=== PATIENT | male | born 1935 | race Caucasian/White ===

== ENCOUNTER → 2016-12-24 | Outpatient (REF) | payer MEDICARE, OTHER | LOC: M SMT 16:54 | PROVIDERS: ATTEND Urology | DX: R31.29 Other microscopic hematuria (principal) | CPT/HCPCS: 87086; G0463 ==

== ENCOUNTER 2018-03-08 13:34 | Emergency (ER) | payer MEDICARE, OTHER ==
[~2018-03-08] VITALS: Ht 177.8 cm; Wt 90.9 kg
[2018-03-08 14:11] LABS: BASO % 0.4 % (0.0-1.0); EOS # 0.5 10^3/uL (0.0-0.50); EOS % 7.1 % (0.0-3.0); HEMATOCRIT 36.7 % (42.0-52.0); HEMOGLOBIN 12.2 g/dl (13.5-17.5); LYMPH # 1.1 10^3/uL (1.5-4.5); LYMPH % 15.6 % (24.0-44.0); MEAN CORPUSCULAR HEMOGLOBIN 33.2 pg (27.0-33.0); MEAN CORPUSCULAR HGB CONC 33.2 g/dl (32.0-36.5); MEAN CORPUSCULAR VOLUME 99.7 fl (80.0-96.0); MONO # 0.6 10^3/uL (0.0-0.8); MONO % 8.2 % (0.0-5.0); NEUTROPHILS # 4.8 10^3/uL (1.8-7.7); NEUTROPHILS % 68.4 % (36.0-66.0); PLATELET COUNT, AUTOMATED 166 10^3/uL (150-450); RED BLOOD COUNT 3.68 10^6/uL (4.30-6.10); WHITE BLOOD COUNT 6.9 10^3/uL (4.0-10.0)
[2018-03-08] MEDS ORDERED: LISI10TA4 PO (14:13)
[2018-03-08] MEDS ORDERED: ELIQ2.5T PO (14:13)
[2018-03-08] MEDS ORDERED: ALLO10TA PO (14:13)
[2018-03-08] MEDS ORDERED: ACET500T15 PO (14:13)
[2018-03-08] MEDS ORDERED: GABA-1171 PO (14:13)
[2018-03-08] MEDS ORDERED: SITA50TAB PO (14:13)
[2018-03-08] MEDS ORDERED: CARV6.25 PO (14:13)
[2018-03-08] MEDS ORDERED: ATOR1TAB21 PO (14:13)
[2018-03-08 14:18] LABS: VENOUS BASE EXCESS -2.9 (-2.0-2.0); VENOUS HCO3 24.1 MEQ/L (23.0-27.0); VENOUS O2 SATURATION 83.9 % (60.0-80.0); VENOUS PARTIAL PRESSURE CO2 50.6 mmHg (38.0-50.0); VENOUS PH 7.295 UNITS (7.330-7.430); VENOUS STANDARD HCO3 21.8 MEQ/L; VENOUS TOTAL CO2 25.6 MEQ/L (24.0-28.0)
[2018-03-08 14:27] LABS: INR 1.13; PROTHROMBIN TIME 14.7 SECONDS (12.1-14.4)
--- NOTE | 2018-03-08 14:27 | REP ---
Chest one-view HISTORY: Cough Comparison: 07/19/2012 An increase in interstitial markings is present in the lungs consistent with chronic interstitial fibrosis. The heart is normal in size. The pulmonary vasculature is normal in appearance. Impression: Chronic interstitial fibrosis. Electronically Signed by Karlo Rawls MD 03/08/2018 02:18 P
[2018-03-08 14:51] LABS: INFLUENZA A AMPLIFICATION NEGATIVE (NEGATIVE); INFLUENZA B AMPLIFICATION NEGATIVE (NEGATIVE)
[2018-03-08 15:01] LABS: ALBUMIN 2.5 GM/DL (3.2-5.2); ALT/SGPT 24 U/L (12-78); BILIRUBIN,DIRECT < 0.1 MG/DL (0.0-0.2); BILIRUBIN,TOTAL 0.3 MG/DL (0.2-1.0); BLOOD UREA NITROGEN 34 MG/DL (7-18); CALCIUM LEVEL 8.3 MG/DL (8.8-10.2); CARBON DIOXIDE LEVEL 21 MEQ/L (21-32); CHLORIDE LEVEL 108 MEQ/L (98-107); CPK CREATINE PHOSPHOKINASE 86 U/L (39-308); CREATININE FOR GFR 1.75 MG/DL (0.70-1.30); GLOMERULAR FILTRATION RATE 39.9 (>35); GLUCOSE, FASTING 109 MG/DL (70-100); MB/CK RELATIVE INDEX 3.72 (< OR =4); NT-PRO BNP 8929 PG/ML (<450); POTASSIUM SERUM 4.2 MEQ/L (3.5-5.1); SODIUM LEVEL 140 MEQ/L (136-145); TOTAL PROTEIN 5.8 GM/DL (6.4-8.2); TROPONIN I 0.02 NG/ML (< 0.10)
--- NOTE | 2018-03-08 15:42 | REP ---
BILATERAL LOWER EXTREMITY DUPLEX VEINS: HISTORY: Swelling. RIGHT LOWER EXTREMITY: There are no filling defects in the deep venous system. The deep venous system is patent. IMPRESSION: There is no deep venous thrombosis. LEFT LOWER EXTREMITY: There are no filling defects in the deep venous system. The deep venous system is patent. IMPRESSION: There is no deep venous thrombosis. Electronically Signed by Karlo Rawls MD 03/08/2018 03:54 P
[2018-03-08] MEDS ORDERED: FUROSEMIDE 40 MG/4 ML VIAL (J1940) IV ONE (16:15)
[2018-03-08] MEDS ORDERED: DEMA20TA6 PO (16:18)
[2018-03-08 17:24] VITALS: BP 182/93
--- NOTE | 2018-03-08 20:23 | ECGEPIP ---
Stationary ECG Study [facility] - ED Test Date: 2018-03-08 Pat Name: ARRON MACIAS Department: Room: - Gender: M Admitting Manager: TC : 1935 Requested By: Gisella Mcneal Order Number: [id number] Reading MD: Gisella Mcneal Measurements Intervals [place] Rate: 81 P: [place]: 0 QRS: -45 QRSD: 117 T: -1 QT: 375 QTc: 437 Interpretive Statements ATRIAL FIBRILLATION WITH ABERRANT CONDUCTION OR VENTRICULAR PREMATURE COMPLEXES MARKED LEFT AXIS DEVIATION ANTEROSEPTAL MYOCARDIAL INFARCTION, OF INDETERMINATE AGE NO PRIOR FOR COMPARISON Electronically Signed On 03-08-2018 20:23:51 EST by Gisella Mcneal
== END 2018-03-08 17:25 | disposition home or self-care (01) ==
LOC: M ED 13:34
DX: I50.30 Unspecified diastolic (congestive) heart failure (principal); I11.0 Hypertensive heart disease with heart failure; I48.91 Unspecified atrial fibrillation; E78.5 Hyperlipidemia, unspecified; I27.20 Pulmonary hypertension, unspecified; Z88.0 Allergy status to penicillin; Z88.8 Allergy status to other drugs, medicaments and biological substances; Z79.899 Other long term (current) drug therapy; Z79.01 Long term (current) use of anticoagulants; Z79.84 Long term (current) use of oral hypoglycemic drugs
CPT/HCPCS: 36415; 71045; 80048; 80076; 82550; 82553; 82803; 83605; 83880; 84443; 84484; 85025; 85610; 87040; 87486; 87502; 87581; 87633; 87798; 93005; 93041; 93970; 96374; 99285; J1940

== ENCOUNTER → 2018-03-13 | Outpatient (CLI) | payer MEDICARE, OTHER ==
[~2018-03-13] MED LIST: ACET500T15 PO; ALLO10TA PO; ATOR1TAB21 PO; CARV6.25 PO; DEMA20TA6 PO; ELIQ2.5T PO; GABA-1171 PO; LISI10TA4 PO; SITA50TAB PO
[2018-03-13 13:44] LABS: ALBUMIN 2.5 GM/DL (3.2-5.2); CALCIUM LEVEL 8.2 MG/DL (8.8-10.2); CREATININE FOR GFR 1.77 MG/DL (0.70-1.30); GLOMERULAR FILTRATION RATE 39.4 (>35); PHOSPHORUS LEVEL 3.8 MG/DL (2.5-4.9); POTASSIUM SERUM 3.8 MEQ/L (3.5-5.1)
== END ==
LOC: M LAB 12:21
PROVIDERS: ATTEND Internal Medicine Cardiovascular Disease
DX: I50.31 Acute diastolic (congestive) heart failure (principal)

== ENCOUNTER 2018-05-11 12:54 | Emergency (ER) | payer MEDICARE, OTHER ==
[~2018-05-11] VITALS: Ht 177.8 cm; Wt 40.9 kg
--- NOTE | 2018-05-11 14:07 | REP ---
CHEST, PORTABLE: Two AP portable views of the chest are performed and compared to a prior study of 03/08/2018. There appears to be infiltrate/atelectasis in each lung base. I suspect small effusions. There is mild cardiomegaly. There is calcification and tortuosity of the thoracic aorta. The mediastinal silhouette is unchanged. IMPRESSION: Patchy bibasilar atelectasis/infiltrate with probable small effusions. Electronically Signed by Mauricio Moyer MD 05/11/2018 05:12 P
[2018-05-11 14:40] LABS: BASO % 0.5 % (0.0-1.0); EOS # 0.5 10^3/uL (0.0-0.50); EOS % 5.7 % (0.0-3.0); HEMATOCRIT 33.6 % (42.0-52.0); HEMOGLOBIN 10.8 g/dl (13.5-17.5); LYMPH % 12.5 % (24.0-44.0); MEAN CORPUSCULAR HEMOGLOBIN 32.1 pg (27.0-33.0); MEAN CORPUSCULAR HGB CONC 32.1 g/dl (32.0-36.5); MONO # 0.6 10^3/uL (0.0-0.8); MONO % 7.6 % (0.0-5.0); NEUTROPHILS # 5.9 10^3/uL (1.8-7.7); NEUTROPHILS % 73.3 % (36.0-66.0); PLATELET COUNT, AUTOMATED 212 10^3/uL (150-450); RED BLOOD COUNT 3.36 10^6/uL (4.30-6.10); WHITE BLOOD COUNT 8.1 10^3/uL (4.0-10.0)
[2018-05-11 14:48] LABS: VENOUS BASE EXCESS 0.7 (-2.0-2.0); VENOUS HCO3 26.6 MEQ/L (23.0-27.0); VENOUS O2 SATURATION 69.5 % (60.0-80.0); VENOUS PARTIAL PRESSURE CO2 47.8 mmHg (38.0-50.0); VENOUS PARTIAL PRESSURE O2 40.8 mmHg (30.0-50.0); VENOUS PH 7.363 UNITS (7.330-7.430); VENOUS STANDARD HCO3 24.5 MEQ/L
[2018-05-11 14:51] LABS: INR 1.27
[2018-05-11 15:10] LABS: BILIRUBIN,DIRECT 0.1 MG/DL (0.0-0.2); BILIRUBIN,TOTAL 0.3 MG/DL (0.2-1.0); CALCIUM LEVEL 8.1 MG/DL (8.8-10.2); CREATININE FOR GFR 1.65 MG/DL (0.70-1.30); GLOMERULAR FILTRATION RATE 42.7 (>35); MB/CK RELATIVE INDEX 5.24 (< OR =4); POTASSIUM SERUM 3.6 MEQ/L (3.5-5.1); THYROID STIMULATING HORMONE 3.14 uIU/ML (0.358-3.740); TOTAL PROTEIN 5.2 GM/DL (6.4-8.2); TROPONIN I 0.03 NG/ML (< 0.10)
[2018-05-11 15:11] LABS: INFLUENZA A AMPLIFICATION NEGATIVE (NEGATIVE); INFLUENZA B AMPLIFICATION NEGATIVE (NEGATIVE)
[2018-05-11] MEDS ORDERED: FUROSEMIDE 40 MG/4 ML VIAL (J1940) IV ONE (16:00)
[2018-05-11] MEDS ORDERED: NITROGLYCERIN 2% OINT 1 GM *U/D* PKT TOP ONE ×2 (18:30→21:15)
[2018-05-11] MEDS ORDERED: CARVedilol 6.25 MG TAB PO ONE ×2 (20:00→21:30)
[2018-05-11 21:33] VITALS: BP 198/99
[2018-05-11 21:34] VITALS: BP 180/90
--- NOTE | 2018-05-12 06:59 | ECGEPIP ---
Stationary ECG Study [facility] - ED Test Date: 2018-05-11 Pat Name: ARRON MACIAS Department: Room: - Gender: M Lead Sustainability Specialist: TC : 1935 Requested By: Gisella Mcneal Order Number: [id number] Reading MD: Jasvir Iqbal Measurements Intervals [place] Rate: 80 P: MD: 0 QRS: -31 QRSD: 125 T: -12 QT: 398 QTc: 460 Interpretive Statements ATRIAL FIBRILLATION WITH ABERRANT CONDUCTION OR VENTRICULAR PREMATURE COMPLEXES LEFT AXIS DEVIATION ANTEROSEPTAL MYOCARDIAL INFARCTION, OF INDETERMINATE AGE SIMILAR TO 03/08/18 Electronically Signed On 05-12-2018 6:59:15 EST by Jasvir Iqbal
== END 2018-05-11 21:38 | disposition short-term general hospital (02) ==
LOC: M ED 12:54
DX: I50.9 Heart failure, unspecified (principal); I35.0 Nonrheumatic aortic (valve) stenosis; I48.91 Unspecified atrial fibrillation; R91.8 Other nonspecific abnormal finding of lung field; E11.9 Type 2 diabetes mellitus without complications; I11.0 Hypertensive heart disease with heart failure; E78.5 Hyperlipidemia, unspecified; I27.20 Pulmonary hypertension, unspecified; Z87.891 Personal history of nicotine dependence; Z88.0 Allergy status to penicillin; Z88.8 Allergy status to other drugs, medicaments and biological substances; Z79.899 Other long term (current) drug therapy; Z79.01 Long term (current) use of anticoagulants
CPT/HCPCS: 71045; 80048; 80076; 82550; 82553; 82803; 83605; 83880; 84443; 84484; 85025; 85610; 87040; 87502; 93005; 93041; 96374; 99285; J1940

== ENCOUNTER 2018-05-27 13:49 | Inpatient (IN) | payer MEDICARE, OTHER ==
[~2018-05-27] VITALS: Ht 177.8 cm; Wt 90.9 kg
[2018-05-27] MEDS ORDERED: PEPC1TAB5 PO (14:11)
[2018-05-27] MEDS ORDERED: ASPI-161 PO (14:11)
[2018-05-27] MEDS ORDERED: SENN8.6T28 PO (14:11)
[2018-05-27] MEDS ORDERED: SYNT25TA PO (14:11)
[2018-05-27] MEDS ORDERED: FUROSEMIDE 40 MG/4 ML VIAL (J1940) IV ONE (14:30)
[2018-05-27] MEDS ORDERED: NITROGLYCERIN 2% OINT 1 GM *U/D* PKT TOP ONE (14:30)
[2018-05-27 14:50] LABS: BASO % 0.3 % (0.0-1.0); EOS # 0.2 10^3/uL (0.0-0.50); EOS % 2.1 % (0.0-3.0); HEMATOCRIT 29.1 % (42.0-52.0); HEMOGLOBIN 9.4 g/dl (13.5-17.5); LYMPH # 0.8 10^3/uL (1.5-4.5); LYMPH % 8.5 % (24.0-44.0); MEAN CORPUSCULAR HEMOGLOBIN 32.2 pg (27.0-33.0); MEAN CORPUSCULAR HGB CONC 32.3 g/dl (32.0-36.5); MEAN CORPUSCULAR VOLUME 99.7 fl (80.0-96.0); MONO # 0.8 10^3/uL (0.0-0.8); MONO % 7.6 % (0.0-5.0); NEUTROPHILS % 80.9 % (36.0-66.0); PLATELET COUNT, AUTOMATED 265 10^3/uL (150-450); RED BLOOD COUNT 2.92 10^6/uL (4.30-6.10); WHITE BLOOD COUNT 9.9 10^3/uL (4.0-10.0)
[2018-05-27 15:05] LABS: INR 1.58; PROTHROMBIN TIME 19.1 SECONDS (12.1-14.4)
[2018-05-27 15:09] LABS: INFLUENZA A AMPLIFICATION NEGATIVE (NEGATIVE); INFLUENZA B AMPLIFICATION NEGATIVE (NEGATIVE)
[2018-05-27 15:14] LABS: ALBUMIN 2.2 GM/DL (3.2-5.2); BILIRUBIN,DIRECT 0.1 MG/DL (0.0-0.2); BILIRUBIN,TOTAL 0.4 MG/DL (0.2-1.0); CALCIUM LEVEL 8.4 MG/DL (8.8-10.2); CREATININE FOR GFR 2.09 MG/DL (0.70-1.30); GLOMERULAR FILTRATION RATE 32.5 (>35); MB/CK RELATIVE INDEX 7.08 (< OR =4); THYROID STIMULATING HORMONE 3.71 uIU/ML (0.358-3.740); THYROXINE (T4) 8.6 UG/DL (4.5-12.0); TOTAL PROTEIN 5.7 GM/DL (6.4-8.2); TROPONIN I 0.06 NG/ML (< 0.10)
[2018-05-27 15:45] LABS: MAGNESIUM LEVEL 1.8 MG/DL (1.8-2.4)
[2018-05-27] MEDS ORDERED: SITA50TAB PO (17:53)
[2018-05-27] MEDS ORDERED: OCEA0.654 (17:53)
[2018-05-27] MEDS ORDERED: ZYLO300T6 PO (17:53)
[2018-05-27] MEDS ORDERED: TORS20TA2 PO (17:53)
[2018-05-27] MEDS ORDERED: ASPI81TA24 PO (17:53)
[2018-05-27] MEDS ORDERED: ATOR40TA75 PO (17:53)
[2018-05-27] MEDS ORDERED: CARV12.5 PO (17:53)
[2018-05-27] MEDS ORDERED: ACET1TAB55 PO (17:55)
[2018-05-27] MEDS ORDERED: LISI10TA4 PO (17:56)
[2018-05-27] MEDS ORDERED: CLEO300C2 PO (17:59)
[2018-05-27] MEDS ORDERED: SODIUM CHLORIDE NASAL 0.65% SPRAY BTL (OCEAN) PRN (18:30)
--- NOTE | 2018-05-27 19:21 | ECGEPIP ---
Stationary ECG Study [facility] - ED Test Date: 2018-05-27 Pat Name: ARRON MACIAS Department: Room: - Gender: M Assembly Machine Offbearer: DEMARCO : 1935 Requested By: ANDRESSA Torres Order Number: [id number] Reading MD: Jasvir Iqbal Measurements Intervals [place] Rate: 84 P: [place]: 0 QRS: -22 QRSD: 173 T: 103 QT: 416 QTc: 493 Interpretive Statements ATRIAL FIBRILLATION WITH ABERRANT CONDUCTION OR VENTRICULAR PREMATURE COMPLEXES LEFT BUNDLE BRANCH BLOCK BASELINE ARTIFACT AFFECTS INTERPRETATION Electronically Signed On 05-27-2018 19:21:31 EDT by Jasvir Iqbal
[2018-05-27] MEDS ORDERED: hydrALAZINE INJ 20 MG/ML VIAL IV STA (19:46)
[2018-05-27] MEDS ORDERED: hydrALAZINE INJ 20 MG/ML VIAL IV SCH (20:00)
[2018-05-27] MEDS ORDERED: hydrALAZINE INJ 20 MG/ML VIAL IV PRN (20:08)
--- NOTE | 2018-05-27 20:14 | HPEPDOC ---
[facility] Medical History & Physical Date of Admission May 27, 2018 Attending Physician: JABIER ZARATE MD History and Physical CHIEF COMPLAINT: Shortness of breath HISTORY OF PRESENT ILLNESS:. Patient is an 82-year-old male with a past medical history significant for severe aortic stenosis with recent transcatheter aortic heart valve replacement (TAVR), recent diagnosis of congestive heart failure with diastolic dysfunction, atrial fibrillation on chronic anticoagulation, hypothyroidism and diabetes who presented to [facility] emergency department with complaint of shortness of breath. Patient is accompanied by his family who gave the majority of the history as the patient has a baseline confusion secondary to a recent stroke. Family states that the patient was recently diagnosed with diastolic congestive heart failure in March. He also had a diagnosis of aortic stenosis for which 2 weeks ago he had a TAVR completed at [facility] in [place]. The family states that during his hos pital stay at [facility], he suffered a stroke, since that time the patient has difficulty with comprehension. With exception to his stroke, his TAVR procedure went well. In the days following he did well. During his stay at [facility], his Torosemide dose was increased to 40 mg BID. The patient had returned home on Tuesday05/22/2018. Since that time, he has been complaining of progressive shortn ess of breath. He also has developed difficulty laying flat and on his side. He states that he feels like he can't breath. He denies any chest pain. The patients family also mentioned that they noticed that his legs were quite swollen since returning home from the hospital. The patient has been compliant with his medication and denies any excessive salt or fluid intake. The family became concerned as he continued to complain of shortness of breath and appeared to be getting worse. The family decided to bring him to the ER. At the ER the patient received a CT which demonstrated a large right sided pleural effusion as well as a left pleural effusion. His laboratory studies suggested volume overload as well as an CARLOS. He received 40mg IV lasix injection. Given his recent TAVR procedure, the patient received an Echocardiogram which was read by the middle school special education teacher manager marketing. The patients echo dem onstrated no abnormality with the aortic valve. The manager marketing middle school special education teacher suggested further diaeresis. Hospitalist service was then consulted and the patient was admitted for further evaluation and management. PAST MEDICAL HISTORY: 1. Aortic stenosis and with recent transcatheter aortic heart valve replacement. 2. Diastolic congestive heart failure. 3. Atrial fibrillation on chronic anticoagulation. 4. Hypothyroidism 5. History of cerebral vascular accident. 6. Diabetes mellitus type 2 PAST SURGICAL HISTORY: 1. TAVR SOCIAL HISTORY: Patient lives at home with . He is a former smoker who quit 50 years ago. He is an occasional drinker. He denies illicit drug use FAMILY HISTORY: Noncontributory ALLERGIES: Please see below. REVIEW OF SYSTEMS: CONSTITUTIONAL: Denies fevers, chills, night sweats, fatigue, or unintentional weight loss. HEENT:. Denies dysphagia. Denies cough. CARDIOVASCULAR:. Denies chest pain, denies palpitations or feelings of heart racing. RESPIRATORY: Complains of shortness of breath. Denies wheezing GASTROINTESTINAL:. Denies abdominal pain. Denies diarrhea or constipation. GENITOURINARY:. Denies dysuria, or increased frequency. SKIN: Denies rash or lesions. NEUROLOGICAL: Admits to memory and cognition issues secondary to his recent stroke. PSYCHIATRIC:. Denies depression or anxiety. ENDOCRINE: Denies heat intolerance or cold intolerance HEMATOLOGIC/LYMPHATIC: Denies easy bruising or bleeding HOME MEDICATIONS: Please see below. PHYSICAL EXAMINATION: VITAL SIGNS: Temperature 97.9, pulse 102, respiratory rate 20, blood pressure 192\97, pulse oximetry 94% on room air. GENERAL APPEARANCE: Awake and alert. Appears to have baseline confusion although oriented to person and place. Appears in no acute distress. HEENT: Atraumatic, normocephalic. Trachea is midline. Eyes are non-icteric CARDIOVASCULAR: Distant heart sounds. Irregularly irregular rhythm. Slightly tachycardic rate. No clicks, rubs, or murmurs LUNGS: Diminished breath sounds bilaterally greater on the right compared to left. Slight crackles bilaterally. No wheezes. Diaphragmatic breathing ABDOMEN: Soft, nondistended, nontender to palpation in all four quadrants. Positive bowel sounds. Diaphragmatic breathing EXTREMITIES: 2-3mm pitting edema in bilateral lower extremities NEUROLOGICAL: CN II-XII grossly intact. Baseline cognitive dysfunction PSYCHIATRIC: Mood and affect appear appropriate LABORATORY DATA: See below. IMAGING: CT imaging demonstrating bilateral pleural effusion. Right greater than left. MICROBIOLOGY: Please see below. ASSESSMENT: Patient is an 82 year old male with recent TAVR procedure for aortic stenosis, history of diastolic CHF, atrial fibrillation, hypothyroidism, and diabetes mellitus type II who presented to the [facility] ER with complaint of shortness of breath which has progressed since his discharge from [facility] on Tuesday05/22/2018. Patient had received an echocardiogram in the ED which was read by the middle school special education teacher manager marketing and demonstrated no abnormalities with the aortic valve. . PLAN: 1. Type 1 Acute Cardiorenal Syndrome -Patient has a history of diastolic heart failure. His diuretics were recently increased however, he continued to develop shortness of breath over the past week. -Patient received 40 IV lasix in ED. He will receive 60mg IV lasix BID. -Monitor BMP with ongoing dieresis -Strict I's&O's with 1500cc fluid restriction -Echocardiogram performed in ED. Dr. Prasad reviewed. Aortic valve is within normal limits. Suggests diaeresis -Patient had an elevated creatinine likely secondary to his volume overload will continue to monitor Cr for resolution with ongoing dieresis -Consider Cardiology consult if patient does not improve with dieresis 2. CARLOS likely seocndary to Acute diastolic CHF excaerbation -As stated in above. Patient likely has cardiorenal syndrome secondary to volume overload. -Will trend Cr for resolution -Consider Nephro consult if patient remains volume overloaded 3. Bilateral Pleural Effusion -Patient has a large right sided pleural effusion on the right as well as an effusion on the left likely secondary to his CHF -Will continue to monitor for improvement with lasix treatment 4. Atrial fibrillation -Patient is anticoagulated on Eliquis. Will continue -Will increase dose of metoprolol as patient was slightly tachycardiac 5. Hypertension -Patient was fairly hypertensive at admission. Have given hydralizine 10mg IV. -IV hydralazine q4hprn for systolic greater than 180 - His hypertension will likely resolve with ongoing diaeresis 6. Diabetes mellitus type 2 -Sliding scale coverage 7. DVT prophylaxis -Patient is chronically anticoagulated on eliquis Vital Signs Vital Signs Date Time Temp Pulse Resp B/P (MAP) Pulse Ox O2 Delivery O2 Flow Rate FiO2 05/27/18 19:05 97.9 102 20 192/97 (128) 94 Room Air Laboratory Data Labs 24H Laboratory Tests 2 05/27/18 14:22: Immature Granulocyte % (Auto) 0.6, White Blood Count 9.9, Red Blood Count 2.92L, Hemoglobin 9.4L, Hematocrit 29.1L, Mean Corpuscular Volume 99.7H, Mean Corpuscular Hemoglobin 32.2, Mean Corpuscular Hemoglobin Concent 32.3, Red Cell Distribution Width 15.1H, Platelet Count 265, Neutrophils (%) (Auto) 80.9H, Lymphocytes (%) (Auto) 8.5L, Monocytes (%) (Auto) 7.6H, Eosinophils (%) (Auto) 2.1, Basophils (%) (Auto) 0.3, Neutrophils # (Auto) 8.0H, Lymphocytes # (Auto) 0.8L, Monocytes # (Auto) 0.8, Eosinophils # (Auto) 0.2, Basophils # (Auto) 0.0, Nucleated Red Blood Cells % (auto) 0.0, Prothrombin Time 19.1H, Prothromb Time International Ratio 1.58, Anion Gap 9, Glomerular Filtration Rate 32.5L, Calcium Level 8.4L, Magnesium Level 1.8, Aspartate Amino Transf (AST/SGOT) 17, Alanine Aminotransferase (ALT/SGPT) 15, Alkaline Phosphatase 210H, Total Bilirubin 0.4, Direct Bilirubin 0.1, Total Creatine Kinase 48, Creatine Kinase MB 3.0, Creatine Kinase MB Relative Index 7.08H, Troponin I 0.06, WK-Gtx-F-Type Natriuretic Pe ptide [id number], Total Protein 5.7L, Albumin 2.2L, Albumin/Globulin Ratio 0.63L, Thyroid Stimulating Hormone (TSH) 3.710, Thyroxine (T4) 8.6 05/27/18 14:23: Urine Color YELLOW, Urine Appearance HAZY, Urine pH 5.0, Urine Specific [place] 1.014, Urine Protein 3+H, Urine Glucose (UA) 2+H, Urine Ketones NEGATIVE, Urine Blood 1+H, Urine Nitrite NEGATIVE, Urine Bilirubin NEGATIVE, Urine Urobilinogen 0.2, Urine Leukocyte Esterase NEGATIVE, Urine WBC (Auto) 18H, Urine RBC (Auto) 9H, Urine Hyaline Casts (Auto) 27, Urine Bacteria (Auto) 1+H, Urine Squamous Epithelial Cells 1, Urine Mucus (Auto) SMALL, Urine Sperm (Auto) , Lactic Acid Level 1.0, Influenza Type A (RT-PCR) NEGATIVE, Influenza Type B (RT-PCR) NEGATIVE CBC/BMP Laboratory Tests 05/27/18 14:22 Red Blood Count 2.92 L, Mean Corpuscular Volume 99.7 H, Mean Corpuscular Hemoglobin 32.2, Mean Corpuscular Hemoglobin Concent 32.3, Red Cell Distribution Width 15.1 H, Neutrophils (%) (Auto) 80.9 H, Lymphocytes (%) (Auto) 8.5 L, Monocytes (%) (Auto) 7.6 H, Eosinophils (%) (Auto) 2.1, Basophils (%) (Auto) 0.3, Neutrophils # (Auto) 8.0 H, Lymphocytes # (Auto) 0.8 L, Monocytes # (Auto) 0.8, Eosinophils # (Auto) 0.2, Basophils # (Auto) 0.0 Microbiology Microbiology 05/27/18 Blood Culture, Received Pending 05/27/18 Blood Culture, Received Pending 05/27/18 Urine Culture, Received Pending Home Medications Scheduled Allopurinol (Zyloprim) 300 Mg Tab, 300 MG PO QPM Apixaban Base (Eliquis) 2.5 Mg Tab, 2.5 MG PO BID Aspirin (Aspirin EC) 81 Mg Tab, 81 MG PO DAILY Atorvastatin Calcium (Atorvastatin Calcium) 40 Mg Tab, 40 MG PO DAILY Carvedilol (Carvedilol) 12.5 Mg Tab, 12.5 MG PO BID Clindamycin Hcl (Cleocin) 300 Mg Cap, 600 MG PO ASDIRECTED TAKE 1 HOUR PRIOR TO ANY DENTAL PROCEDURES OR CLEANINGS Famotidine (Pepcid) 20 Mg Tab, 20 MG PO QHS Levothyroxine Sodium (Synthroid) 25 Mcg Tab, 25 MCG PO DAILY Lisinopril (Lisinopril) 10 Mg Tab, 10 MG PO DAILY Senna (Senna-Tabs) 8.6 Mg Tab, 8.6 MG PO DAILY Sitagliptin (Januvia) 50 Mg Tab, 50 MG PO QPM Torsemide (Torsemide) 20 Mg Tab, 40 MG PO BID Scheduled PRN Acetaminophen (Acetaminophen) 325 Mg Tab, 650 MG PO Q4H PRN for PAIN / FEVER Sodium Chloride (Pope Nasal Vici) 0.65 % Spr, 2 SPRAY NA QHS PRN for NASAL CONGESTION EACH NOSTRIL Allergies Coded Allergies: NSAIDs (Verified Allergy, Unknown, 03/08/18) Penicillins (Verified Allergy, Unknown, 03/08/18) Attending Note I have both independently examined this patient as well as reviewed the H&P. I have discussed in detail with the resident the findings and plan of treatment as documented in the resident's note GME ATTESTATION GME ATTESTATION My faculty preceptor for this patient encounter was physically present during the encounter and was fully available. All aspects of the patient interview, examination, medical decision making process, and medical care plan development were reviewed and approved by the faculty preceptor. The faculty preceptor is aware and concurs with the plan as stated in the body of this note and will attest to such by his/her cosignature. MACI GÓMEZ DO May 27, 2018 20:14 JUSTIN PERLA MD May 29, 2018 16:51
[2018-05-27] MEDS ORDERED: GLUCAGON FOR INJ 1 MG VIAL (J1610) SC PRN (20:15)
[2018-05-27] MEDS ORDERED: GLUCOSE 4 GM CHEW TABLET PO PRN (20:15)
[2018-05-27] MEDS ORDERED: DEXTROSE 50% 50 ML SYRINGE IV PRN (20:15)
[2018-05-27 20:28] LABS: CREATININE FOR GFR 2.1 MG/DL (0.70-1.30); GLOMERULAR FILTRATION RATE 32.3 (>35); POTASSIUM SERUM 4.5 MEQ/L (3.5-5.1)
[2018-05-27] MEDS: HumaLOG INSULIN (NovoLOG) PER UNIT SC SCH (21:00)
[2018-05-27 21:10] VITALS: BP 159/95
[2018-05-27] MEDS: FUROSEMIDE 100 MG/10 ML VIAL (J1940) IV SCH (22:12)
[2018-05-27] MEDS: ALLOPURINOL 300 MG TAB PO SCH (22:14)
[2018-05-27] MEDS: CARVedilol 12.5 MG TAB PO SCH (22:14)
[2018-05-27] MEDS: APIXABAN 2.5 MG TAB (ELIQUIS) PO SCH (22:14)
[2018-05-27] MEDS: FAMOTIDINE 20 MG TAB PO SCH (22:14)
[2018-05-28] VITALS (7 sets, daily range): BP systolic 124–150; BP diastolic 68–92
[2018-05-28 05:51] LABS: HEMATOCRIT 28.5 % (42.0-52.0); HEMOGLOBIN 9.3 g/dl (13.5-17.5); MEAN CORPUSCULAR HEMOGLOBIN 31.7 pg (27.0-33.0); MEAN CORPUSCULAR HGB CONC 32.6 g/dl (32.0-36.5); MEAN CORPUSCULAR VOLUME 97.3 fl (80.0-96.0); PLATELET COUNT, AUTOMATED 256 10^3/uL (150-450); RED BLOOD COUNT 2.93 10^6/uL (4.30-6.10); WHITE BLOOD COUNT 9.3 10^3/uL (4.0-10.0)
[2018-05-28] MEDS: LEVOTHYROXINE 25MCG TABLET (0.025MG) PO SCH (06:00)
--- NOTE | 2018-05-28 06:58 | REP ---
PORTABLE CHEST: AP portable view of the chest is performed and compared to a prior study of 05/11/2018. There is increased infiltrate and small right effusion in the right base. Left retrocardiac infiltrate is essentially unchanged. Cardiac silhouette is prominent and unchanged. There is calcification of the thoracic aorta. IMPRESSION: Increased right basilar infiltrate and increase in small right pleural effusion. Left retrocardiac infiltrate essentially stable. Electronically Signed by Mauricio Moyer MD 05/28/2018 10:20 A
[2018-05-28 07:06] LABS: CALCIUM LEVEL 8.6 MG/DL (8.8-10.2); CREATININE FOR GFR 2.05 MG/DL (0.70-1.30); GLOMERULAR FILTRATION RATE 33.3 (>35); POTASSIUM SERUM 3.9 MEQ/L (3.5-5.1); TROPONIN I 0.08 NG/ML (< 0.10)
[2018-05-28] MEDS: HumaLOG INSULIN (NovoLOG) PER UNIT SC SCH ×4 (07:30→21:00)
--- NOTE | 2018-05-28 08:09 | REP ---
CT CHEST WITHOUT IV CONTRAST: CT chest is performed without IV contrast. Sagittal and coronal reconstruction images are performed. There is a large right pleural effusion. There is patchy atelectasis/infiltrate in the right lower lobe and middle lobe. Moderate left pleural effusion is present. There is mild patchy atelectasis/infiltrate in the lingula and left lower lobe. Heart is upper limits of normal in size. Scattered subcentimeter mediastinal lymph nodes are present. Atherosclerotic calcification is seen of the thoracic aorta. There is a prosthetic aortic valve. I do not see significant pericardial fluid. There are degenerative changes of the spine. IMPRESSION: Large right pleural effusion with adjacent right base atelectasis/infiltrate. Moderate left pleural effusion with a lesser degree of left base atelectasis/infiltrate. Electronically Signed by Mauricio Moyer MD 05/28/2018 10:25 A
--- NOTE | 2018-05-28 08:11 | ECHO ---
DATE OF STUDY: 05/27/2018 REFERRING PHYSICIAN: Rafi Garza MD INDICATION: Heart failure, unspecified. HEIGHT: 177 cm. WEIGHT: 91 kg. 2D MEASUREMENTS: Left atrium: 4.0 cm Ventricular septum: 1.22 cm Posterior wall: 1.23 cm Left ventricle diastole: 5.3 cm Aortic anulus: 2.1 cm Inferior vena cava: 2.6 cm with approximately 50% respiratory variation DOPPLER MEASUREMENTS: Aortic valve velocity: 171 cm/s LVOT velocity: 52.5 cm/s No aortic stenosis. No aortic regurgitation. Mild mitral regurgitation. No mitral stenosis. Mitral E velocity: 141 cm/s Mitral A velocity: 55.1 cm/s Mild desaturation time: 183 ms Moderate tricuspid regurgitation. Estimated right ventricle systolic pressure: 50 mmHg assuming a right pressure of 10 mmHg. MITRAL ANNULAR TISSUE DOPPLER: E prime septal: 6.42 cm/s E prime lateral: 6.53 cm/s DESCRIPTION: Rhythm was sinus with appearance of left bundle branch block pattern. This was a moderately technically difficult echocardiogram. This was a 2D, M-mode, color flow Doppler and pulse wave Doppler examination and included mitral annular tissue Doppler. CONCLUSIONS: 1. Very mild concentric left ventricle hypertrophy. Paradoxical septal motion with resultant mild reduction of overall left ventricle (LV) systolic function. Left ventricular ejection fraction (LVEF) 45% - 50% by visual assessment. Grade 2 LV diastolic dysfunction (pseudonormal LV filling pattern). 2. Well seated and normally functioning transaortic valve replacement (TAVR). No aortic stenosis or regurgitation. 3. Suggestive of moderate elevation of estimated right ventricle systolic pressure. Moderate tricuspid regurgitation. Normal right ventricle size and systolic function. Dilated inferior vena cava. 4. Bilateral pleural effusions. 5. Tiny pericardial effusion. 6. Mild mitral annular calcification. Mild mitral regurgitation. No mitral stenosis.
--- NOTE | 2018-05-28 08:14 | REP ---
CT ABDOMEN AND PELVIS WITHOUT CONTRAST: CT abdomen and pelvis performed without oral or IV contrast. Sagittal and coronal reconstruction images are performed. Comparison made with prior CT abdomen and pelvis 01/03/2017. The liver and gallbladder are grossly unremarkable. Spleen, adrenals and pancreas are grossly unremarkable. There are multiple bilateral renal cysts as seen on prior study. There is no evidence of renal or ureteral calculus and no hydroureteronephrosis. Simon catheter is seen in a collapsed urinary bladder. There is atherosclerotic calcification of the abdominal aorta with mild ectasia, but no aneurysm. Maximum AP diameter is 3 cm. I see no adenopathy. I see no free air. There is mild free fluid in the pelvis. I see no bowel wall thickening. There is sigmoid and left colonic diverticulosis without acute diverticulitis. There is no evidence of appendicitis. No pelvic mass is seen. There is a small left inguinal hernia containing fat. IMPRESSION: Multiple bilateral renal cysts. No renal or ureteral calculus and no hydroureteronephrosis. No evidence of appendicitis. No free air. Sigmoid and left colonic diverticula without evidence of acute diverticulitis. Mild free fluid in the pelvis. Simon catheter in a collapsed urinary bladder. Small left inguinal hernia contains fat. Electronically Signed by Mauricio Moyer MD 05/28/2018 10:25 A
[2018-05-28] MEDS: SENNA 8.6 MG TAB (SENOKOT) PO SCH (09:23)
[2018-05-28] MEDS: CARVedilol 12.5 MG TAB PO SCH ×2 (09:23→22:01)
[2018-05-28] MEDS: FUROSEMIDE 100 MG/10 ML VIAL (J1940) IV SCH ×2 (09:23→18:32)
[2018-05-28] MEDS: ATORVASTATIN 20 MG TAB PO SCH (09:24)
[2018-05-28] MEDS: APIXABAN 2.5 MG TAB (ELIQUIS) PO SCH ×2 (09:24→22:01)
[2018-05-28] MEDS: ASPIRIN 81 MG ENTERIC TAB PO SCH (09:24)
[2018-05-28 13:29] LABS: ABG BASE EXCESS 0.9 (-2.0-2.0); ABG O2 SATURATION 97.4 % (95.0-99.0); ABG PARTIAL PRESSURE CO2 37.9 mmHg (35.0-45.0); ABG PARTIAL PRESSURE O2 98.8 mmHg (75.0-100.0); ABG STANDARD HCO3 25.2 MEQ/L (22.0-26.0); ABG TOTAL CO2 26.2 MEQ/L (23.0-31.0); ABG pH (ARTERIAL) 7.437 UNITS (7.350-7.450)
[2018-05-28 19:27] LABS: CALCIUM LEVEL 8.8 MG/DL (8.8-10.2); GLOMERULAR FILTRATION RATE 34.2 (>35); POTASSIUM SERUM 3.5 MEQ/L (3.5-5.1)
--- NOTE | 2018-05-28 20:44 | IPN ---
DATE: 05/28/2018 SUBJECTIVE: Today, the patient tells me that he is feeling better. He denies any specific complaints. He tells me his shortness of breath improved, but he is certainly not back to his normal. The patient is accompanied by his son, who also helps with much of the history. OBJECTIVE: VITAL SIGNS: Temperature 98.3, pulse 81, respiratory rate 20, blood pressure (BP) 147/75, oxygen saturation 93% on 2 liters nasal canula. He has no oxygen requirement at this baseline. GENERAL: He is a very pleasant, elderly man sitting up in a chair. He does not appear to be in acute distress. HEENT: He has some elevation of his central venous pressure (CVP). Moist mucous membranes. CARDIOVASCULAR: Normal S1, S2. RESPIRATORY EXAM: He has some rales of the lower 1/3 of his lung clark bilaterally. ABDOMINAL EXAM: Bowel sounds present, abdomen soft. EXTREMITIES: There is 2+ edema bilaterally. LABORATORY STUDIES: White blood count (WBC) 9.3, hemoglobin 9.3, platelet count 256. Chemistry panel: Sodium 150, potassium 3.9, chloride 114, bicarbonate 27, BUN 59, creatinine 2.0. Two sets of cardiac enzymes were negative. INR was 1.58. The blood culture and urine culture are currently pending. IMAGING: The patient had a CT scan of his chest, which revealed large right pleural effusion and an adjacent right basilar atelectasis/infiltrate, moderate left-sided pleural effusion with a lesser degree of left basilar atelectasis/infiltrate. He also had an CT scan of the abdomen and pelvis, which revealed multiple bilateral renal cysts. Mild free air in the pelvis. Simon catheter in place. He did have an echocardiogram, which was read by Dr. Prasad, which reveals marked concentric left ventricular hypertrophy (LVH) with an ejection fraction of 45% to 50%, grade 2 diastolic dysfunction. Well seated normally functioning transaortic valve replacement. Trace pericardial effusion. 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 PROBLEMS: 1. Decompensated combined diastolic systolic congestive heart failure. History remains concerning given his recent type of procedure. He appears his valve was working quite well; however, he has progressed with heart failure fairly quickly since his last discharge. Will continue with aggressive diuresis. Will continue Lasix, but increasing it to IV 60 mg IV every 8 hours. He has a Simon catheter in place with a goal negative 2 liters per day. I suspect he has several liters and pounds of fluid remaining based on his impressive physical exam. Will also continue carvedilol and monitor his blood pressure closely. For the time being, his home lisinopril is on hold. 2. Acute kidney injury, possibly related to decompensated heart failure. Will continue to monitor renal function closely. We likely undergo aggressive diuresis. 3. Atrial fibrillation. He is anticoagulated with Eliquis. His rate controlled with Carvedilol. 4. Hypertension as outlined above. Will continue with his Coreg and aggressively diuresing him. Will monitor his pressures while we do this. No need for IV hydralazine or increasing his Coreg at this time. 5. Type 2 diabetes. Sliding scale insulin coverage. 6. Gout. Continue with allopurinol. 7. Dyslipidemia. Continue atorvastatin. 8. Hypothyroidism. Continue with levothyroxine. DISPOSITION: Pending his clinical improvement. He will be a consistent carbohydrate 2 gram diet with 1800 mL fluid restriction. His prognosis is guarded.
[2018-05-28] MEDS: ALLOPURINOL 300 MG TAB PO SCH (22:01)
[2018-05-28] MEDS: FAMOTIDINE 20 MG TAB PO SCH (22:02)
[2018-05-29] VITALS (7 sets, daily range): BP systolic 120–160; BP diastolic 60–90
[2018-05-29] MEDS: FUROSEMIDE 100 MG/10 ML VIAL (J1940) IV SCH ×3 (01:10→16:49)
[2018-05-29] MEDS: LEVOTHYROXINE 25MCG TABLET (0.025MG) PO SCH (05:10)
[2018-05-29 06:10] LABS: CALCIUM LEVEL 8.7 MG/DL (8.8-10.2); CREATININE FOR GFR 1.98 MG/DL (0.70-1.30); GLOMERULAR FILTRATION RATE 34.6 (>35); POTASSIUM SERUM 3.5 MEQ/L (3.5-5.1)
[2018-05-29] MEDS: HumaLOG INSULIN (NovoLOG) PER UNIT SC SCH ×4 (07:15→21:09)
[2018-05-29] MEDS: ATORVASTATIN 20 MG TAB PO SCH (09:21)
[2018-05-29] MEDS: ASPIRIN 81 MG ENTERIC TAB PO SCH (09:22)
[2018-05-29] MEDS: APIXABAN 2.5 MG TAB (ELIQUIS) PO SCH ×2 (09:22→21:09)
[2018-05-29] MEDS: SENNA 8.6 MG TAB (SENOKOT) PO SCH (09:22)
[2018-05-29] MEDS: CARVedilol 12.5 MG TAB PO SCH ×2 (09:23→21:09)
--- NOTE | 2018-05-29 09:41 | IPNPDOC ---
Date Seen The patient was seen on 05/29/18. Progress Note SUBJECTIVE: Patient was seen and examined this morning. He does have a degree of cognitive impairment which may be secondary to his recent stroke. He does state that he continues to be short of breath. He denies chest pain. He denies abdominal pain, nausea, vomiting, or diarrhea. He has a sitter in the room because he had previously attempted to remove his urinary catheter. OBJECTIVE PHYSICAL EXAMINATION: VITAL SIGNS: Please see below. GENERAL: Awake, alert, and oriented to person and place. He has a baseline cognitive impair. He appears in no acute distress and is lying in bed. HEENT: Atraumatic, normocephalic. Eyes are non-icteric. Trachea is midline. Mucous membranes are pink and moist. Dentition is poor CARDIOVASCULAR: Normal S1, S2. Distant heart sounds. Regular rate. Irregularly irregular rhythm. No clicks, rubs, or murmurs RESPIRATORY: Slightly diminished bilaterally. Clear to auscultation. No wheezes, rhonci, or rales ABDOMINAL: Soft, nondistended. Nontender to palpation throughout out. Positive bowel sounds EXTREMITIES: 2mm pitting edema in bilateral lower extremities. Full and equal pulses in bilateral upper and lower extremities NEUROLOGICAL: No focal neurological deficits. Baseline cognitive impairment PSYCHOLOGICAL: Mood and affect appear appropriate LABORATORY DATA, IMAGING STUDIES, MICROBIOLOGY: Please see below. Echocardiogram: DATE OF STUDY: 05/27/2018 REFERRING PHYSICIAN: Rafi Garza MD INDICATION: Heart failure, unspecified. HEIGHT: 177 cm. WEIGHT: 91 kg. 2D MEASUREMENTS: Left atrium: 4.0 cm Ventricular septum: 1.22 cm Posterior wall: 1.23 cm Left ventricle diastole: 5.3 cm Aortic anulus: 2.1 cm Inferior vena cava: 2.6 cm with approximately 50% respiratory variation DOPPLER MEASUREMENTS: Aortic valve velocity: 171 cm/s LVOT velocity: 52.5 cm/s No aortic stenosis. No aortic regurgitation. Mild mitral regurgitation. No mitral stenosis. Mitral E velocity: 141 cm/s Mitral A velocity: 55.1 cm/s Mild desaturation time: 183 ms Moderate tricuspid regurgitation. Estimated right ventricle systolic pressure: 50 mmHg assuming a right pressure of 10 mmHg. MITRAL ANNULAR TISSUE DOPPLER: E prime septal: 6.42 cm/s E prime lateral: 6.53 cm/s DESCRIPTION: Rhythm was sinus with appearance of left bundle branch block pattern. This was a moderately technically difficult echocardiogram. This was a 2D, M-mode, color flow Doppler and pulse wave Doppler examination and included mitral annular tissue Doppler. CONCLUSIONS: 1. Very mild concentric left ventricle hypertrophy. Paradoxical septal motion with resultant mild reduction of overall left ventricle (LV) systolic function. Left ventricular ejection fraction (LVEF) 45% - 50% by visual assessment. Grade 2 LV diastolic dysfunction (pseudonormal LV filling pattern). 2. Well seated and normally functioning transaortic valve replacement (TAVR). No aortic stenosis or regurgitation. 3. Suggestive of moderate elevation of estimated right ventricle systolic pressure. Moderate tricuspid regurgitation. Normal right ventricle size and systolic function. Dilated inferior vena cava. 4. Bilateral pleural effusions. 5. Tiny pericardial effusion. 6. Mild mitral annular calcification. Mild mitral regurgitation. No mitral stenosis. DD: Rafi Prasad MD [facility] 05/27/18 1721 DT: AML 05/28/18 0800 DS: ANTDA 05/28/18 1343 <Electronically signed by Rafi Prasad MD> 05/28/18 1343 DVT prophylaxis ordered?: YES ASSESSMENT AND PLAN: Patient is an 82 year old male with recent TAVR procedure for aortic stenosis, history of diastolic CHF, atrial fibrillation, hypothyroidism, and diabetes mellitus type II who presented to the [facility] ER with complaint of shortness of breath which has progressed since his discharge from [facility] on Tuesday05/22/2018. Patient had received an echocardiogram in the ED which was read by the cone examiner product assurance engineer and demonstrated no abnormalities with the aortic valve. PROBLEMS: 1. Diastolic Congestive Heart Failure Decompensated -Patient has a history of diastolic heart failure. His diuretics were recently increased however, he continued to develop shortness of breath over the past week. -Patient currently receiving IV lasix 60mg Q8H -Monitor BMP with ongoing dieresis -Strict I's&O's with 1800cc fluid restriction -Echocardiogram performed in ED. Dr. Prasad reviewed. Aortic valve is within normal limits. Suggests diaeresis. Report above. -Patient had an elevated creatinine likely secondary to his volume overload will continue to monitor Cr for resolution with ongoing dieresis. His creatinine appears to be coming down -Consider Cardiology consult if patient does not improve with dieresis 2. CKD stage III with Elevated Cr likely secondary to Acute diastolic CHF exacerbation -As stated in above. Patient likely has cardiorenal syndrome secondary to volume overload. -Will trend Cr for resolution -Consider Nephro consult if patient remains volume overloaded 3. Bilateral Pleural Effusion -Patient has a large right sided pleural effusion on the right as well as an effusion on the left likely secondary to his CHF -Will continue to monitor for improvement with lasix treatment 4. Atrial fibrillation -Patient is anticoagulated on Eliquis. Will continue -Currently rate controlled -He refuses to wear front desk monitor 5. Hypertension -Patient was hypertensive at admission. Likely 2/2 volume overload. He was gi najma PRN IV hydralazine. -Currently his HTN is undercontrol. Continue Metoprolol 12.5 BID 6. Diabetes mellitus type 2 -Sliding scale coverage 7. Gout -Continue allopurinol 8. DVT prophylaxis -Patient is chronically anticoagulated on eliquis VS, I&O, 24H, Fishbone Vital Signs/I&O Vital Signs Date Time Temp Pulse Resp B/P (MAP) Pulse Ox O2 Delivery O2 Flow Rate FiO2 05/29/18 04:00 2.0 05/29/18 04:00 98.6 84 18 157/90 (112) 97 05/28/18 08:16 95 05/27/18 20:45 Room Air I&O- Last 24 Hours up to 6 AM 05/29/18 06:00 Intake Total 580 ml Output Total 2200 ml Balance -1620 ml Laboratory Data 24H LABS Laboratory Tests 2 05/28/18 12:25: Bedside Glucose (Misc Panel) 81L 05/28/18 13:19: Blood Gas Bicarbonate Standard 25.2, Arterial Blood pH 7.437, Arterial Blood Partial Pressure CO2 37.9, Arterial Blood Partial Pressure O2 98.8, Arterial Blood Total CO2 26.2, Arterial Blood HCO3 25.0, Arterial Blood Base Excess 0.9, Arterial Blood Oxygen Saturation 97.4 05/28/18 18:31: Bedside Glucose (Misc Panel) 95 05/28/18 19:04: Anion Gap 9, Glomerular Filtration Rate 34.2L, Blood Urea Nitrogen 57H, Creatinine 2.00H, Sodium Level 149H, Potassium Level 3.5, Chloride Level 113H, Carbon Dioxide Level 27, Calcium Level 8.8 05/28/18 22:03: Bedside Glucose (Misc Panel) 95 05/29/18 05:17: Anion Gap 7L, Glomerular Filtration Rate 34.6L, Blood Urea Nitrogen 55H, Creatinine 1.98H, Sodium Level 149H, Potassium Level 3.5, Chloride Level 113H, Carbon Dioxide Level 29, Calcium Level 8.7L CBC/BMP Laboratory Tests 05/28/18 19:04 Calcium Level 8.8 05/29/18 05:17 Calcium Level 8.7 L Microbiology Microbiology 05/27/18 Blood Culture - Preliminary, Resulted No growth after 24 hours . All specim... 05/27/18 Blood Culture - Preliminary, Resulted No growth after 24 hours . All specim... 05/27/18 Urine Culture - Final, Complete Klebsiella Oxytoca GME ATTESTATION GME ATTESTATION My faculty preceptor for this patient encounter was physically present during the encounter and was fully available. All aspects of the patient interview, examination, medical decision making process, and medical care plan development were reviewed and approved by the faculty preceptor. The faculty preceptor is aware and concurs with the plan as stated in the body of this note and will att est to such by his/her cosignature. MACI GÓMEZ DO May 29, 2018 09:41
[2018-05-29] MEDS: ACETAMINOPHEN TAB 650MG DOSE (2X325MG) PO PRN (12:51)
[2018-05-29 19:31] LABS: CREATININE FOR GFR 2.2 MG/DL (0.70-1.30); GLOMERULAR FILTRATION RATE 30.7 (>35); POTASSIUM SERUM 3.8 MEQ/L (3.5-5.1)
[2018-05-29] MEDS: ALLOPURINOL 300 MG TAB PO SCH (21:09)
[2018-05-29] MEDS: FAMOTIDINE 20 MG TAB PO SCH (21:09)
[2018-05-30] MEDS: FUROSEMIDE 100 MG/10 ML VIAL (J1940) IV SCH ×3 (01:29→17:18)
[2018-05-30 03:37] VITALS: BP 146/68
[2018-05-30] MEDS: LEVOTHYROXINE 25MCG TABLET (0.025MG) PO SCH (05:08)
[2018-05-30 05:14] LABS: HEMOGLOBIN 9.2 g/dl (13.5-17.5); MEAN CORPUSCULAR HEMOGLOBIN 32.2 pg (27.0-33.0); MEAN CORPUSCULAR HGB CONC 32.9 g/dl (32.0-36.5); MEAN CORPUSCULAR VOLUME 97.9 fl (80.0-96.0); PLATELET COUNT, AUTOMATED 208 10^3/uL (150-450); RED BLOOD COUNT 2.86 10^6/uL (4.30-6.10)
[2018-05-30 05:40] LABS: CALCIUM LEVEL 8.6 MG/DL (8.8-10.2); CREATININE FOR GFR 1.95 MG/DL (0.70-1.30); GLOMERULAR FILTRATION RATE 35.2 (>35); POTASSIUM SERUM 3.4 MEQ/L (3.5-5.1)
[2018-05-30] MEDS: HumaLOG INSULIN (NovoLOG) PER UNIT SC SCH ×4 (07:30→20:32)
[2018-05-30 08:00] VITALS: BP 161/79
[2018-05-30] MEDS: CARVedilol 12.5 MG TAB PO SCH ×2 (08:54→20:29)
[2018-05-30] MEDS: ASPIRIN 81 MG ENTERIC TAB PO SCH (08:54)
[2018-05-30] MEDS: ATORVASTATIN 20 MG TAB PO SCH (08:54)
[2018-05-30] MEDS: SENNA 8.6 MG TAB (SENOKOT) PO SCH (08:54)
[2018-05-30] MEDS: APIXABAN 2.5 MG TAB (ELIQUIS) PO SCH ×2 (08:55→20:29)
[2018-05-30] MEDS ORDERED: LevoFLOXacin 750 MG TABLET PO SCH (09:00)
[2018-05-30 12:00] VITALS: BP 163/90
--- NOTE | 2018-05-30 12:59 | IPNPDOC ---
Date Seen The patient was seen on 05/30/18. Progress Note SUBJECTIVE: Patient was seen and examined this morning. He does have a degree of cognitive decline secondary to his recent stroke. He currently notes improvement in his breathing. He denies chest pain. He denies fever or chills. He denies abdominal pain, nausea, vomiting, or diarrhea. OBJECTIVE PHYSICAL EXAMINATION: VITAL SIGNS: Please see below. GENERAL: Awake, alert, and oriented to person and place. He has a baseline cognitive impair. He appears in no acute distress and is lying in bed. HEENT: Atraumatic, normocephalic. Eyes are non-icteric. Trachea is midline. Mucous membranes are pink and moist. Dentition is poor CARDIOVASCULAR: Normal S1, S2. Distant heart sounds. Regular rate. Irregularly irregular rhythm. No clicks, rubs, or murmurs RESPIRATORY: Slightly diminished bilaterally more so on the right lower compared to the left. Clear to auscultation. No wheezes, rhonci, or rales ABDOMINAL: Soft, nondistended. Nontender to palpation throughout out. Positive bowel sounds EXTREMITIES: Continues to have 2mm pitting edema in bilateral lower extremities. Full and equal pulses in bilateral upper and lower extremities NEUROLOGICAL: No focal neurological deficits. Baseline cognitive impairment PSYCHOLOGICAL: Mood and affect appear appropriate LABORATORY DATA, IMAGING STUDIES, MICROBIOLOGY: Please see below. Echocardiogram: DATE OF STUDY: 05/27/2018 REFERRING PHYSICIAN: Rafi Garza MD INDICATION: Heart failure, unspecified. HEIGHT: 177 cm. WEIGHT: 91 kg. 2D MEASUREMENTS: Left atrium: 4.0 cm Ventricular septum: 1.22 cm Posterior wall: 1.23 cm Left ventricle diastole: 5.3 cm Aortic anulus: 2.1 cm Inferior vena cava: 2.6 cm with approximately 50% respiratory variation DOPPLER MEASUREMENTS: Aortic valve velocity: 171 cm/s LVOT velocity: 52.5 cm/s No aortic stenosis. No aortic regurgitation. Mild mitral regurgitation. No mitral stenosis. Mitral E velocity: 141 cm/s Mitral A velocity: 55.1 cm/s Mild desaturation time: 183 ms Moderate tricuspid regurgitation. Estimated right ventricle systolic pressure: 50 mmHg assuming a right pressure of 10 mmHg. MITRAL ANNULAR TISSUE DOPPLER: E prime septal: 6.42 cm/s E prime lateral: 6.53 cm/s DESCRIPTION: Rhythm was sinus with appearance of left bundle branch block pattern. This was a moderately technically difficult echocardiogram. This was a 2D, M-mode, color flow Doppler and pulse wave Doppler examination and included mitral annular tissue Doppler. CONCLUSIONS: 1. Very mild concentric left ventricle hypertrophy. Paradoxical septal motion with resultant mild reduction of overall left ventricle (LV) systolic function. Left ventricular ejection fraction (LVEF) 45% - 50% by visual assessment. Grade 2 LV diastolic dysfunction (pseudonormal LV filling pattern). 2. Well seated and normally functioning transaortic valve replacement (TAVR). No aortic stenosis or regurgitation. 3. Suggestive of moderate elevation of estimated right ventricle systolic pressure. Moderate tricuspid regurgitation. Normal right ventricle size and systolic function. Dilated inferior vena cava. 4. Bilateral pleural effusions. 5. Tiny pericardial effusion. 6. Mild mitral annular calcification. Mild mitral regurgitation. No mitral stenosis. DD: Rafi Prasad MD [facility] 05/27/18 1721 DT: AML 05/28/18 0800 DS: JACKSON 05/28/18 1343 <Electronically signed by Rafi Prasad MD> 05/28/18 1343 DVT prophylaxis ordered?: YES ASSESSMENT AND PLAN: Patient is an 82 year old male with recent TAVR procedure for aortic stenosis, history of diastolic CHF, atrial fibrillation, hypothyroidism, and diabetes mellitus type II who presented to the [facility] ER with complaint of shortness of breath which has progressed since his discharge [facility] on Tuesday05/22/2018. Patient had received an echocardiogram in the ED which was read by the extermination inspector fire patrol and demonstrated no abnormalities with the aortic valve. PROBLEMS: 1. Diastolic Congestive Heart Failure Decompensated -Patient has a history of diastolic heart failure. His diuretics were recently increased however, he continued to develop shortness of breath over the past week. -Will continue IV lasix 60 mg q8h as patient continues to dieresis -Monitor BMP with ongoing dieresis -Strict I's&O's with 1800cc fluid restriction -Echocardiogram performed in ED. Dr. Prasad reviewed. Aortic valve is within normal limits. Suggests diaeresis. Report above. -Patient had an elevated creatinine likely secondary to his volume overload will continue to monitor Cr for resolution with ongoing dieresis. His creatinine appears to be coming down 2. CKD stage III with Elevated Cr likely secondary to Acute diastolic CHF exacerbation Elevated Cr likely secondary to Acute diastolic CHF exacerbation -As stated in above. Patient likely has cardiorenal syndrome secondary to volume overload. -Will trend Cr for resolution -CARLOS appears to be resolving with dieresis 3. Bilateral Pleural Effusion -Patient has a large right sided pleural effusion on the right as well as an effusion on the left likely secondary to his CHF -Will continue to monitor for improvement with lasix treatment 4. Atrial fibrillation -Patient is anticoagulated on Eliquis. Will continue -Currently rate controlled -He refuses to wear surveillance monitor 5. Hypertension -Patient was hypertensive at admission. Likely 2/2 volume overload. He was given PRN IV hydralazine. -Currently his HTN is under control. Continue Metoprolol 12.5 BID 6. Diabetes mellitus type 2 -Sliding scale coverage 7. Gout -Continue allopurinol 8. DVT prophylaxis -Patient is chronically anticoagulated on eliquis VS, I&O, 24H, Fishbone Vital Signs/I&O Vital Signs Date Time Temp Pulse Resp B/P (MAP) Pulse Ox O2 Delivery O2 Flow Rate FiO2 05/30/18 12:00 98.0 79 20 163/90 (114) 96 2.0 05/28/18 08:16 95 05/27/18 20:45 Room Air I&O- Last 24 Hours up to 6 AM 05/30/18 06:00 Intake Total 1560 ml Output Total 1275 ml Balance 285 ml Laboratory Data 24H LABS Laboratory Tests 2 05/29/18 16:32: Bedside Glucose (Misc Panel) 131H 05/29/18 19:05: Anion Gap 8, Glomerular Filtration Rate 30.7L, Blood Urea Nitrogen 57H, Creatinine 2.20H, Sodium Level 150H, Potassium Level 3.8, Chloride Level 112H, Carbon Dioxide Level 30, Calcium Level 9.0 05/29/18 21:05: Bedside Glucose (Misc Panel) 124H 05/30/18 04:53: Anion Gap 8, Glomerular Filtration Rate 35.2, Blood Urea Nitrogen 59H, Creatinine 1.95H, Sodium Level 150H, Potassium Level 3.4L, Chloride Level 113H, Carbon Dioxide Level 29, Calcium Level 8.6L, Nucleated Red Blood Cells % (auto) 0.0 05/30/18 12:16: Bedside Glucose (Misc Panel) 164H CBC/BMP Laboratory Tests 05/29/18 19:05 Calcium Level 9.0 05/30/18 04:53 Calcium Level 8.6 L, Red Blood Count 2.86 L, Mean Corpuscular Volume 97.9 H, Mean Corpuscular Hemoglobin 32.2, Mean Corpuscular Hemoglobin Concent 32.9, Red Cell Distribution Width 15.1 H Microbiology Microbiology 05/27/18 Blood Culture - Preliminary, Resulted No Growth after 48 hours. All Specime... 05/27/18 Blood Culture - Preliminary, Resulted No Growth after 48 hours. All Specime... 05/27/18 Urine Culture - Final, Complete Klebsiella Oxytoca GME ATTESTATION GME ATTESTATION My faculty preceptor for this patient encounter was physically present during the encounter and was fully available. All aspects of the patient interview, examination, medical decision making process, and medical care plan development were reviewed and approved by the faculty preceptor. The faculty preceptor is aware and concurs with the plan as stated in the body of this note and will attest to such by his/her cosignature. ATTENDING NOTE I, Luis Doty, have both independently examined this patient as well as revie wed the documentation. I have discussed in detail with the resident the findings and plan of treatment as documented in the residents documentation. I will continue to follow the patient and offer further guidance to the patients care as necessary during this hospital stay. MACI GÓMEZ DO May 30, 2018 12:59 LUIS DOTY MD May 30, 2018 20:43
[2018-05-30 16:00] VITALS: BP 135/94
[2018-05-30 19:40] LABS: CALCIUM LEVEL 8.8 MG/DL (8.8-10.2); CREATININE FOR GFR 2.05 MG/DL (0.70-1.30); GLOMERULAR FILTRATION RATE 33.3 (>35); POTASSIUM SERUM 3.5 MEQ/L (3.5-5.1)
[2018-05-30 20:00] VITALS: BP 148/98
[2018-05-30] MEDS: ALLOPURINOL 300 MG TAB PO SCH (20:29)
[2018-05-30] MEDS: FAMOTIDINE 20 MG TAB PO SCH (20:29)
[2018-05-30 23:59] VITALS: BP 160/98
[2018-05-31] MEDS: FUROSEMIDE 100 MG/10 ML VIAL (J1940) IV SCH ×3 (01:25→17:17)
[2018-05-31 04:00] VITALS: BP 152/78
[2018-05-31] MEDS: LEVOTHYROXINE 25MCG TABLET (0.025MG) PO SCH (05:44)
[2018-05-31] MEDS ORDERED: LevoFLOXacin 500 MG TABLET PO SCH (06:00)
[2018-05-31 06:49] LABS: HEMATOCRIT 28.3 % (42.0-52.0); HEMOGLOBIN 9.2 g/dl (13.5-17.5); MEAN CORPUSCULAR HEMOGLOBIN 32.1 pg (27.0-33.0); MEAN CORPUSCULAR HGB CONC 32.5 g/dl (32.0-36.5); MEAN CORPUSCULAR VOLUME 98.6 fl (80.0-96.0); PLATELET COUNT, AUTOMATED 185 10^3/uL (150-450); RED BLOOD COUNT 2.87 10^6/uL (4.30-6.10); WHITE BLOOD COUNT 9.3 10^3/uL (4.0-10.0)
[2018-05-31 07:07] LABS: CALCIUM LEVEL 8.4 MG/DL (8.8-10.2); CREATININE FOR GFR 1.98 MG/DL (0.70-1.30); GLOMERULAR FILTRATION RATE 34.6 (>35); POTASSIUM SERUM 3.2 MEQ/L (3.5-5.1)
[2018-05-31] MEDS: HumaLOG INSULIN (NovoLOG) PER UNIT SC SCH ×4 (07:30→20:55)
[2018-05-31 08:00] VITALS: BP 184/86
[2018-05-31] MEDS ORDERED: POTASSIUM CHLORIDE 10 MEQ SR TABLET PO ONE (08:00)
[2018-05-31] MEDS: CARVedilol 12.5 MG TAB PO SCH ×2 (08:13→20:56)
[2018-05-31] MEDS: ASPIRIN 81 MG ENTERIC TAB PO SCH (08:14)
[2018-05-31] MEDS: ATORVASTATIN 20 MG TAB PO SCH (08:15)
[2018-05-31] MEDS: APIXABAN 2.5 MG TAB (ELIQUIS) PO SCH ×2 (08:15→20:55)
[2018-05-31] MEDS: SENNA 8.6 MG TAB (SENOKOT) PO SCH (08:15)
--- NOTE | 2018-05-31 09:57 | IPNPDOC ---
Date Seen The patient was seen on 05/31/18. Progress Note SUBJECTIVE: Patient was seen and examined this morning. He currently states that he is feeling better. He has improvement in his breathing. He appears less confused which was reported by nursing and his family as well. Previously the family had stated that his cognition was at his baseline. The patient did receive antibiotics for a UTI yesterday. They were discontinued as it was believed that this was his baseline. The patient currently has no new complaints. OBJECTIVE PHYSICAL EXAMINATION: VITAL SIGNS: Please see below. GENERAL: Awake, alert, and oriented to person and place. He has a baseline cognitive impair although he appears less confused and more conversive this morning. He appears in no acute distress and is sitting comfortably on edge of bed. HEENT: Atraumatic, normocephalic. Eyes are non-icteric. Trachea is midline. Mucous membranes are pink and moist. Dentition is poor CARDIOVASCULAR: Normal S1, S2. Distant heart sounds. Regular rate. Irregularly irregular rhythm. No clicks, rubs, or murmurs RESPIRATORY: Slightly diminished bilaterally more so on the right lower compared to the left. Clear to auscultation. No wheezes, rhonci, or rales. Slight crackles auscultated bilaterally ABDOMINAL: Soft, nondistended. Nontender to palpation throughout out. Positive bowel sounds EXTREMITIES: Continues to have 1-2mm pitting edema in bilateral lower extremities with significant improvement from admission. Full and equal pulses in bilateral upper and lower extremities NEUROLOGICAL: No focal neurological deficits. Baseline cognitive impairment PSYCHOLOGICAL: Mood and affect appear appropriate LABORATORY DATA, IMAGING STUDIES, MICROBIOLOGY: Please see below. Echocardiogram: DATE OF STUDY: 05/27/2018 REFERRING PHYSICIAN: Rafi Garza MD INDICATION: Heart failure, unspecified. HEIGHT: 177 cm. WEIGHT: 91 kg. 2D MEASUREMENTS: Left atrium: 4.0 cm Ventricular septum: 1.22 cm Posterior wall: 1.23 cm Left ventricle diastole: 5.3 cm Aortic anulus: 2.1 cm Inferior vena cava: 2.6 cm with approximately 50% respiratory variation DOPPLER MEASUREMENTS: Aortic valve velocity: 171 cm/s LVOT velocity: 52.5 cm/s No aortic stenosis. No aortic regurgitation. Mild mitral regurgitation. No mitral stenosis. Mitral E velocity: 141 cm/s Mitral A velocity: 55.1 cm/s Mild desaturation time: 183 ms Moderate tricuspid regurgitation. Estimated right ventricle systolic pressure: 50 mmHg assuming a right pressure of 10 mmHg. MITRAL ANNULAR TISSUE DOPPLER: E prime septal: 6.42 cm/s E prime lateral: 6.53 cm/s DESCRIPTION: Rhythm was sinus with appearance of left bundle branch block pattern. This was a moderately technically difficult echocardiogram. This was a 2D, M-mode, color flow Doppler and pulse wave Doppler examination and included mitral annular tissue Doppler. CONCLUSIONS: 1. Very mild concentric left ventricle hypertrophy. Paradoxical septal motion with resultant mild reduction of overall left ventricle (LV) systolic function. Left ventricular ejection fraction (LVEF) 45% - 50% by visual assessment. Grade 2 LV diastolic dysfunction (pseudonormal LV filling pattern). 2. Well seated and normally functioning transaortic valve replacement (TAVR). No aortic stenosis or regurgitation. 3. Suggestive of moderate elevation of estimated right ventricle systolic pressure. Moderate tricuspid regurgitation. Normal right ventricle size and systolic function. Dilated inferior vena cava. 4. Bilateral pleural effusions. 5. Tiny pericardial effusion. 6. Mild mitral annular calcification. Mild mitral regurgitation. No mitral stenosis. DD: Rafi Prasad MD [facility] 05/27/18 1721 DT: AML 05/28/18 0800 DS: JACKSON 05/28/18 1343 <Electronically signed by Rafi Prasad MD> 05/28/18 1343 DVT prophylaxis ordered?: YES ASSESSMENT AND PLAN: Patient is an 82 year old male with recent TAVR procedure for aortic stenosis, history of diastolic CHF, atrial fibrillation, hypothyroidism, and diabetes mellitus type II who presented to the [facility] ER with complaint of shortness of breath which has progressed since his discharge from [facility] on Tuesday05/22/2018. Patient had received an echocardiogram in the ED which was read by the numerical control machine tool operator fishing hand and demonstrated no abnormalities with the aortic valve. PROBLEMS: 1. Diastolic Congestive Heart Failure Decompensated -Patient has a history of diastolic heart failure. His diuretics were recently increased however, he continued to develop shortness of breath over the past week. -Will continue IV lasix 60 mg q8h as patient continues to dieresis -Monitor BMP with ongoing dieresis -Strict I's&O's with 1800cc fluid restriction -Echocardiogram performed in ED. Dr. Prasad reviewed. Aortic valve is within normal limits. Suggests diaeresis. Report above. -Patient had an elevated creatinine likely secondary to his volume overload will continue to monitor Cr for resolution with ongoing dieresis. His creatinine is continuing to come down to his baseline 2. Urinary Tract Infection -The patients urinalysis and culture at admission came back positive for UTI. This was originally felt to be asymptomatic bacteruria as he had no urinary complaints and the CFU/ml was only 40,000. The patient did receive a dose of Levofloxacin. Today his cognition appears improved. Unclear whether this is due from treating the UTI or improvement in the patients health status as a whole. -Given patients improvement in clinical status after treatment will give him his second dose of Levaquin tomorrow completing treatment 3. CKD stage III with Elevated Cr likely secondary to Acute diastolic CHF exacerbation -As stated in above. Patient likely has cardiorenal syndrome secondary to volume overload. -Will trend Cr for resolution -Cr appears to be coming down to his baseline. Will continue to monitor. 4. Bilateral Pleural Effusion -Patient has a large right sided pleural effusion on the right as well as an effusion on the left likely secondary to his CHF -Will continue to monitor for improvement with lasix treatment 5. Atrial fibrillation -Patient is anticoagulated on Eliquis. Will continue -Currently rate controlled -He refuses to wear surgical asst 6. Hypertension -Patient was hypertensive at admission. Likely 2/2 volume overload. He was given PRN IV hydralazine. -Currently his HTN is under control. Continue Metoprolol 12.5 BID 6. Diabetes mellitus type 2 -Sliding scale coverage 7. Gout -Continue allopurinol 8. DVT prophylaxis -Patient is chronically anticoagulated on eliquis VS, I&O, 24H, Fishbone Vital Signs/I&O Vital Signs Date Time Temp Pulse Resp B/P (MAP) Pulse Ox O2 Delivery O2 Flow Rate FiO2 05/31/18 08:13 80 184/86 05/31/18 08:00 2.0 05/31/18 08:00 97.9 22 100 05/28/18 08:16 95 05/27/18 20:45 Room Air I&O- Last 24 Hours up to 6 AM 05/31/18 05:59 Intake Total 1200 ml Output Total 2400 ml Balance -1200 ml Laboratory Data 24H LABS Laboratory Tests 2 05/30/18 12:16: Bedside Glucose (Misc Panel) 164H 05/30/18 17:09: Bedside Glucose (Misc Panel) 127H 05/30/18 18:56: Anion Gap 6L, Glomerular Filtration Rate 33.3L, Blood Urea Nitrogen 57H, Creatinine 2.05H, Sodium Level 148H, Potassium Level 3.5, Chloride Level 111H, Carbon Dioxide Level 31, Calcium Level 8.8 05/30/18 20:31: Bedside Glucose (Misc Panel) 97 05/31/18 06:25: Nucleated Red Blood Cells % (auto) 0.0, Anion Gap 6L, Glomerular Filtration Rate 34.6L, Blood Urea Nitrogen 53H, Creatinine 1.98H, Sodium Level 148H, Potassium Level 3.2L, Chloride Level 111H, Carbon Dioxide Level 31, Calcium Level 8.4L CBC/BMP Laboratory Tests 05/30/18 18:56 Calcium Level 8.8 05/31/18 06:25 Calcium Level 8.4 L, Red Blood Count 2.87 L, Mean Corpuscular Volume 98.6 H, Mean Corpuscular Hemoglobin 32.1, Mean Corpuscular Hemoglobin Concent 32.5, Red Cell Distribution Width 14.9 H Microbiology Microbiology 05/27/18 Blood Culture - Preliminary, Resulted No Growth after 72 hours. All specime... 05/27/18 Blood Culture - Preliminary, Resulted No Growth after 72 hours. All specime... 05/27/18 Urine Culture - Final, Complete Klebsiella Oxytoca GME ATTESTATION GME ATTESTATION My faculty preceptor for this patient encounter was physically present during the encounter and was fully available. All aspects of the patient interview, examination, medical decision making process, and medical care plan development were reviewed and approved by the faculty preceptor. The faculty preceptor is aware and concurs with the plan as stated in the body of this note and will attest to such by his/her cosignature. ATTENDING NOTE I, Luis Doty, have both independently examined this patient as well as reviewed the documentation. I have discussed in detail with the resident the findings and plan of treatment as documented in the residents documentation. I will continue to follow the patient and offer further guidance to the patients care as necessary during this hospital stay. MACI GÓMEZ DO May 31, 2018 09:57 LUIS DOTY MD May 31, 2018 18:51
[2018-05-31 12:00] VITALS: BP 150/68
[2018-05-31] MEDS ORDERED: SLF 3 ML SYR IV PRN (13:00)
[2018-05-31] MEDS: SLF 3 ML SYR IV SCH ×2 (15:22→20:56)
[2018-05-31 16:00] VITALS: BP 158/70
[2018-05-31 19:32] LABS: CALCIUM LEVEL 8.4 MG/DL (8.8-10.2); CREATININE FOR GFR 2.15 MG/DL (0.70-1.30); GLOMERULAR FILTRATION RATE 31.5 (>35); POTASSIUM SERUM 3.8 MEQ/L (3.5-5.1)
[2018-05-31 20:00] VITALS: BP 163/86
[2018-05-31] MEDS: ALLOPURINOL 300 MG TAB PO SCH (20:55)
[2018-05-31] MEDS: FAMOTIDINE 20 MG TAB PO SCH (20:55)
[2018-06-01] VITALS: BP 162/91
[2018-06-01] MEDS: FUROSEMIDE 100 MG/10 ML VIAL (J1940) IV SCH ×3 (01:21→17:39)
[2018-06-01 04:00] VITALS: BP 153/79
[2018-06-01 05:26] LABS: HEMATOCRIT 29.1 % (42.0-52.0); HEMOGLOBIN 9.4 g/dl (13.5-17.5); MEAN CORPUSCULAR HEMOGLOBIN 31.5 pg (27.0-33.0); MEAN CORPUSCULAR HGB CONC 32.3 g/dl (32.0-36.5); MEAN CORPUSCULAR VOLUME 97.7 fl (80.0-96.0); PLATELET COUNT, AUTOMATED 184 10^3/uL (150-450); RED BLOOD COUNT 2.98 10^6/uL (4.30-6.10); WHITE BLOOD COUNT 9.4 10^3/uL (4.0-10.0)
[2018-06-01 05:46] LABS: CALCIUM LEVEL 8.2 MG/DL (8.8-10.2); CREATININE FOR GFR 2.02 MG/DL (0.70-1.30); GLOMERULAR FILTRATION RATE 33.8 (>35); POTASSIUM SERUM 3.3 MEQ/L (3.5-5.1)
[2018-06-01] MEDS: LEVOTHYROXINE 25MCG TABLET (0.025MG) PO SCH (06:13)
[2018-06-01] MEDS: SLF 3 ML SYR IV SCH ×3 (06:13→20:14)
[2018-06-01] MEDS ORDERED: POTASSIUM CHLORIDE 10 MEQ SR TABLET PO ONE (07:00)
[2018-06-01] MEDS: HumaLOG INSULIN (NovoLOG) PER UNIT SC SCH ×4 (07:30→20:09)
[2018-06-01 08:00] VITALS: BP 161/95
[2018-06-01] MEDS: ASPIRIN 81 MG ENTERIC TAB PO SCH (09:25)
[2018-06-01] MEDS: CARVedilol 12.5 MG TAB PO SCH ×3 (09:25→20:14)
[2018-06-01] MEDS: APIXABAN 2.5 MG TAB (ELIQUIS) PO SCH ×2 (09:25→20:14)
[2018-06-01] MEDS: ATORVASTATIN 20 MG TAB PO SCH (09:26)
[2018-06-01] MEDS: LevoFLOXacin 750 MG TABLET PO SCH (09:26)
[2018-06-01] MEDS: SENNA 8.6 MG TAB (SENOKOT) PO SCH (09:26)
--- NOTE | 2018-06-01 09:56 | IPNPDOC ---
Date Seen The patient was seen on 06/01/18. Progress Note SUBJECTIVE: Patient was seen and examined this morning. He currently states that his breathing has significantly improved. He has had his estrada catheter discontinued. He denies any chest pain. He denies nausea, vomiting, or diarrhea. There have been no adverse events reported overnight. OBJECTIVE PHYSICAL EXAMINATION: VITAL SIGNS: Please see below. GENERAL: Awake, alert, and oriented. He appears in no acute distress. He is conversive. He does not appear confused this morning. He answers questions appropriately. HEENT: Atraumatic, normocephalic. Eyes are non-icteric. Trachea is midline. M ucous membranes are pink and moist. Dentition is poor CARDIOVASCULAR: Normal S1, S2. Distant heart sounds. Regular rate. Irregularly irregular rhythm. No clicks, rubs, or murmurs RESPIRATORY: Slightly diminished bilaterally more so on the right lower compared to the left. Clear to auscultation. No wheezes, rhonci, or rales. Slight crackles auscultated bilaterally with improvement from previous examination ABDOMINAL: Soft, nondistended. Nontender to palpation throughout out. Positive bowel sounds EXTREMITIES: Continues to have 1-2mm pitting edema in bilateral lower extremities with significant improvement from admission. Full and equal pulses in bilateral upper and lower extremities NEUROLOGICAL: No focal neurological deficits. Baseline cognitive impairment PSYCHOLOGICAL: Mood and affect appear appropriate LABORATORY DATA, IMAGING STUDIES, MICROBIOLOGY: Please see below. Echocardiogram: DATE OF STUDY: 05/27/2018 REFERRING PHYSICIAN: Rafi Garza MD INDICATION: Heart failure, unspecified. HEIGHT: 177 cm. WEIGHT: 91 kg. 2D MEASUREMENTS: Left atrium: 4.0 cm Ventricular septum: 1.22 cm Posterior wall: 1.23 cm Left ventricle diastole: 5.3 cm Aortic anulus: 2.1 cm Inferior vena cava: 2.6 cm with approximately 50% respiratory variation DOPPLER MEASUREMENTS: Aortic valve velocity: 171 cm/s LVOT velocity: 52.5 cm/s No aortic stenosis. No aortic regurgitation. Mild mitral regurgitation. No mitral stenosis. Mitral E velocity: 141 cm/s Mitral A velocity: 55.1 cm/s Mild desaturation time: 183 ms Moderate tricuspid regurgitation. Estimated right ventricle systolic pressure: 50 mmHg assuming a right pressure of 10 mmHg. MITRAL ANNULAR TISSUE DOPPLER: E prime septal: 6.42 cm/s E prime lateral: 6.53 cm/s DESCRIPTION: Rhythm was sinus with appearance of left bundle branch block pattern. This was a moderately technically difficult echocardiogram. This was a 2D, M-mode, color flow Doppler and pulse wave Doppler examination and included mitral annular tissue Doppler. CONCLUSIONS: 1. Very mild concentric left ventricle hypertrophy. Paradoxical septal motion with resultant mild reduction of overall left ventricle (LV) systolic function. Left ventricular ejection fraction (LVEF) 45% - 50% by visual assessment. Grade 2 LV diastolic dysfunction (pseudonormal LV filling pattern). 2. Well seated and normally functioning transaortic valve replacement (TAVR). No aortic stenosis or regurgitation. 3. Suggestive of moderate elevation of estimated right ventricle systolic pressure. Moderate tricuspid regurgitation. Normal right ventricle size and systolic function. Dilated inferior vena cava. 4. Bilateral pleural effusions. 5. Tiny pericardial effusion. 6. Mild mitral annular calcification. Mild mitral regurgitation. No mitral stenosis. DD: Rafi Prasad MD [facility] 05/27/18 1721 DT: AML 05/28/18 0800 DS: ANTDA 05/28/18 1343 <Electronically signed by Rafi Prasad MD> 05/28/18 1343 DVT prophylaxis ordered?: YES ASSESSMENT AND PLAN: Patient is an 82 year old male with recent TAVR procedure for aortic stenosis, history of diastolic CHF, atrial fibrillation, hypothyroidism, and diabetes mellitus type II who presented to the [facility] ER with complaint of shortness of breath which has progressed since his discharge from [facility] on Tuesday05/22/2018. Patient had received an echocardiogram in the ED which was read by the air conditioning mechanic chemical operations and training and demonstrated no abnormalities with the aortic valve. PROBLEMS: 1. Diastolic Congestive Heart Failure Decompensated -Patient has a history of diastolic heart failure. His diuretics were recently increased however, he continued to develop shortness of breath over the past week. -Will continue IV lasix 60 mg q8h as patient continues to dieresis. Will likely change to oral Torsemide tomorrow. -Monitor BMP with ongoing dieresis -Strict I's&O's with 1800cc fluid restriction -Echocardiogram performed in ED. Dr. Prasad reviewed. Aortic valve is within normal limits. Suggests diaeresis. Report above. -Patient had an elevated creatinine likely secondary to his volume overload will continue to monitor Cr for resolution with ongoing dieresis. His creatinine is continuing to come down to his baseline 2. Urinary Tract Infection -The patients urinalysis and culture at admission came back positive for UTI. This was originally felt to be asymptomatic bacteruria as he had no urinary complaints and the CFU/ml was only 40,000. The patient did receive a dose of Levofloxacin. Today his cognition appears improved. Unclear whether this is due from treating the UTI or improvement in the patients health status as a whole. -Patient was given 750 mg PO levaquin for treatment of his UTI as his cognition seems to have improved with his previous dose. This dose should cover him for 48hours. 3. CKD stage III with Elevated Cr likely secondary to Acute diastolic CHF exacerbation -As stated in above. Patient likely has cardiorenal syndrome secondary to volume overload. -Will trend Cr for resolution -Cr stable. Will continue to monitor. 4. Bilateral Pleural Effusion -Patient has a large right sided pleural effusion on the right as well as an effusion on the left likely secondary to his CHF -Will continue to monitor for improvement with lasix treatment 5. Atrial fibrillation -Patient is anticoagulated on Eliquis. Will continue -Currently rate controlled -He refuses to wear monitoring engineer 6. Hypertension -Patient was hypertensive at admission. Likely 2/2 volume overload. He was given PRN IV hydralazine. -Currently his HTN is under control. Continue Metoprolol 12.5 BID 6. Diabetes mellitus type 2 -Sliding scale coverage 7. Gout -Continue allopurinol 8. DVT prophylaxis -Patient is chronically anticoagulated on eliquis VS, I&O, 24H, Fishbone Vital Signs/I&O Vital Signs Date Time Temp Pulse Resp B/P (MAP) Pulse Ox O2 Delivery O2 Flow Rate FiO2 06/01/18 09:25 86 161/95 06/01/18 08:00 97.9 20 94 06/01/18 04:00 1.0 05/28/18 08:16 95 05/27/18 20:45 Room Air I&O- Last 24 Hours up to 6 AM 06/01/18 06:00 Intake Total 1920 ml Output Total 1200 ml Balance 720 ml Laboratory Data 24H LABS Laboratory Tests 2 05/31/18 11:45: Bedside Glucose (Misc Panel) 169H 05/31/18 16:41: Bedside Glucose (Misc Panel) 67L 05/31/18 18:55: Anion Gap 6L, Glomerular Filtration Rate 31.5L, Blood Urea Nitrogen 56H, Creatinine 2.15H, Sodium Level 147H, Potassium Level 3.8, Chloride Level 110H, Carbon Dioxide Level 31, Calcium Level 8.4L 05/31/18 20:51: Bedside Glucose (Misc Panel) 138H 06/01/18 04:54: Nucleated Red Blood Cells % (auto) 0.0, Anion Gap 8, Glomerular Filtration Rate 33.8L, Blood Urea Nitrogen 54H, Creatinine 2.02H, Sodium Level 149H, Potassium Level 3.3L, Chloride Level 111H, Carbon Dioxide Level 30, Calcium Level 8.2L CBC/BMP Laboratory Tests 05/31/18 18:55 Calcium Level 8.4 L 06/01/18 04:54 Calcium Level 8.2 L, Red Blood Count 2.98 L, Mean Corpuscular Volume 97.7 H, Mean Corpuscular Hemoglobin 31.5, Mean Corpuscular Hemoglobin Concent 32.3, Red Cell Distribution Width 15.2 H Microbiology Microbiology 05/27/18 Blood Culture - Preliminary, Resulted No Growth after 72 hours. All specime... 05/27/18 Blood Culture - Preliminary, Resulted No Growth after 72 hours. All specime... 05/27/18 Urine Culture - Final, Complete Klebsiella Oxytoca GME ATTESTATION GME ATTESTATION My faculty preceptor for this patient encounter was physically present during the encounter and was fully available. All aspects of the patient interview, exa mination, medical decision making process, and medical care plan development were reviewed and approved by the faculty preceptor. The faculty preceptor is aware and concurs with the plan as stated in the body of this note and will attest to such by his/her cosignature. ATTENDING NOTE I, Luis Doty, have both independently examined this patient as well as reviewed the documentation. I have discussed in detail with the resident the findings and plan of treatment as documented in the residents documentation. I will continue to follow the patient and offer further guidance to the patients care as necessary during this hospital stay. MACI GÓMEZ DO Jun 01, 2018 09:56 LUIS DOTY MD Jun 01, 2018 18:56
[2018-06-01 12:00] VITALS: BP 125/81
[2018-06-01 16:00] VITALS: BP 158/86
[2018-06-01 20:00] VITALS: BP 139/78
[2018-06-01] MEDS: FAMOTIDINE 20 MG TAB PO SCH (20:14)
[2018-06-01] MEDS: ALLOPURINOL 300 MG TAB PO SCH (20:14)
[2018-06-02] VITALS: BP 160/80
[2018-06-02] MEDS ORDERED: SODIUM CHLORIDE NASAL 0.65% SPRAY BTL (OCEAN) PRN (01:00)
[2018-06-02] MEDS: FUROSEMIDE 100 MG/10 ML VIAL (J1940) IV SCH (01:49)
[2018-06-02 04:00] VITALS: BP 166/89
[2018-06-02 05:02] LABS: HEMATOCRIT 30.6 % (42.0-52.0); HEMOGLOBIN 9.9 g/dl (13.5-17.5); MEAN CORPUSCULAR HGB CONC 32.4 g/dl (32.0-36.5); PLATELET COUNT, AUTOMATED 180 10^3/uL (150-450); RED BLOOD COUNT 3.09 10^6/uL (4.30-6.10); WHITE BLOOD COUNT 10.6 10^3/uL (4.0-10.0)
[2018-06-02] MEDS: LEVOTHYROXINE 25MCG TABLET (0.025MG) PO SCH (06:42)
[2018-06-02] MEDS: SLF 3 ML SYR IV SCH ×3 (06:43→21:28)
[2018-06-02] MEDS: HumaLOG INSULIN (NovoLOG) PER UNIT SC SCH ×4 (07:30→21:25)
[2018-06-02 07:52] LABS: BASO # 0.1 10^3/uL (0.0-0.2); BASO % 0.5 % (0.0-1.0); EOS # 0.7 10^3/uL (0.0-0.50); EOS % 6.4 % (0.0-3.0); LYMPH # 1.3 10^3/uL (1.5-4.5); LYMPH % 12.2 % (24.0-44.0); MONO # 0.8 10^3/uL (0.0-0.8); MONO % 7.2 % (0.0-5.0); NEUTROPHILS # 7.7 10^3/uL (1.8-7.7); NEUTROPHILS % 73.3 % (36.0-66.0)
[2018-06-02 08:00] VITALS: BP 170/82
[2018-06-02] MEDS ORDERED: POTASSIUM CHLORIDE 10 MEQ SR TABLET PO ONE (08:00)
[2018-06-02 08:32] LABS: CALCIUM LEVEL 7.7 MG/DL (8.8-10.2); CREATININE FOR GFR 2.12 MG/DL (0.70-1.30); MAGNESIUM LEVEL 1.6 MG/DL (1.8-2.4)
[2018-06-02] MEDS: SENNA 8.6 MG TAB (SENOKOT) PO SCH (09:23)
[2018-06-02] MEDS: ATORVASTATIN 20 MG TAB PO SCH (09:23)
[2018-06-02] MEDS: APIXABAN 2.5 MG TAB (ELIQUIS) PO SCH ×2 (09:23→21:27)
[2018-06-02] MEDS: ASPIRIN 81 MG ENTERIC TAB PO SCH (09:23)
[2018-06-02] MEDS: CARVedilol 12.5 MG TAB PO SCH ×2 (09:23→21:26)
[2018-06-02] MEDS: TORSEMIDE 20 MG TAB PO SCH ×2 (09:54→17:32)
[2018-06-02] MEDS ORDERED: MAG SULF 1GM/100ML (MAG RUN) 1 GM in APPROPRIATE DILUENT 1 EA IV ONE (10:00)
[2018-06-02 12:00] VITALS: BP 150/90
--- NOTE | 2018-06-02 13:13 | IPNPDOC ---
Date Seen The patient was seen on 06/02/18. Progress Note SUBJECTIVE: Patient was seen and examined this morning. He appears to be confused this morning. His sitter was discontinued yesterday however, the patient had what is believed to be sundowning and the sitter was added again. He does not complain of shortness of breath and states his breathing is ok. He denies any other complaints. He does have a baseline cognitive impairment and dementia. His son had stated that this is not uncommon for him to become confused at night and into the morning. OBJECTIVE PHYSICAL EXAMINATION: VITAL SIGNS: Please see below. GENERAL: Awake and alert. Oriented to person. He appears in no acute distress. He is sitting on the edge of the bed asking for his son. He appears confused at times. HEENT: Atraumatic normocephalic. Eyes are non-icteric. Trachea is midline. Mucous membranes are pink and moist. CARDIOVASCULAR: Irregularly irregular rhythm. Regular rate. No clicks, rubs, or murmurs RESPIRATORY: Slightly diminished breath sounds bilaterally. Good respiratory effort. No wheezes, rhonci, or rales. No crackles ABDOMINAL: Soft, nondistended. Nontender to palpation throughout. No rebound tenderness or guarding. Positive bowel sounds EXTREMITIES: 2mm pitting edema in bilateral lower extremities. Pulses are full and equal in bilateral upper and lower extremities NEUROLOGICAL: No focal neurological deficits. Baseline cognitive impairment. Patient appears somewhat confused consistent with owning PSYCHOLOGICAL: Mood and affect appears appropriate LABORATORY DATA, IMAGING STUDIES, MICROBIOLOGY: Please see below. Echocardiogram: DATE OF STUDY: 05/27/2018 REFERRING PHYSICIAN: Rafi Garza MD INDICATION: Heart failure, unspecified. HEIGHT: 177 cm. WEIGHT: 91 kg. 2D MEASUREMENTS: Left atrium: 4.0 cm Ventricular septum: 1.22 cm Posterior wall: 1.23 cm Left ventricle diastole: 5.3 cm Aortic anulus: 2.1 cm Inferior vena cava: 2.6 cm with approximately 50% respiratory variation DOPPLER MEASUREMENTS: Aortic valve velocity: 171 cm/s LVOT velocity: 52.5 cm/s No aortic stenosis. No aortic regurgitation. Mild mitral regurgitation. No mitral stenosis. Mitral E velocity: 141 cm/s Mitral A velocity: 55.1 cm/s Mild desaturation time: 183 ms Moderate tricuspid regurgitation. Estimated right ventricle systolic pressure: 50 mmHg assuming a right pressure of 10 mmHg. MITRAL ANNULAR TISSUE DOPPLER: E prime septal: 6.42 cm/s E prime lateral: 6.53 cm/s DESCRIPTION: Rhythm was sinus with appearance of left bundle branch block pattern. This was a moderately technically difficult echocardiogram. This was a 2D, M-mode, color flow Doppler and pulse wave Doppler examination and included mitral annular tissue Doppler. CONCLUSIONS: 1. Very mild concentric left ventricle hypertrophy. Paradoxical septal motion with resultant mild reduction of overall left ventricle (LV) systolic function. Left ventricular ejection fraction (LVEF) 45% - 50% by visual assessment. Grade 2 LV diastolic dysfunction (pseudonormal LV filling pattern). 2. Well seated and normally functioning transaortic valve replacement (TAVR). No aortic stenosis or regurgitation. 3. Suggestive of moderate elevation of estimated right ventricle systolic pressure. Moderate tricuspid regurgitation. Normal right ventricle size and systolic function. Dilated inferior vena cava. 4. Bilateral pleural effusions. 5. Tiny pericardial effusion. 6. Mild mitral annular calcification. Mild mitral regurgitation. No mitral stenosis. DD: Rafi Prasad MD FAC 05/27/18 1721 DT: AML 05/28/18 0800 DS: ANTDA 05/28/18 1343 <Electronically signed by Rafi Prasad MD> 05/28/18 1343 DVT prophylaxis ordered?: YES ASSESSMENT AND PLAN: This is a -year-old [RACE] [GENDER] with . PROBLEMS: 1. Diastolic Congestive Heart Failure Decompensated -Patient has a history of diastolic heart failure. His diuretics were recently increased however, he continued to develop shortness of breath over the past week. -Patients volume status is improving. Will pack changer to PO Torosemide 40mg BID. -Monitor BMP with ongoing dieresis. Patient will receive MagRun today. -Strict I's&O's with 1500cc fluid restriction -Echocardiogram performed in ED. Dr. Prasad reviewed. Aortic valve is within normal limits. Suggests diaeresis. Report above. -Patient had an elevated creatinine likely secondary to his volume overload will continue to monitor Cr for resolution with ongoing dieresis. His creatinine is continuing to come down to his baseline 2. Urinary Tract Infection -The patients urinalysis and culture at admission came back positive for UTI. This was originally felt to be asymptomatic bacteruria as he had no urinary complaints and the CFU/ml was only 40,000. The patient did receive a dose of Levofloxacin. Today his cognition appears improved. Unclear whether this is due from treating the UTI or improvement in the patients health status as a whole. -Patient was given 750 mg PO levaquin for treatment of his UTI as his cognition seems to have improved with his previous dose. This dose should cover him for 48hours. 3. CKD stage III with Elevated Cr likely secondary to Acute diastolic CHF exacerbation -As stated in above. Patient likely has cardiorenal syndrome secondary to volume overload. -Will trend Cr for resolution -Cr stable. Will continue to monitor. 4. Bilateral Pleural Effusion -Patient has a large right sided pleural effusion on the right as well as an effusion on the left likely secondary to his CHF -Remains stable. He is being transitioned to PO Torosemide today. 5. Atrial fibrillation -Patient is anticoagulated on Eliquis. Will continue -Currently rate controlled -He refuses to wear athletic monitor 6. Hypertension -Patient was hypertensive at admission. Likely 2/2 volume overload. He was given PRN IV hydralazine. -Currently his HTN is under control. Continue Metoprolol 12.5 BID 6. Diabetes mellitus type 2 -Sliding scale coverage 7. Gout -Continue allopurinol 8. DVT prophylaxis -Patient is chronically anticoagulated on eliquis VS, I&O, 24H, Fishbone Vital Signs/I&O Vital Signs Date Time Temp Pulse Resp B/P (MAP) Pulse Ox O2 Delivery O2 Flow Rate FiO2 06/02/18 09:23 86 170/82 06/02/18 08:00 98.0 20 96 06/02/18 04:00 2.0 05/28/18 08:16 95 05/27/18 20:45 Room Air I&O- Last 24 Hours up to 6 AM 06/02/18 06:00 Intake Total 960 ml Output Total 1875 ml Balance -915 ml Laboratory Data 24H LABS Laboratory Tests 2 06/01/18 11:45: Bedside Glucose (Misc Panel) 127H 06/01/18 16:58: Bedside Glucose (Misc Panel) 79L 06/01/18 20:08: Bedside Glucose (Misc Panel) 140H 06/02/18 04:47: Immature Granulocyte % (Auto) 0.4, Neutrophils (%) (Auto) 73.3H, Lymphocytes (%) (Auto) 12.2L, Monocytes (%) (Auto) 7.2H, Eosinophils (%) (Auto) 6.4H, Basophils (%) (Auto) 0.5, Immature Granulocyte # (Auto) 0.0, Neutrophils # (Auto) 7.7, Lymphocytes # (Auto) 1.3L, Monocytes # (Auto) 0.8, Eosinophils # (Auto) 0.7H, Basophils # (Auto) 0.1, Nucleated Red Blood Cells % (auto) 0.0, Platelet Estimate , Anion Gap 8, Glomerular Filtration Rate 32.0L, Blood Urea Nitrogen 53H, Creatinine 2.12H, Sodium Level 147H, Potassium Level 4.0#, Chloride Level 109H, Carbon Dioxide Level 30, Calcium Level 7.7L, Magnesium Level 1.6L CBC/BMP Laboratory Tests 06/02/18 04:47 Red Blood Count 3.09 L, Mean Corpuscular Volume 99.0 H, Mean Corpuscular Hemoglobin 32.0, Mean Corpuscular Hemoglobin Concent 32.4, Red Cell Distribution Width 15.3 H, Calcium Level 7.7 L Microbiology Microbiology 05/27/18 Blood Culture - Final, Complete NO GROWTH AFTER 5 DAYS 05/27/18 Blood Culture - Final, Complete NO GROWTH AFTER 5 DAYS 05/27/18 Urine Culture - Final, Complete Klebsiella Oxytoca GME ATTESTATION GME ATTESTATION My faculty preceptor for this patient encounter was physically present during the encounter and was fully available. All aspects of the patient interview, examination, medical decision making process, and medical care plan development were reviewed and approved by the faculty preceptor. The faculty preceptor is aware and concurs with the plan as stated in the body of this note and will attest to such by his/her cosignature. ATTENDING NOTE I, Luis Doty, have both independently examined this patient as well as reviewed the documentation. I have discussed in detail with the resident the findings and plan of treatment as documented in the residents documentation. I will continue to follow the patient and offer further guidance to the patients care as necessary during this hospital stay. MACI GÓMEZ DO Jun 02, 2018 10:07 LUIS DOTY MD Jun 03, 2018 17:19
[2018-06-02 16:00] VITALS: BP 158/80
[2018-06-02 20:00] VITALS: BP 162/92
[2018-06-02] MEDS ORDERED: QUEtiapine FUMARATE 12.5 MG HALF-TAB PO SCH (21:00)
[2018-06-02] MEDS: FAMOTIDINE 20 MG TAB PO SCH (21:26)
[2018-06-02] MEDS: ALLOPURINOL 300 MG TAB PO SCH (21:27)
[2018-06-03] VITALS: BP 142/78
[2018-06-03 04:00] VITALS: BP 148/72
[2018-06-03 05:36] LABS: BASO % 0.4 % (0.0-1.0); EOS # 0.5 10^3/uL (0.0-0.50); EOS % 5.5 % (0.0-3.0); HEMATOCRIT 28.8 % (42.0-52.0); HEMOGLOBIN 9.3 g/dl (13.5-17.5); LYMPH # 1.3 10^3/uL (1.5-4.5); LYMPH % 13.7 % (24.0-44.0); MEAN CORPUSCULAR HGB CONC 32.3 g/dl (32.0-36.5); MONO # 0.7 10^3/uL (0.0-0.8); MONO % 7.1 % (0.0-5.0); NEUTROPHILS % 72.9 % (36.0-66.0); PLATELET COUNT, AUTOMATED 157 10^3/uL (150-450); RED BLOOD COUNT 2.91 10^6/uL (4.30-6.10); WHITE BLOOD COUNT 9.7 10^3/uL (4.0-10.0)
[2018-06-03 05:47] LABS: CALCIUM LEVEL 8.3 MG/DL (8.8-10.2); CREATININE FOR GFR 2.16 MG/DL (0.70-1.30); GLOMERULAR FILTRATION RATE 31.3 (>35); MAGNESIUM LEVEL 1.7 MG/DL (1.8-2.4); POTASSIUM SERUM 3.5 MEQ/L (3.5-5.1)
[2018-06-03] MEDS: LEVOTHYROXINE 25MCG TABLET (0.025MG) PO SCH (06:04)
[2018-06-03] MEDS: LevoFLOXacin 750 MG TABLET PO SCH (06:05)
[2018-06-03] MEDS: SLF 3 ML SYR IV SCH ×3 (06:05→21:02)
[2018-06-03] MEDS: HumaLOG INSULIN (NovoLOG) PER UNIT SC SCH ×4 (07:27→20:12)
[2018-06-03 07:51] VITALS: BP 155/105
[2018-06-03] MEDS: ATORVASTATIN 20 MG TAB PO SCH (08:54)
[2018-06-03] MEDS: TORSEMIDE 20 MG TAB PO SCH ×2 (08:54→16:06)
[2018-06-03] MEDS: SENNA 8.6 MG TAB (SENOKOT) PO SCH (08:55)
[2018-06-03] MEDS: APIXABAN 2.5 MG TAB (ELIQUIS) PO SCH ×2 (08:55→20:11)
[2018-06-03] MEDS: ASPIRIN 81 MG ENTERIC TAB PO SCH (08:55)
[2018-06-03] MEDS: CARVedilol 12.5 MG TAB PO SCH ×2 (08:55→20:11)
[2018-06-03] MEDS ORDERED: MAG SULF 1GM/100ML (MAG RUN) 1 GM in APPROPRIATE DILUENT 1 EA IV ONE (09:00)
[2018-06-03] MEDS ORDERED: TORSEMIDE 20 MG TAB PO ONE (09:30)
--- NOTE | 2018-06-03 10:09 | IPNPDOC ---
Date Seen The patient was seen on 06/03/18. Progress Note SUBJECTIVE: Patient was seen and examined this morning. He does have a baseline cognitive impairment secondary to his dementia and recent stroke. He does admit to confusion at times but currently states that he is feeling well. He denies any shortness of breath and states that his breathing has improved. He denies any problems with urination. OBJECTIVE PHYSICAL EXAMINATION: VITAL SIGNS: Please see below. GENERAL: Awake and alert. Oriented to person. He appears in no acute distress. He appears less confused today. He is pleasant and conversive HEENT: Atraumatic normocephalic. Eyes are non-icteric. Trachea is midline. Mucous membranes are pink and moist. CARDIOVASCULAR: Irregularly irregular rhythm. Regular rate. No clicks, rubs, or murmurs RESPIRATORY: Slightly diminished breath sounds bilaterally. Good respiratory effort. No wheezes, rhonci, or rales. No crackles ABDOMINAL: Soft, nondistended. Nontender to palpation throughout. No rebound tenderness or guarding. Positive bowel sounds EXTREMITIES: 2mm pitting edema in bilateral lower extremities. Pulses are full and equal in bilateral upper and lower extremities NEUROLOGICAL: No focal neurological deficits. Baseline cognitive impairment. Patient appears somewhat confused consistent with sundowning PSYCHOLOGICAL: Mood and affect appears appropriate LABORATORY DATA, IMAGING STUDIES, MICROBIOLOGY: Please see below. Echocardiogram: DATE OF STUDY: 05/27/2018 REFERRING PHYSICIAN: Rafi Garza MD INDICATION: Heart failure, unspecified. HEIGHT: 177 cm. WEIGHT: 91 kg. 2D MEASUREMENTS: Left atrium: 4.0 cm Ventricular septum: 1.22 cm Posterior wall: 1.23 cm Left ventricle diastole: 5.3 cm Aortic anulus: 2.1 cm Inferior vena cava: 2.6 cm with approximately 50% respiratory variation DOPPLER MEASUREMENTS: Aortic valve velocity: 171 cm/s LVOT velocity: 52.5 cm/s No aortic stenosis. No aortic regurgitation. Mild mitral regurgitation. No mitral stenosis. Mitral E velocity: 141 cm/s Mitral A velocity: 55.1 cm/s Mild desaturation time: 183 ms Moderate tricuspid regurgitation. Estimated right ventricle systolic pressure: 50 mmHg assuming a right pressure of 10 mmHg. MITRAL ANNULAR TISSUE DOPPLER: E prime septal: 6.42 cm/s E prime lateral: 6.53 cm/s DESCRIPTION: Rhythm was sinus with appearance of left bundle branch block pattern. This was a moderately technically difficult echocardiogram. This was a 2D, M-mode, color flow Doppler and pulse wave Doppler examination and included mitral annular tissue Doppler. CONCLUSIONS: 1. Very mild concentric left ventricle hypertrophy. Paradoxical septal motion with resultant mild reduction of overall left ventricle (LV) systolic function. Left ventricular ejection fraction (LVEF) 45% - 50% by visual assessment. Grade 2 LV diastolic dysfunction (pseudonormal LV filling pattern). 2. Well seated and normally functioning transaortic valve replacement (TAVR). No aortic stenosis or regurgitation. 3. Suggestive of moderate elevation of estimated right ventricle systolic pressure. Moderate tricuspid regurgitation. Normal right ventricle size and systolic function. Dilated inferior vena cava. 4. Bilateral pleural effusions. 5. Tiny pericardial effusion. 6. Mild mitral annular calcification. Mild mitral regurgitation. No mitral stenosis. DD: Rafi Prasad MD [facility] 05/27/18 1721 DT: AML 05/28/18 0800 DS: [place] 05/28/18 1343 <Electronically signed by Rafi Prasad MD> 05/28/18 1343 DVT prophylaxis ordered?: YES ASSESSMENT AND PLAN: Patient is an 82 year old male with recent TAVR procedure for aortic stenosis, history of diastolic CHF, atrial fibrillation, hypothyroidism, and diabetes mellitus type II who presented to the [facility] ER with complaint of shortness of breath which has progressed since his discharge from [facility] on Tuesday05/22/2018. Patient had received an echocardiogram in the ED which was read by the client application support specialist impregnator and demonstrated no abnormalities with the aortic valve. PROBLEMS: 1. Diastolic Congestive Heart Failure Decompensated -Patient has a history of diastolic heart failure. His diuretics were recently increased however, he continued to develop shortness of breath over the past week. -Patients volume status is improving. Have changed to 60 mg Torsemide PO -Monitor BMP with ongoing dieresis. Replete Mg and K as needed -Strict I's&O's with 1500cc fluid restriction -Echocardiogram performed in ED. Dr. Prasad reviewed. Aortic valve is within normal limits. Suggests diaeresis. Report above. -Patient had an elevated creatinine likely secondary to his volume overload will continue to monitor Cr for resolution with ongoing dieresis. His creatinine appears to remain stable 2. Urinary Tract Infection -The patients urinalysis and culture at admission came back positive for UTI. This was originally felt to be asymptomatic bacteruria as he had no urinary complaints and the CFU/ml was only 40,000. The patient did receive a dose of Levofloxacin. Today his cognition appears improved. Unclear whether this is due from treating the UTI or improvement in the patients health status as a whole. -Patient was given 750 mg PO levaquin for treatment of his UTI as his cognition seems to have improved with his previous dose. This dose should cover him for 48hours. -Will receive last dose and then will discontinue 3. CKD stage III with Elevated Cr likely secondary to Acute diastolic CHF exacerbation / Cardiorenal syndrome -As stated in above. Patient likely has cardiorenal syndrome secondary to volume overload. -Will trend Cr for resolution -Cr stable. Will continue to monitor. 4. Bilateral Pleural Effusion -Patient has a large right sided pleural effusion on the right as well as an effusion on the left likely secondary to his CHF -Remains stable. He was transitioned to PO torosemide yesterday. His dose was increased to 60 BID today. 5. Atrial fibrillation -Patient is anticoagulated on Eliquis. Will continue -Currently rate controlled -He refuses to wear school lunch monitor 6. Hypertension -Patient was hypertensive at admission. Likely 2/2 volume overload. He was g iven PRN IV hydralazine. -Currently his HTN is under control. Continue Metoprolol 12.5 BID 7. Agitation 2/2 dementia -Patient is on Seroquel. Dose was increased today due to . 8. Diabetes mellitus type 2 -Sliding scale coverage 9. Gout -Continue allopurinol 10. DVT prophylaxis -Patient is chronically anticoagulated on eliquis VS, I&O, 24H, Fishbone Vital Signs/I&O Vital Signs Date Time Temp Pulse Resp B/P (MAP) Pulse Ox O2 Delivery O2 Flow Rate FiO2 06/03/18 07:51 97.8 84 18 155/105 (122) 95 2.0 05/28/18 08:16 95 I&O- Last 24 Hours up to 6 AM 06/03/18 06:00 Intake Total 740 ml Output Total 1900 ml Balance -1160 ml Laboratory Data 24H LABS Laboratory Tests 2 06/02/18 11:58: Bedside Glucose (Misc Panel) 98 06/02/18 17:00: Bedside Glucose (Misc Panel) 136H 06/02/18 21:18: Bedside Glucose (Misc Panel) 137H 06/03/18 04:56: Immature Granulocyte % (Auto) 0.4, White Blood Count 9.7, Red Blood Count 2.91L, Hemoglobin 9.3L, Hematocrit 28.8L, Mean Corpuscular Volume 99.0H, Mean Corpuscular Hemoglobin 32.0, Mean Corpuscular Hemoglobin Concent 32.3, Red Cell Distribution Width 15.1H, Platelet Count 157, Neutrophils (%) (Auto) 72.9H, Lymphocytes (%) (Auto) 13.7L, Monocytes (%) (Auto) 7.1H, Eosinophils (%) (Auto) 5.5H, Basophils (%) (Auto) 0.4, Neutrophils # (Auto) 7.0, Lymphocytes # (Auto) 1.3L, Monocytes # (Auto) 0.7, Eosinophils # (Auto) 0.5, Basophils # (Auto) 0.0, Nucleated Red Blood Cells % (auto) 0.0, Anion Gap 6L, Glomerular Filtration Rate 31.3L, Blood Urea Nitrogen 52H, Creatinine 2.16H, Sodium Level 146H, Potassium Level 3.5, Chloride Level 109H, Carbon Dioxide Level 31, Calcium Level 8.3L, Magnesium Level 1.7L CBC/BMP Laboratory Tests 06/03/18 04:56 Red Blood Count 2.91 L, Mean Corpuscular Volume 99.0 H, Mean Corpuscular Hemoglobin 32.0, Mean Corpuscular Hemoglobin Concent 32.3, Red Cell Distribution Width 15.1 H, Neutrophils (%) (Auto) 72.9 H, Lymphocytes (%) (Auto) 13.7 L, Monocytes (%) (Auto) 7.1 H, Eosinophils (%) (Auto) 5.5 H, Basophils (%) (Auto) 0.4, Neutrophils # (Auto) 7.0, Lymphocytes # (Auto) 1.3 L, Monocytes # (Auto) 0.7, Eosinophils # (Auto) 0.5, Basophils # (Auto) 0.0, Calcium Level 8.3 L Microbiology Microbiology 05/27/18 Blood Culture - Final, Complete NO GROWTH AFTER 5 DAYS 05/27/18 Blood Culture - Final, Complete NO GROWTH AFTER 5 DAYS 05/27/18 Urine Culture - Final, Complete Klebsiella Oxytoca GME ATTESTATION GME ATTESTATION My faculty preceptor for this patient encounter was physically present during the encounter and was fully available. All aspects of the patient interview, examination, medical decision making process, and medical care plan development were reviewed and approved by the faculty preceptor. The faculty preceptor is aware and concurs with the plan as stated in the body of this note and will attest to such by his/her cosignature. ATTENDING NOTE I, Luis Doty, have both independently examined this patient as well as reviewed the documentation. I have discussed in detail with the resident the findings and plan of treatment as documented in the residents documentation. I will continue to follow the patient and offer further guidance to the patients care as necessary during this hospital stay. MACI GÓMEZ DO Jun 03, 2018 10:08 LUIS DOTY MD Jun 03, 2018 17:20
[2018-06-03 11:29] VITALS: BP 135/76
[2018-06-03 16:00] VITALS: BP 126/68
[2018-06-03 20:00] VITALS: BP 150/75
[2018-06-03] MEDS: ALLOPURINOL 300 MG TAB PO SCH (20:11)
[2018-06-03] MEDS: FAMOTIDINE 20 MG TAB PO SCH (20:11)
[2018-06-03] MEDS ORDERED: QUEtiapine FUMARATE 25 MG TAB PO SCH (21:00)
[2018-06-04] VITALS: BP 158/93
[2018-06-04 04:00] VITALS: BP 149/68
[2018-06-04 05:35] LABS: BASO % 0.3 % (0.0-1.0); EOS # 0.5 10^3/uL (0.0-0.50); EOS % 5.1 % (0.0-3.0); HEMATOCRIT 28.7 % (42.0-52.0); HEMOGLOBIN 9.2 g/dl (13.5-17.5); LYMPH # 1.1 10^3/uL (1.5-4.5); LYMPH % 11.5 % (24.0-44.0); MEAN CORPUSCULAR HEMOGLOBIN 31.3 pg (27.0-33.0); MEAN CORPUSCULAR HGB CONC 32.1 g/dl (32.0-36.5); MEAN CORPUSCULAR VOLUME 97.6 fl (80.0-96.0); MONO # 0.7 10^3/uL (0.0-0.8); MONO % 7.3 % (0.0-5.0); NEUTROPHILS # 7.1 10^3/uL (1.8-7.7); NEUTROPHILS % 75.4 % (36.0-66.0); PLATELET COUNT, AUTOMATED 159 10^3/uL (150-450); RED BLOOD COUNT 2.94 10^6/uL (4.30-6.10); WHITE BLOOD COUNT 9.4 10^3/uL (4.0-10.0)
[2018-06-04 05:56] LABS: CALCIUM LEVEL 8.1 MG/DL (8.8-10.2); CREATININE FOR GFR 2.26 MG/DL (0.70-1.30); GLOMERULAR FILTRATION RATE 29.7 (>35); MAGNESIUM LEVEL 1.8 MG/DL (1.8-2.4); POTASSIUM SERUM 3.2 MEQ/L (3.5-5.1)
[2018-06-04] MEDS: SLF 3 ML SYR IV SCH ×3 (06:00→21:06)
[2018-06-04] MEDS: LEVOTHYROXINE 25MCG TABLET (0.025MG) PO SCH (06:21)
[2018-06-04 07:42] VITALS: BP 169/83
[2018-06-04] MEDS: HumaLOG INSULIN (NovoLOG) PER UNIT SC SCH ×4 (08:56→21:00)
[2018-06-04] MEDS: ATORVASTATIN 20 MG TAB PO SCH (08:57)
[2018-06-04] MEDS: ASPIRIN 81 MG ENTERIC TAB PO SCH (08:57)
[2018-06-04] MEDS: SENNA 8.6 MG TAB (SENOKOT) PO SCH (08:57)
[2018-06-04] MEDS: APIXABAN 2.5 MG TAB (ELIQUIS) PO SCH ×2 (08:57→20:13)
[2018-06-04] MEDS: TORSEMIDE 20 MG TAB PO SCH ×2 (08:58→17:02)
[2018-06-04] MEDS: CARVedilol 12.5 MG TAB PO SCH ×2 (08:58→20:14)
[2018-06-04] MEDS ORDERED: POTASSIUM CHLORIDE 10 MEQ SR TABLET PO ONE (09:00)
[2018-06-04 11:23] VITALS: BP 130/78
[2018-06-04] MEDS ORDERED: QUEtiapine FUMARATE 25 MG TAB PO ONE (14:00)
[2018-06-04 16:19] VITALS: BP 145/79
--- NOTE | 2018-06-04 16:34 | IPNPDOC ---
Text Note Date of Service The patient was seen on 06/04/18. NOTE Subjective: Patient was seen and examined at the bedside. This morning patient did not complain of any chest pain, shortness of breath or palpitations. He did report that he was confused. Patient denied nausea, vomiting, abdominal pain, constipation, diarrhea. Later this afternoon, I was called and advise that patient was confused and wanted to leave. Patient's son, Merlin was in the room. Both reiterated to the patient the importance of staying in the hospital for continued medical treatment. Patient had expressed to us his suicidal intent. Discussed with son separately, is likely that the patient is agitated. He is not a threat to himself generally. Objective: Vitals (See below) General: Lying in bed, no acute distress, comfortable, Awake / Alert, Oriented to person HEENT: NC, AT CVS: RRR, +S1S2 Lungs: Diminished air entry b/l b/l, no evidence of wheezing, rales or rhonchi Abdomen: Soft, nondistended, without tenderness Extremities: 1+ pitting edema bilaterally, - Calf tenderness Assessment and plan: Shortness of breath - likely 2/2 Decompensated diastolic CHF and Pleural effusion - Resistant the ER with shortness of breath, significant fluid overload - Currently patient notes that his breathing is doing much better - Physical has revealed significant improvement in his signs of fluid overload, although there still remains 1+ pitting edema - BNP significantly elevated on admission - Chest CT 05/27: Large right pleural effusion with adjacent right base atelectasis/infiltrate. Moderate left pleural effusion with a lesser degree of left base atelectasis/infiltrate. - Continue with strict ins and outs, daily weights and fluid restrictions - Will get chest x-ray to evaluate effusions - Patient has received net negative diuretics; has been transitioned to oral torsemide - dose increased UTI - Patient has had a Simon catheter placed on admission; has subsequently been discontinued - Will DC Levofloxacin Elevated Cr on CKD3 - likely 2/2 cardiorenal syndrome - Cr has remained stable A. fib - c/w rate control with Carvedilol - c/w full anticoagulation with Eliquis HTN - BP appears moderately controlled - c/w Carvedilol and Torsemide Agitation / Confusion - likely 2/2 Delirium on dementia - Patient has worsening dementia after his recent cardiac procedure - Patient has experienced episodes of sundowning - Today, patient was confused in the afternoon; he had indicated suicidal ideation - Psychiatry was called on consultation; have recommended Haldol when necessary and Benadryl when necessary for extrapyramidal side effects - Will DC Seroquel and start Haldol after evaluating QTc by EKG DM2 - c/w ISS Gout - c/w Allopurinol DVT prophylaxis - c/w full anticoagulation with Eliquis Disposition: - Awaiting for clinical improvement VS,Doris, I+O VSDoris I+O Laboratory Tests 06/04/18 05:02 Red Blood Count 2.94 L, Mean Corpuscular Volume 97.6 H, Mean Corpuscular Hemoglobin 31.3, Mean Corpuscular Hemoglobin Concent 32.1, Red Cell Distribution Width 15.0 H, Neutrophils (%) (Auto) 75.4 H, Lymphocytes (%) (Auto) 11.5 L, Monocytes (%) (Auto) 7.3 H, Eosinophils (%) (Auto) 5.1 H, Basophils (%) (Auto) 0.3, Neutrophils # (Auto) 7.1, Lymphocytes # (Auto) 1.1 L, Monocytes # (Auto) 0.7, Eosinophils # (Auto) 0.5, Basophils # (Auto) 0.0, Calcium Level 8.1 L Vital Signs Date Time Temp Pulse Resp B/P (MAP) Pulse Ox O2 Delivery O2 Flow Rate FiO2 06/04/18 11:23 97.4 61 18 130/78 (95) 96 06/03/18 11:29 2.0 I&O- Last 24 Hours up to 6 AM 06/04/18 06:00 Intake Total 1010 ml Output Total 1575 ml Balance -565 ml ANGELA ROSAS MD Jun 04, 2018 16:34
--- NOTE | 2018-06-04 16:55 | MHIPNPDOC ---
[facility] Progress Note Progress Note DATE OF SERVICE: 06/04/18 HISTORY: Patient is an 82-year-old male with a past medical history significant for severe aortic stenosis with recent transcatheter aortic heart valve replacement (TAVR), recent diagnosis of congestive heart failure with diastolic dysfunction, atrial fibrillation on chronic anticoagulation, hypothyroidism and diabetes who presented to [facility] emergency department with complaint of shortness of breath. Patient is accompanied by his family who gave the majority of the history as the patient has a baseline confusion secondary to a recent stroke. Family states that the patient was recently diagnosed with diastolic congestive heart failure in March. He also had a diagnosis of aortic stenosis for which 2 weeks ago he had a TAVR completed at [facility] in [place]. The family states that during his hospital stay at [facility], he suffered a stroke, since that time the patient has difficulty with comprehension. With exception to his stroke, his TAVR procedure went well. In the days following he did well. During his stay at [facility], his Torosemide dose was increased to 40 mg BID. The patient had returned home on Tuesday05/22/2018. Since that time, he has been complaining of progressive shortness of breath. He also has developed difficulty laying flat and on his side. He states that he feels like he can't breath. He denies any chest pain. The patients family also mentioned that they noticed that his legs were quite swollen since returning home from the hospital. The patient has been compliant with his medication and denies any excessive salt or fluid intake. The family became concerned as he continued to complain of shortness of breath and appeared to be getting worse. The family decided to bring him to the ER. At the ER the patient received a CT which demonstrated a large right sided pleural effusion as well as a left pleural effusion. His laboratory studies suggested volume overload as well as an CARLOS. He received 40mg IV lasix injection . Given his recent TAVR procedure, the patient received an Echocardiogram which was read by the ammunition officer ux ui designer. The patients echo demonstrated no abnormality with the aortic valve. The ux ui designer ammunition officer suggested further diaeresis. Hospitalist service was then consulted and the patient was admitted for further evaluation and management. . VITAL SIGNS: See below. NEW TEST RESULTS: Se below CURRENT MEDICATIONS: See below. According to Attending,Dr. Doty, the patient shows signs of delirium and initially he was responding to Seroquel but he is not responding at this time. he is becoming agitated during the morning hours and he has a QTC of 490. MANAGEMENT PLAN: This procedure writer recommended 2 mgs of Haldol every 8 hours PRN for anxiety or agitation. I explained that Ativan is not recommended in patient's that are his age as it may present a risk for falls and confusion, plus in c ases like this it makes them uninhibited, worsening the delirium. To prevent extrapyramidal side effects he could receive Benadryl 25 mgs. every 12 hours PRN. He should have an ECG twice/day as he is receiving these medications. TIME SPENT: 5 minutes. Vital Signs Vital Signs Date Time Temp Pulse Resp B/P (MAP) Pulse Ox O2 Delivery O2 Flow Rate FiO2 06/04/18 16:19 97.5 85 18 145/79 (101) 96 06/03/18 11:29 2.0 Laboratory Data 24H Labs Laboratory Tests 2 06/03/18 16:54: Bedside Glucose (Misc Panel) 114H 06/03/18 20:09: Bedside Glucose (Misc Panel) 96 06/04/18 05:02: Immature Granulocyte % (Auto) 0.4, White Blood Count 9.4, Red Blood Count 2.94L, Hemoglobin 9.2L, Hematocrit 28.7L, Mean Corpuscular Volume 97.6H, Mean Corpuscular Hemoglobin 31.3, Mean Corpuscular Hemoglobin Concent 32.1, Red Cell Distribution Width 15.0H, Platelet Count 159, Neutrophils (%) (Auto) 75.4H, Lymphocytes (%) (Auto) 11.5L, Monocytes (%) (Auto) 7.3H, Eosinophils (%) (Auto) 5.1H, Basophils (%) (Auto) 0.3, Neutrophils # (Auto) 7.1, Lymphocytes # (Auto) 1.1L, Monocytes # (Auto) 0.7, Eosinophils # (Auto) 0.5, Basophils # (Auto) 0.0, Nucleated Red Blood Cells % (auto) 0.0, Anion Gap 8, Glomerular Filtration Rate 29.7L, Blood Urea Nitrogen 49H, Creatinine 2.26H, Sodium Level 147H, Potassium Level 3.2L, Chloride Level 109H, Carbon Dioxide Level 30, Calcium Level 8.1L, Magnesium Level 1.8 06/04/18 11:42: Bedside Glucose (Misc Panel) 142H CBC/BMP Laboratory Tests 06/04/18 05:02 Red Blood Count 2.94 L, Mean Corpuscular Volume 97.6 H, Mean Corpuscular Hemoglobin 31.3, Mean Corpuscular Hemoglobin Concent 32.1, Red Cell Distribution Width 15.0 H, Neutrophils (%) (Auto) 75.4 H, Lymphocytes (%) (Auto) 11.5 L, Monocytes (%) (Auto) 7.3 H, Eosinophils (%) (Auto) 5.1 H, Basophils (%) (Auto) 0.3, Neutrophils # (Auto) 7.1, Lymphocytes # (Auto) 1.1 L, Monocytes # (Auto) 0.7, Eosinophils # (Auto) 0.5, Basophils # (Auto) 0.0, Calcium Level 8.1 L Current Medications Current Medications Acetaminophen (Tylenol Tab) 650 mg Q4H PRN PO PAIN / FEVER Last administered on 05/29/18 12:51; Start 05/27/18 at 18:30 Allopurinol (Zyloprim) 300 mg QPM PO Last administered on 06/03/18 20:11; Start 05/27/18 at 21:00 Apixaban (Eliquis) 2.5 mg BID PO Last administered on 06/04/18 08:57; Start 05/27/18 at 21:00 Aspirin (Ecotrin) 81 mg DAILY PO Last administered on 06/04/18 08:57; Start 05/28/18 at 09:00 Atorvastatin Calcium (Lipitor) 40 mg DAILY PO Last administered on 06/04/18 08:57; Start 05/28/18 at 09:00 Carvedilol (COReg) 12.5 mg BID PO Last administered on 06/04/18 08:58; Start 05/28/18 at 21:00 Carvedilol (COReg) 25 mg BID PO Last administered on 05/28/18 09:23; Start 05/27/18 at 21:00; Stop 05/28/18 at 10:02; Status DC Dextrose (Dextrose 50%) 25 ml ASDIRECTED PRN IV SEE LABEL COMMENTS; Start 05/27/18 at 20:15 Famotidine (Pepcid) 20 mg QHS PO Last administered on 06/03/18at 20:11; Start 05/27/18 at 21:00 Furosemide (LASIX injection) 60 mg BID IV Last administered on 05/28/18at 09:23; Start 05/27/18 at 21:00; Stop 05/28/18 at 10:18; Status DC Furosemide (LASIX injection) 60 mg Q8H IV Last administered on 06/02/18at 01:49; Start 05/28/18 at 17:00; Stop 06/02/18 at 09:38; Status DC Glucagon (Glucagon) 1 mg ASDIRECTED PRN SC SEE LABEL COMMENTS; Start 05/27/18 at 20:15 Glucose (Glucose) 16 GM ASDIRECTED PRN PO SEE LABEL COMMENTS; Start 05/27/18 at 20:15 Home Med (Med Rec Complete!) ASDIRECTED XX ; Start 05/27/18 at 18:00; Stop 05/27/18 at 18:06; Status DC Hydralazine HCl (Apresoline) 10 mg Q4HP IV ; Start 05/27/18 at 20:00; Stop 05/27/18 at 20:08; Status DC Hydralazine HCl (Apresoline) 10 mg Q4HP PRN IV for Systolic > 180; Start 05/27/18 at 20:08 Hydralazine HCl (Apresoline) 10 mg STAT STAT IV ; Start 05/27/18 at 19:46; Stop 05/27/18 at 19:47; Status Cancel Insulin Human Lispro (HumaLOG INSULIN) SEE PROTOCOL TABLE AC SC Last admin istered on 06/04/18at 12:14; Start 05/28/18 at 07:30 Insulin Human Lispro (HumaLOG INSULIN) SEE PROTOCOL TABLE QHS SC ; Start 05/27/18 at 21:00 Levofloxacin (Levaquin) 500 mg DAILY@06 PO ; Start 05/31/18 at 06:00; Stop 05/31/18 at 06:00; Status DC Levofloxacin (Levaquin) 750 mg Q48H PO Last administered on 05/30/18at 08:54; Start 05/30/18 at 09:00; Stop 05/30/18 at 12:28; Status DC Levofloxacin (Levaquin) 750 mg Q48H PO Last administered on 06/03/18 06:05; Start 06/01/18 at 06:00 Levothyroxine Sodium (Synthroid) 25 mcg DAILY@0600 PO Last administered on 06/04/18 06:21; Start 05/28/18 at 06:00 Quetiapine Fumarate (SEROquel) 12.5 mg QHS PO Last administered on 06/02/18 21:26; Start 06/02/18 at 21:00; Stop 06/03/18 at 09:30; Status DC Quetiapine Fumarate (SEROquel) 25 mg QHS PO Last administered on 06/03/18 20:11; Start 06/03/18 at 21:00 Senna (Senokot) 1 tab DAILY PO Last administered on 06/04/18 08:57; Start 05/28/18 at 09:00 Sodium Chloride ([place] Nasal Coyle) 2 SPRAYS TO EACH NOSTRIL QHS PRN NA NASAL CONGESTION; Start 05/27/18 at 18:30 Sodium Chloride ([place] Nasal [place]) 2 spray Q2HP PRN NA NASAL DRYNESS; Start 06/02/18 at 01:00 Sodium Chloride (Saline Lock Flush) 2 ml ASDIRECTED PRN IV SEE LABEL COMMENTS; Start 05/31/18 at 13:00 Sodium Chloride (Saline Lock Flush) 2 ml SLF IV Last administered on 06/04/18 12:14; Start 05/31/18 at 14:00 Torsemide (Demadex) 40 mg BID@,17 PO Last administered on 06/03/18 08:54; Start 06/02/18 at 09:00; Stop 06/03/18 at 09:20; Status DC Torsemide (Demadex) 60 mg BID@,17 PO Last administered on 06/04/18 08:58; Start 06/03/18 at 17:00 Allergies Coded Allergies: NSAIDS (Non-Steroidal Anti-Inflamma (Verified Allergy, Unknown, 05/31/18) Penicillins (Verified Allergy, Unknown, 05/31/18) RAMAN DE MD Jun 04, 2018 16:55
--- NOTE | 2018-06-04 16:57 | REP ---
Clinical: Evaluate effusion. Technique: Portable upright AP view. Comparison: 05/27/2018. Findings: Bibasilar opacities are essentially unchanged (right greater than left) and consistent with elements of pleural effusion and atelectasis/infiltrate. No pneumothorax. Skeletal structures stable. Impression: Stable bibasilar opacities suggesting effusions and atelectasis/infiltrate. Electronically Signed by Jez Carcamo MD 06/04/2018 04:48 P
[2018-06-04] MEDS ORDERED: HALOPERIDOL 0.5 MG TAB PO PRN (18:45)
[2018-06-04 20:00] VITALS: BP 150/84
[2018-06-04] MEDS: FAMOTIDINE 20 MG TAB PO SCH (20:13)
[2018-06-04] MEDS: ALLOPURINOL 300 MG TAB PO SCH (20:13)
--- NOTE | 2018-06-04 23:19 | ECGEPIP ---
Stationary ECG Study [facility] Test Date: 2018-06-04 Pat Name: ARRON MACIAS Department: Room: [place] [address] Gender: M Hard Hat Diver: RAMBO : 1935 Requested By: ANGELA ROSAS Order Number: [id number] Reading MD: Fernando Mejia Measurements Intervals [place] Rate: 88 P: [place]: 0 QRS: 0 QRSD: 181 T: 73 QT: 427 QTc: 519 Interpretive Statements ATRIAL FIBRILLATION LEFT BUNDLE BRANCH BLOCK COMPARED TO THE MOST RECENT TRACING ON 05/27/2018 AT 14:42:06, NO SIGNIFICANT CHANGES Electronically Signed On 06-04-2018 23:19:30 EDT by Fernando Mejia
[2018-06-05] VITALS: BP 148/86
[2018-06-05 04:00] VITALS: BP 154/86
[2018-06-05] MEDS: SLF 3 ML SYR IV SCH ×3 (06:00→20:30)
[2018-06-05] MEDS: LEVOTHYROXINE 25MCG TABLET (0.025MG) PO SCH (06:00)
[2018-06-05] MEDS: HumaLOG INSULIN (NovoLOG) PER UNIT SC SCH ×4 (07:30→20:30)
[2018-06-05 08:00] VITALS: BP 139/81
[2018-06-05 08:36] LABS: BASO # 0.1 10^3/uL (0.0-0.2); BASO % 0.4 % (0.0-1.0); EOS # 0.5 10^3/uL (0.0-0.50); EOS % 4.2 % (0.0-3.0); HEMATOCRIT 30.3 % (42.0-52.0); HEMOGLOBIN 9.9 g/dl (13.5-17.5); LYMPH # 1.3 10^3/uL (1.5-4.5); LYMPH % 11.1 % (24.0-44.0); MEAN CORPUSCULAR HEMOGLOBIN 31.5 pg (27.0-33.0); MEAN CORPUSCULAR HGB CONC 32.7 g/dl (32.0-36.5); MEAN CORPUSCULAR VOLUME 96.5 fl (80.0-96.0); MONO # 0.9 10^3/uL (0.0-0.8); MONO % 7.9 % (0.0-5.0); NEUTROPHILS # 8.8 10^3/uL (1.8-7.7); NEUTROPHILS % 76.1 % (36.0-66.0); PLATELET COUNT, AUTOMATED 155 10^3/uL (150-450); RED BLOOD COUNT 3.14 10^6/uL (4.30-6.10); WHITE BLOOD COUNT 11.5 10^3/uL (4.0-10.0)
[2018-06-05] MEDS: TORSEMIDE 20 MG TAB PO SCH (08:42)
[2018-06-05] MEDS: APIXABAN 2.5 MG TAB (ELIQUIS) PO SCH ×2 (08:43→20:31)
[2018-06-05] MEDS: ASPIRIN 81 MG ENTERIC TAB PO SCH (08:43)
[2018-06-05] MEDS: SENNA 8.6 MG TAB (SENOKOT) PO SCH (08:43)
[2018-06-05] MEDS: ATORVASTATIN 20 MG TAB PO SCH (08:43)
[2018-06-05] MEDS: CARVedilol 12.5 MG TAB PO SCH ×2 (08:44→20:31)
--- NOTE | 2018-06-05 08:48 | ECGEPIP ---
Stationary ECG Study [facility] Test Date: 2018-06-05 Pat Name: ARRON MACIAS Department: Room: [place] [address] Gender: M Toll Repairer Central Office: LEONIDAS : 1935 Requested By: ANGELA ROSAS Order Number: [id number] Reading MD: Selma Rose Measurements Intervals [place] Rate: 91 P: [place]: 0 QRS: 12 QRSD: 174 T: 81 QT: 423 QTc: 521 Interpretive Statements ATRIAL FIBRILLATION LEFT BUNDLE BRANCH BLOCK SIMILAR TO 06/04/18 Electronically Signed On 06-05-2018 8:48:01 EDT by Selma Rose
[2018-06-05] MEDS ORDERED: POTASSIUM CHLORIDE 10 MEQ SR TABLET PO SCH (09:00)
[2018-06-05 11:27] LABS: CREATININE FOR GFR 2.55 MG/DL (0.70-1.30); GLOMERULAR FILTRATION RATE 25.9 (>35); MAGNESIUM LEVEL 1.7 MG/DL (1.8-2.4); POTASSIUM SERUM 3.9 MEQ/L (3.5-5.1)
--- NOTE | 2018-06-05 12:42 | IPNPDOC ---
Text Note Date of Service The patient was seen on 06/05/18. NOTE Subjective: Patient was seen and examined at the bedside. . Currently, patient was seen sitting up on the side of his bed. . He denies any significant shortness of breath. Denies chest pain, palpitations or cough. She has been ambulating experiences some shortness of breath with exertion, however, nothing significant. Patient denies any nausea, vomiting, abdominal pain, constipation or diarrhea. He notes his lower extremities have been improving, however lower extremity edema still persists Objective: Vitals (See below) General: Lying in bed, no acute distress, comfortable, Awake / Alert, Oriented to person HEENT: NC, AT CVS: RRR, +S1S2 Lungs: Right side with diminished breath sounds; no evidence of wheezing or rhonchi, crackles can be appreciated very minimally at the right side Abdomen: Soft, nondistended, without tenderness Extremities: 1-2+ pitting edema bilaterally, - Calf tenderness Assessment and plan: Shortness of breath - likely 2/2 Decompensated diastolic CHF and Pleural effusion - Resistant the ER with shortness of breath, significant fluid overload - Currently patient notes that his breathing is doing much better - Physical has revealed significant improvement in his signs of fluid overload, although there still remains 1+ pitting edema - BNP significantly elevated on admission - Chest CT 05/27: Large right pleural effusion with adjacent right base atelectasis/infiltrate. Moderate left pleural effusion with a lesser degree of left base atelectasis/infiltrate. - CXR 06/04: Stable bibasilar opacities suggesting effusions and atelectasis/infiltrate. - Continue with strict ins and outs, daily weights and fluid restrictions; will increase fluid restrictions; limited to 1500 mL daily - Will hiold diuresis today (re: elevation of Cr) s/p UTI - Urine culture 05/27: Klebsiella oxytoca - Patient has had a Simon catheter placed on admission; has subsequently been discontinued - s/p Levofloxacin Elevated Cr on CKD3 - likely 2/2 cardiorenal syndrome; possibly 2/2 pre-renal e tiology - Cr has remained stable - Will reduce diuretics therapy A. fib - c/w rate control with Carvedilol - c/w full anticoagulation with Eliquis HTN - BP appears moderately controlled - c/w Carvedilol and Torsemide s/p Agitation / Confusion - likely 2/2 Delirium on dementia - Patient has worsening dementia after his recent cardiac procedure - Patient has experienced episodes of sundowning - Today patient was confused in the afternoon; he had indicated suicidal ideation - Psychiatry was called on consultation; have recommended Haldol when necessary and Benadryl when necessary for extrapyramidal side effects - Will DC Haldol - re: elevation of QTc; s/p Seroquel; QTc by EKG daily DM2 - c/w ISS Gout - c/w Allopurinol DVT prophylaxis - c/w full anticoagulation with Eliquis Disposition: - Awaiting for clinical improvement VS,Fishbone, I+O VS, Fishbone, I+O Laboratory Tests 06/05/18 08:16 Red Blood Count 3.14 L, Mean Corpuscular Volume 96.5 H, Mean Corpuscular Hemoglobin 31.5, Mean Corpuscular Hemoglobin Concent 32.7, Red Cell Distribution Width 15.4 H, Neutrophils (%) (Auto) 76.1 H, Lymphocytes (%) (Auto) 11.1 L, Monocytes (%) (Auto) 7.9 H, Eosinophils (%) (Auto) 4.2 H, Basophils (%) (Auto) 0.4, Neutrophils # (Auto) 8.8 H, Lymphocytes # (Auto) 1.3 L, Monocytes # (Auto) 0.9 H, Eosinophils # (Auto) 0.5, Basophils # (Auto) 0.1, Calcium Level 8.0 L Vital Signs Date Time Temp Pulse Resp B/P (MAP) Pulse Ox O2 Delivery O2 Flow Rate FiO2 06/05/18 08:44 78 139/81 06/05/18 08:00 98.8 18 93 06/03/18 11:29 2.0 I&O- Last 24 Hours up to 6 AM 06/05/18 06:00 Intake Total 1200 ml Output Total 900 ml Balance 300 ml ANGELA ROSAS MD Jun 05, 2018 12:42
[2018-06-05 16:00] VITALS: BP 138/88
[2018-06-05] MEDS ORDERED: TORSEMIDE 20 MG TAB PO SCH (17:00)
[2018-06-05 20:00] VITALS: BP 143/81
[2018-06-05] MEDS: FAMOTIDINE 20 MG TAB PO SCH (20:31)
[2018-06-05] MEDS: ALLOPURINOL 300 MG TAB PO SCH (20:31)
[2018-06-06 04:00] VITALS: BP 162/98
[2018-06-06] MEDS: LEVOTHYROXINE 25MCG TABLET (0.025MG) PO SCH (05:00)
[2018-06-06] MEDS: SLF 3 ML SYR IV SCH ×3 (05:00→19:59)
[2018-06-06 05:05] VITALS: BP 148/74
[2018-06-06 05:54] LABS: BASO % 0.2 % (0.0-1.0); EOS # 0.5 10^3/uL (0.0-0.50); EOS % 4.7 % (0.0-3.0); HEMATOCRIT 26.7 % (42.0-52.0); HEMOGLOBIN 8.6 g/dl (13.5-17.5); LYMPH # 1.1 10^3/uL (1.5-4.5); LYMPH % 11.3 % (24.0-44.0); MEAN CORPUSCULAR HEMOGLOBIN 31.5 pg (27.0-33.0); MEAN CORPUSCULAR HGB CONC 32.2 g/dl (32.0-36.5); MEAN CORPUSCULAR VOLUME 97.8 fl (80.0-96.0); MONO # 0.8 10^3/uL (0.0-0.8); MONO % 7.8 % (0.0-5.0); NEUTROPHILS # 7.5 10^3/uL (1.8-7.7); NEUTROPHILS % 75.6 % (36.0-66.0); PLATELET COUNT, AUTOMATED 144 10^3/uL (150-450); RED BLOOD COUNT 2.73 10^6/uL (4.30-6.10); WHITE BLOOD COUNT 9.9 10^3/uL (4.0-10.0)
[2018-06-06 06:16] LABS: CREATININE FOR GFR 2.46 MG/DL (0.70-1.30); MAGNESIUM LEVEL 1.8 MG/DL (1.8-2.4); POTASSIUM SERUM 3.9 MEQ/L (3.5-5.1)
[2018-06-06] MEDS: HumaLOG INSULIN (NovoLOG) PER UNIT SC SCH ×4 (07:30→19:59)
[2018-06-06] MEDS: ATORVASTATIN 20 MG TAB PO SCH (08:28)
[2018-06-06] MEDS: ASPIRIN 81 MG ENTERIC TAB PO SCH (08:29)
[2018-06-06] MEDS: APIXABAN 2.5 MG TAB (ELIQUIS) PO SCH ×2 (08:29→20:03)
[2018-06-06] MEDS: CARVedilol 12.5 MG TAB PO SCH ×2 (08:29→20:04)
[2018-06-06] MEDS: SENNA 8.6 MG TAB (SENOKOT) PO SCH (08:29)
[2018-06-06 08:40] VITALS: BP 138/72
--- NOTE | 2018-06-06 09:24 | ECGEPIP ---
Stationary ECG Study [facility] Test Date: 2018-06-06 Pat Name: ARRON MACIAS Department: Room: [place] [address] Gender: M County Adviser: JOSE : 1935 Requested By: ANGELA ROSAS Order Number: [id number] Reading MD: Selma Rose Measurements Intervals [place] Rate: 76 P: [place]: 0 QRS: -60 QRSD: 137 T: 94 QT: 381 QTc: 430 Interpretive Statements ATRIAL FIBRILLATION WITH VENTRICULAR PREMATURE COMPLEXES LEFT AXIS DEVIATION INTRAVENTRICULAR CONDUCTION DELAY Left bundle branch block ECTOPY NEW C/W 06/05/18 Electronically Signed On 06-06-2018 9:24:20 EDT by Selma Rose
[2018-06-06] MEDS: ALPRAZolam 0.5 MG TAB PO ONE ×2 (14:00→14:06)
[2018-06-06] MEDS: ACETAMINOPHEN TAB 650MG DOSE (2X325MG) PO PRN (14:06)
--- NOTE | 2018-06-06 15:33 | IPNPDOC ---
Subjective Date Seen The patient was seen on 06/06/18. Subjective Chief Complaint/HPI Patient seen and examined at the bedside. He was noted to be more calm and cooperative at the bedside this morning. He remains pleasantly confused, but denies any acute complaints at this time. Objective Physical Examination General Exam: Positive: Alert, Cooperative, No Acute Distress ENT Exam: Positive: Atraumatic, Mucous membr. moist/pink Chest Exam: Positive: Diminished Heart Exam: Positive: Rate Normal, Normal S1, Normal S2 Abdomen Exam: Positive: Soft; Negative: Tenderness Extremity Exam: Negative: Tenderness Assessment /Plan Plan/VTE VTE Prophylaxis Ordered?: Yes Plan Shortness of breath 2/2 Decompensated diastolic CHF Chest CT 05/27: Large right pleural effusion with adjacent right base atelectasis/infiltrate. Moderate left pleural effusion with a lesser degree of left base atelectasis/infiltrate. Volume status and respiratory status has improved following diuresis Patient off of supplemental oxygen We will cont to monitor s/p UTI Urine culture 05/27: Klebsiella oxytoca s/p Levofloxacin Elevated Cr on CKD3 - likely 2/2 cardiorenal syndrome Serum Cr 2.4 (baseline 1.8-2.2) We will cont to monitor off diuretics at this time A. fib Cont Carvedilol, Eliquis HTN Cont Meds as ordered s/p Agitation / Confusion - likely 2/2 Delirium on dementia Patient was previously on Seroquel, Haldol---this has been discontinued due to prolonged QTC QTC has improved following discontinuation of meds Psych input appreciated We will cont to provide supportive care at this time DM2 Cont ISS Gout Cont Allopurinol Hypothyroidism Cont Levothyroxine Dyslipidemia Cont Statin GERD Cont Pepcid DVT prophylaxis On Eliquis Disposition Pending clinical improvement. VS, I&O, 24H, Fishbone Vital Signs/I&O Vital Signs Date Time Temp Pulse Resp B/P (MAP) Pulse Ox O2 Delivery O2 Flow Rate FiO2 06/06/18 08:40 97.1 71 19 138/72 (94) 97 06/03/18 11:29 2.0 I&O- Last 24 Hours up to 6 AM 06/06/18 06:00 Intake Total 960 ml Output Total 1550 ml Balance -590 ml Laboratory Data 24H LABS Laboratory Tests 2 06/05/18 16:36: Bedside Glucose (Misc Panel) 127H 06/05/18 19:33: Bedside Glucose (Misc Panel) 89 06/06/18 05:23: Immature Granulocyte % (Auto) 0.4, White Blood Count 9.9, Red Blood Count 2.73L, Hemoglobin 8.6L, Hematocrit 26.7L, Mean Corpuscular Volume 97.8H, Mean Corpuscular Hemoglobin 31.5, Mean Corpuscular Hemoglobin Concent 32.2, Red Cell Distribution Width 15.1H, Platelet Count 144L, Neutrophils (%) (Auto) 75.6H, Lymphocytes (%) (Auto) 11.3L, Monocytes (%) (Auto) 7.8H, Eosinophils (%) (Auto) 4.7H, Basophils (%) (Auto) 0.2, Neutrophils # (Auto) 7.5, Lymphocytes # (Auto) 1.1L, Monocytes # (Auto) 0.8, Eosinophils # (Auto) 0.5, Basophils # (Auto) 0.0, Nucleated Red Blood Cells % (auto) 0.0, Anion Gap 4L, Glomerular Filtration Rate 27.0L, Blood Urea Nitrogen 50H, Creatinine 2.46H, Sodium Level 147H, Potassium Level 3.9, Chloride Level 111H, Carbon Dioxide Level 32, Calcium Level 8.0L, Ma gnesium Level 1.8 06/06/18 11:28: Bedside Glucose (Misc Panel) 152H CBC/BMP Laboratory Tests 06/06/18 05:23 Red Blood Count 2.73 L, Mean Corpuscular Volume 97.8 H, Mean Corpuscular Hemoglobin 31.5, Mean Corpuscular Hemoglobin Concent 32.2, Red Cell Distribution Width 15.1 H, Neutrophils (%) (Auto) 75.6 H, Lymphocytes (%) (Auto) 11.3 L, Monocytes (%) (Auto) 7.8 H, Eosinophils (%) (Auto) 4.7 H, Basophils (%) (Auto) 0.2, Neutrophils # (Auto) 7.5, Lymphocytes # (Auto) 1.1 L, Monocytes # (Auto) 0.8, Eosinophils # (Auto) 0.5, Basophils # (Auto) 0.0, Calcium Level 8.0 L Microbiology Microbiology 05/27/18 Blood Culture - Final, Complete NO GROWTH AFTER 5 DAYS 05/27/18 Blood Culture - Final, Complete NO GROWTH AFTER 5 DAYS 05/27/18 Urine Culture - Final, Complete Klebsiella Oxytoca SARAH BETTENCOURT MD Jun 06, 2018 15:33
[2018-06-06 19:58] VITALS: BP 126/82
[2018-06-06] MEDS: ALLOPURINOL 300 MG TAB PO SCH (20:03)
[2018-06-06] MEDS: FAMOTIDINE 20 MG TAB PO SCH (20:03)
[2018-06-07] MEDS: LEVOTHYROXINE 25MCG TABLET (0.025MG) PO SCH (05:06)
[2018-06-07] MEDS: SLF 3 ML SYR IV SCH ×3 (05:06→20:55)
[2018-06-07 06:00] VITALS: BP 136/76
[2018-06-07 06:39] LABS: BASO % 0.3 % (0.0-1.0); EOS # 0.5 10^3/uL (0.0-0.50); HEMATOCRIT 27.5 % (42.0-52.0); HEMOGLOBIN 8.8 g/dl (13.5-17.5); LYMPH # 1.2 10^3/uL (1.5-4.5); LYMPH % 11.7 % (24.0-44.0); MEAN CORPUSCULAR HEMOGLOBIN 31.1 pg (27.0-33.0); MEAN CORPUSCULAR VOLUME 97.2 fl (80.0-96.0); MONO # 0.8 10^3/uL (0.0-0.8); MONO % 8.2 % (0.0-5.0); NEUTROPHILS # 7.3 10^3/uL (1.8-7.7); NEUTROPHILS % 74.5 % (36.0-66.0); PLATELET COUNT, AUTOMATED 143 10^3/uL (150-450); RED BLOOD COUNT 2.83 10^6/uL (4.30-6.10); WHITE BLOOD COUNT 9.8 10^3/uL (4.0-10.0)
[2018-06-07 07:08] LABS: CALCIUM LEVEL 7.9 MG/DL (8.8-10.2); CREATININE FOR GFR 2.28 MG/DL (0.70-1.30); GLOMERULAR FILTRATION RATE 29.4 (>35); MAGNESIUM LEVEL 1.8 MG/DL (1.8-2.4); POTASSIUM SERUM 3.9 MEQ/L (3.5-5.1)
--- NOTE | 2018-06-07 07:24 | ECGEPIP ---
Stationary ECG Study [facility] Test Date: 2018-06-07 Pat Name: ARRON MACIAS Department: Room: [place] [address] Gender: M Packer: LEONIDAS : 1935 Requested By: ANGELA ROSAS Order Number: [id number] Reading MD: Selma Rose Measurements Intervals [place] Rate: 80 P: [place]: 0 QRS: -45 QRSD: 143 T: 91 QT: 395 QTc: 456 Interpretive Statements ATRIAL FIBRILLATION WITH ABERRANT CONDUCTION OR VENTRICULAR PREMATURE COMPLEXESS LEFT AXIS DEVIATION LEFT BUNDLE BRANCH BLOCK SIMILAR TO 06/06/18 PRIOR WITH Incomplete left bundle branch block VS COMPLETE LBBB Electronically Signed On 06-07-2018 7:24:26 EDT by Selma Rose
[2018-06-07] MEDS: HumaLOG INSULIN (NovoLOG) PER UNIT SC SCH ×4 (07:30→20:55)
[2018-06-07] MEDS: APIXABAN 2.5 MG TAB (ELIQUIS) PO SCH ×2 (09:26→20:34)
[2018-06-07] MEDS: ASPIRIN 81 MG ENTERIC TAB PO SCH (09:26)
[2018-06-07] MEDS: SENNA 8.6 MG TAB (SENOKOT) PO SCH (09:26)
[2018-06-07] MEDS: ATORVASTATIN 20 MG TAB PO SCH (09:26)
[2018-06-07] MEDS: CARVedilol 12.5 MG TAB PO SCH ×2 (09:28→20:35)
[2018-06-07 14:00] VITALS: BP 140/80
--- NOTE | 2018-06-07 17:30 | IPNPDOC ---
Subjective Date Seen The patient was seen on 06/07/18. Subjective Chief Complaint/HPI Patient seen and examined at the bedside. He remains calm this afternoon and has not been combative at all as per bedside staff. He denies any acute complaints at this time. Objective Physical Examination General Exam: Positive: Alert, Cooperative, No Acute Distress ENT Exam: Positive: Atraumatic, Mucous membr. moist/pink Chest Exam: Positive: Diminished Heart Exam: Positive: Rate Normal, Normal S1, Normal S2 Abdomen Exam: Positive: Soft; Negative: Tenderness Extremity Exam: Positive: Swelling (2+ pitting edema in the LE B/L); Negative: Tenderness Assessment /Plan Plan/VTE VTE Prophylaxis Ordered?: Yes Plan Shortness of breath 2/2 Decompensated diastolic CHF Chest CT 05/27: Large right pleural effusion with adjacent right base atelectasis/infiltrate. Moderate left pleural effusion with a lesser degree of left base atelectasis/infiltrate. Volume status and respiratory status has improved following diuresis Patient off of supplemental oxygen We will cont to monitor s/p UTI Urine culture 05/27: Klebsiella oxytoca s/p Levofloxacin Elevated Cr on CKD3 - likely 2/2 cardiorenal syndrome Serum Cr 2.28 (baseline 1.8-2.2) We will cont to monitor off diuretics at this time A. fib Cont Carvedilol, Eliquis HTN Cont Meds as ordered s/p Agitation / Confusion - likely 2/2 Delirium on dementia Patient was previously on Seroquel, Haldol---this has been discontinued due to prolonged QTC QTC has improved following discontinuation of meds Psych input appreciated We will cont to provide supportive care at this time, sitter has been discontinued DM2 Cont ISS Gout Cont Allopurinol Hypothyroidism Cont Levothyroxine Dyslipidemia Cont Statin GERD Cont Pepcid DVT prophylaxis On Eliquis Disposition PFS on board for placement. Tentatively scheduled for D/C in the AM. VS, I&O, 24H, Josephbone Vital Signs/I&O Vital Signs Date Time Temp Pulse Resp B/P (MAP) Pulse Ox O2 Delivery O2 Flow Rate FiO2 06/07/18 14:00 97.1 79 16 140/80 (100) 97 06/03/18 11:29 2.0 I&O- Last 24 Hours up to 6 AM 06/07/18 06:00 Intake Total 540 ml Output Total 750 ml Balance -210 ml Laboratory Data 24H LABS Laboratory Tests 2 06/06/18 17:36: Bedside Glucose (Misc Panel) 67L 06/06/18 17:56: Bedside Glucose (Misc Panel) 80L 06/06/18 19:48: Bedside Glucose (Misc Panel) 131H 06/07/18 06:07: Immature Granulocyte % (Auto) 0.3, White Blood Count 9.8, Red Blood Count 2.83L, Hemoglobin 8.8L, Hematocrit 27.5L, Mean Corpuscular Volume 97.2H, Mean Corpuscular Hemoglobin 31.1, Mean Corpuscular Hemoglobin Concent 32.0, Red Cell Distribution Width 15.0H, Platelet Count 143L, Neutrophils (%) (Auto) 74.5H, Lymphocytes (%) (Auto) 11.7L, Monocytes (%) (Auto) 8.2H, Eosinophils (%) (Auto) 5.0H, Basophils (%) (Auto) 0.3, Neutrophils # (Auto) 7.3, Lymphocytes # (Auto) 1.2L, Monocytes # (Auto) 0.8, Eosinophils # (Auto) 0.5, Basophils # (Auto) 0.0, Nucleated Red Blood Cells % (auto) 0.0, Anion Gap 6L, Glomerular Filtration Rate 29.4L, Blood Urea Nitrogen 49H, Creatinine 2.28H, Sodium Level 146H, Potassium Level 3.9, Chloride Level 111H, Carbon Dioxide Level 29, Calcium Level 7.9L, Magnesium Level 1.8 06/07/18 12:14: Bedside Glucose (Misc Panel) 258H 06/07/18 16:19: Bedside Glucose (Misc Panel) 50L 06/07/18 16:50: Bedside Glucose (Misc Panel) 65L CBC/BMP Laboratory Tests 06/07/18 06:07 Red Blood Count 2.83 L, Mean Corpuscular Volume 97.2 H, Mean Corpuscular Hemoglobin 31.1, Mean Corpuscular Hemoglobin Concent 32.0, Red Cell Distribution Width 15.0 H, Neutrophils (%) (Auto) 74.5 H, Lymphocytes (%) (Auto) 11.7 L, Monocytes (%) (Auto) 8.2 H, Eosinophils (%) (Auto) 5.0 H, Basophils (%) (Auto) 0.3, Neutrophils # (Auto) 7.3, Lymphocytes # (Auto) 1.2 L, Monocytes # (Auto) 0.8, Eosinophils # (Auto) 0.5, Basophils # (Auto) 0.0, Calcium Level 7.9 L SARAH BETTENCOURT MD Jun 07, 2018 17:30
[2018-06-07 20:00] VITALS: BP 156/78
[2018-06-07] MEDS: FAMOTIDINE 20 MG TAB PO SCH (20:34)
[2018-06-07] MEDS: ALLOPURINOL 300 MG TAB PO SCH (20:34)
[2018-06-08 06:00] VITALS: BP 140/78
[2018-06-08] MEDS: SLF 3 ML SYR IV SCH (06:00)
[2018-06-08] MEDS: LEVOTHYROXINE 25MCG TABLET (0.025MG) PO SCH (06:06)
[2018-06-08] MEDS: ACETAMINOPHEN TAB 650MG DOSE (2X325MG) PO PRN (06:10)
[2018-06-08 07:09] LABS: BASO % 0.4 % (0.0-1.0); EOS # 0.5 10^3/uL (0.0-0.50); HEMATOCRIT 25.8 % (42.0-52.0); HEMOGLOBIN 8.3 g/dl (13.5-17.5); LYMPH # 1.3 10^3/uL (1.5-4.5); LYMPH % 16.1 % (24.0-44.0); MEAN CORPUSCULAR HEMOGLOBIN 31.6 pg (27.0-33.0); MEAN CORPUSCULAR HGB CONC 32.2 g/dl (32.0-36.5); MEAN CORPUSCULAR VOLUME 98.1 fl (80.0-96.0); MONO # 0.7 10^3/uL (0.0-0.8); MONO % 8.4 % (0.0-5.0); NEUTROPHILS # 5.7 10^3/uL (1.8-7.7); NEUTROPHILS % 68.7 % (36.0-66.0); PLATELET COUNT, AUTOMATED 132 10^3/uL (150-450); RED BLOOD COUNT 2.63 10^6/uL (4.30-6.10); WHITE BLOOD COUNT 8.3 10^3/uL (4.0-10.0)
[2018-06-08 07:26] LABS: CALCIUM LEVEL 7.4 MG/DL (8.8-10.2); CREATININE FOR GFR 2.13 MG/DL (0.70-1.30); GLOMERULAR FILTRATION RATE 31.8 (>35); MAGNESIUM LEVEL 1.7 MG/DL (1.8-2.4)
[2018-06-08] MEDS: HumaLOG INSULIN (NovoLOG) PER UNIT SC SCH (07:30)
--- NOTE | 2018-06-08 07:53 | ECGEPIP ---
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
[2018-06-08] MEDS: ASPIRIN 81 MG ENTERIC TAB PO SCH (09:27)
[2018-06-08] MEDS: APIXABAN 2.5 MG TAB (ELIQUIS) PO SCH (09:27)
[2018-06-08] MEDS: ATORVASTATIN 20 MG TAB PO SCH (09:27)
[2018-06-08] MEDS: SENNA 8.6 MG TAB (SENOKOT) PO SCH (09:27)
[2018-06-08 09:28] VITALS: BP 130/75
[2018-06-08] MEDS: CARVedilol 12.5 MG TAB PO SCH (09:28)
--- NOTE | 2018-06-08 17:05 | DS.PDOC ---
Discharge Summary General Date of Admission May 27, 2018 at 21:10 Date of Discharge 06/08/18 Discharge Summary PROCEDURES PERFORMED DURING STAY: None. ADMITTING/DISCHARGE DIAGNOSES: Shortness of breath 2/2 Decompensated diastolic CHF Urinary tract infection Elevated Cr on CKD3 - likely 2/2 cardiorenal syndrome Qtc Prolongation 2/2 Psych Meds History of atrial fibrillation Hypertension Episodes of delirium History of dementia Diabetes mellitus Hypothyroidism COMPLICATIONS/CHIEF COMPLAINT: Chf (Congestive Heart Failure). HISTORY OF PRESENT ILLNESS: . 82-year-old male with a past medical history significant for severe aortic stenosis with recent transcatheter aortic heart valve replacement (TAVR), recent diagnosis of congestive heart failure with diastolic dysfunction, atrial fibrillation on chronic anticoagulation, hypothyroidism and diabetes who presented to [facility] emergency department with the complaint of shortness of breath. The patient stated that he felt that his legs were becoming increasingly swollen since his recent transcatheter aortic heart valve replacement 2 weeks prior. The patient denied any complaints of chest pain, palpitations, abdominal pain, or any nausea/vomiting/diarrhea. In the ER, a CT scan of the chest revealed bilateral pleural effusions. He was also noted to have an acute kidney injury. The patient was started on IV diuretic therapy and he was admitted under the hospitalist service for further evaluation and management. During hospitalization, the patient's volume status significantly improved with diuretic therapy. At this time, he is breathing comfortably on room air. The patient's renal function also returned back to his baseline. The patient was also diagnosed with a urinary tract infection and was treated with antibiotic t herapy. Of note, the patient did have periods of delirium superimposed on his underlying dementia, and did require a psychiatric consultation with adjustment of his medications. However, at this time the patient remains calm and cooperative with the staff. The patient was seen by physical therapy, who has recommended subacute rehab. The patient will be transferred to the rehab facility at this time. I have advised patient to follow-up with his primary care physician within 7 days. He is to return to the ER for any acute emergency. DISCHARGE MEDICATIONS: Please see below. ALLERGIES: Please see below. PHYSICAL EXAMINATION ON DISCHARGE: VITAL SIGNS: Please see below. General Exam: Positive: Alert, Cooperative, No Acute Distress ENT Exam: Positive: Atraumatic, Mucous membr. moist/pink Chest Exam: Positive: Diminished Heart Exam: Positive: Rate Normal, Normal S1, Normal S2 Abdomen Exam: Positive: Soft; Negative: Tenderness Extremity Exam: Positive: Swelling (2+ pitting edema in the LE B/L); Negative: Tenderness LABORATORY DATA: Please see below. IMAGING: DATE OF STUDY: 05/27/2018 REFERRING PHYSICIAN: Rafi Garza MD INDICATION: Heart failure, unspecified. HEIGHT: 177 cm. WEIGHT: 91 kg. 2D MEASUREMENTS: Left atrium: 4.0 cm Ventricular septum: 1.22 cm Posterior wall: 1.23 cm Left ventricle diastole: 5.3 cm Aortic anulus: 2.1 cm Inferior vena cava: 2.6 cm with approximately 50% respiratory variation DOPPLER MEASUREMENTS: Aortic valve velocity: 171 cm/s LVOT velocity: 52.5 cm/s No aortic stenosis. No aortic regurgitation. Mild mitral regurgitation. No mitral stenosis. Mitral E velocity: 141 cm/s Mitral A velocity: 55.1 cm/s Mild desaturation time: 183 ms Moderate tricuspid regurgitation. Estimated right ventricle systolic pressure: 50 mmHg assuming a right pressure of 10 mmHg. MITRAL ANNULAR TISSUE DOPPLER: E prime septal: 6.42 cm/s E prime lateral: 6.53 cm/s DESCRIPTION: Rhythm was sinus with appearance of left bundle branch block pattern. This was a moderately technically difficult echocardiogram. This was a 2D, M-mode, color flow Doppler and pulse wave Doppler examination and included mitral annular tissue Doppler. CONCLUSIONS: 1. Very mild concentric left ventricle hypertrophy. Paradoxical septal motion with resultant mild reduction of overall left ventricle (LV) systolic function. Left ventricular ejection fraction (LVEF) 45% - 50% by visual assessment. Grade 2 LV diastolic dysfunction (pseudonormal LV filling pattern). 2. Well seated and normally functioning transaortic valve replacement (TAVR). No aortic stenosis or regurgitation. 3. Suggestive of moderate elevation of estimated right ventricle systolic pressure. Moderate tricuspid regurgitation. Normal right ventricle size and systolic function. Dilated inferior vena cava. 4. Bilateral pleural effusions. 5. Tiny pericardial effusion. 6. Mild mitral annular calcification. Mild mitral regurgitation. No mitral stenosis. CT ABDOMEN AND PELVIS WITHOUT CONTRAST: CT abdomen and pelvis performed without oral or IV contrast. Sagittal and coronal reconstruction images are performed. Comparison made with prior CT abdomen and pelvis 01/03/2017. The liver and gallbladder are grossly unremarkable. Spleen, adrenals and pancreas are grossly unremarkable. There are multiple bilateral renal cysts as seen on prior study. There is no evidence of renal or ureteral calculus and no hydroureteronephrosis. Simon catheter is seen in a collapsed urinary bladder. There is atherosclerotic calcification of the abdominal aorta with mild ectasia, but no aneurysm. Maximum AP diameter is 3 cm. I see no adenopathy. I see no free air. There is mild free fluid in the pelvis. I see no bowel wall thickening. There is sigmoid and left colonic diverticulosis without acute diverticulitis. There is no evidence of appendicitis. No pelvic mass is seen. There is a small left inguinal hernia containing fat. IMPRESSION: Multiple bilateral renal cysts. No renal or ureteral calculus and no hydroureteronephrosis. No evidence of appendicitis. No free air. Sigmoid and left colonic diverticula without evidence of acute diverticulitis. Mild free fluid in the pelvis. Simon catheter in a collapsed urinary bladder. Small left inguinal hernia contains fat. CT CHEST WITHOUT IV CONTRAST: CT chest is performed without IV contrast. Sagittal and coronal reconstruction images are performed. There is a large right pleural effusion. There is patchy atelectasis/infiltrate in the right lower lobe and middle lobe. Moderate left pleural effusion is present. There is mild patchy atelectasis/infiltrate in the lingula and left lower lobe. Heart is upper limits of normal in size. Scattered subcentimeter mediastinal lymph nodes are present. Atherosclerotic calcification is seen of the thoracic aorta. There is a prosthetic aortic valve. I do not see significant pericardial fluid. There are degenerative changes of the spine. IMPRESSION: Large right pleural effusion with adjacent right base atelectasis/infiltrate. Moderate left pleural effusion with a lesser degree of left base atelectasis/infiltrate. Clinical: Evaluate effusion. Technique: Portable upright AP view. Comparison: 05/27/2018. Findings: Bibasilar opacities are essentially unchanged (right greater than left) and consistent with elements of pleural effusion and atelectasis/infiltrate. No pneumothorax. Skeletal structures stable. Impression: Stable bibasilar opacities suggesting effusions and atelectasis/infiltrate. PROGNOSIS: Poor long-term prognosis ACTIVITY: As tolerated. DIET: 2 g low sodium, 1500 mL fluid or should diet DISCHARGE PLAN: DISPOSITION: [facility]. DISCHARGE INSTRUCTIONS: I have advised patient to follow-up with his primary care physician within 7 days. He is to return to the ER for any acute emergency. DISCHARGE CONDITION: Stable. TIME SPENT ON DISCHARGE: Greater than 30 minutes. Vital Signs/I&Os Vital Signs Date Time Temp Pulse Resp B/P (MAP) Pulse Ox O2 Delivery O2 Flow Rate FiO2 06/08/18 09:28 85 130/75 06/08/18 06:00 98.3 16 97 06/03/18 11:29 2.0 I&O- Last 24 Hours up to 6 AM 06/08/18 05:59 Intake Total 600 ml Output Total 970 ml Balance -370 ml Laboratory Data Labs 24H Laboratory Tests 2 06/07/18 17:45: Bedside Glucose (Misc Panel) 94 06/07/18 20:33: Bedside Glucose (Misc Panel) 195H 06/08/18 06:55: Immature Granulocyte % (Auto) 0.4, White Blood Count 8.3, Red Blood Count 2.63L, Hemoglobin 8.3L, Hematocrit 25.8L, Mean Corpuscular Volume 98.1H, Mean Corpuscul ar Hemoglobin 31.6, Mean Corpuscular Hemoglobin Concent 32.2, Red Cell Distribution Width 15.2H, Platelet Count 132L, Neutrophils (%) (Auto) 68.7H, Lymphocytes (%) (Auto) 16.1L, Monocytes (%) (Auto) 8.4H, Eosinophils (%) (Auto) 6.0H, Basophils (%) (Auto) 0.4, Neutrophils # (Auto) 5.7, Lymphocytes # (Auto) 1.3L, Monocytes # (Auto) 0.7, Eosinophils # (Auto) 0.5, Basophils # (Auto) 0.0, Nucleated Red Blood Cells % (auto) 0.0, Anion Gap 4L, Glomerular Filtration Rate 31.8L, Blood Urea Nitrogen 49H, Creatinine 2.13H, Sodium Level 143, Potassium Level 4.0, Chloride Level 110H, Carbon Dioxide Level 29, Calcium Level 7.4L, Magnesium Level 1.7L CBC/BMP Laboratory Tests 06/08/18 06:55 Red Blood Count 2.63 L, Mean Corpuscular Volume 98.1 H, Mean Corpuscular Hemoglobin 31.6, Mean Corpuscular Hemoglobin Concent 32.2, Red Cell Distribution Width 15.2 H, Neutrophils (%) (Auto) 68.7 H, Lymphocytes (%) (Auto) 16.1 L, Monocytes (%) (Auto) 8.4 H, Eosinophils (%) (Auto) 6.0 H, Basophils (%) (Auto) 0.4, Neutrophils # (Auto) 5.7, Lymphocytes # (Auto) 1.3 L, Monocytes # (Auto) 0.7, Eosinophils # (Auto) 0.5, Basophils # (Auto) 0.0, Calcium Level 7.4 L FSBS Laboratory Tests Test 06/07/18 17:45 06/07/18 20:33 Range/Units Bedside Glucose (Misc Panel) 94 195 83-110 MG/DL Discharge Medications Scheduled Allopurinol (Zyloprim) 300 Mg Tab, 300 MG PO QPM, (Reported) Apixaban Base (Eliquis) 2.5 Mg Tab, 2.5 MG PO BID, (Reported) Aspirin (Aspirin EC) 81 Mg Tab, 81 MG PO DAILY, (Reported) Atorvastatin Calcium (Atorvastatin Calcium) 40 Mg Tab, 40 MG PO DAILY, (Reported) Carvedilol (Carvedilol) 12.5 Mg Tab, 12.5 MG PO BID, (Reported) Famotidine (Pepcid) 20 Mg Tab, 20 MG PO QHS, (Reported) Levothyroxine Sodium (Synthroid) 25 Mcg Tab, 25 MCG PO DAILY, (Reported) Senna (Senna-Tabs) 8.6 Mg Tab, 8.6 MG PO DAILY, (Reported) Sitagliptin (Januvia) 50 Mg Tab, 50 MG PO QPM, (Reported) Torsemide (Torsemide) 20 Mg Tab, 40 MG PO BID, (Reported) Scheduled PRN Acetaminophen (Acetaminophen) 325 Mg Tab, 650 MG PO Q4H PRN for PAIN / FEVER, (Reported) Sodium Chloride ([place] Nasal [place]) 0.65 % Spr, 2 SPRAY NA QHS PRN for NASAL CONGESTION, (Reported) EACH NOSTRIL Allergies Coded Allergies: NSAIDS (Non-Steroidal Anti-Inflamma (Verified Allergy, Unknown, 05/31/18) Penicillins (Verified Allergy, Unknown, 05/31/18) SARAH BETTENCOURT MD Jun 08, 2018 17:05
== END 2018-06-08 11:38 | DRG 291 ==
LOC: M ED 13:49 → UNDOADMIN 18:49 → M ED INP 18:49 → M PCU 19:50 → M MS4PR 06-06 08:35
PROVIDERS: ADMIT Internal Medicine; ATTEND Internal Medicine
DX: I13.0 Hypertensive heart and chronic kidney disease with heart failure and stage 1 through stage 4 chronic kidney disease, or unspecified chronic kidney disease (principal); I50.33 Acute on chronic diastolic (congestive) heart failure; N17.9 Acute kidney failure, unspecified; N39.0 Urinary tract infection, site not specified; F03.91 Unspecified dementia, unspecified severity, with behavioral disturbance; N18.3 Chronic kidney disease, stage 3 (moderate); E11.22 Type 2 diabetes mellitus with diabetic chronic kidney disease; I48.91 Unspecified atrial fibrillation; E03.9 Hypothyroidism, unspecified; M10.9 Gout, unspecified; B96.1 Klebsiella pneumoniae [K. pneumoniae] as the cause of diseases classified elsewhere; I69.318 Other symptoms and signs involving cognitive functions following cerebral infarction; Z95.2 Presence of prosthetic heart valve; Z87.891 Personal history of nicotine dependence; Z79.01 Long term (current) use of anticoagulants; Z79.82 Long term (current) use of aspirin; Z79.899 Other long term (current) drug therapy; Z88.0 Allergy status to penicillin; Z88.6 Allergy status to analgesic agent

== ENCOUNTER → 2018-06-21 | Outpatient (REF) | payer MEDICARE, OTHER ==
[~2018-06-21] MED LIST changes: +ACET1TAB55 PO; +ASPI-161 PO; +ASPI81TA24 PO; +ATOR40TA75 PO; +CARV12.5 PO; +CLEO300C2 PO; +OCEA0.654; +PEPC1TAB5 PO; +SENN8.6T28 PO; +SYNT25TA PO; +TORS20TA2 PO; +ZYLO300T6 PO
[2018-06-21 16:13] LABS: HEMATOCRIT 27.3 % (42.0-52.0); HEMOGLOBIN 8.8 g/dl (13.5-17.5); MEAN CORPUSCULAR HEMOGLOBIN 31.3 pg (27.0-33.0); MEAN CORPUSCULAR HGB CONC 32.2 g/dl (32.0-36.5); MEAN CORPUSCULAR VOLUME 97.2 fl (80.0-96.0); PLATELET COUNT, AUTOMATED 173 10^3/uL (150-450); RED BLOOD COUNT 2.81 10^6/uL (4.30-6.10)
[2018-06-21 16:25] LABS: CALCIUM LEVEL 7.8 MG/DL (8.8-10.2); CREATININE FOR GFR 2.35 MG/DL (0.70-1.30); GLOMERULAR FILTRATION RATE 28.4 (>35); POTASSIUM SERUM 4.8 MEQ/L (3.5-5.1)
== END ==
LOC: SKLAB6 15:10
PROVIDERS: ATTEND Internal Medicine
DX: I50.9 Heart failure, unspecified (principal); I48.91 Unspecified atrial fibrillation; Z79.01 Long term (current) use of anticoagulants; I11.0 Hypertensive heart disease with heart failure; N18.3 Chronic kidney disease, stage 3 (moderate)

== ENCOUNTER → 2018-06-26 | Outpatient (REF) | payer MEDICARE, OTHER ==
[2018-06-26 08:59] LABS: CREATININE FOR GFR 2.09 MG/DL (0.70-1.30); GLOMERULAR FILTRATION RATE 32.5 (>35)
== END ==
LOC: SKLAB6 06-23 14:00
PROVIDERS: ATTEND Internal Medicine
DX: I50.9 Heart failure, unspecified (principal); I48.91 Unspecified atrial fibrillation; E03.9 Hypothyroidism, unspecified; Z79.01 Long term (current) use of anticoagulants

== ENCOUNTER 2018-08-08 16:07 | Inpatient (IN) | payer MEDICARE, OTHER ==
[~2018-08-08] VITALS: Ht 177.8 cm; Wt 92.0 kg
[2018-08-08] MEDS ORDERED: LISI10TA4 PO (16:21)
[2018-08-08] MEDS ORDERED: SPIR-10 PO (16:21)
--- NOTE | 2018-08-08 17:18 | REP ---
PORTABLE CHEST: AP portable view of the chest was performed and compared to the prior study of 06/04/2018. There is cardiomegaly again noted. Bibasilar infiltrates and effusions have improved since the prior exam with mild residual bilaterally. There is calcification of the thoracic aorta. The mediastinal silhouette is unchanged. Electronically Signed by Mauricio Moyer MD 08/10/2018 08:42 A
[2018-08-08] MEDS ORDERED: CARV6.25 PO (17:33)
[2018-08-08] MEDS ORDERED: NON-325T5 PO (17:36)
[2018-08-08 17:42] LABS: BASO % 0.4 % (0.0-1.0); EOS # 0.5 10^3/uL (0.0-0.50); EOS % 6.9 % (0.0-3.0); HEMATOCRIT 30.5 % (42.0-52.0); HEMOGLOBIN 9.7 g/dl (13.5-17.5); LYMPH # 1.1 10^3/uL (1.5-4.5); LYMPH % 14.1 % (24.0-44.0); MEAN CORPUSCULAR HEMOGLOBIN 32.2 pg (27.0-33.0); MEAN CORPUSCULAR HGB CONC 31.8 g/dl (32.0-36.5); MEAN CORPUSCULAR VOLUME 101.3 fl (80.0-96.0); MONO # 0.6 10^3/uL (0.0-0.8); MONO % 8.2 % (0.0-5.0); NEUTROPHILS # 5.4 10^3/uL (1.8-7.7); NEUTROPHILS % 70.3 % (36.0-66.0); PLATELET COUNT, AUTOMATED 201 10^3/uL (150-450); RED BLOOD COUNT 3.01 10^6/uL (4.30-6.10); WHITE BLOOD COUNT 7.7 10^3/uL (4.0-10.0)
[2018-08-08 17:52] LABS: ALBUMIN 2.2 GM/DL (3.2-5.2); BILIRUBIN,DIRECT 0.1 MG/DL (0.0-0.2); BILIRUBIN,TOTAL 0.2 MG/DL (0.2-1.0); C REACTIVE PROTEIN QUANTITATIV 1.27 MG/DL (0.00-0.30); CALCIUM LEVEL 8.4 MG/DL (8.8-10.2); CREATININE FOR GFR 2.44 MG/DL (0.70-1.30); FREE T4 1.08 NG/DL (0.76-1.46); GLOMERULAR FILTRATION RATE 27.2 (>35); MB/CK RELATIVE INDEX 7.02 (< OR =4); POTASSIUM SERUM 4.7 MEQ/L (3.5-5.1); THYROID STIMULATING HORMONE 4.16 uIU/ML (0.358-3.740); TOTAL PROTEIN 6.5 GM/DL (6.4-8.2); TROPONIN I 0.03 NG/ML (< 0.10)
[2018-08-08 18:14] LABS: INR 1.3; PROTHROMBIN TIME 16.4 SECONDS (12.1-14.4)
[2018-08-08 18:15] LABS: PARTIAL THROMBOPLASTIN TIME 34.6 SECONDS (25.4-37.6)
--- NOTE | 2018-08-08 19:03 | REPVR ---
EXAM: CT Chest Without Contrast EXAM DATE/TIME: 08/08/2018 6:43 PM CLINICAL HISTORY: 82 years old, male; Chest pain; Additional info: Shortness of breath/worsing renal function TECHNIQUE: Imaging protocol: Axial computed tomography images of the chest without intravenous contrast. Coronal and sagittal reformatted images were created and reviewed. Radiation optimization: All CT scans at this facility use at least one of these dose optimization techniques: automated exposure control; mA and/or kV adjustment per patient size (includes targeted exams where dose is matched to clinical indication); or iterative reconstruction. COMPARISON: CT Chest without contrast 05/27/2018 3:36 PM FINDINGS: Limitations: Lack of intravenous contrast material limits evaluation of the vascular and visceral structures. Lungs: Stable 4 mm groundglass nodule in the right upper lobe. Noncalcified 3 mm nodule in the right middle lobe (series 201 image 59). This was not definitively identified on the prior CT. 4 mm groundglass nodule in the left upper lobe, not definitively identified on the prior exam (series 201 image 53). Stable noncalcified groundglass 3 mm nodule in the left upper lobe (series 201 image 59). Calcified right middle lobe granuloma. Linear scarring in the right middle lobe. Consolidation in the dependent right lower lobe. Minimal interstitial pulmonary edema. Mild scarring in the lingula. Mild dependent left lower lobe atelectasis. Pleural space: Moderate right and small left pleural effusions. Heart: Prosthetic cardiac valve. Moderate coronary artery calcifications. Mitral annulus calcification. Mild cardiomegaly. Aorta: Moderate atherosclerotic calcification of the thoracic aorta. Lymph nodes: Unremarkable. No enlarged lymph nodes. Bones/joints: Bilateral glenohumeral joint DJD. Bilateral sternoclavicular joint DJD. Degenerative change of the spine. Soft tissues: Unremarkable. Upper abdomen: Abdominal findings are dictated separately. IMPRESSION: 1. Moderate right and small left pleural effusions, both decreased since the prior exam. 2. Consolidation in the dependent right lower lobe, which may represent atelectasis. Correlate clinically to exclude superimposed pneumonia. 3. Minimal interstitial pulmonary edema. 4. Noncalcified 3 mm and 4 mm pulmonary nodules, not definitively identified on the prior CT. Recommend followup according to Fleischner criteria. 5. Additional nonacute findings, as above. Fleischner society recommendations for followup and management of pulmonary nodules in adults detected incidentally on screening CT (2017): Less than or equal to 6 mm (solitary or multiple): Low risk patients- no followup needed. High risk patients- optional CT in 12 months. 6-8 mm nodule (solitary): Low-risk patients- CT at 6-[address] at 18-24 months. High risk patients- CT at 6-12 months, then CT at 18-24 months. 6-8 mm nodule (multiple): Low-risk patients- CT at 3-[address] at 18-24 months. High risk patients- CT at 3-6 months, then CT at 18-24 months. >8 mm (solitary): Low-risk patients- consider CT, PET/CT, or tissue sampling at 3 months. High-risk patients- same as for low-risk patients. >8mm (multiple): Low-risk patients - CT at 3-6 months, then at 18-24 months. High-risk patients - same as for low risk patients. Electronically signed by: Sue Cee On 08/08/2018 19:03:15 PM
--- NOTE | 2018-08-08 19:30 | REPVR ---
EXAM: CT Abdomen and Pelvis Without Contrast EXAM DATE/TIME: 08/08/2018 6:43 PM CLINICAL HISTORY: 82 years old, male; Abdominal pain; Additional info: Shortness of breath/worsing renal function TECHNIQUE: Imaging protocol: Axial computed tomography images of the abdomen and pelvis without contrast. Coronal and sagittal reformatted images were created and reviewed. Radiation optimization: All CT scans at this facility use at least one of these dose optimization techniques: automated exposure control; mA and/or kV adjustment per patient size (includes targeted exams where dose is matched to clinical indication); or iterative reconstruction. COMPARISON: CT ABD PELVIS W/O CONTRAST 05/27/2018 3:36 PM FINDINGS: Lungs: Discoid atelectasis or scar noted in the right middle lobe and right lower lobe. Subsegmental atelectasis in the lingula. Compression atelectasis in the dependent portion of the right lung base. Pleural space: There are moderate-sized bilateral pleural effusions, right greater the left. Heart: Mitral annular calcification. There is mild cardiomegaly. ABDOMEN: Liver: There is enlargement of the left lobe of the liver with subtle nodularity of the liver contour. Gallbladder and bile ducts: Hyperdensity noted within the neck of the gallbladder suggests hyperdense bile or gallstones. No ductal dilation. Pancreas: Normal. No ductal dilation. Spleen: 1.4 cm accessory spleen anterior and inferior to the spleen. Adrenals: Normal. No mass. Kidneys and ureters: There are numerous low density lesions is seen within both kidneys unchanged in size and number compared to the previous examination . Parapelvic cyst versus focally dilated calyx in the lower pole left kidney without change. No hydronephrosis. Stomach and bowel:Diffuse colonic diverticulosis most severe in the sigmoid colon . Appendix: No evidence of appendicitis. PELVIS: Bladder: Unremarkable as visualized. Reproductive: Prostate measures 4.4 x 5.3 x 4.4 cm.. Prostatic calcifications are present. Large right-sided hydrocele. Small to moderate left-sided hydrocele. ABDOMEN and PELVIS: Intraperitoneal space: Normal. No free air. No significant fluid collection. Bones/joints: Grade 1 spondylolisthesis at L5-S1 with 3 mm retrolisthesis of L5 with respect S1. Straightening of normal lumbar lordosis. Degenerative changes noted of the dorsal spine. . advanced degenerative changes of both hip joints. Hemisacralization of the L5 vertebral body on the left. Levoscoliosis of the thoracolumbar spine. Soft tissues: Bilateral inguinal hernias containing fat, left greater than right. Mild anasarca which is improved compared to previous. Vasculature: Aortic valvular prosthesis noted. Fusiform infrarenal abdominal aortic aneurysm with maximum diameter 3.2 cm. Lymph nodes: Normal. No enlarged lymph nodes. IMPRESSION: 1. Moderate size bilateral pleural effusions, right greater than left with compression atelectasis particularly at the right lung base. 2. Cardiomegaly. 3. Bilateral too numerous to count low-density lesions within the kidneys unchanged from previous. No hydronephrosis in either kidney. 4. Colonic diverticulosis. 5. Fusiform infrarenal abdominal aortic aneurysm with maximum diameter 3.2 cm. No change. 6. Large right-sided hydrocele. Small to moderate left hydrocele. 7. Subtle nodularity of liver contour with enlargement of the left lobe suggest the possibility of cirrhosis 8. Hyperdensity noted within the neck of the gallbladder suggests hyperdense bile or gallstones COMMENT: Consistent with the [employer]'s Incidental Findings Committee Report (J [employer]iol 2010): Unless the patient's specific circumstances suggest otherwise, any liver lesion 0.5 cm or less, any cystic kidney lesion less than 1.0 cm, and/or any adrenal lesion 1.0 cm or less not otherwise characterized in this report as possessing suspicious or indeterminate imaging features is/are highly likely to be benign and do not require follow-up imaging or biopsy. Electronically signed by: Yvette Juárez On 08/08/2018 19:29:42 PM
[2018-08-08] MEDS ORDERED: FUROSEMIDE 100 MG/10 ML VIAL (J1940) IV ONE (20:00)
[2018-08-08] MEDS: HumaLOG INSULIN (NovoLOG) PER UNIT SC SCH (21:00)
[2018-08-08] MEDS ORDERED: ACETAMINOPHEN TAB 650MG DOSE (2X325MG) PO PRN (23:30)
[2018-08-08] MEDS ORDERED: GLUCAGON FOR INJ 1 MG VIAL (J1610) SC PRN (23:45)
[2018-08-08] MEDS ORDERED: GLUCOSE 4 GM CHEW TABLET PO PRN (23:45)
[2018-08-08] MEDS ORDERED: DEXTROSE 50% 50 ML SYRINGE IV PRN (23:45)
--- NOTE | 2018-08-08 23:46 | HPEPDOC ---
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 He has had recent admission for similar complaints requiring IV diuresis for a period of time and subsequently went to Rehab. He presented this time also with LE swelling, CH, and also CARLOS on CKD, similar to previous. He is currently comfortable and denies any complaints including SOB or chest pain. Most discomfort is with activity. BNP this time noted to be at 16,000 compare to 8,000 in recent admission. Cr 2.44 from around 2.09 prior. PAST MEDICAL HISTORY: Refer to [facility] PAST SURGICAL HISTORY: TAVR hernia repair SOCIAL HISTORY: Previous smoker. Social alcohol, no drugs. FAMILY HISTORY: Dad with DM ALLERGIES: Please see below. REVIEW OF SYSTEMS: 10 point review of system negative except as stated in HPI HOME MEDICATIONS: Please see below. PHYSICAL EXAMINATION: General: No acute distress, Alert Eyes: Normal sclera, EOMI, GRADY HENT: Atraumatic, neck supple, moist mucous membranes Cardiovascular: Normal rate, irregular irregular rhythm. 2+ pitting edema b/l. Pulmonary: Clear to auscultation b/l, no wheezing GI: Soft, nontender, nondistended Skin: Warm and dry Neuro: CN grossly intact. No focal deficits. Strengths equal b/l. Psych: oriented x 3 LABORATORY DATA: See below. IMAGING: CXR- AP portable view of the chest was performed and compared to the prior study of 06/04/2018. There is cardiomegaly again noted. Bibasilar infiltrates and effusions have improved since the prior exam with mild residual bilaterally. There is calcification of the thoracic aorta. The mediastinal silhouette is unchanged. Chest CT- IMPRESSION: 1. Moderate right and small left pleural effusions, both decreased since the prior exam. 2. Consolidation in the dependent right lower lobe, which may represent atelectasis. Correlate clinically to exclude superimposed pneumonia. 3. Minimal interstitial pulmonary edema. 4. Noncalcified 3 mm and 4 mm pulmonary nodules, not definitively identified on the prior CT. Recommend followup according to Fleischner criteria. 5. Additional nonacute findings, as above. MICROBIOLOGY: Please see below. ASSESSMENT AND PLAN: 1. Acute on chronic combine HF exacerbation - LE swelling with b/l pleural effusion on CT/CXR but improved from prior. - Initiated IV diuresis. - Monitor daily weights, I/O. - fluid restriction. 2. CARLOS on CKD - Appear to occur when patient is fluid overloaded, likely 2/2 cardiorenal syndrome. - Will diuresis, monitor daily BMP. 3. Afib - resume home meds. - Eliquis for AC. 4. Hypothyroidism - resume home medication. 5. HTN - Resume home meds. - Monitor BP. DVT ppx: Eliquis Code status: DNR w/ no "extreme measures" Vital Signs Vital Signs Date Time Temp Pulse Resp B/P (MAP) Pulse Ox O2 Delivery O2 Flow Rate FiO2 08/08/18 22:00 96 20 150/96 (114) 94 Room Air 08/08/18 16:08 97.1 Laboratory Data Labs 24H Laboratory Tests 2 08/08/18 17:10: Immature Granulocyte % (Auto) 0.1, White Blood Count 7.7, Red Blood Count 3.01L, Hemoglobin 9.7L, Hematocrit 30.5L, Mean Corpuscular Volume 101.3H, Mean Corpuscular Hemoglobin 32.2, Mean Corpuscular Hemoglobin Concent 31.8L, Red Cell Distribution Width 18.0H, Platelet Count 201, Neutrophils (%) (Auto) 70.3H, Lymphocytes (%) (Auto) 14.1L, Monocytes (%) (Auto) 8.2H, Eosinophils (%) (Auto) 6.9H, Basophils (%) (Auto) 0.4, Neutrophils # (Auto) 5.4, Lymphocytes # (Auto) 1.1L, Monocytes # (Auto) 0.6, Eosinophils # (Auto) 0.5, Basophils # (Auto) 0.0, Nucleated Red Blood Cells % (auto) 0.0, Prothrombin Time 16.4H, Prothromb Time International Ratio 1.30, Activated Partial Thromboplast Time 34.6, Anion Gap 8, Glomerular Filtration Rate 27.2L, Calcium Level 8.4L, Aspartate Amino Transf (AST/SGOT) 17, Alanine Aminotransferase (ALT/SGPT) 17, Alkaline Phosphatase 194H, Total Bilirubin 0.2, Direct Bilirubin 0.1, Total Creatine Kinase 47, Creatine Kinase MB 3.0, Creatine Kinase MB Relative Index 7.02H, Troponin I 0.03, C-Reactive Protein, Quantitative 1.27H, SZ-Gde-Z-Type Natriuretic Peptide 99107S, Total Protein 6.5, Albumin 2.2L, Albumin/Globulin Ratio 0.51L, Lipase 154, Thyroid Stimulating Hormone (TSH) 4.160H, Free Thyroxine 1.08 CBC/BMP Laboratory Tests 08/08/18 17:10 Red Blood Count 3.01 L, Mean Corpuscular Volume 101.3 H, Mean Corpuscular Hemoglobin 32.2, Mean Corpuscular Hemoglobin Concent 31.8 L, Red Cell Distribution Width 18.0 H, Neutrophils (%) (Auto) 70.3 H, Lymphocytes (%) (Auto) 14.1 L, Monocytes (%) (Auto) 8.2 H, Eosinophils (%) (Auto) 6.9 H, Basophils (%) (Auto) 0.4, Neutrophils # (Auto) 5.4, Lymphocytes # (Auto) 1.1 L, Monocytes # (Auto) 0.6, Eosinophils # (Auto) 0.5, Basophils # (Auto) 0.0 Home Medications Scheduled Allopurinol (Zyloprim) 300 Mg Tab, 300 MG PO QPM Apixaban (Eliquis) 2.5 Mg Tab, 2.5 MG PO BID Aspirin (Aspirin EC) 81 Mg Tab, 81 MG PO DAILY Atorvastatin Calcium (Atorvastatin Calcium) 40 Mg Tab, 40 MG PO DAILY Carvedilol (Carvedilol) 6.25 Mg Tablet, 6.25 MG PO BID Levothyroxine Sodium (Synthroid) 25 Mcg Tab, 25 MCG PO DAILY Lisinopril (Lisinopril) 10 Mg Tablet, 10 MG PO QHS Sitagliptin (Januvia) 50 Mg Tab, 50 MG PO QPM Spironolactone (Spironolactone) 25 Mg Tablet, 12.5 MG PO DAILY Torsemide (Torsemide) 20 Mg Tab, 30 MG PO DAILY Scheduled PRN Acetaminophen (Acetaminophen) 325 Mg Tablet, 650 MG PO Q4H PRN for PAIN Allergies Coded Allergies: NSAIDS (Non-Steroidal Anti-Inflamma (Verified Allergy, Unknown, 05/31/18) Penicillins (Verified Allergy, Unknown, 05/31/18) A-FIB/CHADSVASC A-FIB History Current/History of A-Fib/PAF?: Yes Current PO Anticoag Therapy: Yes DELMA JEFF MD Aug 08, 2018 23:46
[2018-08-09] VITALS (9 sets, daily range): BP systolic 143–182; BP diastolic 66–102
[2018-08-09] MEDS: LISINOPRIL 10 MG TAB PO SCH ×2 (00:16→20:54)
[2018-08-09] MEDS: APIXABAN 2.5 MG TAB (ELIQUIS) PO SCH ×3 (00:16→20:54)
[2018-08-09] MEDS: ALLOPURINOL 300 MG TAB PO SCH ×2 (00:16→20:53)
[2018-08-09] MEDS ORDERED: METOPROLOL 5 MG/5 ML VIAL IV STA (01:35)
[2018-08-09 07:00] LABS: HEMATOCRIT 29.3 % (42.0-52.0); HEMOGLOBIN 9.3 g/dl (13.5-17.5); MEAN CORPUSCULAR HEMOGLOBIN 32.5 pg (27.0-33.0); MEAN CORPUSCULAR HGB CONC 31.7 g/dl (32.0-36.5); MEAN CORPUSCULAR VOLUME 102.4 fl (80.0-96.0); PLATELET COUNT, AUTOMATED 166 10^3/uL (150-450); RED BLOOD COUNT 2.86 10^6/uL (4.30-6.10); WHITE BLOOD COUNT 7.5 10^3/uL (4.0-10.0)
[2018-08-09] MEDS: LEVOTHYROXINE 25MCG TABLET (0.025MG) PO SCH (07:10)
[2018-08-09] MEDS: FUROSEMIDE 100 MG/10 ML VIAL (J1940) IV SCH ×3 (07:15→20:55)
[2018-08-09 07:21] LABS: CALCIUM LEVEL 8.8 MG/DL (8.8-10.2); CREATININE FOR GFR 2.35 MG/DL (0.70-1.30); GLOMERULAR FILTRATION RATE 28.4 (>35); POTASSIUM SERUM 4.3 MEQ/L (3.5-5.1)
[2018-08-09] MEDS: HumaLOG INSULIN (NovoLOG) PER UNIT SC SCH ×4 (07:23→21:00)
--- NOTE | 2018-08-09 07:51 | ECGEPIP ---
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
[2018-08-09] MEDS: ATORVASTATIN 20 MG TAB PO SCH (08:21)
[2018-08-09] MEDS: ASPIRIN 81 MG ENTERIC TAB PO SCH (08:21)
[2018-08-09] MEDS: CARVedilol 6.25 MG TAB PO SCH ×2 (08:56→20:54)
--- NOTE | 2018-08-09 18:30 | IPNPDOC ---
Subjective Date Seen The patient was seen on 08/09/18. Subjective Chief Complaint/HPI Pateint says he feels much better today. His breathing has improved. he is able to lie down flat which he was unable to do at home. his leg swelling is also better. No fever or chills, no chest pain or cough. Objective Physical Examination General Exam: Positive: Alert, Cooperative, No Acute Distress Eye Exam: Positive: PERRLA, Conjunctiva & lids normal, EOMI; Negative: Sclera icteric ENT Exam: Positive: Atraumatic, Mucous membr. moist/pink, Pharynx Normal Neck Exam: Positive: Supple Chest Exam: Positive: Clear to auscultation, Diminished (at the bases) Heart Exam: Positive: Tachycardic, Irregular Rhythm, Normal S1, Normal S2; Negative: Regular Rhythm, Gallops, Murmurs, Rubs Telemetry: Positive: Atrial fibrillation Abdomen Exam: Positive: Normal bowel sounds, Soft; Negative: Tenderness, Hepatospenomegaly Extremity Exam: Positive: Edema Skin Exam: Positive: Nl turgor and temperature; Negative: Rash, Breakdown Neuro Exam: Positive: Normal Speech, Strength at 5/5 X4 ext, Normal Tone Assessment /Plan Assessment Patient is an 82-year-old male with past medical history of 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 He has had recent admission for similar complaints requiring IV diuresis for a period of time and subsequently went to Rehab. He presented this time also with LE swelling, CH, and also CARLOS on CKD, similar to previous. He is currently comfortable and denies any complaints including SOB or chest pain. Most discomfort is with activity. BNP this time noted to be at 16,000 compare to 8,000 in recent admission. Cr 2.44 from around 2.09 prior. Acute on chronic combine Systolic and Diastolic Heart failure exacerbation Continue IV Lasix Monitor daily weights, I/O. fluid restriction. CARLOS on CKD Baseline creatinine aroun 1.8 to 2.0 due to cardiorenal syndrome. Will diuresis, monitor daily BMP. Afib with rvr will increase dose of coreg as rate not well controlled. Eliquis for AC. Hypothyroidism resume home medication. HTN coreg and lasix and lisinopril monitor potassium History of dementia and delirium with sickness. now at baseline, calm and cooperative, alert and oriented x 3 Diabetes mellitus sugars well controlled on sliding scale lispro Will restart januvia but at lower dose than at home as GFR < 30 H/o gout on allopurinol. Plan/VTE VTE Prophylaxis Ordered?: Yes VS, I&O, 24H, Fishbone Vital Signs/I&O Vital Signs Date Time Temp Pulse Resp B/P (MAP) Pulse Ox O2 Delivery O2 Flow Rate FiO2 08/09/18 14:00 160/88 (112) 08/09/18 13:45 96.3 86 20 97 08/09/18 02:55 Room Air I&O- Last 24 Hours up to 6 AM 08/09/18 06:00 Intake Total 60 ml Output Total 1450 ml Balance -1390 ml Laboratory Data 24H LABS Laboratory Tests 2 08/09/18 00:19: Bedside Glucose (Misc Panel) 151H 08/09/18 06:41: Nucleated Red Blood Cells % (auto) 0.0, Anion Gap 6L, Glomerular Filtration Rate 28.4L, Blood Urea Nitrogen 42H, Creatinine 2.35H, Sodium Level 145, Potassium Level 4.3, Chloride Level 114H, Carbon Dioxide Level 25, Calcium Level 8.8 08/09/18 11:34: Bedside Glucose (Misc Panel) 159H 08/09/18 17:01: Bedside Glucose (Misc Panel) 88 CBC/BMP Laboratory Tests 08/09/18 06:41 Red Blood Count 2.86 L, Mean Corpuscular Volume 102.4 H, Mean Corpuscular Hemoglobin 32.5, Mean Corpuscular Hemoglobin Concent 31.7 L, Red Cell Distribution Width 17.7 H, Calcium Level 8.8 CHRISTIAN BARKER MD Aug 09, 2018 18:29
[2018-08-09] MEDS ORDERED: PILL CUTTER 1 EACH XX PRN (18:45)
[2018-08-09] MEDS: SITagliptin 50 MG TAB (JANUVIA) PO SCH (20:54)
[2018-08-10 05:50] LABS: BASO % 0.4 % (0.0-1.0); EOS # 0.5 10^3/uL (0.0-0.50); EOS % 5.7 % (0.0-3.0); HEMOGLOBIN 8.9 g/dl (13.5-17.5); LYMPH # 1.4 10^3/uL (1.5-4.5); LYMPH % 17.6 % (24.0-44.0); MEAN CORPUSCULAR HEMOGLOBIN 33.5 pg (27.0-33.0); MEAN CORPUSCULAR VOLUME 101.5 fl (80.0-96.0); MONO # 0.8 10^3/uL (0.0-0.8); MONO % 9.8 % (0.0-5.0); NEUTROPHILS # 5.2 10^3/uL (1.8-7.7); NEUTROPHILS % 66.2 % (36.0-66.0); PLATELET COUNT, AUTOMATED 166 10^3/uL (150-450); RED BLOOD COUNT 2.66 10^6/uL (4.30-6.10); WHITE BLOOD COUNT 7.8 10^3/uL (4.0-10.0)
[2018-08-10 06:00] VITALS: BP 138/88
[2018-08-10] MEDS: LEVOTHYROXINE 25MCG TABLET (0.025MG) PO SCH (06:15)
[2018-08-10] MEDS: FUROSEMIDE 100 MG/10 ML VIAL (J1940) IV SCH ×2 (06:16→17:28)
[2018-08-10 06:25] LABS: CALCIUM LEVEL 8.5 MG/DL (8.8-10.2); CREATININE FOR GFR 2.33 MG/DL (0.70-1.30); GLOMERULAR FILTRATION RATE 28.7 (>35); MAGNESIUM LEVEL 1.4 MG/DL (1.8-2.4)
[2018-08-10] MEDS ORDERED: MAG SULF 1GM/100ML (MAG RUN) 1 GM in APPROPRIATE DILUENT 1 EA IV ONE (07:00)
[2018-08-10] MEDS: HumaLOG INSULIN (NovoLOG) PER UNIT SC SCH ×4 (07:30→21:00)
[2018-08-10] MEDS: CARVedilol 6.25 MG TAB PO SCH ×2 (09:48→21:20)
[2018-08-10] MEDS: ASPIRIN 81 MG ENTERIC TAB PO SCH (09:49)
[2018-08-10] MEDS: APIXABAN 2.5 MG TAB (ELIQUIS) PO SCH ×2 (09:49→21:19)
[2018-08-10] MEDS: ATORVASTATIN 20 MG TAB PO SCH (09:49)
--- NOTE | 2018-08-10 12:44 | IPNPDOC ---
Subjective Date Seen The patient was seen on 08/10/18. Subjective Chief Complaint/HPI Sob is improving , no cough , leg swelling also improving, there is no post void residual in bladder scanning though patient continues to go to the bathroom every 2 hours. Says he does that at home also and also at night so does not get much sleep. No cough or phlegm , no fever or chills Objective Physical Examination General Exam: Positive: Alert, Cooperative, No Acute Distress Eye Exam: Positive: PERRLA, Conjunctiva & lids normal, EOMI; Negative: Sclera icteric ENT Exam: Positive: Atraumatic, Mucous membr. moist/pink, Pharynx Normal Neck Exam: Positive: Supple Chest Exam: Positive: Clear to auscultation, Diminished (at the bases) Heart Exam: Positive: Tachycardic, Irregular Rhythm, Normal S1, Normal S2; Negative: Regular Rhythm, Gallops, Murmurs, Rubs Telemetry: Positive: Atrial fibrillation Abdomen Exam: Positive: Normal bowel sounds, Soft; Negative: Tenderness, Hepatospenomegaly Extremity Exam: Positive: Edema Skin Exam: Positive: Nl turgor and temperature; Negative: Rash, Breakdown Neuro Exam: Positive: Normal Speech, Strength at 5/5 X4 ext, Normal Tone Assessment /Plan Assessment Patient is an 82-year-old male with past medical history of 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 He has had recent admission for similar complaints requiring IV diuresis for a period of time and subsequently went to Rehab. He presented this time also with LE swelling, CH, and also CARLOS on CKD, similar to previous. He is currently comfortable and denies any complaints including SOB or chest pain. Most discomfort is with activity. BNP this time noted to be at 16,000 compare to 8,000 in recent admission. Cr 2.44 from around 2.09 prior. Acute on chronic combine Systolic and Diastolic Heart failure exacerbation Continue IV Lasix Monitor daily weights, I/O. fluid restriction. CARLOS on CKD Baseline creatinine around 1.8 to 2.0 due to cardiorenal syndrome. continue diuresis, monitor daily BMP. Afib with rvr will increase dose of coreg as rate not well controlled. Eliquis for AC. Hypothyroidism resume home medication. HTN coreg and lasix and lisinopril monitor potassium History of dementia and delirium with sickness. now at baseline, calm and cooperative, alert and oriented x 3 Diabetes mellitus sugars well controlled on sliding scale lispro Will restart januvia but at lower dose than at home as GFR < 30 H/o gout on allopurinol. Plan/VTE VTE Prophylaxis Ordered?: Yes VS, I&O, 24H, Fishbone Vital Signs/I&O Vital Signs Date Time Temp Pulse Resp B/P (MAP) Pulse Ox O2 Delivery O2 Flow Rate FiO2 08/10/18 09:48 106 138/88 08/10/18 06:00 98.5 18 94 08/09/18 02:55 Room Air I&O- Last 24 Hours up to 6 AM 08/10/18 05:59 Intake Total 1200 ml Output Total 2900 ml Balance -1700 ml Laboratory Data 24H LABS Laboratory Tests 2 08/09/18 17:01: Bedside Glucose (Misc Panel) 88 08/09/18 20:44: Bedside Glucose (Misc Panel) 170H 08/10/18 05:28: Immature Granulocyte % (Auto) 0.3, White Blood Count 7.8, Red Blood Count 2.66L, Hemoglobin 8.9L, Hematocrit 27.0L, Mean Corpuscular Volume 101.5H, Mean Corpuscular Hemoglobin 33.5H, Mean Corpuscular Hemoglobin Concent 33.0, Red Cell Distribution Width 17.7H, Platelet Count 166, Neutrophils (%) (Auto) 66.2H, Lymphocytes (%) (Auto) 17.6L, Monocytes (%) (Auto) 9.8H, Eosinophils (%) (Auto) 5.7H, Basophils (%) (Auto) 0.4, Neutrophils # (Auto) 5.2, Lymphocytes # (Auto) 1.4L, Monocytes # (Auto) 0.8, Eosinophils # (Auto) 0.5, Basophils # (Auto) 0.0, Nucleated Red Blood Cells % (auto) 0.0, Anion Gap 7L, Glomerular Filtration Rate 28.7L, Blood Urea Nitrogen 48H, Creatinine 2.33H, Sodium Level 145, Potassium Level 4.0, Chloride Level 113H, Carbon Dioxide Level 25, Calcium Level 8.5L, Magnesium Level 1.4L, NT-Oby-C-Type Natriuretic Peptide 13615D 08/10/18 11:25: Bedside Glucose (Misc Panel) 182H CBC/BMP Laboratory Tests 08/10/18 05:28 Red Blood Count 2.66 L, Mean Corpuscular Volume 101.5 H, Mean Corpuscular Hemoglobin 33.5 H, Mean Corpuscular Hemoglobin Concent 33.0, Red Cell Di stribution Width 17.7 H, Neutrophils (%) (Auto) 66.2 H, Lymphocytes (%) (Auto) 17.6 L, Monocytes (%) (Auto) 9.8 H, Eosinophils (%) (Auto) 5.7 H, Basophils (%) (Auto) 0.4, Neutrophils # (Auto) 5.2, Lymphocytes # (Auto) 1.4 L, Monocytes # (Auto) 0.8, Eosinophils # (Auto) 0.5, Basophils # (Auto) 0.0, Calcium Level 8.5 L CHRISTIAN BARKER MD Aug 10, 2018 12:44
[2018-08-10 14:00] VITALS: BP 135/85
[2018-08-10 18:00] VITALS: BP 131/78
[2018-08-10] MEDS: ALLOPURINOL 300 MG TAB PO SCH (21:19)
[2018-08-10] MEDS: LISINOPRIL 10 MG TAB PO SCH (21:19)
[2018-08-10] MEDS: SITagliptin 50 MG TAB (JANUVIA) PO SCH (21:20)
[2018-08-10 22:00] VITALS: BP 170/82
[2018-08-11 02:00] VITALS: BP 154/87
[2018-08-11] MEDS: LEVOTHYROXINE 25MCG TABLET (0.025MG) PO SCH (05:54)
[2018-08-11 06:00] VITALS: BP 159/83
[2018-08-11 06:21] LABS: BASO % 0.3 % (0.0-1.0); EOS # 0.5 10^3/uL (0.0-0.50); EOS % 6.5 % (0.0-3.0); HEMATOCRIT 25.8 % (42.0-52.0); HEMOGLOBIN 8.5 g/dl (13.5-17.5); LYMPH # 1.4 10^3/uL (1.5-4.5); LYMPH % 20.9 % (24.0-44.0); MEAN CORPUSCULAR HEMOGLOBIN 33.3 pg (27.0-33.0); MEAN CORPUSCULAR HGB CONC 32.9 g/dl (32.0-36.5); MEAN CORPUSCULAR VOLUME 101.2 fl (80.0-96.0); MONO # 0.7 10^3/uL (0.0-0.8); MONO % 9.4 % (0.0-5.0); NEUTROPHILS # 4.3 10^3/uL (1.8-7.7); NEUTROPHILS % 62.6 % (36.0-66.0); PLATELET COUNT, AUTOMATED 152 10^3/uL (150-450); RED BLOOD COUNT 2.55 10^6/uL (4.30-6.10); WHITE BLOOD COUNT 6.9 10^3/uL (4.0-10.0)
[2018-08-11 06:55] LABS: CALCIUM LEVEL 7.9 MG/DL (8.8-10.2); CREATININE FOR GFR 2.28 MG/DL (0.70-1.30); GLOMERULAR FILTRATION RATE 29.4 (>35); POTASSIUM SERUM 4.1 MEQ/L (3.5-5.1)
[2018-08-11] MEDS: HumaLOG INSULIN (NovoLOG) PER UNIT SC SCH ×2 (07:30→12:00)
[2018-08-11] MEDS ORDERED: TORS20TA2 PO ×2 (08:15)
[2018-08-11] MEDS ORDERED: CARV6.25 PO (08:15)
[2018-08-11] MEDS ORDERED: SITA50TAB PO (08:15)
[2018-08-11 08:41] VITALS: BP 159/83
[2018-08-11] MEDS: ATORVASTATIN 20 MG TAB PO SCH (08:41)
[2018-08-11] MEDS: ASPIRIN 81 MG ENTERIC TAB PO SCH (08:41)
[2018-08-11] MEDS: APIXABAN 2.5 MG TAB (ELIQUIS) PO SCH (08:41)
[2018-08-11] MEDS: FUROSEMIDE 100 MG/10 ML VIAL (J1940) IV SCH (08:41)
[2018-08-11] MEDS: CARVedilol 6.25 MG TAB PO SCH (08:41)
--- NOTE | 2018-08-11 17:21 | DS.PDOC ---
Discharge Summary General Date of Admission Aug 08, 2018 at 23:30 Date of Discharge 08/11/18 Discharge Summary PROCEDURES PERFORMED DURING STAY: [None]. DISCHARGE DIAGNOSES: Acute on chronic Systolic and diastolic CHF exacerbation CARLOS on CKD stage 4 Afib with RVR Hypothyroid Diabetes Gout Dementia COMPLICATIONS/CHIEF COMPLAINT: Aortic Stenosis; Chf. 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 He has had recent admission for similar complaints requiring IV diuresis for a period of time and subsequently went to Rehab. He presented this time also with LE swelling, CH, and also CARLOS on CKD, similar to previous. BNP this time noted to be at 16,000 compare to 8,000 in recent admission. Cr 2.44 from around 2.09 prior. Admitted for CHF exacerbation and CARLOS on CKD. Acute on chronic combine Systolic and Diastolic Heart failure exacerbation torsemide, dose increased 40 in am and 20 in pm if needed. fluid restriction 1300 cc CARLOS on CKD Baseline creatinine around 1.8 to 2.0 due to cardiorenal syndrome. continue diuresis Afib with rvr will increase dose of coreg as rate not well controlled. Eliquis for AC. Hypothyroidism resume home medication. HTN coreg and torsemide and lisinopril monitor potassium History of dementia and delirium with sickness. now at baseline, calm and cooperative, alert and oriented x 3 Diabetes mellitus sugars well controlled on sliding scale lispro Will restart Januvia but at lower dose than at home as GFR < 30 H/o gout on allopurinol. DISCHARGE MEDICATIONS: Please see below. ALLERGIES: Please see below. PHYSICAL EXAMINATION ON DISCHARGE: VITAL SIGNS: Please see below. General Exam: Positive: Alert, Cooperative, No Acute Distress Eye Exam: Positive: PERRLA, Conjunctiva & lids normal, EOMI; Negative: Sclera icteric ENT Exam: Positive: Atraumatic, Mucous membr. moist/pink, Pharynx Normal Neck Exam: Positive: Supple Chest Exam: Positive: Clear to auscultation, Diminished (at the bases) Heart Exam: Positive: Tachycardic, Irregular Rhythm, Normal S1, Normal S2; Negative: Regular Rhythm, Gallops, Murmurs, Rubs Telemetry: Positive: Atrial fibrillation Abdomen Exam: Positive: Normal bowel sounds, Soft; Negative: Tenderness, Hepatospenomegaly Extremity Exam: Positive: Edema Skin Exam: Positive: Nl turgor and temperature; Negative: Rash, Breakdown Neuro Exam: Positive: Normal Speech, Strength at 5/5 X4 ext, Normal Tone LABORATORY DATA: Please see below. ACTIVITY: [As tolerated]. DIET: 2 gm sodium, fluid restriction 1300cc DISPOSITION: Home, Self-Care. DISCHARGE INSTRUCTIONS: PMD in 1 week DISCHARGE CONDITION: [Stable]. TIME SPENT ON DISCHARGE: 40 minutes. Vital Signs/I&Os Vital Signs Date Time Temp Pulse Resp B/P (MAP) Pulse Ox O2 Delivery O2 Flow Rate FiO2 08/11/18 08:41 87 159/83 08/11/18 06:00 97.6 20 96 08/09/18 02:55 Room Air I&O- Last 24 Hours up to 6 AM 08/11/18 06:00 Intake Total 1170 ml Output Total 200 ml Balance 970 ml Laboratory Data Labs 24H Laboratory Tests 2 08/10/18 20:48: Bedside Glucose (Misc Panel) 109 08/11/18 05:38: Immature Granulocyte % (Auto) 0.3, White Blood Count 6.9, Red Blood Count 2.55L, Hemoglobin 8.5L, Hematocrit 25.8L, Mean Corpuscular Volume 101.2H, Mean Rafael uscular Hemoglobin 33.3H, Mean Corpuscular Hemoglobin Concent 32.9, Red Cell Distribution Width 17.5H, Platelet Count 152, Neutrophils (%) (Auto) 62.6, Lymphocytes (%) (Auto) 20.9L, Monocytes (%) (Auto) 9.4H, Eosinophils (%) (Auto) 6.5H, Basophils (%) (Auto) 0.3, Neutrophils # (Auto) 4.3, Lymphocytes # (Auto) 1.4L, Monocytes # (Auto) 0.7, Eosinophils # (Auto) 0.5, Basophils # (Auto) 0.0, Nucleated Red Blood Cells % (auto) 0.0, Anion Gap 7L, Glomerular Filtration Rate 29.4L, Blood Urea Nitrogen 49H, Creatinine 2.28H, Sodium Level 146H, Potassium Level 4.1, Chloride Level 113H, Carbon Dioxide Level 26, Calcium Level 7.9L, OB-Xdw-S-Type Natriuretic Peptide 13782X 08/11/18 11:27: Bedside Glucose (Misc Panel) 129H CBC/BMP Laboratory Tests 08/11/18 05:38 Red Blood Count 2.55 L, Mean Corpuscular Volume 101.2 H, Mean Corpuscular Hemoglobin 33.3 H, Mean Corpuscular Hemoglobin Concent 32.9, Red Cell Distribution Width 17.5 H, Neutrophils (%) (Auto) 62.6, Lymphocytes (%) (Auto) 20.9 L, Monocytes (%) (Auto) 9.4 H, Eosinophils (%) (Auto) 6.5 H, Basophils (%) (Auto) 0.3, Neutrophils # (Auto) 4.3, Lymphocytes # (Auto) 1.4 L, Monocytes # (Auto) 0.7, Eosinophils # (Auto) 0.5, Basophils # (Auto) 0.0, Calcium Level 7.9 L FSBS Laboratory Tests Test 08/10/18 20:48 08/11/18 11:27 Range/Units Bedside Glucose (Misc Panel) 109 129 83-110 MG/DL Discharge Medications Scheduled Allopurinol (Zyloprim) 300 Mg Tab, 300 MG PO QPM, (Reported) Apixaban (Eliquis) 2.5 Mg Tab, 2.5 MG PO BID, (Reported) Aspirin (Aspirin EC) 81 Mg Tab, 81 MG PO DAILY, (Reported) Atorvastatin Calcium (Atorvastatin Calcium) 40 Mg Tab, 40 MG PO DAILY, (Reported) Carvedilol (Carvedilol) 6.25 Mg Tablet, 12.5 MG PO BID Levothyroxine Sodium (Synthroid) 25 Mcg Tab, 25 MCG PO DAILY, (Reported) Lisinopril (Lisinopril) 10 Mg Tablet, 10 MG PO QHS, (Reported) Sitagliptin (Januvia) 50 Mg Tablet, 25 MG PO QPM Spironolactone (Spironolactone) 25 Mg Tablet, 12.5 MG PO DAILY, (Reported) Torsemide (Torsemide) 20 Mg Tab, 30 MG PO DAILY, (Reported) Torsemide (Torsemide) 20 Mg Tablet, 40 MG PO DAILY Torsemide (Torsemide) 20 Mg Tablet, 20 MG PO QPM Take prn at 4 pm if leg swelling increases Scheduled PRN Acetaminophen (Acetaminophen) 325 Mg Tablet, 650 MG PO Q4H PRN for PAIN, (Reported) Allergies Coded Allergies: NSAIDS (Non-Steroidal Anti-Inflamma (Verified Allergy, Unknown, 08/09/18) Penicillins (Verified Allergy, Unknown, 08/09/18) CHRISTIAN BARKER MD Aug 11, 2018 17:21
== END 2018-08-11 13:20 | disposition home health service (06) | DRG 291 ==
LOC: M ED 16:07 → M ED INP 23:30 → M MSPAV 08-09 13:49
PROVIDERS: ADMIT Student in an Organized Health Care Education/Training Program; ATTEND Internal Medicine Nephrology
DX: I13.0 Hypertensive heart and chronic kidney disease with heart failure and stage 1 through stage 4 chronic kidney disease, or unspecified chronic kidney disease (principal); I50.43 Acute on chronic combined systolic (congestive) and diastolic (congestive) heart failure; N17.9 Acute kidney failure, unspecified; N18.4 Chronic kidney disease, stage 4 (severe); I48.91 Unspecified atrial fibrillation; E03.9 Hypothyroidism, unspecified; E11.22 Type 2 diabetes mellitus with diabetic chronic kidney disease; M10.9 Gout, unspecified; Z66 Do not resuscitate; F03.90 Unspecified dementia, unspecified severity, without behavioral disturbance, psychotic disturbance, mood disturbance, and anxiety; Z95.2 Presence of prosthetic heart valve; Z79.01 Long term (current) use of anticoagulants; Z87.891 Personal history of nicotine dependence; Z79.899 Other long term (current) drug therapy; Z79.82 Long term (current) use of aspirin; Z88.0 Allergy status to penicillin; Z88.6 Allergy status to analgesic agent; Z79.84 Long term (current) use of oral hypoglycemic drugs

== ENCOUNTER → 2019-01-09 | Outpatient (REF) | payer MEDICARE, OTHER ==
[~2019-01-09] MED LIST changes: +NON-325T5 PO; +SPIR-10 PO
[2019-01-09 18:29] LABS: FERRITIN 143 NG/ML (26-388); IRON (FE) 48 UG/DL (65-175); PERCENT SATURATION 21.6 % (19.7-50.0); TOTAL IRON BINDING CAPACITY 222 UG/DL (250-450)
[2019-01-09 18:34] LABS: FOLATE > 24.0 NG/ML; VITAMIN B12 LEVEL 386 PG/ML
[2019-01-10 14:22] LABS: COMPLEMENT C3 116 MG/DL (90-180); COMPLEMENT C4 29 MG/DL (10-40); TOTAL PROTEIN 5.9 GM/DL (6.4-8.2)
[2019-01-11 09:39] LABS: ALBUMIN 2.93 GM/DL (3.29-5.55); ALBUMIN % 49.7 % (55.8-66.1); ALPHA-1-GLOBULIN % 7.3 % (2.9-4.9); ALPHA-1-GLOBULINS 0.43 GM/DL (0.17-0.41); ALPHA-2-GLOBULINS 0.86 GM/DL (0.42-0.99); ALPHA-2-GLOBULINS % 14.5 % (7.1-11.8); BETA-1-GLOBULINS 0.37 GM/DL (0.28-0.60); BETA-1-GLOBULINS % 6.2 % (4.7-7.2); BETA-2-GLOBULINS 0.47 GM/DL (0.19-0.55); BETA-2-GLOBULINS % 7.9 % (3.2-6.5); GAMMA GLOBULIN % 14.4 % (11.1-18.8); GAMMA GLOBULINS 0.85 GM/DL (0.65-1.58)
[2019-01-11 11:14] LABS: UPEP INTERPRETATION NO M-SPIKE NOTED; URINE VOLUME RANDOM ML
== END ==
LOC: M LAB REF 16:48
PROVIDERS: ATTEND Internal Medicine Nephrology
DX: D64.9 Anemia, unspecified (principal)

== ENCOUNTER → 2019-01-10 | Outpatient (REF) | payer MEDICARE, OTHER | LOC: M LAB REF 13:13 | PROVIDERS: ATTEND Internal Medicine Nephrology | DX: R80.9 Proteinuria, unspecified (principal) ==

== ENCOUNTER 2019-11-30 14:47 | Inpatient (IN) | payer MEDICARE, OTHER ==
[~2019-11-30] VITALS: Ht 177.8 cm; Wt 81.5 kg
[2019-11-30] MEDS ORDERED: NS 1,000 ML IV SCH (14:52)
[2019-11-30] MEDS ORDERED: IPRATROPIUM 0.5MG/ALBUTEROL 2.5MG INH SOL UD 3ML (DUONEB) NEB ONE (15:00)
[2019-11-30 15:10] LABS: BASO % 0.3 % (0.0-1.0); EOS # 0.5 10^3/uL (0.0-0.5); EOS % 5.2 % (0.0-3.0); HEMATOCRIT 38.3 % (42.0-52.0); HEMOGLOBIN 12.3 g/dl (13.5-17.5); LYMPH # 1.3 10^3/uL (1.5-5.0); LYMPH % 12.6 % (24.0-44.0); MEAN CORPUSCULAR HEMOGLOBIN 33.3 pg (27.0-33.0); MEAN CORPUSCULAR HGB CONC 32.1 g/dl (32.0-36.5); MEAN CORPUSCULAR VOLUME 103.8 fl (80.0-96.0); MONO # 0.5 10^3/uL (0.0-0.8); MONO % 5.1 % (0.0-5.0); NEUTROPHILS % 76.5 % (36.0-66.0); PLATELET COUNT, AUTOMATED 144 10^3/uL (150-450); RED BLOOD COUNT 3.69 10^6/uL (4.30-6.10); WHITE BLOOD COUNT 10.5 10^3/uL (4.0-10.0)
[2019-11-30 15:21] LABS: INR 1.11; PROTHROMBIN TIME 14.6 SECONDS (12.5-14.3)
--- NOTE | 2019-11-30 15:21 | REPVR ---
PROCEDURE INFORMATION: Exam: CT Head Without Contrast Exam date and time: 11/30/2019 3:11 PM Age: 84 years old Clinical indication: Injury or trauma; Fall; Initial encounter; Blunt trauma (contusions or hematomas) TECHNIQUE: Imaging protocol: Computed tomography of the head without contrast. Radiation optimization: All CT scans at this facility use at least one of these dose optimization techniques: automated exposure control; mA and/or kV adjustment per patient size (includes targeted exams where dose is matched to clinical indication); or iterative reconstruction. COMPARISON: No relevant prior studies available. FINDINGS: Brain: There is no acute cortical infarction, intracranial hemorrhage or mass. Prior small right occipital infarction. Mild prominence of the extra-axial spaces overlying both cerebral hemispheres. Cerebral ventricles: The ventricles appear mildly enlarged, but not out of proportion to the degree of parenchymal volume loss. Bones/joints: Unremarkable. No acute fracture. Paranasal sinuses: There is no significant mucoperiosteal thickening or air-fluid levels in the paranasal sinuses. Mastoid air cells: The middle ear cavities and mastoid air cells are clear. Vasculature: Atherosclerosis. Soft tissues: Unremarkable. IMPRESSION: No acute intracranial findings. Electronically signed by: Fabiola Harris On 11/30/2019 15:21:41 PM
--- NOTE | 2019-11-30 15:23 | REPVR ---
PROCEDURE INFORMATION: Exam: XR Chest, 1 View Exam date and time: 11/30/2019 2:52 PM Age: 84 years old Clinical indication: Chest pain TECHNIQUE: Imaging protocol: XR of the chest Views: 1 view. COMPARISON: CT Chest without contrast 08/08/2018 6:28 PM FINDINGS: Lungs: Hyperinflation without consolidation. Pleural space: Unremarkable. No pleural effusion. No pneumothorax. Heart/Mediastinum: Unremarkable. No cardiomegaly. Bones/joints: Skeletal degeneration. IMPRESSION: No acute findings. Electronically signed by: Fabiola Harris On 11/30/2019 15:22:37 PM
[2019-11-30 15:26] LABS: ABG BASE EXCESS -6.6 (-2.0-2.0); ABG HCO3 17.2 MEQ/L (22.0-26.0); ABG O2 SATURATION 99.2 % (95.0-99.0); ABG PARTIAL PRESSURE CO2 29.6 mmHg (35.0-45.0); ABG STANDARD HCO3 19.1 MEQ/L (22.0-26.0); ABG TOTAL CO2 18.1 MEQ/L (23.0-31.0); ABG pH (ARTERIAL) 7.383 UNITS (7.350-7.450)
[2019-11-30 15:38] LABS: ALBUMIN 3.3 GM/DL (3.2-5.2); ALT/SGPT 28 U/L (12-78); BILIRUBIN,DIRECT 0.1 MG/DL (0.0-0.2); BILIRUBIN,TOTAL 0.5 MG/DL (0.2-1.0); BLOOD UREA NITROGEN 88 MG/DL (7-18); CALCIUM LEVEL 9.1 MG/DL (8.8-10.2); CARBON DIOXIDE LEVEL 24 MEQ/L (21-32); CHLORIDE LEVEL 108 MEQ/L (98-107); CK-MB VALUE MASS 1.9 NG/ML (<3.6); CPK CREATINE PHOSPHOKINASE 36 U/L (39-308); CREATININE FOR GFR 3.23 MG/DL (0.70-1.30); GLOMERULAR FILTRATION RATE 19.6 (>35); GLUCOSE, FASTING 123 MG/DL (70-100); LIPASE 390 U/L (73-393); MB/CK RELATIVE INDEX 5.28 (< OR =4); NT-PRO BNP 5057 PG/ML (<450); POTASSIUM SERUM 5.3 MEQ/L (3.5-5.1); SODIUM LEVEL 142 MEQ/L (136-145); TOTAL PROTEIN 6.7 GM/DL (6.4-8.2); TROPONIN I < 0.02 NG/ML (< 0.10)
[2019-11-30] MEDS ORDERED: CIPR500T3 PO (16:08)
--- NOTE | 2019-11-30 16:11 | HPEPDOC ---
[facility] Medical History & Physical Date of Admission Nov 30, 2019 Date of Service: Nov 30, 2019 Attending Physician: Ange Calloway MD History and Physical CHIEF COMPLAINT: weakness HISTORY OF PRESENT ILLNESS: The patient is an 84-year-old male with past medical history of aortic stenosis status post transcatheter aortic valve replacement, diastolic congestive heart failure, atrial fibrillation on anticoagulation, hypothyroidism, history of CVA, diabetes mellitus type 2, hypertension, CKD stage III presented to [facility] emergency room after being sent from his primary care provider's office for concerns of increased weakness and recent fall. The patient states that 2 weeks ago he had a fall at home where he hit his head on the way down. He had an unknown amount of time of loss of consciousness. He states he didn't take his medications that day and he's had loss of consciousness in the past when he hasn't taken his home meds. Patient's episode was not witness but he states when he woke up, he did not have loss of bowel or bladder, denies tongue biting, post-ictal phase. He admits to some dizziness before. He did not report the incident then but today mentioned it to his primary care provider who was concerned and sent him to the emergency room for further evaluation. The patient admits to increased weakness, lethargy, decreased appetite, lightheadedness, dizziness occasionally, unsteadiness on his feet. He denies chest pain, diarrhea, abdominal pain, change in his home meds recently, fevers, chills, recent travel, recent illness or hospitalization. In the emergency room, vital signs were stable. ECG appeared abnormal in atrial fibrillation with apparent conduction, similar to last ECG on file. CBC was unremarkable outside of some thrombocytopenia with platelets of 144. Potassium high at 5.3, creatinine was markedly elevated from baseline at 3.23 (baseline creatinine 2.12.4). Troponin was negative, BNP 5057 (last BNP on file was >16K in 2019). Chest x-ray was unremarkable. The patient was admitted as acute inpatient for acute renal failure on chronic kidney disease stage III, weakness. REVIEW OF SYSTEMS: CONSTITUTIONAL: Denies unexplained weight gain or weight loss, fever, night sweats EYES: Denies eye drainage, eye pain, visual changes, dry/irritated eye EARS, NOSE, MOUTH, THROAT: Denies ringing in ears, mouth sores, loose teeth, sore throat, facial numbness or pain NECK: Denies swollen glands CARDIOVASCULAR: Denies racing heart, swelling of feet or legs, pain in legs with walking RESPIRATORY: Denies night sweats, wheezing, sputum production, oxygen at home, coughing up blood, cough lasting > 1 month GASTROINTESTINAL: Denies abdominal pain, constipation, bloody stool, diarrhea, heartburn, nausea, vomiting GENITOURINARY: Denies painful urination, bloody urine, frequent urination, urgency, leaking urine, impotence MUSCULOSKELETAL: Denies joint pain, muscle pain, leg swelling INTEGUMENTARY: Denies rash, itching, new skin lesion, change in existing skin lesion, hair loss or increase, breast changes. NEUROLOGICAL: Denies headaches,numbness or tingling PSYCHIATRIC: Denies depression, anxiety, recurrent bad thoughts, mood swings, hallucinations PAST MEDICAL HISTORY: 1. Aortic stenosis and with recent transcatheter aortic heart valve replacement. 2. Diastolic congestive heart failure. 3. Atrial fibrillation on chronic anticoagulation. 4. Hypothyroidism 5. History of cerebral vascular accident. 6. Diabetes mellitus type 2 7. HTN 8. CKD Stage III 9. Severe pulmonary HTN 10. GEETA noncompliant 11. Polycystic kidney disease 12. Iron deficiency anemia PAST SURGICAL HISTORY: 1. TAVR 05/2018 2. hernia repari 3. neck cyst removal SOCIAL HISTORY: Former smoker for 20 years, 1- 03/08 PPD. Quit 60 years ago. Denies alcohol use, illicit drug use. Cardiology- Dr. Ward, [employer]- Dr. Dow. Uses walker at baseline, lives with FAMILY HISTORY: Mother: CAD. in 70's Father: CAD. in 70's ALLERGIES: Please see below. HOME MEDICATIONS: Please see below. PHYSICAL EXAMINATION: CONSTITUTIONAL: No acute distress, resting comfortably, AAO x 3 EYES: PERRLA, EOM intact HENT, MOUTH: Normocephalic, atraumatic, moist mucous membranes NECK: SUPPLE, no JVD, no lymphadenopathy, no carotid bruit CV: Regular rate and rhythm, S1S2 normal, no murmurs/rubs/gallops RESPIRATORY: Clear to auscultation bilaterally, no rales/rhonchi/wheezes GI: BS positive in 4 quadrants, soft, nontender, nondistended, no rebound or guarding, no organomegaly : Deferred MUSCULOSKELETAL: Normal ROM. No cyanosis, clubbing, swelling, joint deformity, extremity edema INTEGUMENTARY: Intact, no rashes, no lesions, no erythema NEUROLOGIC: Cranial Nerves II-XII are intact, no focal deficits PSYCHIATRIC: Mood and affect are normal LABORATORY DATA: Please see below IMAGING: CXR: No acute findings CT head: No acute findings ASSESSMENT: 84-year-old male with past medical history of aortic stenosis status post transcatheter aortic valve replacement, diastolic congestive heart failure, atrial fibrillation on anticoagulation, hypothyroidism, history of CVA, diabetes mellitus type 2, hypertension, CKD stage III admitted for admitted for acute renal failure on chronic kidney disease stage III, weakness. PLAN: 1. Acute kidney injury on chronic kidney disease Stage III likely 2/2 to medication (torsemide), dehydration -Hx of polycystic kidney disease also -Cr 3.23, baseline in system 2.1-2.4 -Nephrology consulted and discussed case with Dr. Dow over the phone. Holding diuretics until nephrology assess in the AM. -At this time, we are not starting IVFs. 2. Syncope (cardiac vs. neurological?) -Episode happened several weeks ago so it is hard to say cause. With poor PO intake, cannot r/o orthostatic hypotension, vasovagal episode. -CT head above, no deficits -Patient has known atrial fib with PVCs; however, it is rate controlled currently -Discussed case with Dr. Ward, cardiology. Echo from 2019 showed preserved EF, severe pulmn HTN, which he believes is likely cause. -Per cardiology, no need for repeat Echo, monitor on tele. 3. Weakness, lethargy possibly 2/2 to CARLOS on CKD -F/u with treatment plan under problem #1 -PT/OT, nutrition evaluation 4. Severe pulmonary HTN, diastolic CHF (EF 45-50%)- end stage cor pulmonale likely 2/2 to uncontrolled GEETA, valvular disorder -BNP 5K, chronically elevated at this level, no signs of fluid overload. -Trop neg -Echo 2019: Severe pulmonary HTN, right heart failure -Discussed with cardiology, no new echo and no new cardiology workup needed -Will restart diuretics when ok by nephrology. C/w BB 5. Aortic stenosis s/p TAVR -Holding diuretics -C/w other cardiac meds 6. Hyperkalemia, acute likely 2/2 to CARLOS on CKD -No ECG changes -F/u AM labs 7. Atrial fibrillation on AC -Rate controlled, many PVCs -C/w BB, Eliquis 8. GEETA -Noncompliant with home CPAP 9. Hypothyroidism -TSH from 2019 minimally elevated -F/u new TSH 10. DM type II -Not on home medications. -Consistent carb diet -F/u HbA1c, lipid panel -Holding off on ISS, FS 11. HTN -Stable. -C/w BB, holding diuretics 12. BPH -C/w home med 13. DVT px. -Eliquis DISPOSITION: Admitted as acute inpatient. Discussed case in detail with Dr. Ward (cardiology) and Nephrology (Dr. Dow) consulted. Plan is discharge home when medically improved. Vital Signs Vital Signs Date Time Temp Pulse Resp B/P (MAP) Pulse Ox O2 Delivery O2 Flow Rate FiO2 11/30/19 15:15 119/66 (83) 11/30/19 15:11 96.2 90 19 98 Room Air Laboratory Data Labs 24H Laboratory Tests 2 11/30/19 14:56: POC Troponin I (Misc) 0.02 11/30/19 14:59: Immature Granulocyte % (Auto) 0.3, Neutrophils (%) (Auto) 76.5H, Lymphocytes (%) (Auto) 12.6L, Monocytes (%) (Auto) 5.1H, Eosinophils (%) (Auto) 5.2H, Basophils (%) (Auto) 0.3, Neutrophils # (Auto) 8.0, Lymphocytes # (Auto) 1.3L, Monocytes # (Auto) 0.5, Eosinophils # (Auto) 0.5, Basophils # (Auto) 0.0, Nucleated Red Blood Cells % (auto) 0.0, Prothrombin Time 14.6H, Prothromb Time International Ratio 1.11, Anion Gap 10, Glomerular Filtration Rate 19.6L, Calcium Level 9.1, Total Bilirubin 0.5, Direct Bilirubin 0.1, Aspartate Amino Transf (AST/SGOT) 16, Alanine Aminotransferase (ALT/SGPT) 28, Alkaline Phosphatase 132H, Total Creatine Kinase 36L, Creatine Kinase MB 1.9, Creatine Kinase MB Relative Index 5.28H, Troponin I < 0.02, HU-Fux-A-Type Natriuretic Peptide 5057H, Total Protein 6.7, Albumin 3.3, Albumin/Globulin Ratio 1.0, Lipase 390 11/30/19 15:13: Blood Gas Bicarbonate Standard 19.1L, Arterial Blood pH 7.383, Arterial Blood Partial Pressure CO2 29.6L, Arterial Blood Partial Pressure O2 157.0H, Arterial Blood Total CO2 18.1L, Arterial Blood HCO3 17.2L, Arterial Blood Base Excess - 6.6L, Arterial Blood Oxygen Saturation 99.2H CBC/BMP Laboratory Tests 11/30/19 14:59 Home Medications Scheduled Allopurinol (Zyloprim) 300 Mg Tab, 300 MG PO QPM Apixaban (Eliquis) 2.5 Mg Tab, 2.5 MG PO BID Aspirin (Aspirin EC) 81 Mg Tab, 81 MG PO DAILY Atorvastatin Calcium (Atorvastatin Calcium) 40 Mg Tab, 40 MG PO DAILY Carvedilol (Carvedilol) 6.25 Mg Tablet, 12.5 MG PO BID Levothyroxine Sodium (Synthroid) 25 Mcg Tab, 25 MCG PO DAILY Lisinopril (Lisinopril) 10 Mg Tablet, 10 MG PO QHS Sitagliptin (Januvia) 50 Mg Tablet, 25 MG PO QPM Spironolactone (Spironolactone) 25 Mg Tablet, 12.5 MG PO DAILY Torsemide (Torsemide) 20 Mg Tab, 30 MG PO DAILY Torsemide (Torsemide) 20 Mg Tablet, 40 MG PO DAILY Torsemide (Torsemide) 20 Mg Tablet, 20 MG PO QPM Take prn at 4 pm if leg swelling increases Scheduled PRN Acetaminophen (Acetaminophen) 325 Mg Tablet, 650 MG PO Q4H PRN for PAIN Allergies Coded Allergies: NSAIDS (Non-Steroidal Anti-Inflamma (Verified Allergy, Unknown, 08/09/18) Penicillins (Verified Allergy, Unknown, 08/09/18) A-FIB/CHADSVASC A-FIB History Current/History of A-Fib/PAF?: Yes Current PO Anticoag Therapy: Yes Age/Risk Factor Scoring CHADSVASC: CHADSVASC Response (Comments) Value Age Risk Factor Age >/= 75 years old 2 Gender Risk Factor Male 0 Hx of CHF Yes 1 Hx of HTN Yes 1 Hx of Stroke/TIA/or VTE No 0 Hx of Diabetes Yes 1 Hx of Vascular Disease No 0 Total 5 Treatment Treatment ordered: Ange Edmond MD Nov 30, 2019 16:11
[2019-11-30] MEDS ORDERED: TORS20TA2 PO (16:50)
[2019-11-30] MEDS ORDERED: CARV12.5 PO (16:50)
[2019-11-30] MEDS ORDERED: FLOM0.4C39 PO (16:50)
[2019-11-30 17:29] VITALS: BP 134/78
[2019-11-30] MEDS ORDERED: ACETAMINOPHEN 325 MG TAB PO PRN (17:30)
[2019-11-30 21:00] VITALS: BP_SYST 110; BP_SYST 130; BP_SYST 132; BP_DIAS 60; BP_DIAS 81
[2019-11-30] MEDS: CARVedilol 12.5 MG TAB PO SCH ×2 (21:00→21:24)
[2019-11-30] MEDS: TAMSULOSIN 0.4 MG CAP PO SCH (21:04)
[2019-11-30] MEDS: APIXABAN 2.5 MG TAB (ELIQUIS) PO SCH (21:04)
[2019-11-30 22:00] VITALS: BP 132/74
[2019-12-01] MEDS: LEVOTHYROXINE 25MCG TABLET (0.025MG) PO SCH (05:57)
[2019-12-01 06:00] VITALS: BP 142/75
[2019-12-01 06:33] LABS: HEMATOCRIT 34.8 % (42.0-52.0); HEMOGLOBIN 11.5 g/dl (13.5-17.5); MEAN CORPUSCULAR HEMOGLOBIN 33.9 pg (27.0-33.0); MEAN CORPUSCULAR VOLUME 102.7 fl (80.0-96.0); PLATELET COUNT, AUTOMATED 143 10^3/uL (150-450); RED BLOOD COUNT 3.39 10^6/uL (4.30-6.10); WHITE BLOOD COUNT 7.6 10^3/uL (4.0-10.0)
[2019-12-01 06:53] LABS: HEMOGLOBIN A1c 6.1 %
[2019-12-01 07:04] LABS: ALBUMIN 2.8 GM/DL (3.2-5.2); BILIRUBIN,TOTAL 0.4 MG/DL (0.2-1.0); CALCIUM LEVEL 8.6 MG/DL (8.8-10.2); CHOLESTEROL RISK RATIO 3.766 (<5); CREATININE FOR GFR 2.87 MG/DL (0.70-1.30); GLOMERULAR FILTRATION RATE 22.4 (>35); POTASSIUM SERUM 5.1 MEQ/L (3.5-5.1); THYROID STIMULATING HORMONE 1.43 uIU/ML (0.358-3.740); TOTAL PROTEIN 5.8 GM/DL (6.4-8.2)
[2019-12-01 07:26] LABS: MAGNESIUM LEVEL 2.1 MG/DL (1.8-2.4); PHOSPHORUS LEVEL 4.5 MG/DL (2.5-4.9)
[2019-12-01] MEDS: APIXABAN 2.5 MG TAB (ELIQUIS) PO SCH ×2 (08:46→20:45)
[2019-12-01] MEDS: ASPIRIN 81 MG ENTERIC TAB PO SCH (08:46)
[2019-12-01] MEDS: ATORVASTATIN 20 MG TAB PO SCH (08:46)
[2019-12-01] MEDS: CARVedilol 12.5 MG TAB PO SCH ×2 (08:53→20:46)
[2019-12-01] MEDS: predniSONE 20 MG TAB PO SCH (13:19)
[2019-12-01 14:00] VITALS: BP 101/63
[2019-12-01] MEDS: IPRATROPIUM 0.5MG/ALBUTEROL 2.5MG INH SOL UD 3ML (DUONEB) NEB SCH ×2 (14:01→19:10)
[2019-12-01 14:35] VITALS: BP_SYST 106; BP_SYST 107; BP_SYST 110; BP_DIAS 62; BP_DIAS 64
--- NOTE | 2019-12-01 16:17 | IPNPDOC ---
Date Seen The patient was seen on 12/01/19. Progress Note SUBJECTIVE: Evaluated by nephrology who is avoiding fluid also, continuing to hold diuretics for another 24-48 hours. Cr slightly improved to 2.87 from 3.23. U/O good. One positive orthostatic test, one neg. Will encourage PT/OT to evaluate. Denies chest pain, n/v/d, fevers, lightheadedness, dizziness. OBJECTIVE PHYSICAL EXAMINATION: CONSTITUTIONAL: No acute distress, resting comfortably, AAO x 3 EYES: PERRLA, EOM intact HENT, MOUTH: Normocephalic, atraumatic, moist mucous membranes NECK: SUPPLE, no JVD, no lymphadenopathy, no carotid bruit CV: Regular rate and rhythm, S1S2 normal, no murmurs/rubs/gallops RESPIRATORY: Clear to auscultation bilaterally, no rales/rhonchi/wheezes GI: BS positive in 4 quadrants, soft, nontender, nondistended, no rebound or guarding, no organomegaly : Deferred MUSCULOSKELETAL: Normal ROM. No cyanosis, clubbing, swelling, joint deformity, extremity edema INTEGUMENTARY: Intact, no rashes, no lesions, no erythema NEUROLOGIC: Cranial Nerves II-XII are intact, no focal deficits PSYCHIATRIC: Mood and affect are normal LABORATORY DATA: Please see below IMAGING: CXR: No acute findings CT head: No acute findings ASSESSMENT: 84-year-old male with past medical history of aortic stenosis status post transcatheter aortic valve replacement, diastolic congestive heart failure, atrial fibrillation on anticoagulation, hypothyroidism, history of CVA, diabetes mellitus type 2, hypertension, CKD stage III admitted for admitted for acute renal failure on chronic kidney disease stage III, weakness. PLAN: 1. Acute kidney injury on chronic kidney disease Stage III likely 2/2 to medication (torsemide), dehydration -Hx of polycystic kidney disease also -Cr improved slightly to 2.8 from 3.23 (baseline in system 2.1-2.4). Received IVFs in ER prior to admission. -Nephrology (Dr. Dow) consulted and will follow. Continue to hold diuretics for another 24-48 hrs per their recommendation, holding off on additional fluid administration due to severe pulm HTN and CHF. 2. Syncope likely 2/2 to severe pulmonary HTN, orthostatic hypotension -No cardiac events on tele overnight. Atrial fib rate controlled with PVCs -CT head above, no deficits -Discussed case with Dr. Ward, cardiology. Echo from 2019 showed preserved EF, severe pulmn HTN, which he believes is likely cause. -Per cardiology, no need for repeat Echo, monitor on tele. 3. Weakness, lethargy possibly 2/2 to CARLOS on CKD -F/u with treatment plan under problem #1 -PT/OT: cleared for home, nutrition evaluation 4. Severe pulmonary HTN, diastolic CHF (EF 45-50%)- end stage cor pulmonale likely 2/2 to uncontrolled GEETA, valvular disorder -BNP 5K, chronically elevated at this level, no signs of fluid overload. -Trop neg -Echo 2019: Severe pulmonary HTN, right heart failure -Discussed with cardiology, no new echo and no new cardiology workup needed -Will restart diuretics when ok by nephrology. C/w BB 5. Aortic stenosis s/p TAVR -Holding diuretics -C/w other cardiac meds 6. Hyperkalemia, acute likely 2/2 to CARLOS on CKD -No ECG changes -F/u AM labs 7. Atrial fibrillation on AC -Rate controlled, many PVCs -C/w BB, Eliquis 8. GEETA -Noncompliant with home CPAP 9. Hypothyroidism -TSH from 2019 minimally elevated -F/u new TSH 10. DM type II -Not on home medications. -Consistent carb diet -F/u HbA1c, lipid panel -Holding off on ISS, FS 11. HTN -Stable. -C/w BB, holding diuretics 12. BPH -C/w home med 13. DVT px. -Eliquis DISPOSITION: Admitted as acute inpatient. Discussed case in detail with Dr. Ward (cardiology) and Nephrology (Dr. Dow) consulted. Plan is discharge home when medically improved. VS, I&O, 24H, Fishbone Vital Signs/I&O Vital Signs Date Time Temp Pulse Resp B/P (MAP) Pulse Ox O2 Delivery O2 Flow Rate FiO2 12/01/19 14:35 70 106/64 (78) 74 107/62 (77) 69 110/62 (78) 12/01/19 14:00 97.8 18 98 Room Air I&O- Last 24 Hours up to 6 AM 12/01/19 06:00 Intake Total 930 ml Output Total 350 ml Balance 580 ml Laboratory Data 24H LABS Laboratory Tests 2 12/01/19 01:25: Urine Color YELLOW, Urine Appearance HAZY, Urine pH 5.0, Urine Specific [place] 1.012, Urine Protein 2+H, Urine Glucose (UA) 2+H, Urine Ketones NEGATIVE, Urine Blood NEGATIVE, Urine Nitrite NEGATIVE, Urine Bilirubin NEGATIVE, Urine Urobilinogen 0.2, Urine Leukocyte Esterase NEGATIVE, Urine WBC (Auto) 2, Urine RBC (Auto) 1, Urine Hyaline Casts (Auto) 9, Urine Bacteria (Auto) NEGATIVE, Urine Squamous Epithelial Cells 0, Urine Mucus (Auto) SMALL, Urine Sperm (Auto) 12/01/19 06:02: Nucleated Red Blood Cells % (auto) 0.0, Anion Gap 9, Glomerular Filtration Rate 22.4L, Estimated Mean Plasma Glucose 128H, Hemoglobin A1c 6.1, Calcium Level 8 .6L, Phosphorus Level 4.5, Magnesium Level 2.1, Total Bilirubin 0.4, Aspartate Amino Transf (AST/SGOT) 11, Alanine Aminotransferase (ALT/SGPT) 24, Alkaline Phosphatase 120H, Total Protein 5.8L, Albumin 2.8L, Albumin/Globulin Ratio 0.9, Triglycerides Level 120, Total Cholesterol 113, LDL Cholesterol 59, Non-HDL Cholesterol (LDL + VLDL) 83, Total HDL Cholesterol 30L, Cholesterol/HDL Ratio 3.766, Thyroid Stimulating Hormone (TSH) 1.430 CBC/BMP Laboratory Tests 12/01/19 06:02 Current Medications Current Medications Medications (Trade) Dose Ordered Sig/Adelfo Route PRN Reason Start Time Stop Time Status Last Admin Dose Admin Acetaminophen (Tylenol Tab) 650 mg Q4H PRN PO PAIN 11/30/19 17:30 Albuterol/ Ipratropium (Duoneb (Ipr 0.5mg/Alb 2.5mg)) 3 ml RQ6H NEB 12/01/19 14:00 12/03/19 13:59 12/01/19 14:01 Apixaban (Eliquis) 2.5 mg BID PO 11/30/19 21:00 12/01/19 08:46 Aspirin (Ecotrin) 81 mg DAILY PO 12/01/19 09:00 12/01/19 08:46 Atorvastatin Calcium (Lipitor) 40 mg DAILY PO 12/01/19 09:00 12/01/19 08:46 Carvedilol (COReg) 12.5 mg BID PO 11/30/19 21:00 11/30/19 21:24 Home Med (Med Rec Complete!) ASDIRECTED XX 11/30/19 17:00 11/30/19 16:51 DC Levothyroxine Sodium (Synthroid) 25 mcg DAILY@0600 PO 12/01/19 06:00 12/01/19 05:57 Prednisone (Deltasone) 40 mg DAILY PO 12/01/19 13:00 12/06/19 12:59 12/01/19 13:19 Sodium Chloride 1,000 ml @ 100 mls/hr Q10H IV 11/30/19 14:52 11/30/19 17:30 DC 11/30/19 15:17 Tamsulosin HCl (Flomax) 0.4 mg QHS PO 11/30/19 21:00 11/30/19 21:04 Allergies Coded Allergies: NSAIDS (Non-Steroidal Anti-Inflamma (Unverified Allergy, Unknown, 11/30/19) TAKE ASPIRIN AT HOME: NOT A CLASS ALLERGY Penicillins (Verified Allergy, Unknown, 08/09/18) Ange Calloway MD Dec 01, 2019 16:17
[2019-12-01] MEDS: TAMSULOSIN 0.4 MG CAP PO SCH (20:46)
[2019-12-01 22:00] VITALS: BP 134/72
[2019-12-02] MEDS: IPRATROPIUM 0.5MG/ALBUTEROL 2.5MG INH SOL UD 3ML (DUONEB) NEB SCH ×3 (03:43→15:32)
[2019-12-02] MEDS: LEVOTHYROXINE 25MCG TABLET (0.025MG) PO SCH (05:48)
[2019-12-02 06:00] VITALS: BP 143/87
[2019-12-02 06:18] LABS: HEMATOCRIT 35.9 % (42.0-52.0); HEMOGLOBIN 12.1 g/dl (13.5-17.5); MEAN CORPUSCULAR HEMOGLOBIN 34.5 pg (27.0-33.0); MEAN CORPUSCULAR HGB CONC 33.7 g/dl (32.0-36.5); MEAN CORPUSCULAR VOLUME 102.3 fl (80.0-96.0); PLATELET COUNT, AUTOMATED 150 10^3/uL (150-450); RED BLOOD COUNT 3.51 10^6/uL (4.30-6.10); WHITE BLOOD COUNT 7.6 10^3/uL (4.0-10.0)
[2019-12-02 06:40] LABS: ALBUMIN 2.9 GM/DL (3.2-5.2); BILIRUBIN,TOTAL 0.3 MG/DL (0.2-1.0); CALCIUM LEVEL 8.7 MG/DL (8.8-10.2); CREATININE FOR GFR 2.92 MG/DL (0.70-1.30); POTASSIUM SERUM 5.2 MEQ/L (3.5-5.1); TOTAL PROTEIN 6.3 GM/DL (6.4-8.2)
[2019-12-02] MEDS: ASPIRIN 81 MG ENTERIC TAB PO SCH (08:05)
[2019-12-02] MEDS: APIXABAN 2.5 MG TAB (ELIQUIS) PO SCH (08:05)
[2019-12-02] MEDS: ATORVASTATIN 20 MG TAB PO SCH (08:05)
[2019-12-02] MEDS: predniSONE 20 MG TAB PO SCH (08:05)
[2019-12-02 08:06] VITALS: BP 135/70
[2019-12-02] MEDS: CARVedilol 12.5 MG TAB PO SCH (08:06)
[2019-12-02] MEDS ORDERED: TORSEMIDE 10 MG TABLET PO SCH (12:45)
[2019-12-02 14:00] VITALS: BP 131/76
--- NOTE | 2019-12-02 15:16 | ECGEPIP ---
[facility] - ED Test Date: 2019-11-30 Pat Name: ARRON MACIAS Department: Room: [place] [address] Gender: Male Endodontics Dentist: jina : 1935 Requested By: JOYA SELLERS Order Number: [id number] Reading MD: Gisella Mcneal Measurements Intervals [place] Rate: 83 P: [place]: 0 QRS: -54 QRSD: 132 T: 59 QT: 379 QTc: 447 Interpretive Statements ATRIAL FIBRILLATION WITH ABERRANT CONDUCTION OR VENTRICULAR PREMATURE COMPLEXES INTRAVENTRICULAR CONDUCTION DELAY ANTEROSEPTAL MYOCARDIAL INFARCTION, OF INDETERMINATE AGE SIMILAR 08/08/18 Electronically Signed on 12-02-2019 15:15:33 EDT by Gisella Mcneal
--- NOTE | 2019-12-02 15:54 | DS.PDOC ---
Discharge Summary General Date of Admission Nov 30, 2019 at 16:13 Date of Discharge 12/02/19 Attending Physician: Ange Calloway MD Discharge Summary HISTORY OF PRESENT ILLNESS: The patient is an 84-year-old male with past medical history of aortic stenosis status post transcatheter aortic valve replacement, diastolic congestive heart failure, atrial fibrillation on anticoagulation, hypothyroidism, history of CVA, diabetes mellitus type 2, hypertension, CKD stage III presented to [facility] emergency room after being sent from his primary care provider's office for concerns of increased weakness and recent fall. The patient states that 2 weeks ago he had a fall at home where he hit his head on the way down. He had an unknown amount of time of loss of consciousness. He states he didn't take his medications that day and he's had loss of consciousness in the past when he has n't taken his home meds. Patient's episode was not witness but he states when he woke up, he did not have loss of bowel or bladder, denies tongue biting, post- ictal phase. He admits to some dizziness before. He did not report the incident then but today mentioned it to his primary care provider who was concerned and sent him to the emergency room for further evaluation. The patient admits to increased weakness, lethargy, decreased appetite, lightheadedness, dizziness occasionally, unsteadiness on his feet. He denies chest pain, diarrhea, abdominal pain, change in his home meds recently, fevers, chills, recent travel, recent illness or hospitalization. In the emergency room, vital signs were stable. ECG appeared abnormal in atrial fibrillation with apparent conduction, similar to last ECG on file. CBC was unremarkable outside of some thrombocytopenia with platelets of 144. Potassium high at 5.3, creatinine was markedly elevated from baseline at 3.23 (baseline creatinine 2.12.4). Troponin was negative, BNP 5057 (last BNP on file was >16K in 2019). Chest x-ray was unremarkable. The patient was admitted as acute inpatient for acute renal failure on chronic kidney disease stage III, weakness. HOSPITAL COURSE: Patient's diuretics were held and orthostatics were done BID. Initially orthostatics were positive;however, his second day of hospitalization, they were negative. He was walked with PT who found him to be independent and ok to return home. He was shown how to slowly sit up, stand up and wait before ambulating, to help prevent episodes of hypotension or lightheadedness. Cardiology did not think he needed a repeat Echocardiogram but did say that they thought his LOC was related to either severe pulmonary hypertension or orthostatic hypotension. They did not feel there was much they could add to his regimen that he wasn't already on. Nephrology assessed patient and added back low dose torsemide 30 mg daily, d/kanika PM dose and ACEi. Cr was back to near normal for patient on 12/02/19 (Cr 2.7-2.9). Per nephrology he could follow up with them in 1 week in their clinic to further assess. Patient was discharged on 12/02/19 in improved condition. He is advised to make an appointment after the weekend with 1. PCP and 2. nephrology clinic. REVIEW OF SYSTEMS: CONSTITUTIONAL: Denies unexplained weight gain or weight loss, fever, night sweats EYES: Denies eye drainage, eye pain, visual changes, dry/irritated eye EARS, NOSE, MOUTH, THROAT: Denies ringing in ears, mouth sores, loose teeth, sore throat, facial numbness or pain NECK: Denies swollen glands CARDIOVASCULAR: Denies racing heart, swelling of feet or legs, pain in legs with walking RESPIRATORY: Denies night sweats, wheezing, sputum production, oxygen at home, coughing up blood, cough lasting > 1 month GASTROINTESTINAL: Denies abdominal pain, constipation, bloody stool, diarrhea, heartburn, nausea, vomiting GENITOURINARY: Denies painful urination, bloody urine, frequent urination, urgency, leaking urine, impotence MUSCULOSKELETAL: Denies joint pain, muscle pain, leg swelling INTEGUMENTARY: Denies rash, itching, new skin lesion, change in existing skin lesion, hair loss or increase, breast changes. NEUROLOGICAL: Denies headaches,numbness or tingling PSYCHIATRIC: Denies depression, anxiety, recurrent bad thoughts, mood swings, hallucinations PAST MEDICAL HISTORY: 1. Aortic stenosis and with recent transcatheter aortic heart valve replacement. 2. Diastolic congestive heart failure. 3. Atrial fibrillation on chronic anticoagulation. 4. Hypothyroidism 5. History of cerebral vascular accident. 6. Diabetes mellitus type 2 7. HTN 8. CKD Stage III 9. Severe pulmonary HTN 10. GEETA noncompliant 11. Polycystic kidney disease 12. Iron deficiency anemia PAST SURGICAL HISTORY: 1. TAVR 05/2018 2. hernia repari 3. neck cyst removal SOCIAL HISTORY: Former smoker for 20 years, 1- 03/08 PPD. Quit 60 years ago. Denies alcohol use, illicit drug use. Cardiology- Dr. 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 Uses walker at baseline, lives with FAMILY HISTORY: Mother: CAD. in 70's Father: CAD. in 70's ALLERGIES: Please see below. DISCHARGE MEDICATIONS: Please see below PHYSICAL EXAMINATION: VS: Please see below CONSTITUTIONAL: No acute distress, resting comfortably, AAO x 3 EYES: PERRLA, EOM intact HENT, MOUTH: Normocephalic, atraumatic, moist mucous membranes NECK: SUPPLE, no JVD, no lymphadenopathy, no carotid bruit CV: Regular rate and rhythm, S1S2 normal, no murmurs/rubs/gallops RESPIRATORY: Clear to auscultation bilaterally, no rales/rhonchi/wheezes GI: BS positive in 4 quadrants, soft, nontender, nondistended, no rebound or guarding, no organomegaly : Deferred MUSCULOSKELETAL: Normal ROM. No cyanosis, clubbing, swelling, joint deformity, extremity edema INTEGUMENTARY: Intact, no rashes, no lesions, no erythema NEUROLOGIC: Cranial Nerves II-XII are intact, no focal deficits PSYCHIATRIC: Mood and affect are normal LABORATORY DATA: Please see below IMAGING: CXR: No acute findings CT head: No acute findings ASSESSMENT: 84-year-old male with past medical history of aortic stenosis status post transcatheter aortic valve replacement, diastolic congestive heart failure, atrial fibrillation on anticoagulation, hypothyroidism, history of CVA, diabetes mellitus type 2, hypertension, CKD stage III admitted for admitted for acute renal failure on chronic kidney disease stage III, weakness. PLAN: 1. Acute kidney injury on chronic kidney disease Stage III likely 2/2 to medication (torsemide), dehydration- resolved -Hx of polycystic kidney disease also -Cr now near new baseline (2.7-2.8). -Stopped ACEi, QPM dose of torsemide -Nephrology (Dr. Dow) consulted and restarted low dose torsemide. To follow closely in clinic in 1 week after discharge. 2. Syncope likely 2/2 to severe pulmonary HTN, orthostatic hypotension -No cardiac events on tele overnight. Atrial fib rate controlled with PVCs -CT head above, no deficits -Discussed case with Dr. Ward, cardiology. Echo from 2019 showed preserved EF, severe pulmn HTN, which he believes is likely cause. -Per cardiology, no need for repeat Echo, monitor on tele. -Patient was educated on how to get up slowly from seated position. -Instructed to follow up with PCP closely after discharge. 3. Weakness, lethargy possibly 2/2 to CARLOS on CKD -F/u with treatment plan under problem #1 -PT/OT: cleared for home 4. Severe pulmonary HTN, diastolic CHF (EF 45-50%)- end stage cor pulmonale likely 2/2 to uncontrolled GEETA, valvular disorder -BNP 5K, chronically elevated at this level, no signs of fluid overload. -Trop neg -Echo 2019: Severe pulmonary HTN, right heart failure -Discussed with cardiology, no new echo and no new cardiology workup needed -C/w BB, low dose torsemide daily. Stopped ACEi 5. Aortic stenosis s/p TAVR -C/w cardiac meds above 6. Hyperkalemia, acute likely 2/2 to CARLOS on CKD -No ECG changes -F/u with nephrology, PCP 7. Atrial fibrillation on AC -Rate controlled, many PVCs -C/w BB, Eliquis 8. GEETA -Noncompliant with home CPAP 9. Hypothyroidism -TSH from 2019 minimally elevated -F/u new TSH 10. DM type II -Not on home medications. 11. HTN -Stable. -C/w BB, holding diuretics 12. BPH -C/w home med 13. DVT px. -Eliquis DISPOSITION: Discharged home with encouragement to f/u with both nephrology in 1 week after discharge, PCP in 1-2 weeks after discharge. TIME SPENT ON DISCHARGE: Greater than 30 minutes. Vital Signs/I&Os Vital Signs Date Time Temp Pulse Resp B/P (MAP) Pulse Ox O2 Delivery O2 Flow Rate FiO2 12/02/19 14:00 98.1 53 17 131/76 (94) 96 Room Air I&O- Last 24 Hours up to 6 AM 12/02/19 06:00 Intake Total 1750 ml Balance 1750 ml Laboratory Data Labs 24H Laboratory Tests 2 12/02/19 05:54: Nucleated Red Blood Cells % (auto) 0.0, Anion Gap 6L, Glomerular Filtration Rate 22.0L, Calcium Level 8.7L, Total Bilirubin 0.3, Aspartate Amino Transf (AST /SGOT) 13, Alanine Aminotransferase (ALT/SGPT) 24, Alkaline Phosphatase 124H, Total Protein 6.3L, Albumin 2.9L, Albumin/Globulin Ratio 0.9 CBC/BMP Laboratory Tests 12/02/19 05:54 Discharge Medications Scheduled Allopurinol (Zyloprim) 300 Mg Tab, 300 MG PO QHS, (Reported) Apixaban (Eliquis) 2.5 Mg Tab, 2.5 MG PO BID, (Reported) Aspirin (Aspirin EC) 81 Mg Tab, 81 MG PO DAILY, (Reported) Atorvastatin Calcium (Atorvastatin Calcium) 40 Mg Tab, 40 MG PO DAILY, (Reported) Carvedilol (Carvedilol) 12.5 Mg Tablet, 12.5 MG PO BID, (Reported) Levothyroxine Sodium (Synthroid) 25 Mcg Tab, 25 MCG PO DAILY, (Reported) Tamsulosin HCl (Flomax) 0.4 Mg Capsule, 0.4 MG PO QHS, (Reported) Torsemide (Torsemide) 20 Mg Tablet, 30 MG PO DAILY, (Reported) Scheduled PRN Acetaminophen (Acetaminophen) 325 Mg Tablet, 650 MG PO Q4H PRN for PAIN, (Reported) Allergies Coded Allergies: NSAIDS (Non-Steroidal Anti-Inflamma (Unverified Allergy, Unknown, 11/30/19) TAKE ASPIRIN AT HOME: NOT A CLASS ALLERGY Penicillins (Verified Allergy, Unknown, 08/09/18) Current Medications Current Medications Medications (Trade) Dose Ordered Sig/Adelfo Route PRN Reason Start Time Stop Time Status Last Admin Dose Admin Acetaminophen (Tylenol Tab) 650 mg Q4H PRN PO PAIN 11/30/19 17:30 Albuterol/ Ipratropium (Duoneb (Ipr 0.5mg/Alb 2.5mg)) 3 ml RQ6H NEB 12/01/19 14:00 12/03/19 13:59 12/02/19 07:29 Allopurinol (Zyloprim) 200 mg DAILY PO 12/03/19 09:00 Apixaban (Eliquis) 2.5 mg BID PO 11/30/19 21:00 12/02/19 08:05 Aspirin (Ecotrin) 81 mg DAILY PO 12/01/19 09:00 12/02/19 08:05 Atorvastatin Calcium (Lipitor) 40 mg DAILY PO 12/01/19 09:00 12/02/19 08:05 Carvedilol (COReg) 12.5 mg BID PO 11/30/19 21:00 12/02/19 08:06 Home Med (Med Rec Complete!) ASDIRECTED XX 11/30/19 17:00 11/30/19 16:51 DC Levothyroxine Sodium (Synthroid) 25 mcg DAILY@0600 PO 12/01/19 06:00 12/02/19 05:48 Prednisone (Deltasone) 40 mg DAILY PO 12/01/19 13:00 12/06/19 12:59 12/02/19 08:05 Sodium Chloride 1,000 ml @ 100 mls/hr Q10H IV 11/30/19 14:52 11/30/19 17:30 DC 11/30/19 15:17 Tamsulosin HCl (Flomax) 0.4 mg QHS PO 11/30/19 21:00 12/01/19 20:46 Torsemide (Demadex) 30 mg DAILY PO 12/02/19 12:45 12/02/19 13:15 Ange Callowya MD Dec 02, 2019 15:54
[2019-12-03] MEDS ORDERED: allopurinoL 100 MG TAB PO SCH (09:00)
--- NOTE | 2019-12-04 16:34 | CR ---
DATE OF CONSULTATION: REQUESTING PHYSICIAN: Dr. Ange Calloway CONSULTED PHYSICIAN: Dr. Dow REASON FOR CONSULTATION: Management of acute renal failure superimposed on chronic kidney disease and adjustment of diuretic for congestive heart failure (CHF). CHIEF COMPLAINT: Patient presented to the hospital yesterday with weakness and syncope. HISTORY OF PRESENT ILLNESS: Mr. Merlin Salguero is an 84-year-old male with past medical history of multiple cysts in both kidneys, at least more than three cysts in each kidney, baseline chronic kidney disease (CKD) IV with a creatinine of around 2.7 as per labs done in September 2019 in our office, history of combined systolic and diastolic congestive heart failure, hypertension, multiple other comorbidities as mentioned below. He was sent to the emergency room by primary care physician (PCP) because of progressive weakness and recurrent falls. In the emergency room, patient was found to have acute kidney injury superimposed on chronic kidney disease. His creatinine was 3.2. His BUN was 88. He was admitted under the hospitalist service. Hospitalist discussed the case with me. The decision was made to hold the diuretics of this patient, and probably patient was dehydrated. Nephrology service was called for further help in the management of this patient in the morning. I saw and evaluated the patient today morning at the bedside. He was actually sitting in the sofa. He reported mild shortness of breath and some wheezing and whistling in the upper airways. He does report history of chronic obstructive pulmonary disease (COPD), but he quit smoking many years ago. MEDICAL HISTORY: 1. Chronic kidney disease, stage IV, baseline creatinine of around 2.7 as of September. 2. History of combined systolic and diastolic congestive heart failure. Left ventricular (LV) ejection fraction of 45% as per previous echocardiogram with grade 2 diastolic dysfunction. 3. History of atrial fibrillation, on anticoagulation. 4. Hypothyroidism. 5. Cerebrovascular accident (CVA) in the past. 6. Diabetes mellitus, type 2. 7. Severe pulmonary hypertension. 8. Obstructive sleep apnea. 9. Cholecystic kidneys. 10. Iron deficiency anemia. 11. Chronic gout secondary to chronic kidney disease. SURGICAL HISTORY: 1. Status post transcatheter aortic valve replacement (TAVR) in May 2018. 2. History of hernia repair in the past. 3. History of neck cyst removal in the past. ALLERGIES: He is allergic to NONSTEROIDAL ANTI-INFLAMMATORY DRUGS (NSAIDS) and PENICILLINS. FAMILY HISTORY: No significant known family history of polycystic kidney disease. Both parents had coronary artery disease, and they in their 70s. SOCIAL HISTORY: Patient lives at home. He is an ex-smoker. He quit almost 60 years ago. He denies any illicit drug abuse or alcohol use. He uses walker at baseline for activities of daily life. REVIEW OF SYSTEMS: CONSTITUTIONAL: Patient reports feeling weak nowadays. EYES: He denies any blurry vision or double vision. ENT: He denies any dysphagia or odynophagia. CARDIOVASCULAR: He reports history of atrial fibrillation. He does report baseline mild shortness of breath. RESPIRATORY: He reports wheezing and whistling. He denies any cough or phlegm. GASTROINTESTINAL: He denies any nausea, vomiting. GENITOURINARY: He denies any dysuria or hematuria. MUSCULOSKELETAL: He denies any muscle aches and pain. SKIN: He denies any rashes or ulcers. PSYCHIATRIC: He denies any depression or anxiety. CENTRAL NERVOUS SYSTEM: He denies any recent strokes, seizures, or weakness. HEMATOLOGY/ONCOLOGY: He denies any easy bleeding or bruising. All other review of systems is negative. PHYSICAL EXAMINATION: GENERAL: Patient is awake, alert, oriented times three, sitting up in the bed. VITAL SIGNS: Temperature is 97.8 degrees Fahrenheit, blood pressure 101/63, pulse is 78, respiratory rate of 18, saturating 98% on room air. Intake and output: Urine output recorded is 150 mL overnight. Weight in the bed scale is not available. HEAD AND NECK: Extraocular muscles intact. Pupils equally round and reactive to light. Mucous membranes are moist. Neck is supple. There is mildly elevated jugular venous distention (JVD). CARDIOVASCULAR: S1, S2 with irregularly irregular heart rate. No edema of the bilateral lower extremities. RESPIRATORY: Patient has wheezing at baseline, but otherwise on auscultation I could not appreciate any rales or rhonchi. Bilateral equal air entry. ABDOMEN: Soft. Positive bowel sounds. Nontender. No organomegaly. GENITOURINARY: Bladder is not palpable. Bedside bladder scan shows no postvoid residue. MUSCULOSKELETAL: No clubbing or cyanosis. Pulses are 2+. CENTRAL NERVOUS SYSTEM: No focal deficit. Power is 5/5 in all extremities. LABORATORY REVIEW: WBC shows a WBC of 7.6, hemoglobin 11.5, platelets 143. Urinalysis showed 2+ protein, 2+ glucose. No nitrite. No leukocyte esterase. BMP showed sodium 142, potassium 5.3, chloride 108, bicarbonate 24, BUN 88, creatinine 3.2, calcium 9.1. His proBNP on arrival was 5057. A repeat BMP done today morning showed sodium 144, potassium 5.1, chloride 112, bicarbonate 23, BUN 85, creatinine 2.8. A1c 6.1. Calcium 8.6, phosphorus 4.5, magnesium 2.1. AST 11, ALT 24, alkaline phosphatase 120. IMAGING: A CT scan of the head was done yesterday, which showed no acute intracranial findings. Chest x-ray was done yesterday, which showed no acute findings. CURRENT INPATIENT MEDICATIONS: - Patient is getting Tylenol as needed. - He is on Eliquis 2.5 mg by mouth twice a day. - aspirin 81 mg by mouth daily - Lipitor 40 mg by mouth daily - Coreg 12.5 mg by mouth twice a day - levothyroxine 25 mcg by mouth daily - Flomax 0.4 mg by mouth every night HOME MEDICATIONS: - allopurinol 300 mg by mouth daily - Eliquis 2.5 mg by mouth twice a day - aspirin 81 mg by mouth daily - Lipitor 40 mg by mouth daily - Coreg 12.5 mg by mouth daily - levothyroxine 25 mcg by mouth daily - lisinopril 10 mg by mouth every night - Flomax 0.4 mg every night - torsemide 30 mg by mouth daily in the morning and 20 mg in the afternoon ASSESSMENT: An 84-year-old male with a past medical history of chronic kidney disease, stage IV, history of atrial fibrillation, chronic systolic and diastolic heart failure, hypothyroidism, BPH, admitted at this time with weakness and falls and acute kidney injury superimposed on chronic kidney disease, stage IV. PLAN: 1. Acute kidney injury superimposed on chronic kidney disease, stage IV. Most likely it might be secondary to dehydration, volume depletion. His diuretic are all already hold. I do not think the patient needs IV fluid hydration at this time. Continue to monitor for urinary recovery. Creatinine is also trending down as compared with yesterday. 2. Hyperkalemia. It was secondary to acute kidney injury on chronic kidney disease (CKD) IV and use of angiotensin-converting enzyme (NICOLE) inhibitor at home. NICOLE inhibitors were stopped. Potassium is already improving. 3. Chronic combined systolic and diastolic congestive heart failure. Patient has an left ventricular (LV) ejection fraction of around 45% with grade 2 diastolic dysfunction. He has pulmonary hypertension as well. Diuretics are on hold because of acute kidney injury. I would continue to monitor the patient for initiation of diuretic regimen. At this point, patient does not look volume overloaded. 4. Chronic gout secondary to chronic kidney disease. I am going to restart the patient on lower dose of allopurinol 100 mg by mouth daily. 5. Atrial fibrillation. Heart rate is controlled. Continue current dose of carvedilol. He is anticoagulated with Eliquis. 6. Hypertension with hypertensive heart disease. Continue current dose of carvedilol 12.5 mg by mouth twice a day. Lisinopril is being held because of acute renal failure. 7. Shortness of breath and wheezing. I do not believe the patient is overloaded at this time. I am going to give him a trial of nebulizations and prednisone 40 mg by mouth daily. Patient has history of chronic obstructive pulmonary disease (COPD) and obstructive sleep apnea (GEETA) as well. Thank you for involving me in the care of this patient. I shall be happy to follow the patient along with you tomorrow morning. [facility] [place]
--- NOTE | 2019-12-06 10:29 | IPN ---
DATE: 12/02/2019 SUBJECTIVE: Patient was seen and examined at the bedside today morning. He reports that his shortness of breath is better. He was given nebulizations and steroids yesterday. Diuretics are still on hold. Creatinine has been fluctuating at 2.8 to 2.9. He denies any other active complaints at this time. OBJECTIVE: VITAL SIGNS: Temperature 98.1 degrees Fahrenheit, blood pressure 131/76, pulse 53, respiratory rate 17, saturating 96% on room air. Intake and output: Urine output is not recorded well. He has had one void so far since overnight. Weight in the bed scale is not available. PHYSICAL EXAMINATION: GENERAL: Patient is awake, alert, and oriented x3, sitting up in the bed in no apparent distress. HEAD AND NECK: Extraocular muscles intact. Pupils equally round and reactive to light. Mucous membranes are moist. Neck is supple. Mildly elevated JVD. CARDIOVASCULAR: S1, S2, regular rate. No edema of the bilateral lower extremities. RESPIRATORY: Chest is clear to auscultation bilaterally. Bilateral equal air entry. No rales or rhonchi. ABDOMEN: Soft, positive bowel sounds, nontender. No organomegaly. MUSCULOSKELETAL: No clubbing or cyanosis. Pulses are 2+. HAT MARKER: No focal deficit. Power is 5/5 in all extremities. LABORATORY REVIEW: CBC showed WBC 7.6, hemoglobin 12.1, platelets 150,000. BNP showed sodium 139, potassium 5.2, chloride 111, bicarb 22, BUN 80, creatinine 2.9, calcium 8.7. Alkaline phosphatase 124, albumin 2.9. CURRENT INPATIENT MEDICATIONS: Patient's medications were all reviewed by myself. There is no significant change in the medications today as compared with yesterday. I have restarted the patient on Torsemide 30 mg p.o. daily. ASSESSMENT AND PLAN: 1. Acute kidney injury superimposed on chronic kidney disease stage 4: Patient's diuretics were held for two days. His creatinine has been fluctuating at around 2.8 to 2.9, which is close to his baseline. Because of history of congestive heart failure, I am restarting his diuretics now. 2. Hyperkalemia: Potassium level should get better after resumption of the loop diuretics. Avoid further use of NICOLE inhibitors in this patient. 3. Chronic combined systolic and diastolic congestive heart failure: Volume status is optimal. His home diuretic regimen is Torsemide 30 mg in the morning and 20 mg in the afternoon. I am restarting Torsemide 30 mg daily. Further adjustment of the dose will be done as an outpatient. 4. Aortic stenosis; status post TAVR and history of severe pulmonary hypertension: Patients volume status is optimal, restart a lower dose of home diuretics as mentioned above. DISPOSITION: Patient is okay to be discharged from a nephrology standpoint. He can follow-up with nephrology within one week after discharge from the hospital. MATEO
== END 2019-12-02 16:20 | disposition home or self-care (01) | DRG 683 ==
LOC: M ED 14:47 → M ED INP 16:13 → ENRESERV 16:27 → M MSPAV 17:04
PROVIDERS: ADMIT Internal Medicine; ATTEND Internal Medicine
DX: N17.9 Acute kidney failure, unspecified (principal); I50.32 Chronic diastolic (congestive) heart failure; I13.0 Hypertensive heart and chronic kidney disease with heart failure and stage 1 through stage 4 chronic kidney disease, or unspecified chronic kidney disease; Q61.3 Polycystic kidney, unspecified; R53.1 Weakness; I35.0 Nonrheumatic aortic (valve) stenosis; I48.91 Unspecified atrial fibrillation; E03.9 Hypothyroidism, unspecified; I95.1 Orthostatic hypotension; R53.83 Other fatigue; D50.9 Iron deficiency anemia, unspecified; N18.3 Chronic kidney disease, stage 3 (moderate); G47.33 Obstructive sleep apnea (adult) (pediatric); E87.5 Hyperkalemia; I27.20 Pulmonary hypertension, unspecified; E86.0 Dehydration; N40.0 Benign prostatic hyperplasia without lower urinary tract symptoms; E11.22 Type 2 diabetes mellitus with diabetic chronic kidney disease; I27.81 Cor pulmonale (chronic); T50.2X5A Adverse effect of carbonic-anhydrase inhibitors, benzothiadiazides and other diuretics, initial encounter; Z95.2 Presence of prosthetic heart valve; Z79.01 Long term (current) use of anticoagulants; Z87.891 Personal history of nicotine dependence; Z86.73 Personal history of transient ischemic attack (TIA), and cerebral infarction without residual deficits; Z91.19 Patient's noncompliance with other medical treatment and regimen; Z79.82 Long term (current) use of aspirin; Z79.899 Other long term (current) drug therapy; Z88.0 Allergy status to penicillin; Z88.6 Allergy status to analgesic agent

== ENCOUNTER 2020-01-13 04:23 | Inpatient (IN) | payer MEDICARE, OTHER ==
[~2020-01-13] VITALS: Ht 177.8 cm; Wt 85.4 kg
[~2020-01-13 04:23] MED LIST changes: +CIPR500T3 PO; +FLOM0.4C39 PO
[2020-01-13] MEDS ORDERED: methylPREDNISolone 125MG 2ML VIAL IV ONE (05:00)
[2020-01-13] MEDS ORDERED: IPRATROPIUM 0.02% SOLN 0.5MG 2.5ML NEB NEB ONE (05:00)
[2020-01-13] MEDS ORDERED: NITROGLYCERIN 2% OINT 1 GM *U/D* PKT TOP ONE (05:00)
[2020-01-13] MEDS ORDERED: ALBUTEROL SULFATE 2.5 MG/0.5 ML INH NEB SOLN NEB ONE ×2 (05:00→07:00)
[2020-01-13] MEDS ORDERED: FUROSEMIDE 40MG/4ML VIAL (J1940) IV ONE (05:00)
[2020-01-13 05:35] LABS: BASO # 0.1 10^3/uL (0.0-0.2); BASO % 0.5 % (0.0-1.0); EOS # 0.9 10^3/uL (0.0-0.5); EOS % 9.9 % (0.0-3.0); HEMATOCRIT 38.1 % (42.0-52.0); LYMPH # 1.2 10^3/uL (1.5-5.0); MEAN CORPUSCULAR HEMOGLOBIN 32.5 pg (27.0-33.0); MEAN CORPUSCULAR HGB CONC 31.5 g/dl (32.0-36.5); MEAN CORPUSCULAR VOLUME 103.3 fl (80.0-96.0); MONO # 0.5 10^3/uL (0.0-0.8); MONO % 5.7 % (0.0-5.0); NEUTROPHILS # 6.6 10^3/uL (1.5-8.5); NEUTROPHILS % 70.6 % (36.0-66.0); PLATELET COUNT, AUTOMATED 173 10^3/uL (150-450); RED BLOOD COUNT 3.69 10^6/uL (4.30-6.10); WHITE BLOOD COUNT 9.4 10^3/uL (4.0-10.0)
--- NOTE | 2020-01-13 05:54 | ECGEPIP ---
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
[2020-01-13 05:57] LABS: ALBUMIN 3.5 GM/DL (3.2-5.2); BILIRUBIN,DIRECT 0.1 MG/DL (0.0-0.2); BILIRUBIN,TOTAL 0.3 MG/DL (0.2-1.0); CALCIUM LEVEL 8.6 MG/DL (8.8-10.2); CREATININE FOR GFR 2.67 MG/DL (0.70-1.30); GLOMERULAR FILTRATION RATE 24.4 (>35); POTASSIUM SERUM 5.1 MEQ/L (3.5-5.1); TOTAL PROTEIN 6.8 GM/DL (6.4-8.2)
[2020-01-13] MEDS: LEVOTHYROXINE 25MCG TABLET (0.025MG) PO SCH (06:00)
--- NOTE | 2020-01-13 06:30 | REPVR ---
PROCEDURE INFORMATION: Exam: XR Chest, 1 View Exam date and time: 01/13/2020 5:38 AM Age: 84 years old Clinical indication: Other: Dyspnea/cough TECHNIQUE: Imaging protocol: XR of the chest Views: 1 view. COMPARISON: CR PORTABLE CHEST X-RAY 11/30/2019 2:58 PM FINDINGS: Lungs: Mild infiltrate in the right lower lobe. No left lung infiltrate. Pleural space: Unremarkable. No pleural effusion. No pneumothorax. Heart/Mediastinum: Mild cardiomegaly. Bulbous appearance to the right heart border, consistent with left atrial enlargement. Vasculature: Moderate atherosclerotic calcification of the aortic arch. Bones/joints: Unremarkable. IMPRESSION: Mild infiltrate in the right lower lobe. Consistent with pneumonia. Electronically signed by: Cheo Lima On 01/13/2020 06:29:41 AM
[2020-01-13] MEDS ORDERED: cefTRIAXone SOD 1 GM in D5W MINI-BAG PLUS 50 ML IV ONE (06:45)
[2020-01-13] MEDS ORDERED: AZITHROMYCIN INJ 500 MG, VIAL MATE ADAPTER 1 EACH in D5W 250 ML IV ONE (07:15)
[2020-01-13] MEDS ORDERED: FINA5TAB2 PO (07:19)
[2020-01-13] MEDS ORDERED: COMBIVENT RESPIMAT 100-20MCG INHALER 4GM INH ONE (07:45)
[2020-01-13] MEDS ORDERED: ALBUTEROL 90 MCG/ACT 8GM HFA INHALER INH ONE (08:00)
[2020-01-13] MEDS ORDERED: CENT1TAB2 PO (08:37)
[2020-01-13] MEDS ORDERED: MAGN64TASA PO (08:37)
[2020-01-13] MEDS ORDERED: PROAAER10 INH (08:37)
[2020-01-13] MEDS ORDERED: VITATAB73 PO (08:37)
[2020-01-13] MEDS ORDERED: FERR325T16 PO (08:37)
[2020-01-13] MEDS ORDERED: ACETAMINOPHEN TAB 650MG DOSE (2X325MG) PO PRN (09:45)
[2020-01-13] MEDS ORDERED: ALBUTEROL 90 MCG/ACT 8GM HFA INHALER INH PRN (09:45)
[2020-01-13] MEDS: FERROUS GLUCONATE 324 MG TAB PO SCH (11:32)
[2020-01-13] MEDS: MAGNESIUM CHLORIDE 64 MG TABCR (SLO MAG) PO SCH (11:33)
[2020-01-13] MEDS: ATORVASTATIN 20 MG TAB PO SCH (11:33)
[2020-01-13] MEDS: ASPIRIN 81 MG ENTERIC TAB PO SCH (11:33)
[2020-01-13] MEDS: TORSEMIDE 10 MG TABLET PO SCH (11:33)
[2020-01-13] MEDS: MULTIVITAMINS/MINERALS THERAP 1 TAB PO SCH (11:34)
[2020-01-13] MEDS: CARVedilol 12.5 MG TAB PO SCH ×2 (11:34→20:45)
[2020-01-13] MEDS: APIXABAN 2.5 MG TAB (ELIQUIS) PO SCH ×2 (11:34→20:42)
[2020-01-13 12:40] VITALS: BP 130/82
[2020-01-13] MEDS: methylPREDNISolone 40MG 1ML VIAL IV SCH (17:16)
--- NOTE | 2020-01-13 17:59 | HPEPDOC ---
General Date of Admission Jan 13, 2020 at 09:35 Date of Service: Jan 13, 2020 Chief Complaint The patient is a 84-year-old male admitted with a reason for visit of Pneumonia and COPD exacerbation. Source: Patient History of Present Illness Mr. Fairchild is an 84 year old male with diastolic CHF, aortic stenosis s/p TAVR, hypothyroidism, DM2, and COPD here with orthopnea and worsening dyspnea. For the past 3 months, he has been having progressive dyspnea. He was recently here for CHF exacerbation in 2019. He tells me that due to his diuretics, he is usually up to urinate 2 to 3 times a night. When we walks back to bed, he becomes dyspneic, but after lying still, it would resolve. This past evening, he was trying to lie still, but it did not improve his breathing. He reports wheezing with productive cough with yellow phlegm which has increased in the past few days. He tried 3 puff of his albuterol which did not help. so he came to the ED. Prior to this, he has not had travel or sick contact. He stay at home except to go to doctor visits. He lives with his son who works as a teacher/professor. His is in better health and goes out to shop for groceries. While in the ED, he was saturating around 94 at room air. He had tachypnea and tachycardia, but otherwise, no fever. CXR demonstrated infiltrate in the right lower lobe. He was given 40mg IV Lasix. He was also given 125mg IV solumedrol, azithromycin, ceftriaxone, and Duonebs. In the ED, I asked him about his code status. He wanted to defer until he spoke with his son (Merlin Fairchild, same name). He was okay being full code. In the afternoon, I spoke with Merlin Fairchild (son, ) and the patient. He was indecisive, but his main goal was to not by suffocating like what happened early this morning. If his heart or lungs were to stop, he would like to pass comfortably and be given medication to make him comfortable at that time. He asked if he could change his mind later, and I explained that he could. He decided to be DNR/DNI today with the son on the phone being a witness to the conversation. Son was agreeable to this. Home Medications Scheduled Allopurinol (Zyloprim) 300 Mg Tab, 300 MG PO QHS, (Reported) Apixaban (Eliquis) 2.5 Mg Tab, 2.5 MG PO BID, (Reported) Aspirin (Aspirin EC) 81 Mg Tab, 81 MG PO DAILY, (Reported) Atorvastatin Calcium (Atorvastatin Calcium) 40 Mg Tab, 40 MG PO DAILY, (Reported) Carvedilol (Carvedilol) 12.5 Mg Tablet, 12.5 MG PO BID, (Reported) Ferrous Gluconate (Ferrous Gluconate) 324 Mg Tablet, 324 MG PO DAILY, (Reported) Levothyroxine Sodium (Synthroid) 25 Mcg Tab, 25 MCG PO DAILY, (Reported) Magnesium Chloride (Mag64) 64 Mg Tablet.dr, 64 MG PO DAILY, (Reported) Multivit-Mins/Iron/Folic/Lycop (Centrum Men's Tablet) 1 Each Tablet, 1 TAB PO DAILY, (Reported) Tamsulosin HCl (Flomax) 0.4 Mg Capsule, 0.4 MG PO QHS, (Reported) Torsemide (Torsemide) 20 Mg Tablet, 30 MG PO DAILY, (Reported) Vitamin B Complex (Vitamin B Complex) 1 Each Tablet, 1 TAB PO DAILY, (Reported) Scheduled PRN Acetaminophen (Acetaminophen) 325 Mg Tablet, 650 MG PO Q4H PRN for PAIN, (Reported) Albuterol Sulfate (Proair Hfa) 8.5 Gm Hfa.aer.ad, 2 PUFF INH Q4H PRN for SOB/WHEEZING, (Reported) Allergies Coded Allergies: NSAIDS (Non-Steroidal Anti-Inflamma (Unverified Allergy, Unknown, 11/30/19) TAKE ASPIRIN AT HOME: NOT A CLASS ALLERGY Penicillins (Verified Allergy, Unknown, 08/09/18) Past Medical History Medical History 1. Aortic stenosis and with recent transcatheter aortic heart valve replacement. 2. Diastolic congestive heart failure. 3. Atrial fibrillation on chronic anticoagulation. 4. Hypothyroidism 5. History of cerebral vascular accident. 6. Diabetes mellitus type 2 7. HTN 8. CKD Stage III 9. Severe pulmonary HTN 10. GEETA noncompliant 11. Polycystic kidney disease 12. Iron deficiency anemia 13. COPD Surgical History 1. TAVR 05/2018 2. hernia repari 3. neck cyst removal Family History Mother: CAD. in 70's Father: CAD. in 70's Social History * Smoker: former Smoker (Smoked for 20 years, about 1-1/2 PPD. Quit 60 years ago) Alcohol: Denies Drugs: denies A-FIB/CHADSVASC A-FIB History Current/History of A-Fib/PAF?: Yes Current PO Anticoag Therapy: Yes Review of Systems Constitutional: Reports: Malaise; Denies: Chills ENT: Reports: Sore Throat; Denies: Head Aches Skin: Reports: Rash (Occipital scalp), Itching (Diffuse) Pulmonary: Reports: Dyspnea, Cough (Yellow sputum) Cardiovascular: Reports: Orthopnea, Lt Headedness; Denies: Chest Pain Gastrointestinal: Reports: Constipation (Difficult to produce BM); Denies: Nausea, Abdominal Pain Genitourinary: Denies: Dysuria Endocrine: Denies: Polydipsia, Polyphagia, Polyuria Musculoskeletal: Denies: Back Pain Neurological: Reports: Numbness (from knees down to feet) Physical Examination General Exam: Positive: Alert, Cooperative, Mild Distress (respiratory distress, difficulty completing a full sentence) Eye Exam: Positive: EOMI ENT Exam: Positive: Mucous membr. moist/pink, Tongue Midline Neck Exam: Positive: Supple Chest Exam: Positive: Diminished Heart Exam: Positive: Rate Normal, Regular Rhythm Abdomen Exam: Positive: Normal bowel sounds, Soft Extremity Exam: Negative: Edema Skin Exam: Positive: Nl turgor and temperature Neuro Exam: Positive: Cranial Nerves 3-12 NL Psych Exam: Positive: Mental status NL, Mood NL Vital Signs Vital Signs Date Time Temp Pulse Resp B/P (MAP) Pulse Ox O2 Delivery O2 Flow Rate FiO2 01/13/20 12:40 97.3 88 20 130/82 (98) 96 Room Air 01/13/20 04:45 97 Laboratory Data Labs 24H Laboratory Tests 2 01/13/20 05:03: Immature Granulocyte % (Auto) 0.3, Neutrophils (%) (Auto) 70.6H, Lymphocytes (%) (Auto) 13.0L, Monocytes (%) (Auto) 5.7H, Eosinophils (%) (Auto) 9.9H, Basophils (%) (Auto) 0.5, Neutrophils # (Auto) 6.6, Lymphocytes # (Auto) 1.2L, Monocytes # (Auto) 0.5, Eosinophils # (Auto) 0.9H, Basophils # (Auto) 0.1, Nucleated Red Blood Cells % (auto) 0.0, Anion Gap 6L, Glomerular Filtration Rate 24.4L, Lactic Acid Level 0.9, Calcium Level 8.6L, Total Bilirubin 0.3, Direct Bilirubin 0.1, Aspartate Amino Transf (AST/SGOT) 28, Alanine Aminotransferase (ALT/SGPT) 29, Alkaline Phosphatase 178H, ZL-Ere-E-Type Natriuretic Peptide 4334H, Total Protein 6.8, Albumin 3.5, Albumin/Globulin Ratio 1.1 01/13/20 05:20: POC Troponin I (Misc) 0.01 01/13/20 06:56: Coronavirus (COVID-19)(PCR) NEGATIVE CBC/BMP Laboratory Tests 01/13/20 05:03 Microbiology Microbiology 01/13/20 Blood Culture, Received Pending 01/13/20 Blood Culture, Received Pending Assessment/Plan Mr. Fairchild is an 84 year old male with diastolic CHF, aortic stenosis s/p TAVR, and COPD here with orthopnea and worsening dyspnea secondary to COPD exacerbation from right lower lobe pneumonia. Pneumonia will be worked up with blood cultures, sputum cultures, urinary legionella antigen, and urinary strep pneumo antigen. He will be treated for CAP with ceftriaxone and azithromycin. F or the COPD exacerbation he will be given IV solumedrol and duonebs. Looking through the medication list, he is not on COPD medication except albuterol as a rescue inhaler. He tells me he does have COPD and did follow pulmonary in the past. He confirms that the only puffer he has at home was albut carissa. I spoke with them that it would be important to follow up with pulmonary in the future for evaluation of COPD and COPD management. He does not appear fluid overloaded. No pitting edema and I did not appreciate JVD. He has had neck surgery in the past. Will obtain an echocardiogram due to his orthopnea and pulmonary hypertension. His dyspnea may be multifactorial. Plan / VTE VTE Prophylaxis Ordered?: Yes Plan Plan 1. COPD exacerbation 2/2 PNA -Wheezing with increase in dyspnea and sputum -IV antibiotics, IV steroids, and duonebs -He is only on albuterol at home. May benefit from LABA on discharge. He should follow up with pulmonary for evaluation/management of COPD 2. PNA -CXR demonstrates right lower lobe PNA -Produces yellow sputum -Work up with blood cultures, sputum culture, legionella antigen, strep pneumo antigen -Empirically on ceftriaxone and azithromycin. On probiotic 3. Diastolic CHF -Last echocardiogram was in 2019 -He reports orthopnea, but appears to be euvolemic -Will order echocardiogram -Continue diuretics 4. Pulmonary hypertension -May contribute to dyspnea -Will order echocardiogram -Continue diuretics 5. Aortic stenosis s/p TAVR -Will order echocardiogram 6. Atrial fibrillation -Rate controlled -Albuterol may increase HR -Continue Coreg and Apixaban -Apixaban appropriately dosed (Age >80 and Creatine >1.5 qualifies for half dose) 7. BPH -Continue Tamsulosin 8. Hypothyroidism -Continue levothyroxine 9. DVT ppx -Already on apixaban NICOLAS BECERRA DO Jan 13, 2020 17:58
[2020-01-13] MEDS ORDERED: MIRALAX *UNIT DOSE* 17GM PACKET PO PRN (18:15)
[2020-01-13] MEDS: DOCUSATE SODIUM 100 MG CAP PO SCH (20:42)
[2020-01-13] MEDS: TAMSULOSIN 0.4 MG CAP PO SCH (20:42)
[2020-01-13] MEDS: allopurinoL 300 MG TAB PO SCH (20:43)
[2020-01-13] MEDS: IPRATROPIUM 0.5MG/ALBUTEROL 2.5MG INH SOL UD 3ML (DUONEB) NEB PRN (21:46)
[2020-01-13 22:00] VITALS: BP 166/96
[2020-01-13] MEDS: CEPACOL LOZENGE PO PRN (22:04)
[2020-01-14] MEDS: CEPACOL LOZENGE PO PRN ×3 (02:12→20:55)
[2020-01-14] MEDS: methylPREDNISolone 40MG 1ML VIAL IV SCH ×2 (05:28→18:11)
[2020-01-14] MEDS: LEVOTHYROXINE 25MCG TABLET (0.025MG) PO SCH (05:28)
[2020-01-14 06:00] VITALS: BP 134/74
[2020-01-14 08:55] LABS: HEMATOCRIT 33.5 % (42.0-52.0); HEMOGLOBIN 10.9 g/dl (13.5-17.5); MEAN CORPUSCULAR HEMOGLOBIN 33.3 pg (27.0-33.0); MEAN CORPUSCULAR HGB CONC 32.5 g/dl (32.0-36.5); MEAN CORPUSCULAR VOLUME 102.4 fl (80.0-96.0); PLATELET COUNT, AUTOMATED 177 10^3/uL (150-450); RED BLOOD COUNT 3.27 10^6/uL (4.30-6.10); WHITE BLOOD COUNT 14.8 10^3/uL (4.0-10.0)
[2020-01-14] MEDS: cefTRIAXone SOD 1 GM in D5W MINI-BAG PLUS 50 ML IV SCH (09:21)
[2020-01-14] MEDS: FERROUS GLUCONATE 324 MG TAB PO SCH (09:21)
[2020-01-14] MEDS: ASPIRIN 81 MG ENTERIC TAB PO SCH (09:22)
[2020-01-14] MEDS: TORSEMIDE 10 MG TABLET PO SCH (09:22)
[2020-01-14] MEDS: ATORVASTATIN 20 MG TAB PO SCH (09:22)
[2020-01-14] MEDS: DOCUSATE SODIUM 100 MG CAP PO SCH ×2 (09:22→20:54)
[2020-01-14] MEDS: APIXABAN 2.5 MG TAB (ELIQUIS) PO SCH ×2 (09:22→20:54)
[2020-01-14] MEDS: LACTOBACILLUS ACIDOPHILUS CAP (BACID) PO SCH (09:22)
[2020-01-14] MEDS: MULTIVITAMINS/MINERALS THERAP 1 TAB PO SCH (09:22)
[2020-01-14] MEDS: CARVedilol 12.5 MG TAB PO SCH ×2 (09:22→20:55)
[2020-01-14] MEDS: MAGNESIUM CHLORIDE 64 MG TABCR (SLO MAG) PO SCH (09:23)
[2020-01-14 09:26] LABS: CALCIUM LEVEL 8.7 MG/DL (8.8-10.2); CREATININE FOR GFR 3.16 MG/DL (0.70-1.30); GLOMERULAR FILTRATION RATE 20.1 (>35)
[2020-01-14] MEDS: IPRATROPIUM 0.5MG/ALBUTEROL 2.5MG INH SOL UD 3ML (DUONEB) NEB PRN (09:38)
[2020-01-14] MEDS: AZITHROMYCIN INJ 500 MG, VIAL MATE ADAPTER 1 EACH in D5W 250 ML IV SCH (10:07)
[2020-01-14 14:00] VITALS: BP 143/86
[2020-01-14] MEDS: IPRATROPIUM 0.5MG/ALBUTEROL 2.5MG INH SOL UD 3ML (DUONEB) NEB SCH ×2 (19:23→23:05)
[2020-01-14 20:20] VITALS: BP 182/109
[2020-01-14] MEDS: TAMSULOSIN 0.4 MG CAP PO SCH (20:54)
[2020-01-14] MEDS: allopurinoL 300 MG TAB PO SCH (20:54)
[2020-01-14] MEDS ORDERED: GLUCAGON INJ 1MG VIAL SC PRN (21:30)
[2020-01-14] MEDS ORDERED: DEXTROSE 50% 50 ML SYRINGE IV PRN (21:30)
[2020-01-14] MEDS ORDERED: GLUCOSE 4GM CHEW TABLET PO PRN (21:30)
[2020-01-14] MEDS: HumaLOG INSULIN (NovoLOG) PER UNIT SC SCH (22:13)
--- NOTE | 2020-01-14 22:34 | IPNPDOC ---
Subjective Date Seen The patient was seen on 01/14/20. Subjective Chief Complaint/HPI Mr. Fairchild is an 84 year old male with diastolic CHF, aortic stenosis s/p TAVR, hypothyroidism, DM2, and COPD here with orthopnea and worsening dyspnea. Today, he was not feeling well. Still dyspneic. He was not receiving the duoneb treatment frequently. Otherwise denies fever/chills, abdominal pain, or dysuria. Objective Physical Examination General Exam: Positive: Alert, Cooperative, Mild Distress (respiratory distress, difficulty completing a full sentence) Eye Exam: Positive: EOMI ENT Exam: Positive: Mucous membr. moist/pink, Tongue Midline Neck Exam: Positive: Supple Chest Exam: Positive: Diminished Heart Exam: Positive: Rate Normal, Regular Rhythm Abdomen Exam: Positive: Normal bowel sounds, Soft Extremity Exam: Negative: Edema Skin Exam: Positive: Nl turgor and temperature Neuro Exam: Positive: Cranial Nerves 3-12 NL Psych Exam: Positive: Mental status NL, Mood NL Assessment /Plan Assessment Mr. Fairchild is an 84 year old male with diastolic CHF, aortic stenosis s/p TAVR, and COPD here with orthopnea and worsening dyspnea secondary to COPD exacerbation from right lower lobe pneumonia. Pneumonia will be worked up with blood cultures, sputum cultures, urinary legionella antigen, and urinary strep pneumo antigen. He will be treated for CAP with ceftriaxone and azithromycin. For the COPD exacerbation he will be given IV solumedrol and duonebs. Looking through the medication list, he is not on COPD medication except a lbuterol as a rescue inhaler. He tells me he does have COPD and did follow pulmonary in the past. He confirms that the only puffer he has at home was albuterol. I spoke with them that it would be important to follow up with pulmonary in the future for evaluation of COPD and COPD management. He does not appear fluid overloaded. No pitting edema and I did not appreciate JVD. He has had neck surgery in the past. Will obtain an echocardiogram due to his orthopnea and pulmonary hypertension. His dyspnea may be multifactorial. Plan/VTE VTE Prophylaxis Ordered?: Yes Plan 1. COPD exacerbation 2/2 PNA -Wheezing with increase in dyspnea and sputum -IV antibiotics, IV steroids, and duonebs -He is only on albuterol at home. May benefit from LABA on discharge. He should follow up with pulmonary for evaluation/management of COPD -Today increased duonebs to scheduled 2. PNA -CXR demonstrates right lower lobe PNA -Produces yellow sputum -Work up with blood cultures, sputum culture, legionella antigen, strep pneumo antigen -Empirically on ceftriaxone and azithromycin. On probiotic 3. Diastolic CHF -Last echocardiogram was in 2019 -He reports orthopnea, but appears to be euvolemic -Will order echocardiogram -Continue diuretics 4. Pulmonary hypertension -May contribute to dyspnea -Will order echocardiogram -Continue diuretics 5. Aortic stenosis s/p TAVR -Will order echocardiogram 6. Atrial fibrillation -Rate controlled -Albuterol may increase HR -Continue Coreg and Apixaban -Apixaban appropriately dosed (Age >80 and Creatine >1.5 qualifies for half dose) 7. BPH -Continue Tamsulosin 8. Hypothyroidism -Continue levothyroxine 9. DVT ppx -Already on apixaban VS, I&O, 24H, Fishbone Vital Signs/I&O Vital Signs Date Time Temp Pulse Resp B/P (MAP) Pulse Ox O2 Delivery O2 Flow Rate FiO2 01/14/20 20:55 182/109 01/14/20 14:00 98.1 111 20 95 Room Air 01/13/20 04:45 97 I&O- Last 24 Hours up to 6 AM 01/14/20 06:00 Intake Total 1505 ml Output Total 400 ml Balance 1105 ml Laboratory Data 24H LABS Laboratory Tests 2 01/14/20 08:21: Nucleated Red Blood Cells % (auto) 0.0, Anion Gap 11, Glomerular Filtration Rate 20.1L, Calcium Level 8.7L 01/14/20 20:45: Bedside Glucose (Misc Panel) 294H CBC/BMP Laboratory Tests 01/14/20 08:21 Microbiology Microbiology 01/13/20 Blood Culture - Preliminary, Resulted No growth after 24 hours . All specim... 01/13/20 Blood Culture - Preliminary, Resulted No growth after 24 hours . All specim... NICOLAS BECERRA DO Jan 14, 2020 22:34
[2020-01-15] MEDS: IPRATROPIUM 0.5MG/ALBUTEROL 2.5MG INH SOL UD 3ML (DUONEB) NEB SCH ×5 (02:52→19:47)
[2020-01-15] MEDS: methylPREDNISolone 40MG 1ML VIAL IV SCH ×2 (05:07→17:07)
[2020-01-15] MEDS: LEVOTHYROXINE 25MCG TABLET (0.025MG) PO SCH (05:07)
[2020-01-15 06:39] VITALS: BP 138/95
[2020-01-15 07:16] LABS: HEMATOCRIT 32.1 % (42.0-52.0); HEMOGLOBIN 10.8 g/dl (13.5-17.5); MEAN CORPUSCULAR HEMOGLOBIN 33.8 pg (27.0-33.0); MEAN CORPUSCULAR HGB CONC 33.6 g/dl (32.0-36.5); MEAN CORPUSCULAR VOLUME 100.3 fl (80.0-96.0); PLATELET COUNT, AUTOMATED 167 10^3/uL (150-450); WHITE BLOOD COUNT 11.9 10^3/uL (4.0-10.0)
[2020-01-15 07:41] LABS: CALCIUM LEVEL 8.5 MG/DL (8.8-10.2); CREATININE FOR GFR 2.79 MG/DL (0.70-1.30); GLOMERULAR FILTRATION RATE 23.2 (>35); POTASSIUM SERUM 4.9 MEQ/L (3.5-5.1)
[2020-01-15] MEDS: cefTRIAXone SOD 1 GM in D5W MINI-BAG PLUS 50 ML IV SCH (08:09)
[2020-01-15] MEDS: MAGNESIUM CHLORIDE 64 MG TABCR (SLO MAG) PO SCH (08:35)
[2020-01-15] MEDS: HumaLOG INSULIN (NovoLOG) PER UNIT SC SCH ×4 (08:35→21:48)
[2020-01-15] MEDS: TORSEMIDE 10 MG TABLET PO SCH (08:36)
[2020-01-15] MEDS: FERROUS GLUCONATE 324 MG TAB PO SCH (08:36)
[2020-01-15] MEDS: MULTIVITAMINS/MINERALS THERAP 1 TAB PO SCH (08:36)
[2020-01-15] MEDS: LACTOBACILLUS ACIDOPHILUS CAP (BACID) PO SCH (08:36)
[2020-01-15] MEDS: APIXABAN 2.5 MG TAB (ELIQUIS) PO SCH ×2 (08:36→21:40)
[2020-01-15] MEDS: ASPIRIN 81 MG ENTERIC TAB PO SCH (08:36)
[2020-01-15] MEDS: DOCUSATE SODIUM 100 MG CAP PO SCH ×2 (08:36→21:39)
[2020-01-15] MEDS: CEPACOL LOZENGE PO PRN (08:36)
[2020-01-15] MEDS: CARVedilol 12.5 MG TAB PO SCH ×2 (08:37→21:44)
[2020-01-15] MEDS: ATORVASTATIN 20 MG TAB PO SCH (08:37)
[2020-01-15] MEDS: AZITHROMYCIN INJ 500 MG, VIAL MATE ADAPTER 1 EACH in D5W 250 ML IV SCH (09:17)
[2020-01-15] MEDS ORDERED: FLEET ENEMA PR PRN (12:45)
[2020-01-15] MEDS ORDERED: MOM 30ML SUSPENSION UDC PO PRN (12:45)
--- NOTE | 2020-01-15 13:45 | ECHO ---
DATE OF PROCEDURE: 01/14/2020 Age: 84 Gender: Male Height: 178 cm Weight: 86 kg REFERRING PHYSICIAN: Saleem Zamorano DO INDICATION: Dyspnea, unspecified. MEASUREMENTS: 2D Measurements: Interventricular septum 1.17 cm Posterior wall 1.24 cm Left ventricle diastole 4.3 cm Aortic root 2.3 cm Left atrium 4.7 cm Inferior vena cava 2.3 cm (more than 50% respiratory variation) Doppler Measurements: No aortic stenosis No aortic regurgitation Aortic valve velocity 181 cm/s LVOT velocity 87.5 cm/s Very mild mitral regurgitation Mitral E velocity 149 cm/s Moderate tricuspid regurgitation Estimated right ventricle systolic pressure 48 mmHg Estimated right atrial pressure 10 mmHg No pulmonic regurgitation MITRAL ANNULAR TISSUE DOPPLER E prime septal 9.3 cm/s, E prime lateral 8.5 cm/s DESCRIPTION: Rhythm was atrial fibrillation with controlled ventricular response. This was a moderately technically difficult echocardiogram. This was a 2D, M-mode, color flow Doppler, and pulsed wave Doppler examination including mitral annular tissue Doppler. CONCLUSIONS: 1. Borderline concentric left ventricular hypertrophy. Normal regional left ventricular (LV) wall motion and wall thickening. Normal left ventricular (LV) systolic function. Left ventricular ejection fraction (LVEF) 50% by visual estimate. Left ventricular (LV) diastolic function may not be adequately determined due to presence of atrial fibrillation. 2. Suggestive of moderate elevation of estimated right ventricle systolic pressure (40 mmHg). Normal right ventricle size and systolic function. Moderate right atrial dilatation. Moderate tricuspid regurgitation. 3. Moderate left atrial dilatation. 4. Moderate aortic valve sclerosis of a 3-cuspid aortic valve. No aortic stenosis or regurgitation. 5. Moderate mitral annular calcification. Very mild mitral regurgitation. No mitral stenosis. 6. No pericardial effusion. 7. Right pleural effusion. MTDD
[2020-01-15] MEDS: SENNA 8.6 MG TAB (SENOKOT) PO SCH (13:56)
[2020-01-15 14:00] VITALS: BP 132/96
--- NOTE | 2020-01-15 15:33 | IPNPDOC ---
Subjective Date Seen The patient was seen on 01/15/20. Subjective Chief Complaint/HPI Mr. Fairchild is an 84 year old male with diastolic CHF, aortic stenosis s/p TAVR, hypothyroidism, DM2, and COPD here with orthopnea and worsening dyspnea. He feels better with the scheduled duonebs. He tells me he used to have a scheduled inhaler, but does not know which one. Otherwise denies fever, chest pain, abdominal pain, or dysuria. Objective Physical Examination General Exam: Positive: Alert, Cooperative, Mild Distress (respiratory distress, difficulty completing a full sentence) Eye Exam: Positive: EOMI ENT Exam: Positive: Mucous membr. moist/pink, Tongue Midline Neck Exam: Positive: Supple Chest Exam: Positive: Diminished Heart Exam: Positive: Rate Normal, Regular Rhythm Abdomen Exam: Positive: Normal bowel sounds, Soft Extremity Exam: Negative: Edema Skin Exam: Positive: Nl turgor and temperature Neuro Exam: Positive: Cranial Nerves 3-12 NL Psych Exam: Positive: Mental status NL, Mood NL Assessment /Plan Assessment Mr. Fairchild is an 84 year old male with diastolic CHF, aortic stenosis s/p TAVR, and COPD here with orthopnea and worsening dyspnea secondary to COPD exacerbation from right lower lobe pneumonia. Pneumonia will be worked up with blood cultures, sputum cultures, urinary legionella antigen, and urinary strep pneumo antigen. He will be treated for CAP with ceftriaxone and azithromycin. For the COPD exacerbation he will be given IV solumedrol and duonebs. Looking through the medication list, he is not on COPD medication except albuterol as a rescue inhaler. He tells me he does have COPD and did follow pulmonary in the past. He confirms that the only puffer he has at home was albuterol. I spoke with them that it would be important to follow up with pulmonary in the future for evaluation of COPD and COPD management. Plan/VTE VTE Prophylaxis Ordered?: Yes Plan 1. COPD exacerbation 2/2 PNA -Wheezing with increase in dyspnea and sputum -IV antibiotics, IV steroids, and duonebs -He is only on albuterol at home. May benefit from LAMA on discharge. He should follow up with pulmonary for evaluation/management of COPD -Better with scheduled duonebs 2. PNA -CXR demonstrates right lower lobe PNA -Produces yellow sputum -Work up with blood cultures, sputum culture, legionella antigen, strep pneumo antigen -Empirically on ceftriaxone and azithromycin. On probiotic 3. Diastolic CHF -Last echocardiogram was in 2019 -He reports orthopnea, but appears to be euvolemic -Echocardiogram demonstrated EF of 50%, unable to determine diastolic dysf unction -Continue diuretics 4. Pulmonary hypertension -May contribute to dyspnea -Right ventricle systolic pressure estimated to be 48mmHg -Continue diuretics 5. Aortic stenosis s/p TAVR -Continue Eliquis 6. Atrial fibrillation -Rate controlled -Albuterol may increase HR -Continue Coreg and Apixaban -Apixaban appropriately dosed (Age >80 and Creatine >1.5 qualifies for half dose) 7. BPH -Continue Tamsulosin 8. Hypothyroidism -Continue levothyroxine 9. DVT ppx -Already on apixaban Disposition: If continues to improve, possible discharge tomorrow VS, I&O, 24H, Doris Vital Signs/I&O Vital Signs Date Time Temp Pulse Resp B/P (MAP) Pulse Ox O2 Delivery O2 Flow Rate FiO2 01/15/20 14:00 97.8 113 20 132/96 (108) 95 Room Air 01/13/20 04:45 97 I&O- Last 24 Hours up to 6 AM 01/15/20 06:00 Intake Total 1415 ml Output Total 350 ml Balance 1065 ml Laboratory Data 24H LABS Laboratory Tests 2 01/14/20 20:45: Bedside Glucose (Misc Panel) 294H 01/15/20 06:55: Bedside Glucose (Misc Panel) 150H 01/15/20 07:04: Nucleated Red Blood Cells % (auto) 0.0, Anion Gap 9, Glomerular Filtration Rate 23.2L, Calcium Level 8.5L 01/15/20 11:35: Bedside Glucose (Misc Panel) 314H CBC/BMP Laboratory Tests 01/15/20 07:04 Microbiology Microbiology 01/13/20 Blood Culture - Preliminary, Resulted No Growth after 48 hours. All Specime... 01/13/20 Blood Culture - Preliminary, Resulted No Growth after 48 hours. All Specime... NICOLAS BECERRA DO Jan 15, 2020 15:33
[2020-01-15] MEDS ORDERED: SPIR12.9 INH (16:52)
[2020-01-15] MEDS: allopurinoL 300 MG TAB PO SCH (21:40)
[2020-01-15] MEDS: TAMSULOSIN 0.4 MG CAP PO SCH (21:40)
[2020-01-16] MEDS: IPRATROPIUM 0.5MG/ALBUTEROL 2.5MG INH SOL UD 3ML (DUONEB) NEB SCH ×3 (00:08→07:16)
[2020-01-16 00:51] VITALS: BP 131/75
[2020-01-16] MEDS: CEPACOL LOZENGE PO PRN (00:54)
[2020-01-16] MEDS: methylPREDNISolone 40MG 1ML VIAL IV SCH (05:51)
[2020-01-16] MEDS: LEVOTHYROXINE 25MCG TABLET (0.025MG) PO SCH (05:51)
[2020-01-16 05:56] VITALS: BP 131/74
[2020-01-16 07:04] LABS: HEMATOCRIT 34.6 % (42.0-52.0); HEMOGLOBIN 11.3 g/dl (13.5-17.5); MEAN CORPUSCULAR HEMOGLOBIN 32.9 pg (27.0-33.0); MEAN CORPUSCULAR HGB CONC 32.7 g/dl (32.0-36.5); MEAN CORPUSCULAR VOLUME 100.9 fl (80.0-96.0); PLATELET COUNT, AUTOMATED 189 10^3/uL (150-450); RED BLOOD COUNT 3.43 10^6/uL (4.30-6.10); WHITE BLOOD COUNT 10.6 10^3/uL (4.0-10.0)
[2020-01-16 07:20] LABS: CALCIUM LEVEL 8.5 MG/DL (8.8-10.2); CREATININE FOR GFR 2.71 MG/DL (0.70-1.30)
[2020-01-16] MEDS: HumaLOG INSULIN (NovoLOG) PER UNIT SC SCH ×2 (07:30→12:00)
[2020-01-16] MEDS: cefTRIAXone SOD 1 GM in D5W MINI-BAG PLUS 50 ML IV SCH (08:41)
[2020-01-16] MEDS: FERROUS GLUCONATE 324 MG TAB PO SCH (08:42)
[2020-01-16] MEDS: TORSEMIDE 10 MG TABLET PO SCH (08:42)
[2020-01-16] MEDS: LACTOBACILLUS ACIDOPHILUS CAP (BACID) PO SCH (08:42)
[2020-01-16 08:43] VITALS: BP 134/76
[2020-01-16] MEDS: ATORVASTATIN 20 MG TAB PO SCH (08:43)
[2020-01-16] MEDS: DOCUSATE SODIUM 100 MG CAP PO SCH (08:43)
[2020-01-16] MEDS: CARVedilol 12.5 MG TAB PO SCH (08:43)
[2020-01-16] MEDS: APIXABAN 2.5 MG TAB (ELIQUIS) PO SCH (08:43)
[2020-01-16] MEDS: ASPIRIN 81 MG ENTERIC TAB PO SCH (08:43)
[2020-01-16] MEDS: MULTIVITAMINS/MINERALS THERAP 1 TAB PO SCH (08:43)
[2020-01-16] MEDS: SENNA 8.6 MG TAB (SENOKOT) PO SCH (08:44)
[2020-01-16] MEDS: AZITHROMYCIN INJ 500 MG, VIAL MATE ADAPTER 1 EACH in D5W 250 ML IV SCH (08:44)
[2020-01-16] MEDS: MAGNESIUM CHLORIDE 64 MG TABCR (SLO MAG) PO SCH (08:47)
[2020-01-16] MEDS ORDERED: AZIT500T5 PO (09:49)
[2020-01-16] MEDS ORDERED: DOCU100C16 PO (09:49)
[2020-01-16] MEDS ORDERED: CEFD1CAP8 PO (09:49)
[2020-01-16] MEDS ORDERED: PRED10TA2 PO (09:49)
[2020-01-16] MEDS ORDERED: PROAAER10 INH (09:49)
--- NOTE | 2020-01-16 22:38 | DS.PDOC ---
Discharge Summary General Date of Admission Jan 13, 2020 at 09:35 Date of Discharge Jan 16, 2020 Attending Physician: NICOLAS BECERRA DO Discharge Summary PROCEDURES PERFORMED DURING STAY: None. ADMITTING DIAGNOSES: 1. COPD exacerbation 2/2 PNA 2. PNA 3. Diastolic CHF 4. Pulmonary hypertension 5. Aortic stenosis s/p TAVR 6. Atrial fibrillation 7. BPH 8. Hypothyroidism DISCHARGE DIAGNOSES: 1. COPD exacerbation 2/2 PNA 2. PNA 3. Diastolic CHF 4. Pulmonary hypertension 5. Aortic stenosis s/p TAVR 6. Atrial fibrillation 7. BPH 8. Hypothyroidism COMPLICATIONS/CHIEF COMPLAINT: Pneumonia. HISTORY OF PRESENT ILLNESS: Mr. Fairchild is an 84 year old male with diastolic CHF, aortic stenosis s/p TAVR, hypothyroidism, DM2, and COPD here with orthopnea and worsening dyspnea. For the past 3 months, he has been having progressive dyspnea. He was recently here for CHF exacerbation in 2019. He tells me that due to his diuretics, he is usually up to urinate 2 to 3 times a night. When we walks back to bed, he becomes dyspneic, but after lying still, it would resolve. This past evening, he was trying to lie still, but it did not improve his breathing. He reports wheezing with productive cough with yellow phlegm which has increased in the past few days. He tried 3 puff of his albuterol which did not help. so he came to the ED. Prior to this, he has not had travel or sick contact. He stay at home except to go to doctor visits. He lives with his son who works as a teacher/professor. His is in better health and goes out to shop for groceries. While in the ED, he was saturating around 94 at room air. He had tachypnea and tachycardia, but otherwise, no fever. CXR demonstrated infiltrate in the right lower lobe. He was given 40mg IV Lasix. He was also given 125mg IV solumedrol, azithromycin, ceftriaxone, and Duonebs. In the ED, I asked him about his code status. He wanted to defer until he spoke with his son (Merlin Fairchild, same name). He was okay being full code. In the afternoon, I spoke with Merlin Fairchild (son, ) and the patient. He was indecisive, but his main goal was to not by suffocating like what happened early this morning. If his heart or lungs were to stop, he would like to pass comfortably and be given medication to make him comfortable at that time. He asked if he could change his mind later, and I explained that he could. He dec ided to be DNR/DNI today with the son on the phone being a witness to the conversation. Son was agreeable to this. HOSPITAL COURSE: Day after his admission, he was still feeling dyspneic. His duonebs where changed from PRN to scheduled. He tells me that in the past, he used to follow with a mid level java developer and they had him on a scheduled and PRN inhaler, but he does not remember the names. The day after, he felt like he could breath better with the scheduled duonebs. Today, he felt ready for home. He denied any fever/chills, chest pain, dyspnea, abdominal pain, or dysuria. He was subsequently discharged home with a LAMA, a PRN KESHAV, a steroid taper, and antibiotics. DISCHARGE MEDICATIONS: Please see below. ALLERGIES: Please see below. PHYSICAL EXAMINATION ON DISCHARGE: VITAL SIGNS: Please see below. GENERAL: Comfortable, in no apparent distress HEENT: Head normocephalic, atraumatic, EOMI, Sclera clear NECK: Supple CARDIOVASCULAR EXAMINATION: Regular rate and rhythm RESPIRATORY EXAMINATION: Lungs clear to auscultation bilaterally ABDOMINAL EXAMINATION: Soft, nontender, normal bowel sounds EXTREMITIES: Mild pitting edema bilaterally NEUROLOGICAL EXAMINATION: CN 3-12 grossly intact PSYCHIATRIC EXAMINATION: Normal mood and affect LABORATORY DATA: Please see below. IMAGING: CXR Mild infiltrate in the right lower lobe. Consistent with pneumonia. PROGNOSIS: Good ACTIVITY: As tolerated. DIET: Carbohydrate consistent DISCHARGE PLAN: Home DISPOSITION: Home, Self-Care. DISCHARGE INSTRUCTIONS: 1. Follow up with your PCP within 5 days 2. Continue your steroid taper and antibiotic to completion 3. Consider following up with a mid level java developer for evaluation and management of COPD DISCHARGE CONDITION: Stable. Total time spent on discharge planning, discharge summary, and medication reconciliation: 40 minutes Vital Signs/I&Os Vital Signs Date Time Temp Pulse Resp B/P (MAP) Pulse Ox O2 Delivery O2 Flow Rate FiO2 01/16/20 08:43 96 134/76 01/16/20 05:56 97.6 18 96 Room Air 01/13/20 04:45 97 I&O- Last 24 Hours up to 6 AM 01/16/20 06:00 Intake Total 2095 ml Output Total 400 ml Balance 1695 ml Laboratory Data Labs 24H Laboratory Tests 2 01/16/20 06:39: Nucleated Red Blood Cells % (auto) 0.0, Anion Gap 7L, Glomerular Filtration Rate 24.0L, Calcium Level 8.5L 01/16/20 11:20: Bedside Glucose (Misc Panel) 270H CBC/BMP Laboratory Tests 01/16/20 06:39 FSBS Laboratory Tests Test 01/16/20 11:20 Range/Units Bedside Glucose (Misc Panel) 270 83-110 MG/DL Microbiology Microbiology 01/13/20 Blood Culture - Preliminary, Resulted No Growth after 72 hours. All specime... 01/13/20 Blood Culture - Preliminary, Resulted No Growth after 72 hours. All specime... Discharge Medications Scheduled Allopurinol (Zyloprim) 300 Mg Tab, 300 MG PO QHS, (Reported) Apixaban (Eliquis) 2.5 Mg Tab, 2.5 MG PO BID, (Reported) Aspirin (Aspirin EC) 81 Mg Tab, 81 MG PO DAILY, (Reported) Atorvastatin Calcium (Atorvastatin Calcium) 40 Mg Tab, 40 MG PO DAILY, (Reported) Azithromycin (Azithromycin) 500 Mg Tablet, 500 MG PO DAILY Carvedilol (Carvedilol) 12.5 Mg Tablet, 12.5 MG PO BID, (Reported) Cefdinir (Cefdinir) 300 Mg Capsule, 300 MG PO BID Docusate Sodium (Docusate Sodium) 100 Mg Capsule, 100 MG PO BID Ferrous Gluconate (Ferrous Gluconate) 324 Mg Tablet, 324 MG PO DAILY, (Reported) Levothyroxine Sodium (Synthroid) 25 Mcg Tab, 25 MCG PO DAILY, (Reported) Magnesium Chloride (Mag64) 64 Mg Tablet.dr, 64 MG PO DAILY, (Reported) Multivit-Mins/Iron/Folic/Lycop (Centrum Men's Tablet) 1 Each Tablet, 1 TAB PO DAILY, (Reported) Prednisone (Prednisone) 10 Mg Tablet, 10 MG PO TAPER Take 4 tabs daily x 3 days, then 3 tabs daily x 3 days, then 2 tabs daily x 3 days, then 1 tab daily x 3 days and stop Tamsulosin HCl (Flomax) 0.4 Mg Capsule, 0.4 MG PO QHS, (Reported) Tiotropium [place] (Spiriva Respimat) 4 Gm Mist.inhal, 2 INHALATION INH DAILY Torsemide (Torsemide) 20 Mg Tablet, 30 MG PO DAILY, (Reported) Vitamin B Complex (Vitamin B Complex) 1 Each Tablet, 1 TAB PO DAILY, (Reported) Scheduled PRN Acetaminophen (Acetaminophen) 325 Mg Tablet, 650 MG PO Q4H PRN for PAIN, (Reported) Albuterol Sulfate (Proair Hfa) 8.5 Gm Hfa.aer.ad, 2 PUFF INH Q4H PRN for SOB/WHEEZING Allergies Coded Allergies: NSAIDS (Non-Steroidal Anti-Inflamma (Unverified Allergy, Unknown, 11/30/19) TAKE ASPIRIN AT HOME: NOT A CLASS ALLERGY Penicillins (Verified Allergy, Unknown, 08/09/18) NICOLAS BECERRA DO Jan 16, 2020 22:38
== END 2020-01-16 13:05 | disposition home or self-care (01) | DRG 190 ==
LOC: M ED 04:23 → M ED INP 09:35 → ENRESERV 12:20 → M MS5PR 12:40
PROVIDERS: ADMIT Internal Medicine; ATTEND Internal Medicine
DX: J44.0 Chronic obstructive pulmonary disease with (acute) lower respiratory infection (principal); J18.9 Pneumonia, unspecified organism; I50.32 Chronic diastolic (congestive) heart failure; I13.0 Hypertensive heart and chronic kidney disease with heart failure and stage 1 through stage 4 chronic kidney disease, or unspecified chronic kidney disease; J44.1 Chronic obstructive pulmonary disease with (acute) exacerbation; I35.0 Nonrheumatic aortic (valve) stenosis; E03.9 Hypothyroidism, unspecified; E11.22 Type 2 diabetes mellitus with diabetic chronic kidney disease; Z95.2 Presence of prosthetic heart valve; Z66 Do not resuscitate; Z79.01 Long term (current) use of anticoagulants; Z79.82 Long term (current) use of aspirin; Z79.899 Other long term (current) drug therapy; Z88.0 Allergy status to penicillin; Z88.6 Allergy status to analgesic agent; I48.91 Unspecified atrial fibrillation; N18.30 Chronic kidney disease, stage 3 unspecified; I27.20 Pulmonary hypertension, unspecified; G47.33 Obstructive sleep apnea (adult) (pediatric); D50.9 Iron deficiency anemia, unspecified; Z87.891 Personal history of nicotine dependence; N40.0 Benign prostatic hyperplasia without lower urinary tract symptoms; Z20.828 Contact with and (suspected) exposure to other viral communicable diseases

== ENCOUNTER 2020-07-21 11:04 | Emergency (ER) | payer MEDICARE, OTHER ==
[~2020-07-21] VITALS: Ht 172.7 cm; Wt 88.6 kg
[~2020-07-21 11:04] MED LIST changes: +ACET32TAB PO; +AZIT500T5 PO; +CEFD1CAP8 PO; +CENT1TAB2 PO; +DOCU100C16 PO; +FERR324T21 PO; +FINA5TAB2 PO; +LISI10TA22 PO; -LISI10TA4 PO; +MAGN64TASA PO; -NON-325T5 PO; +PRED10TA2 PO; +PROAAER10 INH; +SPIR12.9 INH; +VITATAB73 PO
[2020-07-21 13:14] LABS: BASO % 0.5 % (0.0-1.0); EOS # 0.5 10^3/uL (0.0-0.5); EOS % 5.8 % (0.0-3.0); HEMATOCRIT 38.3 % (42.0-52.0); HEMOGLOBIN 12.4 g/dl (13.5-17.5); LYMPH # 1.3 10^3/uL (1.5-5.0); LYMPH % 15.7 % (24.0-44.0); MEAN CORPUSCULAR HEMOGLOBIN 33.1 pg (27.0-33.0); MEAN CORPUSCULAR HGB CONC 32.4 g/dl (32.0-36.5); MEAN CORPUSCULAR VOLUME 102.1 fl (80.0-96.0); MONO # 0.7 10^3/uL (0.0-0.8); MONO % 8.8 % (2.0-8.0); NEUTROPHILS # 5.6 10^3/uL (1.5-8.5); NEUTROPHILS % 68.8 % (36.0-66.0); PLATELET COUNT, AUTOMATED 153 10^3/uL (150-450); RED BLOOD COUNT 3.75 10^6/uL (4.30-6.10); WHITE BLOOD COUNT 8.1 10^3/uL (4.0-10.0)
[2020-07-21 13:36] LABS: C REACTIVE PROTEIN QUANTITATIV 3.67 MG/DL (0.00-0.30); CALCIUM LEVEL 9.2 MG/DL (8.8-10.2); CREATININE FOR GFR 2.44 MG/DL (0.70-1.30); GLOMERULAR FILTRATION RATE 27.1 (>35)
--- NOTE | 2020-07-21 13:40 | REP ---
INDICATION: severe redness swelling pain. COMPARISON: None TECHNIQUE: Ultrasonography of each testicle FINDINGS: The right testicle measures 5.5 x 2.6 x 3.5 cm and the left testicle measures 4.9 x 2.8 x 2.8 cm. Inferior to the right testicle within the right hemiscrotal sac there is a complex fluid collection which measures 9.1 x 8.5 x 5.6 cm. No solid masses are seen in either testicle. The right testicular RI is 0.66 and left is 0.54 Color Doppler shows vascular flow within each testicle IMPRESSION: Rather large complex appearing right-sided hydrocele. Consider urological consultation. <Electronically signed by Hardy Thakur > 07/21/20 [id number]
[2020-07-21 14:01] LABS: ERYTHROCYTE SEDIMENTATION RATE 56 mm/hr (0-20)
[2020-07-21 16:37] VITALS: BP 143/86
--- NOTE | 2020-07-21 19:46 | ED PDOC ---
Post-Departure Follow-Up scrotal us faxed to [facility] for fu Markos Partida MD July 21, 2020 19:46
== END 2020-07-21 16:38 | disposition home or self-care (01) ==
LOC: M ED 11:04 → EEVIPCON 11:04 → M ED 16:38
DX: N50.89 Other specified disorders of the male genital organs (principal); N43.3 Hydrocele, unspecified; E11.9 Type 2 diabetes mellitus without complications; I27.20 Pulmonary hypertension, unspecified; E03.9 Hypothyroidism, unspecified; J44.9 Chronic obstructive pulmonary disease, unspecified; G47.33 Obstructive sleep apnea (adult) (pediatric); Z86.73 Personal history of transient ischemic attack (TIA), and cerebral infarction without residual deficits; Z88.0 Allergy status to penicillin; Z88.6 Allergy status to analgesic agent; Z79.899 Other long term (current) drug therapy

== ENCOUNTER → 2020-12-01 | Outpatient (REF) | payer MEDICARE, OTHER | LOC: M LAB REF 17:46 | PROVIDERS: ATTEND Internal Medicine Nephrology | DX: N18.32 Chronic kidney disease, stage 3b (principal) ==

== ENCOUNTER 2021-01-24 16:33 | Inpatient (IN) | payer MEDICARE, OTHER ==
[~2021-01-24] VITALS: Ht 172.7 cm; Wt 82.0 kg
--- OUTSIDE RECORDS SUMMARY | 2021-01-24 16:42 | CCD | Continuity of Care Document ---
Author Author Merlin CIFUENTES D.O. Organization Unknown Address [address] [place] [id number] Phone [phone] Problems Active Problems Provider Date Hyperlipidemia Onset: 01/16/2001 Hyperplasia of prostate Gurjit Cifuentes D.O., FAAFP Onset: 01/16/2001 Chronic obstructive lung disease Gurjit Cifuentes D.O., FAAF P Onset: 01/30/2001 Note: RESTRICTIVE COMPONENT Gout Gurjit Cifuentes D.O., FAAFP Onset: 04/08 Diverticular disease of colon Gurjit Cifuentes D.O., FAAFP O nset: 06/23/2006 Degenerative joint disease involving multiple joints K concepción Cifuentes D.O., FAAFP Onset: 02/05/2008 Hypertensive heart disease without congestive heart fa ilure Gurjit Cifuentes D.O., FAAFP Onset: 07/25/2013 Atrial flutter Gurjit Cifuentes D.O., FAAFP Onset: 07/06 Sinus node dysfunction Gurjit Cifuentes D.O., FAAFP Onset: 0 07/25/2013 Spinal stenosis of lumbar region Gurjit Cifuentes D.O., FAAF P Onset: 07/25/2013 Sciatica Gurjit Cifuentes D.O., FAAFP Onset: 07/06 Microscopic hematuria Gurjit Cifuentes D.O., FAAFP Onset: Note: W/U NEG Raised prostate specific antigen Gurjit Cifuentes D.O., FAAF P Onset: 11/13/2014 Chronic kidney disease stage 3 Gurjit Cifuentes D.O., FAAFP Onset: 08/22/2017 Abnormal gait Gurjit Cifuentes D.O., FAAFP Onset: 08/06 Chronic kidney disease stage 4 Gurjit Cifuentes D.O., FAAFP Onset: 09/11/2019 Biventricular congestive heart failure Gurjit Cifuentes D.O. , FAAFP Onset: 12/21/2019 Social History Type Date Description Comments Sex Unknown Tobacco Use Start: Unknown End: Unknown Former Cigarette Smo ker 1 Pack Daily for 40 years ETOH Use current.liquor.daily.single drin ks.2 Tobacco Use Start: Unknown End: Unknown Patient is a former smoker Smoking Status Reviewed: 06/24/20 Patient is a former smoker Allergies and adverse reactions Active Allergies Criticality Reaction | Severity Comments Date Penicillin Unable to assess criticality 05/21/1999 NSAIDS Unable to assess criticality renal compro mise 08/22/2017 Medications Active Medications SIG Qnty Indications Ordering Provide r Date Nystatin 487052Adwb/GM Cream apply three times a day as needed rash to scrotum 30gm Marco Mendoza M.D. 07/17/2020 Docusate Sodium 100mg Tablets 1 by mouth twice a day as needed constipation Gurjit peñaloza D.O., FAAFP 01/25/2020 Spiriva Respimat 2.5mcg/Act Aeroso l 2 puffs by mouth once a day 12gm Gurjit Cifuentes D.O., FAAFP 01/24/2020 Proair HFA 108(90Base) mcg/Act Aer osol 2 puffs inhaled three times a day as needed 25.5gm Chloe Cifuentes D.O., FAAFP 05/07/2019 Atorvastatin Calcium 40mg Tablets 1 by mouth every day 90tabs Gurjit Cifuentes D.O., FAAFP Carvedilol 12.5mg Tablets take one tablet by mouth twice a day 180tabs Gurjit Cifuentes D.O., FAAF P 10/09/2018 Ferrous Gluconate 324(38Fe) mg Tab lets 1 by mouth once every day 60tabs Gurjit Cfiuentes D.O., F AAFP 09/04/2018 Levothyroxine Sodium 25mcg Tablets 1 by mouth every day 90tabs Gurjit Cifuentes D.O., [facility] 06/2018 Onetouch Ultra Blue Strips Use Twice A Day And as Needed (DX: E11.9) One Touch Ultra Test Strips 300units [facility]., [facility] 08/18/2015 Allopurinol 300mg Tablets take 1 tablet daily 90tabs [facility]uentes D.O., [facility] Tylenol Extra Strength 500mg Table ts take 1 by mouth twice a day as needed OTC Unknown Symbicort 160-4.5mcg/Act Aerosol 2 puffs bid. 30.6gm Gurjit Cifuentes D.O., [facility] Moderna Covid-19 Vaccine 100mcg/0.5ML Suspension pt recieved both Unknown Torsemide 10mg Tablets 3 by mouth every day (30 mg total) from hospital d/c 01/16/20 270tabs Gurjit Cifuentes D.O., [facility] Vitamin B12 500mcg Tablets 1 by mouth every day Unknown Mag64 64mg Tablets DR 1 by mouth every day Unknown Tamsulosin HCL 0.4mg Capsules 1 by mouth every day 90caps [facility]uentes D.O., [facility] Aspirin 81mg Tablets DR 1 by mouth every day Unknown Centrum Adults Tablets 1 po qd OTC Unknown Eliquis 2.5mg Tablets 1 by mouth twice a day 180tabs Gurjti [facility]ifuentes D.O., [facility] History Medications Nystatin Powder apply three times a day as needed rash to scrotum 3units Marco Mendoza M.D . 07/15/2020 - 07/17/2020 Medications Administered in Office Medication SIG Qnty Indications Ordering Provider Date Injection (SC)/(Im) Injection Gurjit Cifuentes D.O., [facility] 12/28/2012 Injection (SC)/(Im) Injection Gurjit Cifuentes D.O., [facility] 09/18/2012 Immunizations CPT Code Status Date Vaccine Lot # [id number] Given 01/01/2021 Influenza Virus Vaccine, Quadrivalent, Slit Virus, Im Use 3Y & Up [id number] 98775 Given 11/08/2019 Influenza Virus Vaccine, Quadrivalent, Slit Virus, Im Use 3Y & Up [id number] 06818 Given 11/27/2018 Influenza Virus Vaccine, Quadrivalent, Slit Virus, Im Use 3Y & Up [id number] 21974 Given 11/23/2017 Influenza Virus Vaccine, Quadrivalent, Slit Virus, Im Use 3Y & Up [id number] 42421 Given 11/17/2016 Influenza Virus Vaccine, Quadrivalent, Slit Virus, Im Use 3Y & Up [id number] 22801 Given 11/18/2015 Influenza Vaccin e (Fluzone) 3Yrs Of Age Or Older Medicare Plans [id number] 54226 Given 11/13/2014 Influenza Vaccin e (Fluzone) 3Yrs Of Age Or Older Medicare Plans [id number] 57247 Given 01/30/2014 Influenza Vaccin e (Fluzone) 3Yrs Of Age Or Older Medicare Plans [id number] 60019 Given 01/22/2013 Pneumococcal Immunization [id number] 26117 Given 12/28/2012 Influenza Vaccin e (Fluzone) 3Yrs Of Age Or Older Medicare Plans 99088 Given 12/28/2012 Influenza Virus Vac. Split Virus Individuals 3 Years And Above [id number] 29430 Given 01/05/2012 Influenza Vaccin e (Fluzone) 3Yrs Of Age Or Older Medicare Plans 09736 Given 01/05/2012 Influenza Virus Vac. Split Virus Individuals 3 Years And Above [id number] 37917 Given 11/23/2010 Influenza Vaccin e (Fluzone) 3Yrs Of Age Or Older Medicare Plans 19949 Given 11/23/2010 Influenza Virus Vac. Split Virus Individuals 3 Years And Above [id number] 69062 Given 01/23/2010 Influenza Virus Vac. Split Virus Individuals 3 Years And Above [id number] 25832 Given 12/03/2008 Influenza Virus Vac. Split Virus Individuals 3 Years And Above [id number] 23416 Given 02/05/2008 Influenza Virus Vac. Split Virus Individuals 3 Years And Above [id number] 51511 Given 01/25/2007 Influenza Virus Vac. Split Virus Individuals 3 Years And Above [id number] 32420 Given 01/29/2005 Influenza Virus Vac. Split Virus Individuals 3 Years And Above 77485 Given 01/17/2002 Pneumococcal Immunization 41326 Given 01/17/2002 Influenza Virus Vac. Split Virus Individuals 3 Years And Above Vital Signs Date Vital Result Comment 01/01/2021 1:19pm BP Systolic 122 mmHg BP Diastolic 60 mmHg Body Temperature 97.3 F Heart Rate 64 /min Respiratory Rate 18 /min Height 70 inches 5'10" Weight 183.00 lb [place] Body Weight 166 lb BMI (Body Mass Index) 26.3 kg/m2 O2 % BldC Oximetry 100 % 09/24/2020 9:55am BP Systolic 112 mmHg BP Diastolic 66 mmHg Body Temperature 97.5 F Heart Rate 90 /min Respiratory Rate 18 /min Height 70 inches 5'10" Weight 191.00 lb [place] Body Weight 166 lb BMI (Body Mass Index) 27.4 kg/m2 O2 % BldC Oximetry 99 % Results Test Acquired Date Facility Test Result H/L Range Note CBC 01/01/2021 [facility] WBC 5.9 10E3/uL 4.1 - 10.9 1 RBC 3.92 10E6/uL Low 4.20 - 6.30 HGB 13.3 g/dL 12.0 - 18.0 HCT 40.0 % 37.0 - 51.0 MCV 102.0 fL High 80.0 - 97.0 MCH 33.9 pg High 26.0 - 32.0 MCHC 33.3 g/dL 31.0 - 36.0 PLT 141 10E3/uL 140 - 440 RDW-CV 17.6 % High 11.5 - 14.5 Lym% 15.4 % 10.0 - 58.5 Neut% 67.0 % 37.0 - 92.0 MXD% 17.6 % 0.1 - 24.0 Lym# 0.9 10E3/uL 0.6 - 4.1 Neut# 4.0 % 2.0 - 7.8 MXD# 1.0 10E3/uL 0.0 - 1.8 MPV 10.0 fL 9.0 - 13.0 Laboratory test finding 01/01/2021 [facility] CK 36 U/L Low 39 - 308 CMP 01/01/2021 [facility] Glu 108 mg/dL 70 - 110 BUN 35 mg/dL High 8 - 23 Creat 2.4 mg/dL High 0.7 - 1.2 BUN/Creatinine Ratio 14.7 CALC Na 139 mmol/L 136 - 145 K 4.9 mmol/L 3.5 - 5.1 CL 100.9 mmol/L 98.0 - 107.0 Co2 27.2 mmol/L 22.0 - 29.0 CA 9.9 mg/dL 8.6 - 10.2 TP 6.1 g/dL Low 6.6 - 8.7 Alb 4.0 g/dL 3.5 - 5.2 A/G Ratio 1.9 CALC Globulin 2.1 CALC Alp 128.6 U/L 40 - 129 Alt (SGPT) 19 U/L 0 - 41 Ast (Sgot) 24 U/L 0 - 40 Tbili 0.42 mg/dL 0.0 - 1.2 Osmolality-Calculated 286.0 CALC Anion Gap 16 mmol/L eGFR 27 # Calc 2 eGFR Non-Afr. Croatian 24 # Calc 3 Lipid Panel 01/01/2021 [facility] Chol 122 mg/dL 0 - 200 Trig 113 mg/dL 35 - 200 HDL 36 mg/dL 35 - 55 LDL_C 63 Calc Low 75 - 129 Cho/HDL Ratio 3.4 CALC Laboratory test finding 01/01/2021 [facility] TSH <pending> U/A DIP [facility] 01/01/2021 [facility]ates Color Urine YELLOW Yellow Appearance CLEAR Clear Specific [place] 1.015 1.00-1.03 PH Urine 5.5 5.0-8.0 Glucose Urine NEG Negative Bilirubin Urine NEG Negative Ketones NEG Negative Blood Urine TRACE Negative Protein Urine 2+ High Negative Urobilinogen .2 EU/dl 0.2-1.0 Nitrite NEG Negative Leukocytes NEG Negative CMP 09/24/2020 [facility] Glu 113 mg/dL High 70 - 110 BUN 37 mg/dL High 8 - 23 Creat 2.9 mg/dL High 0.7 - 1.2 BUN/Creatinine Ratio 12.6 CALC Na 139 mmol/L 136 - 145 K 4.1 mmol/L 3.5 - 5.1 CL 102.8 mmol/L 98.0 - 107.0 Co2 23.0 mmol/L 22.0 - 29.0 CA 9.1 mg/dL 8.6 - 10.2 TP 6.1 g/dL Low 6.6 - 8.7 Alb 4.0 g/dL 3.5 - 5.2 A/G Ratio 1.9 CALC Globulin 2.1 CALC Alp 120.8 U/L 40 - 129 Alt (SGPT) 21 U/L 0 - 41 Ast (Sgot) 15 U/L 0 - 40 Tbili 0.49 mg/dL 0.0 - 1.2 Osmolality-Calculated 287.7 CALC Anion Gap 18 mmol/L eGFR 22 # Calc 4 eGFR Non-Afr. Croatian 19 # Calc 5 U/A DIP 09/24/2020 [facility] Color yellow QUAL Clarity clear QUAL Glucose-Ua Negative g/dL Negative Bilirubin,Urine Negative QUAL Negative Ketone Negative mg/dL Negative Blood - Ua Small QUAL Abnormal Negative pH 5.0 # 5.0 - 8.0 Protein 100 mg/dL Abnormal Negative Urobilinogen 0.2 NA 0.2 - 1.0 Nitrite Negative QUAL Negative Leukocyte Trace QUAL Abnormal Negative RBC-Ua 0-4/hpf # Abnormal 0 - 3 Epithelial Cells - Ua 0-3/LPF QUAL Bacteria - Ua rare QUAL Abnormal Negative WBC-Ua 3-5/HPF #/HPF Abnormal 0 - 5 Casts rare hyaline QUAL Laboratory test finding 09/24/2020 [facility] CK 50 U/L 39 - 308 Lipid Panel 09/24/2020 [facility] Chol 124 mg/dL 0 - 200 Trig 118 mg/dL 35 - 200 HDL 36 mg/dL 35 - 55 LDL_C 64 Calc Low 75 - 129 Cho/HDL Ratio 3.5 CALC CBC 09/24/2020 [facility] WBC 7.6 10E3/uL 4.1 - 10.9 RBC 3.85 10E6/uL Low 4.20 - 6.30 HGB 13.0 g/dL 12.0 - 18.0 HCT 38.7 % 37.0 - 51.0 MCV 100.5 fL High 80.0 - 97.0 MCH 33.8 pg High 26.0 - 32.0 MCHC 33.6 g/dL 31.0 - 36.0 PLT 163 10E3/uL 140 - 440 RDW-CV 17.5 % High 11.5 - 14.5 Lym% 17.2 % 10.0 - 58.5 Neut% 71.1 % 37.0 - 92.0 MXD% 11.7 % 0.1 - 24.0 Lym# 1.3 10E3/uL 0.6 - 4.1 Neut# 5.4 % 2.0 - 7.8 MXD# 0.9 10E3/uL 0.0 - 1.8 MPV 8.6 fL Low 9.0 - 13.0 Laboratory test finding 09/24/2020 [facility] T4, Free 1.66 ng/dL High 0.75 - 1.54 TSH 2.284 ulU/mL 0.60 - 4.8 Laboratory test finding 09/24/2020 [place] [address] [phone] Pro-BNP 4171 pg/mL High 0 - 450 Microalb/Creat Ratio 09/24/2020 [facility] Alb 150 mg/L Creatinine, Urine 50 mg/dL 10 - 300 A/C Ratio >300 mg/g High % Abnormal Culture Wound And Gram Stain 07/21/2020 [facility] ([facility]) [phone] Gram Stain (SEE NOTE) Normal 6 Wound Culture FULL REPORT IN L <SEE NOTE> Normal 7 Laboratory test finding 07/21/2020 [facility] ([facility]) [phone] Blood Culture No growth after <SEE NOTE> 8 Basic Metabolic Profile 07/21/2020 [facility] ([facility]) [phone] Glucose, Fasting 137 mg/dL High 70-100 Blood Urea Nitrogen 41 mg/dL High 7-18 Creatinine For GFR 2.44 mg/dL High 0.70-1.30 Glomerular Filtration Rate 27.1 Low >35 9 Sodium Level 142 mEq/L Normal 136-145 Potassium Serum 4.0 mEq/L Normal 3.5-5.1 Chloride Level 108 mEq/L High 98-107 Carbon Dioxide Level 29 mEq/L Normal 21-32 Anion Gap 5 mEq/L Low 8-16 Calcium Level 9.2 mg/dL Normal 8.8-10.2 Laboratory test finding 07/21/2020 [facility] ([facility]) [phone] C Reactive Protein Quantitativ 3.67 mg/dL High 0 .00-0.30 Lactic Acid Sepsis Protocol 1.4 mmol/L Normal 0.4-2.0 10 CBC With Differential 07/21/2020 [facility] (Interface) [phone] White Blood Count 8.1 10 Normal 4.0-10.0 Red Blood Count 3.75 10 Low 4.30-6.10 Hemoglobin 12.4 g/dL Low 13.5-17.5 Hematocrit 38.3 % Low 42.0-52.0 Mean Corpuscular Volume 102.1 fl High 80.0-96.0 Mean Corpuscular Hemoglobin 33.1 pg High 27.0-33.0 Mean Corpuscular HGB Conc 32.4 g/dL Normal 32.0-36.5 Red Cell Distribution Width 15.1 % High 11.5-14.5 Platelet Count, Automated 153 10 Normal 150-450 Neutrophils % 68.8 % High 36.0-66.0 Lymph % 15.7 % Low 24.0-44.0 [place] % 8.8 % High 2.0-8.0 Eos % 5.8 % High 0.0-3.0 Baso % 0.5 % Normal 0.0-1.0 Immature Granulocyte % 0.4 % Normal 0-3.0 Nucleated Red Blood Cell % 0.0 % Normal 0-0 Neutrophils # 5.6 10 Normal 1.5-8.5 Lymph # 1.3 10 Low 1.5-5.0 [place] # 0.7 10 Normal 0.0-0.8 Eos # 0.5 10 Normal 0.0-0.5 Baso # 0.0 10 Normal 0.0-0.2 Laboratory test finding 07/21/2020 [facility] (Interface) [phone] Erythrocyte Sedimentation Rate 56 mm/hr High 0 -20 1 NORMAL RANGES Age WBC RBC HGB HCT MCV PLT Adult M 4.1-10.9 4.20-6.30 12.0-18.0 37.0-51.0 80-97 140-440 Adult F 4.1-10.9 4.04-5.48 12.0-18.0 37.0-51.0 80-97 140-440 0 -1 Yr 5.0-20.0 3.9-5.9 15-18 MV: 44 MV: 91 MV: 277 2-9 Yr. 6.0-17.0 3.8-5.4 11-13 MV: 37 MV: 78 MV: 300 10 Yrs. 5.0-13.0 3.8-5.4 12-15 MV: 39 MV: 80 MV: 250 NOTE: * FOR ADULT BLACK MALES AND FEMALES, NORMAL WBC IS 2.9-7.7 K/ML * FOR ADULT BLACK MALES AND FEMALES, NORMAL RBC,HGB, AND HCT IS 5% LESS SOURCE FOR DATA: [employer] 1800 OPERATION MANUAL( AUTOMATED BLOOD COUNTS AND DIFF.) APPENDIX B-3 CHRONIC KIDNEY DISEASE STAGING PER NKF: MALE GFR INTERPRETATION: 20-49 YRS: >60 mL/min Normal 50-59 YRS: >56 mL/min Normal 60-69 YRS: >49 mL/min Normal 70-79 YRS: >42 mL/min Normal 80 and above >35 mL/min Normal FEMALE GRF INTERPRETATION: 20-39 YRS: >60 mL/min Normal 40-49 YRS: >58 mL/min Normal 50-59 YRS: >51 mL/min Normal 60-69 YRS: >45 mL/min Normal 70-79 YRS: >39 mL/min Normal 80 and above >32 mL/min NormalCLASSIFICATION CHOLESTEROL FOR ADULTS CHILDREN/ADOLESCENTS* DESIRABLE: <200 MG/DL <170 MG/DL BORDER-LINE HIGH RISK: 200-239 MG/DL 170-199 MG/DL HIGH RISK: >240 MG/DL >200 MG/DL CLASS. FOR PRIMARY LDL CHOL PREVENTION: LDL CHOL-CHILD/ADOLESCENTS* DESIRABLE: <130 MG/DL <110 MG/DL BORDERLINE-HIGH RISK: 130-159 MG/DL 110-129 MG/DL HIGH RISK: >160 MG/DL >130 MG/DL *CHILDREN AND ADOLESCENTS REPRESENTS INDIVIDUALA AGED 2-19 YEARS EXCLUSIVE. 2 CKD-EPI 3 CKD-EPI 4 CKD-EPI 5 CKD-EPI 6 MANY WBCS MODERATE GRAM POSITIVE COCCI IN PAIRS AND CLUSTERS 7 FULL REPORT IN LAB NOTES ([facility] and [place]). ORGANISM 1: KLEBSIELLA OXYTOCA ESBL QUANTITY OF GROWTH FEW ORGANISM 2: STAPHYLOCOCCUS AUREUS QUANTITY OF GROWTH MODERATE ORGANISM 3: CORYNEBACTERIUM SPECIES QUANTITY OF GROWTH MODERATE Many species of Coryneform bacteria are part of the normal omega of the skin and mucous membranes in humans. Repeated isolation or a coryneform bacterium growing in pure culture may require consultation with an infectious disease specialist. There are currently no susceptibility standards for these organisms. ORGANISM 1: KLEBSIELLA OXYTOCA ESBL ORGANISM 2: STAPHYLOCOCCUS AUREUS ORGANISM 3: CORYNEBACTERIUM SPECIES KLEBSIELLA OXYTOCA ESBL: REACTION TRIMETHOPRIM/SULFAMETHOXAZOLE IV 160mg TMP & 800mg SMXq6h <=20 S TRIMETHOPRIM/SULFAMETHOXAZOLE PO Bactrim DS Bid <=20 S AMPICILLIN IV 500mg q6h >=32 R AMPICILLIN PO 500mg q6h fasting >=32 R GENTAMICIN IV 80mg q8h <=1 S CEFAZOLIN IV 1gm q8h >=64 R LEVOFLOXACIN IV 500mg qd 0.5 S LEVOFLOXACIN PO 250mg qd 0.5 S LEVOFLOXACIN PO 500mg qd 0.5 S TOBRAMYCIN IV 80mg q8h <=1 S CEFTRIAXONE IV 1gm q24h <=1 R CEFTAZIDIME IV 1gm q8h <=1 R AMPICILLIN/SULBACTAM IV 1.5g q6h >=32 R PIPERACILLIN/TAZOBACTAM IV 2.25 gm q6h 8 S AZTREONAM IV 1gm q8h <=1 R ERTAPENEM IV 1gm qd <=0.5 S MEROPENEM IV 1 gm q8h <=0.25 S MEROPENEM IV 500 mg q8h <=0.25 S TIGECYCLINE IV 50mg q12h 4 I CEFEPIME IV 1 gm q12h <=1 R CEFEPIME IV 2 gm q12h <=1 R EXTD BRD SPCTRM BETA LACTAMASE IV NEGATIVE FOR ESBL STAPHYLOCOCCUS AUREUS: REACTION ICR (INDUCIBLE CC RESISTANCE) IV ICR TEST RESULT TETRACYCLINE PO 250 mg qid <=1 S PENICILLIN G IV 1 mu q6H 0.12 R PENICILLIN G IV 1 mu q6h 0.12 R PENICILLIN G PO 250mg q6h fasting 0.12 R TRIMETHOPRIM/SULFAMETHOXAZOLE IV 160mg TMP & 800mg SMXq6h <=10 S TRIMETHOPRIM/SULFAMETHOXAZOLE PO Bactrim DS Bid <=10 S ERYTHROMYCIN IV 500mg q6h <=0.25 S ERYTHROMYCIN PO 500mg q6h <=0.25 S GENTAMICIN IV 80mg q8h <=0.5 S CLINDAMYCIN IV 600mg q6h 0.25 S CLINDAMYCIN PO 150mg q6h 0.25 S NITROFURANTOIN PO 100mg BID <=16 S OXACILLIN IV 500mg q6h 0.5 S VANCOMYCIN IV 500mg q8h 1 S LINEZOLID (ZYVOX) IV 600MG Q12HR 2 S LINEZOLID (ZYVOX) PO 600MG Q12HR 2 S An isolate with a (+) POSITIVE ICR test is considered CLINDAMYCIN RESISTANT; however, clindamycin may still be effective in some patients. An isolate with a (-) NEGATIVE ICR test is considered CLIDAMYCIN SENSITIVE. Oxacillin result predicts susceptibility to all penicillinase-stable penicillins (Nafcillin, Dicloxacilin), Cephalosporins, Carbapenems, Amoxicillin/Clavulanate & Ampicillin/Sulbactam per C[facility] standards. 8 No growth after 72 hours . A ll specimens observed for 5 days. Results final at that time. No growth after 48 hours . All specimens observed for 5 days. Results final at that time. No growth after 24 hours . All specimens observed for 5 days. Results final at that time. NO GROWTH AFTER 5 DAYS 9 Units are mL/min/1.73 m2 Chronic Kidney Disease Staging per NKF: Stage I & II GFR >=60 Normal to Mildly Decreased Stage III GFR 30-59 Moderately Decreased Stage IV GFR 15-29 Severely Decreased Stage V GFR <15 Very Little GFR Left ESRD GFR <15 on [facility] 10 Y/N query for Sepsis Lactate Rule: Y Procedures Date Code Description Status 01/01/2021 90224 Office/Outpatient Established Mo d MDM 30-39 Min Completed 09/24/2020 22312 Office/Outpatient Established Mo d MDM 30-39 Min Completed 07/15/2020 86562 Office/Outpatient [facility] 20-29 Min Completed Medical Devices Description No Information Available Encounters Type Date Location Provider Dx Diagnosis Office Visit 01/01/2021 1:15p [place] [facility] Mario Gayle, FAAFP E78.5 Hyperlipidemia, unspecified J44.9 Chronic obstructive pulmonar y disease, unspecified N18.4 Chronic kidney disease, stag e 4 (severe) F41.1 Generalized anxiety disorder I48.0 Paroxysmal atrial fibrillati on I50.9 Heart failure, unspecified E03.9 Hypothyroidism, unspecified Z23 Encounter for immunization Office Visit 09/24/2020 9:40a [place] [facility] Marco Antonio Gayle, FAAFP E78.5 Hyperlipidemia, unspecified J44.9 Chronic obstructive pulmonar y disease, unspecified N18.4 Chronic kidney disease, stag e 4 (severe) I50.1 Left ventricular failure, un specified I48.0 Paroxysmal atrial fibrillati on F41.1 Generalized anxiety disorder Office Visit 07/15/2020 3:00p [place] [facility] Marco Mendoza M. D. B35.6 Tinea cruris Assessments Date Code Description Provider 01/01/2021 E78.5 Hyperlipidemia, unspecified Diallo Cifuentes D.O., FAAFP 01/01/2021 J44.9 Chronic obstructive pulmonary di sease, unspecified Gurjit Cifuentes D.O., FAAFP 01/01/2021 N18.4 Chronic kidney disease, stage 4 (severe) Gurjit Cifuentes D.O., FAAFP 01/01/2021 F41.1 Generalized anxiety disorder Joel Cifuentes D.O., FAAFP 01/01/2021 I48.0 Paroxysmal atrial fibrillation K concepción Cifuentes D.O., FAAFP 01/01/2021 I50.9 Heart failure, unspecified Bc Cifuentes D.O., FAAFP 01/01/2021 E03.9 Hypothyroidism, unspecified Diallo Cifuentes D.O., FAAFP 01/01/2021 Z23 Encounter for immunization Bc Cifuentes D.O., FAAFP 09/24/2020 E78.5 Hyperlipidemia, unspecified Diallo Cifuentes D.O., FAAFP 09/24/2020 J44.9 Chronic obstructive pulmonary di sease, unspecified Gurjit Cifuentes D.O., FAAFP 09/24/2020 N18.4 Chronic kidney disease, stage 4 (severe) Gurjit Cifuentes D.O., FAAFP 09/24/2020 I50.1 Left ventricular failure, unspec ified Gurjit Cifuentes D.O., FAAFP 09/24/2020 I48.0 Paroxysmal atrial fibrillation K concepción [facility]es [facility] 09/24/2020 F41.1 Generalized anxiety disorder Joel [facility] 07/15/2020 B35.6 Marco Matos M.D. Plan of Treatment Future Appointment(s):* 04/16/2021 8:30 am - Gurjit Cifuentes D.O., [facility] at [facility] Functional Status Description No Information Available Mental Status Description No Information Available Referrals Description No Information Available
--- OUTSIDE RECORDS SUMMARY | 2021-01-24 16:42 | CCD | Continuity of Care Document ---
Author Author Merlin CIFUENTES D.O. Organization Unknown Address [address] [place] [address] Phone [phone] Problems Active Problems Provider Date Hyperlipidemia Onset: [...] Qnty Indications Ordering Provide r Date Nystatin 422423Tgus/GM Cream apply three times a day as [...] by mouth once every day 60tabs Gurjit Cifuentes D.O., F AAFP 09/04/2018 Levothyroxine Sodium 25mcg Tablets 1 by mouth every day 90tabs Gurjit Cifuentes D.O., [facility] 06/2018 Onetouch Ultra Blue Strips Use Twice A Day And as Needed (DX: E11.9) One Touch Ultra Test Strips 300units Gurjit [facility]uentes D.O., [facility] 08/18/2015 Allopurinol 300mg Tablets take 1 tablet daily 90tabs Gurjit Cifuentes D.O., [facility] Tylenol Extra Strength 500mg Table ts take 1 by mouth twice a day as needed OTC Unknown Symbicort 160-4.5mcg/Act Aerosol 2 puffs bid. 30.6gm Gurjit Cifuentes D.O., [facility] Moderna Covid-19 Vaccine 100mcg/0.5ML Suspension pt recieved both Unknown Torsemide 10mg Tablets 3 by mouth every day (30 mg total) from hospital d/c 01/16/20 270tabs Gurjit Cifuentes D.O., [facility] Vitamin B12 500mcg Tablets 1 by mouth every day Unknown Mag64 64mg Tablets DR 1 by mouth every day Unknown Tamsulosin HCL 0.4mg Capsules 1 by mouth every day 90caps Gurjit Cifuentes D.O., [facility] Aspirin 81mg Tablets DR 1 by mouth every day Unknown Centrum Adults Tablets 1 po qd OTC Unknown Eliquis 2.5mg Tablets 1 by mouth twice a day 180tabs Gurjit Cifuentes D.O., [facility] History Medications Nystatin Powder apply three times a day as needed rash to scrotum 3units Marco Mendoza M.D . 07/15/2020 - 07/17/2020 Medications Administered in Office Medication SIG Qnty Indications Ordering Provider Date Injection (SC)/(Im) Injection Gurjit Cifuentes D.O., [facility] 12/28/2012 Injection (SC)/(Im) Injection Gurjit Cifuentes D.O., [facility] 09/18/2012 Immunizations CPT Code Status Date Vaccine Lot # [id number] Given 01/01/2021 Influenza Virus Vaccine, Quadrivalent, Slit Virus, Im Use 3Y & Up [id number] 21628 Given 11/08/2019 Influenza Virus Vaccine, Quadrivalent, Slit Virus, Im Use 3Y & Up [id number] 42146 Given 11/27/2018 Influenza Virus Vaccine, Quadrivalent, Slit Virus, Im Use 3Y & Up [id number] 66255 Given 11/23/2017 Influenza Virus Vaccine, Quadrivalent, Slit Virus, Im Use 3Y & Up [id number] 61090 Given 11/17/2016 Influenza Virus Vaccine, Quadrivalent, Slit Virus, Im Use 3Y & Up [id number] 82631 Given 11/18/2015 Influenza Vaccin e (Fluzone) 3Yrs Of Age Or Older Medicare Plans [id number] 50591 Given 11/13/2014 Influenza Vaccin e (Fluzone) 3Yrs Of Age Or Older Medicare Plans [id number] 11893 Given 01/30/2014 Influenza Vaccin e (Fluzone) 3Yrs Of Age Or Older Medicare Plans [id number] 75464 Given 01/22/2013 Pneumococcal Immunization [id number] 60012 Given 12/28/2012 Influenza Vaccin e (Fluzone) 3Yrs Of Age Or Older Medicare Plans 40762 Given 12/28/2012 Influenza Virus Vac. Split Virus Individuals 3 Years And Above [id number] 68721 Given 01/05/2012 Influenza Vaccin e (Fluzone) 3Yrs Of Age Or Older Medicare Plans 46916 Given 01/05/2012 Influenza Virus Vac. Split Virus Individuals 3 Years And Above [id number] 17079 Given 11/23/2010 Influenza Vaccin e (Fluzone) 3Yrs Of Age Or Older Medicare Plans 88634 Given 11/23/2010 Influenza Virus Vac. Split Virus Individuals 3 Years And Above [id number] 65919 Given 01/23/2010 Influenza Virus Vac. Split Virus Individuals 3 Years And Above [id number] 33430 Given 12/03/2008 Influenza Virus Vac. Split Virus Individuals 3 Years And Above [id number] 18400 Given 02/05/2008 Influenza Virus Vac. Split Virus Individuals 3 Years And Above [id number] 09192 Given 01/25/2007 Influenza Virus Vac. Split Virus Individuals 3 Years And Above [id number] 47192 Given 01/29/2005 Influenza Virus Vac. Split Virus Individuals 3 Years And Above 03415 Given 01/17/2002 Pneumococcal Immunization 85422 Given 01/17/2002 Influenza Virus Vac. Split Virus Individuals 3 Years And Above Vital Signs Date Vital Result Comment 01/01/2021 1:19pm BP Systolic 122 mmHg BP Diastolic 60 mmHg Body Temperature 97.3 F Heart Rate 64 /min Respiratory Rate 18 /min Height 70 inches 5'10" Weight 183.00 lb [place] Body Weight 166 lb BMI (Body Mass Index) 26.3 kg/m2 O2 % BldC Oximetry 100 % 09/24/2020 9:55am BP Systolic 112 mmHg BP Diastolic 66 mmHg Body Temperature 97.5 F Heart Rate 90 /min Respiratory Rate 18 /min Height 70 inches 5'10" Weight 191.00 lb [place] Body Weight 166 lb BMI (Body Mass [...] eGFR 27 # Calc 2 eGFR Non-Afr. Armenian 24 # Calc 3 Lipid Panel 01/01/2021 [facility] Chol 122 mg/dL 0 - 200 Trig 113 mg/dL 35 - 200 HDL 36 mg/dL 35 - 55 LDL_C 63 Calc Low 75 - 129 Cho/HDL Ratio 3.4 CALC Laboratory test finding 01/01/2021 [facility] TSH <pending> U/A DIP FPA 01/01/2021 [facility] Asso ciates Color Urine YELLOW Yellow Appearance CLEAR Clear Specific [place] 1.015 1.00-1.03 PH Urine 5.5 5.0-8.0 Glucose [...] eGFR 22 # Calc 4 eGFR Non-Afr. Armenian 19 # Calc 5 U/A DIP 09/24/2020 [...] 0.60 - 4.8 Laboratory test finding 09/24/2020 [place] [address] [phone] Pro-BNP 4171 pg/mL High 0 - 450 Microalb/Creat Ratio 09/24/2020 [facility] Alb 150 mg/L Creatinine, Urine 50 mg/dL 10 - 300 A/C Ratio >300 mg/g High % Abnormal Culture Wound And Gram Stain 07/21/2020 [facility] ([facility]) [phone] Gram Stain (SEE NOTE) Normal 6 Wound Culture FULL REPORT IN L <SEE NOTE> Normal 7 Laboratory test finding 07/21/2020 [facility] ([facility]) [phone] Blood Culture No growth after <SEE NOTE> 8 Basic Metabolic Profile 07/21/2020 [facility] ([facility]) [phone] Glucose, Fasting 137 mg/dL High 70-100 Blood [...] mg/dL Normal 8.8-10.2 Laboratory test finding 07/21/2020 [facility] ([facility]) [phone] C Reactive Protein Quantitativ 3.67 mg/dL High 0 .00-0.30 Lactic Acid Sepsis Protocol 1.4 mmol/L Normal 0.4-2.0 10 CBC With Differential 07/21/2020 [facility] (Interface) [phone] White Blood Count 8.1 10 Normal 4.0-10.0 [...] 36.0-66.0 Lymph % 15.7 % Low 24.0-44.0 [place] % 8.8 % High 2.0-8.0 Eos % 5.8 % High 0.0-3.0 Baso % 0.5 % Normal 0.0-1.0 Immature Granulocyte % 0.4 % Normal 0-3.0 Nucleated Red Blood Cell % 0.0 % Normal 0-0 Neutrophils # 5.6 10 Normal 1.5-8.5 Lymph # 1.3 10 Low 1.5-5.0 [place] # 0.7 10 Normal 0.0-0.8 Eos # 0.5 10 Normal 0.0-0.5 Baso # 0.0 10 Normal 0.0-0.2 Laboratory test finding 07/21/2020 [facility] (Interface) [phone] Erythrocyte Sedimentation Rate 56 mm/hr High 0 [...] HCT IS 5% LESS SOURCE FOR DATA: [employer] 1800 OPERATION MANUAL( AUTOMATED BLOOD COUNTS AND [...] Little GFR Left ESRD GFR <15 on RECYCLE DRIVER 10 Y/N query for Sepsis Lactate Rule: Y Procedures Date Code Description Status 01/01/2021 84042 Office/Outpatient Established Mo d MDM 30-39 Min Completed 09/24/2020 54107 Office/Outpatient Established Mo d MDM 30-39 Min Completed 07/15/2020 96438 Office/Outpatient Established w [facility] 20-29 Min Completed Medical Devices Description No Information Available Encounters Type Date Location Provider Dx Diagnosis Office Visit 01/01/2021 1:15p [place] [facility] Mario Gayle, FAAFP E78.5 Hyperlipidemia, unspecified J44.9 Chronic obstructive pulmonar y disease, unspecified N18.4 Chronic kidney disease, stag e 4 (severe) F41.1 Generalized anxiety disorder I48.0 Paroxysmal atrial fibrillati on I50.9 Heart failure, unspecified E03.9 Hypothyroidism, unspecified Office Visit 09/24/2020 9:40a [place] [facility] Marco Antonio Gayle, FAAFP E78.5 Hyperlipidemia, unspecified J44.9 Chronic obstructive pulmonar y disease, unspecified N18.4 Chronic kidney disease, stag e 4 (severe) I50.1 Left ventricular failure, un specified I48.0 Paroxysmal atrial fibrillati on F41.1 Generalized anxiety disorder Office Visit 07/15/2020 3:00p [place] [facility] Marco Mendoza M. D. B35.6 Tinea [...] E03.9 Hypothyroidism, unspecified Diallo Cifuentes D.O., FAAFP 09/24/2020 E78.5 Hyperlipidemia, unspecified Mario PazO., FAAFP 09/24/2020 J44.9 Chronic obstructive pulmonary di sease, unspecified Gurjit Cifuentes D.O., [facility] 09/24/2020 N18.4 Chronic kidney disease, stage 4 (severe) Gurjit Cifuentes D.O., FAAFP 09/24/2020 I50.1 Left ventricular failure, unspec ified Gurjit Cifuentes D.O., [facility] 09/24/2020 I48.0 Paroxysmal atrial fibrillation K concepción Cifuentes D.O., [facility] 09/24/2020 F41.1 Generalized anxiety disorder Joel Cifuentes D.O., [facility] 07/15/2020 B35.6 Marco Matos M.D. Plan of Treatment Future Appointment(s):* 04/16/2021 8:30 am - Gurjit Cifuentes D.O., [facility] at [facility] Functional Status Description No Information Available Mental Status Description No Information Available Referrals Description No Information Available
--- OUTSIDE RECORDS SUMMARY | 2021-01-24 16:43 | CCD | Continuity of Care Document ---
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 Smoking Status Reviewed: 10/28/20 Patient is a former smoker Hx : 1.5-2 ppd x 20 years. Allergies, Adverse Reactions, Alerts Active Allergies Criticality Reaction | Severity Comments Date Penicillin Unable to assess criticality Urticaria 08/09/2012 Medications Active Medications SIG Qnty Indications Ordering Provide r Date Symbicort 160-4.5mcg/Act Aerosol 2 puff twice a day 10.200gm Sergio Barrientos MD 03/18/2020 Torsemide 20mg Tablets 01/06 by mouth in the morning 60tabs Joanna Dow M.D. 09/2019 Vitamin B12 500mcg Tablets one tablet po daily. 90tabs Joanna Dow M.D. 01/[address] one tablet by mouth daily. 90tabs E83.42 Joanna Dow M.D. 07/2018 Tamsulosin HCL 0.4mg Capsules Take One Capsule By Mouth Daily AT Night Time 30caps N40.1 Kasia Dow M.D. 01/09/2019 Carvedilol 3.125mg Tablets 1 po twice a day Unknown Allopurinol 300mg Tablets 1 p o qd Unknown Lipitor 10mg Tablets 1 po qd Unknown Iron 325(65Fe) mg Tablets 1 by mouth once a day Unknown Aspirin [address] 1 by mouth every day Unknown Levothyroxine Sodium 25mcg Tablets 1 by mouth every day Unknown Eliquis 2.5mg Tablets one tablet by mouth twice a day. Unknown Proair HFA 108(90Base) mcg/Act Aer osol one puff every 6 hours as needed dyspnea Unknown Spiriva Respimat 2.5mcg/Act Aeroso l 2 puffs every day Unknown Medications Administered in Office Medication SIG Qnty Indications Ordering Provider Date Covid-19 vaccine, Unspecified Inj ection Unknown 04/21/2020 Covid-19 vaccine, Unspecified Inj ection Unknown 03/23/2020 Immunizations CPT Code Status Date Vaccine Lot # [id number] Given 01/16/2013 Influenza Vaccine 3 Years Of Age Or Older (Flulaval) [id number] Given 11/10/2011 Influenza Vaccine 3 Years Of Age Or Older (Flulaval) [id number] Given 08/09/2006 Pneumococcal PPSV23 Vital Signs Date Vital Result Comment 10/28/2020 10:53am BP Systolic 118 mmHg BP Diastolic 70 mmHg Heart Rate 74 /min O2 % BldC Oximetry 95 % Room Air Height 69 inches 5'9" [place] Body Weight 160 lb 04/29/2020 11:11am BP Systolic 126 mmHg BP Diastolic 76 mmHg Heart Rate 67 /min O2 % BldC Oximetry 98 % Room Air Body Temperature 97.3 F Height 69 inches 5'9" [place] Body Weight 160 lb Results Description No Information Available Procedures Date Code Description Status 05/27/2020 12314 Measure Blood Oxygen Level Eric nuous Overnight Monitor Completed Medical Devices Description No Information Available Encounters Description No Information Available Assessments Date Code Description Provider 10/28/2020 J44.9 Chronic obstructive pulmonary di sease, unspecified Sergio Barrientos MD 10/28/2020 Z87.891 Personal history of nicotine dep endence Sergio Barrietnos MD 10/28/2020 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 Functional Status Description No Information Available Mental Status Description No Information Available Referrals Description No Information Available
--- OUTSIDE RECORDS SUMMARY | 2021-01-24 16:43 | CCD | Continuity of Care Document ---
Author Author Merlin CIFUENTES D.O. Organization Unknown Address [address] [place] [address] Phone [phone] Problems Active Problems Provider Date Hyperlipidemia Onset: [...] Note: W/U NEG Raised prostate specific antigen uGrjit Cifuentes D.O., FAAF P Onset: 11/13/2014 Chronic [...] Qnty Indications Ordering Provide r Date Nystatin 944526Ydcy/GM Cream apply three times a day as [...] mouth every day 90tabs Gurjit Cifuentes D.O., [facility] 06/2018 Onetouch Ultra Blue Strips Use Twice [...] 2 puffs bid. 30.6gm Gurjit Cifuentes D.O., [facility] Moderna Covid-19 Vaccine 100mcg/0.5ML Suspension pt recieved both Unknown Torsemide 10mg Tablets 3 by mouth every day (30 mg total) from hospital d/c 01/16/20 270tabs Gurjit Cifuentes D.O., [facility] Vitamin B12 500mcg Tablets 1 by mouth [...] twice a day 180tabs [facility] D.O., [facility] History Medications Nystatin Powder apply three times a day as needed rash to scrotum 3units Marco Mendoza M.D . 07/15/2020 - 07/17/2020 Medications Administered in Office Medication SIG Qnty Indications Ordering Provider Date Injection (SC)/(Im) Injection Gurjit Cifuentes D.O., [facility] 12/28/2012 Injection (SC)/(Im) Injection Gurjit Cifuentes D.O., [facility] 09/18/2012 Immunizations CPT Code Status Date Vaccine Lot # [id number] Given 01/01/2021 Influenza Virus Vaccine, Quadrivalent, Slit Virus, Im Use 3Y & Up [id number] 39234 Given 11/08/2019 Influenza Virus Vaccine, Quadrivalent, Slit Virus, Im Use 3Y & Up [id number] 61282 Given 11/27/2018 Influenza Virus Vaccine, Quadrivalent, Slit Virus, Im Use 3Y & Up [id number] 79414 Given 11/23/2017 Influenza Virus Vaccine, Quadrivalent, Slit Virus, Im Use 3Y & Up [id number] 54660 Given 11/17/2016 Influenza Virus Vaccine, Quadrivalent, Slit Virus, Im Use 3Y & Up [id number] 33011 Given 11/18/2015 Influenza Vaccin e (Fluzone) 3Yrs Of Age Or Older Medicare Plans [id number] 38855 Given 11/13/2014 Influenza Vaccin e (Fluzone) 3Yrs Of Age Or Older Medicare Plans [id number] 77780 Given 01/30/2014 Influenza Vaccin e (Fluzone) 3Yrs Of Age Or Older Medicare Plans [id number] 30572 Given 01/22/2013 Pneumococcal Immunization [id number] 81490 Given 12/28/2012 Influenza Vaccin e (Fluzone) 3Yrs Of Age Or Older Medicare Plans 01953 Given 12/28/2012 Influenza Virus Vac. Split Virus Individuals 3 Years And Above [id number] 66207 Given 01/05/2012 Influenza Vaccin e (Fluzone) 3Yrs Of Age Or Older Medicare Plans 50168 Given 01/05/2012 Influenza Virus Vac. Split Virus Individuals 3 Years And Above [id number] 51024 Given 11/23/2010 Influenza Vaccin e (Fluzone) 3Yrs Of Age Or Older Medicare Plans 49887 Given 11/23/2010 Influenza Virus Vac. Split Virus Individuals 3 Years And Above [id number] 06782 Given 01/23/2010 Influenza Virus Vac. Split Virus Individuals 3 Years And Above [id number] 16938 Given 12/03/2008 Influenza Virus Vac. Split Virus Individuals 3 Years And Above [id number] 82165 Given 02/05/2008 Influenza Virus Vac. Split Virus Individuals 3 Years And Above [id number] 67555 Given 01/25/2007 Influenza Virus Vac. Split Virus Individuals 3 Years And Above [id number] 22281 Given 01/29/2005 Influenza Virus Vac. Split Virus Individuals 3 Years And Above 57672 Given 01/17/2002 Pneumococcal Immunization 05667 Given 01/17/2002 Influenza Virus Vac. Split Virus Individuals 3 Years And Above Vital Signs Date Vital Result Comment 01/01/2021 1:19pm BP Systolic 122 mmHg BP Diastolic 60 mmHg Body Temperature 97.3 F Heart Rate 64 /min Respiratory Rate 18 /min Height 70 inches 5'10" Weight 183.00 lb [place] Body Weight 166 lb BMI (Body Mass Index) 26.3 kg/m2 O2 % BldC Oximetry 100 % 09/24/2020 9:55am BP Systolic 112 mmHg BP Diastolic 66 mmHg Body Temperature 97.5 F Heart Rate 90 /min Respiratory Rate 18 /min Height 70 inches 5'10" Weight 191.00 lb [place] Body Weight 166 lb BMI (Body Mass Index) 27.4 kg/m2 O2 % BldC Oximetry 99 % Results Test Acquired Date Facility Test Result H/L Range Note Microalb/Creat Ratio 09/24/2020 [facility] Alb 150 mg/L Creatinine, Urine 50 mg/dL 10 - 300 A/C Ratio >300 mg/g High % Abnormal Laboratory test finding 09/24/2020 [place] [address] [phone] Pro-BNP 4171 pg/mL High 0 - 450 Laboratory test finding 09/24/2020 [facility] T4, Free 1.66 ng/dL High 0.75 - 1.54 TSH 2.284 ulU/mL 0.60 - 4.8 CBC 09/24/2020 [facility] WBC 7.6 10E3/uL 4.1 - 10.9 1 RBC 3.85 10E6/uL Low 4.20 - 6.30 [...] MPV 8.6 fL Low 9.0 - 13.0 CMP 09/24/2020 [facility] Glu 113 mg/dL High [...] Gap 18 mmol/L eGFR 22 # Calc 2 eGFR Non-Afr. Irish 19 # Calc 3 Lipid Panel 09/24/2020 [facility] Chol 124 mg/dL 0 - 200 Trig 118 mg/dL 35 - 200 HDL 36 mg/dL 35 - 55 LDL_C 64 Calc Low 75 - 129 Cho/HDL Ratio 3.5 CALC Laboratory test finding 09/24/2020 [facility] CK 50 U/L 39 - 308 U/A DIP 09/24/2020 [facility] Color yellow QUAL [...] 0 - 5 Casts rare hyaline QUAL Culture Wound And Gram Stain 07/21/2020 [facility]rit[facility]ores (Interface) [phone] Gram Stain (SEE NOTE) Normal 4 Wound Culture FULL REPORT IN L <SEE NOTE> Normal 5 Laboratory test finding 07/21/2020 [facility] (Interface) [phone] Blood Culture No growth after <SEE NOTE> 6 Basic Metabolic Profile 07/21/2020 [facility] (Interface) [phone] Glucose, Fasting 137 mg/dL High 70-100 Blood Urea Nitrogen 41 mg/dL High 7-18 Creatinine For GFR 2.44 mg/dL High 0.70-1.30 Glomerular Filtration Rate 27.1 Low >35 7 Sodium Level 142 mEq/L Normal 136-145 Potassium Serum 4.0 mEq/L Normal 3.5-5.1 Chloride Level 108 mEq/L High 98-107 Carbon Dioxide Level 29 mEq/L Normal 21-32 Anion Gap 5 mEq/L Low 8-16 Calcium Level 9.2 mg/dL Normal 8.8-10.2 Laboratory test finding 07/21/2020 [facility] (Interface) [phone] C Reactive Protein Quantitativ 3.67 mg/dL High 0 .00-0.30 Lactic Acid Sepsis Protocol 1.4 mmol/L Normal 0.4-2.0 8 CBC With Differential 07/21/2020 [facility] [phone] White Blood Count 8.1 10 Normal 4.0-10.0 [...] 36.0-66.0 Lymph % 15.7 % Low 24.0-44.0 [place] % 8.8 % High 2.0-8.0 Eos % 5.8 % High 0.0-3.0 Baso % 0.5 % Normal 0.0-1.0 Immature Granulocyte % 0.4 % Normal 0-3.0 Nucleated Red Blood Cell % 0.0 % Normal 0-0 Neutrophils # 5.6 10 Normal 1.5-8.5 Lymph # 1.3 10 Low 1.5-5.0 [place] # 0.7 10 Normal 0.0-0.8 Eos # 0.5 10 Normal 0.0-0.5 Baso # 0.0 10 Normal 0.0-0.2 Laboratory test finding 07/21/2020 [facility] ([facility]) [phone] Erythrocyte Sedimentation Rate 56 mm/hr High 0 [...] HCT IS 5% LESS SOURCE FOR DATA: [employer] DYN 1800 OPERATION MANUAL( AUTOMATED BLOOD COUNTS AND [...] YEARS EXCLUSIVE. 2 CKD-EPI 3 CKD-EPI 4 MANY WBCS MODERATE GRAM POSITIVE COCCI IN PAIRS AND CLUSTERS 5 FULL REPORT IN LAB NOTES (eC W and [facility]). ORGANISM 1: KLEBSIELLA OXYTOCA ESBL QUANTITY OF [...] Carbapenems, Amoxicillin/Clavulanate & Ampicillin/Sulbactam per C[facility]I standards. 6 No growth after 72 hours . A ll specimens observed for 5 days. Results final at that time. No growth after 48 hours . All specimens observed for 5 days. Results final at that time. No growth after 24 hours . All specimens observed for 5 days. Results final at that time. NO GROWTH AFTER 5 DAYS 7 Units are mL/min/1.73 m2 Chronic Kidney Disease Staging per NKF: Stage I & II GFR >=60 Normal to Mildly Decreased Stage III GFR 30-59 Moderately Decreased Stage IV GFR 15-29 Severely Decreased Stage V GFR <15 Very Little GFR Left ESRD GFR <15 on TRACK LAYING SUPERVISOR 8 Y/N query for Sepsis Lactate Rule: Y Procedures Date Code Description Status 01/01/2021 15643 Office/Outpatient Established Mo d MDM 30-39 Min Completed 09/24/2020 84106 Office/Outpatient Established Mo d MDM 30-39 Min Completed 07/15/2020 86284 Office/Outpatient Established Lo w MDM 20-29 Min Completed Medical Devices Description No Information Available Encounters Type Date Location Provider Dx Diagnosis Office Visit 01/01/2021 1:15p [place] [facility] Mario Gayle, FAAFP E78.5 Hyperlipidemia, unspecified J44.9 Chronic obstructive pulmonar y disease, unspecified N18.4 Chronic kidney disease, stag e 4 (severe) F41.1 Generalized anxiety disorder I48.0 Paroxysmal atrial fibrillati on I50.9 Heart failure, unspecified E03.9 Hypothyroidism, unspecified Office Visit 09/24/2020 9:40a [place] [facility] Marco Antonio Gayle, FAAFP E78.5 Hyperlipidemia, unspecified J44.9 Chronic obstructive pulmonar y disease, unspecified N18.4 Chronic kidney disease, stag e 4 (severe) I50.1 Left ventricular failure, un specified I48.0 Paroxysmal atrial fibrillati on F41.1 Generalized anxiety disorder Office Visit 07/15/2020 3:00p [place] [facility] Marco Mendoza M. D. B35.6 Mark ayala Assessments Date Code Description Provider 01/01/2021 E78.5 Hyperlipidemia, unspecified Leigh Paz.O., FAAFP 01/01/2021 J44.9 Chronic obstructive pulmonary di sease, unspecified Leigh Gayle.O., FAAFP 01/01/2021 N18.4 Chronic kidney disease, stage 4 (severe) Gurjit Cifuentes D.O., FAAFP 01/01/2021 F41.1 Generalized anxiety disorder Leigh Solano.O., FAAFP 01/01/2021 I48.0 Paroxysmal atrial fibrillation K concepción Cifuentes D.O., FAAFP 01/01/2021 I50.9 Heart failure, unspecified Bc Cifuentes D.O., FAAFP 01/01/2021 E03.9 Hypothyroidism, unspecified Diallo Cifuentes D.O., FAAFP 09/24/2020 E78.5 Hyperlipidemia, unspecified Diallo Cifuentes D.O., FAAFP 09/24/2020 J44.9 Chronic obstructive pulmonary di sease, unspecified Gurjit Cifuentes D.O., FAAFP 09/24/2020 N18.4 Chronic kidney disease, stage 4 (severe) Leigh Gayle.O., FAAFP 09/24/2020 I50.1 Left ventricular failure, unspec ified Leigh Gayle.O., FAAFP 09/24/2020 I48.0 Paroxysmal atrial fibrillation K Leigh Falk.O., FAAFP 09/24/2020 F41.1 Generalized anxiety disorder Mario SolanoOKedar, FAAFP 07/15/2020 B35.6 Marco Matos M.D. Plan of Treatment No Information Available Functional Status Description No Information Available Mental Status Description No Information Available Referrals Description No Information Available
--- OUTSIDE RECORDS SUMMARY | 2021-01-24 16:43 | CCD | Continuity of Care Document ---
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 Of Age Or Older (Flulaval) [address] Given 08/09/2006 Pneumococcal PPSV23 Vital Signs Date Vital Result Comment 10/28/2020 10:53am BP Systolic 118 mmHg BP Diastolic 70 mmHg Heart Rate 74 /min O2 % BldC Oximetry 95 % Room Air Height 69 inches 5'9" [place] Body Weight 160 lb 04/29/2020 11:11am BP Systolic 126 mmHg BP Diastolic 76 mmHg Heart Rate 67 /min O2 % BldC Oximetry 98 % Room Air Body Temperature 97.3 F Height 69 inches 5'9" Gates Body Weight 160 lb Results Description No Information Available Procedures Date Code Description Status 10/28/2020 28397 Office/Outpatient Established Mo d MDM 30-39 Min Completed 05/27/2020 08987 Measure Blood Oxygen Level Eric nuous Overnight Monitor Completed Medical Devices Description No Information Available Encounters Type Date Location Provider Dx Diagnosis Office Visit 10/28/2020 11:00a Scient[facility] Pulmonary/Thoracic Lawrenc maxi Barrientos MD J44.9 Chronic obstructive pulmonary disease, u nspecified Z87.891 Personal history of nicotine dependence 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 Assessments Date Code Description Provider 10/28/2020 J44.9 Chronic obstructive pulmonary di sease, unspecified Sergio Barrientos MD 10/28/2020 Z87.891 Personal history of nicotine dep endence Sergio Barrientos MD 10/28/2020 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 No changes were made. He was applauded for his compliance. He is up to date on his medications. I believe it is, certainly, acceptable for him to add an expectorant. I have asked him to be more liberal with his rescue inhaler, especially, before he even gets out of bed in the middle of the night.~ If he is doing well, I will see him in a minimum of 6 months with spirometry, oximetry and flow volume loop. Immunizations managed through primary. We await his return. * Follow up:* Follow up in six months with spirometry, oximetry and flow volume loop. Functional Status Description No Information Available Mental Status Description No Information Available Referrals Description No Information Available
--- OUTSIDE RECORDS SUMMARY | 2021-01-24 16:44 | CCD ---
Author Author [facility] Organization [facility] Address Unknown Phone Unavailable Care Team Providers Care Prepress Technician Name Role Phone Pritesh Acuna Sabrina PA Unavailable Unavailable BarracloughPritesh Sabrina PA Unavailable Unavailable BarracloughPritesh Sabrina PA Unavailable Unavailable BarracloughPritesh Sabrina PA Unavailable Unavailable Barraclough M Sabrina PA Unavailable Unavailable BarracloughPritesh Sabrina PA Unavailable Unavailable BarracloughPritesh Sabrina PA Unavailable Unavailable Fish, J Gurjit Unavailable Unavailable Fish, J Gurjit Unavailable Unavailable Fish, J Gurjit Unavailable Unavailable Fish, J Gurjit Unavailable Unavailable Fish, J Gurjit Unavailable Unavailable Fish, J Gurjit Unavailable Unavailable Fish, J Gurjit Unavailable Unavailable Fish, J Gurjit Unavailable Unavailable Fish, J Gurjit Unavailable Unavailable Fish, J Gurjit Unavailable Unavailable Fish, J Gurjit Unavailable Unavailable Fish, J Gurjit Unavailable Unavailable Fish, J Gurjit Unavailable Unavailable Fish, J Gurjit Unavailable Unavailable Fish, J Gurjit Unavailable Unavailable Fish, J Gurjit Unavailable Unavailable Fish, J Gurjit Unavailable Unavailable Fish, J Gurjit Unavailable Unavailable Fish, J Gurjit Unavailable Unavailable Fish, J Gurjit Unavailable Unavailable Fish, J Gurjit Unavailable Unavailable Fish, J Gurjit Unavailable Unavailable Fish, J Gurjit Unavailable Unavailable Fish, J Gurjit Unavailable Unavailable Fish, J Gurjit Unavailable Unavailable Fish, J Gurjit Unavailable Unavailable Fish, J Gurjit Unavailable Unavailable Fish, J Gurjit Unavailable Unavailable Fish, J Gurjit Unavailable Unavailable Fish, J Gurjit Unavailable Unavailable Fish, J Gurjit Unavailable Unavailable Fish, J Gurjit Unavailable Unavailable Fish, J Gurjit Unavailable Unavailable Fish, J Gurjit Unavailable Unavailable Fish, J Gurjit Unavailable Unavailable Fish, J Gurjit Unavailable Unavailable Fish, J Gurjit Unavailable Unavailable Fish, J Gurjit Unavailable Unavailable Fish, J Gurjit Unavailable Unavailable Fish, J Gurjit Unavailable Unavailable Fish, J Gurjit Unavailable Unavailable Fish, J Gurjit Unavailable Unavailable Fish, J Gurjit Unavailable Unavailable Fish, J Gurjit Unavailable Unavailable Fish, J Gurjit Unavailable Unavailable Fish, J Gurjit Unavailable Unavailable Fish, J Gurjit Unavailable Unavailable Fish, J Gurjit Unavailable Unavailable Fish, J Gurjit Unavailable Unavailable Fish, J Gurjit Unavailable Unavailable Fish, J Gurjit Unavailable Unavailable Fish, J Gurjit Unavailable Unavailable Fish, J Gurjit Unavailable Unavailable Fish, J Gurjit Unavailable Unavailable Fish, J Gurjit Unavailable Unavailable Fish, J Gurjit Unavailable Unavailable Fish, J Gurjit Unavailable Unavailable Fish, J Gurjit Unavailable Unavailable Fish, J Gurjit Unavailable Unavailable Fish, J Gurjit Unavailable Unavailable Fish, J Gurjit Unavailable Unavailable Fish, J Gurjit Unavailable Unavailable Fish, J Gurjit Unavailable Unavailable Fish, J Gurjit Unavailable Unavailable Fish, J Gurjit Unavailable Unavailable Fish, J Gurjit Unavailable Unavailable Fish, J Gurjit Unavailable Unavailable Fish, J Gurjit Unavailable Unavailable Fish, J Gurjit Unavailable Unavailable Fish, J Gurjit Unavailable Unavailable Fish, J Gurjit Unavailable Unavailable Fish, J Gurjit Unavailable Unavailable Fish, J Gurjit Unavailable Unavailable Fish, J Gurjit Unavailable Unavailable Fish, J Gurjit Unavailable Unavailable Fish, J Gurjit Unavailable Unavailable Fish, J Gurjit Unavailable Unavailable Fish, J Gurjit Unavailable Unavailable Fish, J Gurjit Unavailable Unavailable Fish, J Gurjit Unavailable Unavailable Fish, J Gurjit Unavailable Unavailable Fish, J Gurjit Unavailable Unavailable Fish, J Gurjit Unavailable Unavailable Fish, J Gurjit Unavailable Unavailable Fish, J Gurjit Unavailable Unavailable Ortega ALFARO MD Unavailable Unavailable Ortega ALFARO MD Unavailable Unavailable Ortega ALFARO MD Unavailable Unavailable Ortega ALFARO MD Unavailable Unavailable Ortega ALFARO MD Unavailable Unavailable Ortega ALFARO MD Unavailable Unavailable Ortega ALFARO MD Unavailable Unavailable Ortega ALFARO MD Unavailable Unavailable Ortega ALFARO MD Unavailable Unavailable Ortega ALFARO MD Unavailable Unavailable Ortega ALFARO MD Unavailable Unavailable Ortega ALFARO MD Unavailable Unavailable Ortega ALFARO MD Unavailable Unavailable Ortega ALFARO MD Unavailable Unavailable Ortega ALFARO MD Unavailable Unavailable Ortega ALFARO MD Unavailable Unavailable Ortega ALFARO MD Unavailable Unavailable Ortega ALFARO MD Unavailable Unavailable Ortega ALFARO MD Unavailable Unavailable Ortega ALFARO MD Unavailable Unavailable Ortega ALFARO MD Unavailable Unavailable Ortega ALFARO MD Unavailable Unavailable Ortega ALFARO MD Unavailable Unavailable Ortega ALFARO MD Unavailable Unavailable Ortega ALFARO MD Unavailable Unavailable Ortega ALFARO MD Unavailable Unavailable Ortega ALFARO MD Unavailable Unavailable Ortega ALFARO MD Unavailable Unavailable Ortega ALFARO MD Unavailable Unavailable Ortega ALFARO MD Unavailable Unavailable Ortega ALFARO MD Unavailable Unavailable Ortega ALFARO MD Unavailable Unavailable Ortega ALFARO MD Unavailable Unavailable Ortega ALFARO MD Unavailable Unavailable Ortega ALFARO MD Unavailable Unavailable Ortega ALFARO MD Unavailable Unavailable Ortega ALFARO MD Unavailable Unavailable Ortega ALFARO MD Unavailable Unavailable Ortega ALFARO MD Unavailable Unavailable Ortega ALFARO MD Unavailable Unavailable Ortega ALFARO MD Unavailable Unavailable Ortega ALFARO MD Unavailable Unavailable Ortega ALFARO MD Unavailable Unavailable Ortega ALFARO MD Unavailable Unavailable Ortega ALFARO MD Unavailable Unavailable Ortega ALFARO MD Unavailable Unavailable Ortega ALFARO MD Unavailable Unavailable Ortega ALFARO MD Unavailable Unavailable Ortega ALFARO MD Unavailable Unavailable Ortega ALFARO MD Unavailable Unavailable Ortega ALFARO MD Unavailable Unavailable Ortega ALFARO MD Unavailable Unavailable Ortega ALFARO MD Unavailable Unavailable Ortega ALFARO MD Unavailable Unavailable Ortega ALFARO MD Unavailable Unavailable Ortega ALFARO MD Unavailable Unavailable Ortega ALFARO MD Unavailable Unavailable Ortega ALFARO MD Unavailable Unavailable Ortega ALFARO MD Unavailable Unavailable Ortega ALFARO MD Unavailable Unavailable Ortega ALFARO MD Unavailable Unavailable Ortega ALFARO MD Unavailable Unavailable Ortega ALFARO MD Unavailable Unavailable Ortega ALFARO MD Unavailable Unavailable Ortega ALFARO MD Unavailable Unavailable Ortega ALFARO MD Unavailable Unavailable Ortega ALFARO MD Unavailable Unavailable Ortega ALFARO MD Unavailable Unavailable Ortega ALFARO MD Unavailable Unavailable ANGELINA, H PIYUSH SAUMEL Unavailable Unavailable ANGELINA, H PIYUSH SAMUEL Unavailable Unavailable ANGELINA, H PIYUSH SAMUEL Unavailable Unavailable ANGELINA, H PIYUSH SAMUEL Unavailable Unavailable ANGELINA, H PIYUSH SAMUEL Unavailable Unavailable ANGELINA, H PIYUSH SAMUEL Unavailable Unavailable ANGELINA, H PIYUSH SAMUEL Unavailable Unavailable ANGELINA, H PIYUSH MD Unavailable Unavailable ANGELINA, H PIYUSH MD Unavailable Unavailable Fish, J Gurjit Unavailable Unavailable Fish, J Gurjit Unavailable Unavailable Fish, J Gurjit Unavailable Unavailable Fish, J Gurjit Unavailable Unavailable Fish, J Gurjit Unavailable Unavailable Fish, J Gurjit Unavailable Unavailable Fish, J Gurjit Unavailable Unavailable Fish, J Gurjit Unavailable Unavailable Fish, J Gurjit Unavailable Unavailable Fish, J Gurjit Unavailable Unavailable Fish, J Gurjit Unavailable Unavailable Fish, J Gurjit Unavailable Unavailable Fish, J Gurjit Unavailable Unavailable Fish, J Gurjit Unavailable Unavailable Fish, J Gurjit Unavailable Unavailable Fish, J Gurjit Unavailable Unavailable Fish, J Gurjit Unavailable Unavailable Fish, J Gurjit Unavailable Unavailable Fish, J Gurjit Unavailable Unavailable Fish, J Gurjit Unavailable Unavailable Fish, J Gurjit Unavailable Unavailable Fish, J Gurjit Unavailable Unavailable Fish, J Gurjit Unavailable Unavailable Fish, J Gurjit Unavailable Unavailable Fish, J Gurjit Unavailable Unavailable Fish, J Gurjit Unavailable Unavailable Fish, J Gurjit Unavailable Unavailable Fish, J Gurjit Unavailable Unavailable Fish, J Gurjit Unavailable Unavailable Fish, J Gurjit Unavailable Unavailable Fish, J Gurjit Unavailable Unavailable Fish, J Gurjit Unavailable Unavailable Fish, J Gurjit Unavailable Unavailable Fish, J Gurjit Unavailable Unavailable Fish, J Gurjit Unavailable Unavailable Fish, J Gurjit Unavailable Unavailable Fish, J Gurjit Unavailable Unavailable Fish, J Gurjit Unavailable Unavailable Fish, J Gurjit Unavailable Unavailable Fish, J Gurjit Unavailable Unavailable Fish, J Gurjit Unavailable Unavailable Fish, J Gurjit Unavailable Unavailable Fish, J Gurjit Unavailable Unavailable Fish, J Gurjit Unavailable Unavailable Fish, J Gurjit Unavailable Unavailable Fish, J Gurjit Unavailable Unavailable Fish, J Gurjit Unavailable Unavailable Fish, J Gurjit Unavailable Unavailable Fish, J Gurjit Unavailable Unavailable Fish, J Gurjit Unavailable Unavailable Fish, J Gurjit Unavailable Unavailable Fish, J Gurjit Unavailable Unavailable Fish, J Gurjit Unavailable Unavailable Fish, J Gurjit Unavailable Unavailable Fish, J Gurjit Unavailable Unavailable Fish, J Gurjit Unavailable Unavailable Fish, J Gurjit Unavailable Unavailable Fish, J Gurjit Unavailable Unavailable Fish, J Gurjit Unavailable Unavailable Fish, J Gurjit Unavailable Unavailable Fish, J Gurjit Unavailable Unavailable Fish, J Gurjit Unavailable Unavailable Fish, J Gurjit Unavailable Unavailable Fish, J Gurjit Unavailable Unavailable Fish, J Gurjit Unavailable Unavailable Fish, J Gurjit Unavailable Unavailable Fish, J Gurjit Unavailable Unavailable Fish, J Gurjit Unavailable Unavailable Fish, J Gurjit Unavailable Unavailable Fish, J Gujrit Unavailable Unavailable Fish, J Gurjit Unavailable Unavailable Fish, J Gurjit Unavailable Unavailable Fish, J Gurjit Unavailable Unavailable Fish, J Gurjit Unavailable Unavailable Fish, J Gurjit Unavailable Unavailable Fish, J Gurjit Unavailable Unavailable Fish, J Gurjit Unavailable Unavailable Fish, J Gurjit Unavailable Unavailable Fish, J Gurjit Unavailable Unavailable Fish, J Gurjit Unavailable Unavailable Fish, J Gurjit Unavailable Unavailable Fish, J Gurjit Unavailable Unavailable Fish, J Gurjit Unavailable Unavailable Fish, J Gurjit Unavailable Unavailable Fish, J Gurjit Unavailable Unavailable Javier Barrientos MD Unavailable Unavailable Javier Barrientos MD Unavailable Unavailable Javier Barrientos MD Unavailable Unavailable Javier Barrientos MD Unavailable Unavailable Javier Barrientos MD Unavailable Unavailable Javier Barrientos MD Unavailable Unavailable Javier Barrientos MD Unavailable Unavailable Javier Barrientos MD Unavailable Unavailable Javier Barrientos MD Unavailable Unavailable Javier Barrientos MD Unavailable Unavailable Javier Barrientos MD Unavailable Unavailable Javier Barrientos MD Unavailable Unavailable Javier Barrientos MD Unavailable Unavailable Javier Barrientos MD Unavailable Unavailable Javier Barrientos MD Unavailable Unavailable Javier Barrientos MD Unavailable Unavailable Javier Barrientos MD Unavailable Unavailable Javier Barrientos MD Unavailable Unavailable Javier Barrientos MD Unavailable Unavailable Javier Barrientos MD Unavailable Unavailable Javier Barrientos MD Unavailable Unavailable Javier Barrientos MD Unavailable Unavailable Javier Barrientos MD Unavailable Unavailable Javier Barrientos MD Unavailable Unavailable Javier Barrientos MD Unavailable Unavailable Javier Barrientos MD Unavailable Unavailable Javier Barrientos MD Unavailable Unavailable Javier Barrientos MD Unavailable Unavailable Javier Barrientos MD Unavailable Unavailable Javier Barrientos MD Unavailable Unavailable Javier Barrientos MD Unavailable Unavailable Javier Barrientos MD Unavailable Unavailable Javier Barrientos MD Unavailable Unavailable Javier Barrientos MD Unavailable Unavailable Javier Barrientos MD Unavailable Unavailable Barrientos, Javier Sergio MD Unavailable Unavailable Barrientos, Javier Hill MD Unavailable Unavailable Barrientos, Javier Hill MD Unavailable Unavailable Barrientos, Javier Hill MD Unavailable Unavailable Barrientos, Javier Hill MD Unavailable Unavailable Barrientos, Javier Hill MD Unavailable Unavailable Barrientos, Javier Sergio MD Unavailable Unavailable Barrientos, Javier Sergio MD Unavailable Unavailable Barrientos, Javier Sergio MD Unavailable Unavailable Barrientos, Javier Sergio MD Unavailable Unavailable Barrientos, Javier Sergio MD Unavailable Unavailable Barrientos, Javier Sergio MD Unavailable Unavailable Barrientos, Javier Sergio MD Unavailable Unavailable Barrientos, Javier Sergio MD Unavailable Unavailable Barrientos, Javier Hill MD Unavailable Unavailable Barrientos, Javier Hill MD Unavailable Unavailable Barrientos, Javier Sergio MD Unavailable Unavailable Barrientos, Javier Hill MD Unavailable Unavailable Barrientos, Javier Hill MD Unavailable Unavailable Re-disclosure Warning The records that you are about to access may contain information from federally-assisted alcohol or drug abuse programs. If such information is present, then the following federally mandated warning applies: This information has been disclosed to you from records protected by federal confidentiality rules (42 CFR part 2). The federal rules prohibit you from making any further disclosure of this information unless further disclosure is expressly permitted by the written consent of the person to whom it pertains or as otherwise permitted by 42 CFR part 2. A general authorization for the release of medical or other information is NOT sufficient for this purpose. The Federal rules restrict any use of the information to criminally investigate or prosecute any alcohol or drug abuse patient.The records that you are about to access may contain highly sensitive health information, the redisclosure of which is protected by Article 27-F of the [facility] [facility] [place] Public Health law. If you continue you may have access to information: Regarding HIV / AIDS; Provided by facilities licensed or operated by the [facility] Office of Mental Health; or Provided by the [facility] Office for People With Developmental Disabilities. If such information is present, then the following [facility] mandated warning applies: This information has been disclosed to you from confidential records which are protected by state law. State law prohibits you from making any further disclosure of this information without the specific written consent of the person to whom it pertains, or as otherwise permitted by law. Any unauthorized further disclosure in violation of state law may result in a fine or usp sentence or both. A general authorization for the release of medical or other information is NOT sufficient authorization for further disc losure. Family History Family Member Name Family Member Gender Family Member Status Date o f Status Description Data Source(s) Unknown Unknown Problem [facility] ([facility]) Unknown Unknown Problem [facility] ([facility] brother, age 66 Unknown Male Problem [facility] ([facility]) Unknown Male Problem [facility] ([facility]) Encounters Encounter Providers Location Date Indications Data Source(s ) Outpatient Attender: Gurjit Fish [place] 01/01/2021 01:15:0 0 PM EDT [facility] ([facility] Outpatient Attender: Sergio Stringer/Coby/Herman/R eibruna 10/28/2020 11:00:00 AM EDT MED[facility] ([facility] Outpatient Attender: Gurjit FishReferrer: Gurjit FishConsultant: Gurjit Fish 09/24/2020 05:54:00 PM EDT - 09/24/2020 06:04:00 PM EDT [facility] Outpatient Attender: Gurjit Fish [place] [facility] 09/24/2020 09:40:0 0 AM EDT MED[facility] ([facility] (WND SOWMYA) Stretcher Required Patients [address] [place] [address] 07/31/2020 12:00:00 AM EDT eCW1 ([facility]) Outpatient [address] [facility] [id number] 07/24/2020 12:00:00 AM EDT eCW1 ([facility]) Outpatient Attender: PIYUSH ALFARO MD [place] [facility] 01/2021 03:00:00 PM EDT [facility] ([facility] Outpatient Attender: Gurjit Ruiz [place] 06/24/2020 11:00:0 0 AM EDT [facility] ([facility] Outpatient Attender: Sergio Stringer/Coby/Herman/R david 04/29/2020 10:00:00 AM EST MED[facility] ([facility]) Outpatient Attender: Sergio Stringer/Coby/Herman/R deanandben 03/18/2020 09:00:00 AM EST MED[facility] ([facility] Outpatient Attender: [facility] 03/13/2020 08:00:0 0 AM EST [facility] ([facility] 01:00:0 0 PM EST [facility] ([facility] Outpatient Attender: [facility] 12/20/2019 11:30:0 0 AM EDT MED[facility] ([facility] Outpatient Attender: Sabrina FARIAS [place] [facility] 2019 01:30:00 PM EDT [facility] ([facility] Immunizations Vaccine Date Status Description Data Source(s) COVID-19 VACCINE Moderna 01/04/2021 12:00:00 AM EDT completed [facility] Vaccine Series Complete: YESThis Data wa s Submitted to [facility] Via [employer]. New in 2012. IIV4 01/01/2021 01:18:00 PM EDT completed [facility] ([facility] COVID-19 VACCINE Moderna 04/21/2020 12:00:00 AM EST completed [facility] Vaccine Series Complete: YESThis Data wa s Submitted to [facility] Via [employer]. COVID-19 VACCINE, MRNA-1273, LNP-S (MODERNA)/PF 04/21/2020 1 2:00:00 AM EST completed [facility] COVID-19 VACCINE, MRNA-[id number], LNP-S (MODERNA)/PF 03/23/2020 1 2:00:00 AM EST completed [facility] COVID-19 VACCINE Moderna 03/23/2020 12:00:00 AM EST completed [facility] Vaccine Series Complete: NOThis Data was Submitted to [facility] Via [employer]. Medications Medication Brand Name Start Date Product Form Dose Route Admi nistrative Instructions Pharmacy Instructions Status Indications Reaction Description Data Source(s) Betamethasone 0.5 MG/ML / Clotrimazole 10 MG/ML Topica l Cream 1-0.05 % CLOTRIMAZOLE/BETAMETHASONE DIP 07/24/2020 12:00:00 AM EDT cream 45 APPLY 1 APPLICATION TO AFFECTED AREA(S) TWICE A DAY APPLY 1 APPLICATION TO AFFECTED AREA(S) TWICE A DAY SOLD: 08/01/2020 [facility] Betamethasone 0.5 MG/ML / Clotrimazole 10 MG/ML Topica l Cream 1-0.05 % CLOTRIMAZOLE/BETAMETHASONE DIP 07/24/2020 12:00:00 AM EDT cream 45 APPLY 1 APPLICATION TO AFFECTED AREA(S) TWICE A DAY APPLY 1 APPLICATION TO AFFECTED AREA(S) TWICE A DAY SOLD: 07/24/2020 [facility] Betamethasone 0.5 MG/ML / Clotrimazole 1 0 MG/ML Topical Cream Clotrimazole- Betamethasone 1-0.05 % Clotrimazole-Betamethasone 1-0.05 % 07/24/2020 12:00:0 0 AM EDT 1.0 {application} active Clotri mazole-Betamethasone 1-0.05 % eCW1 ([facility]) Betamethasone 0.5 MG/ML / Clotrimazole 10 MG/ML Topica l Cream 1-0.05 % CLOTRIMAZOLE/BETAMETHASONE DIP 07/24/2020 12:00:00 AM EDT cream 45 APPLY 1 APPLICATION TO AFFECTED AREA(S) TWICE A DAY APPLY 1 APPLICATION TO AFFECTED AREA(S) TWICE A DAY SOLD: 10/06/2020 [facility] Betamethasone 0.5 MG/ML / Clotrimazole 1 0 MG/ML Topical Cream Clotrimazole- Betamethasone 1-0.05 % Clotrimazole-Betamethasone 1-0.05 % 07/24/2020 12:00:0 0 AM EDT 1.0 {application} active Clotri mazole-Betamethasone 1-0.05 % eCW1 ([facility]) Nystatin 300175 UNT/ML Topical Cream 100,000 unit/gram NYSTA TIN 07/18/2020 12:00:00 AM EDT cream 30 APPLY TO RASH ON SCROTUM THREE TIMES A DAY NEEDED APPLY TO RASH ON SCROTUM THREE TIMES A DAY NEEDED SOLD: 07/18/2020 [facility] Nystatin 910078 UNT/ML Topical Cream Nystatin 07/17/2020 12:00:00 AM EDT active [facility] ([facility] Nystatin 07/15/2020 12:00:00 AM EDT completed [facility] ([facility] carvedilol 12.5 MG Oral Tablet CARVEDILOL 05/02/2020 12:00:00 AM EST tablet 180 TAKE ONE TABLET BY MOUTH TWICE A DAY TAKE ONE TABLET BY MOUT H TWICE A DAY SOLD: 05/12/2020 [facility] 25 mcg 05/02/2020 12:00:00 AM EST tablet 90 TAKE ONE TABLET BY MOUTH EVERY DAY TAKE ONE TABLET BY MOUTH EVERY DAY SOLD: 05/12/2020 [facility] Covid-19 vaccine, Unspecified 04/21/2020 12:00:00 AM EST completed [facility] ([facility], ) Medication administered onsite Covid-19 vaccine, Unspecified 03/23/2020 12:00:00 AM EST completed [facility] ([facility], ) Medication administered onsite 10 mg 03/18/2020 12:00:00 AM EST tablet 40 TAKE 4 TABLETS BY MOUTH EVERY DAY FOR 4 DAYS , THEN 3 EVERY DAY FOR 4 DAYS, THEN 2 EVERY DAY FOR 4 DAYS, THEN TAKE 1 EVERY DAY FOR 4 DAYS AND STOP TAKE 4 TABLETS BY MOUTH EVERY DAY FOR 4 DAYS , THEN 3 EVERY DAY FOR 4 DAYS, THEN 2 EVERY DAY FOR 4 DAYS, THEN TAKE 1 EVERY DAY FOR 4 DAYS AND STOP SOLD: 03/18/2020 [facility] 60 ACTUAT Budesonide 0.16 MG/ACTUAT / fo rmoterol fumarate 0.0045 MG/ACTUAT Metered Dose Inhaler [Symbicort] Symbicort 03/18/2020 12:00:00 AM EST RESPIRATORY active MED[facility] ( [facility], ) Prednisone 10 MG Oral Tablet Prednisone 03/18/2020 12:00:00 AM EST ORAL completed [facility] ([facility], ) 1-0.05 % 03/14/2020 12:00:00 AM EST cream 45 APPLY TO AREA OF RASH ON THE LEG TWO TIMES A DAY FOR 2 WEEKS APPLY TO AREA OF RASH ON THE LEG TWO ROBER ES A DAY FOR 2 WEEKS SOLD: 03/18/2020 [facility] 1-0.05 % 02/13/2020 12:00:00 AM EST cream 45 APPLY TO AREA OF RASH ON THE LEG TWO TIMES A DAY FOR 2 WEEKS APPLY TO AREA OF RASH ON THE LEG TWO ROBER ES A DAY FOR 2 WEEKS SOLD: 02/15/2020 [facility] 1-0.05 % 02/13/2020 12:00:00 AM EST cream 45 APPLY TO AREA OF RASH ON THE LEG TWO TIMES A DAY FOR 2 WEEKS APPLY TO AREA OF RASH ON THE LEG TWO ROBER ES A DAY FOR 2 WEEKS SOLD: 03/02/2020 [facility] Docusate Sodium 100 MG Oral Tablet Docusate Sodium 01/25/2020 12:00 :00 AM EST ORAL active [facility] Spiriva Respimat Spiriva Respimat 01/24/2020 12:00:00 AM EST ORAL active [facility] ([facility] 300 mg 01/16/2020 12:00:00 AM EST capsule 6 TAKE ONE CAPSULE BY MOUTH TWICE A DAY FOR 3 DAYS TAKE ONE CAPSULE BY MOUTH TWICE A DAY FOR 3 DAYS SOLD: 01/16/2020 [facility] 90 mcg/actuation 01/16/2020 12:00:00 AM EST HFA aerosol inha ler 8 INHALE TWO PUFFS BY MOUTH EVERY 4 HOURS NEEDED FOR SHORTNESS OF BREATH AND WHEEZING INHALE TWO PUFFS BY MOUTH EVERY 4 HOURS NEEDED FOR SHORTNESS OF BREATH AND WHEEZING SOLD: 01/16/2020 [facility] 10 mg 01/16/2020 12:00:00 AM EST tablet 30 TAKE 4 TABS.BY MOUTH ONCE DAILY FOR 3 DAYS;3/DAY X 3 DAYS;2/DAY X 3 DAYS;1/DAY X 3 DAYS THEN STOP TAKE 4 TABS.BY MOUTH ONCE DAILY FOR 3 DAYS;3/DAY X 3 DAYS;2/DAY X 3 DAYS;1/DAY X 3 DAYS THEN STOP SOLD: 01/16/2020 [facility] 500 mg 01/16/2020 12:00:00 AM EST tablet 3 TAKE ONE TABLET BY MOUTH EVERY DAY FOR 3 DAYS TAKE ONE TABLET BY MOUTH EVERY DAY FOR 3 DAYS SOLD: 01/16/2020 [facility] 2.5 mcg/actuation 01/16/2020 12:00:00 AM EST mist 4 INHALE TWO PUFFS BY MOUTH EVERY DAY INHALE TWO PUFFS BY MOUTH EVERY DAY SOLD: 01/16/2020 [facility] torsemide 20 MG Oral Tablet Torsemide 12/12/2019 12:00:00 AM EDT ORAL active [facility] 500 mg 2019 12:00:00 AM EDT tablet 19 TAKE ONE TABLET BY MOUTH TWICE A DAY TAKE ONE TABLET BY MOUTH TWICE A DAY SOLD: 12/03/2019 [facility] Prednisone 10 MG Oral Tablet Prednisone 11/08/2019 12:00:00 AM EDT ORAL completed [facility] ([facility] Spironolactone 25 MG Oral Tablet Spironolactone 07/20/2019 12:00:00 A M EDT ORAL completed [facility] ([facility] Insurance Providers Payer name Policy type / Coverage type Policy ID Covered constitution party ID Covered constitution party's relationship to cruz Policy Cruz Plan Information [facility] [id number] [facility] [id number] Medicare (Part B) Medicare Primary [id number] MRN.[id number] Self [id number] Medicare Medicare Primary [id number] Self Medicare Medicare Primary [id number] 2.16.840.1.481814.3.227.99.716 .3417.0 Self [id number] Medicare (Part B) Medicare Primary [id number] 2.16.840.1.256085.3.227.99.572.7837.0 Self [id number] Medicare (Part B) Medicare Primary [id number] MRN.[id number] Self [id number] Medicare (Part B) Medicare Primary [id number] 2.16.840.1.949573.3.227.99.572.7837.0 Self [id number] Medicare (Part B) Medicare Primary [id number] 2.16.840.1.302674.3.227.99.572.7837.0 Self 13 [id number] Medicare (Part B) Medicare Primary [id number] 2.16.840.1.871247.3.227.99.572.7837.0 Self [id number] Medicare (Part B) Medicare Primary [id number] MRN.[id number] Self [id number] Medicare (Part B) Medicare Primary [id number] 2.16.840.1.371472.3.227.99.572.7837.0 Self 13 [id number] Medicare (Part B) Medicare Primary [id number] 2.16.840.1.633433.3.227.99.572.7837.0 Self 13 [id number] Medicare Medicare Primary [id number] 2.16.840.1.570967.3.227.99.716 .3417.0 Self [id number] MEDICARE [id number] SP [id number] [place] Primary 2.16840.1.409919.3.227. 99.991.36259.0 Self Medicare (Part B) Medicare Primary [id number] Self Medicare (Part B) Medicare Primary [id number] 2.16.840.1.696925.3.227.99.572.7837.0 Self [id number] MEDICARE [id number] Blanca [id number] Medicare (Part B) Medicare Primary [id number] MRN.[id number] Self [id number] [place] (pr) Medigap Part B 2.16840.1.274555.3.227.99 .991.41242.0 Family Dependent DME Jurisdiction A NHIC C [id number] SELF [id number] [place] F [id number] SELF [id number] UMR [id number] Spo [id number] [place] / UMR F [id number] SELF [id number] Medicare C [id number] SELF [id number] A Umr Commercial [id number] 01 2.16.840.1.515162.3.227.99.7 16.3417.0 Family Dependent [id number] 01 Medicare Medicare Primary [id number] 2.16.840.1.801289.3.227 .99.716.3417.0 Self [id number] r Commercial [id number] 01 2.16.840.1.260017.3.227.99.7 16.3417.0 Family Dependent [id number] 01 Medicare Medicare Primary [id number] 2.16.840.1.676692.3.227 .99.716.3417.0 Self [id number] R [facility] [id number] [facility] [id number] R PI PI MEDICARE PI PI [facility] PHCS Ppo Medigap Part B [id number] 2.16.840.1.395934.3.227.99.572.7837.0 Family Dependent [id number] [place] Medigap Part B [id number] 2.16.840.1.757421.3.227.99 .572.7837.0 Family Dependent [id number] Ghi Medigap Part B [id number] 2.16.840.1.773623.3.227.99.572.7837 .0 Self [id number] Umr Medigap Part B [id number] 2.16.840.1.573466.3.227.99 .572.7837.0 Family Dependent [id number] [facility] PHCS Ppo Medigap Part B [id number] 7f0f 2.16.840.1.567334.3.227.99.572.7837.0 Family Dependent [id number] [place] Medigap Part B [id number] 2.16.840.1.781981.3.227.99 .572.7837.0 Family Dependent [id number] Ghi Medigap Part B [id number] 2.0.1.947415.3.227.99.572.7837 .0 Self [id number] Umr Medigap Part B [id number] 2.0.1.845358.3.227.99 .572.7837.0 Family Dependent [id number] [facility] PHCS Ppo Medigap Part B [id number] 5af8 2.0.1.110378.3.227.99.572.7837.0 Family Dependent [id number] [place] Medigap Part B [id number] 2..1.499502.3.227.99 .572.7837.0 Family Dependent [id number] Ghi Medigap Part B [id number] 2..1.782775.3.227.99.572.7837 .0 Self [id number] Umr Medigap Part B [id number] 2..1.839801.3.227.99 .572.7837.0 Family Dependent [id number] UMR -O/P [id number] 01 [id number] MEDICARE -O/P [id number] 18 [id number] MEDICARE [id number] SP [id number] A [place] [id number] WI2 [id number] Umr Commercial [id number] 01 2.0.1.611700.3.227.99.7 16.3417.0 Family Dependent [id number] 01 Medicare Medicare Primary [id number] 2.0.1.717212.3.227 .99.716.3417.0 Self [id number] UMR O [id number] S [id number] MEDICARE C [id number] S [id number] A [facility] PHCS Ppo Medigap Part B [id number] 488d 2.16.840.1.254020.3.227.99.572.7837.0 Family Dependent [id number]-[id number] [place] Medigap Part B [id number] 2.16840.1.107014.3.227.99 .572.7837.0 Family Dependent [id number] [facility] [id number] WI2 [id number] r Medigap Part B [id number] 2.16840.1.185320.3.227.99 .572.7837.0 Family Dependent [id number] [facility] PHCS Ppo Medigap Part B [id number] 45a8 2.16840.1.599319.3.227.99.572.7837.0 Family Dependent [id number]-[id number] [place] Medigap Part B [id number] 2.0.1.951721.3.227.99 .572.7837.0 Family Dependent 328503584 Ghi Medigap Part B [id number] 2.0.1.744524.3.227.99.572.7837 .0 Self 641588783 Umr Medigap Part B [id number] 2.0.1.624681.3.227.99 .572.7837.0 Family Dependent [id number] [employer] PPO O [id number] C [id number] [facility]-O/P [id number] 19 [id number] MEDICARE -O/P [id number] 18 [id number] Serg/Saw Lu.Al. [place] Medigap Part B [id number] 2.16840.1.946657.3.227.99.716.3417.0 Family Dependent 89 3469996 [facility] PHCS Ppo Medigap Part B [id number] 3647 2.16840.1.181795.3.227.99.572.7837.0 Family Dependent [id number]-[id number] [place] Medigap Part B [id number] 2.16.840.1.296005.3.227.99 .572.7837.0 Family Dependent 828712513 Ghi Medigap Part B [id number] 2.16.840.1.677489.3.227.99.572.7837 .0 Self 163422966 [employer] PHCS Ppo Medigap Part B [id number] 2b58 2.16.840.1.325329.3.227.99.572.7837.0 Family Dependent [id number]-[id number] [place] Medigap Part B [id number] 2.16840.1.637990.3.227.99 .572.7837.0 Family Dependent 477800728 Ghi Medigap Part B [id number] 2.16840.1.898327.3.227.99.572.7837 .0 Self 757266854 [place] Medigap Part B 44333 Family Dependent Ghi Medigap Part B 29183 Self [place] Medigap Part B 47435 Family Dependent [employer] PPO O [id number] P [id number] [facility]-O/P [id number] 19 [id number] Ghi Medigap Part B [id number] 2.16840.1.333886.3.227.99.572.7837 .0 Self [id number] MEDICARE [id number] SP [id number] UMR -O/P [id number] 01 [id number] MEDICARE PART A -O/P [id number] 18 [id number] [facility] [id number] WI2 [id number] UMR O [id number] S [id number] MEDICARE C [id number] S [id number] V13 [facility] PHCS Ppo Medigap Part B [id number] 6673 MRN.[id number] Family Dependent [id number] [place] Medigap Part B [id number] MRN.[id number] Family Dependent 993887166 Ghi Medigap Part B [id number] MRN.[id number] Self [id number] Umr Medigap Part B [id number] MRN.[id number] Family Dependent [id number] [facility] PHCS Ppo Medigap Part B [id number] 6543 MRN.[id number] Family Dependent [id number]-[id number] [place] Medigap Part B [id number] MRN.[id number] Family Dependent 716005341 Ghi Medigap Part B [id number] MRN.[id number]- [id number] Self 150422574 r Medigap Part B [id number] MRN.[id number] Family Dependent [id number] Umr Commercial [id number] 01 2.16.840.1.241916.3.227.99.7 16.3417.0 Family Dependent [id number] 01 Medicare Medicare Primary [id number] 2.16.840.1.945657.3.227 .99.716.3417.0 Self [id number] [employer] PHCS Ppo Medigap Part B [id number] 7d28 MRN.[id number] Family Dependent [id number]-[id number] [place] Medigap Part B [id number] MRN.[id number] Family Dependent 828435218 i Medigap Part B [id number] MRN.[id number]-[id number] [id number] Self [id number] [facility] Medigap Part B [id number] MRN.[id number] Family Dependent [id number] [facility] [id number] 414f MRN.[id number] Family Dependent [id number]-[id number] [facility] Medigap Part B [id number] MRN.[id number] Family Dependent 843690414 i Medigap Part B [id number] MRN.[id number]-[id number]- sd42ttv3w74l Self [id number] [facility] Medigap Part B [id number] MRN.[id number] Family Dependent [id number] Problems, Conditions, and Diagnoses Code Display Name Description Problem Type Effective Dates Data Source(s) I501 Left ventricular failure, unspecified Le ft ventricular failure, unspecified Diagnosis 09/24/2020 05:54:00 PM EDT [facility] J449 Chronic obstructive pulmonary disease, u nspecified Chronic obstructive pulmonary disease, unspecified Diagnosis 09/24/2020 05:54:00 PM EDT [facility] R0602 Shortness of breath Shortness of breath Diagnosis 0 09/24/2020 05:54:00 PM EDT [facility] [id number] Biventricular congestive heart failure B iventricular congestive heart failure Problem 12/21/2019 12:00:00 AM EDT [facility] ([facility] Surgeries/Procedures Procedure Description Date Indications Data Source(s) OFFICE OUTPATIENT VISIT 25 MINUTES 01/01/2021 12:00:00 AM EDT [facility] ([facility] OFFICE OUTPATIENT VISIT 25 MINUTES 10/28/2020 12:00:00 AM EDT [facility] ([facility], ) OFFICE OUTPATIENT VISIT 25 MINUTES 09/24/2020 12:00:00 AM EDT [facility] ([facility] OFFICE OUTPATIENT VISIT 15 MINUTES 07/15/2020 12:00:00 AM EDT [facility] ([facility] OFFICE OUTPATIENT VISIT 25 MINUTES 06/24/2020 12:00:00 AM EDT [facility] ([facility] Measure Blood Oxygen Level Continuous Overnight Monitor 05/27/2020 12:00:00 AM EDT [facility] ([facility], ) DEMO&/EVAL OF PT UTILIZ AERSL GEN/NEB/INHLR/IPPB 04/29 12:00:00 AM EST [facility] ([facility], ) Bronchospasm Evaluation 04/18/2020 12:00:00 AM EST [facility] ([facility], ) Plethysmography Determination Lung Volumes & Per Airway Resi st 04/18/2020 12:00:00 AM EST [facility] ([facility], ) DIFFUSING CAPACITY 04/18/2020 12:00:00 AM EST [facility] ([facility], ) Results ID Date Data Source [id number] 01/01/2021 02:31:00 PM EDT [facility] ([facility] Name Value Range Interpretation Code Description Data Julianna rce(s) Supporting Document(s) Color Urine Laboratory test result M MARCO ANTONIO ([facility] Appearance of Urine Laboratory test result [facility] ([facility] PH Urine 5.5 5.0-8.0 [facility] ([facility] Specific Tracy 1.015 1.00-1.03 [facility] ([facility] Glucose Urine Laboratory test result [facility] ([facility] Ketones Laboratory test result [facility] ([facility] Bilirubin.total [Presence] in Urine by Test strip Laboratory test res ult [facility] ([facility] Urobilinogen 0.2 EU/dl 0.2-1.0 [facility] ([facility] Blood Urine Laboratory test result M EDENT ([facility] Protein Urine Laboratory test result Above high normal [facility] ([facility] Nitrite Laboratory test result [facility] ([facility] Leukocytes Laboratory test result ME DENT ([facility] ID Date Data Source [id number] 01/01/2021 02:06:00 PM EDT [facility] ([facility] Name Value Range Interpretation Code Description Data Julianna rce(s) Supporting Document(s) Thyrotropin [Units/volume] in Serum or Plasma Laboratory test result [facility] ([facility] ID Date Data Source [id number] 01/01/2021 02:06:00 PM EDT [facility] ([facility] Name Value Range Interpretation Code Description Data Julianna rce(s) Supporting Document(s) Chol 122 mg/dL 0-200 [facility] ([facility] NORMAL RANGES Age WBC RBC HGB HCT [...] HCT IS 5% LESS SOURCE FOR DATA: Ecwid 1800 OPERATION MANUAL( AUTOMATED BLOOD COUNTS AND [...] DESIRABLE: <130 MG/DL <110 MG/DL BORDERLINE-HIGH RISK: 130- 159 MG/DL 110-129 MG/DL HIGH RISK: >160 MG/DL >130 MG/DL *CHILDREN AND ADOLESCENTS REPRESENTS INDIVIDUALA AGED 2-19 YEARS EXCLUSIVE. Trig 113 mg/dL 35-200 [facility] NORMAL RANGES Age WBC RBC HGB HCT [...] HCT IS 5% LESS SOURCE FOR DATA: Ecwid 1800 OPERATION MANUAL( AUTOMATED BLOOD COUNTS AND [...] DESIRABLE: <130 MG/DL <110 MG/DL BORDERLINE-HIGH RISK: 130- 159 MG/DL 110-129 MG/DL HIGH RISK: >160 MG/DL >130 MG/DL *CHILDREN AND ADOLESCENTS REPRESENTS INDIVIDUALA AGED 2-19 YEARS EXCLUSIVE. LDL_C 63 Calc 75-129 Below low normal [facility] ( [facility] NORMAL RANGES Age WBC RBC HGB HCT [...] HCT IS 5% LESS SOURCE FOR DATA: Ecwid 1800 OPERATION MANUAL( AUTOMATED BLOOD COUNTS AND [...] DESIRABLE: <130 MG/DL <110 MG/DL BORDERLINE-HIGH RISK: 130- 159 MG/DL 110-129 MG/DL HIGH RISK: >160 MG/DL >130 MG/DL *CHILDREN AND ADOLESCENTS REPRESENTS INDIVIDUALA AGED 2-19 YEARS EXCLUSIVE. Cholesterol in HDL [Mass/volume] in Serum or Plasma 36 mg/dL 35-55 [facility] ([facility] NORMAL RANGES Age WBC RBC HGB HCT [...] HCT IS 5% LESS SOURCE FOR DATA: Ecwid 1800 OPERATION MANUAL( AUTOMATED BLOOD COUNTS AND [...] DESIRABLE: <130 MG/DL <110 MG/DL BORDERLINE-HIGH RISK: 130- 159 MG/DL 110-129 MG/DL HIGH RISK: >160 MG/DL >130 MG/DL *CHILDREN AND ADOLESCENTS REPRESENTS INDIVIDUALA AGED 2-19 YEARS EXCLUSIVE. Cho/HDL Ratio 3.4 CALC [facility] ([facility] NORMAL RANGES Age WBC RBC HGB HCT [...] HCT IS 5% LESS SOURCE FOR DATA: Ecwid 1800 OPERATION MANUAL( AUTOMATED BLOOD COUNTS AND [...] DESIRABLE: <130 MG/DL <110 MG/DL BORDERLINE-HIGH RISK: 130- 159 MG/DL 110-129 MG/DL HIGH RISK: >160 MG/DL >130 MG/DL *CHILDREN AND ADOLESCENTS REPRESENTS INDIVIDUALA AGED 2-19 YEARS EXCLUSIVE. ID Date Data Source [id number] 01/01/2021 02:06:00 PM EDT [facility] ([facility] Name Value Range Interpretation Code Description Data Julianna rce(s) Supporting Document(s) Glu 108 mg/dL 70-110 [facility] ([facility] NORMAL RANGES Age WBC RBC HGB HCT [...] HCT IS 5% LESS SOURCE FOR DATA: Ecwid 1800 OPERATION MANUAL( AUTOMATED BLOOD COUNTS AND [...] DESIRABLE: <130 MG/DL <110 MG/DL BORDERLINE-HIGH RISK: 130- 159 MG/DL 110-129 MG/DL HIGH RISK: >160 MG/DL >130 MG/DL *CHILDREN AND ADOLESCENTS REPRESENTS INDIVIDUALA AGED 2-19 YEARS EXCLUSIVE. BUN 35 mg/dL 8-23 Above high normal [facility] ([facility] NORMAL RANGES Age WBC RBC HGB HCT [...] HCT IS 5% LESS SOURCE FOR DATA: Ecwid 1800 OPERATION MANUAL( AUTOMATED BLOOD COUNTS AND [...] DESIRABLE: <130 MG/DL <110 MG/DL BORDERLINE-HIGH RISK: 130- 159 MG/DL 110-129 MG/DL HIGH RISK: >160 MG/DL >130 MG/DL *CHILDREN AND ADOLESCENTS REPRESENTS INDIVIDUALA AGED 2-19 YEARS EXCLUSIVE. Creat 2.4 mg/dL 0.7-1.2 Above high normal [facility] ([facility] NORMAL RANGES Age WBC RBC HGB HCT [...] HCT IS 5% LESS SOURCE FOR DATA: Ecwid 1800 OPERATION MANUAL( AUTOMATED BLOOD COUNTS AND [...] DESIRABLE: <130 MG/DL <110 MG/DL BORDERLINE-HIGH RISK: 130- 159 MG/DL 110-129 MG/DL HIGH RISK: >160 MG/DL >130 MG/DL *CHILDREN AND ADOLESCENTS REPRESENTS INDIVIDUALA AGED 2-19 YEARS EXCLUSIVE. Na 139 mmol/L 136-145 [facility] NORMAL RANGES Age WBC RBC HGB HCT [...] HCT IS 5% LESS SOURCE FOR DATA: Ecwid 1800 OPERATION MANUAL( AUTOMATED BLOOD COUNTS AND [...] DESIRABLE: <130 MG/DL <110 MG/DL BORDERLINE-HIGH RISK: 130- 159 MG/DL 110-129 MG/DL HIGH RISK: >160 MG/DL >130 MG/DL *CHILDREN AND ADOLESCENTS REPRESENTS INDIVIDUALA AGED 2-19 YEARS EXCLUSIVE. BUN/Creatinine Ratio 14.7 CALC [facility] ([facility] NORMAL RANGES Age WBC RBC HGB HCT [...] HCT IS 5% LESS SOURCE FOR DATA: Ecwid 1800 OPERATION MANUAL( AUTOMATED BLOOD COUNTS AND [...] DESIRABLE: <130 MG/DL <110 MG/DL BORDERLINE-HIGH RISK: 130- 159 MG/DL 110-129 MG/DL HIGH RISK: >160 MG/DL >130 MG/DL *CHILDREN AND ADOLESCENTS REPRESENTS INDIVIDUALA AGED 2-19 YEARS EXCLUSIVE. K 4.9 mmol/L 3.5-5.1 [facility] NORMAL RANGES Age WBC RBC HGB HCT [...] HCT IS 5% LESS SOURCE FOR DATA: Ecwid 1800 OPERATION MANUAL( AUTOMATED BLOOD COUNTS AND [...] DESIRABLE: <130 MG/DL <110 MG/DL BORDERLINE-HIGH RISK: 130- 159 MG/DL 110-129 MG/DL HIGH RISK: >160 MG/DL >130 MG/DL *CHILDREN AND ADOLESCENTS REPRESENTS INDIVIDUALA AGED 2-19 YEARS EXCLUSIVE. CL 100.9 mmol/L 98.0-107.0 [facility] ([facility] NORMAL RANGES Age WBC RBC HGB HCT [...] HCT IS 5% LESS SOURCE FOR DATA: Ecwid 1800 OPERATION MANUAL( AUTOMATED BLOOD COUNTS AND [...] DESIRABLE: <130 MG/DL <110 MG/DL BORDERLINE-HIGH RISK: 130- 159 MG/DL 110-129 MG/DL HIGH RISK: >160 MG/DL >130 MG/DL *CHILDREN AND ADOLESCENTS REPRESENTS INDIVIDUALA AGED 2-19 YEARS EXCLUSIVE. Co2 27.2 mmol/L 22.0-29.0 [facility] ([facility] NORMAL RANGES Age WBC RBC HGB HCT [...] HCT IS 5% LESS SOURCE FOR DATA: Ecwid 1800 OPERATION MANUAL( AUTOMATED BLOOD COUNTS AND [...] DESIRABLE: <130 MG/DL <110 MG/DL BORDERLINE-HIGH RISK: 130- 159 MG/DL 110-129 MG/DL HIGH RISK: >160 MG/DL >130 MG/DL *CHILDREN AND ADOLESCENTS REPRESENTS INDIVIDUALA AGED 2-19 YEARS EXCLUSIVE. TP 6.1 g/dL 6.6-8.7 Below low normal [facility] ( [facility] NORMAL RANGES Age WBC RBC HGB HCT [...] HCT IS 5% LESS SOURCE FOR DATA: [employer] DYN 1800 OPERATION MANUAL( AUTOMATED BLOOD COUNTS [...] DESIRABLE: <130 MG/DL <110 MG/DL BORDERLINE-HIGH RISK: 130- 159 MG/DL 110-129 MG/DL HIGH RISK: >160 MG/DL >130 MG/DL *CHILDREN AND ADOLESCENTS REPRESENTS INDIVIDUALA AGED 2-19 YEARS EXCLUSIVE. CA 9.9 mg/dL 8.6-10.2 [facility] NORMAL RANGES Age WBC RBC HGB HCT [...] HCT IS 5% LESS SOURCE FOR DATA: Ecwid 1800 OPERATION MANUAL( AUTOMATED BLOOD COUNTS AND [...] DESIRABLE: <130 MG/DL <110 MG/DL BORDERLINE-HIGH RISK: 130- 159 MG/DL 110-129 MG/DL HIGH RISK: >160 MG/DL >130 MG/DL *CHILDREN AND ADOLESCENTS REPRESENTS INDIVIDUALA AGED 2-19 YEARS EXCLUSIVE. Alb 4.0 g/dL 3.5-5.2 RG ([facility] NORMAL RANGES Age WBC RBC HGB HCT [...] HCT IS 5% LESS SOURCE FOR DATA: Ecwid 1800 OPERATION MANUAL( AUTOMATED BLOOD COUNTS AND [...] DESIRABLE: <130 MG/DL <110 MG/DL BORDERLINE-HIGH RISK: 130- 159 MG/DL 110-129 MG/DL HIGH RISK: >160 MG/DL >130 MG/DL *CHILDREN AND ADOLESCENTS REPRESENTS INDIVIDUALA AGED 2-19 YEARS EXCLUSIVE. Globulin 2.1 CALC [facility] ([facility] NORMAL RANGES Age WBC RBC HGB HCT [...] HCT IS 5% LESS SOURCE FOR DATA: Ecwid 1800 OPERATION MANUAL( AUTOMATED BLOOD COUNTS AND [...] DESIRABLE: <130 MG/DL <110 MG/DL BORDERLINE-HIGH RISK: 130- 159 MG/DL 110-129 MG/DL HIGH RISK: >160 MG/DL >130 MG/DL *CHILDREN AND ADOLESCENTS REPRESENTS INDIVIDUALA AGED 2-19 YEARS EXCLUSIVE. A/G Ratio 1.9 CALC [facility] ([facility] NORMAL RANGES Age WBC RBC HGB HCT [...] HCT IS 5% LESS SOURCE FOR DATA: Ecwid 1800 OPERATION MANUAL( AUTOMATED BLOOD COUNTS AND [...] DESIRABLE: <130 MG/DL <110 MG/DL BORDERLINE-HIGH RISK: 130- 159 MG/DL 110-129 MG/DL HIGH RISK: >160 MG/DL >130 MG/DL *CHILDREN AND ADOLESCENTS REPRESENTS INDIVIDUALA AGED 2-19 YEARS EXCLUSIVE. Alp 128.6 U/L 40-129 [facility] NORMAL RANGES Age WBC RBC HGB HCT [...] HCT IS 5% LESS SOURCE FOR DATA: Ecwid 1800 OPERATION MANUAL( AUTOMATED BLOOD COUNTS AND [...] DESIRABLE: <130 MG/DL <110 MG/DL BORDERLINE-HIGH RISK: 130- 159 MG/DL 110-129 MG/DL HIGH RISK: >160 MG/DL >130 MG/DL *CHILDREN AND ADOLESCENTS REPRESENTS INDIVIDUALA AGED 2-19 YEARS EXCLUSIVE. Alt (SGPT) 19 U/L 0-41 [facility] NORMAL RANGES Age WBC RBC HGB HCT [...] HCT IS 5% LESS SOURCE FOR DATA: Ecwid 1800 OPERATION MANUAL( AUTOMATED BLOOD COUNTS AND [...] DESIRABLE: <130 MG/DL <110 MG/DL BORDERLINE-HIGH RISK: 130- 159 MG/DL 110-129 MG/DL HIGH RISK: >160 MG/DL >130 MG/DL *CHILDREN AND ADOLESCENTS REPRESENTS INDIVIDUALA AGED 2-19 YEARS EXCLUSIVE. Ast (Sgot) 24 U/L 0-40 [facility] ([facility] NORMAL RANGES Age WBC RBC HGB HCT [...] HCT IS 5% LESS SOURCE FOR DATA: Ecwid 1800 OPERATION MANUAL( AUTOMATED BLOOD COUNTS AND [...] DESIRABLE: <130 MG/DL <110 MG/DL BORDERLINE-HIGH RISK: 130- 159 MG/DL 110-129 MG/DL HIGH RISK: >160 MG/DL >130 MG/DL *CHILDREN AND ADOLESCENTS REPRESENTS INDIVIDUALA AGED 2-19 YEARS EXCLUSIVE. Osmolality-Calculated 286.0 [facility] ([facility] NORMAL RANGES Age WBC RBC HGB HCT [...] HCT IS 5% LESS SOURCE FOR DATA: IOANA Navut 1800 OPERATION MANUAL( AUTOMATED BLOOD COUNTS AND [...] DESIRABLE: <130 MG/DL <110 MG/DL BORDERLINE-HIGH RISK: 130- 159 MG/DL 110-129 MG/DL HIGH RISK: >160 MG/DL >130 MG/DL *CHILDREN AND ADOLESCENTS REPRESENTS INDIVIDUALA AGED 2-19 YEARS EXCLUSIVE. Tbili 0.42 mg/dL 0.0-1.2 [facility] NORMAL RANGES Age WBC RBC HGB HCT [...] HCT IS 5% LESS SOURCE FOR DATA: Ecwid 1800 OPERATION MANUAL( AUTOMATED BLOOD COUNTS AND [...] DESIRABLE: <130 MG/DL <110 MG/DL BORDERLINE-HIGH RISK: 130- 159 MG/DL 110-129 MG/DL HIGH RISK: >160 MG/DL >130 MG/DL *CHILDREN AND ADOLESCENTS REPRESENTS INDIVIDUALA AGED 2-19 YEARS EXCLUSIVE. eGFR 27 # [facility] ( [facility] NORMAL RANGES Age WBC RBC HGB HCT [...] HCT IS 5% LESS SOURCE FOR DATA: Ecwid 1800 OPERATION MANUAL( AUTOMATED BLOOD COUNTS AND [...] DESIRABLE: <130 MG/DL <110 MG/DL BORDERLINE-HIGH RISK: 130- 159 MG/DL 110-129 MG/DL HIGH RISK: >160 MG/DL >130 MG/DL *CHILDREN AND ADOLESCENTS REPRESENTS INDIVIDUALA AGED 2-19 YEARS EXCLUSIVE. eGFR Non-Afr. Fijian 24 # [facility] ([facility] NORMAL RANGES Age WBC RBC HGB HCT [...] HCT IS 5% LESS SOURCE FOR DATA: Ecwid 1800 OPERATION MANUAL( AUTOMATED BLOOD COUNTS AND [...] DESIRABLE: <130 MG/DL <110 MG/DL BORDERLINE-HIGH RISK: 130- 159 MG/DL 110-129 MG/DL HIGH RISK: >160 MG/DL >130 MG/DL *CHILDREN AND ADOLESCENTS REPRESENTS INDIVIDUALA AGED 2-19 YEARS EXCLUSIVE. Anion Gap 16 mmol/L [facility] ([facility] NORMAL RANGES Age WBC RBC HGB HCT [...] HCT IS 5% LESS SOURCE FOR DATA: Ecwid 1800 OPERATION MANUAL( AUTOMATED BLOOD COUNTS AND [...] DESIRABLE: <130 MG/DL <110 MG/DL BORDERLINE-HIGH RISK: 130- 159 MG/DL 110-129 MG/DL HIGH RISK: >160 MG/DL >130 MG/DL *CHILDREN AND ADOLESCENTS REPRESENTS INDIVIDUALA AGED 2-19 YEARS EXCLUSIVE. ID Date Data Source [id number] 01/01/2021 02:06:00 PM EDT [facility] ([facility] Name Value Range Interpretation Code Description Data Julianna rce(s) Supporting Document(s) Creatine kinase [Enzymatic activity/volume] in Serum or Plasma 3 6 U/L 39-308 Below low normal [facility] ([facility] ) NORMAL RANGES Age WBC RBC HGB HCT [...] HCT IS 5% LESS SOURCE FOR DATA: Ecwid 1800 OPERATION MANUAL( AUTOMATED BLOOD COUNTS AND [...] ADOLESCENTS REPRESENTS INDIVIDUALA AGED 2-19 YEARS EXCLUSIVE. ID Date Data Source [id number] 01/01/2021 02:06:00 PM EDT [facility] ([facility] Name Value Range Interpretation Code Description Data Julianna rce(s) Supporting Document(s) WBC 5.9 10E3/uL 4.1-10.9 [facility] ([facility] NORMAL RANGES Age WBC RBC HGB HCT [...] HCT IS 5% LESS SOURCE FOR DATA: Ecwid 1800 OPERATION MANUAL( AUTOMATED BLOOD COUNTS AND [...] ADOLESCENTS REPRESENTS INDIVIDUALA AGED 2-19 YEARS EXCLUSIVE. RBC 3.92 10E6/uL 4.20-6.30 Below low normal [facility] ([facility] NORMAL RANGES Age WBC RBC HGB HCT [...] HCT IS 5% LESS SOURCE FOR DATA: Ecwid 1800 OPERATION MANUAL( AUTOMATED BLOOD COUNTS AND [...] ADOLESCENTS REPRESENTS INDIVIDUALA AGED 2-19 YEARS EXCLUSIVE. HGB 13.3 g/dL 12.0-18.0 [facility] ([facility] NORMAL RANGES Age WBC RBC HGB HCT [...] HCT IS 5% LESS SOURCE FOR DATA: Ecwid 1800 OPERATION MANUAL( AUTOMATED BLOOD COUNTS AND [...] ADOLESCENTS REPRESENTS INDIVIDUALA AGED 2-19 YEARS EXCLUSIVE. HCT 40.0 % 37.0-51.0 [facility] NORMAL RANGES Age WBC RBC HGB HCT [...] HCT IS 5% LESS SOURCE FOR DATA: Ecwid 1800 OPERATION MANUAL( AUTOMATED BLOOD COUNTS AND [...] ADOLESCENTS REPRESENTS INDIVIDUALA AGED 2-19 YEARS EXCLUSIVE. MCV 102.0 fL 80.0-97.0 Above high normal [facility] ([facility] NORMAL RANGES Age WBC RBC HGB HCT [...] HCT IS 5% LESS SOURCE FOR DATA: Ecwid 1800 OPERATION MANUAL( AUTOMATED BLOOD COUNTS AND [...] ADOLESCENTS REPRESENTS INDIVIDUALA AGED 2-19 YEARS EXCLUSIVE. MCH 33.9 pg 26.0-32.0 Above high normal [facility] ([facility] NORMAL RANGES Age WBC RBC HGB HCT [...] HCT IS 5% LESS SOURCE FOR DATA: IOANA DYN 1800 OPERATION MANUAL( AUTOMATED BLOOD COUNTS [...] ADOLESCENTS REPRESENTS INDIVIDUALA AGED 2-19 YEARS EXCLUSIVE. MCHC 33.3 g/dL 31.0-36.0 [facility] ([facility] NORMAL RANGES Age WBC RBC HGB HCT [...] HCT IS 5% LESS SOURCE FOR DATA: Ecwid 1800 OPERATION MANUAL( AUTOMATED BLOOD COUNTS AND [...] ADOLESCENTS REPRESENTS INDIVIDUALA AGED 2-19 YEARS EXCLUSIVE. PLT 141 10E3/uL 140-440 [facility] ([facility] NORMAL RANGES Age WBC RBC HGB HCT [...] HCT IS 5% LESS SOURCE FOR DATA: Ecwid 1800 OPERATION MANUAL( AUTOMATED BLOOD COUNTS AND [...] ADOLESCENTS REPRESENTS INDIVIDUALA AGED 2-19 YEARS EXCLUSIVE. Neut% 67.0 % 37.0-92.0 [facility] ([facility] NORMAL RANGES Age WBC RBC HGB HCT [...] HCT IS 5% LESS SOURCE FOR DATA: Ecwid 1800 OPERATION MANUAL( AUTOMATED BLOOD COUNTS AND [...] ADOLESCENTS REPRESENTS INDIVIDUALA AGED 2-19 YEARS EXCLUSIVE. RDW-CV 17.6 % 11.5-14.5 Above high normal [facility] ([facility] NORMAL RANGES Age WBC RBC HGB HCT [...] HCT IS 5% LESS SOURCE FOR DATA: Ecwid 1800 OPERATION MANUAL( AUTOMATED BLOOD COUNTS AND [...] ADOLESCENTS REPRESENTS INDIVIDUALA AGED 2-19 YEARS EXCLUSIVE. Lym% 15.4 % 10.0-58.5 [facility] ([facility] NORMAL RANGES Age WBC RBC HGB HCT [...] HCT IS 5% LESS SOURCE FOR DATA: Ecwid 1800 OPERATION MANUAL( AUTOMATED BLOOD COUNTS AND [...] ADOLESCENTS REPRESENTS INDIVIDUALA AGED 2-19 YEARS EXCLUSIVE. Lym# 0.9 10E3/uL 0.6-4.1 [employer] ([facility] [email or web address] NORMAL RANGES Age WBC RBC HGB HCT [...] HCT IS 5% LESS SOURCE FOR DATA: [email or web address] DYN 1800 OPERATION MANUAL( AUTOMATED BLOOD COUNTS [...] ADOLESCENTS REPRESENTS INDIVIDUALA AGED 2-19 YEARS EXCLUSIVE. MXD% 17.6 % 0.1-24.0 [facility] ([facility] NORMAL RANGES Age WBC RBC HGB HCT [...] HCT IS 5% LESS SOURCE FOR DATA: Ecwid 1800 OPERATION MANUAL( AUTOMATED BLOOD COUNTS AND [...] ADOLESCENTS REPRESENTS INDIVIDUALA AGED 2-19 YEARS EXCLUSIVE. Neut# 4.0 % 2.0-7.8 RG ([facility] NORMAL RANGES Age WBC RBC HGB HCT [...] HCT IS 5% LESS SOURCE FOR DATA: Ecwid 1800 OPERATION MANUAL( AUTOMATED BLOOD COUNTS AND [...] ADOLESCENTS REPRESENTS INDIVIDUALA AGED 2-19 YEARS EXCLUSIVE. MXD# 1.0 10E3/uL 0.0-1.8 [facility] ([facility] NORMAL RANGES Age WBC RBC HGB HCT [...] HCT IS 5% LESS SOURCE FOR DATA: [email or web address] DYN 1800 OPERATION MANUAL( AUTOMATED BLOOD COUNTS [...] ADOLESCENTS REPRESENTS INDIVIDUALA AGED 2-19 YEARS EXCLUSIVE. MPV 10.0 fL 9.0-13.0 [facility] ([facility] NORMAL RANGES Age WBC RBC HGB HCT [...] HCT IS 5% LESS SOURCE FOR DATA: Ecwid 1800 OPERATION MANUAL( AUTOMATED BLOOD COUNTS AND [...] ADOLESCENTS REPRESENTS INDIVIDUALA AGED 2-19 YEARS EXCLUSIVE. ID Date Data Source [id number] 09/24/2020 10:23:00 AM EDT [facility] ([facility] Name Value Range Interpretation Code Description Data Julianna rce(s) Supporting Document(s) Alb 150 mg/L [facility] ([facility] Creatinine, Urine 50 mg/dL 10-300 [facility] A/C Ratio Laboratory test result Abnormal (applies to non -numeric results) [facility] ([facility] ID Date Data Source [id number] 09/24/2020 10:23:00 AM EDT [facility] ([facility] Name Value Range Interpretation Code Description Data Julianna rce(s) Supporting Document(s) Natriuretic peptide.B prohormone N-Terminal [Mass/volu me] in Serum or Plasma 4171 pg/mL 0-450 Above high normal [facility] ([facility] ID Date Data Source [id number] 09/24/2020 10:23:00 AM EDT [facility] ([facility]) Name Value Range Interpretation Code Description Data Julianna rce(s) Supporting Document(s) Natriuretic peptide.B prohormone N-Terminal [Mass/volu me] in Serum or Plasma 4171 [facility] ([employer] [facility]) ID Date Data Source [id number] 09/24/2020 10:23:00 AM EDT [facility] ([facility]) Name Value Range Interpretation Code Description Data Julianna rce(s) Supporting Document(s) Triglycerides 118 [facility] ([facility]) Cholesterol 124 [facility] ([facility]) Chol/HDL Ratio 3.5 [facility] ([facility]) HDL 36 [facility] ([facility]) Cholesterol in LDL [Mass/volume] in Serum or Plasma by calculation 64 [facility] ([facility]) ID Date Data Source [id number] 09/24/2020 10:23:00 AM EDT [facility] ([facility]) Name Value Range Interpretation Code Description Data Julianna rce(s) Supporting Document(s) Albumin [Mass/volume] in Serum or Plasma 4.0 [facility] ([facility]) Alanine aminotransferase [Enzymatic activity/volume] in Serum or Pl asma 21 [facility] ([facility]) Calcium [Mass/volume] in Serum or Plasma 9.1 [facility] ([facility]) Carbon dioxide, total [Moles/volume] in Serum or Plasma 23.0 [facility] ([facility]) Alkaline phosphatase [Enzymatic activity/volume] in Serum or Plasma 120.8 [facility] ([facility]) Chloride [Moles/volume] in Serum or Plasma 102.8 [facility] ([facility]) Potassium [Moles/volume] in Serum or Plasma 4.1 [facility] ([facility]) Sodium 139 [facility] ([facility]) Protein [Mass/volume] in Serum or Plasma 6.1 [facility] ([facility]) Aspartate aminotransferase [Enzymatic activity/volume] in Serum or Plasma 15 [facility] ([facility]) Urea nitrogen [Mass/volume] in Serum or Plasma 37 [facility] ([facility]) Glucose 113 83-110 [facility] ([facility]) Creatinine For GFR 2.9 [facility] (Car [facility]oly [facility]) ID Date Data Source [id number] 09/24/2020 10:23:00 AM EDT [facility] ([facility]) Name Value Range Interpretation Code Description Data Julianna rce(s) Supporting Document(s) White Blood Count 7.6 5.0-10.0 [facility] ([facility]) Platelets 163 172-450 [facility] ([facility]) Hemoglobin 13.0 [facility] ([facility]) Red Blood Count 3.85 4.00-5.40 [facility] ([facility]io [facility]y [facility]) Hematocrit 38.7 [facility] ([facility]) ID Date Data Source [id number] 09/24/2020 08:11:00 PM EDT [facility] Name Value Range Interpretation Code Description Data Julianna rce(s) Supporting Document(s) BNP 4171 PG/ML 0 - 450 [facility] ID Date Data Source [id number] 09/24/2020 10:22:00 AM EDT [facility] ([facility] Name Value Range Interpretation Code Description Data Julianna rce(s) Supporting Document(s) Thyroxine (T4) free [Mass/volume] in Serum or Plasma 1.66 ng/dL 0.75-1.54 Above high normal [facility] ([facility] ) Thyrotropin [Units/volume] in Serum or Plasma 2.284 ulU/mL 0.60-4.8 [facility] ([facility] ID Date Data Source [id number] 09/24/2020 10:21:00 AM EDT [facility] ([facility] Name Value Range Interpretation Code Description Data Julianna rce(s) Supporting Document(s) WBC 7.6 10E3/uL 4.1-10.9 [facility] ([facility] NORMAL RANGES Age WBC RBC HGB HCT [...] HCT IS 5% LESS SOURCE FOR DATA: Ecwid 1800 OPERATION MANUAL( AUTOMATED BLOOD COUNTS AND [...] DESIRABLE: <130 MG/DL <110 MG/DL BORDERLINE-HIGH RISK: 130- 159 MG/DL 110-129 MG/DL HIGH RISK: >160 MG/DL >130 MG/DL *CHILDREN AND ADOLESCENTS REPRESENTS INDIVIDUALA AGED 2-19 YEARS EXCLUSIVE. RBC 3.85 10E6/uL 4.20-6.30 Below low normal [facility] ([facility] NORMAL RANGES Age WBC RBC HGB HCT [...] HCT IS 5% LESS SOURCE FOR DATA: Ecwid 1800 OPERATION MANUAL( AUTOMATED BLOOD COUNTS AND [...] DESIRABLE: <130 MG/DL <110 MG/DL BORDERLINE-HIGH RISK: 130- 159 MG/DL 110-129 MG/DL HIGH RISK: >160 MG/DL >130 MG/DL *CHILDREN AND ADOLESCENTS REPRESENTS INDIVIDUALA AGED 2-19 YEARS EXCLUSIVE. HGB 13.0 g/dL 12.0-18.0 [facility] ([facility] NORMAL RANGES Age WBC RBC HGB HCT [...] HCT IS 5% LESS SOURCE FOR DATA: Ecwid 1800 OPERATION MANUAL( AUTOMATED BLOOD COUNTS AND [...] DESIRABLE: <130 MG/DL <110 MG/DL BORDERLINE-HIGH RISK: 130- 159 MG/DL 110-129 MG/DL HIGH RISK: >160 MG/DL >130 MG/DL *CHILDREN AND ADOLESCENTS REPRESENTS INDIVIDUALA AGED 2-19 YEARS EXCLUSIVE. MCV 100.5 fL 80.0-97.0 Above high normal [facility] ([facility] NORMAL RANGES Age WBC RBC HGB HCT [...] HCT IS 5% LESS SOURCE FOR DATA: Ecwid 1800 OPERATION MANUAL( AUTOMATED BLOOD COUNTS AND [...] DESIRABLE: <130 MG/DL <110 MG/DL BORDERLINE-HIGH RISK: 130- 159 MG/DL 110-129 MG/DL HIGH RISK: >160 MG/DL >130 MG/DL *CHILDREN AND ADOLESCENTS REPRESENTS INDIVIDUALA AGED 2-19 YEARS EXCLUSIVE. HCT 38.7 % 37.0-51.0 [facility] ([facility] NORMAL RANGES Age WBC RBC HGB HCT [...] HCT IS 5% LESS SOURCE FOR DATA: Ecwid 1800 OPERATION MANUAL( AUTOMATED BLOOD COUNTS AND [...] DESIRABLE: <130 MG/DL <110 MG/DL BORDERLINE-HIGH RISK: 130- 159 MG/DL 110-129 MG/DL HIGH RISK: >160 MG/DL >130 MG/DL *CHILDREN AND ADOLESCENTS REPRESENTS INDIVIDUALA AGED 2-19 YEARS EXCLUSIVE. MCH 33.8 pg 26.0-32.0 Above high normal [facility] ([facility] NORMAL RANGES Age WBC RBC HGB HCT [...] HCT IS 5% LESS SOURCE FOR DATA: [email or web address] DYN 1800 OPERATION MANUAL( AUTOMATED BLOOD COUNTS [...] DESIRABLE: <130 MG/DL <110 MG/DL BORDERLINE-HIGH RISK: 130- 159 MG/DL 110-129 MG/DL HIGH RISK: >160 MG/DL >130 MG/DL *CHILDREN AND ADOLESCENTS REPRESENTS INDIVIDUALA AGED 2-19 YEARS EXCLUSIVE. PLT 163 10E3/uL 140-440 [facility] NORMAL RANGES Age WBC RBC HGB HCT [...] HCT IS 5% LESS SOURCE FOR DATA: Ecwid 1800 OPERATION MANUAL( AUTOMATED BLOOD COUNTS AND [...] DESIRABLE: <130 MG/DL <110 MG/DL BORDERLINE-HIGH RISK: 130- 159 MG/DL 110-129 MG/DL HIGH RISK: >160 MG/DL >130 MG/DL *CHILDREN AND ADOLESCENTS REPRESENTS INDIVIDUALA AGED 2-19 YEARS EXCLUSIVE. MCHC 33.6 g/dL 31.0-36.0 [facility] ([facility] NORMAL RANGES Age WBC RBC HGB HCT [...] HCT IS 5% LESS SOURCE FOR DATA: Ecwid 1800 OPERATION MANUAL( AUTOMATED BLOOD COUNTS AND [...] DESIRABLE: <130 MG/DL <110 MG/DL BORDERLINE-HIGH RISK: 130- 159 MG/DL 110-129 MG/DL HIGH RISK: >160 MG/DL >130 MG/DL *CHILDREN AND ADOLESCENTS REPRESENTS INDIVIDUALA AGED 2-19 YEARS EXCLUSIVE. Lym% 17.2 % 10.0-58.5 [facility] ([facility] NORMAL RANGES Age WBC RBC HGB HCT [...] HCT IS 5% LESS SOURCE FOR DATA: Ecwid 1800 OPERATION MANUAL( AUTOMATED BLOOD COUNTS AND [...] DESIRABLE: <130 MG/DL <110 MG/DL BORDERLINE-HIGH RISK: 130- 159 MG/DL 110-129 MG/DL HIGH RISK: >160 MG/DL >130 MG/DL *CHILDREN AND ADOLESCENTS REPRESENTS INDIVIDUALA AGED 2-19 YEARS EXCLUSIVE. RDW-CV 17.5 % 11.5-14.5 Above high normal [facility] ([facility] NORMAL RANGES Age WBC RBC HGB HCT [...] HCT IS 5% LESS SOURCE FOR DATA: Ecwid 1800 OPERATION MANUAL( AUTOMATED BLOOD COUNTS AND [...] DESIRABLE: <130 MG/DL <110 MG/DL BORDERLINE-HIGH RISK: 130- 159 MG/DL 110-129 MG/DL HIGH RISK: >160 MG/DL >130 MG/DL *CHILDREN AND ADOLESCENTS REPRESENTS INDIVIDUALA AGED 2-19 YEARS EXCLUSIVE. Neut% 71.1 % 37.0-92.0 [facility] ([facility] NORMAL RANGES Age WBC RBC HGB HCT [...] HCT IS 5% LESS SOURCE FOR DATA: Ecwid 1800 OPERATION MANUAL( AUTOMATED BLOOD COUNTS AND [...] DESIRABLE: <130 MG/DL <110 MG/DL BORDERLINE-HIGH RISK: 130- 159 MG/DL 110-129 MG/DL HIGH RISK: >160 MG/DL >130 MG/DL *CHILDREN AND ADOLESCENTS REPRESENTS INDIVIDUALA AGED 2-19 YEARS EXCLUSIVE. Lym# 1.3 10E3/uL 0.6-4.1 [employer] ([facility] [email or web address] NORMAL RANGES Age WBC RBC HGB HCT [...] HCT IS 5% LESS SOURCE FOR DATA: [email or web address] DYN 1800 OPERATION MANUAL( AUTOMATED BLOOD COUNTS [...] DESIRABLE: <130 MG/DL <110 MG/DL BORDERLINE-HIGH RISK: 130- 159 MG/DL 110-129 MG/DL HIGH RISK: >160 MG/DL >130 MG/DL *CHILDREN AND ADOLESCENTS REPRESENTS INDIVIDUALA AGED 2-19 YEARS EXCLUSIVE. MXD% 11.7 % 0.1-24.0 [facility] NORMAL RANGES Age WBC RBC HGB HCT [...] HCT IS 5% LESS SOURCE FOR DATA: Ecwid 1800 OPERATION MANUAL( AUTOMATED BLOOD COUNTS AND [...] DESIRABLE: <130 MG/DL <110 MG/DL BORDERLINE-HIGH RISK: 130- 159 MG/DL 110-129 MG/DL HIGH RISK: >160 MG/DL >130 MG/DL *CHILDREN AND ADOLESCENTS REPRESENTS INDIVIDUALA AGED 2-19 YEARS EXCLUSIVE. Neut# 5.4 % 2.0-7.8 RG [facility] NORMAL RANGES Age WBC RBC HGB HCT [...] HCT IS 5% LESS SOURCE FOR DATA: Ecwid 1800 OPERATION MANUAL( AUTOMATED BLOOD COUNTS AND [...] DESIRABLE: <130 MG/DL <110 MG/DL BORDERLINE-HIGH RISK: 130- 159 MG/DL 110-129 MG/DL HIGH RISK: >160 MG/DL >130 MG/DL *CHILDREN AND ADOLESCENTS REPRESENTS INDIVIDUALA AGED 2-19 YEARS EXCLUSIVE. MXD# 0.9 10E3/uL 0.0-1.8 [facility] ([facility] NORMAL RANGES Age WBC RBC HGB HCT [...] HCT IS 5% LESS SOURCE FOR DATA: [email or web address] DYN 1800 OPERATION MANUAL( AUTOMATED BLOOD COUNTS [...] DESIRABLE: <130 MG/DL <110 MG/DL BORDERLINE-HIGH RISK: 130- 159 MG/DL 110-129 MG/DL HIGH RISK: >160 MG/DL >130 MG/DL *CHILDREN AND ADOLESCENTS REPRESENTS INDIVIDUALA AGED 2-19 YEARS EXCLUSIVE. MPV 8.6 fL 9.0-13.0 Below low normal [facility] ( [facility] NORMAL RANGES Age WBC RBC HGB HCT [...] HCT IS 5% LESS SOURCE FOR DATA: Ecwid 1800 OPERATION MANUAL( AUTOMATED BLOOD COUNTS AND [...] DESIRABLE: <130 MG/DL <110 MG/DL BORDERLINE-HIGH RISK: 130- 159 MG/DL 110-129 MG/DL HIGH RISK: >160 MG/DL >130 MG/DL *CHILDREN AND ADOLESCENTS REPRESENTS INDIVIDUALA AGED 2-19 YEARS EXCLUSIVE. ID Date Data Source [id number] 09/24/2020 10:21:00 AM EDT [facility] ([facility] Name Value Range Interpretation Code Description Data Julianna rce(s) Supporting Document(s) Chol 124 mg/dL 0-200 [facility] ([facility] NORMAL RANGES Age WBC RBC HGB HCT [...] HCT IS 5% LESS SOURCE FOR DATA: [email or web address] DYN 1800 OPERATION MANUAL( AUTOMATED BLOOD COUNTS [...] DESIRABLE: <130 MG/DL <110 MG/DL BORDERLINE-HIGH RISK: 130- 159 MG/DL 110-129 MG/DL HIGH RISK: >160 MG/DL >130 MG/DL *CHILDREN AND ADOLESCENTS REPRESENTS INDIVIDUALA AGED 2-19 YEARS EXCLUSIVE. Trig 118 mg/dL 35-200 [facility] ([facility] NORMAL RANGES Age WBC RBC HGB HCT [...] HCT IS 5% LESS SOURCE FOR DATA: Ecwid 1800 OPERATION MANUAL( AUTOMATED BLOOD COUNTS AND [...] DESIRABLE: <130 MG/DL <110 MG/DL BORDERLINE-HIGH RISK: 130- 159 MG/DL 110-129 MG/DL HIGH RISK: >160 MG/DL >130 MG/DL *CHILDREN AND ADOLESCENTS REPRESENTS INDIVIDUALA AGED 2-19 YEARS EXCLUSIVE. Cholesterol in HDL [Mass/volume] in Serum or Plasma 36 mg/dL 35-55 [facility] ([facility] NORMAL RANGES Age WBC RBC HGB HCT [...] HCT IS 5% LESS SOURCE FOR DATA: Ecwid 1800 OPERATION MANUAL( AUTOMATED BLOOD COUNTS AND [...] DESIRABLE: <130 MG/DL <110 MG/DL BORDERLINE-HIGH RISK: 130- 159 MG/DL 110-129 MG/DL HIGH RISK: >160 MG/DL >130 MG/DL *CHILDREN AND ADOLESCENTS REPRESENTS INDIVIDUALA AGED 2-19 YEARS EXCLUSIVE. Cho/HDL Ratio 3.5 [employer]C [employer] ([facility] [email or web address] NORMAL RANGES Age WBC RBC HGB HCT [...] HCT IS 5% LESS SOURCE FOR DATA: Ecwid 1800 OPERATION MANUAL( AUTOMATED BLOOD COUNTS AND [...] DESIRABLE: <130 MG/DL <110 MG/DL BORDERLINE-HIGH RISK: 130- 159 MG/DL 110-129 MG/DL HIGH RISK: >160 MG/DL >130 MG/DL *CHILDREN AND ADOLESCENTS REPRESENTS INDIVIDUALA AGED 2-19 YEARS EXCLUSIVE. LDL_C 64 Calc 75-129 Below low normal [facility] ( [facility] NORMAL RANGES Age WBC RBC HGB HCT [...] HCT IS 5% LESS SOURCE FOR DATA: Ecwid 1800 OPERATION MANUAL( AUTOMATED BLOOD COUNTS AND [...] DESIRABLE: <130 MG/DL <110 MG/DL BORDERLINE-HIGH RISK: 130- 159 MG/DL 110-129 MG/DL HIGH RISK: >160 MG/DL >130 MG/DL *CHILDREN AND ADOLESCENTS REPRESENTS INDIVIDUALA AGED 2-19 YEARS EXCLUSIVE. ID Date Data Source [id number] 09/24/2020 10:21:00 AM EDT [facility] ([facility] Name Value Range Interpretation Code Description Data Julianna rce(s) Supporting Document(s) Creatine kinase [Enzymatic activity/volume] in Serum or Plasma 50 U /L 39-308 [facility] ([facility] NORMAL RANGES Age WBC RBC HGB HCT [...] HCT IS 5% LESS SOURCE FOR DATA: Ecwid 1800 OPERATION MANUAL( AUTOMATED BLOOD COUNTS AND [...] ADOLESCENTS REPRESENTS INDIVIDUALA AGED 2-19 YEARS EXCLUSIVE. ID Date Data Source [id number] 09/24/2020 10:21:00 AM EDT [facility] ([facility] Name Value Range Interpretation Code Description Data Julianna rce(s) Supporting Document(s) Color Laboratory test result [facility] ([facility] NORMAL RANGES Age WBC RBC HGB HCT [...] HCT IS 5% LESS SOURCE FOR DATA: Ecwid 1800 OPERATION MANUAL( AUTOMATED BLOOD COUNTS AND [...] ADOLESCENTS REPRESENTS INDIVIDUALA AGED 2-19 YEARS EXCLUSIVE. Glucose-Ua Laboratory test result [facility] ([facility] NORMAL RANGES Age WBC RBC HGB HCT [...] HCT IS 5% LESS SOURCE FOR DATA: Ecwid 1800 OPERATION MANUAL( AUTOMATED BLOOD COUNTS AND [...] ADOLESCENTS REPRESENTS INDIVIDUALA AGED 2-19 YEARS EXCLUSIVE. Clarity Laboratory test result [facility] ([facility] NORMAL RANGES Age WBC RBC HGB HCT [...] HCT IS 5% LESS SOURCE FOR DATA: Ecwid 1800 OPERATION MANUAL( AUTOMATED BLOOD COUNTS AND [...] ADOLESCENTS REPRESENTS INDIVIDUALA AGED 2-19 YEARS EXCLUSIVE. Bilirubin,Urine Laboratory test result [facility] ([facility] NORMAL RANGES Age WBC RBC HGB HCT [...] HCT IS 5% LESS SOURCE FOR DATA: Ecwid 1800 OPERATION MANUAL( AUTOMATED BLOOD COUNTS AND [...] ADOLESCENTS REPRESENTS INDIVIDUALA AGED 2-19 YEARS EXCLUSIVE. Ketone Laboratory test result [facility] ([facility] NORMAL RANGES Age WBC RBC HGB HCT [...] HCT IS 5% LESS SOURCE FOR DATA: Ecwid 1800 OPERATION MANUAL( AUTOMATED BLOOD COUNTS AND [...] ADOLESCENTS REPRESENTS INDIVIDUALA AGED 2-19 YEARS EXCLUSIVE. pH 5.0 # 5.0-8.0 [facility] ([facility] NORMAL RANGES Age WBC RBC HGB HCT [...] HCT IS 5% LESS SOURCE FOR DATA: [employer] DYN 1800 OPERATION MANUAL( AUTOMATED BLOOD COUNTS [...] ADOLESCENTS REPRESENTS INDIVIDUALA AGED 2-19 YEARS EXCLUSIVE. Blood - Ua Laboratory test result Abnormal (applies to non -numeric results) [facility] ([facility] NORMAL RANGES Age WBC RBC HGB HCT [...] HCT IS 5% LESS SOURCE FOR DATA: Ecwid 1800 OPERATION MANUAL( AUTOMATED BLOOD COUNTS AND [...] ADOLESCENTS REPRESENTS INDIVIDUALA AGED 2-19 YEARS EXCLUSIVE. Protein 100 mg/dL Abnormal (applies to non-numeric res ults) [facility] ([facility] NORMAL RANGES Age WBC RBC HGB HCT [...] HCT IS 5% LESS SOURCE FOR DATA: Ecwid 1800 OPERATION MANUAL( AUTOMATED BLOOD COUNTS AND [...] ADOLESCENTS REPRESENTS INDIVIDUALA AGED 2-19 YEARS EXCLUSIVE. Urobilinogen 0.2 NA 0.2-1.0 [employer] [facility] NORMAL RANGES Age WBC RBC HGB HCT [...] HCT IS 5% LESS SOURCE FOR DATA: [email or web address] DYN 1800 OPERATION MANUAL( AUTOMATED BLOOD COUNTS [...] ADOLESCENTS REPRESENTS INDIVIDUALA AGED 2-19 YEARS EXCLUSIVE. Nitrite Laboratory test result RG ([facility] NORMAL RANGES Age WBC RBC HGB HCT [...] HCT IS 5% LESS SOURCE FOR DATA: Ecwid 1800 OPERATION MANUAL( AUTOMATED BLOOD COUNTS AND [...] ADOLESCENTS REPRESENTS INDIVIDUALA AGED 2-19 YEARS EXCLUSIVE. Leukocyte Laboratory test result Abnormal (applies to non -numeric results) [facility] ([facility] NORMAL RANGES Age WBC RBC HGB HCT [...] HCT IS 5% LESS SOURCE FOR DATA: Ecwid 1800 OPERATION MANUAL( AUTOMATED BLOOD COUNTS AND [...] ADOLESCENTS REPRESENTS INDIVIDUALA AGED 2-19 YEARS EXCLUSIVE. RBC-Ua Laboratory test result 0-3 Abnormal (applies to non -numeric results) [facility] ([facility] NORMAL RANGES Age WBC RBC HGB HCT [...] HCT IS 5% LESS SOURCE FOR DATA: [employer] DYN 1800 OPERATION MANUAL( AUTOMATED BLOOD COUNTS [...] ADOLESCENTS REPRESENTS INDIVIDUALA AGED 2-19 YEARS EXCLUSIVE. Epithelial Cells - Ua Laboratory [facility] NORMAL RANGES Age WBC RBC HGB HCT [...] HCT IS 5% LESS SOURCE FOR DATA: Ecwid 1800 OPERATION MANUAL( AUTOMATED BLOOD COUNTS AND [...] ADOLESCENTS REPRESENTS INDIVIDUALA AGED 2-19 YEARS EXCLUSIVE. Bacteria - Ua Laboratory test result Abnormal (applies to non-numeric results) RG ([facility] ) NORMAL RANGES Age WBC RBC HGB HCT [...] HCT IS 5% LESS SOURCE FOR DATA: Ecwid 1800 OPERATION MANUAL( AUTOMATED BLOOD COUNTS AND [...] ADOLESCENTS REPRESENTS INDIVIDUALA AGED 2-19 YEARS EXCLUSIVE. WBC-Ua Laboratory test result 0-5 Abnormal (applies to non -numeric results) [facility] ([facility] NORMAL RANGES Age WBC RBC HGB HCT [...] HCT IS 5% LESS SOURCE FOR DATA: [email or web address] DYN 1800 OPERATION MANUAL( AUTOMATED BLOOD COUNTS [...] ADOLESCENTS REPRESENTS INDIVIDUALA AGED 2-19 YEARS EXCLUSIVE. [facility] Laboratory test result [facility] ([facility] NORMAL RANGES Age WBC RBC HGB HCT [...] HCT IS 5% LESS SOURCE FOR DATA: Ecwid 1800 OPERATION MANUAL( AUTOMATED BLOOD COUNTS AND [...] ADOLESCENTS REPRESENTS INDIVIDUALA AGED 2-19 YEARS EXCLUSIVE. ID Date Data Source [id number] 09/24/2020 10:21:00 AM EDT [facility] ([facility] Name Value Range Interpretation Code Description Data Julianna rce(s) Supporting Document(s) Glu 113 mg/dL 70-110 Above high normal [facility] ([facility] NORMAL RANGES Age WBC RBC HGB HCT [...] HCT IS 5% LESS SOURCE FOR DATA: Ecwid 1800 OPERATION MANUAL( AUTOMATED BLOOD COUNTS AND [...] ADOLESCENTS REPRESENTS INDIVIDUALA AGED 2-19 YEARS EXCLUSIVE. BUN 37 mg/dL 8-23 Above high normal [facility] ([facility] NORMAL RANGES Age WBC RBC HGB HCT [...] HCT IS 5% LESS SOURCE FOR DATA: Ecwid 1800 OPERATION MANUAL( AUTOMATED BLOOD COUNTS AND [...] ADOLESCENTS REPRESENTS INDIVIDUALA AGED 2-19 YEARS EXCLUSIVE. Creat 2.9 mg/dL 0.7-1.2 Above high normal [facility] ([facility] NORMAL RANGES Age WBC RBC HGB HCT [...] HCT IS 5% LESS SOURCE FOR DATA: Ecwid 1800 OPERATION MANUAL( AUTOMATED BLOOD COUNTS AND [...] ADOLESCENTS REPRESENTS INDIVIDUALA AGED 2-19 YEARS EXCLUSIVE. BUN/Creatinine Ratio 12.6 CALC [facility] ([facility] NORMAL RANGES Age WBC RBC HGB HCT [...] HCT IS 5% LESS SOURCE FOR DATA: Ecwid 1800 OPERATION MANUAL( AUTOMATED BLOOD COUNTS AND [...] ADOLESCENTS REPRESENTS INDIVIDUALA AGED 2-19 YEARS EXCLUSIVE. Na 139 mmol/L 136-145 [facility] ([facility] NORMAL RANGES Age WBC RBC HGB HCT [...] HCT IS 5% LESS SOURCE FOR DATA: Ecwid 1800 OPERATION MANUAL( AUTOMATED BLOOD COUNTS AND [...] ADOLESCENTS REPRESENTS INDIVIDUALA AGED 2-19 YEARS EXCLUSIVE. K 4.1 mmol/L 3.5-5.1 [facility] ([facility] NORMAL RANGES Age WBC RBC HGB HCT [...] HCT IS 5% LESS SOURCE FOR DATA: Ecwid 1800 OPERATION MANUAL( AUTOMATED BLOOD COUNTS AND [...] ADOLESCENTS REPRESENTS INDIVIDUALA AGED 2-19 YEARS EXCLUSIVE. CL 102.8 mmol/L 98.0-107.0 [facility] ([facility] NORMAL RANGES Age WBC RBC HGB HCT [...] HCT IS 5% LESS SOURCE FOR DATA: [email or web address] DYN 1800 OPERATION MANUAL( AUTOMATED BLOOD COUNTS [...] ADOLESCENTS REPRESENTS INDIVIDUALA AGED 2-19 YEARS EXCLUSIVE. Co2 23.0 mmol/L 22.0-29.0 [employer] ([facility] NORMAL RANGES Age WBC RBC HGB HCT [...] HCT IS 5% LESS SOURCE FOR DATA: Ecwid 1800 OPERATION MANUAL( AUTOMATED BLOOD COUNTS AND [...] ADOLESCENTS REPRESENTS INDIVIDUALA AGED 2-19 YEARS EXCLUSIVE. TP 6.1 g/dL 6.6-8.7 Below low normal [facility] ( [facility] NORMAL RANGES Age WBC RBC HGB HCT [...] HCT IS 5% LESS SOURCE FOR DATA: Ecwid 1800 OPERATION MANUAL( AUTOMATED BLOOD COUNTS AND [...] ADOLESCENTS REPRESENTS INDIVIDUALA AGED 2-19 YEARS EXCLUSIVE. CA 9.1 mg/dL 8.6-10.2 [facility] ([facility] NORMAL RANGES Age WBC RBC HGB HCT [...] HCT IS 5% LESS SOURCE FOR DATA: Ecwid 1800 OPERATION MANUAL( AUTOMATED BLOOD COUNTS AND [...] ADOLESCENTS REPRESENTS INDIVIDUALA AGED 2-19 YEARS EXCLUSIVE. Alb 4.0 g/dL 3.5-5.2 [facility] ([facility] NORMAL RANGES Age WBC RBC HGB HCT [...] HCT IS 5% LESS SOURCE FOR DATA: Ecwid 1800 OPERATION MANUAL( AUTOMATED BLOOD COUNTS AND [...] ADOLESCENTS REPRESENTS INDIVIDUALA AGED 2-19 YEARS EXCLUSIVE. Globulin 2.1 CALC [facility] ([facility] NORMAL RANGES Age WBC RBC HGB HCT [...] HCT IS 5% LESS SOURCE FOR DATA: Ecwid 1800 OPERATION MANUAL( AUTOMATED BLOOD COUNTS AND [...] ADOLESCENTS REPRESENTS INDIVIDUALA AGED 2-19 YEARS EXCLUSIVE. A/G Ratio 1.9 CALC [employer] ([facility] NORMAL RANGES Age WBC RBC HGB HCT [...] HCT IS 5% LESS SOURCE FOR DATA: Ecwid 1800 OPERATION MANUAL( AUTOMATED BLOOD COUNTS AND [...] ADOLESCENTS REPRESENTS INDIVIDUALA AGED 2-19 YEARS EXCLUSIVE. Alt (SGPT) 21 U/L 0-41 [facility] ([facility] NORMAL RANGES Age WBC RBC HGB HCT [...] HCT IS 5% LESS SOURCE FOR DATA: Ecwid 1800 OPERATION MANUAL( AUTOMATED BLOOD COUNTS AND [...] ADOLESCENTS REPRESENTS INDIVIDUALA AGED 2-19 YEARS EXCLUSIVE. Alp 120.8 U/L 40-129 [facility] NORMAL RANGES Age WBC RBC HGB HCT [...] HCT IS 5% LESS SOURCE FOR DATA: Ecwid 1800 OPERATION MANUAL( AUTOMATED BLOOD COUNTS AND [...] ADOLESCENTS REPRESENTS INDIVIDUALA AGED 2-19 YEARS EXCLUSIVE. Ast (Sgot) 15 U/L 0-40 [facility] NORMAL RANGES Age WBC RBC HGB HCT [...] HCT IS 5% LESS SOURCE FOR DATA: Ecwid 1800 OPERATION MANUAL( AUTOMATED BLOOD COUNTS AND [...] ADOLESCENTS REPRESENTS INDIVIDUALA AGED 2-19 YEARS EXCLUSIVE. Osmolality-Calculated 287.7 CALC [facility] ([facility] NORMAL RANGES Age WBC RBC HGB HCT [...] HCT IS 5% LESS SOURCE FOR DATA: Ecwid 1800 OPERATION MANUAL( AUTOMATED BLOOD COUNTS AND [...] ADOLESCENTS REPRESENTS INDIVIDUALA AGED 2-19 YEARS EXCLUSIVE. Tbili 0.49 mg/dL 0.0-1.2 [facility] NORMAL RANGES Age WBC RBC HGB HCT [...] HCT IS 5% LESS SOURCE FOR DATA: Ecwid 1800 OPERATION MANUAL( AUTOMATED BLOOD COUNTS AND [...] ADOLESCENTS REPRESENTS INDIVIDUALA AGED 2-19 YEARS EXCLUSIVE. eGFR 22 # [facility] ( [facility] CKD-EPI Anion Gap 18 mmol/L [facility] ([facility] NORMAL RANGES Age WBC RBC HGB HCT [...] HCT IS 5% LESS SOURCE FOR DATA: Ecwid 1800 OPERATION MANUAL( AUTOMATED BLOOD COUNTS AND [...] ADOLESCENTS REPRESENTS INDIVIDUALA AGED 2-19 YEARS EXCLUSIVE. eGFR Non-Afr. Fijian 19 # RG ([facility] CKD-EPI ID Date Data Source [id number] 07/21/2020 12:45:00 PM EDT RG ([facility] Name Value Range Interpretation Code Description Data Julianna rce(s) Supporting Document(s) Bacteria identified in Blood by Culture Laboratory test result RG ([facility] No growth after 72 hours . All specimens observed for 5 days. Results final at that time. No growth after 48 hours . All specimens observed for 5 days. Results final at that time. No growth after 24 hours . All specimens observed for 5 days. Results final at that time. NO GROWTH AFTER 5 DAYS ID Date Data Source [id number] 07/21/2020 12:45:00 PM EDT [facility] ([facility] Name Value Range Interpretation Code Description Data Julianna rce(s) Supporting Document(s) Gram Stain Laboratory test result Normal (applies to non-n umeric results) [facility] ([facility] MANY WBCS MODERATE GRAM POSITIVE COCCI IN PAIRS AND CLUSTERS Wound Culture Laboratory test result Normal (applies t o non-numeric results) [facility] ([facility] <content>FULL REPORT IN LAB NOTES (eCW a nd [facility]).</content>
<content></content>
<content>ORGANISM 1: KLEBSIELLA OXYTOCA ESBL</content>
<content></content>
<content>QUANTITY OF GROWTH FEW</content>
<content></content>
<content>ORGANISM 2: STAPHYLOCOCCUS AUREUS</content>
<content></content>
<content>QUANTITY OF GROWTH MODERATE</content>
<content></content>
<content></content>
<content> ORGANISM 3: CORYNEBACTERIUM SPECIES</content>
<content></content>
<content>QUANTITY OF GROWTH MODERATE</content>
<content>Many species of Coryneform bacteria are part of the</content>
<content>normal omega of the skin and mucous membranes in</content>
<content>humans. Repeated isolation or a coryneform bacterium</content>
<content>growing in pure culture may require consultation with</content>
<content>an infectious disease specialist. There are currently</content>
<content>no susceptibility standards for these organisms.</content>
<content></content>
<content></content>
<conten t>ORGANISM 1: KLEBSIELLA OXYTOCA ESBL</content>
<content>ORGANISM 2: STAPHYLOCOCCUS AUREUS</content>
<content>ORGANISM 3: CORYNEBACTERIUM SPECIES</content>
<content></content>
<content>KLEBSIELLA OXYTOCA ESBL: REACTION</content>
<content>TRIMETHOPRIM/SULFAMETHOXAZOLE IV 160mg TMP & 800mg SMXq6h <=20 S</content>
<content>TRIMETHOPRIM/SULFAMETHOXAZOLE PO Bactrim DS Bid <=20 S</content>
<content>AMPICILLIN IV 500mg q6h >=32 R</content>
<content>AMPICILLIN PO 500mg q6h fasting >=32 R</content>
<content>GENTAMICIN IV 80mg q8h <=1 S</content>
<content>CEFAZOLIN IV 1gm q8h >=64 R</content>
<content>LEVOFLOXACIN IV 500mg qd 0.5 S</content>
<content>LEVOFLOXACIN PO 250mg qd 0.5 S</content>
<content>LEVOFLOXACIN PO 500mg qd 0.5 S</content>
<content>TOBRAMYCIN IV 80mg q8h <=1 S</content>
<content> CEFTRIAXONE IV 1gm q24h <=1 R</content>
<content>CEFTAZIDIME IV 1gm q8h <=1 R</content>
<content>AMPICILLIN/SULBACTAM IV 1.5g q6h >=32 R</content>
<content>PIPERACILLIN/TAZOBACTAM IV 2.25 gm q6h 8 S</content>
<content>AZTREONAM IV 1gm q8h <=1 R</content>
<content>ERTAPENEM IV 1gm qd <=0.5 S</content>
<content>MEROPENEM IV 1 gm q8h <=0.25 S</content>
<content>MEROPENEM IV 500 mg q8h <=0.25 S</content>
<content>TIGECYCLINE IV 50mg q12h 4 I</content>
<content>CEFEPIME IV 1 gm q12h <=1 R</content>
<content>CEFEPIME IV 2 gm q12h <=1 R</content>
<content>EXTD BRD SPCTRM BETA LACTAMASE IV NEGATIVE FOR ESBL</content>
<content></content>
<content>STAPHYLOCOCCUS AUREUS: REACTION</content>
<content>ICR (INDUCIBLE CC RESISTANCE) IV ICR TEST RESULT</content>
<content>TETRACYCLINE PO 250 mg qid <=1 S</content>
<content>PENICILLIN G IV 1 mu q6H 0.12 R</content>
<content>PENICILLIN G IV 1 mu q6h 0.12 R</content>
<content>PENICILLIN G PO 250mg q6h fasting 0.12 R</content>
<content> TRIMETHOPRIM/SULFAMETHOXAZOLE IV 160mg TMP & 800mg SMXq6h <=10 S</content>
<content>TRIMETHOPRIM/SULFAMETHOXAZOLE PO Bactrim DS Bid <=10 S</content>
<content>ERYTHROMYCIN IV 500mg q6h <=0.25 S</content>
<content>ERYTHROMYCIN PO 500mg q6h <=0.25 S</content>
<content>GENTAMICIN IV 80mg q8h <=0.5 S</content>
<content>CLINDAMYCIN IV 600mg q6h 0.25 S</content>
<content>CLINDAMYCIN PO 150mg q6h 0.25 S</content>
<content>NITROFURANTOIN PO 100mg BID <=16 S</content>
<content>OXACILLIN IV 500mg q6h 0.5 S</content>
<content>VANCOMYCIN IV 500mg q8h 1 S</content>
<content> LINEZOLID (ZYVOX) IV 600MG Q12HR 2 S</content>
<content>LINEZOLID (ZYVOX) PO 600MG Q12HR 2 S</content>
<content>An isolate with a (+) POSITIVE ICR test is considered</content>
<content>CLINDAMYCIN RESISTANT; however, clindamycin may still</content>
<content>be effective in some patients.</content>
< content>An isolate with a (-) NEGATIVE ICR test is considered</content>
<content>CLIDAMYCIN SENSITIVE.</content>
<content>Oxacillin result predicts susceptibility to all penicillinase-stable</content>
<content>penicillins (Nafcillin, Dicloxacilin), Cephalosporins, Carbapenems,</content>
<content>Amoxicillin/Clavulanate & Ampicillin/Sulbactam per CSLI standards.</content>
<content></content> ID Date Data Source [id number] 07/21/2020 12:37:00 PM EDT [facility] ([facility] Name Value Range Interpretation Code Description Data Julianna rce(s) Supporting Document(s) Erythrocyte sedimentation rate by Westergren method 56 mm/hr 0-20 Above high normal [facility] ([facility] ) ID Date Data Source [id number] 07/21/2020 12:37:00 PM EDT [facility] ([facility] Name Value Range Interpretation Code Description Data Julianna rce(s) Supporting Document(s) White Blood Count 8.1 10 4.0-10.0 Normal (applies to non-numeri c results) [facility] ([facility] Hematocrit 38.3 % 42.0-52.0 Below low normal [facility] ( [facility] Red Blood Count 3.75 10 4.30-6.10 Below low normal [facility] ([facility] Hemoglobin 12.4 g/dL 13.5-17.5 Below low normal [facility] ( [facility] Mean Corpuscular Hemoglobin 33.1 pg 27.0-33.0 Above high normal [facility] ([facility] Mean Corpuscular Volume 102.1 fl 80.0-96.0 Above high normal [facility] ([facility] Red Cell Distribution Width 15.1 % 11.5-14.5 Above high normal [facility] ([facility] Mean Corpuscular HGB Conc 32.4 g/dL 32.0-36.5 Normal (applies to non-numeric results) [facility] ([facility] ) Platelet Count, Automated 153 10 150-450 Normal (applies to non-numeric results) [facility] ([facility] ) Lymph % 15.7 % 24.0-44.0 Below low normal [facility] ( [facility] Neutrophils % 68.8 % 36.0-66.0 Above high normal MED[facility] ([facility] Eos % 5.8 % 0.0-3.0 Above high normal [facility] ([facility] Ashe % 8.8 % 2.0-8.0 Above high normal [facility] ([facility] Immature Granulocyte % 0.4 % 0-3.0 Normal (applies to non-n umeric results) [facility] ([facility] Baso % 0.5 % 0.0-1.0 Normal (applies to non-numeric resul ts) [facility] ([facility] Nucleated Red Blood Cell % 0.0 % 0-0 Normal (applies to n on-numeric results) [facility] ([facility] Neutrophils # 5.6 10 1.5-8.5 Normal (applies to non-numeric re sults) [facility] ([facility] Lymph # 1.3 10 1.5-5.0 Below low normal [facility] ( [facility] Ashe # 0.7 10 0.0-0.8 Normal (applies to non-numeric resul ts) [facility] ([facility] Eos # 0.5 10 0.0-0.5 Normal (applies to non-numeric resul ts) [facility] ([facility] Baso # 0.0 10 0.0-0.2 Normal (applies to non-numeric resul ts) [facility] ([facility] ID Date Data Source [id number] 07/21/2020 12:37:00 PM EDT [facility] ([facility] Name Value Range Interpretation Code Description Data Julianna rce(s) Supporting Document(s) Lactate [Mass/volume] in Serum or Plasma 1.4 mmol/L 0.4-2.0 Normal (applies to non-numeric results) [facility] ([facility]) Y/N query for Sepsis Lactate Rule: Y C reactive protein [Mass/volume] in Serum or Plasma by High sensitivity method 3.67 mg/dL 0.00-0.30 Above high normal [facility] ([facility] ID Date Data Source [id number] 07/21/2020 12:37:00 PM EDT [facility] ([facility] Name Value Range Interpretation Code Description Data Julianna rce(s) Supporting Document(s) Glucose, Fasting 137 mg/dL 70-100 Above high normal M [facility] ([facility] Blood Urea Nitrogen 41 mg/dL 7-18 Above high normal [facility] ([facility] Creatinine For GFR 2.44 mg/dL 0.70-1.30 Above high normal [facility] ([facility] Glomerular Filtration Rate 27.1 Below low normal [facility] ([facility] <content>Units are mL/min/1.73 m2</content>
<content></content>
<content>Chronic Kidney Disease Staging per NKF:</content>
<content></content>
<content>Stage I & II GFR >=60 Normal to Mildly Decreased</content>
<content>Stage III GFR 30- 59 Moderately Decreased</content>
<content>Stage IV GFR 15-29 Severely Decreased</content>
<content>Stage V GFR <15 Very Little GFR Left</content>
<content>ESRD GFR <15 on ENVIRONMENTAL QUALITY ANALYST</content>
<content></content> Sodium Level 142 meq/L 136-145 Normal (applies to non-numeric res ults) [facility] ([facility] Chloride Level 108 meq/L 98-107 Above high normal [facility] ([facility] Potassium Serum 4.0 meq/L 3.5-5.1 Normal (applies to non-numeric results) [facility] ([facility] Carbon Dioxide Level 29 meq/L 21-32 Normal (applies to non-num stephen results) [facility] ([facility] Anion Gap 5 meq/L 8-16 Below low normal [facility] ( [facility] Calcium Level 9.2 mg/dL 8.8-10.2 Normal (applies to non-numeric re sults) [facility] ([facility] ID Date Data Source [id number] 06/16/2020 08:59:00 AM EDT [facility] ([facility]) Name Value Range Interpretation Code Description Data Julianna rce(s) Supporting Document(s) Magnesium Level 2.02 [facility] ([facility]) ID Date Data Source [id number] 06/16/2020 08:59:00 AM EDT [facility] ([facility]) Name Value Range Interpretation Code Description Data Julianna rce(s) Supporting Document(s) White Blood Count 7.7 4.3-10.9 [facility] ([facility]) Red Blood Count 3.98 4.70-6.20 [facility] ([facility]) Platelets 203 130-400 [facility] Hematocrit 40.2 39.0-50.0 [facility] ([facility]) Hemoglobin 13.1 13.0-17.0 [facility] ([facility]) ID Date Data Source [id number] 06/16/2020 08:59:00 AM EDT [facility] ([facility]) Name Value Range Interpretation Code Description Data Julianna rce(s) Supporting Document(s) Glucose 179 70-100 [facility] ([facility]) Creatinine 2.2 0.6-1.5 [facility] ([facility]) Blood Urea Nitrogen 40.1 5-21 [facility] ([facility]) Sodium 135.7 136-146 [facility] ([facility]) Glomerular filtration rate/1.73 sq M.pre dicted [Volume Rate/Area] in Serum or Plasma by Creatinine-based formula (MDRD) 29 [facility] ([facility]) Potassium 4.71 3.5-5.3 [facility] ([facility]) Carbon Dioxide 26.3 20-32 [facility] ([facility]) Chloride 102.4 98-110 [facility] ([facility] Calcium 9.2 8.4-10.4 [facility] ([facility]) Phosphorus 3.2 [facility] ([facility]) Albumin 4.0 3.5-4.7 [facility] ([facility]) ID Date Data Source [id number] 03/13/2020 12:00:00 AM EST [facility] Gurjit Fish DO Patient Name: MARIA VICTORIA MACIAS [facility] Date of : [address] [address] Date of Exam: 03/13/2020#: Fax: [phone] EXAM: CHEST (2 VIEW) X-RAYCLINICAL INFORMATION: Chronic dyspnea.The latest prior for comparison is a portable examination of 01/13/2020.The lung clark are mildly hyperexpanded status quo. No acute patchyparenchymal opacities or pleural effusions have developed. There is anintracardiac device which is unchanged. The pleural angles are sharp. Theheart is not enlarged. The osseous structures are stable and intact.IMPRESSION:There is no acute cardiopulmonary disease. Allowing for the technicaldifferences between the examinations there is no significant change. Thelung clark are clear as they were on the 2019 examination. The areasuspected of increased parenchymal markings on the portable examination of01/13/2020 represent technical artifact.ARIS Martinez/Samina daniel for referring ARRON MACIAS to our office. Electronically Signed - MARIA ESTHER MAN DO 03/13/20 18:13 Name Value Range Interpretation Code Description Data Julianna rce(s) Supporting Document(s) ID Date Data Source [id number] 03/13/2020 09:36:00 AM EST [facility] ([facility] Name Value Range Interpretation Code Description Data Julianna rce(s) Supporting Document(s) Thyrotropin [Units/volume] in Serum or Plasma 1.814 ulU/mL 0.60-4.8 [facility] ([facility] ID Date Data Source [id number] 03/13/2020 09:36:00 AM EST [facility] ([facility] Name Value Range Interpretation Code Description Data Julianna rce(s) Supporting Document(s) Trig 117 mg/dL 35-200 [facility] NORMAL RANGES Age WBC RBC HGB HCT [...] HCT IS 5% LESS SOURCE FOR DATA: Ecwid 1800 OPERATION MANUAL( AUTOMATED BLOOD COUNTS AND [...] DESIRABLE: <130 MG/DL <110 MG/DL BORDERLINE-HIGH RISK: 130- 159 MG/DL 110-129 MG/DL HIGH RISK: >160 MG/DL >130 MG/DL *CHILDREN AND ADOLESCENTS REPRESENTS INDIVIDUALA AGED 2-19 YEARS EXCLUSIVE. Chol 122 mg/dL 0-200 [facility] NORMAL RANGES Age WBC RBC HGB HCT [...] HCT IS 5% LESS SOURCE FOR DATA: Ecwid 1800 OPERATION MANUAL( AUTOMATED BLOOD COUNTS AND [...] DESIRABLE: <130 MG/DL <110 MG/DL BORDERLINE-HIGH RISK: 130- 159 MG/DL 110-129 MG/DL HIGH RISK: >160 MG/DL >130 MG/DL *CHILDREN AND ADOLESCENTS REPRESENTS INDIVIDUALA AGED 2-19 YEARS EXCLUSIVE. Cholesterol in HDL [Mass/volume] in Serum or Plasma 31 mg/dL 35-55 Below low normal [facility] ([facility] NORMAL RANGES Age WBC RBC HGB HCT [...] HCT IS 5% LESS SOURCE FOR DATA: Ecwid 1800 OPERATION MANUAL( AUTOMATED BLOOD COUNTS AND [...] DESIRABLE: <130 MG/DL <110 MG/DL BORDERLINE-HIGH RISK: 130- 159 MG/DL 110-129 MG/DL HIGH RISK: >160 MG/DL >130 MG/DL *CHILDREN AND ADOLESCENTS REPRESENTS INDIVIDUALA AGED 2-19 YEARS EXCLUSIVE. LDL_C 67 Calc 75-129 Below low normal [facility] ( [facility] NORMAL RANGES Age WBC RBC HGB HCT [...] HCT IS 5% LESS SOURCE FOR DATA: Ecwid 1800 OPERATION MANUAL( AUTOMATED BLOOD COUNTS AND [...] DESIRABLE: <130 MG/DL <110 MG/DL BORDERLINE-HIGH RISK: 130- 159 MG/DL 110-129 MG/DL HIGH RISK: >160 MG/DL >130 MG/DL *CHILDREN AND ADOLESCENTS REPRESENTS INDIVIDUALA AGED 2-19 YEARS EXCLUSIVE. Cho/HDL Ratio 3.9 CALC [facility] ([facility] NORMAL RANGES Age WBC RBC HGB HCT [...] HCT IS 5% LESS SOURCE FOR DATA: Ecwid 1800 OPERATION MANUAL( AUTOMATED BLOOD COUNTS AND [...] DESIRABLE: <130 MG/DL <110 MG/DL BORDERLINE-HIGH RISK: 130- 159 MG/DL 110-129 MG/DL HIGH RISK: >160 MG/DL >130 MG/DL *CHILDREN AND ADOLESCENTS REPRESENTS INDIVIDUALA AGED 2-19 YEARS EXCLUSIVE. ID Date Data Source [id number] 03/13/2020 09:36:00 AM EST [facility] ([facility] Name Value Range Interpretation Code Description Data Julianna rce(s) Supporting Document(s) Creatine kinase [Enzymatic activity/volume] in Serum or Plasma 3 6 U/L 39-308 Below low normal [facility] ([facility] ) NORMAL RANGES Age WBC RBC HGB HCT [...] HCT IS 5% LESS SOURCE FOR DATA: Ecwid 1800 OPERATION MANUAL( AUTOMATED BLOOD COUNTS AND [...] ADOLESCENTS REPRESENTS INDIVIDUALA AGED 2-19 YEARS EXCLUSIVE. ID Date Data Source [id number] 03/13/2020 09:36:00 AM EST [facility] ([facility] [facility] Name Value Range Interpretation Code Description Data Julianna rce(s) Supporting Document(s) Glu 123 mg/dL 70-110 Above high normal [facility] ([facility] NORMAL RANGES Age WBC RBC HGB HCT [...] HCT IS 5% LESS SOURCE FOR DATA: Ecwid 1800 OPERATION MANUAL( AUTOMATED BLOOD COUNTS AND [...] ADOLESCENTS REPRESENTS INDIVIDUALA AGED 2-19 YEARS EXCLUSIVE. Creat 2.8 mg/dL 0.7-1.2 Above high normal [facility] ([facility] NORMAL RANGES Age WBC RBC HGB HCT [...] HCT IS 5% LESS SOURCE FOR DATA: Ecwid 1800 OPERATION MANUAL( AUTOMATED BLOOD COUNTS AND [...] ADOLESCENTS REPRESENTS INDIVIDUALA AGED 2-19 YEARS EXCLUSIVE. BUN 48 mg/dL 8-23 Above high normal [facility] ([facility] NORMAL RANGES Age WBC RBC HGB HCT [...] HCT IS 5% LESS SOURCE FOR DATA: Ecwid 1800 OPERATION MANUAL( AUTOMATED BLOOD COUNTS AND [...] ADOLESCENTS REPRESENTS INDIVIDUALA AGED 2-19 YEARS EXCLUSIVE. Na 140 mmol/L 136-145 [facility] ([facility] NORMAL RANGES Age WBC RBC HGB HCT [...] HCT IS 5% LESS SOURCE FOR DATA: Ecwid 1800 OPERATION MANUAL( AUTOMATED BLOOD COUNTS AND [...] ADOLESCENTS REPRESENTS INDIVIDUALA AGED 2-19 YEARS EXCLUSIVE. BUN/Creatinine Ratio 17.4 CALC [facility] ([facility] NORMAL RANGES Age WBC RBC HGB HCT [...] HCT IS 5% LESS SOURCE FOR DATA: Ecwid 1800 OPERATION MANUAL( AUTOMATED BLOOD COUNTS AND [...] ADOLESCENTS REPRESENTS INDIVIDUALA AGED 2-19 YEARS EXCLUSIVE. CL 103.2 mmol/L 98.0-107.0 RG ([facility] NORMAL RANGES Age WBC RBC HGB HCT [...] HCT IS 5% LESS SOURCE FOR DATA: Ecwid 1800 OPERATION MANUAL( AUTOMATED BLOOD COUNTS AND [...] ADOLESCENTS REPRESENTS INDIVIDUALA AGED 2-19 YEARS EXCLUSIVE. K 4.3 mmol/L 3.5-5.1 [facility] ([facility] NORMAL RANGES Age WBC RBC HGB HCT [...] HCT IS 5% LESS SOURCE FOR DATA: IOANA DYN 1800 OPERATION MANUAL( AUTOMATED BLOOD COUNTS [...] ADOLESCENTS REPRESENTS INDIVIDUALA AGED 2-19 YEARS EXCLUSIVE. Co2 24.6 mmol/L 22.0-29.0 [employer] ([facility] NORMAL RANGES Age WBC RBC HGB HCT [...] HCT IS 5% LESS SOURCE FOR DATA: Ecwid 1800 OPERATION MANUAL( AUTOMATED BLOOD COUNTS AND [...] ADOLESCENTS REPRESENTS INDIVIDUALA AGED 2-19 YEARS EXCLUSIVE. TP 6.4 g/dL 6.6-8.7 Below low normal [facility] ( [facility] NORMAL RANGES Age WBC RBC HGB HCT [...] HCT IS 5% LESS SOURCE FOR DATA: Ecwid 1800 OPERATION MANUAL( AUTOMATED BLOOD COUNTS AND [...] ADOLESCENTS REPRESENTS INDIVIDUALA AGED 2-19 YEARS EXCLUSIVE. CA 9.2 mg/dL 8.6-10.2 [facility] ([facility] NORMAL RANGES Age WBC RBC HGB HCT [...] HCT IS 5% LESS SOURCE FOR DATA: [email or web address] DYN 1800 OPERATION MANUAL( AUTOMATED BLOOD COUNTS [...] ADOLESCENTS REPRESENTS INDIVIDUALA AGED 2-19 YEARS EXCLUSIVE. Alb 4.1 g/dL 3.5-5.2 [facility] ([facility] NORMAL RANGES Age WBC RBC HGB HCT [...] HCT IS 5% LESS SOURCE FOR DATA: Ecwid 1800 OPERATION MANUAL( AUTOMATED BLOOD COUNTS AND [...] ADOLESCENTS REPRESENTS INDIVIDUALA AGED 2-19 YEARS EXCLUSIVE. A/G Ratio 1.8 CALC [facility] ([facility] NORMAL RANGES Age WBC RBC HGB HCT [...] HCT IS 5% LESS SOURCE FOR DATA: Ecwid 1800 OPERATION MANUAL( AUTOMATED BLOOD COUNTS AND [...] ADOLESCENTS REPRESENTS INDIVIDUALA AGED 2-19 YEARS EXCLUSIVE. Alp 165.6 U/L 40-129 Above high normal [facility] ([facility] NORMAL RANGES Age WBC RBC HGB HCT [...] HCT IS 5% LESS SOURCE FOR DATA: [email or web address] DYN 1800 OPERATION MANUAL( AUTOMATED BLOOD COUNTS [...] ADOLESCENTS REPRESENTS INDIVIDUALA AGED 2-19 YEARS EXCLUSIVE. Globulin 2.3 CALC [facility] ([facility] NORMAL RANGES Age WBC RBC HGB HCT [...] HCT IS 5% LESS SOURCE FOR DATA: Ecwid 1800 OPERATION MANUAL( AUTOMATED BLOOD COUNTS AND [...] ADOLESCENTS REPRESENTS INDIVIDUALA AGED 2-19 YEARS EXCLUSIVE. Alt (SGPT) 13 U/L 0-41 [facility] ([facility] NORMAL RANGES Age WBC RBC HGB HCT [...] HCT IS 5% LESS SOURCE FOR DATA: Ecwid 1800 OPERATION MANUAL( AUTOMATED BLOOD COUNTS AND [...] ADOLESCENTS REPRESENTS INDIVIDUALA AGED 2-19 YEARS EXCLUSIVE. Ast (Sgot) 15 U/L 0-40 [facility] NORMAL RANGES Age WBC RBC HGB HCT [...] HCT IS 5% LESS SOURCE FOR DATA: Ecwid 1800 OPERATION MANUAL( AUTOMATED BLOOD COUNTS AND [...] ADOLESCENTS REPRESENTS INDIVIDUALA AGED 2-19 YEARS EXCLUSIVE. Tbili 0.40 mg/dL 0.0-1.2 [facility] ([facility] NORMAL RANGES Age WBC RBC HGB HCT [...] HCT IS 5% LESS SOURCE FOR DATA: Ecwid 1800 OPERATION MANUAL( AUTOMATED BLOOD COUNTS AND [...] ADOLESCENTS REPRESENTS INDIVIDUALA AGED 2-19 YEARS EXCLUSIVE. Osmolality-Calculated 292.9 CALC [facility] ([facility] NORMAL RANGES Age WBC RBC HGB HCT [...] HCT IS 5% LESS SOURCE FOR DATA: Ecwid 1800 OPERATION MANUAL( AUTOMATED BLOOD COUNTS AND [...] ADOLESCENTS REPRESENTS INDIVIDUALA AGED 2-19 YEARS EXCLUSIVE. Anion Gap 16 mmol/L [facility] NORMAL RANGES Age WBC RBC HGB HCT [...] HCT IS 5% LESS SOURCE FOR DATA: Ecwid 1800 OPERATION MANUAL( AUTOMATED BLOOD COUNTS AND [...] ADOLESCENTS REPRESENTS INDIVIDUALA AGED 2-19 YEARS EXCLUSIVE. eGFR Non-Afr. Fijian 20 # [facility] ([facility] NORMAL RANGES Age WBC RBC HGB HCT [...] HCT IS 5% LESS SOURCE FOR DATA: Ecwid 1800 OPERATION MANUAL( AUTOMATED BLOOD COUNTS AND [...] ADOLESCENTS REPRESENTS INDIVIDUALA AGED 2-19 YEARS EXCLUSIVE. eGFR 23 # [facility] ( [facility] NORMAL RANGES Age WBC RBC HGB HCT [...] HCT IS 5% LESS SOURCE FOR DATA: Ecwid 1800 OPERATION MANUAL( AUTOMATED BLOOD COUNTS AND [...] ADOLESCENTS REPRESENTS INDIVIDUALA AGED 2-19 YEARS EXCLUSIVE. ID Date Data Source [id number] 03/13/2020 09:36:00 AM EST [facility] ([facility] Name Value Range Interpretation Code Description Data Julianna rce(s) Supporting Document(s) WBC 9.4 10E3/uL 4.1-10.9 [facility] ([facility] NORMAL RANGES Age WBC RBC HGB HCT [...] HCT IS 5% LESS SOURCE FOR DATA: Ecwid 1800 OPERATION MANUAL( AUTOMATED BLOOD COUNTS AND [...] ADOLESCENTS REPRESENTS INDIVIDUALA AGED 2-19 YEARS EXCLUSIVE. RBC 3.68 10E6/uL 4.20-6.30 Below low normal [facility] ([facility] NORMAL RANGES Age WBC RBC HGB HCT [...] HCT IS 5% LESS SOURCE FOR DATA: Ecwid 1800 OPERATION MANUAL( AUTOMATED BLOOD COUNTS AND [...] ADOLESCENTS REPRESENTS INDIVIDUALA AGED 2-19 YEARS EXCLUSIVE. HGB 12.4 g/dL 12.0-18.0 [facility] ([facility] NORMAL RANGES Age WBC RBC HGB HCT [...] HCT IS 5% LESS SOURCE FOR DATA: IOANA DYN 1800 OPERATION MANUAL( AUTOMATED BLOOD COUNTS [...] ADOLESCENTS REPRESENTS INDIVIDUALA AGED 2-19 YEARS EXCLUSIVE. MCV 101.1 fL 80.0-97.0 Above high normal [facility] ([facility] NORMAL RANGES Age WBC RBC HGB HCT [...] HCT IS 5% LESS SOURCE FOR DATA: Ecwid 1800 OPERATION MANUAL( AUTOMATED BLOOD COUNTS AND [...] ADOLESCENTS REPRESENTS INDIVIDUALA AGED 2-19 YEARS EXCLUSIVE. HCT 37.2 % 37.0-51.0 [facility] ([facility] NORMAL RANGES Age WBC RBC HGB HCT [...] HCT IS 5% LESS SOURCE FOR DATA: Ecwid 1800 OPERATION MANUAL( AUTOMATED BLOOD COUNTS AND [...] ADOLESCENTS REPRESENTS INDIVIDUALA AGED 2-19 YEARS EXCLUSIVE. MCHC 33.3 g/dL 31.0-36.0 [facility] NORMAL RANGES Age WBC RBC HGB HCT [...] HCT IS 5% LESS SOURCE FOR DATA: [email or web address] DYN 1800 OPERATION MANUAL( AUTOMATED BLOOD COUNTS [...] ADOLESCENTS REPRESENTS INDIVIDUALA AGED 2-19 YEARS EXCLUSIVE. MCH 33.7 pg 26.0-32.0 Above high normal [facility] ([facility] NORMAL RANGES Age WBC RBC HGB HCT [...] HCT IS 5% LESS SOURCE FOR DATA: Ecwid 1800 OPERATION MANUAL( AUTOMATED BLOOD COUNTS AND [...] ADOLESCENTS REPRESENTS INDIVIDUALA AGED 2-19 YEARS EXCLUSIVE. PLT 217 10E3/uL 140-440 [facility] ([facility] NORMAL RANGES Age WBC RBC HGB HCT [...] HCT IS 5% LESS SOURCE FOR DATA: Ecwid 1800 OPERATION MANUAL( AUTOMATED BLOOD COUNTS AND [...] ADOLESCENTS REPRESENTS INDIVIDUALA AGED 2-19 YEARS EXCLUSIVE. RDW-CV 15.7 % 11.5-14.5 Above high normal [facility] ([facility] NORMAL RANGES Age WBC RBC HGB HCT [...] HCT IS 5% LESS SOURCE FOR DATA: Ecwid 1800 OPERATION MANUAL( AUTOMATED BLOOD COUNTS AND [...] ADOLESCENTS REPRESENTS INDIVIDUALA AGED 2-19 YEARS EXCLUSIVE. Lym% 12.5 % 10.0-58.5 [facility] NORMAL RANGES Age WBC RBC HGB HCT [...] HCT IS 5% LESS SOURCE FOR DATA: Ecwid 1800 OPERATION MANUAL( AUTOMATED BLOOD COUNTS AND [...] ADOLESCENTS REPRESENTS INDIVIDUALA AGED 2-19 YEARS EXCLUSIVE. Neut% 74.6 % 37.0-92.0 [facility] ([facility] NORMAL RANGES Age WBC RBC HGB HCT [...] HCT IS 5% LESS SOURCE FOR DATA: Ecwid 1800 OPERATION MANUAL( AUTOMATED BLOOD COUNTS AND [...] ADOLESCENTS REPRESENTS INDIVIDUALA AGED 2-19 YEARS EXCLUSIVE. MXD% 12.9 % 0.1-24.0 [facility] NORMAL RANGES Age WBC RBC HGB HCT [...] HCT IS 5% LESS SOURCE FOR DATA: Ecwid 1800 OPERATION MANUAL( AUTOMATED BLOOD COUNTS AND [...] ADOLESCENTS REPRESENTS INDIVIDUALA AGED 2-19 YEARS EXCLUSIVE. Lym# 1.2 10E3/uL 0.6-4.1 [facility] ([facility] NORMAL RANGES Age WBC RBC HGB HCT [...] HCT IS 5% LESS SOURCE FOR DATA: Ecwid 1800 OPERATION MANUAL( AUTOMATED BLOOD COUNTS AND [...] ADOLESCENTS REPRESENTS INDIVIDUALA AGED 2-19 YEARS EXCLUSIVE. MXD# 1.2 10E3/uL 0.0-1.8 RG ([facility] NORMAL RANGES Age WBC RBC HGB HCT [...] HCT IS 5% LESS SOURCE FOR DATA: Ecwid 1800 OPERATION MANUAL( AUTOMATED BLOOD COUNTS AND [...] ADOLESCENTS REPRESENTS INDIVIDUALA AGED 2-19 YEARS EXCLUSIVE. Neut# 7.0 % 2.0-7.8 [facility] ([facility] NORMAL RANGES Age WBC RBC HGB HCT [...] HCT IS 5% LESS SOURCE FOR DATA: Ecwid 1800 OPERATION MANUAL( AUTOMATED BLOOD COUNTS AND [...] ADOLESCENTS REPRESENTS INDIVIDUALA AGED 2-19 YEARS EXCLUSIVE. MPV 9.5 fL 9.0-13.0 [facility] ([facility] NORMAL RANGES Age WBC RBC HGB HCT [...] HCT IS 5% LESS SOURCE FOR DATA: Ecwid 1800 OPERATION MANUAL( AUTOMATED BLOOD COUNTS AND [...] ADOLESCENTS REPRESENTS INDIVIDUALA AGED 2-19 YEARS EXCLUSIVE. ID Date Data Source [id number] 02/12/2020 03:47:00 PM EST [facility] Name Value Range Interpretation Code Description Data Julianna rce(s) Supporting Document(s) Magnesium Level 1.81 [facility] ([facility]) ID Date Data Source [id number] 02/12/2020 03:47:00 PM EST [facility] ([facility] Name Value Range Interpretation Code Description Data Julianna rce(s) Supporting Document(s) White Blood Count 5.1 4.3-10.9 [facility] ([facility]) Red Blood Count 3.38 4.70-6.20 [facility] ([facility]) Hematocrit 35.3 39.0-50.0 [facility] ([facility]) Hemoglobin 11.2 13.0-17.0 [facility] ([facility]) Platelets 197 130-400 [facility] ([facility]) ID Date Data Source [id number] 02/12/2020 03:47:00 PM EST [facility] ([facility] Name Value Range Interpretation Code Description Data Julianna rce(s) Supporting Document(s) Creatinine 2.0 0.6-1.5 [facility] ([facility]) Blood Urea Nitrogen 31.9 5-21 [facility] ([facility]) Glucose 72 70-100 [facility] ([facility]) Glomerular filtration rate/1.73 sq M.pre dicted [Volume Rate/Area] in Serum or Plasma by Creatinine-based formula (MDRD) 32 [facility] ([facility]) Potassium 3.98 3.5-5.3 [facility] ([facility]) Sodium 136.8 136-146 [facility] ([facility]) Chloride 99.8 98-110 [facility] [place] Calcium 9.0 8.4-10.4 [facility] [place] Carbon Dioxide 31.0 20-32 [facility] ([facility] Phosphorus 3.5 [facility] ([facility]) Albumin 3.5 3.5-4.7 [facility] ([facility] [place] ID Date Data Source [id number] 01/13/2020 06:56:00 AM EST [facility] ([facility] Name Value Range Interpretation Code Description Data Julianna rce(s) Supporting Document(s) Coronavirus 2019 Nasopharygeal Laboratory test result [facility] ([facility] Laboratory test finding (navigational concept) Laboratory test r esult Normal (applies to non-numeric results) [facility] ([facility] A false negative result may occur if a s pecimen is improperly collected, transported or handled. False negative results may also occur if inadequate numbers of organisms are present in the specimen. As with any molecular test, mutations within the target regions of Xpert Xpress SARS-CoV-2 could affect primer and/or probe binding resulting in failure to detect the presence of virus. This test cannot rule out diseases caused by other bacterial or viral pathogens. DISCLAIMER: Testing was performed using the [employer] SARS-CoV-2 test. This test was developed and its performance characteristics determined by [employer]. This test has not been FDA cleared or approved. This test has been authorized by FDA under an Emergency Use Authorization (EUA). This test is only authorized for the duration of time the declaration that circumstances exist justifying the authorization of the emergency use of in vitro diagnostic tests for detection of SARS-CoV-2 virus and/or diagnosis of COVID-19 infection under section 564(b)(1) of the Act, 21 U.S.C. 360bbb-3(b)(1), unless the authorization is terminated or revoked sooner. ID Date Data Source [id number] 01/13/2020 05:20:00 AM EST [facility] ([facility] Name Value Range Interpretation Code Description Data Julianna rce(s) Supporting Document(s) Laboratory test finding (navigational concept) 0.01 ng/mL 0 .00-0.08 Normal (applies to non-numeric results) [facility] ([facility] Troponin I.cardiac [Mass/volume] in Serum or Plasma Laboratory test result [facility] ([facility] ID Date Data Source [id number] 01/13/2020 05:03:00 AM EST [facility] ([facility] Name Value Range Interpretation Code Description Data Julianna rce(s) Supporting Document(s) Natriuretic peptide.B prohormone N-Terminal [Mass/volu me] in Serum or Plasma 4334 pg/mL Above high normal [facility] ([facility] Lactate [Mass/volume] in Serum or Plasma 0.9 mmol/L 0.4-2.0 Normal (applies to non-numeric results) [facility] ([facility]) Y/N query for Sepsis Lactate Rule: Y ID Date Data Source [id number] 01/13/2020 05:03:00 AM EST [facility] ([facility] Name Value Range Interpretation Code Description Data Julianna rce(s) Supporting Document(s) Glucose, Fasting 105 mg/dL 70-100 Above high normal [facility] ([facility] Blood Urea Nitrogen 53 mg/dL 7-18 Above high normal [facility] ([facility] Creatinine For GFR 2.67 mg/dL 0.70-1.30 Above high normal [facility] ([facility] Glomerular Filtration Rate 24.4 Below low normal [facility] ([facility] <content>Units are mL/min/1.73 m2</content>
<content></content>
<content>Chronic Kidney Disease Staging per NKF:</content>
<content></content>
<content>Stage I & II GFR >=60 Normal to Mildly Decreased</content>
<content>Stage III GFR 30- 59 Moderately Decreased</content>
<content>Stage IV GFR 15-29 Severely Decreased</content>
<content>Stage V GFR <15 Very Little GFR Left</content>
<content>ESRD GFR <15 on ENVIRONMENTAL QUALITY ANALYST</content>
<content></content> Potassium Serum 5.1 meq/L 3.5-5.1 Normal (applies to non-numeric results) [facility] ([facility] Sodium Level 143 meq/L 136-145 Normal (applies to non-numeric res ults) [facility] ([facility] Carbon Dioxide Level 24 meq/L 21-32 Normal (applies to non-num stephen results) [facility] ([facility] Chloride Level 113 meq/L 98-107 Above high normal [facility] ([facility] Anion Gap 6 meq/L 8-16 Below low normal [facility] ( [facility] Calcium Level 8.6 mg/dL 8.8-10.2 Below low normal [facility] ([facility] ID Date Data Source [id number] 01/13/2020 05:03:00 AM EST [facility] ([facility] Name Value Range Interpretation Code Description Data Julianna rce(s) Supporting Document(s) Ast/Sgot 28 U/L 7-37 Normal (applies to non-numeric resul ts) [facility] ([facility] Alt/SGPT 29 U/L 12-78 Normal (applies to non-numeric resul ts) [facility] ([facility] Alkaline Phosphatase 178 U/L 45-117 Above high normal [facility] ([facility] Bilirubin,Total 0.3 mg/dL 0.2-1.0 Normal (applies to non-numeric results) [facility] ([facility] Total Protein 6.8 GM/DL 6.4-8.2 Normal (applies to non-numeric re sults) [facility] ([facility] Bilirubin,Direct 0.1 mg/dL 0.0-0.2 Normal (applies to non-numeric results) [facility] ([facility] Albumin/Globulin Ratio 1.1 Normal (applies to non-n umeric results) [facility] ([facility] Albumin 3.5 GM/DL 3.2-5.2 Normal (applies to non-numeric resul ts) [facility] ([facility] ID Date Data Source [id number] 01/13/2020 05:03:00 AM EST [facility] ([facility] Name Value Range Interpretation Code Description Data Julianna rce(s) Supporting Document(s) White Blood Count 9.4 10 4.0-10.0 Normal (applies to non-numeri c results) [facility] ([facility] Red Blood Count 3.69 10 4.30-6.10 Below low normal [facility] ([facility] Hemoglobin 12.0 g/dL 13.5-17.5 Below low normal [facility] ( [facility] Hematocrit 38.1 % 42.0-52.0 Below low normal [facility] ( [facility] Mean Corpuscular Volume 103.3 fl 80.0-96.0 Above high normal [facility] ([facility] Mean Corpuscular Hemoglobin 32.5 pg 27.0-33.0 Norm al (applies to non-numeric results) [facility] ([facility] ) Mean Corpuscular HGB Conc 31.5 g/dL 32.0-36.5 Below low normal [facility] ([facility] Red Cell Distribution Width 15.1 % 11.5-14.5 Above high normal [facility] ([facility] Platelet Count, Automated 173 10 150-450 Normal (applies to non-numeric results) [facility] ([facility] ) Neutrophils % 70.6 % 36.0-66.0 Above high normal [facility] ([facility] Lymph % 13.0 % 24.0-44.0 Below low normal [facility] ( [facility] Ashe % 5.7 % 0.0-5.0 Above high normal [facility] ([facility] Eos % 9.9 % 0.0-3.0 Above high normal [facility] ([facility] Baso % 0.5 % 0.0-1.0 Normal (applies to non-numeric resul ts) [facility] ([facility] Immature Granulocyte % 0.3 % 0-3.0 Normal (applies to non-n umeric results) [facility] ([facility] Nucleated Red Blood Cell % 0.0 % 0-0 Normal (applies to n on-numeric results) [facility] ([facility] Neutrophils # 6.6 10 1.5-8.5 Normal (applies to non-numeric re sults) [facility] ([facility] Ashe # 0.5 10 0.0-0.8 Normal (applies to non-numeric resul ts) [facility] ([facility] Lymph # 1.2 10 1.5-5.0 Below low normal [facility] ( [facility] Baso # 0.1 10 0.0-0.2 Normal (applies to non-numeric resul ts) [facility] ([facility] Eos # 0.9 10 0.0-0.5 Above high normal [facility] ([facility] ID Date Data Source [id number] 12/12/2019 10:47:00 AM EDT [facility] ([facility]) Name Value Range Interpretation Code Description Data Julianna rce(s) Supporting Document(s) Magnesium Level 2.01 [facility] ([facility]) ID Date Data Source [id number] 12/12/2019 10:47:00 AM EDT [facility] ([facility] Name Value Range Interpretation Code Description Data Julianna rce(s) Supporting Document(s) White Blood Count 6.3 4.3-10.9 [facility] ([facility] Red Blood Count 3.41 4.70-6.20 [facility] ([facility] Platelets 195 130-400 [facility] ([facility] Hematocrit 35.7 39.0-50.0 [facility] ([facility]) Hemoglobin 11.9 13.0-17.0 [facility] ([facility]) ID Date Data Source [id number] 12/12/2019 10:47:00 AM EDT [facility] ([facility] Name Value Range Interpretation Code Description Data Julianna rce(s) Supporting Document(s) Blood Urea Nitrogen 50.5 5-21 [facility] Glucose 121 70-100 [facility] [place] Creatinine 2.2 0.6-1.5 [facility] ([facility]) Glomerular filtration rate/1.73 sq M.pre dicted [Volume Rate/Area] in Serum or Plasma by Creatinine-based formula (MDRD) 29 [facility] ([facility]) Sodium 140 136-146 [facility] [place] Chloride 105.7 98-110 [facility] [place] Potassium 5.33 3.5-5.3 [facility] [place] Phosphorus 3.3 [facility] ([facility] Calcium 8.9 8.4-10.4 [facility] [place] Carbon Dioxide 26.9 20-32 [facility] Albumin 3.6 3.5-4.7 [facility] [place] Procedure Social History Code Duration Value Status Description Data Source(s ) Smoking 10/28/2020 12:00:00 AM EDT Patient is a former smoker completed Patient is a former smoker [facility] ([facility], ) Smoking 07/31/2020 12:00:00 AM EDT Former Smoker completed Former Smoker [email or web address] ([facility]) Smoking 07/24/2020 12:00:00 AM EDT Former Smoker completed Former Smoker [email or web address] ([facility]) Smoking 06/24/2020 12:00:00 AM EDT Patient is a former smoker completed Patient is a former smoker [facility] ([facility] Vital Signs ID Date Data Source UNK Name Value Range Interpretation Code Description Data Source(s) [place] body weight 166 [lb_av] 166 [lb_av] MEDEN T ([facility] Systolic blood pressure 122 mm[Hg] 122 mm[Hg] M EDENT ([facility] Diastolic blood pressure 60 mm[Hg] 60 mm[Hg] MEDENT ([facility] Body temperature 97.3 [degF] 97.3 [degF] MEDENT ([facility] Heart rate 64 /min 64 /min MEDENT ([facility] Respiratory rate 18 /min 18 /min MEDENT ( [facility] Body height 70 [in_i] 70 [in_i] MEDENT ([facility] 5'10" Body weight 183.00 [lb_av] 183.00 [lb_av] MEDEN T ([facility] Body mass index (BMI) [Ratio] 26.3 kg/m2 26.3 k g/m2 MEDENT ([facility] Oxygen saturation in Arterial blood by Pulse oximetry 100 % 100 % MEDENT ([facility] Systolic blood pressure 118 mm[Hg] 118 mm[Hg] M EDENT ([facility], ) Diastolic blood pressure 70 mm[Hg] 70 mm[Hg] MEDENT ([facility], ) Heart rate 74 /min 74 /min MEDENT ([facility], ) Oxygen saturation in Arterial blood by Pulse oximetry 95 % 95 % [facility] ([facility]) Room Air Body height 69 [in_i] 69 [in_i] MEDENT ([facility], ) 5'9" [place] body weight 160 [lb_av] 160 [lb_av] MEDEN T ([facility], ) Body height 70 [in_i] 70 [in_i] MEDENT ([facility] 5'10" Body mass index (BMI) [Ratio] 27.4 kg/m2 27.4 k g/m2 MEDENT ([facility] Oxygen saturation in Arterial blood by Pulse oximetry 99 % 99 % MEDENT ([facility] Body temperature 97.5 [degF] 97.5 [degF] MEDENT ([facility] Heart rate 90 /min 90 /min MEDENT ([facility] Systolic blood pressure 112 mm[Hg] 112 mm[Hg] M EDENT ([facility] Diastolic blood pressure 66 mm[Hg] 66 mm[Hg] MEDENT ([facility] Respiratory rate 18 /min 18 /min MEDENT ( [facility] Body weight 191.00 [lb_av] 191.00 [lb_av] MEDEN T ([facility] [place] body weight 166 [lb_av] 166 [lb_av] MEDEN T ([facility] Body weight 185 [lb_av] 185 [lb_av] eCW1 ([facility]) Body weight kg eCW1 ([facility]) Body height [in_i] eCW1 ([facility]) Body mass index (BMI) [Ratio] 26.54 kg/m2 26.54 kg/m2 eCW1 ([facility]) Heart rate 47 /min 47 /min eCW1 ([facility]) Respiratory rate 18 /min 18 /min eCW1 ([facility]) Body temperature 97 [degF] 97 [degF] eCW1 ([facility]) Systolic blood pressure 136 mm[Hg] 136 mm[Hg] e CW1 ([facility]) Diastolic blood pressure 77 mm[Hg] 77 mm[Hg] eCW1 ([facility]) Body weight 185 [lb_av] 185 [lb_av] eCW1 ([facility]) Systolic blood pressure 176 mm[Hg] 176 mm[Hg] e CW1 ([facility]) Diastolic blood pressure 86 mm[Hg] 86 mm[Hg] eCW1 ([facility]) Body height [in_i] eCW1 ([facility]) Body mass index (BMI) [Ratio] 26.54 kg/m2 26.54 kg/m2 eCW1 ([facility]) Heart rate 79 /min 79 /min eCW1 ([facility]) Respiratory rate 18 /min 18 /min eCW1 ([facility]) Body temperature 98.3 [degF] 98.3 [degF] eCW1 ( [facility]) Systolic blood pressure 134 mm[Hg] 134 mm[Hg] M EDENT ([facility] Respiratory rate 18 /min 18 /min MEDENT ( [facility] Diastolic blood pressure 84 mm[Hg] 84 mm[Hg] MEDENT ([facility] Body mass index (BMI) [Ratio] 25.5 kg/m2 25.5 k g/m2 MEDENT ([facility] Heart rate 54 /min 54 /min MEDENT ([facility] [place] body weight 166 [lb_av] 166 [lb_av] MEDEN T ([facility] Oxygen saturation in Arterial blood by Pulse oximetry 94 % 94 % MEDENT ([facility] Body temperature 96.9 [degF] 96.9 [degF] MEDENT ([facility] Body height 70 [in_i] 70 [in_i] MEDENT ([facility] 5'10" Body weight 178.00 [lb_av] 178.00 [lb_av] MEDEN T ([facility] Body temperature 97.3 [degF] 97.3 [degF] MEDENT ([facility] Heart rate 48 /min 48 /min MEDENT ([facility] Body height 70 [in_i] 70 [in_i] MEDENT ([facility] 5'10" [place] body weight 166 [lb_av] 166 [lb_av] MEDEN T ([facility] Body weight 179.00 [lb_av] 179.00 [lb_av] MEDEN T ([facility] Respiratory rate 16 /min 16 /min MEDENT ( [facility] Body mass index (BMI) [Ratio] 25.7 kg/m2 25.7 k g/m2 MEDENT ([facility] Oxygen saturation in Arterial blood by Pulse oximetry 93 % 93 % MEDENT ([facility] Systolic blood pressure 138 mm[Hg] 138 mm[Hg] M EDENT ([facility] Diastolic blood pressure 82 mm[Hg] 82 mm[Hg] MEDENT ([facility] Oxygen saturation in Arterial blood by Pulse oximetry 98 % 98 % [facility] ([facility]) Room Air Body temperature 97.3 [degF] 97.3 [degF] [facility] ([facility]) Body height 69 [in_i] 69 [in_i] [facility] ([facility]) 5'9" [place] body weight 160 [lb_av] 160 [lb_av] MEDEN T ([facility]) Systolic blood pressure 126 mm[Hg] 126 mm[Hg] M EDENT ([facility]) Diastolic blood pressure 76 mm[Hg] 76 mm[Hg] [facility] Heart rate 67 /min 67 /min [facility] ([facility]) Oxygen saturation in Arterial blood by Pulse oximetry 98 % 98 % [facility] ([facility]) Room Air Body temperature 97.3 [degF] 97.3 [degF] [facility] ([facility]) Body height 69 [in_i] 69 [in_i] [facility] ([facility]) 5'9" [place] body weight 160 [lb_av] 160 [lb_av] MEDEN T ([facility]) Diastolic blood pressure 84 mm[Hg] 84 mm[Hg] MEDENT ([facility] Body temperature 98.4 [degF] 98.4 [degF] MEDENT ([facility] Heart rate 52 /min 52 /min MEDENT ([facility] Respiratory rate 16 /min 16 /min MEDENT ( [facility] [place] body weight 166 [lb_av] 166 [lb_av] MEDEN T ([facility] Oxygen saturation in Arterial blood by Pulse oximetry 97 % 97 % MEDENT ([facility] Systolic blood pressure 134 mm[Hg] 134 mm[Hg] M EDENT ([facility] Body height 70 [in_i] 70 [in_i] [facility] 5'10" Body weight 187.00 [lb_av] 187.00 [lb_av] MEDEN T ([facility] Body mass index (BMI) [Ratio] 26.8 kg/m2 26.8 k g/m2 MEDENT ([facility] Heart rate 52 /min 52 /min MEDENT ([facility] Systolic blood pressure 118 mm[Hg] 118 mm[Hg] M EDENT ([facility] Diastolic blood pressure 70 mm[Hg] 70 mm[Hg] MEDENT ([facility] Body temperature 98.1 [degF] 98.1 [degF] MEDENT ([facility] Respiratory rate 18 /min 18 /min MEDENT ( [facility] Body height 70 [in_i] 70 [in_i] MEDENT ([facility] 5'10" Body weight 192.00 [lb_av] 192.00 [lb_av] MEDEN T ([facility] [place] body weight 166 [lb_av] 166 [lb_av] MEDEN T ([facility] Body mass index (BMI) [Ratio] 27.5 kg/m2 27.5 k g/m2 MEDENT ([facility] Oxygen saturation in Arterial blood by Pulse oximetry 97 % 97 % MEDENT ([facility] Respiratory rate 20 /min 20 /min MEDENT ( [facility] Diastolic blood pressure 60 mm[Hg] 60 mm[Hg] MEDENT ([facility] Systolic blood pressure 112 mm[Hg] 112 mm[Hg] M EDENT ([facility] Body temperature 97.2 [degF] 97.2 [degF] MEDENT ([facility] Heart rate 52 /min 52 /min MEDENT ([facility] Body height 70 [in_i] 70 [in_i] MEDENT ([facility] 5'10" Body weight 185.00 [lb_av] 185.00 [lb_av] MEDEN T ([facility] [place] body weight 166 [lb_av] 166 [lb_av] MEDEN T ([facility] Body mass index (BMI) [Ratio] 26.5 kg/m2 26.5 k g/m2 MEDENT ([facility] Oxygen saturation in Arterial blood by Pulse oximetry 95 % 95 % MEDENT ([facility] Body temperature 97.1 [degF] 97.1 [degF] MEDENT ([facility] Heart rate 84 /min 84 /min MEDENT ([facility] Respiratory rate 18 /min 18 /min MEDENT ( [facility] Body height 70 [in_i] 70 [in_i] MEDENT ([facility] 5'10" Body weight 178.00 [lb_av] 178.00 [lb_av] MEDEN T ([facility] [place] body weight 166 [lb_av] 166 [lb_av] MEDEN T ([facility] Body mass index (BMI) [Ratio] 25.5 kg/m2 25.5 k g/m2 MEDENT ([facility] Oxygen saturation in Arterial blood by Pulse oximetry 98 % 98 % MEDENT ([facility] Diastolic blood pressure 52 mm[Hg] 52 mm[Hg] MEDENT ([facility] Systolic blood pressure 98 mm[Hg] 98 mm[Hg] M EDJAK ([facility] Patient Treatment Plan of Care Planned Activity Planned Date Details Description Data Source (s) Betamethasone 0.5 MG/ML / Clotrimazole 10 MG/ML Topica l Cream 07/24/2020 12:00:00 AM EDT eCW1 ([facility])
[2021-01-24] MEDS ORDERED: SYMB16INH INH (16:59)
--- OUTSIDE RECORDS SUMMARY | 2021-01-24 17:47 | CCD ---
Author Author [facility] Organization [facility] Address Unknown Phone Unavailable Care Team Providers Care Optometric Assistant Name Role Phone Pritesh Acuna Sabrina PA Unavailable Unavailable Barraclough M Sabrina PA Unavailable Unavailable BarracloughPritesh Sabrina PA Unavailable Unavailable BarracloughPritesh Sabrina PA Unavailable Unavailable Barraclough M Sabrina PA Unavailable Unavailable Barraclough, M Sabrina PA Unavailable Unavailable BarracloughPritesh Sabrina [...] Fish, J Gurjit Unavailable Unavailable Fish, J Gurjti Unavailable Unavailable Fish, J Gurjit Unavailable Unavailable [...] ALFARO MD Unavailable Unavailable ANGELINA, H PIYUSH SAMUEL Unavailable [...] Fish, J Gurjit Unavailable Unavailable Fish, J Grujit Unavailable Unavailable Fish, J Gurjit Unavailable Unavailable [...] is protected by Article 27-F of the [facility] Public Health law. If you continue you may have access to information: Regarding HIV / AIDS; Provided by facilities licensed or operated by the [facility] Office of Mental Health; or Provided by the [facility] Office for People With Developmental Disabilities. If such information is present, then the following [facility] mandated warning applies: This information has been [...] law may result in a fine or fci sentence or both. A general authorization for the release of medical or other information is NOT sufficient authorization for further disc losure. Family History Family Member Name Family Member Gender Family Member Status Date o f Status Description Data Source(s) Unknown Unknown Problem [facility] ([facility]) Unknown Unknown Problem [facility] ([facility] brother, age 66 Unknown Male Problem MED[facility] ([facility]) Unknown Male Problem [facility] ([facility]) Encounters Encounter Providers Location Date Indications Data Source(s ) Outpatient Attender: Gurjit Fish [place] [facility] 01/01/2021 01:15:0 0 PM EDT [facility] ([facility] Outpatient Attender: Sergio Stringer/Coby/Herman/R eindben 10/28/2020 11:00:00 AM EDT MED[facility] ([facility] Outpatient Attender: Gurjit FishReferrer: Gurjit FishConsultant: Gurjit Fish 09/24/2020 05:54:00 PM EDT - 09/24/2020 06:04:00 PM EDT [facility] Outpatient Attender: Gurjit Fish [place] [facility] 09/24/2020 09:40:0 0 AM EDT MED[facility] ([facility] (WND SOWMYA) Stretcher Required Patients [address] [place] [address] 07/31/2020 12:00:00 AM EDT [facility] Outpatient [address] [facility] [address] 07/24/2020 12:00:00 AM EDT eCW1 ([facility]) Outpatient Attender: PIYUSH ALFARO MD [place] [facility] 01/2021 03:00:00 PM EDT [facility] ([facility] Outpatient Attender: Gurjit Ruiz [place] [facility] 06/24/2020 11:00:0 0 AM EDT MED[facility] ([facility] Outpatient Attender: Sergio Stringer/Coby/Herman/R david 04/29/2020 10:00:00 AM EST MED[facility] ([facility] Outpatient Attender: Sergio Stringer/Coby/Herman/R david 03/18/2020 09:00:00 AM EST MEDENT ([facility] 08:00:0 0 AM EST [facility] ([facility] 01:00:0 0 PM EST MED[facility] ([facility] Outpatient Attender: [facility] 12/20/2019 11:30:0 0 AM EDT MED[facility] ([facility] Outpatient Attender: Sabrina FARIAS [place] [facility] ce 2019 01:30:00 PM EDT MEDENT ([facility] Immunizations Vaccine Date Status Description Data Source(s) COVID-19 VACCINE Moderna 01/04/2021 12:00:00 AM EDT completed [facility]SIIS Vaccine Series Complete: YESThis Data wa s Submitted to [facility] Via [employer]. New in 2012. IIV4 01/01/2021 01:18:00 PM EDT completed MEDENT ([facility] COVID-19 VACCINE Moderna 04/21/2020 12:00:00 AM EST completed [facility] Vaccine Series Complete: YESThis Data wa s Submitted to [facility] Via [employer]. COVID-19 VACCINE, MRNA-1273, LNP-S (MODERNA)/PF 04/21/2020 1 2:00:00 AM EST completed [facility] COVID-19 VACCINE, MRNA-1273, LNP-S (MODERNA)/PF 03/23/2020 1 2:00:00 AM EST completed [facility] COVID-19 VACCINE Moderna 03/23/2020 12:00:00 AM EST completed [facility] Vaccine Series Complete: NOThis Data was Submitted to [facility] Via [employer]. Medications Medication Brand Name Start Date Product [...] {application} active Clotri mazole-Betamethasone 1-0.05 % eCW1 ([facility]) Betamethasone 0.5 MG/ML / Clotrimazole 10 [...] {application} active Clotri mazole-Betamethasone 1-0.05 % eCW1 ([facility]) Nystatin 533716 UNT/ML Topical Cream 100,000 unit/gram NYSTA TIN 07/18/2020 12:00:00 AM EDT cream 30 APPLY TO RASH ON SCROTUM THREE TIMES A DAY NEEDED APPLY TO RASH ON SCROTUM THREE TIMES A DAY NEEDED SOLD: 07/18/2020 [facility] Nystatin 503473 UNT/ML Topical Cream Nystatin 07/17/2020 12:00:00 AM EDT active MED[facility] ([facility] Nystatin 07/15/2020 12:00:00 AM EDT completed [facility] ([facility] carvedilol 12.5 MG Oral [...] Unspecified 04/21/2020 12:00:00 AM EST completed MED[facility] ([facility], ) Medication administered onsite Covid-19 vaccine, Unspecified 03/23/2020 12:00:00 AM EST completed MED[facility] ([facility], ) Medication administered onsite 10 mg [...] 12:00:00 AM EST RESPIRATORY active MEDENT ( [facility], ) Prednisone 10 MG Oral Tablet Prednisone 03/18/2020 12:00:00 AM EST ORAL completed MEDENT ([facility], ) 1-0.05 % 03/14/2020 12:00:00 AM [...] AM EDT ORAL active MEDENT ([facility] MARIO) 500 mg 2019 12:00:00 AM EDT tablet 19 TAKE ONE TABLET BY MOUTH TWICE A DAY TAKE ONE TABLET BY MOUTH TWICE A DAY SOLD: 12/03/2019 [facility] Prednisone 10 MG Oral Tablet Prednisone 11/08/2019 12:00:00 AM EDT ORAL completed MED[facility] ([facility] Spironolactone 25 MG Oral Tablet Spironolactone 07/20/2019 12:00:00 A M EDT ORAL completed [facility] ([facility] Insurance Providers Payer name Policy type / Coverage type Policy ID Covered republican ID Covered republican's relationship to cruz Policy Cruz Plan Information [facility] [id number] [facility] [id number] Medicare (Part B) Medicare Primary [id number] Self [id number] Medicare Medicare Primary [id number] Self Medicare Medicare Primary [id number] [id number] .3417.0 Self [id number] Medicare (Part B) Medicare Primary [id number] 2.16840.1.907328.3.227.99.572.7837.0 Self [id number] Medicare (Part B) Medicare Primary [id number] Self [id number] Medicare (Part B) Medicare Primary [id number] 2.16.840.1.464415.3.227.99.572.7837.0 Self [id number] Medicare (Part B) Medicare Primary [id number] 2.16840.1.323312.3.227.99.572.7837.0 Self [id number] Medicare (Part B) Medicare Primary [id number] 2.16.840.1.410536.3.227.99.572.7837.0 Self [id number] Medicare (Part B) Medicare Primary [id number] [id number] Self [id number] Medicare (Part B) Medicare Primary [id number] 2.16.840.1.689284.3.227.99.572.7837.0 Self [id number] Medicare (Part B) Medicare Primary [id number] 2.16.840.1.465439.3.227.99.572.7837.0 Self 13 [id number] Medicare Medicare Primary [id number] 2.16.840.1.322536.3.227.99.716 .3417.0 Self [id number] MEDICARE [id number] SP [id number] [place] Primary 2.16840.1.167903.3.227. [id number] Self Medicare (Part B) Medicare Primary [id number] Self Medicare (Part B) Medicare Primary [id number] 2.16.840.1.162007.3.227.99.572.7837.0 Self [id number] MEDICARE [id number] Blanca [id number] Medicare (Part B) Medicare Primary [id number] Self [id number] [employer] (pr) Medigap Part B 2.16840.1.403867.3.227.99 .991.54312.0 Family Dependent DME Jurisdiction A NHIC C [id number] SELF [id number] [employer] F [id number] SELF [id number] UMR [id number] Spo [id number] [employer] / UMR F [id number] SELF [id number] Medicare C [id number] SELF [id number] A Umr Commercial [id number] 01 2.16840.1.049646.3.227.99.7 16.3417.0 Family Dependent [id number] 01 Medicare Medicare Primary [id number] 2.16.840.1.047072.3.227 .99.716.3417.0 Self [id number] r Commercial [id number] 01 2.16.840.1.351290.3.227.99.7 16.3417.0 Family Dependent [id number] 01 Medicare Medicare Primary [id number] 2.16.840.1.882906.3.227 .99.716.3417.0 Self [id number] [facility] [id number] [facility] [id number] R PI PI MEDICARE PI PI [employer] PHCS Ppo Medigap Part B [id number] 2.16.840.1.568963.3.227.99.572.7837.0 Family Dependent [id number] [employer] Medigap Part B [id number] 2.16.840.1.477666.3.227.99 .572.7837.0 Family Dependent [id number] Ghi Medigap Part B [id number] 2.16.840.1.544724.3.227.99.572.7837 .0 Self [id number] Umr Medigap Part B [id number] 2.16.840.1.145119.3.227.99 .572.7837.0 Family Dependent [id number] [employer] PHCS Ppo Medigap Part B [id number] 7f0f 2.16.840.1.399981.3.227.99.572.7837.0 Family Dependent [id number] [employer] Medigap Part B [id number] 2.16.840.1.293673.3.227.99 .572.7837.0 Family Dependent [id number] Ghi Medigap Part B [id number] 2.0.1.416119.3.227.99.572.7837 .0 Self [id number] Umr Medigap Part B [id number] 2.0.1.879442.3.227.99 .572.7837.0 Family Dependent [id number] [employer] PHCS Ppo Medigap Part B [id number] 5af8 2.0.1.063921.3.227.99.572.7837.0 Family Dependent [id number]-[id number] [employer] Medigap Part B [id number] 2..1.924557.3.227.99 .572.7837.0 Family Dependent [id number] Ghi Medigap Part B [id number] 2..1.408123.3.227.99.572.7837 .0 Self 637772089 Umr Medigap Part B [id number] 2.0.1.402531.3.227.99 .572.7837.0 Family Dependent [id number] UMR -O/P [id number] 01 [id number] MEDICARE -O/P [id number] 18 [id number] MEDICARE [id number] SP [id number] A [employer] [id number] WI2 [id number] Umr Commercial [id number] 01 2.0.1.607327.3.227.99.7 16.3417.0 Family Dependent [id number] 01 Medicare Medicare Primary [id number] 2.0.1.879710.3.227 .99.716.3417.0 Self [id number] UMR O [id number] S [id number] MEDICARE C [id number] S [id number] A [employer] PHCS Ppo Medigap Part B [id number] 488d 2.16.840.1.632251.3.227.99.572.7837.0 Family Dependent [id number] [employer] Medigap Part B [id number] 2.16840.1.082476.3.227.99 .572.7837.0 Family Dependent [id number] [facility] [id number] WI2 [id number] r Medigap Part B [id number] 2.16840.1.884557.3.227.99 .572.7837.0 Family Dependent [id number] [employer] PHCS Ppo Medigap Part B [id number] 45a8 2.16840.1.563984.3.227.99.572.7837.0 Family Dependent [id number]-[id number] [employer] Medigap Part B [id number] 2.0.1.819653.3.227.99 .572.7837.0 Family Dependent 050785369 Ghi Medigap Part B [id number] 2.0.1.013048.3.227.99.572.7837 .0 Self 909810519 Umr Medigap Part B [id number] 2.0.1.401639.3.227.99 .572.7837.0 Family Dependent [id number] [employer] PPO O [id number] C [id number] [employer]-O/P [id number] 19 [id number] MEDICARE -O/P [id number] 18 [id number] Serg/Saw Lu.Al. [employer] Medigap Part B [id number] 2.16840.1.361534.3.227.99.716.3417.0 Family Dependent 89 6800639 [employer] PHCS Ppo Medigap Part B [id number] 3647 2.16840.1.952226.3.227.99.572.7837.0 Family Dependent [id number]-[id number] [employer] Medigap Part B [id number] 2.16.840.1.044012.3.227.99 .572.7837.0 Family Dependent 898346864 Ghi Medigap Part B [id number] 2.16.840.1.034586.3.227.99.572.7837 .0 Self 274598860 [employer] PHCS Ppo Medigap Part B [id number] 2b58 2.16.840.1.013660.3.227.99.572.7837.0 Family Dependent [id number]-[id number] [employer] Medigap Part B [id number] 2.16840.1.532004.3.227.99 .572.7837.0 Family Dependent 820525088 Ghi Medigap Part B [id number] 2.16840.1.467360.3.227.99.572.7837 .0 Self 186271486 [employer] Medigap Part B 98444 Family Dependent Ghi Medigap Part B 37027 Self [employer] Medigap Part B 59943 Family Dependent [employer] PPO O [id number] P [id number] [employer]-O/P [id number] 19 000838367 Ghi Medigap Part B [id number] 2.16840.1.305288.3.227.99.572.7837 .0 Self [id number] MEDICARE [id number] SP [id number] UMR -O/P [id number] 01 [id number] MEDICARE PART A -O/P [id number] 18 [id number] [facility] [id number] WI2 [id number] UMR O [id number] S [id number] MEDICARE C [id number] S [id number] V13 [employer] PHCS Ppo Medigap Part B [id number] 6673 MRN.[id number] Family Dependent [id number]-[id number] [employer] Medigap Part B [id number] MRN.[id number] Family Dependent 967069169 Ghi Medigap Part B [id number] MRN.[id number] Self [id number] Umr Medigap Part B [id number] MRN.[id number] Family Dependent [id number] [employer] PHCS Ppo Medigap Part B [id number] 6543 MRN.[id number] Family Dependent [id number] [employer] Medigap Part B [id number] MRN.[id number] Family Dependent [id number] Ghi Medigap Part B [id number] MRN.[id number] Self 722475350 r Medigap Part B [id number] MRN.[id number] Family Dependent [id number] Umr Commercial [id number] 01 2.16.840.1.775462.3.227.99.7 16.3417.0 Family Dependent [id number] 01 Medicare Medicare Primary [id number] 2.16.840.1.180630.3.227 .99.716.3417.0 Self [id number] [employer] PHCS Ppo Medigap Part B [id number] 7d28 MRN.[id number] Family Dependent [id number]-[id number] [employer] Medigap Part B [id number] MRN.[id number] [id number] Family Dependent 868485413 i Medigap Part B [id number] MRN.[id number] [id number] Self 358744946 [facility] Medigap Part B [id number] MRN.[id number] Family Dependent [id number] SELF PAY [facility] o Medigap Part B [id number] 414f MRN.[id number] Family Dependent [id number] [employer] Medigap Part B [id number] MRN.[id number] Family Dependent 526027207 i Medigap Part B [id number] MRN.[id number] [id number] Self [id number] [facility] Medigap Part B [id number] MRN.[id number] Family Dependent [id number] Problems, Conditions, and Diagnoses Code Display Name Description Problem Type Effective Dates Data Source(s) I501 Left ventricular failure, unspecified Le ft ventricular failure, unspecified Diagnosis 09/24/2020 05:54:00 PM EDT [facility] J449 Chronic obstructive pulmonary disease, u nspecified Chronic obstructive pulmonary disease, unspecified Diagnosis 09/24/2020 05:54:[address] [facility] R0602 Shortness of breath Shortness of breath Diagnosis 0 09/24/2020 05:54:00 PM EDT [facility] [id number] Biventricular congestive heart failure B iventricular congestive heart failure Problem 12/21/2019 12:00:00 AM EDT MEDENT ([facility] Surgeries/Procedures Procedure Description Date Indications Data Source(s) OFFICE OUTPATIENT VISIT 25 MINUTES 01/01/2021 12:00:00 AM EDT MED[facility] ([facility] OFFICE OUTPATIENT VISIT 25 MINUTES 10/28/2020 12:00:00 AM EDT MEDENT ([facility], ) OFFICE OUTPATIENT VISIT 25 MINUTES 09/24/2020 12:00:00 AM EDT MED[facility] ([facility] OFFICE OUTPATIENT VISIT 15 MINUTES 07/15/2020 12:00:00 AM EDT MED[facility] ([facility] OFFICE OUTPATIENT VISIT 25 MINUTES 06/24/2020 12:00:00 AM EDT MED[facility] ([facility] Measure Blood Oxygen Level Continuous Overnight Monitor 05/27/2020 12:00:00 AM EDT MED[facility] ([facility] DEMO&/EVAL OF PT UTILIZ AERSL GEN/NEB/INHLR/IPPB 04/29 12:00:00 AM EST MEDENT ([facility], ) Bronchospasm Evaluation 04/18/2020 12:00:00 AM EST MEDENT ([facility], ) Plethysmography Determination Lung Volumes & Per Airway Resi st 04/18/2020 12:00:00 AM EST MEDENT ([facility], ) DIFFUSING CAPACITY 04/18/2020 12:00:00 AM EST MEDENT ([facility], ) Results ID Date Data Source [id number] 01/01/2021 02:31:00 PM EDT MED[facility] ([facility] Name Value Range Interpretation Code Description Data Julianna rce(s) Supporting Document(s) Color Urine Laboratory test result Pritesh BERNARD ([facility] Appearance of Urine Laboratory test result MED[facility] ([facility] PH Urine 5.5 5.0-8.0 [facility] ([facility] Specific [place] 1.015 1.00-1.03 MED[facility] ([facility] Glucose Urine Laboratory test result MED[facility] ([facility] Ketones Laboratory test result [facility] ([facility] Bilirubin.total [Presence] in Urine by Test strip Laboratory test res ult MEDENT ([facility] Urobilinogen 0.2 EU/dl 0.2-1.0 MED[facility] ([facility] Blood Urine Laboratory test result M EDENT ([facility] Protein Urine Laboratory test result Above high normal MED[facility] ([facility] Nitrite Laboratory test result [facility] ([facility] Leukocytes Laboratory test result ME DENT ([facility] ID Date Data Source [id number] 01/01/2021 02:06:00 PM EDT MED[facility] ([facility] Name Value Range Interpretation Code Description Data Julianna rce(s) Supporting Document(s) Thyrotropin [Units/volume] in Serum or Plasma Laboratory test result [facility] ([facility] ID Date Data Source [id number] 01/01/2021 02:06:00 PM EDT MED[facility] ([facility] Name Value Range Interpretation Code Description Data Julianna rce(s) Supporting Document(s) Chol 122 mg/dL 0-200 [facility] ([facility] NORMAL RANGES Age WBC RBC [...] HCT IS 5% LESS SOURCE FOR DATA: [employer] 1800 OPERATION MANUAL( AUTOMATED BLOOD COUNTS AND [...] 2-19 YEARS EXCLUSIVE. Trig 113 mg/dL 35-200 [facility] NORMAL RANGES Age [...] HCT IS 5% LESS SOURCE FOR DATA: [employer] 1800 OPERATION MANUAL( AUTOMATED BLOOD COUNTS AND [...] HCT IS 5% LESS SOURCE FOR DATA: [facility] DYN 1800 OPERATION MANUAL( AUTOMATED BLOOD COUNTS [...] HCT IS 5% LESS SOURCE FOR DATA: [employer] 1800 OPERATION MANUAL( AUTOMATED BLOOD COUNTS AND [...] 2-19 YEARS EXCLUSIVE. Cho/HDL Ratio 3.4 CALC [facility] ([facility] NORMAL RANGES Age WBC RBC HGB [...] HCT IS 5% LESS SOURCE FOR DATA: [employer] 1800 OPERATION MANUAL( AUTOMATED BLOOD COUNTS AND [...] 2-19 YEARS EXCLUSIVE. ID Date Data Source [id number] 01/01/2021 02:06:00 PM EDT MED[facility] ([facility] Name Value Range Interpretation Code Description Data Julianna rce(s) Supporting Document(s) Glu 108 mg/dL 70-110 [facility] ([facility] NORMAL RANGES [...] HCT IS 5% LESS SOURCE FOR DATA: [employer] 1800 OPERATION MANUAL( AUTOMATED BLOOD COUNTS AND [...] 35 mg/dL 8-23 Above high normal MED[facility] ([facility] NORMAL RANGES Age [...] HCT IS 5% LESS SOURCE FOR DATA: [employer] 1800 OPERATION MANUAL( AUTOMATED BLOOD COUNTS AND [...] HCT IS 5% LESS SOURCE FOR DATA: [facility] DYN 1800 OPERATION MANUAL( AUTOMATED BLOOD COUNTS [...] 2-19 YEARS EXCLUSIVE. Na 139 mmol/L 136-[address] [facility] NORMAL RANGES Age WBC RBC [...] HCT IS 5% LESS SOURCE FOR DATA: [employer] 1800 OPERATION MANUAL( AUTOMATED BLOOD COUNTS AND [...] EXCLUSIVE. BUN/Creatinine Ratio 14.7 CALC [facility] ([facility] NORMAL RANGES Age WBC [...] HCT IS 5% LESS SOURCE FOR DATA: [employer] 1800 OPERATION MANUAL( AUTOMATED BLOOD COUNTS AND [...] 2-19 YEARS EXCLUSIVE. K 4.9 mmol/L 3.5-5.1 [facility] NORMAL RANGES Age WBC RBC [...] HCT IS 5% LESS SOURCE FOR DATA: [employer] 1800 OPERATION MANUAL( AUTOMATED BLOOD COUNTS AND [...] 2-19 YEARS EXCLUSIVE. CL 100.9 mmol/L 98.0-107.0 [facility] ([facility] NORMAL RANGES Age WBC [...] HCT IS 5% LESS SOURCE FOR DATA: [employer] 1800 OPERATION MANUAL( AUTOMATED BLOOD COUNTS AND [...] 2-19 YEARS EXCLUSIVE. Co2 27.2 mmol/L 22.0-29.0 [facility] ([facility] NORMAL RANGES Age WBC [...] HCT IS 5% LESS SOURCE FOR DATA: [employer] 1800 OPERATION MANUAL( AUTOMATED BLOOD COUNTS AND [...] HCT IS 5% LESS SOURCE FOR DATA: [facility] DYN 1800 OPERATION MANUAL( AUTOMATED BLOOD COUNTS [...] HCT IS 5% LESS SOURCE FOR DATA: [employer] 1800 OPERATION MANUAL( AUTOMATED BLOOD COUNTS AND [...] YEARS EXCLUSIVE. Alb 4.0 g/dL 3.5-5.2 [facility] NORMAL RANGES Age WBC [...] HCT IS 5% LESS SOURCE FOR DATA: [employer] 1800 OPERATION MANUAL( AUTOMATED BLOOD COUNTS AND [...] HCT IS 5% LESS SOURCE FOR DATA: [employer] 1800 OPERATION MANUAL( AUTOMATED BLOOD COUNTS AND [...] HCT IS 5% LESS SOURCE FOR DATA: [employer] 1800 OPERATION MANUAL( AUTOMATED BLOOD COUNTS AND [...] 2-19 YEARS EXCLUSIVE. Alp 128.6 U/L 40-[address] [facility] NORMAL RANGES Age WBC [...] HCT IS 5% LESS SOURCE FOR DATA: [employer] 1800 OPERATION MANUAL( AUTOMATED BLOOD COUNTS AND [...] YEARS EXCLUSIVE. Alt (SGPT) 19 U/L 0-41 [facility] ([facility] NORMAL RANGES Age WBC RBC [...] HCT IS 5% LESS SOURCE FOR DATA: [employer] 1800 OPERATION MANUAL( AUTOMATED BLOOD COUNTS AND [...] HCT IS 5% LESS SOURCE FOR DATA: [employer] 1800 OPERATION MANUAL( AUTOMATED BLOOD COUNTS AND [...] HCT IS 5% LESS SOURCE FOR DATA: [employer] 1800 OPERATION MANUAL( AUTOMATED BLOOD COUNTS AND [...] 2-19 YEARS EXCLUSIVE. Tbili 0.42 mg/dL 0.0-1.[address] [facility] ([facility] NORMAL RANGES [...] HCT IS 5% LESS SOURCE FOR DATA: [employer] 1800 OPERATION MANUAL( AUTOMATED BLOOD COUNTS AND [...] HCT IS 5% LESS SOURCE FOR DATA: [employer] 1800 OPERATION MANUAL( AUTOMATED BLOOD COUNTS AND [...] INDIVIDUALA AGED 2-19 YEARS EXCLUSIVE. eGFR Non-Afr. [place] 24 # [facility] ([facility] [...] HCT IS 5% LESS SOURCE FOR DATA: [employer] 1800 OPERATION MANUAL( AUTOMATED BLOOD COUNTS AND [...] HCT IS 5% LESS SOURCE FOR DATA: [employer] 1800 OPERATION MANUAL( AUTOMATED BLOOD COUNTS AND [...] 2-19 YEARS EXCLUSIVE. ID Date Data Source [id number] 01/01/2021 02:06:00 PM EDT [facility] ([facility] Name Value Range Interpretation Code Description Data Julianna rce(s) Supporting Document(s) Creatine kinase [Enzymatic activity/volume] in Serum or Plasma 3 6 U/L 39-308 Below low normal [facility] ([facility] ) NORMAL RANGES Age [...] HCT IS 5% LESS SOURCE FOR DATA: [employer] 1800 OPERATION MANUAL( AUTOMATED BLOOD COUNTS AND [...] 2-19 YEARS EXCLUSIVE. ID Date Data Source [id number] 01/01/2021 02:06:00 PM EDT [facility] ([facility] Name Value Range Interpretation Code Description Data Julianna rce(s) Supporting Document(s) WBC 5.9 10E3/uL 4.1-10.9 [facility] ([facility] NORMAL RANGES Age WBC [...] HCT IS 5% LESS SOURCE FOR DATA: [employer] 1800 OPERATION MANUAL( AUTOMATED BLOOD COUNTS AND [...] HCT IS 5% LESS SOURCE FOR DATA: [employer] 1800 OPERATION MANUAL( AUTOMATED BLOOD COUNTS AND [...] 2-19 YEARS EXCLUSIVE. HGB 13.3 g/dL 12.0-18.0 [facility] ([facility] NORMAL RANGES Age WBC [...] HCT IS 5% LESS SOURCE FOR DATA: [employer] 1800 OPERATION MANUAL( AUTOMATED BLOOD COUNTS AND [...] 2-19 YEARS EXCLUSIVE. HCT 40.0 % 37.0-51.[address] [facility] ([facility] NORMAL [...] HCT IS 5% LESS SOURCE FOR DATA: [employer] 1800 OPERATION MANUAL( AUTOMATED BLOOD COUNTS AND [...] HCT IS 5% LESS SOURCE FOR DATA: [employer] 1800 OPERATION MANUAL( AUTOMATED BLOOD COUNTS AND [...] 2-19 YEARS EXCLUSIVE. MCHC 33.3 g/dL 31.0-36.[address] [facility] ([facility] NORMAL [...] HCT IS 5% LESS SOURCE FOR DATA: [employer] 1800 OPERATION MANUAL( AUTOMATED BLOOD COUNTS AND [...] 2-19 YEARS EXCLUSIVE. PLT 141 10E3/uL 140-[address] [facility] ([facility] NORMAL RANGES Age WBC [...] HCT IS 5% LESS SOURCE FOR DATA: [employer] 1800 OPERATION MANUAL( AUTOMATED BLOOD COUNTS AND [...] 2-19 YEARS EXCLUSIVE. Neut% 67.0 % 37.0-92.[address] [facility] ([facility] NORMAL [...] HCT IS 5% LESS SOURCE FOR DATA: [facility] DYN 1800 OPERATION MANUAL( AUTOMATED BLOOD COUNTS [...] RDW-CV 17.6 % 11.5-14.5 Above high normal [facility] (Family [...] HCT IS 5% LESS SOURCE FOR DATA: [employer] 1800 OPERATION MANUAL( AUTOMATED BLOOD COUNTS AND [...] 2-19 YEARS EXCLUSIVE. Lym% 15.4 % 10.0-58.5 [facility] NORMAL RANGES Age WBC [...] HCT IS 5% LESS SOURCE FOR DATA: [employer] 1800 OPERATION MANUAL( AUTOMATED BLOOD COUNTS AND [...] 2-19 YEARS EXCLUSIVE. Lym# 0.9 10E3/uL 0.6-4.1 [facility] ([facility] [employer] [facility] NORMAL RANGES Age WBC RBC HGB [...] HCT IS 5% LESS SOURCE FOR DATA: [employer] 1800 OPERATION MANUAL( AUTOMATED BLOOD COUNTS AND [...] 2-19 YEARS EXCLUSIVE. MXD% 17.6 % 0.1-24.0 [facility] ([facility] NORMAL RANGES [...] HCT IS 5% LESS SOURCE FOR DATA: [employer] 1800 OPERATION MANUAL( AUTOMATED BLOOD COUNTS AND [...] 2-19 YEARS EXCLUSIVE. Neut# 4.0 % 2.0-7.8 [facility] ([facility] NORMAL RANGES [...] HCT IS 5% LESS SOURCE FOR DATA: [employer] 1800 OPERATION MANUAL( AUTOMATED BLOOD COUNTS AND [...] 2-19 YEARS EXCLUSIVE. MXD# 1.0 10E3/uL 0.0-1.8 [facility] ([facility] NORMAL RANGES Age WBC [...] HCT IS 5% LESS SOURCE FOR DATA: [facility] DYN 1800 OPERATION MANUAL( AUTOMATED BLOOD COUNTS [...] HCT IS 5% LESS SOURCE FOR DATA: [employer] 1800 OPERATION MANUAL( AUTOMATED BLOOD COUNTS AND [...] 2-19 YEARS EXCLUSIVE. ID Date Data Source [id number] 09/24/2020 10:23:00 AM EDT [facility] ([facility] Name Value Range Interpretation Code Description Data Julianna rce(s) Supporting Document(s) Alb 150 mg/L [facility] ([facility] Creatinine, Urine 50 mg/dL 10-300 [facility] ([facility] A/C Ratio Laboratory test result Abnormal (applies to non -numeric results) [facility] ([facility] ID Date Data Source [id number] 09/24/2020 10:23:00 AM EDT [facility] ([facility] Name Value Range Interpretation Code Description Data Julianna rce(s) Supporting Document(s) Natriuretic peptide.B prohormone N-Terminal [Mass/volu me] in Serum or Plasma 4171 pg/mL 0-450 Above high normal [facility] ([facility] ID Date Data Source [id number] 09/24/2020 10:23:00 AM EDT [facility] ([facility]) Name Value Range Interpretation Code Description Data Julianna rce(s) Supporting Document(s) Natriuretic peptide.B prohormone N-Terminal [Mass/volu me] in Serum or Plasma 4171 [facility] ([employer] [facility]) ID Date Data Source [id number] 09/24/2020 10:23:00 AM EDT [facility] (Cardi [facility]y [facility]) Name Value Range Interpretation Code Description Data Julianna rce(s) Supporting Document(s) Triglycerides 118 [facility] ([facility]) Cholesterol 124 [facility] ([facility]) Chol/HDL Ratio 3.5 [facility] (Cardiol ogy Associates [facility]) HDL 36 [facility] (Cardiology A [facility]ociates [facility]) Cholesterol in LDL [Mass/volume] in Serum or Plasma by calculation 64 [facility] ([facility]) ID Date Data Source [id number] 09/24/2020 10:23:00 AM EDT [facility] ([facility]) Name Value Range Interpretation Code Description Data Julianna rce(s) Supporting Document(s) Albumin [Mass/volume] in Serum or Plasma 4.0 [facility] ([facility]) Alanine aminotransferase [Enzymatic activity/volume] in Serum or Pl asma 21 [facility] ([facility]) Calcium [Mass/volume] in Serum or Plasma 9.1 [facility] ([facility]) Carbon dioxide, total [Moles/volume] in Serum or Plasma 23.0 [facility] ([facility]) Alkaline phosphatase [Enzymatic activity/volume] in Serum or Plasma 120.8 [facility] ([facility]) Chloride [Moles/volume] in Serum or Plasma 102.8 [facility] ([facility]) Potassium [Moles/volume] in Serum or Plasma 4.1 [facility] ([facility]) Sodium 139 [facility] ([facility]) Protein [Mass/volume] in Serum or Plasma 6.1 [facility] ([facility]) Aspartate aminotransferase [Enzymatic activity/volume] in Serum or Plasma 15 [facility] ([facility]) Urea nitrogen [Mass/volume] in Serum or Plasma 37 [facility] ([facility]) Glucose 113 83-110 [facility] ([facility]) Creatinine For GFR 2.9 [facility] (Car [facility]ology [facility]) ID Date Data Source [id number] 09/24/2020 10:23:00 AM EDT [facility] ([facility]) Name Value Range Interpretation Code Description Data Julianna rce(s) Supporting Document(s) White Blood Count 7.6 5.0-10.0 [facility] (Card [facility]) Platelets 163 172-450 [facility] ([facility]) Hemoglobin 13.0 [facility] ([facility]) Red Blood Count 3.85 4.00-5.40 [facility] ([facility]io [facility]y [facility]) Hematocrit 38.7 [facility] ([facility]) ID Date Data Source [id number] 09/24/2020 08:11:00 PM EDT [facility] Name Value Range Interpretation Code Description Data Julianna rce(s) Supporting Document(s) BNP 4171 PG/ML 0 - 450 H [facility] ID Date Data Source [id number] 09/24/2020 10:22:00 AM EDT [facility] ([facility] [employer] [facility] Name Value Range Interpretation Code Description Data Julianna rce(s) Supporting Document(s) Thyroxine (T4) free [Mass/volume] in Serum or Plasma 1.66 ng/dL 0.75-1.54 Above high normal [facility] ([facility] ) Thyrotropin [Units/volume] in Serum or Plasma 2.284 ulU/mL 0.60-4.8 [facility] ([facility] ID Date Data Source [id number] 09/24/2020 10:21:00 AM EDT [facility] ([facility] Name Value Range Interpretation Code Description Data Julianna rce(s) Supporting Document(s) WBC 7.6 10E3/uL 4.1-10.9 [facility] ([facility] NORMAL RANGES Age WBC [...] HCT IS 5% LESS SOURCE FOR DATA: [employer] 1800 OPERATION MANUAL( AUTOMATED BLOOD COUNTS AND [...] HCT IS 5% LESS SOURCE FOR DATA: [employer] 1800 OPERATION MANUAL( AUTOMATED BLOOD COUNTS AND [...] 2-19 YEARS EXCLUSIVE. HGB 13.0 g/dL 12.0-18.0 [facility] ([facility] NORMAL RANGES Age WBC [...] HCT IS 5% LESS SOURCE FOR DATA: [employer] 1800 OPERATION MANUAL( AUTOMATED BLOOD COUNTS AND [...] MCV 100.5 fL 80.0-97.0 Above high normal [facility] (Family [...] HCT IS 5% LESS SOURCE FOR DATA: [employer] 1800 OPERATION MANUAL( AUTOMATED BLOOD COUNTS AND [...] HCT IS 5% LESS SOURCE FOR DATA: [employer] 1800 OPERATION MANUAL( AUTOMATED BLOOD COUNTS AND [...] MCH 33.8 pg 26.0-32.0 Above high normal [facility] (Family [...] 2-19 YEARS EXCLUSIVE. PLT 163 10E3/uL 140-[address] [facility] ([facility] NORMAL RANGES Age WBC [...] HCT IS 5% LESS SOURCE FOR DATA: [employer] 1800 OPERATION MANUAL( AUTOMATED BLOOD COUNTS AND [...] HCT IS 5% LESS SOURCE FOR DATA: [employer] 1800 OPERATION MANUAL( AUTOMATED BLOOD COUNTS AND [...] 2-19 YEARS EXCLUSIVE. Lym% 17.2 % 10.0-58.[address] [facility] ([facility] NORMAL [...] HCT IS 5% LESS SOURCE FOR DATA: [employer] 1800 OPERATION MANUAL( AUTOMATED BLOOD COUNTS AND [...] RDW-CV 17.5 % 11.5-14.5 Above high normal [facility] ([facility] NORMAL RANGES [...] HCT IS 5% LESS SOURCE FOR DATA: [employer] 1800 OPERATION MANUAL( AUTOMATED BLOOD COUNTS AND [...] 2-19 YEARS EXCLUSIVE. Neut% 71.1 % 37.0-92.[address] [facility] ([facility] NORMAL [...] HCT IS 5% LESS SOURCE FOR DATA: [employer] 1800 OPERATION MANUAL( AUTOMATED BLOOD COUNTS AND [...] 2-19 YEARS EXCLUSIVE. Lym# 1.3 10E3/uL 0.6-4.1 [facility] ([facility] [employer] NORMAL RANGES Age WBC RBC HGB [...] HCT IS 5% LESS SOURCE FOR DATA: [facility] DYN 1800 OPERATION MANUAL( AUTOMATED BLOOD COUNTS [...] 2-19 YEARS EXCLUSIVE. MXD% 11.7 % 0.1-24.0 [facility] ([facility] NORMAL RANGES [...] HCT IS 5% LESS SOURCE FOR DATA: [employer] 1800 OPERATION MANUAL( AUTOMATED BLOOD COUNTS AND [...] YEARS EXCLUSIVE. Neut# 5.4 % 2.0-7.8 [facility] ([facility] NORMAL RANGES [...] HCT IS 5% LESS SOURCE FOR DATA: [employer] 1800 OPERATION MANUAL( AUTOMATED BLOOD COUNTS AND [...] 2-19 YEARS EXCLUSIVE. MXD# 0.9 10E3/uL 0.0-1.8 [facility] ([facility] NORMAL RANGES Age WBC [...] HCT IS 5% LESS SOURCE FOR DATA: [facility] DYN 1800 OPERATION MANUAL( AUTOMATED BLOOD COUNTS [...] HCT IS 5% LESS SOURCE FOR DATA: [employer] 1800 OPERATION MANUAL( AUTOMATED BLOOD COUNTS AND [...] 2-19 YEARS EXCLUSIVE. ID Date Data Source [id number] 09/24/2020 10:21:00 AM EDT [facility] ([facility] Name Value Range Interpretation Code Description Data Julianna rce(s) Supporting Document(s) Chol 124 mg/dL 0-200 [facility] ([facility] NORMAL RANGES [...] HCT IS 5% LESS SOURCE FOR DATA: [facility] DYN 1800 OPERATION MANUAL( AUTOMATED BLOOD COUNTS [...] 2-19 YEARS EXCLUSIVE. Trig 118 mg/dL 35-[address] [facility] ([facility] NORMAL [...] HCT IS 5% LESS SOURCE FOR DATA: [employer] 1800 OPERATION MANUAL( AUTOMATED BLOOD COUNTS AND [...] HCT IS 5% LESS SOURCE FOR DATA: [employer] 1800 OPERATION MANUAL( AUTOMATED BLOOD COUNTS AND [...] 2-19 YEARS EXCLUSIVE. Cho/HDL Ratio 3.5 CALC [employer] ([facility] NORMAL RANGES Age WBC RBC HGB [...] HCT IS 5% LESS SOURCE FOR DATA: [facility] DYN 1800 OPERATION MANUAL( AUTOMATED BLOOD COUNTS [...] LDL_C 64 Calc 75-129 Below low normal [facility] ( [facility] NORMAL RANGES [...] HCT IS 5% LESS SOURCE FOR DATA: [employer] 1800 OPERATION MANUAL( AUTOMATED BLOOD COUNTS AND [...] 2-19 YEARS EXCLUSIVE. ID Date Data Source [id number] 09/24/2020 10:21:00 AM EDT [facility] ([facility] Name Value Range Interpretation Code Description Data Julianna rce(s) Supporting Document(s) Creatine kinase [Enzymatic activity/volume] in Serum or Plasma 50 U /L 39-[address] [facility] NORMAL RANGES Age WBC RBC HGB [...] HCT IS 5% LESS SOURCE FOR DATA: [employer] 1800 OPERATION MANUAL( AUTOMATED BLOOD COUNTS AND [...] 2-19 YEARS EXCLUSIVE. ID Date Data Source [id number] 09/24/2020 10:21:00 AM EDT [facility] ([facility] Name Value Range Interpretation Code Description Data Julianna rce(s) Supporting Document(s) Color Laboratory test result [facility] ([facility] NORMAL RANGES Age [...] HCT IS 5% LESS SOURCE FOR DATA: [employer] 1800 OPERATION MANUAL( AUTOMATED BLOOD COUNTS AND [...] HCT IS 5% LESS SOURCE FOR DATA: [employer] 1800 OPERATION MANUAL( AUTOMATED BLOOD COUNTS AND [...] 2-19 YEARS EXCLUSIVE. Clarity Laboratory test result [facility] ([facility] NORMAL RANGES Age [...] HCT IS 5% LESS SOURCE FOR DATA: [employer] 1800 OPERATION MANUAL( AUTOMATED BLOOD COUNTS AND [...] 2-19 YEARS EXCLUSIVE. Bilirubin,Urine Laboratory test result [facility] ([facility] [...] HCT IS 5% LESS SOURCE FOR DATA: [employer] 1800 OPERATION MANUAL( AUTOMATED BLOOD COUNTS AND [...] HCT IS 5% LESS SOURCE FOR DATA: [employer] 1800 OPERATION MANUAL( AUTOMATED BLOOD COUNTS AND [...] 2-19 YEARS EXCLUSIVE. pH 5.0 # 5.0-8.0 [facility] ([facility] NORMAL [...] HCT IS 5% LESS SOURCE FOR DATA: [employer] 1800 OPERATION MANUAL( AUTOMATED BLOOD COUNTS AND [...] HCT IS 5% LESS SOURCE FOR DATA: [employer] 1800 OPERATION MANUAL( AUTOMATED BLOOD COUNTS AND [...] HCT IS 5% LESS SOURCE FOR DATA: [employer] 1800 OPERATION MANUAL( AUTOMATED BLOOD COUNTS AND [...] 2-19 YEARS EXCLUSIVE. Urobilinogen 0.2 NA 0.2-1.0 [facility] NORMAL RANGES Age WBC RBC [...] HCT IS 5% LESS SOURCE FOR DATA: [facility] DYN 1800 OPERATION MANUAL( AUTOMATED BLOOD COUNTS [...] HCT IS 5% LESS SOURCE FOR DATA: [employer] 1800 OPERATION MANUAL( AUTOMATED BLOOD COUNTS AND [...] HCT IS 5% LESS SOURCE FOR DATA: [employer] 1800 OPERATION MANUAL( AUTOMATED BLOOD COUNTS AND [...] Epithelial Cells - Ua Laboratory test result [facility] ([facility] NORMAL RANGES [...] HCT IS 5% LESS SOURCE FOR DATA: [employer] 1800 OPERATION MANUAL( AUTOMATED BLOOD COUNTS AND [...] test result Abnormal (applies to non-numeric results) [facility] ([facility] ) NORMAL RANGES Age [...] HCT IS 5% LESS SOURCE FOR DATA: [employer] 1800 OPERATION MANUAL( AUTOMATED BLOOD COUNTS AND [...] HCT IS 5% LESS SOURCE FOR DATA: [facility] DYN 1800 OPERATION MANUAL( AUTOMATED BLOOD COUNTS [...] ADOLESCENTS REPRESENTS INDIVIDUALA AGED 2-19 YEARS EXCLUSIVE. [facility] Laboratory test result [facility] ([facility] NORMAL RANGES [...] HCT IS 5% LESS SOURCE FOR DATA: [employer] 1800 OPERATION MANUAL( AUTOMATED BLOOD COUNTS AND [...] 2-19 YEARS EXCLUSIVE. ID Date Data Source [id number] 09/24/2020 10:21:00 AM EDT [facility] ([facility] Name Value Range Interpretation Code Description Data Julianna rce(s) Supporting Document(s) Glu 113 mg/dL 70-110 Above high normal [facility] ([facility] NORMAL RANGES Age WBC [...] HCT IS 5% LESS SOURCE FOR DATA: [employer] 1800 OPERATION MANUAL( AUTOMATED BLOOD COUNTS AND [...] BUN 37 mg/dL 8-23 Above high normal [facility] ([facility] NORMAL RANGES Age [...] HCT IS 5% LESS SOURCE FOR DATA: [facility] DYN 1800 OPERATION MANUAL( AUTOMATED BLOOD COUNTS [...] HCT IS 5% LESS SOURCE FOR DATA: [employer] 1800 OPERATION MANUAL( AUTOMATED BLOOD COUNTS AND [...] 2-19 YEARS EXCLUSIVE. BUN/Creatinine Ratio 12.6 CALC [facility] ([facility] NORMAL RANGES Age WBC RBC [...] HCT IS 5% LESS SOURCE FOR DATA: [employer] 1800 OPERATION MANUAL( AUTOMATED BLOOD COUNTS AND [...] 2-19 YEARS EXCLUSIVE. Na 139 mmol/L 136-[address] [facility] ([facility] NORMAL RANGES [...] HCT IS 5% LESS SOURCE FOR DATA: [employer] 1800 OPERATION MANUAL( AUTOMATED BLOOD COUNTS AND [...] HCT IS 5% LESS SOURCE FOR DATA: [employer] 1800 OPERATION MANUAL( AUTOMATED BLOOD COUNTS AND [...] 2-19 YEARS EXCLUSIVE. CL 102.8 mmol/L 98.0-107.0 [facility] ([facility] NORMAL RANGES Age WBC RBC HGB [...] 2-19 YEARS EXCLUSIVE. Co2 23.0 mmol/L 22.0-29.[address] [facility] ([facility] NORMAL RANGES Age WBC [...] HCT IS 5% LESS SOURCE FOR DATA: [employer] 1800 OPERATION MANUAL( AUTOMATED BLOOD COUNTS AND [...] HCT IS 5% LESS SOURCE FOR DATA: [employer] 1800 OPERATION MANUAL( AUTOMATED BLOOD COUNTS AND [...] 2-19 YEARS EXCLUSIVE. CA 9.1 mg/dL 8.6-10.[address] [facility] ([facility] NORMAL [...] HCT IS 5% LESS SOURCE FOR DATA: [employer] 1800 OPERATION MANUAL( AUTOMATED BLOOD COUNTS AND [...] 2-19 YEARS EXCLUSIVE. Alb 4.0 g/dL 3.5-5.2 [facility] ([facility] NORMAL [...] HCT IS 5% LESS SOURCE FOR DATA: [employer] 1800 OPERATION MANUAL( AUTOMATED BLOOD COUNTS AND [...] EXCLUSIVE. Globulin 2.1 CALC [facility] ([facility] NORMAL RANGES Age WBC [...] HCT IS 5% LESS SOURCE FOR DATA: [facility] DYN 1800 OPERATION MANUAL( AUTOMATED BLOOD COUNTS [...] 2-19 YEARS EXCLUSIVE. A/G Ratio 1.[address] [facility] ([facility] NORMAL [...] HCT IS 5% LESS SOURCE FOR DATA: [employer] 1800 OPERATION MANUAL( AUTOMATED BLOOD COUNTS AND [...] YEARS EXCLUSIVE. Alt (SGPT) 21 U/L 0-[address] [facility] ([facility] NORMAL RANGES Age [...] HCT IS 5% LESS SOURCE FOR DATA: [employer] 1800 OPERATION MANUAL( AUTOMATED BLOOD COUNTS AND [...] 2-19 YEARS EXCLUSIVE. Alp 120.8 U/L 40-129 [facility] ([facility] NORMAL RANGES [...] HCT IS 5% LESS SOURCE FOR DATA: [employer] 1800 OPERATION MANUAL( AUTOMATED BLOOD COUNTS AND [...] YEARS EXCLUSIVE. Ast (Sgot) 15 U/L 0-[address] [facility] NORMAL RANGES Age WBC RBC [...] HCT IS 5% LESS SOURCE FOR DATA: [employer] 1800 OPERATION MANUAL( AUTOMATED BLOOD COUNTS AND [...] HCT IS 5% LESS SOURCE FOR DATA: [employer] 1800 OPERATION MANUAL( AUTOMATED BLOOD COUNTS AND [...] 2-19 YEARS EXCLUSIVE. Tbili 0.49 mg/dL 0.0-1.[address] [facility] ([facility] NORMAL RANGES Age WBC RBC HGB [...] HCT IS 5% LESS SOURCE FOR DATA: [employer] 1800 OPERATION MANUAL( AUTOMATED BLOOD COUNTS AND [...] HCT IS 5% LESS SOURCE FOR DATA: [facility] DYN 1800 OPERATION MANUAL( AUTOMATED BLOOD COUNTS [...] INDIVIDUALA AGED 2-19 YEARS EXCLUSIVE. eGFR Non-Afr. [place] 19 # [facility] ([facility] CKD-EPI ID Date Data Source [id number] 07/21/2020 12:45:00 PM EDT RG ([facility] Name Value Range Interpretation Code Description Data Julianna rce(s) Supporting Document(s) Bacteria identified in Blood by Culture Laboratory test result [facility] ([facility] No growth after 72 hours . All specimens observed for 5 days. Results final at that time. No growth after 48 hours . All specimens observed for 5 days. Results final at that time. No growth after 24 hours . All specimens observed for 5 days. Results final at that time. NO GROWTH AFTER 5 DAYS ID Date Data Source [id number] 07/21/2020 12:45:00 PM EDT [facility] ([facility] Name Value Range Interpretation Code Description Data Julianna rce(s) Supporting Document(s) Gram Stain Laboratory test result Normal (applies to non-n umeric results) [facility] ([facility] MANY WBCS MODERATE GRAM POSITIVE COCCI IN PAIRS AND CLUSTERS Wound Culture Laboratory test result Normal (applies t o non-numeric results) [facility] ([facility] <content>FULL REPORT IN LAB [...] CSLI standards.</content>
<content></content> ID Date Data Source [id number] 07/21/2020 12:37:00 PM EDT [facility] ([facility] Name Value Range Interpretation Code Description Data Julianna rce(s) Supporting Document(s) Erythrocyte sedimentation rate by Westergren method 56 mm/hr 0-20 Above high normal [facility] ([facility] ) ID Date Data Source [id number] 07/21/2020 12:37:00 PM EDT [facility] ([facility] Name Value Range Interpretation Code Description Data Julianna rce(s) Supporting Document(s) White Blood Count 8.1 10 4.0-10.0 Normal (applies to non-numeri c results) [facility] ([facility] Hematocrit 38.3 % 42.0-52.0 Below low normal [facility] ( [facility] Red Blood Count 3.75 10 4.30-6.10 Below low normal [facility] ([facility] Hemoglobin 12.4 g/dL 13.5-17.5 Below low normal [facility] ( [facility] Mean Corpuscular Hemoglobin 33.1 pg 27.0-33.0 Above high normal [facility] ([facility] Mean Corpuscular Volume 102.1 fl 80.0-96.0 Above high normal [facility] ([facility] Red Cell Distribution Width 15.1 % 11.5-14.5 Above high normal [facility] ([facility] Mean Corpuscular HGB Conc 32.4 g/dL 32.0-36.5 Normal (applies to non-numeric results) [facility] ([facility] ) Platelet Count, Automated 153 10 150-450 Normal (applies to non-numeric results) [facility] ([facility] [facility] ) Lymph % 15.7 % 24.0-44.0 Below low normal [facility] ( [facility] Neutrophils % 68.8 % 36.0-66.0 Above high normal MEDE NT ([facility] Eos % 5.8 % 0.0-3.0 Above high normal [facility] ([facility] [place] % 8.8 % 2.0-8.0 Above high normal [facility] ([facility] Immature Granulocyte % 0.4 % 0-3.0 Normal (applies to non-n umeric results) [facility] ([facility] Baso % 0.5 % 0.0-1.0 Normal (applies to non-numeric resul ts) [facility] ([facility] Nucleated Red Blood Cell % 0.0 % 0-0 Normal (applies to n on-numeric results) [facility] ([facility] Neutrophils # 5.6 10 1.5-8.5 Normal (applies to non-numeric re sults) [facility] ([facility] Lymph # 1.3 10 1.5-5.0 Below low normal [facility] ( [facility] [place] # 0.7 10 0.0-0.8 Normal (applies to non-numeric resul ts) [facility] ([facility] Eos # 0.5 10 0.0-0.5 Normal (applies to non-numeric resul ts) [facility] ([facility] Baso # 0.0 10 0.0-0.2 Normal (applies to non-numeric resul ts) [facility] ([facility] ID Date Data Source [id number] 07/21/2020 12:37:00 PM EDT [facility] Name Value Range Interpretation Code Description Data Julianna rce(s) Supporting Document(s) Lactate [Mass/volume] in Serum or Plasma 1.4 mmol/L 0.4-2.0 Normal (applies to non-numeric results) [facility] ([facility]) Y/N query for Sepsis Lactate Rule: Y C reactive protein [Mass/volume] in Serum or Plasma by High sensitivity method 3.67 mg/dL 0.00-0.30 Above high normal [facility] ([facility] ID Date Data Source [id number] 07/21/2020 12:37:00 PM EDT [facility] ([facility] Name Value Range Interpretation Code Description Data Julianna rce(s) Supporting Document(s) Glucose, Fasting 137 mg/dL 70-100 Above high normal M EDENT ([facility] Blood Urea Nitrogen 41 mg/dL 7-18 Above high normal [facility] ([facility] Creatinine For GFR 2.44 mg/dL 0.70-1.30 Above high normal [facility] ([facility] Glomerular Filtration Rate 27.1 Below low normal [facility] ([facility] <content>Units are mL/min/1.73 m2</content>
<content></content>
<content>Chronic Kidney Disease Staging per NKF:</content>
<content></content>
<content>Stage I & II GFR >=60 Normal to Mildly Decreased</content>
<content>Stage III GFR 30- 59 Moderately Decreased</content>
<content>Stage IV GFR 15-29 Severely Decreased</content>
<content>Stage V GFR <15 Very Little GFR Left</content>
<content>ESRD GFR <15 on ZIPPER JOINER</content>
<content></content> Sodium Level 142 meq/L 136-145 Normal (applies to non-numeric res ults) [facility] ([facility] Chloride Level 108 meq/L 98-107 Above high normal MED ENT ([facility] Potassium Serum 4.0 meq/L 3.5-5.1 Normal (applies to non-numeric results) [facility] Carbon Dioxide Level 29 meq/L 21-32 Normal (applies to non-num stephen results) [facility] ([facility] Anion Gap 5 meq/L 8-16 Below low normal [facility] ( [facility] Calcium Level 9.2 mg/dL 8.8-10.2 Normal (applies to non-numeric re sults) [facility] ([facility] ID Date Data Source [id number] 06/16/2020 08:59:00 AM EDT [facility] ([facility] Name Value Range Interpretation Code Description Data Julianna rce(s) Supporting Document(s) Magnesium Level 2.02 [facility] (Cardio logy [facility]) ID Date Data Source [id number] 06/16/2020 08:59:00 AM EDT [facility] (Cardi ogy [facility]) Name Value Range Interpretation Code Description Data Julianna rce(s) Supporting Document(s) White Blood Count 7.7 4.3-10.9 [facility] (Card iology [facility]) Red Blood Count 3.98 4.70-6.20 [facility] (Cardio logy Associates [facility]) Platelets 203 130-400 [facility] Hematocrit 40.2 39.0-50.0 [facility] ([facility]) Hemoglobin 13.1 13.0-17.0 [facility] ([facility]) ID Date Data Source [id number] 06/16/2020 08:59:00 AM EDT [facility] ([facility]) Name Value Range Interpretation Code Description Data Julianna rce(s) Supporting Document(s) Glucose 179 70-100 [facility] ([facility]) Creatinine 2.2 0.6-1.5 [facility] ([facility]) Blood Urea Nitrogen 40.1 5-21 [facility] ([facility]) Sodium 135.7 136-146 [facility] ([facility]) Glomerular filtration rate/1.73 sq M.pre dicted [Volume Rate/Area] in Serum or Plasma by Creatinine-based formula (MDRD) 29 [facility] ([facility]) Potassium 4.71 3.5-5.3 [facility] ([facility]) Carbon Dioxide 26.3 20-32 [facility] ([facility]) Chloride 102.4 98-110 [facility] ([facility]) Calcium 9.2 8.4-10.4 [facility] ([facility]) Phosphorus 3.2 [facility] ([facility]) Albumin 4.0 3.5-4.7 [facility] ([facility]) ID Date Data Source [id number] 03/13/2020 12:00:00 AM EST [facility] Gurjit Fish DO Patient Name: MARIA VICTORIA MACIAS [facility] Date of : [address] [address] Date of Exam: 03/13/2020#: Fax: [phone] EXAM: [...] rce(s) Supporting Document(s) ID Date Data Source [id number] 03/13/2020 09:36:00 AM EST [facility] ([facility] Name Value Range Interpretation Code Description Data Julianna rce(s) Supporting Document(s) Thyrotropin [Units/volume] in Serum or Plasma 1.814 ulU/mL 0.60-4.8 [facility] ([facility] ID Date Data Source [id number] 03/13/2020 09:36:00 AM EST [facility] ([facility] [...] HCT IS 5% LESS SOURCE FOR DATA: [employer] 1800 OPERATION MANUAL( AUTOMATED BLOOD COUNTS AND [...] 2-19 YEARS EXCLUSIVE. Chol 122 mg/dL 0-[address] [facility] NORMAL RANGES Age WBC [...] HCT IS 5% LESS SOURCE FOR DATA: [employer] 1800 OPERATION MANUAL( AUTOMATED BLOOD COUNTS AND [...] HCT IS 5% LESS SOURCE FOR DATA: [employer] 1800 OPERATION MANUAL( AUTOMATED BLOOD COUNTS AND [...] HCT IS 5% LESS SOURCE FOR DATA: [employer] 1800 OPERATION MANUAL( AUTOMATED BLOOD COUNTS AND [...] 2-19 YEARS EXCLUSIVE. Cho/HDL Ratio 3.9 CALC [facility] ([facility] NORMAL RANGES Age WBC RBC HGB [...] HCT IS 5% LESS SOURCE FOR DATA: [employer] 1800 OPERATION MANUAL( AUTOMATED BLOOD COUNTS AND [...] 2-19 YEARS EXCLUSIVE. ID Date Data Source [id number] 03/13/2020 09:36:00 AM EST [facility] ([facility] Name Value Range Interpretation Code Description Data Julianna rce(s) Supporting Document(s) Creatine kinase [Enzymatic activity/volume] in Serum or Plasma 3 6 U/L 39-308 Below low normal [facility] ([facility] ) NORMAL RANGES [...] HCT IS 5% LESS SOURCE FOR DATA: [employer] 1800 OPERATION MANUAL( AUTOMATED BLOOD COUNTS AND [...] 2-19 YEARS EXCLUSIVE. ID Date Data Source [id number] 03/13/2020 09:36:00 AM EST [facility] ([facility] Name Value Range Interpretation Code Description Data Julianna rce(s) Supporting Document(s) Glu 123 mg/dL 70-110 Above high normal MEDJAK ([facility] NORMAL RANGES Age WBC [...] HCT IS 5% LESS SOURCE FOR DATA: [employer] 1800 OPERATION MANUAL( AUTOMATED BLOOD COUNTS AND [...] Creat 2.8 mg/dL 0.7-1.2 Above high normal [facility] (Family [...] HCT IS 5% LESS SOURCE FOR DATA: [employer] 1800 OPERATION MANUAL( AUTOMATED BLOOD COUNTS AND [...] mg/dL 8-23 Above high normal [facility] ([facility] NORMAL RANGES Age WBC [...] HCT IS 5% LESS SOURCE FOR DATA: [employer] 1800 OPERATION MANUAL( AUTOMATED BLOOD COUNTS AND [...] 2-19 YEARS EXCLUSIVE. Na 140 mmol/L 136-[address] [facility] ([facility] NORMAL RANGES Age [...] HCT IS 5% LESS SOURCE FOR DATA: [employer] 1800 OPERATION MANUAL( AUTOMATED BLOOD COUNTS AND [...] 2-19 YEARS EXCLUSIVE. BUN/Creatinine Ratio 17.4 CALC [facility] ([facility] NORMAL RANGES Age WBC [...] HCT IS 5% LESS SOURCE FOR DATA: [employer] 1800 OPERATION MANUAL( AUTOMATED BLOOD COUNTS AND [...] 2-19 YEARS EXCLUSIVE. CL 103.2 mmol/L 98.0-107.[address] [facility] (Family [facility] NORMAL RANGES Age WBC [...] HCT IS 5% LESS SOURCE FOR DATA: [employer] 1800 OPERATION MANUAL( AUTOMATED BLOOD COUNTS AND [...] 2-19 YEARS EXCLUSIVE. K 4.3 mmol/L 3.5-5.1 [facility] ([facility] NORMAL RANGES Age [...] 2-19 YEARS EXCLUSIVE. Co2 24.6 mmol/L 22.0-29.0 [employer] ([facility] NORMAL RANGES Age WBC [...] HCT IS 5% LESS SOURCE FOR DATA: [employer] 1800 OPERATION MANUAL( AUTOMATED BLOOD COUNTS AND [...] HCT IS 5% LESS SOURCE FOR DATA: [employer] 1800 OPERATION MANUAL( AUTOMATED BLOOD COUNTS AND [...] 2-19 YEARS EXCLUSIVE. CA 9.2 mg/dL 8.6-10.[address] [facility] ([facility] NORMAL [...] HCT IS 5% LESS SOURCE FOR DATA: [employer] 1800 OPERATION MANUAL( AUTOMATED BLOOD COUNTS AND [...] 2-19 YEARS EXCLUSIVE. Alb 4.1 g/dL 3.5-5.[address] [facility] ([facility] NORMAL [...] HCT IS 5% LESS SOURCE FOR DATA: [employer] 1800 OPERATION MANUAL( AUTOMATED BLOOD COUNTS AND [...] HCT IS 5% LESS SOURCE FOR DATA: [employer] 1800 OPERATION MANUAL( AUTOMATED BLOOD COUNTS AND [...] HCT IS 5% LESS SOURCE FOR DATA: [facility] DYN 1800 OPERATION MANUAL( AUTOMATED BLOOD COUNTS [...] HCT IS 5% LESS SOURCE FOR DATA: [employer] 1800 OPERATION MANUAL( AUTOMATED BLOOD COUNTS AND [...] YEARS EXCLUSIVE. Alt (SGPT) 13 U/L 0-41 [facility] ([facility] NORMAL RANGES Age [...] HCT IS 5% LESS SOURCE FOR DATA: [employer] 1800 OPERATION MANUAL( AUTOMATED BLOOD COUNTS AND [...] YEARS EXCLUSIVE. Ast (Sgot) 15 U/L 0-[address] [facility] NORMAL RANGES Age WBC RBC [...] HCT IS 5% LESS SOURCE FOR DATA: [employer] 1800 OPERATION MANUAL( AUTOMATED BLOOD COUNTS AND [...] HCT IS 5% LESS SOURCE FOR DATA: [employer] 1800 OPERATION MANUAL( AUTOMATED BLOOD COUNTS AND [...] HCT IS 5% LESS SOURCE FOR DATA: [employer] 1800 OPERATION MANUAL( AUTOMATED BLOOD COUNTS AND [...] 2-19 YEARS EXCLUSIVE. Anion Gap 16 mmol/L [facility] ([facility] NORMAL [...] HCT IS 5% LESS SOURCE FOR DATA: [employer] 1800 OPERATION MANUAL( AUTOMATED BLOOD COUNTS AND [...] INDIVIDUALA AGED 2-19 YEARS EXCLUSIVE. eGFR Non-Afr. [place] 20 # [facility] ([facility] [...] HCT IS 5% LESS SOURCE FOR DATA: [employer] 1800 OPERATION MANUAL( AUTOMATED BLOOD COUNTS AND [...] AGED 2-19 YEARS EXCLUSIVE. eGFR 23 # MEDJAK ( [facility] NORMAL RANGES Age [...] HCT IS 5% LESS SOURCE FOR DATA: [employer] 1800 OPERATION MANUAL( AUTOMATED BLOOD COUNTS AND [...] 2-19 YEARS EXCLUSIVE. ID Date Data Source [id number] 03/13/2020 09:36:00 AM EST [facility] ([facility] Name Value Range Interpretation Code Description Data Julianna rce(s) Supporting Document(s) WBC 9.4 10E3/uL 4.1-10.9 [facility] ([facility] NORMAL RANGES Age WBC [...] HCT IS 5% LESS SOURCE FOR DATA: [employer] 1800 OPERATION MANUAL( AUTOMATED BLOOD COUNTS AND [...] HCT IS 5% LESS SOURCE FOR DATA: [employer] 1800 OPERATION MANUAL( AUTOMATED BLOOD COUNTS AND [...] 2-19 YEARS EXCLUSIVE. HGB 12.4 g/dL 12.0-18.0 [facility] ([facility] NORMAL [...] MCV 101.1 fL 80.0-97.0 Above high normal [facility] ([facility] NORMAL RANGES [...] HCT IS 5% LESS SOURCE FOR DATA: [employer] 1800 OPERATION MANUAL( AUTOMATED BLOOD COUNTS AND [...] HCT IS 5% LESS SOURCE FOR DATA: [employer] 1800 OPERATION MANUAL( AUTOMATED BLOOD COUNTS AND [...] 2-19 YEARS EXCLUSIVE. MCHC 33.3 g/dL 31.0-36.[address] [facility] ([facility] NORMAL [...] HCT IS 5% LESS SOURCE FOR DATA: [employer] [facility] DYN 1800 OPERATION MANUAL( AUTOMATED BLOOD COUNTS [...] MCH 33.7 pg 26.0-32.0 Above high normal [facility] ([facility] NORMAL RANGES [...] HCT IS 5% LESS SOURCE FOR DATA: [employer] 1800 OPERATION MANUAL( AUTOMATED BLOOD COUNTS AND [...] 2-19 YEARS EXCLUSIVE. PLT 217 10E3/uL 140-[address] [facility] ([facility] NORMAL RANGES Age WBC [...] HCT IS 5% LESS SOURCE FOR DATA: [employer] 1800 OPERATION MANUAL( AUTOMATED BLOOD COUNTS AND [...] RDW-CV 15.7 % 11.5-14.5 Above high normal [facility] ([facility] NORMAL RANGES [...] HCT IS 5% LESS SOURCE FOR DATA: [employer] 1800 OPERATION MANUAL( AUTOMATED BLOOD COUNTS AND [...] 2-19 YEARS EXCLUSIVE. Lym% 12.5 % 10.0-58.[address] [facility] ([facility] NORMAL [...] HCT IS 5% LESS SOURCE FOR DATA: [employer] 1800 OPERATION MANUAL( AUTOMATED BLOOD COUNTS AND [...] 2-19 YEARS EXCLUSIVE. Neut% 74.6 % 37.0-92.0 [facility] ([facility] NORMAL [...] HCT IS 5% LESS SOURCE FOR DATA: [employer] 1800 OPERATION MANUAL( AUTOMATED BLOOD COUNTS AND [...] 2-19 YEARS EXCLUSIVE. MXD% 12.9 % 0.1-24.[address] [facility] ([facility] NORMAL [...] HCT IS 5% LESS SOURCE FOR DATA: [employer] 1800 OPERATION MANUAL( AUTOMATED BLOOD COUNTS AND [...] EXCLUSIVE. Lym# 1.2 10E3/uL 0.6-4.1 [facility] ([facility] NORMAL RANGES Age WBC [...] HCT IS 5% LESS SOURCE FOR DATA: [employer] 1800 OPERATION MANUAL( AUTOMATED BLOOD COUNTS AND [...] YEARS EXCLUSIVE. MXD# 1.2 10E3/uL 0.0-1.8 RG ([facility] NORMAL RANGES Age WBC RBC HGB [...] HCT IS 5% LESS SOURCE FOR DATA: [employer] 1800 OPERATION MANUAL( AUTOMATED BLOOD COUNTS AND [...] 2-19 YEARS EXCLUSIVE. Neut# 7.0 % 2.0-7.8 [facility] ([facility] NORMAL [...] HCT IS 5% LESS SOURCE FOR DATA: [employer] 1800 OPERATION MANUAL( AUTOMATED BLOOD COUNTS AND [...] HCT IS 5% LESS SOURCE FOR DATA: [employer] 1800 OPERATION MANUAL( AUTOMATED BLOOD COUNTS AND [...] 2-19 YEARS EXCLUSIVE. ID Date Data Source [id number] 02/12/2020 03:47:00 PM EST [facility] ([facility]) Name Value Range Interpretation Code Description Data Julianna rce(s) Supporting Document(s) Magnesium Level 1.81 [facility] (Cardio logy [facility]) ID Date Data Source [id number] 02/12/2020 03:47:00 PM EST [facility] ([facility] Name Value Range Interpretation Code Description Data Julianna rce(s) Supporting Document(s) White Blood Count 5.1 4.3-10.9 [facility] (Card iology [facility]) Red Blood Count 3.38 4.70-6.20 [facility] (Cardio logy Associates [facility]) Hematocrit 35.3 39.0-50.0 [facility] (Cardiology [facility]) Hemoglobin 11.2 13.0-17.0 [facility] ([facility]) Platelets 197 130-400 [facility] (Cardiology [facility]) ID Date Data Source [id number] 02/12/2020 03:47:00 PM EST [facility] ([facility] Name Value Range Interpretation Code Description Data Julianna rce(s) Supporting Document(s) Creatinine 2.0 0.6-1.5 [facility] (Cardiology [facility]) Blood Urea Nitrogen 31.9 5-21 [facility] (Ca rdiology Associates [facility]) Glucose 72 70-100 [facility] (Cardiology A ssociates [facility]) Glomerular filtration rate/1.73 sq M.pre dicted [Volume Rate/Area] in Serum or Plasma by Creatinine-based formula (MDRD) 32 [facility] ([facility]) Potassium 3.98 3.5-5.3 [facility] (Cardiology A ssociates [facility]) Sodium 136.8 136-146 [facility] (Cardiology A ssociates [facility]) Chloride 99.8 98-110 [facility] ([facility] [place] Calcium 9.0 8.4-10.4 [facility] ([facility] [place] Carbon Dioxide 31.0 20-32 [facility] ([facility] [place] Phosphorus 3.5 [facility] ([facility] [place] Albumin 3.5 3.5-4.7 [facility] ([facility] [place] ID Date Data Source [id number] 01/13/2020 06:56:00 AM EST [facility] ([facility] Name Value Range Interpretation Code Description Data Julianna rce(s) Supporting Document(s) Coronavirus 2019 Nasopharygeal Laboratory test result [facility] ([facility] Laboratory test finding (navigational concept) Laboratory test r esult Normal (applies to non-numeric results) [facility] ([facility] A false negative result may [...] pathogens. DISCLAIMER: Testing was performed using the [employer] SARS-CoV-2 test. This test was developed and its performance characteristics determined by [employer]. This test has not been FDA cleared [...] or revoked sooner. ID Date Data Source [id number] 01/13/2020 05:20:00 AM EST [facility] ([facility] Name Value Range Interpretation Code Description Data Julianna rce(s) Supporting Document(s) Laboratory test finding (navigational concept) 0.01 ng/mL 0 .00-0.08 Normal (applies to non-numeric results) [facility] ([facility] Troponin I.cardiac [Mass/volume] in Serum or Plasma Laboratory test result [facility] ([facility] ID Date Data Source [id number] 01/13/2020 05:03:00 AM EST [facility] ([facility] Name Value Range Interpretation Code Description Data Julianna rce(s) Supporting Document(s) Natriuretic peptide.B prohormone N-Terminal [Mass/volu me] in Serum or Plasma 4334 pg/mL Above high normal [facility] ([facility] Lactate [Mass/volume] in Serum or Plasma 0.9 mmol/L 0.4-2.0 Normal (applies to non-numeric results) [facility] ([facility]) Y/N query for Sepsis Lactate Rule: Y ID Date Data Source [id number] 01/13/2020 05:03:00 AM EST [facility] ([facility] Name Value Range Interpretation Code Description Data Julianna rce(s) Supporting Document(s) Glucose, Fasting 105 mg/dL 70-100 Above high normal M EDENT ([facility] Blood Urea Nitrogen 53 mg/dL 7-18 Above high normal [facility] ([facility] Creatinine For GFR 2.67 mg/dL 0.70-1.30 Above high normal [facility] ([facility] Glomerular Filtration Rate 24.4 Below low normal [facility] ([facility] <content>Units are mL/min/1.73 m2</content>
<content></content>
<content>Chronic Kidney Disease Staging per NKF:</content>
<content></content>
<content>Stage I & II GFR >=60 Normal to Mildly Decreased</content>
<content>Stage III GFR 30- 59 Moderately Decreased</content>
<content>Stage IV GFR 15-29 Severely Decreased</content>
<content>Stage V GFR <15 Very Little GFR Left</content>
<content>ESRD GFR <15 on ZIPPER JOINER</content>
<content></content> Potassium Serum 5.1 meq/L 3.5-5.1 Normal (applies to non-numeric results) [facility] ([facility] Sodium Level 143 meq/L 136-145 Normal (applies to non-numeric res ults) [facility] ([facility] Carbon Dioxide Level 24 meq/L 21-32 Normal (applies to non-num stephen results) [facility] ([facility] Chloride Level 113 meq/L 98-107 Above high normal [facility] ([facility] Anion Gap 6 meq/L 8-16 Below low normal [facility] ( [facility] Calcium Level 8.6 mg/dL 8.8-10.2 Below low normal MEDEN T ([facility] ID Date Data Source [id number] 01/13/2020 05:03:00 AM EST [facility] ([facility] Name Value Range Interpretation Code Description Data Julianna rce(s) Supporting Document(s) Ast/Sgot 28 U/L 7-37 Normal (applies to non-numeric resul ts) [facility] ([facility] Alt/SGPT 29 U/L 12-78 Normal (applies to non-numeric resul ts) [facility] ([facility] Alkaline Phosphatase 178 U/L 45-117 Above high normal [facility] ([facility] Bilirubin,Total 0.3 mg/dL 0.2-1.0 Normal (applies to non-numeric results) [facility] ([facility] Total Protein 6.8 GM/DL 6.4-8.2 Normal (applies to non-numeric re sults) [facility] ([facility] Bilirubin,Direct 0.1 mg/dL 0.0-0.2 Normal (applies to non-numeric results) [facility] ([facility] Albumin/Globulin Ratio 1.1 Normal (applies to non-n umeric results) [facility] ([facility] Albumin 3.5 GM/DL 3.2-5.2 Normal (applies to non-numeric resul ts) [facility] ([facility] ID Date Data Source [id number] 01/13/2020 05:03:00 AM EST [facility] ([facility] Name Value Range Interpretation Code Description Data Julianna rce(s) Supporting Document(s) White Blood Count 9.4 10 4.0-10.0 Normal (applies to non-numeri c results) [facility] ([facility] Red Blood Count 3.69 10 4.30-6.10 Below low normal [facility] ([facility] Hemoglobin 12.0 g/dL 13.5-17.5 Below low normal [facility] ( [facility] Hematocrit 38.1 % 42.0-52.0 Below low normal [facility] ( [facility] Mean Corpuscular Volume 103.3 fl 80.0-96.0 Above high normal [facility] ([facility] Mean Corpuscular Hemoglobin 32.5 pg 27.0-33.0 Norm al (applies to non-numeric results) [facility] ([facility] ) Mean Corpuscular HGB Conc 31.5 g/dL 32.0-36.5 Below low normal [facility] ([facility] Red Cell Distribution Width 15.1 % 11.5-14.5 Above high normal MEDENT ([facility] Platelet Count, Automated 173 10 150-450 Normal (applies to non-numeric results) MED[facility] ([facility] ) Neutrophils % 70.6 % 36.0-66.0 Above high normal MEDE NT ([facility] Lymph % 13.0 % 24.0-44.0 Below low normal MEDENT ( [facility] [place] % 5.7 % 0.0-5.0 Above high normal MEDENT ([facility] Eos % 9.9 % 0.0-3.0 Above high normal MEDENT ([facility] Baso % 0.5 % 0.0-1.0 Normal (applies to non-numeric resul ts) [facility] ([facility] Immature Granulocyte % 0.3 % 0-3.0 Normal (applies to non-n umeric results) MED[facility] ([facility] Nucleated Red Blood Cell % 0.0 % 0-0 Normal (applies to n on-numeric results) MED[facility] ([facility] Neutrophils # 6.6 10 1.5-8.5 Normal (applies to non-numeric re sults) MED[facility] ([facility] [place] # 0.5 10 0.0-0.8 Normal (applies to non-numeric resul ts) MED[facility] ([facility] Lymph # 1.2 10 1.5-5.0 Below low normal MEDENT ( [facility] Baso # 0.1 10 0.0-0.2 Normal (applies to non-numeric resul ts) [facility] ([facility] Eos # 0.9 10 0.0-0.5 Above high normal MEDENT ([facility] ID Date Data Source [id number] 12/12/2019 10:47:00 AM EDT [facility] ([facility]) Name Value Range Interpretation Code Description Data Julianna rce(s) Supporting Document(s) Magnesium Level 2.01 [facility] ([facility]) ID Date Data Source [id number] 12/12/2019 10:47:00 AM EDT [facility] ([facility]) Name Value Range Interpretation Code Description Data Julianna rce(s) Supporting Document(s) White Blood Count 6.3 4.3-10.9 [facility] ([facility]) Red Blood Count 3.41 4.70-6.20 [facility] ([facility]) Platelets 195 130-400 MEDENT ([facility]) Hematocrit 35.7 39.0-50.0 [facility] ([facility]) Hemoglobin 11.9 13.0-17.0 [facility] ([facility]) ID Date Data Source [id number] 12/12/2019 10:47:00 AM EDT [facility] ([facility] Name Value Range Interpretation Code Description Data [...] 26.9 20-32 [facility] ([facility]) Albumin 3.6 3.5-4.7 [facility] ([facility] [place] Procedure Social History Code Duration Value Status Description Data Source(s ) Smoking 10/28/2020 12:00:00 AM EDT Patient is a former smoker completed Patient is a former smoker [facility] ([facility], ) Smoking 07/31/2020 12:00:00 AM EDT Former Smoker completed Former Smoker eCW1 ([facility]) Smoking 07/24/2020 12:00:00 AM EDT Former Smoker completed Former Smoker eCW1 ([facility]) Smoking 06/24/2020 12:00:00 AM EDT Patient is a former smoker completed Patient is a former smoker [facility] ([facility] ) Vital Signs ID Date Data Source [id number] Name Value Range Interpretation Code Description Data Source(s) [place] body weight 166 [lb_av] 166 [lb_av] MEDEN T ([facility] Systolic blood pressure 122 mm[Hg] 122 mm[Hg] M EDENT ([facility] Diastolic blood pressure 60 mm[Hg] 60 mm[Hg] [facility] ([facility] Body temperature 97.3 [degF] 97.3 [degF] [facility] ([facility] Heart rate 64 /min 64 /min [facility] ([facility] Respiratory rate 18 /min 18 /min MED[facility] ( [facility] Body height 70 [in_i] 70 [in_i] MEDENT ([facility] 5'10" Body weight 183.00 [lb_av] 183.00 [lb_av] MEDEN T ([facility] Body mass index (BMI) [Ratio] 26.3 kg/m2 26.3 k g/m2 MED[facility] ([facility] Oxygen saturation in Arterial blood by Pulse oximetry 100 % 100 % [facility] ([facility] Systolic blood pressure 118 mm[Hg] 118 mm[Hg] M EDENT ([facility], ) Diastolic blood pressure 70 mm[Hg] 70 mm[Hg] MEDENT ([facility], ) Heart rate 74 /min 74 /min [facility] ([facility], ) Oxygen saturation in Arterial blood by Pulse oximetry 95 % 95 % [facility] ([facility], ) Room Air Body height 69 [in_i] 69 [in_i] MEDENT ([facility], ) 5'9" [place] body weight 160 [lb_av] 160 [lb_av] MEDEN T ([facility], ) Body height 70 [in_i] 70 [in_i] MEDENT ([facility] 5'10" Body mass index (BMI) [Ratio] 27.4 kg/m2 27.4 k g/m2 MED[facility] ([facility] Oxygen saturation in Arterial blood by Pulse oximetry 99 % 99 % [facility] ([facility] Body temperature 97.5 [degF] 97.5 [degF] MEDENT ([facility] Heart rate 90 [...] [lb_av] MEDEN T ([facility] [place] body weight 166 [lb_av] 166 [lb_av] MEDEN T ([facility] Body weight 185 [lb_av] 185 [lb_av] eCW1 ([facility]) Body weight kg eCW1 ([facility]) Body height [in_i] eCW1 ([facility]) Body mass index (BMI) [Ratio] 26.54 kg/m2 26.54 kg/m2 eCW1 ([facility]) Heart rate 47 /min 47 /min eCW1 ([facility]) Respiratory rate 18 /min 18 /min eCW1 ([facility]) Body temperature 97 [degF] 97 [degF] eCW1 ([facility]) Systolic blood pressure 136 mm[Hg] 136 mm[Hg] e CW1 ([facility]) Diastolic blood pressure 77 mm[Hg] 77 mm[Hg] eCW1 ([facility]) Body weight 185 [lb_av] 185 [lb_av] eCW1 ([facility]) Systolic blood pressure 176 mm[Hg] 176 mm[Hg] e CW1 ([facility]) Diastolic blood pressure 86 mm[Hg] 86 mm[Hg] eCW1 ([facility]) Body height [in_i] eCW1 ([facility]) Body mass index (BMI) [Ratio] 26.54 kg/m2 26.54 kg/m2 eCW1 ([facility]) Heart rate 79 /min 79 /min eCW1 ([facility]) Respiratory rate 18 /min 18 /min eCW1 ([facility]) Body temperature 98.3 [degF] 98.3 [degF] eCW1 ( [facility]) Systolic blood pressure 134 mm[Hg] 134 [...] 54 /min [facility] ([facility] [place] body weight 166 [lb_av] 166 [lb_av] MEDEN T ([facility] Oxygen saturation in Arterial blood by Pulse oximetry 94 % 94 % [facility] ([facility] Body temperature 96.9 [degF] 96.9 [degF] MED[facility] ([facility] Body height 70 [in_i] 70 [in_i] MEDENT ([facility] 5'10" Body weight 178.00 [lb_av] 178.00 [lb_av] MEDEN T ([facility] Body temperature 97.3 [degF] 97.3 [degF] MEDENT ([facility] Heart rate 48 /min 48 /min MED[facility] ([facility] Body weight 179.00 [lb_av] 179.00 [lb_av] MEDEN T ([facility] Body height 70 [in_i] 70 [in_i] MEDENT ([facility] 5'10" [place] body weight 166 [lb_av] 166 [lb_av] MEDEN T ([facility] Body mass index (BMI) [Ratio] 25.7 kg/m2 25.7 k g/m2 MED[facility] ([facility] Oxygen saturation in Arterial blood by Pulse oximetry 93 % 93 % [facility] ([facility] Respiratory rate 16 /min 16 /min MED[facility] ( [facility] Systolic blood pressure 138 mm[Hg] 138 mm[Hg] M EDENT ([facility] Diastolic blood pressure 82 mm[Hg] 82 mm[Hg] MED[facility] ([facility] Oxygen saturation in Arterial blood by Pulse oximetry 98 % 98 % [facility], ) Room Air Body temperature 97.3 [degF] 97.3 [degF] MEDENT ([facility]) Body height 69 [in_i] 69 [in_i] MEDENT ([facility]) 5'9" [place] body weight 160 [lb_av] 160 [lb_av] MEDEN T ([facility]) Systolic blood pressure 126 mm[Hg] 126 mm[Hg] M EDENT ([facility]) Diastolic blood pressure 76 mm[Hg] 76 mm[Hg] MEDENT ([facility]) Heart rate 67 /min 67 /min MEDENT ([facility]) Oxygen saturation in Arterial blood by Pulse oximetry 98 % 98 % [facility] ([facility]) Room Air Body temperature 97.3 [degF] 97.3 [degF] [facility] ([facility]) Body height 69 [in_i] 69 [in_i] [facility] ([facility]) 5'9" [place] body weight 160 [lb_av] 160 [lb_av] MEDEN T ([facility]) Diastolic blood pressure 84 mm[Hg] 84 mm[Hg] MED[facility] ([facility] Body temperature 98.4 [degF] 98.4 [degF] [facility] ([facility] Heart rate 52 /min 52 /min MED[facility] ([facility] Respiratory rate 16 /min 16 /min MED[facility] ( [facility] [place] body weight 166 [lb_av] 166 [lb_av] MEDEN T ([facility] Oxygen saturation in Arterial blood by Pulse oximetry 97 % 97 % [facility] ([facility] Systolic blood pressure 134 mm[Hg] 134 mm[Hg] M EDENT ([facility] Body height 70 [in_i] 70 [in_i] [facility] ([facility] 5'10" Body weight 187.00 [lb_av] 187.00 [lb_av] MEDEN T ([facility] Body mass index (BMI) [Ratio] 26.8 kg/m2 26.8 k g/m2 [facility] ([facility] Systolic blood pressure 118 mm[Hg] 118 mm[Hg] M EDENT ([facility] Heart rate 52 /min 52 /min [facility] ([facility] Respiratory rate 18 /min 18 /min [facility] ( [facility] Body height 70 [in_i] 70 [in_i] MEDENT ([facility] 5'10" Body weight 192.00 [lb_av] 192.00 [lb_av] MEDEN T ([facility] [place] body weight 166 [lb_av] 166 [lb_av] MEDEN T ([facility] Body mass index (BMI) [Ratio] 27.5 kg/m2 27.5 k g/m2 [facility] ([facility] Oxygen saturation in Arterial blood by Pulse oximetry 97 % 97 % [facility] ([facility] Diastolic [...] [lb_av] MEDEN T ([facility] [place] body weight 166 [lb_av] 166 [lb_av] MEDEN T ([facility] Body mass index (BMI) [Ratio] 26.5 kg/m2 26.5 k g/m2 [facility] ([facility] Oxygen saturation in Arterial blood by Pulse oximetry 95 % 95 % [facility] ([facility] Diastolic blood pressure 52 mm[Hg] 52 mm[Hg] [facility] ([facility] Body temperature 97.1 [degF] 97.1 [degF] [facility] ([facility] Heart rate 84 /min 84 /min [facility] ([facility] Respiratory rate 18 /min 18 /min [facility] ( [facility] Body height 70 [in_i] 70 [in_i] [facility] ([facility] 5'10" Body weight 178.00 [lb_av] 178.00 [lb_av] MEDEN T ([facility] [place] body weight 166 [lb_av] 166 [lb_av] MEDEN T ([facility] Body mass index (BMI) [Ratio] 25.5 kg/m2 25.5 k g/m2 [facility] ([facility] Oxygen saturation in Arterial blood by Pulse oximetry 98 % 98 % [facility] ([facility] Systolic blood pressure 98 mm[Hg] 98 mm[Hg] M EDJAK ([facility] Patient Treatment Plan of Care Planned Activity Planned Date Details Description Data Source (s) Betamethasone 0.5 MG/ML / Clotrimazole 10 MG/ML Topica l Cream 07/24/2020 12:00:00 AM EDT eCW1 ([facility])
[2021-01-24 17:56] LABS: VENOUS BASE EXCESS 0.3 (-2.0-2.0); VENOUS HCO3 26.4 MEQ/L (23.0-27.0); VENOUS O2 SATURATION 56.9 % (60.0-80.0); VENOUS PARTIAL PRESSURE CO2 48.5 mmHg (38.0-50.0); VENOUS PARTIAL PRESSURE O2 30.3 mmHg (30.0-50.0); VENOUS PH 7.354 UNITS (7.330-7.430); VENOUS STANDARD HCO3 23.9 MEQ/L; VENOUS TOTAL CO2 27.9 MEQ/L (24.0-28.0)
[2021-01-24 18:06] LABS: BASO % 0.4 % (0.0-1.0); EOS # 0.4 10^3/uL (0.0-0.5); EOS % 4.7 % (0.0-3.0); HEMATOCRIT 36.8 % (42.0-52.0); HEMOGLOBIN 12.1 g/dl (13.5-17.5); LYMPH # 1.3 10^3/uL (1.5-5.0); MEAN CORPUSCULAR HEMOGLOBIN 33.5 pg (27.0-33.0); MEAN CORPUSCULAR HGB CONC 32.9 g/dl (32.0-36.5); MEAN CORPUSCULAR VOLUME 101.9 fl (80.0-96.0); MONO # 0.8 10^3/uL (0.0-0.8); MONO % 8.1 % (2.0-8.0); NEUTROPHILS # 6.7 10^3/uL (1.5-8.5); NEUTROPHILS % 72.5 % (36.0-66.0); PLATELET COUNT, AUTOMATED 164 10^3/uL (150-450); RED BLOOD COUNT 3.61 10^6/uL (4.30-6.10); WHITE BLOOD COUNT 9.3 10^3/uL (4.0-10.0)
[2021-01-24 18:28] LABS: CK-MB VALUE MASS 2.1 NG/ML (<3.6); CPK CREATINE PHOSPHOKINASE 53 U/L (39-308); MB/CK RELATIVE INDEX 3.96 (< OR =4); TROPONIN I < 0.02 NG/ML (< 0.10)
[2021-01-24 18:34] LABS: CREATININE FOR GFR 2.41 MG/DL (0.70-1.30); FREE T4 1.32 NG/DL (0.76-1.46); GLOMERULAR FILTRATION RATE 27.4 (>35); MAGNESIUM LEVEL 2.2 MG/DL (1.8-2.4); POTASSIUM SERUM 4.1 MEQ/L (3.5-5.1); THYROID STIMULATING HORMONE 1.63 uIU/ML (0.358-3.740)
[2021-01-24] MEDS ORDERED: IPRATROPIUM 0.5MG/ALBUTEROL 2.5MG INH SOL UD 3ML (DUONEB) NEB ONE (18:55)
[2021-01-24] MEDS: COMBIVENT RESPIMAT 100-20MCG INHALER 4GM INH SCH ×2 (19:25→19:34)
[2021-01-24] MEDS ORDERED: ALLO300T2 PO (19:42)
--- NOTE | 2021-01-24 19:42 | REP ---
INDICATION: Syncope/near-syncope COMPARISON: 01/13/2020 TECHNIQUE: Portable AP view of the chest FINDINGS: The mediastinum and cardiac silhouette are stable and within normal limits for portable technique. The lung clark are clear without acute consolidation, effusion, or pneumothorax. Skeletal structures are intact. IMPRESSION: Chronic stable changes. No acute cardiopulmonary process appreciated. <Electronically signed by Jez Carcamo > 01/24/21 193
[2021-01-24] MEDS ORDERED: PROAAER10 INH (19:49)
[2021-01-24] MEDS ORDERED: SPIR12.9 INH (19:51)
[2021-01-24] MEDS ORDERED: TAMS1CAP17 PO (19:51)
[2021-01-24] MEDS ORDERED: HOME MED LIST COMPLETE! XX SCH (19:55)
[2021-01-24 19:56] LABS: RSV AMPLIFICATION NEGATIVE (NEGATIVE)
--- NOTE | 2021-01-24 20:47 | ECGEPIP ---
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
--- NOTE | 2021-01-24 20:54 | REPVR ---
PROCEDURE INFORMATION: Exam: CT Chest Without Contrast; Diagnostic Exam date and time: 01/24/2021 6:52 PM Age: 85 years old Clinical indication: Other: Hypoxia TECHNIQUE: Imaging protocol: Diagnostic computed tomography of the chest without contrast. 3D rendering (Not supervised by radiologist): MIP and/or 3D reconstructed images were created by the technologist. Radiation optimization: All CT scans at this facility use at least one of these dose optimization techniques: automated exposure control; mA and/or kV adjustment per patient size (includes targeted exams where dose is matched to clinical indication); or iterative reconstruction. COMPARISON: CT Chest without contrast 08/08/2018 6:28 PM FINDINGS: Lungs: Scarring in bilateral lungs. 4 mm nodule in the right middle lobe. Pleural spaces: Unremarkable. No pneumothorax. No pleural effusion. Heart: Coronary vasculature calcifications. Aorta: stent in the ascending aorta Lymph nodes: Unremarkable. No enlarged lymph nodes. Diaphragm: Small hiatal hernia. Kidneys and ureters: 4.8 cm cyst at the upper pole of the left kidney. Bones/joints: Unremarkable. No acute fracture. Soft tissues: Unremarkable. IMPRESSION: 1. Nodule in the right middle lobe measuring 4 mm. For patients at low risk (minimal or absent history of smoking and of other known risk factors), no routine follow-up is indicated. For patients at high risk (history of smoking or of other known risk factors), consider optional CT Chest at 12 months. (Reference: Umm) References: Umm Curiel, et al. Guidelines for Management of Incidental Pulmonary Nodules Detected on CT Images: From the Fleischner Society 2017. Radiology. 2017;284(1):228-243. 2. Interval resolution of bilateral pleural effusions and atelectasis. 3. Scattered scarring in bilateral lungs. COMMENTS: Consistent with the [employer]'s Incidental Findings Committee white paper (J Am Chase Radiol 2018): Any incidental renal lesion less than 1 cm or classified as too small to characterize, or any incidental cystic renal lesion characterized as simple-appearing, is likely benign. No follow-up imaging is recommended for these lesions per consensus recommendations based on imaging criteria. Electronically signed by: Alexandre Sol On 01/24/2021 20:53:29 PM
[2021-01-24] MEDS ORDERED: APIXABAN 2.5 MG TAB (ELIQUIS) PO SCH (21:00)
--- NOTE | 2021-01-24 21:56 | REPVR ---
PROCEDURE INFORMATION: Exam: US Duplex Lower Extremity Veins, Bilateral Exam date and time: 01/24/2021 9:49 PM Age: 85 years old Clinical indication: Pain; Leg, lower; Right; Additional info: Rule out dvt, unable to obtain CT angio TECHNIQUE: Imaging protocol: Real-time duplex ultrasound of the extremities with 2-D robert scale, color Doppler flow and spectral waveform analysis with image documentation. Complete exam focused on the bilateral lower extremity veins. COMPARISON: US Duplex, Ext LOWER veins, bilat 03/08/2018 2:47 PM FINDINGS: Right deep veins: Unremarkable. The common femoral, femoral, proximal profunda femoral and popliteal veins are patent without thrombus. Normal Doppler waveforms. Normal compressibility and/or augmentation response. Right superficial veins: Saphenofemoral junction is patent without thrombus. Left deep veins: Unremarkable. The common femoral, femoral, proximal profunda femoral and popliteal veins are patent without thrombus. Normal Doppler waveforms. Normal compressibility and/or augmentation response. Left superficial veins: Saphenofemoral junction is patent without thrombus. Soft tissues: Unremarkable. IMPRESSION: No evidence of deep vein thrombosis. Electronically signed by: Alexandre Sol On 01/24/2021 21:56:03 PM
[2021-01-24] MEDS ORDERED: ALBUTEROL 90 MCG/ACT 8GM HFA INHALER INH PRN (22:20)
[2021-01-24] MEDS ORDERED: GLUCAGON INJ 1MG VIAL SC PRN (22:20)
[2021-01-24] MEDS ORDERED: GLUCOSE 4GM CHEW TABLET PO PRN (22:20)
[2021-01-24] MEDS ORDERED: DEXTROSE 50% 50 ML SYRINGE IV PRN (22:20)
--- NOTE | 2021-01-24 22:30 | HPEPDOC ---
General Date of Admission 01/24/21 Date of Service: Jan 24, 2021 Chief Complaint The patient is a 85-year-old male admitted with a reason for visit of Short Of Breath. 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 fib on Eliquis and diabetes who presents with complaints of lightheadedness and presyncope. Patient seen in ED bed in no acute distress. When asked regarding events prior to arrival he described the following: Patient got up from bed to walk to the bathroom and chcf walking from his bed to the bathroom with his walker he describes sensation of lightheadedness. Patient reports that is not uncommon for him to become lightheaded. He endorses feelings of lightheadedness with quick position changes for the past year. Patient describes to combat the lightheadedness he takes slow position changes and sits down if he starts feeling lightheaded. However, today it was unusual for him to be lightheaded after walking versus immediately upon standing. Patient reports he was able to make it to the bathroom and there he sat down and took time and slowly had his position changes after the bathroom and was able to make his way back to the bed, but again at the chcf point he began feeling lightheaded. Because this was the second time he felt lightheaded he was concerned that he may pass out which he has done in the past and thus he laid himself down on the ground and called for his [id number]. Reportedly, [id number] came down and saw patient on the floor and got him to a seated position and checked his oxygen and it was reported to be low. Pt denies peralta, sinus congestion, sore throat, productive cough, sob, palpitations, chest pain, n/v/d, edema or abdominal pain. Patient does report that he has had poor interest in eating and does not eat much. He endorses during exam it has almost been 24 hours since he last ate and his last meal was several cookies and coffee. Patient does report that he checks blood sugar twice a day and it has not been low or high. He also reports that he checks his temperature twice a day and he has not had a fever. He reports that at home because of his A. fib his blood pressure machine does not read correctly and thus he is unsure how his blood pressure has been. Patient does endorse right gluteal pain and reports it limiting his right lower extremity movement due to the moderate sore type pain. He attributes this to possibly "pulling something" when he was getting himself up from the floor. Patient endorses some deconditioning at baseline using a walker to get around at baseline and "terrible balance"; prone to falling. Patient reports his most recent fall was 2 weeks ago when he fell and hit the back of his head. The site of impact "hurt up until 2 days ago". Additionally mentioned, patient endorses a sensation of lightheadedness when he had his stroke and TIAs in the past. Patient came to the ED and at rest SPO2 greater than 92% but he was ambulated in the ED 81% oxygen at lowest with ambulation but he denied lightheadedness at bobby t time. Patient afebrile, not tachycardic and mildly hypertensive systolic blood pressure 140s to 160s. Patient underwent CT head which was nonacute. Additionally given the hypoxemia he underwent CT chest which was nonacute and showed interval resolution of his bilateral pleural effusions. Of note, there was a concern whether or not patient was with PE given elevated D-dimer but CT chest with contrast unable to be performed given creatinine level 2.41. Lateral lower extremity ultrasound completed negative DVT. Patient is on Eliquis given A. fib and he does report compliance with his medication. Patient will be admitted for further evaluation management presenting concerns. Home Medications Scheduled Apixaban (Eliquis) 2.5 Mg Tab, 2.5 MG PO BID, (Reported) Aspirin (Aspirin EC) 81 Mg Tab, 81 MG PO DAILY, (Reported) Atorvastatin Calcium (Atorvastatin Calcium) 40 Mg Tab, 40 MG PO DAILY, (Reported) Budesonide/Formoterol (Symbicort 160-4.5 Mcg Inhaler) 6 Gm Hfa.aer.ad, 2 PUFFS INH BID, (Reported) Carvedilol (Carvedilol) 12.5 Mg Tablet, 12.5 MG PO BID, (Reported) Ferrous Gluconate (Ferrous Gluconate) 324 Mg Tablet, 324 MG PO DAILY, (Reported) Levothyroxine Sodium (Synthroid) 25 Mcg Tab, 25 MCG PO DAILY, (Reported) Magnesium Chloride (Mag64) 64 Mg Tablet.dr, 64 MG PO DAILY, (Reported) Multivit-Mins/Iron/Folic/Lycop (Centrum Men's Tablet) 1 Each Tablet, 1 TAB PO DAILY, (Reported) Tamsulosin Hcl (Tamsulosin HCl) 0.4 Mg Capsule, 0.4 MG PO QHS, (Reported) Tiotropium [place] (Spiriva Respimat) 4 Gm Mist.inhal, 1 INHALATION INH DAILY, (Reported) Torsemide (Torsemide) 20 Mg Tablet, 30 MG PO DAILY, (Reported) Vitamin B Complex (Vitamin B Complex) 1 Each Tablet, 1 TAB PO QPM, (Reported) allopurinoL (allopurinoL) 300 Mg Tablet, 300 MG PO QHS, (Reported) Scheduled PRN Albuterol Sulfate (Proair Hfa) 8.5 Gm Hfa.aer.ad, 2 PUFF INH Q4H PRN for SHORTNESS OF BREATH, (Reported) Allergies Coded Allergies: NSAIDS (Non-Steroidal Anti-Inflamma (Verified Allergy, Mild, rash, 01/24/21) Penicillins (Verified Allergy, Mild, rash, 01/24/21) Past Medical History Medical History Cataracts, tinnitus, full dentures, CVA and mini strokes, CHF, HDL, A. fib, hypertension, COPD, sleep apnea not on CPAP, BPH, sciatica, diabetes, arthritis Surgical History Bilateral cataract extraction, inguinal hernia and umbilical hernia repair, cyst removal from front of neck and tailbone, aortic valve replacement Social History * Smoker: former Smoker (Quit 50 years ago) Alcohol: Denies Drugs: denies Recent Travel/Sick Contacts: Denies: Recent travel, Recent sick contacts Psychosocial History: No pertinent psych hx Patient reports he lives with his son and [id number] and a father in law suite. He is his less than a year ago A-FIB/CHADSVASC A-FIB History Current/History of A-Fib/PAF?: Yes Current PO Anticoag Therapy: Yes Review of Systems Constitutional: Denies: Chills, Fever, Night Sweats Eyes: Denies: Pain, Vision change ENT: Denies: Head Aches, Ear Pain, Dysphagia Skin: Denies: Rash, Lesions, Breakdown Pulmonary: Denies: Dyspnea, Cough Cardiovascular: Reports: Lt Headedness; Denies: Chest Pain, Palpitations, Orthopnea, Paroxysmal Noc. Dyspnea Gastrointestinal: Denies: Nausea, Vomiting, Abdominal Pain, Diarrhea Genitourinary: Denies: Dysuria, Frequency, Incontinence, Retention Hematologic: Denies: Bruising, Bleeding Excessively Musculoskeletal: Denies: Neck Pain, Back Pain, Joint Pain, Muscle Pain, Spasms Neurological: Denies: Weakness, Numbness, Change in speech, Confusion Psych: Reports: Mood Normal; Denies: Depression, Memory Issues Physical Examination General Exam: Positive: Alert, Cooperative, No Acute Distress Eye Exam: Positive: PERRLA, Conjunctiva & lids normal, EOMI; Negative: Sclera icteric ENT Exam: Positive: Atraumatic, Mucous membr. moist/pink, Pharynx Normal Neck Exam: Positive: Supple; Negative: JVD, thyromegaly Chest Exam: Positive: Clear to auscultation, Normal air movement Heart Exam: Positive: Rate Normal, Regular Rhythm, Normal S1, Normal S2; Negative: Murmurs, Rubs Telemetry: Positive: No significant arrhythmia Abdomen Exam: Positive: Normal bowel sounds, Soft; Negative: Tenderness, Hepatospenomegaly Extremity Exam: Positive: Normal pulses; Negative: Clubbing, Cyanosis, Edema Skin Exam: Positive: Nl turgor and temperature; Negative: Breakdown, Lesion Neuro Exam: Positive: Normal Speech, Cranial Nerves 3-12 NL, Reflexes 2+; Negative: Normal Gait, Strength at 5/5 X4 ext (ble WEAKNESS, rle 3/5, lle 4/5) Psych Exam: Positive: Mental status NL, Mood NL, Oriented x 3 Other physical findings Right gluteal tenderness Vital Signs Vital Signs Date Time Temp Pulse Resp B/P (MAP) Pulse Ox O2 Delivery O2 Flow Rate FiO2 01/24/21 21:15 76 18 147/95 (112) 98 Room Air 01/24/21 16:34 97.0 Laboratory Data Labs 24H Laboratory Tests 2 01/24/21 17:06: Immature Granulocyte % (Auto) 0.3, Neutrophils (%) (Auto) 72.5H, Lymphocytes (%) (Auto) 14.0L, Monocytes (%) (Auto) 8.1H, Eosinophils (%) (Auto) 4.7H, Basophils (%) (Auto) 0.4, Neutrophils # (Auto) 6.7, Lymphocytes # (Auto) 1.3L, Monocytes # (Auto) 0.8, Eosinophils # (Auto) 0.4, Basophils # (Auto) 0.0, Nucleated Red Blood Cells % (auto) 0.0, Anion Gap 7L, Glomerular Filtration Rate 27.4L, Calcium Level 9.0, Magnesium Level 2.2, Total Creatine Kinase 53, Creatine Kinase MB 2.1, Creatine Kinase MB Relative Index 3.96, Troponin I < 0.02, Thyroid Stimulating Hormone (TSH) 1.630, Free Thyroxine 1.32 01/24/21 17:45: Blood Gas Bicarbonate Standard 23.9, Venous Blood pH 7.354, Venous Blood Partial Pressure CO2 48.5, Venous Blood Partial Pressure O2 30.3, Venous Blood Total Carbon Dioxide 27.9, Venous Blood HCO3 26.4, Venous Blood Oxygen Saturation 56.9L, Venous Blood Base Excess 0.3 01/24/21 19:00: Coronavirus (COVID-19)(PCR) NEGATIVE, Influenza Type A (RT-PCR) NEGATIVE, Influenza Type B (RT-PCR) NEGATIVE, Respiratory Syncytial Virus (PCR) NEGATIVE CBC/BMP Laboratory Tests 01/24/21 17:06 RAD Interpretation STUDY: CT Chest Rad Actions: Report Reviewed RAD Interpretation: Other Result Comments: (CT chest nonacute; interval resolution bilateral pleural effusions and atelectasis, scattered scarring of bilateral lungs) STUDY: Ultrasound bilateral lowe Rad Actions: Report Reviewed Assessment/Plan 1. Lightheadedness and presyncope secondary to orthostasis: In setting of frail elder with deconditioning, ambulatory hypoxia and poor p.o. intake. CT had nonacute. Patient appears somewhat dry on exam; he endorses taking his torsemide as scheduled at home but "no interest in eating". He denied shortness of breath or increased from baseline dyspnea on exertion. During course of admission orthostatic vital signs positive -Plan for gentle fluid hydration with close monitoring for overload as patient at baseline has recurrent pleural effusions. -Consider initiating midodrine given patient limited on fluid hydration -A.m. labs -Consider differential as patient may be starting to have further deconditioning given his multiple comorbidities are also contributing to fatigue with activity; 2. CHF: Without acute exacerbation -Last echo on file Jan 2020, LVEF 50%, mod right ventricular systolic pressure 40 mmHg, normal right ventricle size/systolic function. Diastolic function limited d/t A. fib -Monitor fluid balance, I's and O's, urinary output -Plan for hydration as noted above and will schedule torsemide to be resumed in 24 hours -Monitoring creatinine closely; A.m. labs 3. COPD: Without acute exacerbation. Patient without wheeze tolerating room air at rest ABG shows compensation. Pt did drop with ambulation to 81% SPO2 reportedly however asymptomatic and SPO2 quickly recovered at rest. Monitor patient for signs symptoms of developing reactivity Telemetry and continuous pulse Scheduled and as needed breathing treatment Antitussives and mucolytic's as needed -A.m. lab -Consider repeat walk test for discharge for home as needed O2 -As mentioned regarding admission process patient underwent CT chest without contrast given elevated creatinine. D-dimer elevated bilateral lower extremity ultrasound negative DVT. Patient reports compliance with Eliquis. Lower suspicion for PE given his compliance but pending course consider VQ scan if suspicion intensifies. 4. A. fib: Rate controlled. Telemetry monitoring Continue home medication with parameters for blood pressure -Continue Eliquis 5. CKD: Creatinine at baseline range 2.4-2.7 -Monitor fluid balance, I's and O's, urinary output -Hydrate with consideration as mentioned above -Avoid nephrotoxins as able -A.m. labs 6. Right gluteal pain: In setting of hx of low back pain and per chart review sciatica. Likely aggravated given his strain up and down from floor today per patient's feedback. -Plan for monitoring and symptom management/supportive care. PT in a.m. 7. Poor p.o. intake: -Nutritional consult appreciated to assist with p.o. intake as this is likely contributing to patient's volume 8. Deconditioning and frail elder: -Fall precautions -PT evaluation and treatment appreciated for recommendations and therapeutic purposes 9. History of GEETA: Does not use CPAP at home. Patient is on continuous pulse ox given above. Consider as needed oxygen nocturnally. 10. Incidental CT finding: Right middle lobe nodule 4 mm. -Recommendations for CT chest at 12-month mare for monitoring. Remind patient for interval follow-up upon discharge DVT PX: Continue Eliquis CODE STATUS: Full code, next of kin son contact number on file Disposition planning: Home pending clinical improvement; anticipate less than 2 midnight stay Plan / VTE VTE Prophylaxis Ordered?: Yes MARGAUX CHAPMAN NP Jan 24, 2021 22:18
--- OUTSIDE RECORDS SUMMARY | 2021-01-24 22:37 | CCD ---
Author Author [facility] Organization [facility] Address Unknown Phone Unavailable Care Team Providers Care Exchange Floor Manager Name Role Phone Pritesh Acuna Sabrina PA [...] Unavailable Ortega ALFARO MD Unavailable Unavailable Ortega LAFARO MD Unavailable Unavailable Ortega ALFARO MD Unavailable [...] Fish, J Gurjit Unavailable Unavailable Fish, J Gurijt Unavailable Unavailable Fish, J Gurjit Unavailable Unavailable [...] is protected by Article 27-F of the [facility] Public Health law. If you continue you may have access to information: Regarding HIV / AIDS; Provided by facilities licensed or operated by the [facility] Office of Mental Health; or Provided by the [facility] Office for People With Developmental Disabilities. If such information is present, then the following [facility] mandated warning applies: This information has been [...] law may result in a fine or skilled nursing sentence or both. A general authorization for the release of medical or other information is NOT sufficient authorization for further disc losure. Family History Family Member Name Family Member Gender Family Member Status Date o f Status Description Data Source(s) Unknown Unknown Problem [facility] ([facility]) Unknown Unknown Problem [facility] ([facility] brother, age 66 Unknown Male Problem [facility] ([facility]) Unknown Male Problem [facility] ([facility]) Encounters Encounter Providers Location Date Indications Data Source(s ) Outpatient Attender: Gurjit Fish [place] [facility] 01/01/2021 01:15:0 0 PM EDT [facility] ([facility] Outpatient Attender: Sergio Stringer/Coby/Herman/R eindben 10/28/2020 11:00:00 AM EDT MED[facility] ([facility] Outpatient Attender: Gurjit FishReferrer: Gurjit FishConsultant: Gurjit Fish 09/24/2020 05:54:00 PM EDT - 09/24/2020 06:04:00 PM EDT [facility] Outpatient Attender: Gurjit Fish [place] [facility] 09/24/2020 09:40:0 0 AM EDT MED[facility] ([facility] (WND SOWMYA) Stretcher Required Patients [address] [place] [address] 07/31/2020 12:00:00 AM EDT eCW1 ([facility]) Outpatient [address] [facility] [address] 07/24/2020 12:00:00 AM EDT eCW1 ([facility]) Outpatient Attender: PIYUSH ALFARO MD [place] [facility] 01/2021 03:00:00 PM EDT [facility] ([facility] Outpatient Attender: Gurjit Ruiz [place] [facility] 06/24/2020 11:00:0 0 AM EDT MED[facility] ([facility] Outpatient Attender: Sergio Stringer/Coby/Herman/R david 04/29/2020 10:00:00 AM EST MED[facility] ([facility] Outpatient Attender: Sergio Stringer/Coby/Herman/R david 03/18/2020 09:00:00 AM EST MED[facility] ([facility] 08:00:0 0 AM EST [facility] ([facility] 01:00:0 0 PM EST [facility] ([facility] Outpatient Attender: [facility] 12/20/2019 11:30:0 0 AM EDT MED[facility] ([facility] Outpatient Attender: Sabrina FARIAS [place] [facility] 2019 01:30:00 PM EDT MED[facility] ([facility] Immunizations Vaccine Date Status Description Data Source(s) COVID-19 VACCINE Moderna 01/04/2021 12:00:00 AM EDT completed [facility] Vaccine Series Complete: YESThis Data wa s Submitted to [facility] Via reBounces. New in 2012. IIV4 01/01/2021 01:18:00 PM EDT completed MED[facility] ([facility] COVID-19 VACCINE Moderna 04/21/2020 12:00:00 AM EST completed [facility] Vaccine Series Complete: YESThis Data wa s Submitted to [facility] Via reBounces. COVID-19 VACCINE, MRNA-1273, LNP-S (MODERNA)/PF 04/21/2020 1 2:00:00 AM EST completed [facility] COVID-19 VACCINE, MRNA-1273, LNP-S (MODERNA)/PF 03/23/2020 1 2:00:00 AM EST completed [facility] COVID-19 VACCINE Moderna 03/23/2020 12:00:00 AM EST completed [facility] Vaccine Series Complete: NOThis Data was Submitted to [facility] Via reBounces. Medications Medication Brand Name Start Date Product [...] {application} active Clotri mazole-Betamethasone 1-0.05 % eCW1 ([facility]) Betamethasone 0.5 MG/ML / Clotrimazole 10 MG/ML [...] {application} active Clotri mazole-Betamethasone 1-0.05 % eCW1 ([facility]) Nystatin 880934 UNT/ML Topical Cream 100,000 unit/gram NYSTA TIN 07/18/2020 12:00:00 AM EDT cream 30 APPLY TO RASH ON SCROTUM THREE TIMES A DAY NEEDED APPLY TO RASH ON SCROTUM THREE TIMES A DAY NEEDED SOLD: 07/18/2020 [facility] Nystatin 050591 UNT/ML Topical Cream Nystatin 07/17/2020 12:00:00 AM EDT active [facility] ([facility] Nystatin 07/15/2020 12:00:00 AM EDT completed [facility] ([facility] carvedilol 12.5 MG Oral Tablet [...] Unspecified 04/21/2020 12:00:00 AM EST completed MED[facility] ([facility], ) Medication administered onsite Covid-19 vaccine, Unspecified 03/23/2020 12:00:00 AM EST completed [facility] ([facility], ) Medication administered onsite 10 mg [...] 12:00:00 AM EST RESPIRATORY active MED[facility] ( [facility], ) Prednisone 10 MG Oral Tablet Prednisone 03/18/2020 12:00:00 AM EST ORAL completed MED[facility] ([facility], ) 1-0.05 % 03/14/2020 12:00:00 AM [...] AM EDT ORAL active MEDENT ([facility] MAR[facility]) 500 mg 2019 12:00:00 AM EDT tablet 19 TAKE ONE TABLET BY MOUTH TWICE A DAY TAKE ONE TABLET BY MOUTH TWICE A DAY SOLD: 12/03/2019 [facility] Prednisone 10 MG Oral Tablet Prednisone 11/08/2019 12:00:00 AM EDT ORAL completed MED[facility] ([facility] Spironolactone 25 MG Oral Tablet Spironolactone 07/20/2019 12:00:00 A M EDT ORAL completed [facility] ([facility] Insurance Providers Payer name Policy type / Coverage type Policy ID Covered libertarian ID Covered libertarian's relationship to cruz Policy Cruz Plan Information [facility] [id number] [facility] [id number] Medicare (Part B) Medicare Primary [id number] Self [id number] Medicare Medicare Primary [id number] Self Medicare Medicare Primary [id number] 2..[id number] .3417.0 Self [id number] Medicare (Part B) Medicare Primary [id number] 2.16840.1.378433.3.227.99.572.7837.0 Self [id number] Medicare (Part B) Medicare Primary [id number] Self [id number] Medicare (Part B) Medicare Primary [id number] 2.16.840.1.880714.3.227.99.572.7837.0 Self [id number] Medicare (Part B) Medicare Primary [id number] 2.16840.1.899698.3.227.99.572.7837.0 Self [id number] Medicare (Part B) Medicare Primary [id number] 2.16.840.1.407607.3.227.99.572.7837.0 Self [id number] Medicare (Part B) Medicare Primary [id number] Self [id number] Medicare (Part B) Medicare Primary [id number] 2.16.840.1.018843.3.227.99.572.7837.0 Self 13 [id number] Medicare (Part B) Medicare Primary [id number] 2.16.840.1.058333.3.227.99.572.7837.0 Self 13 [id number] Medicare Medicare Primary [id number] 2.16.840.1.035118.3.227.99.716 .3417.0 Self [id number] MEDICARE [id number] SP [id number] [place] Primary 2.16840.1.588051.3.227. [id number] Self Medicare (Part B) Medicare Primary [id number] Self Medicare (Part B) Medicare Primary [id number] 2.16.840.1.408493.3.227.99.572.7837.0 Self [id number] MEDICARE [id number] Blanca [id number] Medicare (Part B) Medicare Primary [id number] Self [id number] [employer] (pr) Medigap Part B 2.16840.1.735124.3.227.99 .991.99883.0 Family Dependent DME Jurisdiction A NHIC C [id number] SELF [id number] [employer] F [id number] SELF [id number] UMR [id number] Spo [id number] [employer] / UMR F [id number] SELF [id number] Medicare C [id number] SELF [id number] A Umr Commercial [id number] 01 2.16840.1.335291.3.227.99.7 16.3417.0 Family Dependent [id number] 01 Medicare Medicare Primary [id number] 2.16.840.1.961478.3.227 .99.716.3417.0 Self [id number] r Commercial [id number] 01 2.16.840.1.168864.3.227.99.7 16.3417.0 Family Dependent [id number] 01 Medicare Medicare Primary [id number] 2.16.840.1.996563.3.227 .99.716.3417.0 Self [id number] [facility] [id number] [facility] [id number] R PI PI MEDICARE PI PI [employer] PHCS Ppo Medigap Part B [id number] 2.16.840.1.392228.3.227.99.572.7837.0 Family Dependent [id number] [employer] Medigap Part B [id number] 2.16.840.1.814110.3.227.99 .572.7837.0 Family Dependent [id number] Ghi Medigap Part B [id number] 2.16.840.1.386716.3.227.99.572.7837 .0 Self [id number] Umr Medigap Part B [id number] 2.16.840.1.792246.3.227.99 .572.7837.0 Family Dependent [id number] [employer] PHCS Ppo Medigap Part B [id number] 7f0f 2.16.840.1.706034.3.227.99.572.7837.0 Family Dependent [id number] [employer] Medigap Part B [id number] 2.16.840.1.834453.3.227.99 .572.7837.0 Family Dependent [id number] Ghi Medigap Part B [id number] 2.0.1.392532.3.227.99.572.7837 .0 Self [id number] Umr Medigap Part B [id number] 2.0.1.430460.3.227.99 .572.7837.0 Family Dependent [id number] [employer] PHCS Ppo Medigap Part B [id number] 2.0.1.886535.3.227.99.572.7837.0 Family Dependent [id number] [employer] Medigap Part B [id number] 2..1.856266.3.227.99 .572.7837.0 Family Dependent [id number] Ghi Medigap Part B [id number] 2..1.431802.3.227.99.572.7837 .0 Self 707995295 Umr Medigap Part B [id number] 2.0.1.138803.3.227.99 .572.7837.0 Family Dependent [id number] UMR -O/P [id number] 01 [id number] MEDICARE -O/P [id number] 18 [id number] MEDICARE [id number] SP [id number] A [employer] [id number] WI2 [id number] Umr Commercial [id number] 01 2.0.1.995387.3.227.99.7 16.3417.0 Family Dependent [id number] 01 Medicare Medicare Primary [id number] 2.0.1.915719.3.227 .99.716.3417.0 Self [id number] UMR O [id number] S [id number] MEDICARE C [id number] S [id number] A [employer] PHCS Ppo Medigap Part B [id number] 488d 2.16.840.1.310433.3.227.99.572.7837.0 Family Dependent [id number] [employer] Medigap Part B [id number] 2.16840.1.161050.3.227.99 .572.7837.0 Family Dependent [id number] [facility] [id number] WI2 [id number] r Medigap Part B [id number] 2.16840.1.485976.3.227.99 .572.7837.0 Family Dependent [id number] [employer] PHCS Ppo Medigap Part B [id number] 45a8 2.16840.1.957678.3.227.99.572.7837.0 Family Dependent [id number]-[id number] [employer] Medigap Part B [id number] 2.0.1.243911.3.227.99 .572.7837.0 Family Dependent 450125036 Ghi Medigap Part B [id number] 2.0.1.093689.3.227.99.572.7837 .0 Self 042598111 Umr Medigap Part B [id number] 2.0.1.355803.3.227.99 .572.7837.0 Family Dependent [id number] [employer] PPO O [id number] C [id number] [employer]-O/P [id number] 19 [id number] MEDICARE -O/P [id number] 18 [id number] Serg/Saw Lu.Al. [employer] Medigap Part B [id number] 2.16840.1.014563.3.227.99.716.3417.0 Family Dependent 89 [id number] [employer] PHCS Ppo Medigap Part B [id number] 3647 2.16840.1.718563.3.227.99.572.7837.0 Family Dependent [id number]-[id number] [employer] Medigap Part B [id number] 2.16.840.1.290248.3.227.99 .572.7837.0 Family Dependent 357034141 Ghi Medigap Part B [id number] 2.16.840.1.116598.3.227.99.572.7837 .0 Self 048668236 [employer] PHCS Ppo Medigap Part B [id number] 2b58 2.16.840.1.671235.3.227.99.572.7837.0 Family Dependent [id number]-[id number] [employer] Medigap Part B [id number] 2.16840.1.388369.3.227.99 .572.7837.0 Family Dependent 117201779 Ghi Medigap Part B [id number] 2.16840.1.765518.3.227.99.572.7837 .0 Self 276072072 [employer] Medigap Part B 74386 Family Dependent [place] [address] Self [employer] Medigap Part B 12436 Family Dependent [employer] PPO O [id number] P [id number] [employer]-O/P [id number] 19 [id number] Ghi Medigap Part B [id number] 2.16840.1.577461.3.227.99.572.7837 .0 Self [id number] MEDICARE [id number] SP [id number] UMR -O/P [id number] 01 [id number] MEDICARE PART A -O/P [id number] 18 [id number] [facility] [id number] WI2 [id number] UMR O [id number] S [id number] MEDICARE C [id number] S [id number] V13 [employer] PHCS Ppo Medigap Part B [id number] 6673 MRN.[id number] Family Dependent [id number]-[id number] [employer] Medigap Part B [id number] MRN.[id number] Family Dependent 150415045 Ghi Medigap Part B [id number] MRN.[id number] [id number] Self [id number] Umr Medigap Part B [id number] MRN.[id number] Family Dependent [id number] [employer] PHCS Ppo Medigap Part B [id number] 6543 MRN.[id number] Family Dependent [id number] [employer] Medigap Part B [id number] MRN.[id number] Family Dependent 923806128 Ghi Medigap Part B [id number] MRN.[id number] [id number] Self [id number] r Medigap Part B [id number] MRN.[id number] Family Dependent [id number] Umr Commercial [id number] 01 2.16.840.1.048852.3.227.99.7 16.3417.0 Family Dependent [id number] 01 Medicare Medicare Primary [id number] 2.16.840.1.286966.3.227 .99.716.3417.0 Self [id number] [employer] PHCS Ppo Medigap Part B [id number] 7d28 MRN.[id number] Family Dependent [id number] [employer] Medigap Part B [id number] MRN.[id number] Family Dependent 296695577 i Medigap Part B [id number] MRN.[id number] [id number] Self [id number] [facility] Medigap Part B [id number] MRN.[id number] Family Dependent [id number] SELF PAY [facility] o Medigap Part B [id number] 414f MRN.[id number] Family Dependent [id number]-[id number] [employer] Medigap Part B [id number] MRN.[id number]-[id number] Family Dependent 816378031 i Medigap Part B [id number] MRN.[id number] [id number] Self [id number] [facility] Medigap Part B [id number] MRN.[id number] Family Dependent [id number] Problems, Conditions, and Diagnoses Code Display Name Description Problem Type Effective Dates Data Source(s) I501 Left ventricular failure, unspecified Le ft ventricular failure, unspecified Diagnosis 09/24/2020 05:54:00 PM EDT [facility] J449 Chronic obstructive pulmonary disease, u nspecified Chronic obstructive pulmonary disease, unspecified Diagnosis 09/24/2020 05:54:00 PM EDT [facility] R0602 Shortness of breath Shortness of breath Diagnosis 0 09/24/2020 05:54:00 PM EDT [facility] [id number] Biventricular congestive heart failure B iventricular congestive heart failure Problem 12/21/2019 12:00:00 AM EDT MEDENT ([facility] Surgeries/Procedures Procedure Description Date Indications Data Source(s) OFFICE OUTPATIENT VISIT 25 MINUTES 01/01/2021 12:00:00 AM EDT MED[facility] ([facility] OFFICE OUTPATIENT VISIT 25 MINUTES 10/28/2020 12:00:00 AM EDT MEDENT ([facility], ) OFFICE OUTPATIENT VISIT 25 MINUTES 09/24/2020 12:00:00 AM EDT MED[facility] ([facility] OFFICE OUTPATIENT VISIT 15 MINUTES 07/15/2020 12:00:00 AM EDT [facility] ([facility] OFFICE OUTPATIENT VISIT 25 MINUTES 06/24/2020 12:00:00 AM EDT MED[facility] ([facility] Measure Blood Oxygen Level Continuous Overnight Monitor 05/27/2020 12:00:00 AM EDT [facility] DEMO&/EVAL OF PT UTILIZ AERSL GEN/NEB/INHLR/IPPB 04/29 12:00:00 AM EST MEDENT ([facility], ) Bronchospasm Evaluation 04/18/2020 12:00:00 AM EST MED[facility] ([facility], ) Plethysmography Determination Lung Volumes & Per Airway Resi st 04/18/2020 12:00:00 AM EST MEDENT ([facility], ) DIFFUSING CAPACITY 04/18/2020 12:00:00 AM EST MED[facility] ([facility], ) Results ID Date Data Source [id number] 01/01/2021 02:31:00 PM EDT MED[facility] ([facility] Name Value Range Interpretation Code Description Data Julianna rce(s) Supporting Document(s) Color Urine Laboratory test result Pritesh BERNARD ([facility] Appearance of Urine Laboratory test result MED[facility] ([facility] PH Urine 5.5 5.0-8.0 [facility] ([facility] Specific Pooler 1.015 1.00-1.03 MED[facility] ([facility] Glucose Urine Laboratory test result [facility] ([facility] Ketones Laboratory test result MED[facility] ([facility] Bilirubin.total [Presence] in Urine by Test strip Laboratory test res ult MED[facility] ([facility] Urobilinogen 0.2 EU/dl 0.2-1.0 MED[facility] ([facility] Blood Urine Laboratory test result M EDENT ([facility] Protein Urine Laboratory test result Above high normal [facility] ([facility] Nitrite Laboratory test result [facility] ([facility] Leukocytes Laboratory test result ME DENT ([facility] ID Date Data Source [id number] 01/01/2021 02:06:00 PM EDT MED[facility] ([facility] Name Value Range Interpretation Code Description Data Julianna rce(s) Supporting Document(s) Thyrotropin [Units/volume] in Serum or Plasma Laboratory test result [facility] ([facility] ID Date Data Source [id number] 01/01/2021 02:06:00 PM EDT MED[facility] ([facility] Name Value Range Interpretation Code Description Data Julianna rce(s) Supporting Document(s) Chol 122 mg/dL 0-200 [facility] ([facility] NORMAL RANGES Age [...] HCT IS 5% LESS SOURCE FOR DATA: [facility] 1800 OPERATION MANUAL( AUTOMATED BLOOD COUNTS AND [...] 2-19 YEARS EXCLUSIVE. Trig 113 mg/dL 35-200 [facility] NORMAL RANGES Age [...] HCT IS 5% LESS SOURCE FOR DATA: [facility] 1800 OPERATION MANUAL( AUTOMATED BLOOD COUNTS AND [...] HCT IS 5% LESS SOURCE FOR DATA: [employer] 1800 OPERATION MANUAL( AUTOMATED BLOOD COUNTS [...] HCT IS 5% LESS SOURCE FOR DATA: [facility] 1800 OPERATION MANUAL( AUTOMATED BLOOD COUNTS AND [...] 2-19 YEARS EXCLUSIVE. Cho/HDL Ratio 3.4 CALC [facility] ([facility] NORMAL RANGES Age WBC RBC HGB [...] HCT IS 5% LESS SOURCE FOR DATA: [facility] 1800 OPERATION MANUAL( AUTOMATED BLOOD COUNTS AND [...] 2-19 YEARS EXCLUSIVE. ID Date Data Source [id number] 01/01/2021 02:06:00 PM EDT [facility] ([facility] Name Value Range Interpretation Code Description Data Julianna rce(s) Supporting Document(s) Glu 108 mg/dL 70-110 [facility] ([facility] NORMAL RANGES [...] HCT IS 5% LESS SOURCE FOR DATA: [facility] 1800 OPERATION MANUAL( AUTOMATED BLOOD COUNTS AND [...] 35 mg/dL 8-23 Above high normal [facility] ([facility] NORMAL RANGES Age [...] HCT IS 5% LESS SOURCE FOR DATA: [facility] 1800 OPERATION MANUAL( AUTOMATED BLOOD COUNTS AND [...] HCT IS 5% LESS SOURCE FOR DATA: [employer] 1800 OPERATION MANUAL( AUTOMATED BLOOD COUNTS [...] 2-19 YEARS EXCLUSIVE. Na 139 mmol/L 136-145 [facility] ([facility] NORMAL RANGES Age WBC RBC [...] HCT IS 5% LESS SOURCE FOR DATA: [facility] 1800 OPERATION MANUAL( AUTOMATED BLOOD COUNTS AND [...] HCT IS 5% LESS SOURCE FOR DATA: [facility] 1800 OPERATION MANUAL( AUTOMATED BLOOD COUNTS AND [...] 2-19 YEARS EXCLUSIVE. K 4.9 mmol/L 3.5-5.1 [facility] ([facility] NORMAL RANGES Age WBC RBC [...] HCT IS 5% LESS SOURCE FOR DATA: [facility] 1800 OPERATION MANUAL( AUTOMATED BLOOD COUNTS AND [...] 2-19 YEARS EXCLUSIVE. CL 100.9 mmol/L 98.0-107.0 [facility] ([facility] NORMAL RANGES Age WBC [...] HCT IS 5% LESS SOURCE FOR DATA: [facility] 1800 OPERATION MANUAL( AUTOMATED BLOOD COUNTS AND [...] 2-19 YEARS EXCLUSIVE. Co2 27.2 mmol/L 22.0-29.0 [facility] ([facility] NORMAL RANGES Age WBC [...] HCT IS 5% LESS SOURCE FOR DATA: [facility] 1800 OPERATION MANUAL( AUTOMATED BLOOD COUNTS AND [...] HCT IS 5% LESS SOURCE FOR DATA: [employer] 1800 OPERATION MANUAL( AUTOMATED BLOOD COUNTS [...] HCT IS 5% LESS SOURCE FOR DATA: [facility] 1800 OPERATION MANUAL( AUTOMATED BLOOD COUNTS AND [...] YEARS EXCLUSIVE. Alb 4.0 g/dL 3.5-5.2 [facility] ([facility] NORMAL RANGES Age WBC RBC [...] HCT IS 5% LESS SOURCE FOR DATA: [facility] 1800 OPERATION MANUAL( AUTOMATED BLOOD COUNTS AND [...] HCT IS 5% LESS SOURCE FOR DATA: [facility] 1800 OPERATION MANUAL( AUTOMATED BLOOD COUNTS AND [...] HCT IS 5% LESS SOURCE FOR DATA: [facility] 1800 OPERATION MANUAL( AUTOMATED BLOOD COUNTS AND [...] 2-19 YEARS EXCLUSIVE. Alp 128.6 U/L 40-129 [facility] NORMAL RANGES Age WBC RBC [...] HCT IS 5% LESS SOURCE FOR DATA: [facility] 1800 OPERATION MANUAL( AUTOMATED BLOOD COUNTS AND [...] YEARS EXCLUSIVE. Alt (SGPT) 19 U/L 0-41 [facility] NORMAL RANGES Age WBC [...] HCT IS 5% LESS SOURCE FOR DATA: [facility] 1800 OPERATION MANUAL( AUTOMATED BLOOD COUNTS AND [...] HCT IS 5% LESS SOURCE FOR DATA: [facility] 1800 OPERATION MANUAL( AUTOMATED BLOOD COUNTS AND [...] HCT IS 5% LESS SOURCE FOR DATA: [facility] 1800 OPERATION MANUAL( AUTOMATED BLOOD COUNTS AND [...] 2-19 YEARS EXCLUSIVE. Tbili 0.42 mg/dL 0.0-1.2 [facility] ([facility] NORMAL [...] HCT IS 5% LESS SOURCE FOR DATA: [facility] 1800 OPERATION MANUAL( AUTOMATED BLOOD COUNTS AND [...] HCT IS 5% LESS SOURCE FOR DATA: [facility] 1800 OPERATION MANUAL( AUTOMATED BLOOD COUNTS AND [...] INDIVIDUALA AGED 2-19 YEARS EXCLUSIVE. eGFR Non-Afr. Burmese 24 # [facility] ([facility] [...] HCT IS 5% LESS SOURCE FOR DATA: [facility] 1800 OPERATION MANUAL( AUTOMATED BLOOD COUNTS AND [...] HCT IS 5% LESS SOURCE FOR DATA: [facility] 1800 OPERATION MANUAL( AUTOMATED BLOOD COUNTS AND [...] 2-19 YEARS EXCLUSIVE. ID Date Data Source [id number] 01/01/2021 02:06:00 PM EDT [facility] ([facility] Name Value Range Interpretation Code Description Data Julianna rce(s) Supporting Document(s) Creatine kinase [Enzymatic activity/volume] in Serum or Plasma 3 6 U/L 39-308 Below low normal [facility] ([facility] ) NORMAL RANGES Age WBC [...] HCT IS 5% LESS SOURCE FOR DATA: [facility] 1800 OPERATION MANUAL( AUTOMATED BLOOD COUNTS AND [...] 2-19 YEARS EXCLUSIVE. ID Date Data Source [id number] 01/01/2021 02:06:00 PM EDT [facility] ([facility] Name Value Range Interpretation Code Description Data Julianna rce(s) Supporting Document(s) WBC 5.9 10E3/uL 4.1-10.9 [facility] ([facility] NORMAL RANGES Age WBC [...] HCT IS 5% LESS SOURCE FOR DATA: [facility] 1800 OPERATION MANUAL( AUTOMATED BLOOD COUNTS AND [...] HCT IS 5% LESS SOURCE FOR DATA: [facility] 1800 OPERATION MANUAL( AUTOMATED BLOOD COUNTS AND [...] 2-19 YEARS EXCLUSIVE. HGB 13.3 g/dL 12.0-18.0 [facility] ([facility] NORMAL RANGES Age WBC RBC [...] HCT IS 5% LESS SOURCE FOR DATA: [facility] 1800 OPERATION MANUAL( AUTOMATED BLOOD COUNTS AND [...] 2-19 YEARS EXCLUSIVE. HCT 40.0 % 37.0-51.0 [facility] NORMAL [...] HCT IS 5% LESS SOURCE FOR DATA: [facility] 1800 OPERATION MANUAL( AUTOMATED BLOOD COUNTS AND [...] HCT IS 5% LESS SOURCE FOR DATA: [facility] 1800 OPERATION MANUAL( AUTOMATED BLOOD COUNTS AND [...] 2-19 YEARS EXCLUSIVE. MCHC 33.3 g/dL 31.0-36.0 [facility] NORMAL [...] HCT IS 5% LESS SOURCE FOR DATA: [facility] 1800 OPERATION MANUAL( AUTOMATED BLOOD COUNTS AND [...] 2-19 YEARS EXCLUSIVE. PLT 141 10E3/uL 140-440 [facility] ([facility] NORMAL RANGES Age WBC [...] HCT IS 5% LESS SOURCE FOR DATA: [facility] 1800 OPERATION MANUAL( AUTOMATED BLOOD COUNTS AND [...] 2-19 YEARS EXCLUSIVE. Neut% 67.0 % 37.0-92.0 [facility] ([facility] NORMAL [...] HCT IS 5% LESS SOURCE FOR DATA: [employer] 1800 OPERATION MANUAL( AUTOMATED BLOOD COUNTS [...] HCT IS 5% LESS SOURCE FOR DATA: [facility] 1800 OPERATION MANUAL( AUTOMATED BLOOD COUNTS AND [...] 2-19 YEARS EXCLUSIVE. Lym% 15.4 % 10.0-58.5 [facility] NORMAL RANGES Age WBC RBC [...] HCT IS 5% LESS SOURCE FOR DATA: [facility] 1800 OPERATION MANUAL( AUTOMATED BLOOD COUNTS AND [...] 2-19 YEARS EXCLUSIVE. Lym# 0.9 10E3/uL 0.6-4.1 [facility] ([facility] NORMAL RANGES Age WBC RBC HGB [...] HCT IS 5% LESS SOURCE FOR DATA: [facility] 1800 OPERATION MANUAL( AUTOMATED BLOOD COUNTS AND [...] HCT IS 5% LESS SOURCE FOR DATA: [facility] 1800 OPERATION MANUAL( AUTOMATED BLOOD COUNTS AND [...] 2-19 YEARS EXCLUSIVE. Neut# 4.0 % 2.0-7.8 [facility] ([facility] NORMAL RANGES [...] HCT IS 5% LESS SOURCE FOR DATA: [facility] 1800 OPERATION MANUAL( AUTOMATED BLOOD COUNTS AND [...] 2-19 YEARS EXCLUSIVE. MXD# 1.0 10E3/uL 0.0-1.8 [facility] ([facility] NORMAL RANGES Age WBC [...] HCT IS 5% LESS SOURCE FOR DATA: [employer] 1800 OPERATION MANUAL( AUTOMATED BLOOD COUNTS [...] HCT IS 5% LESS SOURCE FOR DATA: [facility] 1800 OPERATION MANUAL( AUTOMATED BLOOD COUNTS AND [...] 2-19 YEARS EXCLUSIVE. ID Date Data Source [id number] 09/24/2020 10:23:00 AM EDT [facility] ([facility] Name Value Range Interpretation Code Description Data Julianna rce(s) Supporting Document(s) Alb 150 mg/L [facility] ([facility] Creatinine, Urine 50 mg/dL 10-300 [facility] ([facility] A/C Ratio Laboratory test result Abnormal (applies to non -numeric results) [facility] ([facility] ID Date Data Source [id number] 09/24/2020 10:23:00 AM EDT [facility] ([facility] Name Value Range Interpretation Code Description Data Julianna rce(s) Supporting Document(s) Natriuretic peptide.B prohormone N-Terminal [Mass/volu me] in Serum or Plasma 4171 pg/mL 0-450 Above high normal [facility] ([facility] ID Date Data Source [id number] 09/24/2020 10:23:00 AM EDT [facility] ([facility]) Name Value Range Interpretation Code Description Data Julianna rce(s) Supporting Document(s) Natriuretic peptide.B prohormone N-Terminal [Mass/volu me] in Serum or Plasma 4171 [facility] (Infusion Pharmacist s [facility]) ID Date Data Source [id number] 09/24/2020 10:23:00 AM EDT [facility] (Cardi ology [facility]) Name Value Range Interpretation Code Description Data Julianna rce(s) Supporting Document(s) Triglycerides 118 [facility] ([facility]) Cholesterol 124 [facility] ([facility]) Chol/HDL Ratio 3.5 [facility] (Cardiol ogy Associates [facility]) HDL 36 [facility] (Cardiology A ssociates [facility]) Cholesterol in LDL [Mass/volume] in Serum or Plasma by calculation 64 [facility] ([facility]) ID Date Data Source [id number] 09/24/2020 10:23:00 AM EDT [facility] ([facility]) Name Value Range Interpretation Code Description Data Julianna rce(s) Supporting Document(s) Albumin [Mass/volume] in Serum or Plasma 4.0 [facility] ([facility]) Alanine aminotransferase [Enzymatic activity/volume] in Serum or Pl asma 21 [facility] ([facility]) Calcium [Mass/volume] in Serum or Plasma 9.1 [facility] ([facility]) Carbon dioxide, total [Moles/volume] in Serum or Plasma 23.0 [facility] ([facility]) Alkaline phosphatase [Enzymatic activity/volume] in Serum or Plasma 120.8 [facility] ([facility]) Chloride [Moles/volume] in Serum or Plasma 102.8 [facility] ([facility]) Potassium [Moles/volume] in Serum or Plasma 4.1 [facility] ([facility]) Sodium 139 [facility] ([facility]) Protein [Mass/volume] in Serum or Plasma 6.1 [facility] ([facility]) Aspartate aminotransferase [Enzymatic activity/volume] in Serum or Plasma 15 [facility] ([facility]) Urea nitrogen [Mass/volume] in Serum or Plasma 37 [facility] ([facility]) Glucose 113 83-110 [facility] ([facility]) Creatinine For GFR 2.9 [facility] (Car [facility]ology [facility]) ID Date Data Source [id number] 09/24/2020 10:23:00 AM EDT [facility] ([facility]) Name Value Range Interpretation Code Description Data Julianna rce(s) Supporting Document(s) White Blood Count 7.6 5.0-10.0 [facility] (Card [facility]) Platelets 163 172-450 [facility] ([facility]) Hemoglobin 13.0 [facility] ([facility]) Red Blood Count 3.85 4.00-5.40 [facility] (Cardio [facility]y [facility]) Hematocrit 38.7 [facility] ([facility]) ID Date Data Source [id number] 09/24/2020 08:11:00 PM EDT [facility] Name Value Range Interpretation Code Description Data Julianna rce(s) Supporting Document(s) BNP 4171 PG/ML 0 - 450 H [facility] ID Date Data Source [id number] 09/24/2020 10:22:00 AM EDT [facility] ([facility] [employer] [facility] Name Value Range Interpretation Code Description Data Julianna rce(s) Supporting Document(s) Thyroxine (T4) free [Mass/volume] in Serum or Plasma 1.66 ng/dL 0.75-1.54 Above high normal [facility] ([facility] ) Thyrotropin [Units/volume] in Serum or Plasma 2.284 ulU/mL 0.60-4.8 [facility] ([facility] ID Date Data Source [id number] 09/24/2020 10:21:00 AM EDT [facility] ([facility] Name Value Range Interpretation Code Description Data Julianna rce(s) Supporting Document(s) WBC 7.6 10E3/uL 4.1-10.9 [facility] ([facility] NORMAL RANGES Age WBC [...] HCT IS 5% LESS SOURCE FOR DATA: [facility] 1800 OPERATION MANUAL( AUTOMATED BLOOD COUNTS AND [...] HCT IS 5% LESS SOURCE FOR DATA: [facility] 1800 OPERATION MANUAL( AUTOMATED BLOOD COUNTS AND [...] 2-19 YEARS EXCLUSIVE. HGB 13.0 g/dL 12.0-18.0 [facility] ([facility] NORMAL RANGES Age WBC RBC [...] HCT IS 5% LESS SOURCE FOR DATA: [facility] 1800 OPERATION MANUAL( AUTOMATED BLOOD COUNTS AND [...] HCT IS 5% LESS SOURCE FOR DATA: [facility] 1800 OPERATION MANUAL( AUTOMATED BLOOD COUNTS AND [...] HCT IS 5% LESS SOURCE FOR DATA: [facility] 1800 OPERATION MANUAL( AUTOMATED BLOOD COUNTS AND [...] 2-19 YEARS EXCLUSIVE. PLT 163 10E3/uL 140-440 [facility] NORMAL RANGES Age WBC [...] HCT IS 5% LESS SOURCE FOR DATA: [facility] 1800 OPERATION MANUAL( AUTOMATED BLOOD COUNTS AND [...] HCT IS 5% LESS SOURCE FOR DATA: [facility] 1800 OPERATION MANUAL( AUTOMATED BLOOD COUNTS AND [...] 2-19 YEARS EXCLUSIVE. Lym% 17.2 % 10.0-58.5 [facility] ([facility] NORMAL [...] HCT IS 5% LESS SOURCE FOR DATA: [facility] 1800 OPERATION MANUAL( AUTOMATED BLOOD COUNTS AND [...] RDW-CV 17.5 % 11.5-14.5 Above high normal [facility] ([facility] NORMAL RANGES [...] HCT IS 5% LESS SOURCE FOR DATA: [facility] 1800 OPERATION MANUAL( AUTOMATED BLOOD COUNTS AND [...] 2-19 YEARS EXCLUSIVE. Neut% 71.1 % 37.0-92.0 [facility] ([facility] NORMAL [...] HCT IS 5% LESS SOURCE FOR DATA: [facility] 1800 OPERATION MANUAL( AUTOMATED BLOOD COUNTS AND [...] 2-19 YEARS EXCLUSIVE. Lym# 1.3 10E3/uL 0.6-4.1 [facility] ([facility] [employer] NORMAL RANGES Age WBC RBC HGB [...] HCT IS 5% LESS SOURCE FOR DATA: [employer] 1800 OPERATION MANUAL( AUTOMATED BLOOD COUNTS [...] HCT IS 5% LESS SOURCE FOR DATA: [facility] 1800 OPERATION MANUAL( AUTOMATED BLOOD COUNTS AND [...] YEARS EXCLUSIVE. Neut# 5.4 % 2.0-7.8 RG ([facility] NORMAL RANGES [...] HCT IS 5% LESS SOURCE FOR DATA: [facility] 1800 OPERATION MANUAL( AUTOMATED BLOOD COUNTS AND [...] 2-19 YEARS EXCLUSIVE. MXD# 0.9 10E3/uL 0.0-1.8 [facility] ([facility] NORMAL RANGES Age WBC [...] HCT IS 5% LESS SOURCE FOR DATA: [employer] 1800 OPERATION MANUAL( AUTOMATED BLOOD COUNTS [...] HCT IS 5% LESS SOURCE FOR DATA: [facility] 1800 OPERATION MANUAL( AUTOMATED BLOOD COUNTS AND [...] 2-19 YEARS EXCLUSIVE. ID Date Data Source [id number] 09/24/2020 10:21:00 AM EDT [facility] ([facility] Name Value Range Interpretation Code Description Data Julianna rce(s) Supporting Document(s) Chol 124 mg/dL 0-200 [facility] ([facility] NORMAL RANGES [...] HCT IS 5% LESS SOURCE FOR DATA: [employer] 1800 OPERATION MANUAL( AUTOMATED BLOOD COUNTS [...] 2-19 YEARS EXCLUSIVE. Trig 118 mg/dL 35-200 [facility] ([facility] NORMAL [...] HCT IS 5% LESS SOURCE FOR DATA: [facility] 1800 OPERATION MANUAL( AUTOMATED BLOOD COUNTS AND [...] HCT IS 5% LESS SOURCE FOR DATA: [facility] 1800 OPERATION MANUAL( AUTOMATED BLOOD COUNTS AND [...] 2-19 YEARS EXCLUSIVE. Cho/HDL Ratio 3.5 CALC [employer] ([facility] NORMAL RANGES Age WBC [...] HCT IS 5% LESS SOURCE FOR DATA: [employer] 1800 OPERATION MANUAL( AUTOMATED BLOOD COUNTS [...] LDL_C 64 Calc 75-129 Below low normal [facility] ( [facility] NORMAL [...] HCT IS 5% LESS SOURCE FOR DATA: [facility] 1800 OPERATION MANUAL( AUTOMATED BLOOD COUNTS AND [...] 2-19 YEARS EXCLUSIVE. ID Date Data Source [id number] 09/24/2020 10:21:00 AM EDT RG ([facility] Name Value Range Interpretation Code Description Data Julianna rce(s) Supporting Document(s) Creatine kinase [Enzymatic activity/volume] in Serum or Plasma 50 U /L 39-308 [facility] NORMAL RANGES [...] HCT IS 5% LESS SOURCE FOR DATA: [facility] 1800 OPERATION MANUAL( AUTOMATED BLOOD COUNTS AND [...] 2-19 YEARS EXCLUSIVE. ID Date Data Source [id number] 09/24/2020 10:21:00 AM EDT [facility] ([facility] Name Value Range Interpretation Code Description Data Julianna rce(s) Supporting Document(s) Color Laboratory test result [facility] ([facility] NORMAL RANGES Age [...] HCT IS 5% LESS SOURCE FOR DATA: [facility] 1800 OPERATION MANUAL( AUTOMATED BLOOD COUNTS AND [...] HCT IS 5% LESS SOURCE FOR DATA: [facility] 1800 OPERATION MANUAL( AUTOMATED BLOOD COUNTS AND [...] 2-19 YEARS EXCLUSIVE. Clarity Laboratory test result [facility] ([facility] NORMAL RANGES Age [...] HCT IS 5% LESS SOURCE FOR DATA: [facility] 1800 OPERATION MANUAL( AUTOMATED BLOOD COUNTS AND [...] HCT IS 5% LESS SOURCE FOR DATA: [facility] 1800 OPERATION MANUAL( AUTOMATED BLOOD COUNTS AND [...] HCT IS 5% LESS SOURCE FOR DATA: [facility] 1800 OPERATION MANUAL( AUTOMATED BLOOD COUNTS AND [...] 2-19 YEARS EXCLUSIVE. pH 5.0 # 5.0-8.0 [facility] ([facility] NORMAL [...] HCT IS 5% LESS SOURCE FOR DATA: [facility] 1800 OPERATION MANUAL( AUTOMATED BLOOD COUNTS AND [...] HCT IS 5% LESS SOURCE FOR DATA: [facility] 1800 OPERATION MANUAL( AUTOMATED BLOOD COUNTS AND [...] HCT IS 5% LESS SOURCE FOR DATA: [facility] 1800 OPERATION MANUAL( AUTOMATED BLOOD COUNTS AND [...] 2-19 YEARS EXCLUSIVE. Urobilinogen 0.2 NA 0.2-1.0 [facility] NORMAL RANGES Age WBC [...] HCT IS 5% LESS SOURCE FOR DATA: [employer] 1800 OPERATION MANUAL( AUTOMATED BLOOD COUNTS [...] HCT IS 5% LESS SOURCE FOR DATA: [facility] 1800 OPERATION MANUAL( AUTOMATED BLOOD COUNTS AND [...] HCT IS 5% LESS SOURCE FOR DATA: [facility] 1800 OPERATION MANUAL( AUTOMATED BLOOD COUNTS AND [...] Epithelial Cells - Ua Laboratory test result [facility] ([facility] NORMAL RANGES [...] HCT IS 5% LESS SOURCE FOR DATA: [facility] 1800 OPERATION MANUAL( AUTOMATED BLOOD COUNTS AND [...] result Abnormal (applies to non-numeric results) [facility] ([facility] NORMAL RANGES Age WBC [...] HCT IS 5% LESS SOURCE FOR DATA: [facility] 1800 OPERATION MANUAL( AUTOMATED BLOOD COUNTS AND [...] HCT IS 5% LESS SOURCE FOR DATA: [employer] 1800 OPERATION MANUAL( AUTOMATED BLOOD COUNTS [...] ADOLESCENTS REPRESENTS INDIVIDUALA AGED 2-19 YEARS EXCLUSIVE. [facility] Laboratory test result [facility] ([facility] NORMAL RANGES [...] HCT IS 5% LESS SOURCE FOR DATA: [facility] 1800 OPERATION MANUAL( AUTOMATED BLOOD COUNTS AND [...] 2-19 YEARS EXCLUSIVE. ID Date Data Source [id number] 09/24/2020 10:21:00 AM EDT [facility] ([facility] Name Value Range Interpretation Code Description Data Julianna rce(s) Supporting Document(s) Glu 113 mg/dL 70-110 Above high normal [facility] ([facility] NORMAL RANGES Age WBC RBC [...] HCT IS 5% LESS SOURCE FOR DATA: [facility] 1800 OPERATION MANUAL( AUTOMATED BLOOD COUNTS AND [...] BUN 37 mg/dL 8-23 Above high normal [facility] ([facility] NORMAL RANGES Age [...] HCT IS 5% LESS SOURCE FOR DATA: [employer] 1800 OPERATION MANUAL( AUTOMATED BLOOD COUNTS [...] HCT IS 5% LESS SOURCE FOR DATA: [facility] 1800 OPERATION MANUAL( AUTOMATED BLOOD COUNTS AND [...] 2-19 YEARS EXCLUSIVE. BUN/Creatinine Ratio 12.6 CALC [facility] ([facility] NORMAL RANGES Age WBC RBC [...] HCT IS 5% LESS SOURCE FOR DATA: [facility] 1800 OPERATION MANUAL( AUTOMATED BLOOD COUNTS AND [...] 2-19 YEARS EXCLUSIVE. Na 139 mmol/L 136-145 [facility] ([facility] NORMAL [...] HCT IS 5% LESS SOURCE FOR DATA: [facility] 1800 OPERATION MANUAL( AUTOMATED BLOOD COUNTS AND [...] HCT IS 5% LESS SOURCE FOR DATA: [facility] 1800 OPERATION MANUAL( AUTOMATED BLOOD COUNTS AND [...] 2-19 YEARS EXCLUSIVE. CL 102.8 mmol/L 98.0-107.0 [facility] ([facility] NORMAL RANGES Age WBC [...] 2-19 YEARS EXCLUSIVE. Co2 23.0 mmol/L 22.0-29.0 [facility] ([facility] NORMAL RANGES Age WBC [...] HCT IS 5% LESS SOURCE FOR DATA: [facility] 1800 OPERATION MANUAL( AUTOMATED BLOOD COUNTS AND [...] HCT IS 5% LESS SOURCE FOR DATA: [facility] 1800 OPERATION MANUAL( AUTOMATED BLOOD COUNTS AND [...] 2-19 YEARS EXCLUSIVE. CA 9.1 mg/dL 8.6-10.2 [facility] ([facility] NORMAL [...] HCT IS 5% LESS SOURCE FOR DATA: [facility] 1800 OPERATION MANUAL( AUTOMATED BLOOD COUNTS AND [...] HCT IS 5% LESS SOURCE FOR DATA: [facility] 1800 OPERATION MANUAL( AUTOMATED BLOOD COUNTS AND [...] EXCLUSIVE. Globulin 2.1 CALC [facility] ([facility] NORMAL RANGES Age WBC RBC [...] HCT IS 5% LESS SOURCE FOR DATA: [employer] 1800 OPERATION MANUAL( AUTOMATED BLOOD COUNTS [...] 2-19 YEARS EXCLUSIVE. A/G Ratio 1.9 CALC [facility] ([facility] NORMAL [...] HCT IS 5% LESS SOURCE FOR DATA: [facility] 1800 OPERATION MANUAL( AUTOMATED BLOOD COUNTS AND [...] YEARS EXCLUSIVE. Alt (SGPT) 21 U/L 0-41 [facility] ([facility] NORMAL RANGES [...] HCT IS 5% LESS SOURCE FOR DATA: [facility] 1800 OPERATION MANUAL( AUTOMATED BLOOD COUNTS AND [...] HCT IS 5% LESS SOURCE FOR DATA: [facility] 1800 OPERATION MANUAL( AUTOMATED BLOOD COUNTS AND [...] YEARS EXCLUSIVE. Ast (Sgot) 15 U/L 0-40 [facility] ([facility] NORMAL RANGES Age WBC RBC [...] HCT IS 5% LESS SOURCE FOR DATA: [facility] 1800 OPERATION MANUAL( AUTOMATED BLOOD COUNTS AND [...] HCT IS 5% LESS SOURCE FOR DATA: [facility] 1800 OPERATION MANUAL( AUTOMATED BLOOD COUNTS AND [...] 2-19 YEARS EXCLUSIVE. Tbili 0.49 mg/dL 0.0-1.2 [facility] NORMAL [...] HCT IS 5% LESS SOURCE FOR DATA: [facility] 1800 OPERATION MANUAL( AUTOMATED BLOOD COUNTS AND [...] HCT IS 5% LESS SOURCE FOR DATA: [employer] 1800 OPERATION MANUAL( AUTOMATED BLOOD COUNTS [...] INDIVIDUALA AGED 2-19 YEARS EXCLUSIVE. eGFR Non-Afr. Burmese 19 # [facility] ([facility] CKD-EPI ID Date Data Source [id number] 07/21/2020 12:45:00 PM EDT RG ([facility] Name Value Range Interpretation [...] AFTER 5 DAYS ID Date Data Source [id number] 07/21/2020 12:45:00 PM EDT [facility] ([facility] Name Value Range Interpretation Code Description Data Julianna rce(s) Supporting Document(s) Gram Stain Laboratory test result Normal (applies to non-n umeric results) [facility] ([facility] MANY WBCS MODERATE GRAM POSITIVE COCCI IN PAIRS AND CLUSTERS Wound Culture Laboratory test result Normal (applies t o non-numeric results) [facility] ([facility] <content>FULL REPORT IN LAB NOTES [...] CSLI standards.</content>
<content></content> ID Date Data Source [id number] 07/21/2020 12:37:00 PM EDT [facility] ([facility] Name Value Range Interpretation Code Description Data Julianna rce(s) Supporting Document(s) Erythrocyte sedimentation rate by Westergren method 56 mm/hr 0-20 Above high normal [facility] ([facility] ) ID Date Data Source [id number] 07/21/2020 12:37:00 PM EDT [facility] ([facility] Name Value Range Interpretation Code Description Data Julianna rce(s) Supporting Document(s) White Blood Count 8.1 10 4.0-10.0 Normal (applies to non-numeri c results) [facility] ([facility] Hematocrit 38.3 % 42.0-52.0 Below low normal [facility] ( [facility] Red Blood Count 3.75 10 4.30-6.10 Below low normal [facility] ([facility] Hemoglobin 12.4 g/dL 13.5-17.5 Below low normal [facility] ( [facility] Mean Corpuscular Hemoglobin 33.1 pg 27.0-33.0 Above high normal [facility] ([facility] Mean Corpuscular Volume 102.1 fl 80.0-96.0 Above high normal [facility] ([facility] Red Cell Distribution Width 15.1 % 11.5-14.5 Above high normal [facility] ([facility] Mean Corpuscular HGB Conc 32.4 g/dL 32.0-36.5 Normal (applies to non-numeric results) [facility] ([facility] ) Platelet Count, Automated 153 10 150-450 Normal (applies to non-numeric results) [facility] ([facility] ) Lymph % 15.7 % 24.0-44.0 Below low normal [facility] ( [facility] Neutrophils % 68.8 % 36.0-66.0 Above high normal [facility] ([facility] Eos % 5.8 % 0.0-3.0 Above high normal [facility] ([facility] [place] % 8.8 % 2.0-8.0 Above high normal [facility] ([facility] Immature Granulocyte % 0.4 % 0-3.0 Normal (applies to non-n umeric results) [facility] ([facility] Baso % 0.5 % 0.0-1.0 Normal (applies to non-numeric resul ts) [facility] ([facility] Nucleated Red Blood Cell % 0.0 % 0-0 Normal (applies to n on-numeric results) [facility] ([facility] Neutrophils # 5.6 10 1.5-8.5 Normal (applies to non-numeric re sults) [facility] ([facility] Lymph # 1.3 10 1.5-5.0 Below low normal [facility] ( [facility] [place] # 0.7 10 0.0-0.8 Normal (applies to non-numeric resul ts) [facility] ([facility] Eos # 0.5 10 0.0-0.5 Normal (applies to non-numeric resul ts) [facility] ([facility] Baso # 0.0 10 0.0-0.2 Normal (applies to non-numeric resul ts) [facility] ([facility] ID Date Data Source [id number] 07/21/2020 12:37:00 PM EDT [facility] ([facility] Name Value Range Interpretation Code Description Data Julianna rce(s) Supporting Document(s) Lactate [Mass/volume] in Serum or Plasma 1.4 mmol/L 0.4-2.0 Normal (applies to non-numeric results) [facility] ([facility]) Y/N query for Sepsis Lactate Rule: Y C reactive protein [Mass/volume] in Serum or Plasma by High sensitivity method 3.67 mg/dL 0.00-0.30 Above high normal [facility] ([facility] ID Date Data Source [id number] 07/21/2020 12:37:00 PM EDT [facility] ([facility] Name Value Range Interpretation Code Description Data Julianna rce(s) Supporting Document(s) Glucose, Fasting 137 mg/dL 70-100 Above high normal M EDENT ([facility] Blood Urea Nitrogen 41 mg/dL 7-18 Above high normal [facility] ([facility] Creatinine For GFR 2.44 mg/dL 0.70-1.30 Above high normal [facility] ([facility] Glomerular Filtration Rate 27.1 Below low normal [facility] ([facility] <content>Units are mL/min/1.73 m2</content>
<content></content>
<content>Chronic Kidney Disease Staging per NKF:</content>
<content></content>
<content>Stage I & II GFR >=60 Normal to Mildly Decreased</content>
<content>Stage III GFR 30- 59 Moderately Decreased</content>
<content>Stage IV GFR 15-29 Severely Decreased</content>
<content>Stage V GFR <15 Very Little GFR Left</content>
<content>ESRD GFR <15 on LUMBER HANDLER</content>
<content></content> Sodium Level 142 meq/L 136-145 Normal (applies to non-numeric res ults) [facility] ([facility] Chloride Level 108 meq/L 98-107 Above high normal MED ENT ([facility] Potassium Serum 4.0 meq/L 3.5-5.1 Normal (applies to non-numeric results) [facility] ([facility] Carbon Dioxide Level 29 meq/L 21-32 Normal (applies to non-num stephen results) [facility] ([facility] Anion Gap 5 meq/L 8-16 Below low normal [facility] ( [facility] Calcium Level 9.2 mg/dL 8.8-10.2 Normal (applies to non-numeric re sults) [facility] ([facility] ID Date Data Source [id number] 06/16/2020 08:59:00 AM EDT [facility] Name Value Range Interpretation Code Description Data Julianna rce(s) Supporting Document(s) Magnesium Level 2.02 MED[facility] (Cardio logy Associates [facility]) ID Date Data Source [id number] 06/16/2020 08:59:00 AM EDT MED[facility] (Cardi ogy Associates [facility]) Name Value Range Interpretation Code Description Data Julianna rce(s) Supporting Document(s) White Blood Count 7.7 4.3-10.9 MED[facility] (Card iology Associates [facility]) Red Blood Count 3.98 4.70-6.20 MED[facility] (Cardio logy Associates [facility]) Platelets 203 130-400 [facility] Hematocrit 40.2 39.0-50.0 MED[facility] (Cardiology Associates [facility]) Hemoglobin 13.1 13.0-17.0 MED[facility] ([facility]iology [facility]) ID Date Data Source [id number] 06/16/2020 08:59:00 AM EDT [facility] ([facility]) Name Value Range Interpretation Code Description Data Julianna rce(s) Supporting Document(s) Glucose 179 70-100 [facility] ([facility]) Creatinine 2.2 0.6-1.5 [facility] ([facility]) Blood Urea Nitrogen 40.1 5-21 [facility] ([facility]) Sodium 135.7 136-146 [facility] ([facility]) Glomerular filtration rate/1.73 sq M.pre dicted [Volume Rate/Area] in Serum or Plasma by Creatinine-based formula (MDRD) 29 [facility] ([facility]) Potassium 4.71 3.5-5.3 [facility] ([facility]) Carbon Dioxide 26.3 20-32 [facility] ([facility]) Chloride 102.4 98-110 [facility] ([facility]) Calcium 9.2 8.4-10.4 [facility] ([facility]) Phosphorus 3.2 [facility] ([facility]) Albumin 4.0 3.5-4.7 [facility] ([facility]) ID Date Data Source [id number] 03/13/2020 12:00:00 AM EST [facility] Gurjit Fish DO Patient Name: MARIA VICTORIA MACIAS [facility] Date of : [address] [address] Date of Exam: 03/13/2020#: Fax: [phone] EXAM: [...] rce(s) Supporting Document(s) ID Date Data Source [id number] 03/13/2020 09:36:00 AM EST [facility] ([facility] Name Value Range Interpretation Code Description Data Julianna rce(s) Supporting Document(s) Thyrotropin [Units/volume] in Serum or Plasma 1.814 ulU/mL 0.60-4.8 [facility] ([facility] ID Date Data Source [id number] 03/13/2020 09:36:00 AM EST MED[facility] ([facility] [...] HCT IS 5% LESS SOURCE FOR DATA: [facility] 1800 OPERATION MANUAL( AUTOMATED BLOOD COUNTS AND [...] 2-19 YEARS EXCLUSIVE. Chol 122 mg/dL 0-200 [facility] NORMAL RANGES Age WBC RBC [...] HCT IS 5% LESS SOURCE FOR DATA: [facility] 1800 OPERATION MANUAL( AUTOMATED BLOOD COUNTS AND [...] HCT IS 5% LESS SOURCE FOR DATA: [facility] 1800 OPERATION MANUAL( AUTOMATED BLOOD COUNTS AND [...] HCT IS 5% LESS SOURCE FOR DATA: [facility] 1800 OPERATION MANUAL( AUTOMATED BLOOD COUNTS AND [...] 2-19 YEARS EXCLUSIVE. Cho/HDL Ratio 3.9 CALC [facility] ([facility] NORMAL RANGES Age WBC RBC HGB [...] HCT IS 5% LESS SOURCE FOR DATA: [facility] 1800 OPERATION MANUAL( AUTOMATED BLOOD COUNTS AND [...] 2-19 YEARS EXCLUSIVE. ID Date Data Source [id number] 03/13/2020 09:36:00 AM EST MED[facility] ([facility] Name Value Range Interpretation Code Description Data Julianna rce(s) Supporting Document(s) Creatine kinase [Enzymatic activity/volume] in Serum or Plasma 3 6 U/L 39-308 Below low normal [facility] ([facility] ) NORMAL RANGES [...] HCT IS 5% LESS SOURCE FOR DATA: [facility] 1800 OPERATION MANUAL( AUTOMATED BLOOD COUNTS AND [...] 2-19 YEARS EXCLUSIVE. ID Date Data Source [id number] 03/13/2020 09:36:00 AM EST MED[facility] ([facility] Name Value Range Interpretation Code Description Data Julianna rce(s) Supporting Document(s) Glu 123 mg/dL 70-110 Above high normal [facility]JAK ([facility] NORMAL RANGES Age WBC RBC [...] HCT IS 5% LESS SOURCE FOR DATA: [facility] 1800 OPERATION MANUAL( AUTOMATED BLOOD COUNTS AND [...] HCT IS 5% LESS SOURCE FOR DATA: [facility] 1800 OPERATION MANUAL( AUTOMATED BLOOD COUNTS AND [...] HCT IS 5% LESS SOURCE FOR DATA: [facility] 1800 OPERATION MANUAL( AUTOMATED BLOOD COUNTS AND [...] 2-19 YEARS EXCLUSIVE. Na 140 mmol/L 136-145 [facility] ([facility] NORMAL RANGES Age WBC [...] HCT IS 5% LESS SOURCE FOR DATA: [facility] 1800 OPERATION MANUAL( AUTOMATED BLOOD COUNTS AND [...] 2-19 YEARS EXCLUSIVE. BUN/Creatinine Ratio 17.4 CALC [facility] ([facility] NORMAL RANGES Age [...] HCT IS 5% LESS SOURCE FOR DATA: [facility] 1800 OPERATION MANUAL( AUTOMATED BLOOD COUNTS AND [...] 2-19 YEARS EXCLUSIVE. CL 103.2 mmol/L 98.0-107.0 [facility] ([facility] NORMAL RANGES Age WBC [...] HCT IS 5% LESS SOURCE FOR DATA: [facility] 1800 OPERATION MANUAL( AUTOMATED BLOOD COUNTS AND [...] 2-19 YEARS EXCLUSIVE. K 4.3 mmol/L 3.5-5.1 [facility] ([facility] NORMAL RANGES Age WBC [...] 2-19 YEARS EXCLUSIVE. Co2 24.6 mmol/L 22.0-29.0 [employer] ([facility] NORMAL RANGES Age WBC [...] HCT IS 5% LESS SOURCE FOR DATA: [facility] 1800 OPERATION MANUAL( AUTOMATED BLOOD COUNTS AND [...] HCT IS 5% LESS SOURCE FOR DATA: [facility] 1800 OPERATION MANUAL( AUTOMATED BLOOD COUNTS AND [...] 2-19 YEARS EXCLUSIVE. CA 9.2 mg/dL 8.6-10.2 [facility] ([facility] NORMAL [...] HCT IS 5% LESS SOURCE FOR DATA: [facility] 1800 OPERATION MANUAL( AUTOMATED BLOOD COUNTS AND [...] 2-19 YEARS EXCLUSIVE. Alb 4.1 g/dL 3.5-5.2 [facility] ([facility] NORMAL [...] HCT IS 5% LESS SOURCE FOR DATA: [facility] 1800 OPERATION MANUAL( AUTOMATED BLOOD COUNTS AND [...] HCT IS 5% LESS SOURCE FOR DATA: [facility] 1800 OPERATION MANUAL( AUTOMATED BLOOD COUNTS AND [...] HCT IS 5% LESS SOURCE FOR DATA: [employer] 1800 OPERATION MANUAL( AUTOMATED BLOOD COUNTS [...] HCT IS 5% LESS SOURCE FOR DATA: [facility] 1800 OPERATION MANUAL( AUTOMATED BLOOD COUNTS AND [...] EXCLUSIVE. Alt (SGPT) 13 U/L 0-41 [facility] ([facility] NORMAL RANGES Age WBC [...] HCT IS 5% LESS SOURCE FOR DATA: [facility] 1800 OPERATION MANUAL( AUTOMATED BLOOD COUNTS AND [...] YEARS EXCLUSIVE. Ast (Sgot) 15 U/L 0-40 [facility] ([facility] NORMAL RANGES Age WBC RBC [...] HCT IS 5% LESS SOURCE FOR DATA: [facility] 1800 OPERATION MANUAL( AUTOMATED BLOOD COUNTS AND [...] HCT IS 5% LESS SOURCE FOR DATA: [facility] 1800 OPERATION MANUAL( AUTOMATED BLOOD COUNTS AND [...] HCT IS 5% LESS SOURCE FOR DATA: [facility] 1800 OPERATION MANUAL( AUTOMATED BLOOD COUNTS AND [...] 2-19 YEARS EXCLUSIVE. Anion Gap 16 mmol/L [facility] ([facility] NORMAL [...] HCT IS 5% LESS SOURCE FOR DATA: [facility] 1800 OPERATION MANUAL( AUTOMATED BLOOD COUNTS AND [...] INDIVIDUALA AGED 2-19 YEARS EXCLUSIVE. eGFR Non-Afr. Burmese 20 # [facility] ([facility] [...] HCT IS 5% LESS SOURCE FOR DATA: [facility] 1800 OPERATION MANUAL( AUTOMATED BLOOD COUNTS AND [...] YEARS EXCLUSIVE. eGFR 23 # [facility]JAK ( [facility] NORMAL RANGES Age [...] HCT IS 5% LESS SOURCE FOR DATA: [facility] 1800 OPERATION MANUAL( AUTOMATED BLOOD COUNTS AND [...] 2-19 YEARS EXCLUSIVE. ID Date Data Source [id number] 03/13/2020 09:36:00 AM EST [facility] ([facility] Name Value Range Interpretation Code Description Data Julianna rce(s) Supporting Document(s) WBC 9.4 10E3/uL 4.1-10.9 [facility] ([facility] NORMAL RANGES Age WBC [...] HCT IS 5% LESS SOURCE FOR DATA: [facility] 1800 OPERATION MANUAL( AUTOMATED BLOOD COUNTS AND [...] HCT IS 5% LESS SOURCE FOR DATA: [facility] 1800 OPERATION MANUAL( AUTOMATED BLOOD COUNTS AND [...] 2-19 YEARS EXCLUSIVE. HGB 12.4 g/dL 12.0-18.0 [facility] ([facility] NORMAL [...] MCV 101.1 fL 80.0-97.0 Above high normal [facility] ([facility] NORMAL RANGES [...] HCT IS 5% LESS SOURCE FOR DATA: [facility] 1800 OPERATION MANUAL( AUTOMATED BLOOD COUNTS AND [...] HCT IS 5% LESS SOURCE FOR DATA: [facility] 1800 OPERATION MANUAL( AUTOMATED BLOOD COUNTS AND [...] 2-19 YEARS EXCLUSIVE. MCHC 33.3 g/dL 31.0-36.0 [facility] ([facility] NORMAL [...] HCT IS 5% LESS SOURCE FOR DATA: [employer] 1800 OPERATION MANUAL( AUTOMATED BLOOD COUNTS [...] MCH 33.7 pg 26.0-32.0 Above high normal [facility] ([facility] NORMAL RANGES [...] HCT IS 5% LESS SOURCE FOR DATA: [facility] 1800 OPERATION MANUAL( AUTOMATED BLOOD COUNTS AND [...] 2-19 YEARS EXCLUSIVE. PLT 217 10E3/uL 140-440 [facility] ([facility] NORMAL RANGES Age WBC [...] HCT IS 5% LESS SOURCE FOR DATA: [facility] 1800 OPERATION MANUAL( AUTOMATED BLOOD COUNTS AND [...] RDW-CV 15.7 % 11.5-14.5 Above high normal [facility] ([facility] NORMAL RANGES [...] HCT IS 5% LESS SOURCE FOR DATA: [facility] 1800 OPERATION MANUAL( AUTOMATED BLOOD COUNTS AND [...] 2-19 YEARS EXCLUSIVE. Lym% 12.5 % 10.0-58.5 [facility] ([facility] NORMAL [...] HCT IS 5% LESS SOURCE FOR DATA: [facility] 1800 OPERATION MANUAL( AUTOMATED BLOOD COUNTS AND [...] 2-19 YEARS EXCLUSIVE. Neut% 74.6 % 37.0-92.0 [facility] ([facility] NORMAL [...] HCT IS 5% LESS SOURCE FOR DATA: [facility] 1800 OPERATION MANUAL( AUTOMATED BLOOD COUNTS AND [...] 2-19 YEARS EXCLUSIVE. MXD% 12.9 % 0.1-24.0 [facility] ([facility] NORMAL [...] HCT IS 5% LESS SOURCE FOR DATA: [facility] 1800 OPERATION MANUAL( AUTOMATED BLOOD COUNTS AND [...] YEARS EXCLUSIVE. Lym# 1.2 10E3/uL 0.6-4.1 [facility] ([facility] NORMAL RANGES Age WBC [...] HCT IS 5% LESS SOURCE FOR DATA: [facility] 1800 OPERATION MANUAL( AUTOMATED BLOOD COUNTS AND [...] YEARS EXCLUSIVE. MXD# 1.2 10E3/uL 0.0-1.8 RG ([facility] NORMAL RANGES Age [...] HCT IS 5% LESS SOURCE FOR DATA: [facility] 1800 OPERATION MANUAL( AUTOMATED BLOOD COUNTS AND [...] 2-19 YEARS EXCLUSIVE. Neut# 7.0 % 2.0-7.8 [facility] ([facility] NORMAL [...] HCT IS 5% LESS SOURCE FOR DATA: [facility] 1800 OPERATION MANUAL( AUTOMATED BLOOD COUNTS AND [...] HCT IS 5% LESS SOURCE FOR DATA: [facility] 1800 OPERATION MANUAL( AUTOMATED BLOOD COUNTS AND [...] 2-19 YEARS EXCLUSIVE. ID Date Data Source [id number] 02/12/2020 03:47:00 PM EST [facility] Name Value Range Interpretation Code Description Data Julianna rce(s) Supporting Document(s) Magnesium Level 1.81 [facility] (Cardio logy Associates [facility]) ID Date Data Source [id number] 02/12/2020 03:47:00 PM EST [facility] Name Value Range Interpretation Code Description Data Julianna rce(s) Supporting Document(s) White Blood Count 5.1 4.3-10.9 [facility] (Card iology Associates [facility]) Red Blood Count 3.38 4.70-6.20 [facility] (Cardio logy Associates [facility]) Hematocrit 35.3 39.0-50.0 [facility] (Cardiology [facility]) Hemoglobin 11.2 13.0-17.0 [facility] (Cardiology [facility]) Platelets 197 130-400 [facility] (Cardiology [facility] ID Date Data Source [id number] 02/12/2020 03:47:00 PM EST [facility] Name Value Range Interpretation Code Description Data Julianna rce(s) Supporting Document(s) Creatinine 2.0 0.6-1.5 [facility] (Cardiology [facility]) Blood Urea Nitrogen 31.9 5-21 [facility] (Ca rdiology Associates [facility]) Glucose 72 70-100 [facility] (Cardiology A ssociates [facility]) Glomerular filtration rate/1.73 sq M.pre dicted [Volume Rate/Area] in Serum or Plasma by Creatinine-based formula (MDRD) 32 [facility] (Cardiology [facility]) Potassium 3.98 3.5-5.3 [facility] (Cardiology A ssociates [facility]) Sodium 136.8 136-146 [facility] (Cardiology A ssociates [facility]) Chloride 99.8 98-110 [facility] ([facility] [place] Calcium 9.0 8.4-10.4 [facility] ([facility] Carbon Dioxide 31.0 20-32 [facility] ([facility]) Phosphorus 3.5 [facility] ([facility]) Albumin 3.5 3.5-4.7 [facility] ([facility] [place]) ID Date Data Source [id number] 01/13/2020 06:56:00 AM EST [facility] ([facility] Name Value Range Interpretation Code Description Data Julianna rce(s) Supporting Document(s) Coronavirus 2019 Nasopharygeal Laboratory test result [facility] ([facility] Laboratory test finding (navigational concept) Laboratory test r esult Normal (applies to non-numeric results) [facility] ([facility] A false negative result [...] pathogens. DISCLAIMER: Testing was performed using the [employer] SARS-CoV-2 test. This test was developed and its performance characteristics determined by [employer]. This test has not been FDA cleared [...] or revoked sooner. ID Date Data Source [id number] 01/13/2020 05:20:00 AM EST [facility] ([facility] Name Value Range Interpretation Code Description Data Julianna rce(s) Supporting Document(s) Laboratory test finding (navigational concept) 0.01 ng/mL 0 .00-0.08 Normal (applies to non-numeric results) [facility] ([facility] Troponin I.cardiac [Mass/volume] in Serum or Plasma Laboratory test result [facility] ([facility] ID Date Data Source [id number] 01/13/2020 05:03:00 AM EST [facility] ([facility] Name Value Range Interpretation Code Description Data Julianna rce(s) Supporting Document(s) Natriuretic peptide.B prohormone N-Terminal [Mass/volu me] in Serum or Plasma 4334 pg/mL Above high normal [facility] ([facility] Lactate [Mass/volume] in Serum or Plasma 0.9 mmol/L 0.4-2.0 Normal (applies to non-numeric results) [facility] ([facility]) Y/N query for Sepsis Lactate Rule: Y ID Date Data Source [id number] 01/13/2020 05:03:00 AM EST [facility] ([facility] Name Value Range Interpretation Code Description Data Julianan rce(s) Supporting Document(s) Glucose, Fasting 105 mg/dL 70-100 Above high normal M EDENT ([facility] Blood Urea Nitrogen 53 mg/dL 7-18 Above high normal [facility] ([facility] Creatinine For GFR 2.67 mg/dL 0.70-1.30 Above high normal [facility] ([facility] Glomerular Filtration Rate 24.4 Below low normal [facility] ([facility] <content>Units are mL/min/1.73 m2</content>
<content></content>
<content>Chronic Kidney Disease Staging per NKF:</content>
<content></content>
<content>Stage I & II GFR >=60 Normal to Mildly Decreased</content>
<content>Stage III GFR 30- 59 Moderately Decreased</content>
<content>Stage IV GFR 15-29 Severely Decreased</content>
<content>Stage V GFR <15 Very Little GFR Left</content>
<content>ESRD GFR <15 on LUMBER HANDLER</content>
<content></content> Potassium Serum 5.1 meq/L 3.5-5.1 Normal (applies to non-numeric results) [facility] ([facility] Sodium Level 143 meq/L 136-145 Normal (applies to non-numeric res ults) [facility] ([facility] Carbon Dioxide Level 24 meq/L 21-32 Normal (applies to non-num stephen results) [facility] ([facility] Chloride Level 113 meq/L 98-107 Above high normal MED E[facility] ([facility] Anion Gap 6 meq/L 8-16 Below low normal [facility] ( [facility] Calcium Level 8.6 mg/dL 8.8-10.2 Below low normal MEDEN T ([facility] ID Date Data Source [id number] 01/13/2020 05:03:00 AM EST [facility] ([facility] Name Value Range Interpretation Code Description Data Julianna rce(s) Supporting Document(s) Ast/Sgot 28 U/L 7-37 Normal (applies to non-numeric resul ts) [facility] ([facility] Alt/SGPT 29 U/L 12-78 Normal (applies to non-numeric resul ts) [facility] ([facility] Alkaline Phosphatase 178 U/L 45-117 Above high normal [facility] ([facility] Bilirubin,Total 0.3 mg/dL 0.2-1.0 Normal (applies to non-numeric results) [facility] ([facility] Total Protein 6.8 GM/DL 6.4-8.2 Normal (applies to non-numeric re sults) [facility] ([facility] Bilirubin,Direct 0.1 mg/dL 0.0-0.2 Normal (applies to non-numeric results) [facility] ([facility] Albumin/Globulin Ratio 1.1 Normal (applies to non-n umeric results) [facility] ([facility] Albumin 3.5 GM/DL 3.2-5.2 Normal (applies to non-numeric resul ts) [facility] ([facility] ID Date Data Source [id number] 01/13/2020 05:03:00 AM EST [facility] ([facility] Name Value Range Interpretation Code Description Data Julianna rce(s) Supporting Document(s) White Blood Count 9.4 10 4.0-10.0 Normal (applies to non-numeri c results) [facility] ([facility] Red Blood Count 3.69 10 4.30-6.10 Below low normal MED E[facility] ([facility] Hemoglobin 12.0 g/dL 13.5-17.5 Below low normal [facility] ( [facility] Hematocrit 38.1 % 42.0-52.0 Below low normal [facility] ( [facility] Mean Corpuscular Volume 103.3 fl 80.0-96.0 Above high normal [facility] ([facility] Mean Corpuscular Hemoglobin 32.5 pg 27.0-33.0 Norm al (applies to non-numeric results) [facility] ([facility] ) Mean Corpuscular HGB Conc 31.5 g/dL 32.0-36.5 Below low normal [facility] ([facility] Red Cell Distribution Width 15.1 % 11.5-14.5 Above high normal [facility] ([facility] Platelet Count, Automated 173 10 150-450 Normal (applies to non-numeric results) [facility] ([facility] ) Neutrophils % 70.6 % 36.0-66.0 Above high normal MEDE NT ([facility] Lymph % 13.0 % 24.0-44.0 Below low normal [facility] ( [facility] [place] % 5.7 % 0.0-5.0 Above high normal [facility] ([facility] Eos % 9.9 % 0.0-3.0 Above high normal [facility] ([facility] Baso % 0.5 % 0.0-1.0 Normal (applies to non-numeric resul ts) [facility] ([facility] Immature Granulocyte % 0.3 % 0-3.0 Normal (applies to non-n umeric results) [facility] ([facility] Nucleated Red Blood Cell % 0.0 % 0-0 Normal (applies to n on-numeric results) [facility] ([facility] Neutrophils # 6.6 10 1.5-8.5 Normal (applies to non-numeric re sults) [facility] ([facility] [place] # 0.5 10 0.0-0.8 Normal (applies to non-numeric resul ts) [facility] ([facility] Lymph # 1.2 10 1.5-5.0 Below low normal [facility] ( [facility] Baso # 0.1 10 0.0-0.2 Normal (applies to non-numeric resul ts) [facility] ([facility] Eos # 0.9 10 0.0-0.5 Above high normal [facility] ([facility] ID Date Data Source [id number] 12/12/2019 10:47:00 AM EDT [facility] (Cardi [facility]logy [facility]) Name Value Range Interpretation Code Description Data Julianna rce(s) Supporting Document(s) Magnesium Level 2.01 [facility] (Cardio logy Associates [facility]) ID Date Data Source [id number] 12/12/2019 10:47:00 AM EDT [facility] (Cardi ology Associates [facility]) Name Value Range Interpretation Code Description Data Julianna rce(s) Supporting Document(s) White Blood Count 6.3 4.3-10.9 [facility] ([facility]) Red Blood Count 3.41 4.70-6.20 [facility] (Cardio logy Associates [facility]) Platelets 195 130-400 MEDENT ([facility]) Hematocrit 35.7 39.0-50.0 MEDENT ([facility]) Hemoglobin 11.9 13.0-17.0 MEDENT ([facility]) ID Date Data Source [id number] 12/12/2019 10:47:00 AM EDT MEDENT (Cardi ology [...] completed Patient is a former smoker MEDENT ([facility], ) Smoking 07/31/2020 12:00:00 AM EDT Former Smoker completed Former Smoker eCW1 ([facility]) Smoking 07/24/2020 12:00:00 AM EDT Former Smoker completed Former Smoker eCW1 ([facility]) Smoking 06/24/2020 12:00:00 AM EDT Patient is a former smoker completed Patient is a former smoker MEDENT ([facility] ) Vital Signs ID Date Data Source UNK Name Value Range Interpretation Code Description Data Source(s) Systolic blood pressure 122 mm[Hg] 122 mm[Hg] M EDENT ([facility] [place] body weight 166 [lb_av] 166 [lb_av] MEDEN T ([facility] Diastolic blood pressure 60 mm[Hg] 60 mm[Hg] MEDENT ([facility] Body temperature 97.3 [degF] 97.3 [degF] MEDENT ([facility] Heart rate 64 /min 64 /min MEDENT ([facility] Respiratory rate 18 /min 18 /min MEDENT ( [facility] Body height 70 [in_i] 70 [in_i] MEDENT ([facility] 5'10" Body weight 183.00 [lb_av] 183.00 [lb_av] MEDEN T ([facility] Body mass index (BMI) [Ratio] 26.3 kg/m2 26.3 k g/m2 MEDENT ([facility] Oxygen saturation in Arterial blood by Pulse oximetry 100 % 100 % MEDENT ([facility] Systolic blood pressure 118 mm[Hg] 118 mm[Hg] M EDENT ([facility], ) Diastolic blood pressure 70 mm[Hg] 70 mm[Hg] MEDENT ([facility], ) Heart rate 74 /min 74 /min MEDENT ([facility], ) Oxygen saturation in Arterial blood by Pulse oximetry 95 % 95 % [facility] ([facility], ) Room Air Body height 69 [in_i] 69 [in_i] MEDENT ([facility], ) 5'9" [place] body weight 160 [lb_av] 160 [lb_av] MEDEN T ([facility], ) Body height 70 [in_i] 70 [in_i] MEDENT ([facility] 5'10" Body mass index (BMI) [Ratio] 27.4 kg/m2 27.4 k g/m2 MEDENT ([facility] Oxygen saturation in Arterial blood by Pulse oximetry 99 % 99 % MEDENT ([facility] Body temperature 97.5 [degF] 97.5 [degF] MEDENT ([facility] Heart rate 90 [...] [lb_av] MEDEN T ([facility] [place] body weight 166 [lb_av] 166 [lb_av] MEDEN T ([facility] Body weight 185 [lb_av] 185 [lb_av] eCW1 ([facility]) Body weight kg eCW1 ([facility]) Body height [in_i] eCW1 ([facility]) Body mass index (BMI) [Ratio] 26.54 kg/m2 26.54 kg/m2 eCW1 ([facility]) Heart rate 47 /min 47 /min eCW1 ([facility]) Respiratory rate 18 /min 18 /min eCW1 ([facility]) Body temperature 97 [degF] 97 [degF] eCW1 ([facility]) Systolic blood pressure 136 mm[Hg] 136 mm[Hg] e CW1 ([facility]) Diastolic blood pressure 77 mm[Hg] 77 mm[Hg] eCW1 ([facility]) Systolic blood pressure 176 mm[Hg] 176 mm[Hg] e CW1 ([facility]) Body weight 185 [lb_av] 185 [lb_av] eCW1 ([facility]) Diastolic blood pressure 86 mm[Hg] 86 mm[Hg] eCW1 ([facility]) Body height [in_i] eCW1 ([facility]) Body mass index (BMI) [Ratio] 26.54 kg/m2 26.54 kg/m2 eCW1 ([facility]) Heart rate 79 /min 79 /min eCW1 ([facility]) Respiratory rate 18 /min 18 /min eCW1 ([facility]) Body temperature 98.3 [degF] 98.3 [degF] eCW1 ( [facility]) Systolic blood pressure 134 mm[Hg] 134 mm[Hg] M EDENT ([facility] Respiratory rate 18 /min 18 /min MEDENT ( [facility] Diastolic blood pressure 84 mm[Hg] 84 mm[Hg] MEDENT ([facility] Body mass index (BMI) [Ratio] 25.5 kg/m2 25.5 k g/m2 MEDENT ([facility] Heart rate 54 /min 54 /min MEDENT ([facility] [place] body weight 166 [lb_av] 166 [lb_av] MEDEN T ([facility] Oxygen saturation in Arterial blood by Pulse oximetry 94 % 94 % MEDENT ([facility] Body temperature 96.9 [degF] 96.9 [degF] MEDENT ([facility] Body height 70 [in_i] 70 [in_i] MEDENT ([facility] 5'10" Body weight 178.00 [lb_av] 178.00 [lb_av] MEDEN T ([facility] Body temperature 97.3 [degF] 97.3 [degF] MEDENT ([facility] Heart rate 48 /min 48 /min MEDENT ([facility] Body weight 179.00 [lb_av] 179.00 [lb_av] MEDEN T ([facility] Body height 70 [in_i] 70 [in_i] MEDENT ([facility] 5'10" Respiratory rate 16 /min 16 /min MEDENT ( [facility] [place] body weight 166 [lb_av] 166 [lb_av] MEDEN [...] by Pulse oximetry 98 % 98 % [facility] ([facility], ) Room Air Body temperature 97.3 [degF] 97.3 [degF] [facility] ([facility]) Body height 69 [in_i] 69 [in_i] [facility] ([facility]) 5'9" [place] body weight 160 [lb_av] 160 [lb_av] MEDEN T ([facility]) Systolic blood pressure 126 mm[Hg] 126 mm[Hg] M EDENT ([facility]) Diastolic blood pressure 76 mm[Hg] 76 mm[Hg] MEDENT ([facility]) Heart rate 67 /min 67 /min [facility] ([facility]) Oxygen saturation in Arterial blood by Pulse oximetry 98 % 98 % [facility] ([facility]) Room Air Body temperature 97.3 [degF] 97.3 [degF] [facility] ([facility]) Body height 69 [in_i] 69 [in_i] [facility] ([facility]) 5'9" [place] body weight 160 [lb_av] 160 [lb_av] MEDEN T ([facility]) Diastolic blood pressure 84 mm[Hg] 84 mm[Hg] MEDENT ([facility] Body temperature 98.4 [degF] 98.4 [degF] MEDENT ([facility] Heart rate 52 /min 52 /min MED[facility] ([facility] Respiratory rate 16 /min 16 /min MEDENT ( [facility] [place] body weight 166 [lb_av] 166 [lb_av] MEDEN T ([facility] Oxygen saturation in Arterial blood by Pulse oximetry 97 % 97 % MEDENT ([facility] Systolic blood pressure 134 mm[Hg] 134 mm[Hg] M EDENT ([facility] Body height 70 [in_i] 70 [in_i] MEDENT ([facility] 5'10" Body weight 187.00 [lb_av] 187.00 [lb_av] MEDEN T ([facility] Body mass index (BMI) [Ratio] 26.8 kg/m2 26.8 k g/m2 MED[facility] ([facility] Heart rate 52 /min 52 /min MED[facility] ([facility] Respiratory rate 18 /min 18 /min MEDENT ( [facility] Body height 70 [in_i] 70 [in_i] MEDENT ([facility] 5'10" Body weight 192.00 [lb_av] 192.00 [lb_av] MEDEN T ([facility] [place] body weight 166 [lb_av] 166 [lb_av] MEDEN [...] [lb_av] MEDEN T ([facility] [place] body weight 166 [lb_av] 166 [lb_av] MEDEN [...] [lb_av] MEDEN T ([facility] [place] body weight 166 [lb_av] 166 [lb_av] MEDEN [...] l Cream 07/24/2020 12:00:00 AM EDT eCW1 ([facility])
--- NOTE | 2021-01-24 22:58 | REPVR ---
PROCEDURE INFORMATION: Exam: CT Head Without Contrast Exam date and time: 01/24/2021 10:22 PM Age: 85 years old Clinical indication: Injury or trauma; Fall; Blunt trauma (contusions or hematomas); Consciousness not specified; Additional info: Presyncope, recent fall and hitting head, on eliquis, HX TIA TECHNIQUE: Imaging protocol: Computed tomography of the head without contrast. Radiation optimization: All CT scans at this facility use at least one of these dose optimization techniques: automated exposure control; mA and/or kV adjustment per patient size (includes targeted exams where dose is matched to clinical indication); or iterative reconstruction. COMPARISON: CT Head without contrast 11/30/2019 3:02 PM FINDINGS: Brain: There is no CT evidence for an acute large vessel territorial infarct. 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 No acute intracranial hemorrhage is seen. No mass effect, midline shift, or herniation is noted. There are mild non-specific foci of low attenuation in the periventricular white matter, which are likely the sequela of chronic small vessel ischemic injury and are similar in appearance compared to the prior CT head on 11/30/2019. Incidental note is made of mild benign enlargement of the subarachnoid spaces over the cerebral convexities, which is similar in appearance compared to the prior CT head on 11/30/2019. Cerebral ventricles: The ventricles are mildly dilated in proportion to the sulci, which is compatible with mild generalized cerebral and cerebellar volume loss that is similar in appearance compared to the prior CT head on 11/30/2019. Paranasal sinuses: The imaged portions of the sinuses are well aerated. No air-fluid levels are noted in the sinuses. Mastoid air cells: There is minimal opacification of the right mastoid air cells. The left mastoid air cells are well aerated. Orbital cavity: Incidental note is made of bilateral lens implants. Bones/joints: The skull is intact. No suspicious osteolytic or osteoblastic lesion. Soft tissues: Unremarkable. No soft tissue fluid collection. IMPRESSION: 1. Intact skull. No acute intracranial hemorrhage or acute intracranial abnormality. 2. 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 3. 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 Electronically signed by: Gurjit Gavin On 01/24/2021 22:58:01 PM
[2021-01-24 23:01] LABS: INR 1.13; PROTHROMBIN TIME 14.9 SECONDS (12.7-14.5)
[2021-01-24 23:02] LABS: PARTIAL THROMBOPLASTIN TIME 31.3 SECONDS (25.9-37.0)
[2021-01-24 23:04] LABS: D-DIMER QUANT 1175.81 ng/ml (<500)
[2021-01-25] VITALS (8 sets, daily range): BP systolic 88–153; BP diastolic 54–83; O2SAT 98
[2021-01-25] MEDS: allopurinoL 300 MG TAB PO SCH ×2 (00:32→21:16)
[2021-01-25] MEDS: TAMSULOSIN 0.4 MG CAP PO SCH ×2 (00:32→21:16)
[2021-01-25] MEDS: HumaLOG INSULIN (NovoLOG) PER UNIT SC SCH ×5 (00:33→21:00)
[2021-01-25] MEDS: CARVedilol 12.5 MG TAB PO SCH ×2 (00:33→08:38)
[2021-01-25] MEDS: VITAMIN B COMPLEX/VIT C CAP PO SCH ×2 (00:34→16:53)
[2021-01-25] MEDS: COMBIVENT RESPIMAT 100-20MCG INHALER 4GM INH SCH (00:34)
[2021-01-25] MEDS: SYMBICORT 160/4.5MCG INHALER 6GM INH SCH ×3 (00:34→19:50)
[2021-01-25] MEDS ORDERED: NS 1,000 ML IV SCH ×2 (02:00→14:50)
[2021-01-25] MEDS: LEVOTHYROXINE 25MCG TABLET (0.025MG) PO SCH (05:41)
--- NOTE | 2021-01-25 07:18 | ED PDOC ---
Post-Departure Follow-Up radiology porert faxed to Gisella Farrell MD Jan 25, 2021 07:18
[2021-01-25] MEDS ORDERED: HEPARIN SOD (PORCINE) 5000UNITS/ML 1ML VIAL/SYRINGE IV PRN (08:00)
[2021-01-25] MEDS ORDERED: HEPARIN DRIP 25,000 UNITS in IV 1 EA IV SCH (08:00)
[2021-01-25] MEDS: MULTIVITAMINS/MINERALS THERAP 1 TAB PO SCH (08:39)
[2021-01-25] MEDS: ASPIRIN 81MG ENTERIC TABLET PO SCH (08:39)
[2021-01-25] MEDS: FERROUS GLUCONATE 324 MG TAB PO SCH (08:39)
[2021-01-25] MEDS: ATORVASTATIN 20 MG TAB PO SCH (08:39)
[2021-01-25] MEDS ORDERED: TORSEMIDE 10 MG TABLET PO SCH (09:00)
[2021-01-25 10:25] LABS: BASO % 0.3 % (0.0-1.0); EOS # 0.5 10^3/uL (0.0-0.5); EOS % 5.3 % (0.0-3.0); HEMATOCRIT 34.7 % (42.0-52.0); HEMOGLOBIN 11.4 g/dl (13.5-17.5); LYMPH # 1.2 10^3/uL (1.5-5.0); LYMPH % 13.2 % (24.0-44.0); MEAN CORPUSCULAR HEMOGLOBIN 33.5 pg (27.0-33.0); MEAN CORPUSCULAR HGB CONC 32.9 g/dl (32.0-36.5); MEAN CORPUSCULAR VOLUME 102.1 fl (80.0-96.0); MONO # 0.6 10^3/uL (0.0-0.8); MONO % 6.4 % (2.0-8.0); NEUTROPHILS # 6.5 10^3/uL (1.5-8.5); NEUTROPHILS % 74.5 % (36.0-66.0); PLATELET COUNT, AUTOMATED 143 10^3/uL (150-450); WHITE BLOOD COUNT 8.7 10^3/uL (4.0-10.0)
[2021-01-25 10:52] LABS: CALCIUM LEVEL 8.6 MG/DL (8.8-10.2); CREATININE FOR GFR 2.4 MG/DL (0.70-1.30); GLOMERULAR FILTRATION RATE 27.5 (>35); POTASSIUM SERUM 3.9 MEQ/L (3.5-5.1)
--- NOTE | 2021-01-25 15:23 | IPNPDOC ---
Date Seen The patient was seen on 01/25/21. Progress Note SUBJECTIVE: Pos orthostatics, symptomatic with incr lightheadedness and unsteadiness on feet. Stopped torsemide and BB with lower than normal BPs. Pain in center of right buttocks, small area of bruising. Denies chest pain, increased SOB, fevers, chills, n/v/d. OBJECTIVE: VITAL SIGNS: Please see below PHYSICAL EXAMINATION: CONSTITUTIONAL: No acute distress, sitting up at bedside, AAO x 3 EYES: PERRLA, EOM intact HENT, MOUTH: Normocephalic, atraumatic, moist mucous membranes NECK: SUPPLE, no JVD, no lymphadenopathy, no carotid bruit CV: Regular rate and rhythm, S1S2 normal, no murmurs/rubs/gallops RESPIRATORY: Clear to auscultation bilaterally, no rales/rhonchi/wheezes GI: BS positive in 4 quadrants, soft, nontender, nondistended, no rebound or guarding, no organomegaly : Deferred MUSCULOSKELETAL: Normal ROM. No cyanosis, clubbing, swelling, joint deformity, extremity edema INTEGUMENTARY: Small bruise on right buttocks, Intact, no rashes, no lesions, no erythema NEUROLOGIC: Cranial Nerves II-XII are intact, no focal deficits PSYCHIATRIC: Mood and affect are normal CURRENT MEDICATIONS: Please see below LABORATORY DATA: Please see below IMAGING: V/Q ORDERED for 01/26/21 Echocardiogram 01/14/20: 1. Borderline concentric left ventricular hypertrophy. Normal regional left ventricular (LV) wall motion and wall thickening. Normal left ventricular (LV) systolic function. Left ventricular ejection fraction (LVEF) 50% by visual estimate. Left ventricular (LV) diastolic function may not be adequately determined due to presence of atrial fibrillation. 2. Suggestive of moderate elevation of estimated right ventricle systolic pressure (40 mmHg). Normal right ventricle size and systolic function. Moderate right atrial dilatation. Moderate tricuspid regurgitation. 3. Moderate left atrial dilatation. 4. Moderate aortic valve sclerosis of a 3-cuspid aortic valve. No aortic stenosis or regurgitation. 5. Moderate mitral annular calcification. Very mild mitral regurgitation. No mitral stenosis. 6. No pericardial effusion. 7. Right pleural effusion. ASSESSMENT: PLAN: Presyncope 2/2 to orthostatics (r/o cause incl neuro vs. cardiac vs. circulatory such as pulmonary embolus)vs. dehydration -Remains orthostatic today, symptomatic with movement -Started on heparin gtt due to d dimer elevated, desaturations with movement- r/o PE -CT no acute concerning findings -Trop neg -Echo ordered -Stopped BB and torsemide today with lower than normal BP -C/w tele, IVFs, neuro checks, PT/OT, heparin gtt. Careful not to fluid overload with hx of CHF and ? PE Hypoxia with exertion, r/o PE -Not HF or COPD related, as these episodes of hypoxia are related to lightheadedness, not wheezing or incr crackles or s/s of fluid overload -Monitoring closely while on heparin gtt -WELLs: mod risk -Orthostatics + -V/Q scan 01/26/21 HFpEF without exacerbation -Trop neg, BNP >2K ;however, chronically elevated and this is the lowest its been in quite some time -Echo 2019 above -Monitor fluid balance, I's and O's, urinary output -Plan for hydration so closely monitor for s/s of fluid overload. -Stopped BB and torsemide for now COPD without exacerbation -Currently on RA and not suspecting a factor in acute hypoxia -C/w home meds A. fib, rate controlled Telemetry monitoring Continue home medication with parameters for blood pressure -Holding BB, holding Eliquis while on heparin gtt CKD Stage III -Cr at baseline range 2.4-2.7 -Avoid nephrotoxins -Daily labs Right gluteal pain 2/2 to slip to ground prior to admission -Small bruise, possible muscle strain. -Tylenol PRN, PT/OT Poor p.o. intake -Nutritional consult appreciated Deconditioning and frail elder -Fall precautions -PT/OT History of GEETA -Does not use CPAP at home Right middle lobe nodule 4 mm -Incidental CT finding -Recommendations for CT chest at 12-month mare for monitoring. -Remind patient for interval follow-up upon discharge DVT PX -heparin gtt DISPOSITION: Changed from observation to inpatient status. PT/OT to see. VS, I&O, 24H, Fishbone Vital Signs/I&O Vital Signs Date Time Temp Pulse Resp B/P (MAP) Pulse Ox O2 Delivery O2 Flow Rate FiO2 01/25/21 14:00 98.1 87 18 88/54 (65) 97 Room Air I&O- Last 24 Hours up to 6 AM 01/25/21 05:59 Output Total 150 ml Balance -150 ml Laboratory Data 24H LABS Laboratory Tests 2 01/24/21 17:06: Immature Granulocyte % (Auto) 0.3, Neutrophils (%) (Auto) 72.5H, Lymphocytes (%) (Auto) 14.0L, Monocytes (%) (Auto) 8.1H, Eosinophils (%) (Auto) 4.7H, Basophils (%) (Auto) 0.4, Neutrophils # (Auto) 6.7, Lymphocytes # (Auto) 1.3L, Monocytes # (Auto) 0.8, Eosinophils # (Auto) 0.4, Basophils # (Auto) 0.0, Nucleated Red Blood Cells % (auto) 0.0, Anion Gap 7L, Glomerular Filtration Rate 27.4L, Calcium Level 9.0, Magnesium Level 2.2, Total Creatine Kinase 53, Creatine Kinase MB 2.1, Creatine Kinase MB Relative Index 3.96, Troponin I < 0.02, Thyroid Stimulating Hormone (TSH) 1.630, Free Thyroxine 1.32 01/24/21 17:45: Blood Gas Bicarbonate Standard 23.9, Venous Blood pH 7.354, Venous Blood Partial Pressure CO2 48.5, Venous Blood Partial Pressure O2 30.3, Venous Blood Total Carbon Dioxide 27.9, Venous Blood HCO3 26.4, Venous Blood Oxygen Saturation 56.9L, Venous Blood Base Excess 0.3 01/24/21 19:00: Coronavirus (COVID-19)(PCR) NEGATIVE, Influenza Type A (RT-PCR) NEGATIVE, Influenza Type B (RT-PCR) NEGATIVE, Respiratory Syncytial Virus (PCR) NEGATIVE 01/24/21 22:46: Prothrombin Time 14.9H, Prothromb Time International Ratio 1.13, Activated Partial Thromboplast Time 31.3, D-Dimer, Quantitative 1175.81H 01/25/21 00:10: Bedside Glucose (Misc Panel) 104 01/25/21 10:00: Immature Granulocyte % (Auto) 0.3, Neutrophils (%) (Auto) 74.5H, Lymphocytes (%) (Auto) 13.2L, Monocytes (%) (Auto) 6.4, Eosinophils (%) (Auto) 5.3H, Basophils (%) (Auto) 0.3, Neutrophils # (Auto) 6.5, Lymphocytes # (Auto) 1.2L, Monocytes # (Auto) 0.6, Eosinophils # (Auto) 0.5, Basophils # (Auto) 0.0, Nucleated Red Blood Cells % (auto) 0.0, Activated Partial Thromboplast Time 45.0H, Anion Gap 8, Glomerular Filtration Rate 27.5L, Calcium Level 8.6L, MW-Fvz-S-Type Natr iuretic Peptide 2372H 01/25/21 11:23: Bedside Glucose (Misc Panel) 207H 01/25/21 14:05: CBC/BMP Laboratory Tests 01/24/21 17:06 01/25/21 10:00 Ange Calloway MD Jan 25, 2021 15:22
[2021-01-25] MEDS: ACETAMINOPHEN TAB 650MG DOSE (2X325MG) PO PRN (22:34)
[2021-01-26] VITALS (8 sets, daily range): BP systolic 90–140; BP diastolic 52–85; O2SAT 95
[2021-01-26] MEDS: LEVOTHYROXINE 25MCG TABLET (0.025MG) PO SCH (05:34)
[2021-01-26 05:46] LABS: BASO % 0.3 % (0.0-1.0); EOS # 0.6 10^3/uL (0.0-0.5); EOS % 6.2 % (0.0-3.0); HEMATOCRIT 29.6 % (42.0-52.0); HEMOGLOBIN 9.8 g/dl (13.5-17.5); LYMPH # 1.4 10^3/uL (1.5-5.0); LYMPH % 15.8 % (24.0-44.0); MEAN CORPUSCULAR HEMOGLOBIN 33.4 pg (27.0-33.0); MEAN CORPUSCULAR HGB CONC 33.1 g/dl (32.0-36.5); MONO # 0.8 10^3/uL (0.0-0.8); MONO % 9.2 % (2.0-8.0); NEUTROPHILS # 6.2 10^3/uL (1.5-8.5); NEUTROPHILS % 68.1 % (36.0-66.0); PLATELET COUNT, AUTOMATED 139 10^3/uL (150-450); RED BLOOD COUNT 2.93 10^6/uL (4.30-6.10); WHITE BLOOD COUNT 9.1 10^3/uL (4.0-10.0)
[2021-01-26 06:07] LABS: CALCIUM LEVEL 8.6 MG/DL (8.8-10.2); CREATININE FOR GFR 2.51 MG/DL (0.70-1.30); GLOMERULAR FILTRATION RATE 26.1 (>35); POTASSIUM SERUM 3.8 MEQ/L (3.5-5.1)
[2021-01-26] MEDS: NS 1,000 ML IV SCH ×2 (06:42→16:44)
[2021-01-26] MEDS: SYMBICORT 160/4.5MCG INHALER 6GM INH SCH ×2 (07:23→20:14)
[2021-01-26] MEDS: HumaLOG INSULIN (NovoLOG) PER UNIT SC SCH ×5 (07:30→21:00)
[2021-01-26] MEDS: ATORVASTATIN 20 MG TAB PO SCH (08:50)
[2021-01-26] MEDS: MULTIVITAMINS/MINERALS THERAP 1 TAB PO SCH (08:50)
[2021-01-26] MEDS: FERROUS GLUCONATE 324 MG TAB PO SCH (08:50)
[2021-01-26] MEDS: ASPIRIN 81MG ENTERIC TABLET PO SCH (08:50)
[2021-01-26] MEDS ORDERED: TORSEMIDE 10 MG TABLET PO SCH (09:00)
[2021-01-26] MEDS ORDERED: MIRALAX *UNIT DOSE* 17GM PACKET PO PRN (11:00)
--- NOTE | 2021-01-26 11:18 | REP ---
INDICATION: r/o PE. COMPARISON: None. The patient has not had a recent plain film examination of the chest. The last two view chest was obtained 03/13/[address] of the chest of 01/24/2021 showed scattered asymmetric parenchymal densities. All interested parties should review that CT report. TECHNIQUE/RADIOTRACER AND DOSE: After the intravenous administration of 5.5 mCi of technetium 99 M MAA a perfusion lung study was performed. After the and elation of 1 mCi of technetium 99 M DTPA aerosol a ventilation lung study was performed. FINDINGS: There is clumping of the radiotracer throughout the tracheobronchial system on the ventilation portion of the exam. There are multiple ventilation perfusion matching defects. IMPRESSION: Technical limitations and findings as described above consistent with intermediate probability for PE. Consider CT angiography of the pulmonary arteries. <Electronically signed by Hardy Thakur > 01/26/21 1112
[2021-01-26] MEDS: DOCUSATE SODIUM 100MG CAPSULE PO SCH ×2 (11:47→21:30)
[2021-01-26] MEDS: VITAMIN B COMPLEX/VIT C CAP PO SCH (16:44)
[2021-01-26] MEDS: ACETAMINOPHEN TAB 650MG DOSE (2X325MG) PO PRN (16:45)
--- NOTE | 2021-01-26 20:23 | IPNPDOC ---
Date Seen The patient was seen on 01/26/21. Progress Note SUBJECTIVE: Intermediate probability for PE on V/Q scan, stopped heparin gtt, started on eliquis BID. Still symptomatic with incr lightheadedness and unsteadiness on feet, + orthostatics. Denies chest pain, increased SOB, fevers, chills, n/v/d. OBJECTIVE: VITAL SIGNS: Please see below PHYSICAL EXAMINATION: CONSTITUTIONAL: No acute distress, laying in bed, AAO x 3 EYES: PERRLA, EOM intact HENT, MOUTH: Normocephalic, atraumatic, moist mucous membranes NECK: SUPPLE, no JVD, no lymphadenopathy, no carotid bruit CV: Regular rate and rhythm, S1S2 normal, no murmurs/rubs/gallops RESPIRATORY: Clear to auscultation bilaterally, no rales/rhonchi/wheezes GI: BS positive in 4 quadrants, soft, nontender, nondistended, no rebound or guarding, no organomegaly : Deferred MUSCULOSKELETAL: Normal ROM. No cyanosis, clubbing, swelling, joint deformity, extremity edema INTEGUMENTARY: Small bruise on right buttocks, Intact, no rashes, no lesions, no erythema NEUROLOGIC: Cranial Nerves II-XII are intact, no focal deficits PSYCHIATRIC: Mood and affect are normal CURRENT MEDICATIONS: Please see below LABORATORY DATA: Please see below IMAGING: Echocardiogram pending V/Q 01/26/21: Technical limitations and findings as described above consistent with intermediate probability for PE. Consider CT angiography of the pulmonary arteries. Echocardiogram 01/14/20: 1. Borderline concentric left ventricular hypertrophy. Normal regional left ventricular (LV) wall motion and wall thickening. Normal left ventricular (LV) systolic function. Left ventricular ejection fraction (LVEF) 50% by visual estimate. Left ventricular (LV) diastolic function may not be adequately determined due to presence of atrial fibrillation. 2. Suggestive of moderate elevation of estimated right ventricle systolic pressure (40 mmHg). Normal right ventricle size and systolic function. Moderate right atrial dilatation. Moderate tricuspid regurgitation. 3. Moderate left atrial dilatation. 4. Moderate aortic valve sclerosis of a 3-cuspid aortic valve. No aortic stenosis or regurgitation. 5. Moderate mitral annular calcification. Very mild mitral regurgitation. No mitral stenosis. 6. No pericardial effusion. 7. Right pleural effusion. ASSESSMENT: PLAN: Presyncope 2/2 to orthostatics -Remains orthostatic today, symptomatic with movement still -Trop neg -Echo pending -Stopped BB and torsemide , IVFs -If DVTs r/o in lower ext, consider compression stockings, abdominal binder -Started midodrine TID moderate dose, can increase if needed -C/w tele, PT/OT. Hypoxia with exertion likely 2/2 to pulmonary embolus/emboli- resolved -Currently on RA -Not COPD related -V/Q scan above -WELLs: mod risk -Stopped heparin gtt, started eliquis -Doppler lower b/l to r/o DVT., supplemental O2 PRN HFpEF without exacerbation -Trop neg, BNP >2K ;however, chronically elevated and this is the lowest its been in quite some time -Echo 2019 above -Monitor fluid balance, I's and O's, urinary output -Stopped BB and torsemide for now COPD without exacerbation -Currently on RA and not suspecting a factor in acute hypoxia -C/w home meds A. fib, rate controlled Telemetry monitoring Continue home medication with parameters for blood pressure -Holding BB, on eliquis higher dose x 7 days CKD Stage III -Cr at baseline range 2.4-2.7 -Avoid nephrotoxins -Daily labs Right gluteal pain 2/2 to slip to ground prior to admission -Small bruise, possible muscle strain. -Tylenol PRN, PT/OT Poor p.o. intake -Nutritional consult appreciated Deconditioning and frail elder -Fall precautions -PT/OT History of GEETA -Does not use CPAP at home Right middle lobe nodule 4 mm -Incidental CT finding -Recommendations for CT chest at 12-month mare for monitoring. -Remind patient for interval follow-up upon discharge DVT PX -eliquis DISPOSITION: Inpatient status. PT/OT. [facility]O Vital Signs Date Time Temp Pulse Resp B/P (MAP) Pulse Ox O2 Delivery O2 Flow Rate FiO2 01/26/21 16:57 101 91/52 (65) 01/26/21 14:00 97.7 18 99 Room Air I&O- Last 24 Hours up to 6 AM 01/26/21 06:00 Intake Total 1410 ml Output Total 800 ml Balance 610 ml Laboratory Data 24H LABS Laboratory Tests 2 01/25/21 21:13: Bedside Glucose (Misc Panel) 247H 01/26/21 05:27: Immature Granulocyte % (Auto) 0.4, Neutrophils (%) (Auto) 68.1H, Lymphocytes (%) (Auto) 15.8L, Monocytes (%) (Auto) 9.2H, Eosinophils (%) (Auto) 6.2H, Basophils (%) (Auto) 0.3, Neutrophils # (Auto) 6.2, Lymphocytes # (Auto) 1.4L, Monocytes # (Auto) 0.8, Eosinophils # (Auto) 0.6H, Basophils # (Auto) 0.0, Nucleated Red Blood Cells % (auto) 0.0, Activated Partial Thromboplast Time 98.3H, Anion Gap 7L, Glomerular Filtration Rate 26.1L, Calcium Level 8.6L 01/26/21 11:35: Bedside Glucose (Misc Panel) 130H 01/26/21 11:36: Activated Partial Thromboplast Time 104.3H 01/26/21 16:29: Bedside Glucose (Misc Panel) 169H CBC/BMP Laboratory Tests 01/26/21 05:27 Ange Calloway MD Jan 26, 2021 20:23
[2021-01-26] MEDS: TAMSULOSIN 0.4 MG CAP PO SCH (21:30)
[2021-01-26] MEDS: SENNA 8.6 MG TAB (SENOKOT) PO SCH (21:30)
[2021-01-26] MEDS: allopurinoL 300 MG TAB PO SCH (21:30)
[2021-01-26] MEDS: APIXABAN 5 MG TAB (ELIQUIS) PO SCH (22:15)
[2021-01-27] MEDS: LEVOTHYROXINE 25MCG TABLET (0.025MG) PO SCH (05:42)
[2021-01-27 06:00] VITALS: BP 149/84
[2021-01-27 06:20] LABS: BASO % 0.2 % (0.0-1.0); EOS # 0.5 10^3/uL (0.0-0.5); HEMATOCRIT 24.2 % (42.0-52.0); HEMOGLOBIN 8.1 g/dl (13.5-17.5); LYMPH # 1.3 10^3/uL (1.5-5.0); LYMPH % 12.5 % (24.0-44.0); MEAN CORPUSCULAR HGB CONC 33.5 g/dl (32.0-36.5); MEAN CORPUSCULAR VOLUME 101.7 fl (80.0-96.0); MONO # 0.9 10^3/uL (0.0-0.8); MONO % 8.6 % (2.0-8.0); NEUTROPHILS # 7.9 10^3/uL (1.5-8.5); NEUTROPHILS % 73.2 % (36.0-66.0); PLATELET COUNT, AUTOMATED 140 10^3/uL (150-450); RED BLOOD COUNT 2.38 10^6/uL (4.30-6.10); WHITE BLOOD COUNT 10.8 10^3/uL (4.0-10.0)
[2021-01-27] MEDS: ACETAMINOPHEN TAB 650MG DOSE (2X325MG) PO PRN (06:28)
[2021-01-27 06:43] LABS: CALCIUM LEVEL 8.5 MG/DL (8.8-10.2); CREATININE FOR GFR 2.37 MG/DL (0.70-1.30); GLOMERULAR FILTRATION RATE 27.9 (>35); POTASSIUM SERUM 4.1 MEQ/L (3.5-5.1)
[2021-01-27] MEDS: SYMBICORT 160/4.5MCG INHALER 6GM INH SCH ×2 (07:23→19:12)
--- NOTE | 2021-01-27 08:13 | REP ---
INDICATION: r/o dvt. PE + COMPARISON: None. TECHNIQUE: Moyer scale and color Doppler evaluation using linear high frequency transducer. FINDINGS: Ultrasound examination of the right and left lower extremity deep venous structures from the common femoral vein through the calf/ankle to include the peroneal, and tibial veins demonstrates normal compressibility flow and wave patterns in response to respiration and augmentation. There is no evidence for deep venous thrombosis. IMPRESSION: No evidence for deep venous thrombosis. <Electronically signed by Jez Carcamo > 01/27/21 0899
--- NOTE | 2021-01-27 08:13 | ECHO ---
ECHOCARDIOGRAM DATE OF PROCEDURE: 01/26/2021 Age: 85 Gender: Male Height: 173 cm Weight: 80 kg REFERRING PHYSICIAN: Ange Calloway M.D. INDICATION: Syncope MEASUREMENTS: IVS 1.4 cm LV 4.4 cm LVPW 1.5 cm LA 3.9 cm Aorta 4.3 cm IVC 1.3 cm FINDINGS: This study is of fair technical quality, underlying atrial fibrillation with wide QRS complex. Left ventricle has normal size. Moderate left ventricular hypertrophy is present. Overall likely normal LV systolic function based on fair quality views. I estimate EF around 60%. Right ventricle also appears grossly normal size and systolic function. There is severe biatrial enlargement, indicative of likely chronic atrial fibrillation. The aortic valve is poorly visualized, based on limited views, it appears that it most likely represents TAVR. I cannot comment on its structure. Mitral valve exhibits mild degenerative abnormalities with mitral annular calcifications, but preserved mobility. Tricuspid valve appears normal. Pulmonic valve was not well visualized. No pericardial effusion is present. Inferior vena cava is relatively small caliber, indicative of normal central venous pressure. The aortic root is dilated. Aortic arch and abdominal aorta were not well seen. Doppler interrogation of aortic valve reveals no insufficiency and gradient 7 mmHg, corresponding to normal values. There is mild mitral insufficiency and moderate tricuspid insufficiency. Calculated pulmonary artery pressure is in 40's, corresponding to moderate pulmonary hypertension. Evaluation of diastolic function is inconclusive due to underlying atrial fibrillation. CONCLUSION: 1. Study is of fair technical quality, underlying atrial fibrillation with wide QRS complex. 2. Normal LV size with moderate left ventricular hypertrophy and overall preserved LV systolic function. 3. Severe biatrial enlargement 4. 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 5. Mild mitral insufficiency. 6. Moderate tricuspid insufficiency. 7. Normal central venous pressure and likely moderate pulmonary hypertension. COMMENT: The severity of pulmonary hypertension is unlikely severe enough to cause syncopal event. [facility]
[2021-01-27] MEDS: ATORVASTATIN 20 MG TAB PO SCH (08:22)
[2021-01-27] MEDS: MULTIVITAMINS/MINERALS THERAP 1 TAB PO SCH (08:22)
[2021-01-27] MEDS: APIXABAN 5 MG TAB (ELIQUIS) PO SCH ×2 (08:22→21:47)
[2021-01-27] MEDS: FERROUS GLUCONATE 324 MG TAB PO SCH (08:22)
[2021-01-27] MEDS: ASPIRIN 81MG ENTERIC TABLET PO SCH (08:22)
[2021-01-27] MEDS: HumaLOG INSULIN (NovoLOG) PER UNIT SC SCH ×4 (08:22→20:14)
[2021-01-27 08:23] VITALS: BP 103/56
[2021-01-27] MEDS: MIDODRINE 5 MG TAB PO SCH ×3 (08:23→17:48)
[2021-01-27] MEDS: DOCUSATE SODIUM 100MG CAPSULE PO SCH ×2 (08:23→20:13)
[2021-01-27 14:00] VITALS: BP 102/57
[2021-01-27] MEDS: VITAMIN B COMPLEX/VIT C CAP PO SCH (17:48)
[2021-01-27] MEDS: TAMSULOSIN 0.4 MG CAP PO SCH (20:13)
[2021-01-27] MEDS: allopurinoL 300 MG TAB PO SCH (20:13)
[2021-01-27] MEDS: SENNA 8.6 MG TAB (SENOKOT) PO SCH (20:13)
[2021-01-27 21:01] VITALS: BP 114/56
--- NOTE | 2021-01-27 21:08 | IPNPDOC ---
Date Seen The patient was seen on 01/27/21. Progress Note SUBJECTIVE: Patient is a -year-old [RACE] [GENDER] with OBJECTIVE PHYSICAL EXAMINATION: VITAL SIGNS: Please see below. GENERAL: HEENT: CARDIOVASCULAR: . RESPIRATORY: . ABDOMINAL: EXTREMITIES: NEUROLOGICAL: PSYCHOLOGICAL: LABORATORY DATA, IMAGING STUDIES, MICROBIOLOGY: Please see below. Echocardiogram: . DVT prophylaxis ordered?: ASSESSMENT AND PLAN: Presyncope 2/2 to orthostatics -Remains orthostatic today, symptomatic with movement still -Trop neg -Echo pending -Stopped BB and torsemide , IVFs -If DVTs r/o in lower ext, consider compression stockings, abdominal binder -Started midodrine TID moderate dose, can increase if needed -C/w tele, PT/OT. Hypoxia with exertion likely 2/2 to pulmonary embolus/emboli- resolved -Currently on RA -Not COPD related -V/Q scan above -WELLs: mod risk -Stopped heparin gtt, started eliquis -Doppler lower b/l to r/o DVT., supplemental O2 PRN HFpEF without exacerbation -Trop neg, BNP >2K ;however, chronically elevated and this is the lowest its been in quite some time -Echo 2019 above -Monitor fluid balance, I's and O's, urinary output -Stopped BB and torsemide for now COPD without exacerbation -Currently on RA and not suspecting a factor in acute hypoxia -C/w home meds A. fib, rate controlled Telemetry monitoring Continue home medication with parameters for blood pressure -Holding BB, on eliquis higher dose x 7 days CKD Stage III -Cr at baseline range 2.4-2.7 -Avoid nephrotoxins -Daily labs Right gluteal pain 2/2 to slip to ground prior to admission -Small bruise, possible muscle strain. -Tylenol PRN, PT/OT Poor p.o. intake -Nutritional consult appreciated Deconditioning and frail elder -Fall precautions -PT/OT History of GEETA -Does not use CPAP at home Right middle lobe nodule 4 mm -Incidental CT finding -Recommendations for CT chest at 12-month mare for monitoring. -Remind patient for interval follow-up upon discharge DVT PX -eliquis DISPOSITION: Inpatient status. PT/OT. VS, I&O, 24H, Fishbone Vital Signs/I&O Vital Signs Date Time Temp Pulse Resp B/P (MAP) Pulse Ox O2 Delivery O2 Flow Rate FiO2 01/27/21 21:01 99.6 76 16 114/56 (75) 96 Room Air I&O- Last 24 Hours up to 6 AM 01/27/21 06:00 Intake Total 2320 ml Output Total 575 ml Balance 1745 ml Laboratory Data 24H LABS Laboratory Tests 2 01/27/21 06:02: Immature Granulocyte % (Auto) 0.5, Neutrophils (%) (Auto) 73.2H, Lymphocytes (%) (Auto) 12.5L, Monocytes (%) (Auto) 8.6H, Eosinophils (%) (Auto) 5.0H, Basophils (%) (Auto) 0.2, Neutrophils # (Auto) 7.9, Lymphocytes # (Auto) 1.3L, Monocytes # (Auto) 0.9H, Eosinophils # (Auto) 0.5, Basophils # (Auto) 0.0, Nucleated Red Blood Cells % (auto) 0.0, Activated Partial Thromboplast Time 29.2, Anion Gap 6L, Glomerular Filtration Rate 27.9L, Calcium Level 8.5L 01/27/21 11:26: Bedside Glucose (Misc Panel) 121H 01/27/21 16:21: Bedside Glucose (Misc Panel) 173H 01/27/21 20:06: Bedside Glucose (Misc Panel) 76L CBC/BMP Laboratory Tests 01/27/21 06:02 Microbiology Microbiology 01/26/21 Stool Occult Blood (DIANNE) - Final, Complete 01/26/21 Urine Culture, Received Pending RORY MAR MD Jan 27, 2021 21:08
[2021-01-28] VITALS (12 sets, daily range): BP systolic 104–140; BP diastolic 58–81
[2021-01-28] MEDS: LEVOTHYROXINE 25MCG TABLET (0.025MG) PO SCH (06:23)
[2021-01-28 06:47] LABS: BASO % 0.1 % (0.0-1.0); EOS # 0.6 10^3/uL (0.0-0.5); EOS % 7.3 % (0.0-3.0); HEMATOCRIT 23.2 % (42.0-52.0); HEMOGLOBIN 7.7 g/dl (13.5-17.5); LYMPH # 1.4 10^3/uL (1.5-5.0); MEAN CORPUSCULAR HEMOGLOBIN 34.1 pg (27.0-33.0); MEAN CORPUSCULAR HGB CONC 33.2 g/dl (32.0-36.5); MEAN CORPUSCULAR VOLUME 102.7 fl (80.0-96.0); MONO # 0.7 10^3/uL (0.0-0.8); MONO % 8.4 % (2.0-8.0); NEUTROPHILS # 5.4 10^3/uL (1.5-8.5); NEUTROPHILS % 66.5 % (36.0-66.0); PLATELET COUNT, AUTOMATED 135 10^3/uL (150-450); RED BLOOD COUNT 2.26 10^6/uL (4.30-6.10); WHITE BLOOD COUNT 8.1 10^3/uL (4.0-10.0)
[2021-01-28 07:01] LABS: CALCIUM LEVEL 8.5 MG/DL (8.8-10.2); CREATININE FOR GFR 1.96 MG/DL (0.70-1.30); GLOMERULAR FILTRATION RATE 34.8 (>35); POTASSIUM SERUM 4.2 MEQ/L (3.5-5.1)
[2021-01-28] MEDS: HumaLOG INSULIN (NovoLOG) PER UNIT SC SCH ×3 (07:30→17:42)
[2021-01-28] MEDS: SYMBICORT 160/4.5MCG INHALER 6GM INH SCH (07:58)
[2021-01-28] MEDS ORDERED: TIOTROPIUM INHALER/CAPSULE (SPIRIVA) INH SCH (08:00)
[2021-01-28] MEDS ORDERED: APIXABAN 5 MG TAB (ELIQUIS) PO SCH (09:00)
[2021-01-28] MEDS: MULTIVITAMINS/MINERALS THERAP 1 TAB PO SCH (09:45)
[2021-01-28] MEDS: ASPIRIN 81MG ENTERIC TABLET PO SCH (09:45)
[2021-01-28] MEDS: FERROUS GLUCONATE 324 MG TAB PO SCH (09:45)
[2021-01-28] MEDS: ATORVASTATIN 20 MG TAB PO SCH (09:45)
[2021-01-28] MEDS: DOCUSATE SODIUM 100MG CAPSULE PO SCH (09:45)
--- NOTE | 2021-01-28 12:59 | REP ---
INDICATION: syncope COMPARISON: None. 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 Normal laminar flow and no appreciable narrowing. Color Doppler interrogation demonstrates normal arterial wave patterns and velocities with no significant spectral broadening. Normal flow direction is appreciated in the bilateral vertebral arteries. ICA peak systolic velocity: Right 96.0 cm/s; Left 98.2 cm/s ICA diastolic velocity: Right 30.2 cm/s; Left 30.7 cm/s ECA peak systolic velocity: Right 91.9 cm/s; Left 61.5 cm/s CCA peak systolic velocity: Right 89.5 cm/s; Left 93.8 cm/s ICA/CCA ratio: Right 1.0 set cm/s; Left 1.05 cm/s IMPRESSION: No hemodynamically significant areas of narrowing or stenosis appreciated. Based on set standards narrowing falls within the less than 50% range. <Electronically signed by Jez Carcamo > 01/28/21 [id number]
[2021-01-28] MEDS: MIDODRINE 5 MG TAB PO SCH ×2 (13:11→17:43)
--- NOTE | 2021-01-28 14:29 | REPVR ---
PROCEDURE INFORMATION: Exam: MR Head Without Contrast Exam date and time: 01/28/2021 1:01 PM Age: 85 years old Clinical indication: Other: Headache; Additional info: R/O CVA TECHNIQUE: Imaging protocol: MR of the head without contrast. COMPARISON: CT Head without contrast 01/24/2021 10:21 PM FINDINGS: Brain: There is no extra-axial collection or intra-axial mass. Moderate diffuse volume loss is within the range of normal for patient age. There are foci of increased T2/FLAIR white matter hyperintensity, nonspecific but typically small-vessel ischemia in this age group. There is no diffusion restriction. Cerebral ventricles: Normal. No ventriculomegaly. Bones/joints: Unremarkable. Paranasal sinuses: Normal as visualized. No acute sinusitis. Mastoid air cells: Normal as visualized. No mastoid effusion. Orbital cavity: Unremarkable. Soft tissues: Unremarkable. IMPRESSION: No acute abnormality. Chronic age related changes. Electronically signed by: Shannon Camilo On 01/28/2021 14:28:39 PM
[2021-01-28] MEDS ORDERED: TIOT18INH INH (16:18)
[2021-01-28] MEDS ORDERED: ELIQ5TAB PO (16:18)
[2021-01-28] MEDS ORDERED: ACET1TAB55 PO (16:18)
[2021-01-28] MEDS ORDERED: MIDO5TA PO ×2 (16:18→18:52)
[2021-01-28] MEDS ORDERED: TORS10TA3 PO (16:22)
[2021-01-28] MEDS ORDERED: CARV6.25 PO (16:23)
[2021-01-28] MEDS: VITAMIN B COMPLEX/VIT C CAP PO SCH (17:42)
[2021-01-28 18:43] LABS: BASO % 0.2 % (0.0-1.0); EOS # 0.7 10^3/uL (0.0-0.5); EOS % 7.3 % (0.0-3.0); HEMATOCRIT 29.1 % (42.0-52.0); LYMPH # 1.4 10^3/uL (1.5-5.0); LYMPH % 14.7 % (24.0-44.0); MEAN CORPUSCULAR HEMOGLOBIN 34.6 pg (27.0-33.0); MEAN CORPUSCULAR HGB CONC 33.3 g/dl (32.0-36.5); MEAN CORPUSCULAR VOLUME 103.9 fl (80.0-96.0); MONO # 0.7 10^3/uL (0.0-0.8); MONO % 7.1 % (2.0-8.0); NEUTROPHILS # 6.9 10^3/uL (1.5-8.5); NEUTROPHILS % 70.2 % (36.0-66.0); PLATELET COUNT, AUTOMATED 148 10^3/uL (150-450); WHITE BLOOD COUNT 9.8 10^3/uL (4.0-10.0)
[2021-01-28 19:01] LABS: HEMOGLOBIN 9.7 g/dl (13.5-17.5)
--- NOTE | 2021-02-02 12:35 | DS.PDOC ---
Discharge Summary General Date of Admission Jan 25, 2021 at 18:35 Date of Discharge 01/28/21 Discharge Summary PROCEDURES PERFORMED DURING STAY: [None]. ADMITTING DIAGNOSES: Pre-syncope Hx of HFpEF, stable COPD without acute exacerbation Hx afib Hx CKD Debility DISCHARGE DIAGNOSES: Presyncope 2/2 orthostatic hypotension Hypoxia, resolved Hx of HFpEF, stable COPD without acute exacerbation Hx afib Hx CKD Debility COMPLICATIONS/CHIEF COMPLAINT: Pre-Syncope. HISTORY OF PRESENT ILLNESS: obtained from HPI: "Merlin Fairchild is an 85-year-old male with significant history of hypertension, CHF, GEETA not on CPAP, CKD, COPD not oxygen dependent, A. fib on Eliquis and diabetes who presents with complaints of lightheadedness and presyncope. Patient seen in ED bed in no acute distress. When asked regarding events prior to arrival he described the following: Patient got up from bed to walk to the bathroom and prison walking from his bed to the bathroom with his walker he describes sensation of lightheadedness. Patient reports that is not uncommon for him to become lightheaded. He endorses feelings of lightheadedness with quick position changes for the past year. Patient describes to combat the lightheadedness he takes slow position changes and sits down if he starts feeling lightheaded. However, today it was unusual for him to be lightheaded after walking versus immediately upon standing. Patient reports he was able to make it to the bathroom and there he sat down and took time and slowly had his position changes after the bathroom and was able to make his way back to the bed, but again at the prison point he began feeling lightheaded. Because this was the second time he felt lightheaded he was concerned that he may pass out which he has done in the past and thus he laid himself down on the ground and called for his [id number]. Reportedly, [id number] came down and saw patient on the floor and got him to a seated position and checked his oxygen and it was reported to be low. Pt denies peralta, sinus congestion, sore throat, productive cough, sob, palpitations, chest pain, n/v/d, edema or abdominal pain. Patient does report that he has had poor interest in eating and does not eat much. He endorses during exam it has almost been 24 hours since he last ate and his last meal was several cookies and coffee. Patient does report that he checks blood sugar twice a day and it has not been low or high. He also reports that he checks his temperature twice a day and he has not had a fever. He reports that at home because of his A. fib his blood pressure machine does not read correctly and thus he is unsure how his blood pressure has been. Patient does endorse right gluteal pain and reports it limiting his right lower extremity movement due to the moderate sore type pain. He attributes this to possibly "pulling something" when he was getting himself up from the floor. Patient endorses some deconditioning at baseline using a walker to get around at baseline and "terrible balance"; prone to falling. Patient reports his most recent fall was 2 weeks ago when he fell and hit the back of his head. The site of impact "hurt up until 2 days ago". Additionally mentioned, patient endorses a sensation of lightheadedness when he had his stroke and TIAs in the past. Patient came to the ED and at rest SPO2 greater than 92% but he was ambulated in the ED 81% oxygen at lowest with ambulation but he denied lightheadedness at that time. Patient afebrile, not tachycardic and mildly hypertensive systolic blood pressure 140s to 160s. Patient underwent CT head which was nonacute. Additionally given the hypoxemia he underwent CT chest which was nonacute and showed interval resolution of his bilateral pleural effusions. Of note, there was a concern whether or not patient was with PE given elevated D-dimer but CT chest with contrast unable to be performed given creatinine level 2.41. Lateral lower extremity ultrasound completed negative DVT. Patient is on Eliquis given A. fib and he does report compliance with his medication. Patient will be admitted for further evaluation management presenting concerns." HOSPITAL COURSE: Presyncope 2/2 to orthostatics -Trop neg -2D echo showing LVEF 60%. - BB held - orthostasis improved with IVF, and midodrine - c/w midodrine 5 mg TID - resume toresmide 10 mg daily on DC> Hypoxia with exertion likely 2/2 to pulmonary embolus/emboli- resolved -Currently on RA -Not COPD related -V/Q scan above -WELLs: mod risk -Stopped heparin gtt, started eliquis -Doppler lower b/l to r/o DVT., supplemental O2 PRN HFpEF without exacerbation -Trop neg, BNP >2K ;however, chronically elevated and this is the lowest its been in quite some time -Echo 2019 above -Monitor fluid balance, I's and O's, urinary output -Stopped BB and torsemide for now COPD without exacerbation -Currently on RA and not suspecting a factor in acute hypoxia -C/w home meds A. fib, rate controlled Telemetry monitoring Continue home medication with parameters for blood pressure -Holding BB, on eliquis higher dose x 7 days CKD Stage III -Cr at baseline range 2.4-2.7 -Avoid nephrotoxins -Daily labs Right gluteal pain 2/2 to slip to ground prior to admission -Small bruise, possible muscle strain. -Tylenol PRN, PT/OT Poor p.o. intake -Nutritional consult appreciated Deconditioning and frail elder -Fall precautions -PT/OT History of GEETA -Does not use CPAP at home Right middle lobe nodule 4 mm -Incidental CT finding -Recommendations for CT chest at 12-month mare for monitoring. -Remind patient for interval follow-up upon discharge DVT PX -eliquis DISCHARGE MEDICATIONS: Please see below. ALLERGIES: Please see below. PHYSICAL EXAMINATION ON DISCHARGE: VITAL SIGNS: please see below General: NAD, comfortable HEENT: PERRLA, EOMI, sclerae clear Neck: supple, normal ROM, no JVD Respiratory: lungs CTAB, no wheeze, no rales, no crackles CVS: RRR, normal S1, S2, no murmurs Abdo: soft, no masses, no hepatosplenomegaly, BS+, no rebound tenderness Extremities: no edema, pulses 2+ MSK: no joint deformities, normal ROM Neuro: no focal neuro deficits, moving all 4 extremities, CN2-12 intact. Strength 5/5 in all 4 extremities. No nystagmus. Psych: calm, cooperative, AAO x 3 LABORATORY DATA: Please see below. IMAGING: Carotid Duplex (01/28/21): IMPRESSION: No hemodynamically significant areas of narrowing or stenosis appreciated. Based on set standards narrowing falls within the less than 50% range. PROGNOSIS: good ACTIVITY: [As tolerated]. DIET: DISCHARGE PLAN: DISPOSITION: 01 Home, Self-Care. DISCHARGE INSTRUCTIONS: 1. . ITEMS TO FOLLOWUP ON ON OUTPATIENT: R middle lung nodule 4 mm - needs surveillance DISCHARGE CONDITION: [Stable]. TIME SPENT ON DISCHARGE: 35 minutes Vital Signs/I&Os Vital Signs Date Time Temp Pulse Resp B/P (MAP) Pulse Ox O2 Delivery O2 Flow Rate FiO2 01/28/21 19:19 98.7 96 18 136/81 98 Room Air Microbiology Microbiology 01/26/21 Stool Occult Blood (DIANNE) - Final, Complete 01/26/21 Urine Culture - Final, Complete Discharge Medications Scheduled Apixaban (Eliquis) 5 Mg Tablet, 5 MG PO BID Aspirin (Aspirin EC) 81 Mg Tab, 81 MG PO DAILY, (Reported) Atorvastatin Calcium (Atorvastatin Calcium) 40 Mg Tab, 40 MG PO DAILY, (Reported) Budesonide/Formoterol (Symbicort 160-4.5 Mcg Inhaler) 6 Gm Hfa.aer.ad, 2 PUFFS INH BID, (Reported) Carvedilol (Carvedilol) 6.25 Mg Tablet, 1 TAB PO BID Ferrous Gluconate (Ferrous Gluconate) 324 Mg Tablet, 324 MG PO DAILY, (Reported) Levothyroxine Sodium (Synthroid) 25 Mcg Tab, 25 MCG PO DAILY, (Reported) Magnesium Chloride (Mag64) 64 Mg Tablet.dr, 64 MG PO DAILY, (Reported) Midodrine HCl (Midodrine HCl) 5 Mg Tablet, 5 MG PO 08,12,16 Multivit-Mins/Iron/Folic/Lycop (Centrum Men's Tablet) 1 Each Tablet, 1 TAB PO DAILY, (Reported) Tamsulosin Hcl (Tamsulosin HCl) 0.4 Mg Capsule, 0.4 MG PO QHS, (Reported) Tiotropium Schaller (Spiriva Respimat) 4 Gm Mist.inhal, 1 INHALATION INH DAILY, (Reported) Torsemide (Torsemide) 10 Mg Tablet, 1 TAB PO DAILY allopurinoL (allopurinoL) 300 Mg Tablet, 300 MG PO QHS, (Reported) Scheduled PRN Acetaminophen (Acetaminophen) 325 Mg Tablet, 650 MG PO Q4H PRN for MILD PAIN or TEMP > 101 Albuterol Sulfate (Proair Hfa) 8.5 Gm Hfa.aer.ad, 2 PUFF INH Q4H PRN for SHORTNESS OF BREATH, (Reported) Allergies Coded Allergies: NSAIDS (Non-Steroidal Anti-Inflamma (Verified Allergy, Mild, rash, 01/24/21) Penicillins (Verified Allergy, Mild, rash, 01/24/21) RORY MAR MD Feb 02, 2021 12:35
== END 2021-01-28 19:43 | disposition home health service (06) | DRG 176 ==
LOC: M ED 16:33 → M ED INP 22:18 → ENRESERV 23:04 → M MSPAV 01-25 00:03 → OBSVTOIN 01-25 18:35
PROVIDERS: ADMIT Internal Medicine; ATTEND Family Medicine
PROC: 30233N1 Transfusion of Nonautologous Red Blood Cells into Peripheral Vein, Percutaneous Approach (ICD-10-PCS; principal; 2021-01-28)
DX: I26.99 Other pulmonary embolism without acute cor pulmonale (principal); I13.0 Hypertensive heart and chronic kidney disease with heart failure and stage 1 through stage 4 chronic kidney disease, or unspecified chronic kidney disease; I50.32 Chronic diastolic (congestive) heart failure; I95.1 Orthostatic hypotension; N18.30 Chronic kidney disease, stage 3 unspecified; J44.9 Chronic obstructive pulmonary disease, unspecified; I48.91 Unspecified atrial fibrillation; E11.22 Type 2 diabetes mellitus with diabetic chronic kidney disease; M54.50 Low back pain, unspecified; R26.81 Unsteadiness on feet; R09.02 Hypoxemia; R91.1 Solitary pulmonary nodule; Z79.01 Long term (current) use of anticoagulants; Z79.82 Long term (current) use of aspirin; Z79.899 Other long term (current) drug therapy; Z88.0 Allergy status to penicillin; Z88.6 Allergy status to analgesic agent; Z98.49 Cataract extraction status, unspecified eye; Z95.2 Presence of prosthetic heart valve; Z87.891 Personal history of nicotine dependence; Z20.822 Contact with and (suspected) exposure to COVID-19

== ENCOUNTER → 2021-02-09 | Outpatient (CLI) | payer MEDICARE, OTHER ==
[~2021-02-09] MED LIST changes: +ALLO300T2 PO; +ELIQ5TAB PO; +MIDO5TA PO; +SYMB16INH INH; +TAMS1CAP17 PO; +TIOT18INH INH; +TORS10TA3 PO
--- NOTE | 2021-02-09 11:11 | REP ---
INDICATION: PNEUMONIA COMPARISON: 01/24/2021 as well as other prior exams. TECHNIQUE: PA/Lateral FINDINGS: Lungs: Clear, no infiltrate. Heart: Normal in size. Mediastinum: Mediastinal silhouette unremarkable. Pleural angles: Unremarkable.. Bones and soft tissues: There are degenerative changes of the spine without compression deformity. There is a mesh material overlying the heart unchanged. IMPRESSION: No acute pulmonary disease. <Electronically signed by Mauricio Moyer > 02/09/21 [id number]
== END ==
LOC: M WUC 10:17
PROVIDERS: ATTEND Internal Medicine
DX: J18.9 Pneumonia, unspecified organism (principal)

== ENCOUNTER → 2021-04-02 | Outpatient (REF) | payer OTHER, MEDICARE ==
[~2021-04-02] MED LIST changes: -CEFD1CAP8 PO; +CEFD300C41 PO
== END ==
LOC: M LAB REF 17:16
PROVIDERS: ATTEND Nurse Practitioner Family
DX: N18.4 Chronic kidney disease, stage 4 (severe) (principal)

== ENCOUNTER 2022-01-29 19:08 | Emergency (ER) | payer OTHER, MEDICARE ==
[~2022-01-29] VITALS: Ht 177.8 cm; Wt 88.4 kg
[2022-01-29] MEDS ORDERED: FLUT1BLS3 IH (19:18)
[2022-01-29 21:18] LABS: BASO % 0.4 % (0.0-1.0); EOS # 0.8 10^3/uL (0.0-0.5); EOS % 10.4 % (0.0-3.0); HEMATOCRIT 33.4 % (42.0-52.0); HEMOGLOBIN 10.7 g/dl (13.5-17.5); LYMPH % 13.8 % (24.0-44.0); MEAN CORPUSCULAR HEMOGLOBIN 33.4 pg (27.0-33.0); MEAN CORPUSCULAR VOLUME 104.4 fl (80.0-96.0); MONO # 0.7 10^3/uL (0.0-0.8); MONO % 8.9 % (2.0-8.0); NEUTROPHILS # 4.9 10^3/uL (1.5-8.5); NEUTROPHILS % 66.2 % (36.0-66.0); PLATELET COUNT, AUTOMATED 154 10^3/uL (150-450); WHITE BLOOD COUNT 7.4 10^3/uL (4.0-10.0)
[2022-01-29 21:47] LABS: ALBUMIN 2.5 G/DL (3.2-5.2); BILIRUBIN,DIRECT 0.1 MG/DL (<0.4); BILIRUBIN,TOTAL 0.3 MG/DL (0.3-1.2); CALCIUM LEVEL 8.1 MG/DL (8.3-10.6); CK-MB VALUE MASS 3.4 NG/ML (<3.6); CREATININE FOR GFR 2.57 MG/DL (0.70-1.30); GLOMERULAR FILTRATION RATE 25.4 (>35); MB/CK RELATIVE INDEX 5.66 (< OR =4); POTASSIUM SERUM 4.5 MMOL/L (3.5-5.1); TOTAL PROTEIN 5.1 G/DL (5.7-8.2)
[2022-01-29 23:05] VITALS: BP 184/111
== END 2022-01-29 23:08 | disposition home or self-care (01) ==
LOC: M ED 19:08
DX: R60.9 Edema, unspecified (principal); E77.8 Other disorders of glycoprotein metabolism; E88.09 Other disorders of plasma-protein metabolism, not elsewhere classified; E46 Unspecified protein-calorie malnutrition; N18.4 Chronic kidney disease, stage 4 (severe); I51.7 Cardiomegaly; I48.91 Unspecified atrial fibrillation; I50.9 Heart failure, unspecified; E11.9 Type 2 diabetes mellitus without complications; I10 Essential (primary) hypertension; J44.9 Chronic obstructive pulmonary disease, unspecified; G47.33 Obstructive sleep apnea (adult) (pediatric); Z86.73 Personal history of transient ischemic attack (TIA), and cerebral infarction without residual deficits; Z87.891 Personal history of nicotine dependence; Z79.82 Long term (current) use of aspirin; Z79.890 Hormone replacement therapy; Z79.899 Other long term (current) drug therapy; Z88.6 Allergy status to analgesic agent; Z88.0 Allergy status to penicillin

== ENCOUNTER → 2022-05-13 | Outpatient (REF) | payer MEDICARE, OTHER ==
[~2022-05-13] MED LIST changes: +FLUT1BLS3 IH
[2022-05-13 16:07] LABS: POTASSIUM SERUM 3.8 MMOL/L (3.5-5.1)
== END ==
LOC: M LAB REF 15:10
PROVIDERS: ATTEND Internal Medicine Nephrology
DX: N18.4 Chronic kidney disease, stage 4 (severe) (principal)

== ENCOUNTER 2022-07-28 20:31 | Inpatient (IN) | payer MEDICARE, OTHER ==
[~2022-07-28] VITALS: Ht 177.8 cm; Wt 83.3 kg
[~2022-07-28 20:31] MED LIST changes: -FLUT1BLS3 IH; +FLUT1BLS3 INH
[2022-07-28 23:17] LABS: BASO % 0.2 % (0.0-1.0); EOS # 1.2 10^3/uL (0.0-0.5); EOS % 13.2 % (0.0-3.0); HEMATOCRIT 28.4 % (42.0-52.0); HEMOGLOBIN 9.4 g/dl (13.5-17.5); LYMPH # 0.8 10^3/uL (1.5-5.0); LYMPH % 9.1 % (24.0-44.0); MEAN CORPUSCULAR HEMOGLOBIN 34.7 pg (27.0-33.0); MEAN CORPUSCULAR HGB CONC 33.1 g/dl (32.0-36.5); MEAN CORPUSCULAR VOLUME 104.8 fl (80.0-96.0); MONO # 0.6 10^3/uL (0.0-0.8); MONO % 6.2 % (2.0-8.0); NEUTROPHILS # 6.4 10^3/uL (1.5-8.5); PLATELET COUNT, AUTOMATED 126 10^3/uL (150-450); RED BLOOD COUNT 2.71 10^6/uL (4.30-6.10)
[2022-07-28 23:50] LABS: CALCIUM LEVEL 7.8 MG/DL (8.3-10.6); CREATININE FOR GFR 3.6 MG/DL (0.70-1.30); GLOMERULAR FILTRATION RATE 17.2 (>35); POTASSIUM SERUM 4.5 MMOL/L (3.5-5.1)
[2022-07-29] VITALS (21 sets, daily range): BP systolic 118–223; BP diastolic 57–156
[2022-07-29] MEDS ORDERED: CARVedilol 6.25 MG TAB PO ONE (00:50)
[2022-07-29] MEDS ORDERED: LABETALOL 100MG/20ML VIAL IV STA ×2 (01:40→06:08)
[2022-07-29 02:07] LABS: RSV AMPLIFICATION NEGATIVE (NEGATIVE)
[2022-07-29] MEDS ORDERED: CLOTRIMAZOLE 1% TOPICAL CREAM 30GM TOP PRN (06:20)
[2022-07-29] MEDS ORDERED: HYDROCORTISONE 1% CREAM 30GM TOP PRN (06:20)
[2022-07-29 06:21] LABS: HEMATOCRIT 29.6 % (42.0-52.0); HEMOGLOBIN 9.9 g/dl (13.5-17.5); MEAN CORPUSCULAR HEMOGLOBIN 34.7 pg (27.0-33.0); MEAN CORPUSCULAR HGB CONC 33.4 g/dl (32.0-36.5); MEAN CORPUSCULAR VOLUME 103.9 fl (80.0-96.0); PLATELET COUNT, AUTOMATED 128 10^3/uL (150-450); RED BLOOD COUNT 2.85 10^6/uL (4.30-6.10); WHITE BLOOD COUNT 7.7 10^3/uL (4.0-10.0)
[2022-07-29] MEDS ORDERED: ELIQ2.5T PO (06:23)
[2022-07-29] MEDS ORDERED: TORS20TA2 PO (06:23)
[2022-07-29] MEDS ORDERED: VITMTA PO (06:23)
[2022-07-29] MEDS ORDERED: ATOR80TA59 PO (06:23)
[2022-07-29] MEDS ORDERED: CARV12.5 PO (06:23)
[2022-07-29] MEDS ORDERED: SPIR12.9 INH (06:23)
[2022-07-29] MEDS ORDERED: ALBU8.5H INH (06:23)
[2022-07-29] MEDS ORDERED: VANICREAM MOISTURIZING SKIN CREAM 113GM TUBE TOP PRN (06:25)
[2022-07-29 06:52] LABS: ALBUMIN 2.4 G/DL (3.2-5.2); BILIRUBIN,TOTAL 0.4 MG/DL (0.3-1.2); CALCIUM LEVEL 8.4 MG/DL (8.3-10.6); CREATININE FOR GFR 3.63 MG/DL (0.70-1.30); MAGNESIUM LEVEL 1.8 MG/DL (1.8-2.4); POTASSIUM SERUM 4.5 MMOL/L (3.5-5.1)
[2022-07-29 06:59] LABS: CREATININE,RANDOM URINE 60.2 MG/DL
[2022-07-29] MEDS: CARVedilol 12.5 MG TAB PO SCH ×2 (08:28→22:14)
[2022-07-29] MEDS ORDERED: TORSEMIDE 20 MG TAB PO SCH (09:00)
[2022-07-29] MEDS ORDERED: traMADol 50 MG TAB PO PRN (10:30)
[2022-07-29] MEDS ORDERED: PILL CUTTER 1 EACH XX PRN (10:40)
[2022-07-29] MEDS ORDERED: FUROSEMIDE 100MG/10ML VIAL IV ONE (11:00)
[2022-07-29] MEDS ORDERED: LABETALOL 100MG/20ML VIAL IV SCH (12:00)
[2022-07-29 12:03] LABS: PHOSPHORUS LEVEL 5.2 MG/DL (2.4-5.1)
[2022-07-29 12:17] LABS: PERCENT SATURATION 16.3 % (19.7-50.0)
[2022-07-29] MEDS: MIRALAX *UNIT DOSE* 17GM PACKET PO SCH (13:04)
[2022-07-29] MEDS ORDERED: LEVOTAB10 PO (13:07)
[2022-07-29] MEDS ORDERED: HOME MED LIST COMPLETE! XX SCH (13:10)
[2022-07-29] MEDS ORDERED: ALBUTEROL 90 MCG/ACT 8GM HFA INHALER INH PRN (13:25)
[2022-07-29] MEDS: MULTIVITAMINS/MINERALS THERAP 1 TAB PO SCH (15:50)
[2022-07-29] MEDS: ASPIRIN 81MG ENTERIC TABLET PO SCH (15:51)
[2022-07-29] MEDS: FERROUS GLUCONATE 324 MG TAB PO SCH (15:51)
[2022-07-29] MEDS: APIXABAN 2.5 MG TAB (ELIQUIS) PO SCH ×2 (15:51→22:14)
[2022-07-29] MEDS: LEVOTHYROXINE 25MCG TABLET (0.025MG) PO SCH (15:51)
[2022-07-29] MEDS: ATORVASTATIN 20 MG TAB PO SCH (15:51)
[2022-07-29] MEDS: ACETAMINOPHEN TAB 650MG DOSE (2X325MG) PO PRN (15:55)
[2022-07-29] MEDS: VANICREAM MOISTURIZING SKIN CREAM 113GM TUBE TOP PRN (16:21)
[2022-07-29] MEDS: ADVAIR HFA 115/21MCG INHALER INH SCH (19:27)
[2022-07-29] MEDS: amLODIPine 5 MG TAB PO SCH (19:51)
[2022-07-29] MEDS: TAMSULOSIN 0.4 MG CAP PO SCH (22:13)
[2022-07-29] MEDS: DOCUSATE SODIUM 100MG CAPSULE PO SCH (22:14)
[2022-07-29] MEDS: allopurinoL 300 MG TAB PO SCH (22:15)
[2022-07-30] VITALS (7 sets, daily range): BP systolic 121–175; BP diastolic 69–92
[2022-07-30] MEDS ORDERED: **hydrALAZINE HCL** 25 MG TAB PO ONE (00:35)
[2022-07-30 05:29] LABS: BASO % 0.4 % (0.0-1.0); EOS # 0.9 10^3/uL (0.0-0.5); EOS % 13.1 % (0.0-3.0); HEMATOCRIT 27.6 % (42.0-52.0); HEMOGLOBIN 9.1 g/dl (13.5-17.5); LYMPH # 0.8 10^3/uL (1.5-5.0); MEAN CORPUSCULAR HEMOGLOBIN 34.2 pg (27.0-33.0); MEAN CORPUSCULAR VOLUME 103.8 fl (80.0-96.0); MONO # 0.5 10^3/uL (0.0-0.8); NEUTROPHILS # 4.6 10^3/uL (1.5-8.5); NEUTROPHILS % 67.2 % (36.0-66.0); PLATELET COUNT, AUTOMATED 127 10^3/uL (150-450); RED BLOOD COUNT 2.66 10^6/uL (4.30-6.10); WHITE BLOOD COUNT 6.9 10^3/uL (4.0-10.0)
[2022-07-30 05:53] LABS: CALCIUM LEVEL 7.9 MG/DL (8.3-10.6); CREATININE FOR GFR 3.62 MG/DL (0.70-1.30); GLOMERULAR FILTRATION RATE 17.1 (>35); POTASSIUM SERUM 4.8 MMOL/L (3.5-5.1)
[2022-07-30] MEDS: LEVOTHYROXINE 25MCG TABLET (0.025MG) PO SCH (06:26)
[2022-07-30] MEDS: TIOTROPIUM INHALER/CAPSULE (SPIRIVA) INH SCH (07:58)
[2022-07-30] MEDS: ADVAIR HFA 115/21MCG INHALER INH SCH ×2 (07:59→18:58)
[2022-07-30] MEDS: MIRALAX *UNIT DOSE* 17GM PACKET PO SCH (08:41)
[2022-07-30] MEDS: ASPIRIN 81MG ENTERIC TABLET PO SCH (08:42)
[2022-07-30] MEDS: ATORVASTATIN 20 MG TAB PO SCH (08:42)
[2022-07-30] MEDS: ACETAMINOPHEN TAB 650MG DOSE (2X325MG) PO PRN (08:42)
[2022-07-30] MEDS: CARVedilol 12.5 MG TAB PO SCH ×2 (08:43→20:25)
[2022-07-30] MEDS: MULTIVITAMINS/MINERALS THERAP 1 TAB PO SCH (08:43)
[2022-07-30] MEDS: APIXABAN 2.5 MG TAB (ELIQUIS) PO SCH ×2 (08:44→20:25)
[2022-07-30] MEDS: amLODIPine 5 MG TAB PO SCH (08:44)
[2022-07-30] MEDS: FERROUS GLUCONATE 324 MG TAB PO SCH (08:44)
[2022-07-30] MEDS: DOCUSATE SODIUM 100MG CAPSULE PO SCH ×2 (08:44→20:24)
[2022-07-30 08:57] LABS: MAGNESIUM LEVEL 1.6 MG/DL (1.8-2.4)
[2022-07-30] MEDS ORDERED: TORSEMIDE 20 MG TAB PO SCH (09:00)
[2022-07-30] MEDS: MAG SULF 1GM/100ML (MAG RUN) 1 GM in IV 1 EA IV SCH ×2 (09:45→10:54)
[2022-07-30] MEDS ORDERED: FERRIC CARBOXYMALTOSE INJ 750 MG, VIAL MATE ADAPTER 1 EACH in NS 250 ML IV ONE (12:00)
[2022-07-30] MEDS: MAGNESIUM OXIDE 400MG TAB (MAG-OX) PO SCH ×2 (12:04→20:24)
[2022-07-30] MEDS ORDERED: FUROSEMIDE 100MG/10ML VIAL IV ONE (14:00)
[2022-07-30] MEDS: TAMSULOSIN 0.4 MG CAP PO SCH (20:24)
[2022-07-30] MEDS: allopurinoL 300 MG TAB PO SCH (20:24)
[2022-07-31 04:13] VITALS: BP 133/68
[2022-07-31] MEDS: LEVOTHYROXINE 25MCG TABLET (0.025MG) PO SCH (05:30)
[2022-07-31 06:14] LABS: BASO % 0.3 % (0.0-1.0); EOS # 0.9 10^3/uL (0.0-0.5); EOS % 13.8 % (0.0-3.0); HEMATOCRIT 25.6 % (42.0-52.0); HEMOGLOBIN 8.4 g/dl (13.5-17.5); LYMPH # 0.7 10^3/uL (1.5-5.0); LYMPH % 11.6 % (24.0-44.0); MEAN CORPUSCULAR HEMOGLOBIN 34.4 pg (27.0-33.0); MEAN CORPUSCULAR HGB CONC 32.8 g/dl (32.0-36.5); MEAN CORPUSCULAR VOLUME 104.9 fl (80.0-96.0); MONO # 0.5 10^3/uL (0.0-0.8); MONO % 7.6 % (2.0-8.0); NEUTROPHILS # 4.1 10^3/uL (1.5-8.5); NEUTROPHILS % 66.2 % (36.0-66.0); PLATELET COUNT, AUTOMATED 133 10^3/uL (150-450); RED BLOOD COUNT 2.44 10^6/uL (4.30-6.10); WHITE BLOOD COUNT 6.2 10^3/uL (4.0-10.0)
[2022-07-31 06:41] LABS: CALCIUM LEVEL 7.9 MG/DL (8.3-10.6); CREATININE FOR GFR 3.7 MG/DL (0.70-1.30); GLOMERULAR FILTRATION RATE 16.7 (>35); POTASSIUM SERUM 4.7 MMOL/L (3.5-5.1)
[2022-07-31] MEDS: ADVAIR HFA 115/21MCG INHALER INH SCH ×2 (07:12→19:19)
[2022-07-31] MEDS: TIOTROPIUM INHALER/CAPSULE (SPIRIVA) INH SCH (07:12)
[2022-07-31 07:40] VITALS: BP 160/82
[2022-07-31] MEDS: MIRALAX *UNIT DOSE* 17GM PACKET PO SCH (08:17)
[2022-07-31] MEDS: ATORVASTATIN 20 MG TAB PO SCH (08:17)
[2022-07-31] MEDS: DOCUSATE SODIUM 100MG CAPSULE PO SCH ×2 (08:17→20:17)
[2022-07-31] MEDS: MAGNESIUM OXIDE 400MG TAB (MAG-OX) PO SCH ×2 (08:18→20:17)
[2022-07-31] MEDS: FERROUS GLUCONATE 324 MG TAB PO SCH (08:18)
[2022-07-31] MEDS: CARVedilol 12.5 MG TAB PO SCH ×2 (08:18→20:18)
[2022-07-31] MEDS: MULTIVITAMINS/MINERALS THERAP 1 TAB PO SCH (08:18)
[2022-07-31] MEDS: ASPIRIN 81MG ENTERIC TABLET PO SCH (08:18)
[2022-07-31] MEDS: APIXABAN 2.5 MG TAB (ELIQUIS) PO SCH ×2 (08:18→20:18)
[2022-07-31] MEDS: ACETAMINOPHEN TAB 650MG DOSE (2X325MG) PO PRN ×2 (08:37→16:25)
[2022-07-31] MEDS ORDERED: TORSEMIDE 100 MG TAB PO SCH ×2 (09:00→17:00)
[2022-07-31 10:00] LABS: MAGNESIUM LEVEL 2.2 MG/DL (1.8-2.4)
[2022-07-31 10:53] VITALS: BP 130/73
[2022-07-31 12:13] VITALS: BP 138/74
[2022-07-31 15:59] VITALS: BP 120/58
[2022-07-31] MEDS: TAMSULOSIN 0.4 MG CAP PO SCH (20:16)
[2022-07-31] MEDS: allopurinoL 300 MG TAB PO SCH (20:17)
[2022-07-31 20:28] VITALS: BP 153/73
[2022-08-01] VITALS (8 sets, daily range): BP systolic 124–164; BP diastolic 66–87
[2022-08-01] MEDS: LEVOTHYROXINE 25MCG TABLET (0.025MG) PO SCH (05:42)
[2022-08-01 06:37] LABS: BASO % 0.3 % (0.0-1.0); EOS # 0.9 10^3/uL (0.0-0.5); EOS % 14.5 % (0.0-3.0); HEMATOCRIT 26.2 % (42.0-52.0); HEMOGLOBIN 8.6 g/dl (13.5-17.5); LYMPH # 0.7 10^3/uL (1.5-5.0); LYMPH % 12.1 % (24.0-44.0); MEAN CORPUSCULAR HEMOGLOBIN 34.3 pg (27.0-33.0); MEAN CORPUSCULAR HGB CONC 32.8 g/dl (32.0-36.5); MEAN CORPUSCULAR VOLUME 104.4 fl (80.0-96.0); MONO # 0.4 10^3/uL (0.0-0.8); MONO % 7.3 % (2.0-8.0); NEUTROPHILS % 65.6 % (36.0-66.0); PLATELET COUNT, AUTOMATED 127 10^3/uL (150-450); RED BLOOD COUNT 2.51 10^6/uL (4.30-6.10)
[2022-08-01 07:12] LABS: CALCIUM LEVEL 8.3 MG/DL (8.3-10.6); CREATININE FOR GFR 3.82 MG/DL (0.70-1.30); GLOMERULAR FILTRATION RATE 16.1 (>35); MAGNESIUM LEVEL 2.3 MG/DL (1.8-2.4)
[2022-08-01] MEDS: TIOTROPIUM INHALER/CAPSULE (SPIRIVA) INH SCH (07:16)
[2022-08-01] MEDS: ADVAIR HFA 115/21MCG INHALER INH SCH ×2 (07:16→19:41)
[2022-08-01] MEDS: MAGNESIUM OXIDE 400MG TAB (MAG-OX) PO SCH ×2 (09:42→21:10)
[2022-08-01] MEDS: APIXABAN 2.5 MG TAB (ELIQUIS) PO SCH ×2 (09:42→21:10)
[2022-08-01] MEDS: MULTIVITAMINS/MINERALS THERAP 1 TAB PO SCH (09:42)
[2022-08-01] MEDS: FUROSEMIDE 100MG/10ML VIAL IV SCH ×3 (09:43→21:53)
[2022-08-01] MEDS: ACETAMINOPHEN TAB 650MG DOSE (2X325MG) PO PRN (09:43)
[2022-08-01] MEDS: DOCUSATE SODIUM 100MG CAPSULE PO SCH ×2 (09:43→21:11)
[2022-08-01] MEDS: ASPIRIN 81MG ENTERIC TABLET PO SCH (09:44)
[2022-08-01] MEDS: ATORVASTATIN 20 MG TAB PO SCH (09:44)
[2022-08-01] MEDS: FERROUS GLUCONATE 324 MG TAB PO SCH (09:44)
[2022-08-01] MEDS: MIRALAX *UNIT DOSE* 17GM PACKET PO SCH (09:44)
[2022-08-01] MEDS: CARVedilol 12.5 MG TAB PO SCH (09:44)
[2022-08-01] MEDS: TAMSULOSIN 0.4 MG CAP PO SCH (21:10)
[2022-08-01] MEDS: allopurinoL 300 MG TAB PO SCH (21:10)
[2022-08-01] MEDS: CARVedilol 6.25 MG TAB PO SCH (21:11)
[2022-08-01] MEDS: VANICREAM MOISTURIZING SKIN CREAM 113GM TUBE TOP PRN (21:12)
[2022-08-02] MEDS: FUROSEMIDE 100MG/10ML VIAL IV SCH ×2 (03:26→10:37)
[2022-08-02 04:00] VITALS: BP 167/94
[2022-08-02 04:12] LABS: BASO % 0.5 % (0.0-1.0); EOS # 0.9 10^3/uL (0.0-0.5); EOS % 13.8 % (0.0-3.0); HEMATOCRIT 26.8 % (42.0-52.0); HEMOGLOBIN 8.8 g/dl (13.5-17.5); LYMPH # 0.8 10^3/uL (1.5-5.0); MEAN CORPUSCULAR HEMOGLOBIN 34.1 pg (27.0-33.0); MEAN CORPUSCULAR HGB CONC 32.8 g/dl (32.0-36.5); MEAN CORPUSCULAR VOLUME 103.9 fl (80.0-96.0); MONO # 0.5 10^3/uL (0.0-0.8); NEUTROPHILS # 4.3 10^3/uL (1.5-8.5); NEUTROPHILS % 65.4 % (36.0-66.0); PLATELET COUNT, AUTOMATED 140 10^3/uL (150-450); RED BLOOD COUNT 2.58 10^6/uL (4.30-6.10); WHITE BLOOD COUNT 6.5 10^3/uL (4.0-10.0)
[2022-08-02 04:36] LABS: CALCIUM LEVEL 8.5 MG/DL (8.3-10.6); CREATININE FOR GFR 3.88 MG/DL (0.70-1.30); GLOMERULAR FILTRATION RATE 15.8 (>35); POTASSIUM SERUM 5.2 MMOL/L (3.5-5.1)
[2022-08-02] MEDS: LEVOTHYROXINE 25MCG TABLET (0.025MG) PO SCH (05:46)
[2022-08-02] MEDS: ADVAIR HFA 115/21MCG INHALER INH SCH ×2 (07:28→19:40)
[2022-08-02] MEDS: TIOTROPIUM INHALER/CAPSULE (SPIRIVA) INH SCH (07:28)
[2022-08-02 08:22] VITALS: BP 148/68
[2022-08-02] MEDS: APIXABAN 2.5 MG TAB (ELIQUIS) PO SCH (08:27)
[2022-08-02] MEDS: MULTIVITAMINS/MINERALS THERAP 1 TAB PO SCH (08:31)
[2022-08-02] MEDS: MAGNESIUM OXIDE 400MG TAB (MAG-OX) PO SCH ×2 (08:31→20:58)
[2022-08-02] MEDS: MIRALAX *UNIT DOSE* 17GM PACKET PO SCH (08:31)
[2022-08-02] MEDS: ASPIRIN 81MG ENTERIC TABLET PO SCH (08:31)
[2022-08-02] MEDS: CARVedilol 6.25 MG TAB PO SCH ×2 (08:32→20:58)
[2022-08-02] MEDS: FERROUS GLUCONATE 324 MG TAB PO SCH (08:32)
[2022-08-02] MEDS: DOCUSATE SODIUM 100MG CAPSULE PO SCH ×2 (08:32→20:58)
[2022-08-02] MEDS: ATORVASTATIN 20 MG TAB PO SCH (08:32)
[2022-08-02] MEDS ORDERED: PATIROMER SORBITEX CALCIUM 8.4 GM POWDER PACKET (VELTASSA) PO ONE (10:00)
[2022-08-02 12:07] VITALS: BP 125/65
[2022-08-02] MEDS: FUROSEMIDE injection 250 MG in D5W 225 ML IV SCH (12:48)
[2022-08-02] MEDS: ACETAMINOPHEN TAB 650MG DOSE (2X325MG) PO PRN (13:00)
[2022-08-02 20:35] VITALS: BP 143/64
[2022-08-02] MEDS: allopurinoL 300 MG TAB PO SCH (20:58)
[2022-08-02] MEDS: TAMSULOSIN 0.4 MG CAP PO SCH (20:58)
[2022-08-03] MEDS: FUROSEMIDE injection 250 MG in D5W 225 ML IV SCH (02:59)
[2022-08-03 05:14] VITALS: BP 134/86
[2022-08-03] MEDS: LEVOTHYROXINE 25MCG TABLET (0.025MG) PO SCH (05:54)
[2022-08-03 06:09] LABS: HEMATOCRIT 26.2 % (42.0-52.0); HEMOGLOBIN 8.5 g/dl (13.5-17.5); MEAN CORPUSCULAR HEMOGLOBIN 33.5 pg (27.0-33.0); MEAN CORPUSCULAR HGB CONC 32.4 g/dl (32.0-36.5); MEAN CORPUSCULAR VOLUME 103.1 fl (80.0-96.0); PLATELET COUNT, AUTOMATED 131 10^3/uL (150-450); RED BLOOD COUNT 2.54 10^6/uL (4.30-6.10); WHITE BLOOD COUNT 6.3 10^3/uL (4.0-10.0)
[2022-08-03 06:23] LABS: INR 1.19; PROTHROMBIN TIME 15.4 SECONDS (12.5-14.5)
[2022-08-03 06:40] LABS: CALCIUM LEVEL 8.4 MG/DL (8.3-10.6); CREATININE FOR GFR 3.97 MG/DL (0.70-1.30); GLOMERULAR FILTRATION RATE 15.4 (>35); MAGNESIUM LEVEL 2.4 MG/DL (1.8-2.4); POTASSIUM SERUM 4.9 MMOL/L (3.5-5.1)
[2022-08-03] MEDS: TIOTROPIUM INHALER/CAPSULE (SPIRIVA) INH SCH (07:27)
[2022-08-03] MEDS: ADVAIR HFA 115/21MCG INHALER INH SCH ×2 (07:27→19:41)
[2022-08-03 07:47] VITALS: BP 138/68
[2022-08-03] MEDS: MIRALAX *UNIT DOSE* 17GM PACKET PO SCH (09:00)
[2022-08-03] MEDS: ATORVASTATIN 20 MG TAB PO SCH (09:20)
[2022-08-03] MEDS: DOCUSATE SODIUM 100MG CAPSULE PO SCH ×2 (09:20→20:23)
[2022-08-03] MEDS: FERROUS GLUCONATE 324 MG TAB PO SCH (09:20)
[2022-08-03] MEDS: MULTIVITAMINS/MINERALS THERAP 1 TAB PO SCH (09:20)
[2022-08-03] MEDS: MAGNESIUM OXIDE 400MG TAB (MAG-OX) PO SCH (09:21)
[2022-08-03] MEDS: CARVedilol 6.25 MG TAB PO SCH ×2 (09:21→20:23)
[2022-08-03] MEDS: ASPIRIN 81MG ENTERIC TABLET PO SCH (09:21)
[2022-08-03 12:21] VITALS: BP 123/84
[2022-08-03] MEDS ORDERED: FERRIC CARBOXYMALTOSE INJ 750 MG, VIAL MATE ADAPTER 1 EACH in NS 250 ML IV ONE (13:00)
[2022-08-03 19:50] VITALS: BP 153/70
[2022-08-03] MEDS: allopurinoL 300 MG TAB PO SCH (20:23)
[2022-08-03] MEDS: TAMSULOSIN 0.4 MG CAP PO SCH (20:23)
[2022-08-04 05:01] VITALS: BP 166/74
[2022-08-04] MEDS: LEVOTHYROXINE 25MCG TABLET (0.025MG) PO SCH (05:20)
[2022-08-04 06:10] LABS: HEMATOCRIT 27.4 % (42.0-52.0); MEAN CORPUSCULAR HGB CONC 32.8 g/dl (32.0-36.5); MEAN CORPUSCULAR VOLUME 103.4 fl (80.0-96.0); PLATELET COUNT, AUTOMATED 137 10^3/uL (150-450); RED BLOOD COUNT 2.65 10^6/uL (4.30-6.10); WHITE BLOOD COUNT 7.1 10^3/uL (4.0-10.0)
[2022-08-04 06:30] LABS: BLOOD UREA NITROGEN 73 MG/DL (9-23); CARBON DIOXIDE LEVEL 24 MMOL/L (20-31); CHLORIDE LEVEL 111 MMOL/L (98-107); CREATININE FOR GFR 3.93 MG/DL (0.70-1.30); GLOMERULAR FILTRATION RATE 15.5 (>35); GLUCOSE, FASTING 100 MG/DL (74-106); MAGNESIUM LEVEL 2.6 MG/DL (1.8-2.4); POTASSIUM SERUM 4.9 MMOL/L (3.5-5.1); SODIUM LEVEL 144 MMOL/L (136-145)
[2022-08-04 06:44] LABS: HEPATITIS B SURFACE ANTIGEN NEGATIVE (NEGATIVE)
[2022-08-04 07:04] LABS: HEPATITIS B CORE ANTIBODY IGM NEGATIVE (NEGATIVE)
[2022-08-04 07:05] LABS: HEPATITIS C VIRUS ABY INDEX 0.1 INDEX (<0.8)
[2022-08-04] MEDS: TIOTROPIUM INHALER/CAPSULE (SPIRIVA) INH SCH (07:12)
[2022-08-04] MEDS: ADVAIR HFA 115/21MCG INHALER INH SCH ×2 (07:12→19:03)
[2022-08-04 08:00] VITALS: BP 131/70
[2022-08-04] MEDS ORDERED: MAGNESIUM OXIDE 400MG TAB (MAG-OX) PO SCH (09:00)
[2022-08-04] MEDS: ASPIRIN 81MG ENTERIC TABLET PO SCH (09:25)
[2022-08-04] MEDS: CARVedilol 6.25 MG TAB PO SCH ×2 (09:25→21:27)
[2022-08-04] MEDS: FERROUS GLUCONATE 324 MG TAB PO SCH (09:26)
[2022-08-04] MEDS: ATORVASTATIN 20 MG TAB PO SCH (09:26)
[2022-08-04] MEDS: TORSEMIDE 100 MG TAB PO SCH (09:26)
[2022-08-04] MEDS: DOCUSATE SODIUM 100MG CAPSULE PO SCH ×2 (09:26→21:27)
[2022-08-04] MEDS: MIRALAX *UNIT DOSE* 17GM PACKET PO SCH (09:26)
[2022-08-04 16:00] VITALS: BP 147/80
[2022-08-04 20:16] VITALS: BP 131/79
[2022-08-04] MEDS: allopurinoL 300 MG TAB PO SCH (21:27)
[2022-08-04] MEDS: TAMSULOSIN 0.4 MG CAP PO SCH (21:27)
[2022-08-05] VITALS (9 sets, daily range): BP systolic 132–169; BP diastolic 69–96
[2022-08-05 04:22] LABS: HEMOGLOBIN 9.5 g/dl (13.5-17.5); MEAN CORPUSCULAR HEMOGLOBIN 34.5 pg (27.0-33.0); MEAN CORPUSCULAR HGB CONC 32.8 g/dl (32.0-36.5); MEAN CORPUSCULAR VOLUME 105.5 fl (80.0-96.0); PLATELET COUNT, AUTOMATED 145 10^3/uL (150-450); RED BLOOD COUNT 2.75 10^6/uL (4.30-6.10)
[2022-08-05 04:48] LABS: CALCIUM LEVEL 8.5 MG/DL (8.3-10.6); CREATININE FOR GFR 4.01 MG/DL (0.70-1.30); GLOMERULAR FILTRATION RATE 15.2 (>35); MAGNESIUM LEVEL 2.4 MG/DL (1.8-2.4); POTASSIUM SERUM 5.1 MMOL/L (3.5-5.1)
[2022-08-05] MEDS: LEVOTHYROXINE 25MCG TABLET (0.025MG) PO SCH (06:19)
[2022-08-05] MEDS: TIOTROPIUM INHALER/CAPSULE (SPIRIVA) INH SCH (07:22)
[2022-08-05] MEDS: ADVAIR HFA 115/21MCG INHALER INH SCH ×2 (07:22→19:30)
[2022-08-05] MEDS: MIRALAX *UNIT DOSE* 17GM PACKET PO SCH (09:00)
[2022-08-05] MEDS: ASPIRIN 81MG ENTERIC TABLET PO SCH (09:00)
[2022-08-05] MEDS: DOCUSATE SODIUM 100MG CAPSULE PO SCH ×2 (09:35→20:11)
[2022-08-05] MEDS: FERROUS GLUCONATE 324 MG TAB PO SCH (09:35)
[2022-08-05] MEDS: ATORVASTATIN 20 MG TAB PO SCH (09:35)
[2022-08-05] MEDS: TORSEMIDE 100 MG TAB PO SCH (09:35)
[2022-08-05] MEDS: CARVedilol 6.25 MG TAB PO SCH ×2 (09:36→20:11)
[2022-08-05] MEDS ORDERED: LIDOCAINE 2% 100MG/5ML SDV (FOR ANES.) As Ordered ONE (14:18)
[2022-08-05] MEDS ORDERED: HEPARIN SOD (PORCINE) 5000UNITS/ML 1ML VIAL/SYRINGE As Ordered ONE (14:18)
[2022-08-05] MEDS ORDERED: propofoL 200 MG/20 ML VIAL As Ordered ONE ×2 (14:18→14:54)
[2022-08-05] MEDS ORDERED: fentaNYL 100 MCG/2 ML INJECTION As Ordered ONE (14:18)
[2022-08-05] MEDS ORDERED: ONDANSETRON 4MG 2ML VIAL As Ordered ONE (14:18)
[2022-08-05] MEDS ORDERED: LIDOCAINE 1% SDV 30ML VIAL As Ordered ONE (14:18)
[2022-08-05] MEDS ORDERED: DEXTROSE 50% 50ML SYRINGE As Ordered ONE (14:44)
[2022-08-05] MEDS ORDERED: ETOMIDATE INJ 20MG/10ML VIAL As Ordered ONE (14:50)
[2022-08-05] MEDS ORDERED: ROCURONIUM BROMIDE 50MG/5ML VIAL As Ordered ONE (14:53)
[2022-08-05] MEDS ORDERED: ceFAZolin 1GM VIAL As Ordered ONE (15:20)
[2022-08-05] MEDS ORDERED: ACETAMINOPHEN 1000MG 100ML IV BAG As Ordered ONE (15:39)
[2022-08-05] MEDS ORDERED: SUGAMMADEX SODIUM 500 MG/5 ML VIAL (BRIDION) As Ordered ONE (15:44)
[2022-08-05] MEDS ORDERED: fentaNYL 100 MCG/2 ML INJECTION IV PRN (15:55)
[2022-08-05] MEDS ORDERED: ONDANSETRON 4MG 2ML VIAL IV PRN (15:55)
[2022-08-05] MEDS: TAMSULOSIN 0.4 MG CAP PO SCH (20:10)
[2022-08-05] MEDS: allopurinoL 300 MG TAB PO SCH (20:11)
[2022-08-06 02:31] VITALS: BP 130/83
[2022-08-06 05:15] VITALS: BP 134/95
[2022-08-06] MEDS: LEVOTHYROXINE 25MCG TABLET (0.025MG) PO SCH (05:29)
[2022-08-06 05:55] LABS: HEMATOCRIT 28.4 % (42.0-52.0); HEMOGLOBIN 9.2 g/dl (13.5-17.5); MEAN CORPUSCULAR HEMOGLOBIN 34.3 pg (27.0-33.0); MEAN CORPUSCULAR HGB CONC 32.4 g/dl (32.0-36.5); PLATELET COUNT, AUTOMATED 143 10^3/uL (150-450); RED BLOOD COUNT 2.68 10^6/uL (4.30-6.10); WHITE BLOOD COUNT 5.7 10^3/uL (4.0-10.0)
[2022-08-06 06:30] LABS: CALCIUM LEVEL 8.2 MG/DL (8.3-10.6); CREATININE FOR GFR 4.21 MG/DL (0.70-1.30); GLOMERULAR FILTRATION RATE 14.4 (>35); MAGNESIUM LEVEL 2.4 MG/DL (1.8-2.4); POTASSIUM SERUM 5.6 MMOL/L (3.5-5.1)
[2022-08-06] MEDS: TIOTROPIUM INHALER/CAPSULE (SPIRIVA) INH SCH (07:18)
[2022-08-06] MEDS: ADVAIR HFA 115/21MCG INHALER INH SCH ×2 (07:18→19:17)
[2022-08-06] MEDS: CARVedilol 6.25 MG TAB PO SCH ×2 (09:43→22:27)
[2022-08-06] MEDS: FERROUS GLUCONATE 324 MG TAB PO SCH (09:43)
[2022-08-06] MEDS: MIRALAX *UNIT DOSE* 17GM PACKET PO SCH (09:43)
[2022-08-06] MEDS: ATORVASTATIN 20 MG TAB PO SCH (09:43)
[2022-08-06] MEDS: ASPIRIN 81MG ENTERIC TABLET PO SCH (09:43)
[2022-08-06] MEDS: DOCUSATE SODIUM 100MG CAPSULE PO SCH ×2 (09:43→22:27)
[2022-08-06] MEDS: TORSEMIDE 100 MG TAB PO SCH (09:43)
[2022-08-06] MEDS: ACETAMINOPHEN TAB 650MG DOSE (2X325MG) PO PRN (09:48)
[2022-08-06 10:00] VITALS: BP 121/71
[2022-08-06] MEDS ORDERED: metOLazone 5 MG TAB PO ONE (10:10)
[2022-08-06] MEDS: PATIROMER SORBITEX CALCIUM 8.4 GM POWDER PACKET (VELTASSA) PO SCH (12:49)
[2022-08-06 14:00] VITALS: BP 119/72
[2022-08-06] MEDS ORDERED: FUROSEMIDE 100MG/10ML VIAL IV ONE (15:00)
[2022-08-06 15:25] VITALS: BP 129/75
[2022-08-06 21:30] VITALS: BP 129/70
[2022-08-06] MEDS: allopurinoL 300 MG TAB PO SCH (22:27)
[2022-08-06] MEDS: TAMSULOSIN 0.4 MG CAP PO SCH (22:27)
[2022-08-07] MEDS: LEVOTHYROXINE 25MCG TABLET (0.025MG) PO SCH (05:04)
[2022-08-07 05:40] VITALS: BP 136/75
[2022-08-07 06:27] LABS: HEMATOCRIT 27.3 % (42.0-52.0); HEMOGLOBIN 8.7 g/dl (13.5-17.5); MEAN CORPUSCULAR HEMOGLOBIN 33.5 pg (27.0-33.0); MEAN CORPUSCULAR HGB CONC 31.9 g/dl (32.0-36.5); PLATELET COUNT, AUTOMATED 157 10^3/uL (150-450); WHITE BLOOD COUNT 10.1 10^3/uL (4.0-10.0)
[2022-08-07 06:57] LABS: CALCIUM LEVEL 8.1 MG/DL (8.3-10.6); CREATININE FOR GFR 4.6 MG/DL (0.70-1.30); MAGNESIUM LEVEL 2.2 MG/DL (1.8-2.4); POTASSIUM SERUM 5.3 MMOL/L (3.5-5.1)
[2022-08-07] MEDS: TIOTROPIUM INHALER/CAPSULE (SPIRIVA) INH SCH (08:09)
[2022-08-07] MEDS: ADVAIR HFA 115/21MCG INHALER INH SCH ×2 (08:10→20:14)
[2022-08-07] MEDS: FERROUS GLUCONATE 324 MG TAB PO SCH (09:42)
[2022-08-07] MEDS: TORSEMIDE 100 MG TAB PO SCH ×2 (09:42→20:24)
[2022-08-07] MEDS: MIRALAX *UNIT DOSE* 17GM PACKET PO SCH (09:42)
[2022-08-07] MEDS: ASPIRIN 81MG ENTERIC TABLET PO SCH (09:43)
[2022-08-07] MEDS: ATORVASTATIN 20 MG TAB PO SCH (09:43)
[2022-08-07] MEDS: CARVedilol 6.25 MG TAB PO SCH ×2 (09:43→20:20)
[2022-08-07] MEDS: DOCUSATE SODIUM 100MG CAPSULE PO SCH ×2 (09:43→20:21)
[2022-08-07] MEDS: PATIROMER SORBITEX CALCIUM 8.4 GM POWDER PACKET (VELTASSA) PO SCH (11:43)
[2022-08-07] MEDS: APIXABAN 2.5 MG TAB (ELIQUIS) PO SCH ×2 (11:44→20:21)
[2022-08-07 14:00] VITALS: BP 105/64
[2022-08-07 20:18] VITALS: BP 105/71
[2022-08-07] MEDS: TAMSULOSIN 0.4 MG CAP PO SCH (20:21)
[2022-08-07] MEDS: allopurinoL 300 MG TAB PO SCH (20:21)
[2022-08-07 21:20] VITALS: BP 136/86
[2022-08-08 04:40] VITALS: BP 141/85
[2022-08-08] MEDS: LEVOTHYROXINE 25MCG TABLET (0.025MG) PO SCH (05:10)
[2022-08-08 06:16] LABS: HEMATOCRIT 26.9 % (42.0-52.0); HEMOGLOBIN 8.7 g/dl (13.5-17.5); MEAN CORPUSCULAR HGB CONC 32.3 g/dl (32.0-36.5); MEAN CORPUSCULAR VOLUME 105.1 fl (80.0-96.0); PLATELET COUNT, AUTOMATED 166 10^3/uL (150-450); RED BLOOD COUNT 2.56 10^6/uL (4.30-6.10); WHITE BLOOD COUNT 9.2 10^3/uL (4.0-10.0)
[2022-08-08 06:41] LABS: CALCIUM LEVEL 7.8 MG/DL (8.3-10.6); CREATININE FOR GFR 4.71 MG/DL (0.70-1.30); GLOMERULAR FILTRATION RATE 12.6 (>35); MAGNESIUM LEVEL 2.1 MG/DL (1.8-2.4); POTASSIUM SERUM 5.1 MMOL/L (3.5-5.1)
[2022-08-08] MEDS: ADVAIR HFA 115/21MCG INHALER INH SCH (07:28)
[2022-08-08] MEDS: TIOTROPIUM INHALER/CAPSULE (SPIRIVA) INH SCH (07:31)
[2022-08-08] MEDS: DOCUSATE SODIUM 100MG CAPSULE PO SCH (08:17)
[2022-08-08 08:18] VITALS: BP 141/85
[2022-08-08] MEDS: CARVedilol 6.25 MG TAB PO SCH (08:18)
[2022-08-08] MEDS: APIXABAN 2.5 MG TAB (ELIQUIS) PO SCH (08:18)
[2022-08-08] MEDS: ASPIRIN 81MG ENTERIC TABLET PO SCH (08:18)
[2022-08-08] MEDS: FERROUS GLUCONATE 324 MG TAB PO SCH (08:18)
[2022-08-08] MEDS: TORSEMIDE 100 MG TAB PO SCH (08:18)
[2022-08-08] MEDS: ATORVASTATIN 20 MG TAB PO SCH (08:18)
[2022-08-08] MEDS: MIRALAX *UNIT DOSE* 17GM PACKET PO SCH (08:19)
[2022-08-08] MEDS: ACETAMINOPHEN TAB 650MG DOSE (2X325MG) PO PRN (08:19)
[2022-08-08] MEDS ORDERED: TORS100T PO (11:36)
[2022-08-08] MEDS: PATIROMER SORBITEX CALCIUM 8.4 GM POWDER PACKET (VELTASSA) PO SCH (12:56)
== END 2022-08-08 13:31 | disposition home or self-care (01) | DRG 673 ==
LOC: M ED 20:31 → M ED INP 07-29 02:22 → M ICU 07-29 05:01 → M PCU 07-29 16:57 → M MSPAV 08-05 17:02
PROVIDERS: ADMIT Family Medicine; ATTEND Internal Medicine
PROC: 0WHG43Z Insertion of Infusion Device into Peritoneal Cavity, Percutaneous Endoscopic Approach (ICD-10-PCS; principal; 2022-08-05 15:00)
DX: N17.9 Acute kidney failure, unspecified (principal); I50.33 Acute on chronic diastolic (congestive) heart failure; I16.1 Hypertensive emergency; E87.1 Hypo-osmolality and hyponatremia; J98.11 Atelectasis; E87.0 Hyperosmolality and hypernatremia; I13.2 Hypertensive heart and chronic kidney disease with heart failure and with stage 5 chronic kidney disease, or end stage renal disease; E78.5 Hyperlipidemia, unspecified; I48.91 Unspecified atrial fibrillation; G47.30 Sleep apnea, unspecified; M25.552 Pain in left hip; G89.29 Other chronic pain; M16.12 Unilateral primary osteoarthritis, left hip; N40.0 Benign prostatic hyperplasia without lower urinary tract symptoms; E11.22 Type 2 diabetes mellitus with diabetic chronic kidney disease; N28.1 Cyst of kidney, acquired; M10.9 Gout, unspecified; N18.6 End stage renal disease; J44.9 Chronic obstructive pulmonary disease, unspecified; Z66 Do not resuscitate; E11.42 Type 2 diabetes mellitus with diabetic polyneuropathy; I27.20 Pulmonary hypertension, unspecified; E83.42 Hypomagnesemia; D63.1 Anemia in chronic kidney disease; I16.0 Hypertensive urgency; E87.5 Hyperkalemia; M48.061 Spinal stenosis, lumbar region without neurogenic claudication; R41.0 Disorientation, unspecified; M51.16 Intervertebral disc disorders with radiculopathy, lumbar region; E03.9 Hypothyroidism, unspecified; Z87.891 Personal history of nicotine dependence; Z86.73 Personal history of transient ischemic attack (TIA), and cerebral infarction without residual deficits; Z98.41 Cataract extraction status, right eye; Z98.42 Cataract extraction status, left eye; Z95.2 Presence of prosthetic heart valve; Z79.01 Long term (current) use of anticoagulants; Z79.82 Long term (current) use of aspirin; Z79.890 Hormone replacement therapy; Z79.899 Other long term (current) drug therapy; Z88.0 Allergy status to penicillin; Z88.6 Allergy status to analgesic agent; Z99.2 Dependence on renal dialysis

== ENCOUNTER 2022-11-23 17:13 | Inpatient (IN) | payer OTHER, MEDICARE ==
[~2022-11-23] VITALS: Ht 175.3 cm; Wt 91.1 kg
[~2022-11-23 17:13] MED LIST changes: +ALBU8.5H INH; +ATOR80TA59 PO; -CEFD300C41 PO; +CEFD300C42 PO; +LEVOTAB10 PO; +TORS100T PO; +VITMTA PO
[2022-11-23 19:20] LABS: VENOUS BASE EXCESS -1.3 (-2.0-2.0); VENOUS HCO3 25.4 MMOL/L (23.0-27.0); VENOUS O2 SATURATION 80.8 % (60.0-80.0); VENOUS PARTIAL PRESSURE CO2 51.4 mmHg (38.0-50.0); VENOUS PARTIAL PRESSURE O2 51.4 mmHg (30.0-50.0); VENOUS PH 7.312 UNITS (7.330-7.430); VENOUS STANDARD HCO3 23.1 MMOL/L
[2022-11-23 19:32] LABS: BASO % 0.3 % (0.0-1.0); EOS # 2.3 10^3/uL (0.0-0.5); HEMATOCRIT 32.3 % (42.0-52.0); HEMOGLOBIN 10.7 g/dl (13.5-17.5); LYMPH # 0.9 10^3/uL (1.5-5.0); LYMPH % 10.1 % (24.0-44.0); MEAN CORPUSCULAR HEMOGLOBIN 35.1 pg (27.0-33.0); MEAN CORPUSCULAR HGB CONC 33.1 g/dl (32.0-36.5); MEAN CORPUSCULAR VOLUME 105.9 fl (80.0-96.0); MONO # 0.7 10^3/uL (0.0-0.8); MONO % 7.6 % (2.0-8.0); NEUTROPHILS % 55.9 % (36.0-66.0); PLATELET COUNT, AUTOMATED 167 10^3/uL (150-450); RED BLOOD COUNT 3.05 10^6/uL (4.30-6.10); WHITE BLOOD COUNT 8.9 10^3/uL (4.0-10.0)
[2022-11-23 19:59] LABS: ALBUMIN 2.5 G/DL (3.2-5.2); BILIRUBIN,DIRECT 0.1 MG/DL (<0.4); BILIRUBIN,TOTAL 0.2 MG/DL (0.3-1.2); CALCIUM LEVEL 8.6 MG/DL (8.3-10.6); CREATININE FOR GFR 5.73 MG/DL (0.70-1.30); EOS % 25.8 % (0.0-3.0); GLOMERULAR FILTRATION RATE 10.1 (>35); POTASSIUM SERUM 3.6 MMOL/L (3.5-5.1); TOTAL PROTEIN 5.3 G/DL (5.7-8.2)
[2022-11-23 20:02] LABS: THYROID STIMULATING HORMONE 5.18 uIU/ML (0.55-4.78)
[2022-11-23] MEDS ORDERED: MOM 30ML SUSPENSION UDC PO PRN (23:55)
[2022-11-23] MEDS ORDERED: MAALOX 30 ML SUSP *UDC PO PRN (23:55)
[2022-11-24 01:03] LABS: PROCALCITONIN 0.41 ng/ml
[2022-11-24 01:50] VITALS: BP 110/86; TEMP 97.2; O2SAT 100
[2022-11-24] MEDS: LACTIC ACID 12% LOTION 225 GM BTL TOP SCH ×3 (03:27→20:22)
[2022-11-24 06:11] LABS: HEMOGLOBIN 10.8 g/dl (13.5-17.5); MEAN CORPUSCULAR HEMOGLOBIN 34.7 pg (27.0-33.0); MEAN CORPUSCULAR HGB CONC 32.7 g/dl (32.0-36.5); MEAN CORPUSCULAR VOLUME 106.1 fl (80.0-96.0); PLATELET COUNT, AUTOMATED 157 10^3/uL (150-450); RED BLOOD COUNT 3.11 10^6/uL (4.30-6.10); WHITE BLOOD COUNT 8.5 10^3/uL (4.0-10.0)
[2022-11-24 06:21] VITALS: BP 104/60; TEMP 97.3; O2SAT 97
[2022-11-24 06:37] LABS: CALCIUM LEVEL 8.7 MG/DL (8.3-10.6); CREATININE FOR GFR 6.09 MG/DL (0.70-1.30); GLOMERULAR FILTRATION RATE 9.4 (>35); HEMOGLOBIN A1c 5.9 % (4.0-6.0); MAGNESIUM LEVEL 1.9 MG/DL (1.8-2.4); PHOSPHORUS LEVEL 6.7 MG/DL (2.4-5.1); POTASSIUM SERUM 3.8 MMOL/L (3.5-5.1)
[2022-11-24 06:38] LABS: FREE T4 0.85 NG/DL (0.89-1.76)
[2022-11-24] MEDS ORDERED: CETI-24 PO (07:00)
[2022-11-24] MEDS ORDERED: HOME MED LIST COMPLETE! XX SCH (07:00)
[2022-11-24] MEDS ORDERED: TORS100T PO (07:00)
[2022-11-24] MEDS: LevoFLOXacin 500 MG TABLET PO ONE ×2 (09:00→10:35)
[2022-11-24] MEDS ORDERED: **UNRESOLVED NON-FORMULARY MED ORDER XX SCH (09:00)
[2022-11-24 10:00] VITALS: BP 120/64; TEMP 97.7; O2SAT 95
[2022-11-24 14:00] VITALS: BP 105/62; TEMP 97.7; O2SAT 96
[2022-11-24] MEDS: LACTOBACILLUS ACIDOPHILUS CAP (BACID) PO SCH (16:40)
[2022-11-24] MEDS ORDERED: LevoFLOXacin 250 MG TABLET PO SCH (18:00)
[2022-11-24] MEDS: APIXABAN 2.5 MG TAB (ELIQUIS) PO SCH (20:21)
[2022-11-24] MEDS: allopurinoL 300 MG TAB PO SCH (20:21)
[2022-11-24] MEDS: TAMSULOSIN 0.4 MG CAP PO SCH (20:21)
[2022-11-24] MEDS ORDERED: CETIRIZINE (ZyrTEC) 10 MG TAB PO SCH (21:00)
[2022-11-24] MEDS ORDERED: TORSEMIDE 100 MG TAB PO SCH (21:00)
[2022-11-24] MEDS ORDERED: CARVedilol 12.5 MG TAB PO SCH (21:00)
[2022-11-24] MEDS: ALBUTEROL 90 MCG/ACT 8GM HFA INHALER INH PRN (21:10)
[2022-11-24 21:18] LABS: APPEARANCE, BODY FLUID CLEAR (CLEAR); PERITONEAL DIALYSATE FL COLOR COLORLESS (COLORLESS); SOURCE, BODY FLUID PERITONEAL DIALYSATE
[2022-11-24 21:30] VITALS: BP 102/62; TEMP 97.9; O2SAT 97
[2022-11-24] MEDS: ACETAMINOPHEN TAB 650MG DOSE (2X325MG) PO PRN (22:50)
[2022-11-25 06:00] VITALS: BP 103/63; TEMP 97.5; O2SAT 98
[2022-11-25] MEDS: LEVOTHYROXINE 25MCG TABLET (0.025MG) PO SCH (06:29)
[2022-11-25 06:55] VITALS: BP 109/62; O2SAT 97
[2022-11-25] MEDS ORDERED: MAGNESIUM GLUCONATE 500 MG TAB PO SCH (09:00)
[2022-11-25] MEDS ORDERED: [UNRECOGNIZED DRUG - OTHER] PO SCH ×2 (09:00)
[2022-11-25] MEDS: MAGNESIUM GLUCONATE 500 MG TAB PO SCH ×2 (10:18→20:28)
[2022-11-25] MEDS: ASPIRIN 81MG ENTERIC TABLET PO SCH (10:18)
[2022-11-25] MEDS: MULTIVITAMINS/MINERALS THERAP 1 TAB PO SCH (10:19)
[2022-11-25] MEDS: ATORVASTATIN 20 MG TAB PO SCH (10:19)
[2022-11-25] MEDS: APIXABAN 2.5 MG TAB (ELIQUIS) PO SCH ×2 (10:19→20:28)
[2022-11-25] MEDS: LACTOBACILLUS ACIDOPHILUS CAP (BACID) PO SCH ×3 (10:20→17:26)
[2022-11-25] MEDS: LACTIC ACID 12% LOTION 225 GM BTL TOP SCH ×2 (10:21→20:29)
[2022-11-25] MEDS: diphenhydrAMINE CREAM 30GM TOP SCH ×2 (11:37→20:29)
[2022-11-25] MEDS: ALBUTEROL 90 MCG/ACT 8GM HFA INHALER INH PRN (12:15)
[2022-11-25 14:00] VITALS: BP 92/54; TEMP 97.2; O2SAT 94
[2022-11-25] MEDS ORDERED: MIDODRINE 5 MG TAB PO ONE (15:00)
[2022-11-25] MEDS ORDERED: LevoFLOXacin 250 MG TABLET PO SCH (16:00)
[2022-11-25] MEDS: MIDODRINE 2.5 MG TAB PO SCH (17:26)
[2022-11-25 17:28] VITALS: BP 100/48
[2022-11-25] MEDS: ACETAMINOPHEN TAB 650MG DOSE (2X325MG) PO PRN (18:46)
[2022-11-25] MEDS ORDERED: MIRALAX *UNIT DOSE* 17GM PACKET PO PRN (18:50)
[2022-11-25] MEDS ORDERED: LACTULOSE 20GM/30ML SYRUP UDC PO PRN (18:50)
[2022-11-25] MEDS: allopurinoL 300 MG TAB PO SCH (20:28)
[2022-11-25] MEDS: TAMSULOSIN 0.4 MG CAP PO SCH (20:28)
[2022-11-25 21:00] VITALS: BP 106/91; TEMP 97.5; O2SAT 96
[2022-11-26] MEDS: SENOKOT S TAB PO PRN (00:19)
[2022-11-26] MEDS: LEVOTHYROXINE 25MCG TABLET (0.025MG) PO SCH (05:18)
[2022-11-26 05:59] VITALS: BP 96/52; TEMP 97.2; O2SAT 96
[2022-11-26] MEDS ORDERED: LevoFLOXacin 250 MG TABLET PO SCH (09:00)
[2022-11-26] MEDS: APIXABAN 2.5 MG TAB (ELIQUIS) PO SCH ×2 (09:59→20:06)
[2022-11-26] MEDS: MIDODRINE 2.5 MG TAB PO SCH (09:59)
[2022-11-26] MEDS: MULTIVITAMINS/MINERALS THERAP 1 TAB PO SCH ×2 (09:59→10:20)
[2022-11-26] MEDS: ATORVASTATIN 20 MG TAB PO SCH ×2 (09:59→10:19)
[2022-11-26] MEDS: MAGNESIUM GLUCONATE 500 MG TAB PO SCH ×3 (09:59→20:05)
[2022-11-26] MEDS: LACTOBACILLUS ACIDOPHILUS CAP (BACID) PO SCH ×4 (09:59→18:21)
[2022-11-26] MEDS: ASPIRIN 81MG ENTERIC TABLET PO SCH ×2 (09:59→10:19)
[2022-11-26] MEDS: diphenhydrAMINE CREAM 30GM TOP SCH (10:00)
[2022-11-26] MEDS: LACTIC ACID 12% LOTION 225 GM BTL TOP SCH ×2 (10:00→20:07)
[2022-11-26] MEDS ORDERED: MIDODRINE 5 MG TAB PO SCH (12:00)
[2022-11-26 13:00] LABS: BASO % 0.1 % (0.0-1.0); EOS # 1.9 10^3/uL (0.0-0.5); EOS % 19.3 % (0.0-3.0); HEMATOCRIT 32.3 % (42.0-52.0); HEMOGLOBIN 10.7 g/dl (13.5-17.5); LYMPH # 0.9 10^3/uL (1.5-5.0); LYMPH % 9.5 % (24.0-44.0); MEAN CORPUSCULAR HEMOGLOBIN 34.7 pg (27.0-33.0); MEAN CORPUSCULAR HGB CONC 33.1 g/dl (32.0-36.5); MEAN CORPUSCULAR VOLUME 104.9 fl (80.0-96.0); MONO # 0.6 10^3/uL (0.0-0.8); MONO % 6.2 % (2.0-8.0); NEUTROPHILS # 6.2 10^3/uL (1.5-8.5); NEUTROPHILS % 64.6 % (36.0-66.0); PLATELET COUNT, AUTOMATED 137 10^3/uL (150-450); RED BLOOD COUNT 3.08 10^6/uL (4.30-6.10); WHITE BLOOD COUNT 9.6 10^3/uL (4.0-10.0)
[2022-11-26] MEDS ORDERED: diphenhydrAMINE CREAM 30GM TOP SCH (13:00)
[2022-11-26 13:28] LABS: C REACTIVE PROTEIN QUANTITATIV 7.8 MG/DL (<1.0)
[2022-11-26 13:29] LABS: CALCIUM LEVEL 8.5 MG/DL (8.3-10.6); CREATININE FOR GFR 6.4 MG/DL (0.70-1.30); GLOMERULAR FILTRATION RATE 8.9 (>35); POTASSIUM SERUM 3.9 MMOL/L (3.5-5.1)
[2022-11-26 13:34] LABS: PROCALCITONIN 0.57 ng/ml
[2022-11-26 13:58] LABS: ERYTHROCYTE SEDIMENTATION RATE 69 mm/hr (0-20)
[2022-11-26 14:00] VITALS: BP 84/72; TEMP 97; O2SAT 97
[2022-11-26] MEDS ORDERED: NS 1,000 ML IV ONE ×2 (14:50→16:55)
[2022-11-26] MEDS ORDERED: PIPERACILLIN/TAZOBACTAM SOD 2.25 GM in D5W MINI-BAG PLUS 50 ML IV SCH (14:55)
[2022-11-26] MEDS ORDERED: NS 1,000 ML IV SCH (15:00)
[2022-11-26] MEDS ORDERED: MEROPENEM INJ 1 GM in IV 1 EA IV SCH (15:00)
[2022-11-26] MEDS ORDERED: MIDODRINE 5 MG TAB PO ONE (15:00)
[2022-11-26 15:12] VITALS: BP 85/60
[2022-11-26] MEDS ORDERED: MEROPENEM INJ 500 MG in IV 1 EA IV SCH (17:00)
[2022-11-26] MEDS ORDERED: methylPREDNISolone 125MG 2ML VIAL IV ONE (18:05)
[2022-11-26] MEDS ORDERED: VANCOMYCIN HCL 750 MG, VIAL MATE ADAPTER 1 EACH in D5W 250 ML IV ONE (20:00)
[2022-11-26] MEDS: allopurinoL 300 MG TAB PO SCH (20:06)
[2022-11-26 21:00] VITALS: BP 104/68; TEMP 97; O2SAT 97
[2022-11-26] MEDS ORDERED: VANCOMYCIN HCL 500 MG in D5W MINI-BAG PLUS 100 ML IV ONE (21:00)
[2022-11-26] MEDS: TRIAMCINOLONE ACET 0.1% OINTMENT 80GM TOP SCH (21:22)
[2022-11-27 05:10] VITALS: BP 141/80; TEMP 97.2; O2SAT 97
[2022-11-27] MEDS ORDERED: COSYNTROPIN 0.25 MG/ML 1ML VIAL IV ONE (06:00)
[2022-11-27 06:01] LABS: BASO % 0.2 % (0.0-1.0); EOS % 0.6 % (0.0-3.0); HEMATOCRIT 30.3 % (42.0-52.0); HEMOGLOBIN 9.9 g/dl (13.5-17.5); LYMPH # 0.3 10^3/uL (1.5-5.0); LYMPH % 5.5 % (24.0-44.0); MEAN CORPUSCULAR HEMOGLOBIN 34.5 pg (27.0-33.0); MEAN CORPUSCULAR HGB CONC 32.7 g/dl (32.0-36.5); MEAN CORPUSCULAR VOLUME 105.6 fl (80.0-96.0); MONO # 0.1 10^3/uL (0.0-0.8); NEUTROPHILS # 5.7 10^3/uL (1.5-8.5); NEUTROPHILS % 92.2 % (36.0-66.0); PLATELET COUNT, AUTOMATED 140 10^3/uL (150-450); RED BLOOD COUNT 2.87 10^6/uL (4.30-6.10); WHITE BLOOD COUNT 6.2 10^3/uL (4.0-10.0)
[2022-11-27 06:17] LABS: VANCOMYCIN RANDOM 18.7 UG/ML
[2022-11-27 06:18] LABS: CREATININE FOR GFR 6.05 MG/DL (0.70-1.30); GLOMERULAR FILTRATION RATE 9.4 (>35); POTASSIUM SERUM 4.1 MMOL/L (3.5-5.1)
[2022-11-27] MEDS: LEVOTHYROXINE 37.5MCG PER 1/2TAB (0.0375MG) PO SCH (06:25)
[2022-11-27 08:00] VITALS: BP 127/84; TEMP 97.2; O2SAT 97
[2022-11-27] MEDS ORDERED: VANCOMYCIN HCL 1,000 MG, VIAL MATE ADAPTER 1 EACH in D5W 250 ML IV SCH (08:00)
[2022-11-27] MEDS ORDERED: MIDODRINE 5 MG TAB PO SCH (08:00)
[2022-11-27] MEDS: ATORVASTATIN 20 MG TAB PO SCH (08:21)
[2022-11-27] MEDS: ASPIRIN 81MG ENTERIC TABLET PO SCH (08:21)
[2022-11-27] MEDS: LACTOBACILLUS ACIDOPHILUS CAP (BACID) PO SCH ×3 (08:21→18:00)
[2022-11-27] MEDS: MAGNESIUM GLUCONATE 500 MG TAB PO SCH ×2 (08:21→20:42)
[2022-11-27] MEDS: FINASTERIDE 5MG TAB PO SCH (08:21)
[2022-11-27] MEDS: APIXABAN 2.5 MG TAB (ELIQUIS) PO SCH ×2 (08:21→20:42)
[2022-11-27] MEDS: MULTIVITAMINS/MINERALS THERAP 1 TAB PO SCH (08:22)
[2022-11-27] MEDS: LACTIC ACID 12% LOTION 225 GM BTL TOP SCH ×2 (08:24→20:42)
[2022-11-27] MEDS: TRIAMCINOLONE ACET 0.1% OINTMENT 80GM TOP SCH ×2 (08:25→20:43)
[2022-11-27 14:00] VITALS: BP 121/81; TEMP 98.1; O2SAT 95
[2022-11-27] MEDS: ALBUTEROL 90 MCG/ACT 8GM HFA INHALER INH PRN (19:51)
[2022-11-27] MEDS: allopurinoL 300 MG TAB PO SCH (20:42)
[2022-11-27] MEDS ORDERED: IPRATROPIUM 0.5MG/ALBUTEROL 2.5MG INH SOL UD 3ML (DUONEB) NEB PRN (21:00)
[2022-11-27 21:30] VITALS: BP 123/76; TEMP 97.7; O2SAT 94
[2022-11-27] MEDS: guaiFENesin ER TABLET 600 MG TAB PO SCH (21:38)
[2022-11-27] MEDS: IPRATROPIUM 0.5MG/ALBUTEROL 2.5MG INH SOL UD 3ML (DUONEB) NEB SCH (21:42)
[2022-11-28] MEDS: IPRATROPIUM 0.5MG/ALBUTEROL 2.5MG INH SOL UD 3ML (DUONEB) NEB SCH ×7 (01:06→23:01)
[2022-11-28 04:40] VITALS: BP 113/70; TEMP 97.7; O2SAT 93
[2022-11-28] MEDS: LEVOTHYROXINE 37.5MCG PER 1/2TAB (0.0375MG) PO SCH (05:47)
[2022-11-28 06:51] LABS: VANCOMYCIN RANDOM 16.7 UG/ML
[2022-11-28 06:53] LABS: CALCIUM LEVEL 8.2 MG/DL (8.3-10.6); CREATININE FOR GFR 6.04 MG/DL (0.70-1.30); GLOMERULAR FILTRATION RATE 9.5 (>35); POTASSIUM SERUM 4.2 MMOL/L (3.5-5.1)
[2022-11-28] MEDS: LACTIC ACID 12% LOTION 225 GM BTL TOP SCH ×2 (08:32→20:51)
[2022-11-28] MEDS: TRIAMCINOLONE ACET 0.1% OINTMENT 80GM TOP SCH ×2 (08:32→20:50)
[2022-11-28] MEDS: LACTOBACILLUS ACIDOPHILUS CAP (BACID) PO SCH ×3 (08:33→17:45)
[2022-11-28] MEDS: ATORVASTATIN 20 MG TAB PO SCH (08:33)
[2022-11-28] MEDS: ASPIRIN 81MG ENTERIC TABLET PO SCH (08:33)
[2022-11-28] MEDS: MULTIVITAMINS/MINERALS THERAP 1 TAB PO SCH (08:33)
[2022-11-28] MEDS: MAGNESIUM GLUCONATE 500 MG TAB PO SCH ×2 (08:34→20:50)
[2022-11-28] MEDS: FINASTERIDE 5MG TAB PO SCH (08:34)
[2022-11-28] MEDS: guaiFENesin ER TABLET 600 MG TAB PO SCH ×2 (08:34→20:50)
[2022-11-28] MEDS: APIXABAN 2.5 MG TAB (ELIQUIS) PO SCH (08:34)
[2022-11-28] MEDS ORDERED: methylPREDNISolone 125MG 2ML VIAL IV ONE (09:00)
[2022-11-28] MEDS ORDERED: DARBEPOETIN 100MCG/0.5ML *NON-DIALYSIS* SYRINGE SC SCH (09:00)
[2022-11-28 13:08] VITALS: BP 125/73; TEMP 97.9; O2SAT 95
[2022-11-28] MEDS: methylPREDNISolone 40MG 1ML VIAL IV SCH ×2 (17:45→20:51)
[2022-11-28 19:45] VITALS: O2SAT 96
[2022-11-28] MEDS: allopurinoL 300 MG TAB PO SCH (20:50)
[2022-11-28] MEDS: ACETAMINOPHEN TAB 650MG DOSE (2X325MG) PO PRN (20:50)
[2022-11-28 22:38] VITALS: BP 127/71; TEMP 98.2; O2SAT 94
[2022-11-29] MEDS: RAMELTEON 8 MG TAB (ROZEREM) PO PRN (00:21)
[2022-11-29] MEDS: IPRATROPIUM 0.5MG/ALBUTEROL 2.5MG INH SOL UD 3ML (DUONEB) NEB SCH ×6 (04:00→23:42)
[2022-11-29] MEDS: methylPREDNISolone 40MG 1ML VIAL IV SCH ×4 (04:57→21:45)
[2022-11-29] MEDS: LEVOTHYROXINE 37.5MCG PER 1/2TAB (0.0375MG) PO SCH (04:58)
[2022-11-29 05:00] VITALS: BP 133/78; TEMP 98.2; O2SAT 94
[2022-11-29 07:33] LABS: BASO % 0.1 % (0.0-1.0); EOS % 0.1 % (0.0-3.0); HEMATOCRIT 27.3 % (42.0-52.0); HEMOGLOBIN 9.1 g/dl (13.5-17.5); LYMPH # 0.6 10^3/uL (1.5-5.0); LYMPH % 5.5 % (24.0-44.0); MEAN CORPUSCULAR HEMOGLOBIN 34.7 pg (27.0-33.0); MEAN CORPUSCULAR HGB CONC 33.3 g/dl (32.0-36.5); MEAN CORPUSCULAR VOLUME 104.2 fl (80.0-96.0); MONO # 0.3 10^3/uL (0.0-0.8); NEUTROPHILS % 89.9 % (36.0-66.0); PLATELET COUNT, AUTOMATED 136 10^3/uL (150-450); RED BLOOD COUNT 2.62 10^6/uL (4.30-6.10); WHITE BLOOD COUNT 11.1 10^3/uL (4.0-10.0)
[2022-11-29] MEDS: ASPIRIN 81MG ENTERIC TABLET PO SCH (07:54)
[2022-11-29 07:59] LABS: CALCIUM LEVEL 8.2 MG/DL (8.3-10.6); CREATININE FOR GFR 6.14 MG/DL (0.70-1.30); GLOMERULAR FILTRATION RATE 9.3 (>35)
[2022-11-29] MEDS ORDERED: diphenhydrAMINE CREAM 30GM TOP PRN (09:30)
[2022-11-29] MEDS: FINASTERIDE 5MG TAB PO SCH (09:48)
[2022-11-29] MEDS: ATORVASTATIN 20 MG TAB PO SCH (09:48)
[2022-11-29] MEDS: LACTOBACILLUS ACIDOPHILUS CAP (BACID) PO SCH ×3 (09:48→17:26)
[2022-11-29] MEDS: guaiFENesin ER TABLET 600 MG TAB PO SCH (09:48)
[2022-11-29] MEDS: MULTIVITAMINS/MINERALS THERAP 1 TAB PO SCH (09:48)
[2022-11-29] MEDS: LACTIC ACID 12% LOTION 225 GM BTL TOP SCH ×2 (09:50→20:25)
[2022-11-29] MEDS: TRIAMCINOLONE ACET 0.1% OINTMENT 80GM TOP SCH ×2 (09:50→20:25)
[2022-11-29] MEDS ORDERED: ACETAMINOPHEN 500 MG TAB PO ONE (10:00)
[2022-11-29] MEDS: MAGNESIUM GLUCONATE 500 MG TAB PO SCH ×2 (10:01→20:23)
[2022-11-29] MEDS ORDERED: guaiFENesin SYRUP 200MG 10ML UDC PO PRN (12:00)
[2022-11-29] MEDS ORDERED: LIDOCAINE W/EPINEPHRINE 1% 20ML VIAL As Ordered ONE (12:03)
[2022-11-29] MEDS ORDERED: VANCOMYCIN 1000MG/20ML VIAL As Ordered ONE (12:03)
[2022-11-29] MEDS ORDERED: HEPARIN 1,000UNITS/ML 10ML VIAL (FOR RADIOLOGY & DIALYSIS ONLY) As Ordered ONE (12:03)
[2022-11-29] MEDS ORDERED: NS 1,000 ML IV SCH (12:25)
[2022-11-29] MEDS ORDERED: MIDAZOLAM INJ 2MG/2ML VIAL As Ordered ONE (12:44)
[2022-11-29 14:00] VITALS: BP 137/95; TEMP 97.3; O2SAT 95
[2022-11-29 16:33] LABS: C REACTIVE PROTEIN QUANTITATIV 3.9 MG/DL (<1.0)
[2022-11-29] MEDS: ACETAMINOPHEN TAB 650MG DOSE (2X325MG) PO PRN (17:27)
[2022-11-29] MEDS: SENOKOT S TAB PO PRN (17:27)
[2022-11-29] MEDS: PANTOPRAZOLE 40MG TAB (PROTONIX) PO SCH (17:35)
[2022-11-29] MEDS ORDERED: SUCRALFATE SUSP 1GM/10ML UD PO ONE (19:25)
[2022-11-29] MEDS ORDERED: NALOXONE INJ 0.4MG/1ML VIAL IV PRN (19:25)
[2022-11-29] MEDS: SUCRALFATE SUSP 1GM/10ML UD PO SCH (20:23)
[2022-11-29] MEDS: allopurinoL 300 MG TAB PO SCH (20:24)
[2022-11-29] MEDS: ACETAMINOPHEN 500 MG TAB PO SCH (20:24)
[2022-11-29 22:00] VITALS: BP 129/69; TEMP 97.7; O2SAT 94
[2022-11-30] MEDS: methylPREDNISolone 40MG 1ML VIAL IV SCH ×5 (03:49→21:13)
[2022-11-30] MEDS: IPRATROPIUM 0.5MG/ALBUTEROL 2.5MG INH SOL UD 3ML (DUONEB) NEB SCH ×6 (04:00→20:12)
[2022-11-30] MEDS: LEVOTHYROXINE 37.5MCG PER 1/2TAB (0.0375MG) PO SCH (05:37)
[2022-11-30 06:00] VITALS: BP 113/57; TEMP 97.8; O2SAT 97
[2022-11-30] MEDS ORDERED: oxyCODONE 5MG TAB PO SCH (06:00)
[2022-11-30] MEDS ORDERED: HEPARIN 1,000UNITS/ML 10ML VIAL (FOR RADIOLOGY & DIALYSIS ONLY) XX SCH (07:10)
[2022-11-30] MEDS ORDERED: SODIUM CHLORIDE 0.9% 1000ML IV PRN (07:10)
[2022-11-30] MEDS ORDERED: HEPARIN 1,000UNITS/ML 10ML VIAL (FOR RADIOLOGY & DIALYSIS ONLY) IV PRN (07:10)
[2022-11-30 07:30] LABS: EOS % 0.1 % (0.0-3.0); HEMATOCRIT 25.6 % (42.0-52.0); HEMOGLOBIN 8.6 g/dl (13.5-17.5); LYMPH # 0.6 10^3/uL (1.5-5.0); MEAN CORPUSCULAR HGB CONC 33.6 g/dl (32.0-36.5); MEAN CORPUSCULAR VOLUME 104.1 fl (80.0-96.0); MONO # 0.5 10^3/uL (0.0-0.8); MONO % 4.8 % (2.0-8.0); NEUTROPHILS % 86.9 % (36.0-66.0); PLATELET COUNT, AUTOMATED 127 10^3/uL (150-450); RED BLOOD COUNT 2.46 10^6/uL (4.30-6.10); WHITE BLOOD COUNT 10.4 10^3/uL (4.0-10.0)
[2022-11-30] MEDS: SUCRALFATE SUSP 1GM/10ML UD PO SCH ×4 (07:30→21:14)
[2022-11-30 07:57] LABS: BLOOD UREA NITROGEN 95 MG/DL (9-23); CALCIUM LEVEL 8.2 MG/DL (8.3-10.6); CARBON DIOXIDE LEVEL 26 MMOL/L (20-31); CHLORIDE LEVEL 104 MMOL/L (98-107); CREATININE FOR GFR 6.24 MG/DL (0.70-1.30); GLOMERULAR FILTRATION RATE 9.1 (>35); GLUCOSE, FASTING 213 MG/DL (74-106); SODIUM LEVEL 140 MMOL/L (136-145)
[2022-11-30] MEDS: LACTOBACILLUS ACIDOPHILUS CAP (BACID) PO SCH ×3 (08:00→17:38)
[2022-11-30] MEDS: ACETAMINOPHEN 500 MG TAB PO SCH ×3 (09:00→21:13)
[2022-11-30] MEDS: FINASTERIDE 5MG TAB PO SCH (12:54)
[2022-11-30] MEDS: ATORVASTATIN 20 MG TAB PO SCH (12:54)
[2022-11-30] MEDS: MULTIVITAMINS/MINERALS THERAP 1 TAB PO SCH (12:54)
[2022-11-30] MEDS: PANTOPRAZOLE 40MG TAB (PROTONIX) PO SCH (12:54)
[2022-11-30] MEDS: ASPIRIN 81MG ENTERIC TABLET PO SCH (12:55)
[2022-11-30] MEDS: MAGNESIUM GLUCONATE 500 MG TAB PO SCH ×2 (12:55→21:25)
[2022-11-30] MEDS: LACTIC ACID 12% LOTION 225 GM BTL TOP SCH ×2 (12:56→21:14)
[2022-11-30] MEDS: TRIAMCINOLONE ACET 0.1% OINTMENT 80GM TOP SCH ×2 (12:56→21:14)
[2022-11-30] MEDS: SENOKOT S TAB PO PRN (15:36)
[2022-11-30] MEDS ORDERED: VANCOMYCIN HCL 1,000 MG, VIAL MATE ADAPTER 1 EACH in D5W 250 ML IV ONE (16:00)
[2022-11-30 18:30] VITALS: BP 110/70; TEMP 98.1; O2SAT 95
[2022-11-30 20:44] VITALS: BP 120/83; TEMP 98.8; O2SAT 94
[2022-11-30] MEDS: allopurinoL 300 MG TAB PO SCH (21:13)
[2022-12-01] MEDS: IPRATROPIUM 0.5MG/ALBUTEROL 2.5MG INH SOL UD 3ML (DUONEB) NEB SCH ×5 (00:58→19:19)
[2022-12-01] MEDS: methylPREDNISolone 40MG 1ML VIAL IV SCH ×4 (04:37→20:56)
[2022-12-01 05:09] VITALS: BP 146/85; TEMP 98.1; O2SAT 94
[2022-12-01] MEDS: LEVOTHYROXINE 37.5MCG PER 1/2TAB (0.0375MG) PO SCH (05:40)
[2022-12-01 06:35] LABS: BASO % 0.1 % (0.0-1.0); HEMOGLOBIN 8.7 g/dl (13.5-17.5); LYMPH # 0.8 10^3/uL (1.5-5.0); LYMPH % 7.4 % (24.0-44.0); MEAN CORPUSCULAR HEMOGLOBIN 35.2 pg (27.0-33.0); MEAN CORPUSCULAR HGB CONC 33.5 g/dl (32.0-36.5); MEAN CORPUSCULAR VOLUME 105.3 fl (80.0-96.0); MONO # 0.7 10^3/uL (0.0-0.8); MONO % 6.8 % (2.0-8.0); NEUTROPHILS # 8.5 10^3/uL (1.5-8.5); NEUTROPHILS % 82.3 % (36.0-66.0); PLATELET COUNT, AUTOMATED 131 10^3/uL (150-450); RED BLOOD COUNT 2.47 10^6/uL (4.30-6.10); WHITE BLOOD COUNT 10.3 10^3/uL (4.0-10.0)
[2022-12-01 06:54] LABS: CREATININE FOR GFR 4.29 MG/DL (0.70-1.30); POTASSIUM SERUM 4.5 MMOL/L (3.5-5.1)
[2022-12-01] MEDS: PANTOPRAZOLE 40MG TAB (PROTONIX) PO SCH (08:49)
[2022-12-01] MEDS: LACTOBACILLUS ACIDOPHILUS CAP (BACID) PO SCH ×3 (08:49→16:52)
[2022-12-01] MEDS: ATORVASTATIN 20 MG TAB PO SCH (08:49)
[2022-12-01] MEDS: FINASTERIDE 5MG TAB PO SCH (08:49)
[2022-12-01] MEDS: MAGNESIUM GLUCONATE 500 MG TAB PO SCH ×2 (08:49→20:57)
[2022-12-01] MEDS: MULTIVITAMINS/MINERALS THERAP 1 TAB PO SCH (08:49)
[2022-12-01] MEDS: ASPIRIN 81MG ENTERIC TABLET PO SCH (08:49)
[2022-12-01] MEDS: ACETAMINOPHEN 500 MG TAB PO SCH ×3 (08:50→20:58)
[2022-12-01] MEDS: TRIAMCINOLONE ACET 0.1% OINTMENT 80GM TOP SCH (08:50)
[2022-12-01] MEDS: SUCRALFATE SUSP 1GM/10ML UD PO SCH ×4 (08:51→21:02)
[2022-12-01] MEDS: LACTIC ACID 12% LOTION 225 GM BTL TOP SCH ×2 (08:51→20:58)
[2022-12-01] MEDS: MIRALAX *UNIT DOSE* 17GM PACKET PO SCH ×2 (09:27→20:57)
[2022-12-01 14:00] VITALS: BP 101/59; TEMP 97.7; O2SAT 90
[2022-12-01 20:20] VITALS: BP 126/72; TEMP 97.9; O2SAT 96
[2022-12-01] MEDS: allopurinoL 300 MG TAB PO SCH (20:57)
[2022-12-01] MEDS: RAMELTEON 8 MG TAB (ROZEREM) PO PRN (20:57)
[2022-12-01] MEDS: SENOKOT S TAB PO PRN (20:57)
[2022-12-02] MEDS: IPRATROPIUM 0.5MG/ALBUTEROL 2.5MG INH SOL UD 3ML (DUONEB) NEB SCH ×7 (00:09→23:31)
[2022-12-02] MEDS: methylPREDNISolone 40MG 1ML VIAL IV SCH ×4 (03:56→21:48)
[2022-12-02] MEDS: LEVOTHYROXINE 37.5MCG PER 1/2TAB (0.0375MG) PO SCH (05:49)
[2022-12-02 06:00] VITALS: BP 148/90; TEMP 98.4; O2SAT 98
[2022-12-02 06:10] LABS: BASO % 0.2 % (0.0-1.0); EOS % 0.1 % (0.0-3.0); HEMATOCRIT 27.3 % (42.0-52.0); HEMOGLOBIN 9.4 g/dl (13.5-17.5); LYMPH # 0.6 10^3/uL (1.5-5.0); LYMPH % 5.4 % (24.0-44.0); MEAN CORPUSCULAR HEMOGLOBIN 35.5 pg (27.0-33.0); MEAN CORPUSCULAR HGB CONC 34.4 g/dl (32.0-36.5); MONO # 0.4 10^3/uL (0.0-0.8); MONO % 3.6 % (2.0-8.0); NEUTROPHILS # 9.3 10^3/uL (1.5-8.5); NEUTROPHILS % 86.1 % (36.0-66.0); PLATELET COUNT, AUTOMATED 128 10^3/uL (150-450); RED BLOOD COUNT 2.65 10^6/uL (4.30-6.10); WHITE BLOOD COUNT 10.8 10^3/uL (4.0-10.0)
[2022-12-02] MEDS ORDERED: SODIUM CHLORIDE 0.9% 1000ML IV PRN (06:25)
[2022-12-02] MEDS ORDERED: HEPARIN 1,000UNITS/ML 10ML VIAL (FOR RADIOLOGY & DIALYSIS ONLY) XX SCH (06:25)
[2022-12-02] MEDS ORDERED: HEPARIN 1,000UNITS/ML 10ML VIAL (FOR RADIOLOGY & DIALYSIS ONLY) IV PRN (06:25)
[2022-12-02 06:43] LABS: CALCIUM LEVEL 8.4 MG/DL (8.3-10.6); CREATININE FOR GFR 5.37 MG/DL (0.70-1.30); GLOMERULAR FILTRATION RATE 10.8 (>35); POTASSIUM SERUM 4.7 MMOL/L (3.5-5.1)
[2022-12-02] MEDS: FINASTERIDE 5MG TAB PO SCH (06:44)
[2022-12-02] MEDS: SUCRALFATE SUSP 1GM/10ML UD PO SCH ×4 (06:44→20:10)
[2022-12-02] MEDS: PANTOPRAZOLE 40MG TAB (PROTONIX) PO SCH (06:44)
[2022-12-02] MEDS: MULTIVITAMINS/MINERALS THERAP 1 TAB PO SCH (06:44)
[2022-12-02] MEDS: ACETAMINOPHEN 500 MG TAB PO SCH ×3 (06:45→20:11)
[2022-12-02] MEDS: ASPIRIN 81MG ENTERIC TABLET PO SCH (06:45)
[2022-12-02] MEDS: SENOKOT S TAB PO PRN ×2 (06:45→20:11)
[2022-12-02] MEDS: MAGNESIUM GLUCONATE 500 MG TAB PO SCH ×2 (06:45→20:11)
[2022-12-02] MEDS: MIRALAX *UNIT DOSE* 17GM PACKET PO SCH ×2 (06:45→20:12)
[2022-12-02] MEDS: ATORVASTATIN 20 MG TAB PO SCH (06:45)
[2022-12-02] MEDS: LACTOBACILLUS ACIDOPHILUS CAP (BACID) PO SCH ×3 (06:45→17:02)
[2022-12-02] MEDS: LACTIC ACID 12% LOTION 225 GM BTL TOP SCH ×2 (06:46→20:12)
[2022-12-02 08:00] VITALS: BP 118/68; TEMP 98.1; O2SAT 98
[2022-12-02 20:00] VITALS: BP 136/80; TEMP 98.6; O2SAT 96
[2022-12-02] MEDS: RAMELTEON 8 MG TAB (ROZEREM) PO PRN (20:11)
[2022-12-02] MEDS: APIXABAN 2.5 MG TAB (ELIQUIS) PO SCH (20:12)
[2022-12-02] MEDS: allopurinoL 300 MG TAB PO SCH (20:12)
[2022-12-03] MEDS: methylPREDNISolone 40MG 1ML VIAL IV SCH ×2 (03:42→08:46)
[2022-12-03] MEDS: IPRATROPIUM 0.5MG/ALBUTEROL 2.5MG INH SOL UD 3ML (DUONEB) NEB SCH ×5 (04:18→19:24)
[2022-12-03] MEDS: LEVOTHYROXINE 37.5MCG PER 1/2TAB (0.0375MG) PO SCH (05:50)
[2022-12-03 06:00] VITALS: BP 135/80; TEMP 98.8; O2SAT 92
[2022-12-03] MEDS: ASPIRIN 81MG ENTERIC TABLET PO SCH (08:44)
[2022-12-03] MEDS: SUCRALFATE SUSP 1GM/10ML UD PO SCH ×4 (08:44→20:56)
[2022-12-03] MEDS: MAGNESIUM GLUCONATE 500 MG TAB PO SCH ×2 (08:44→20:56)
[2022-12-03] MEDS: ACETAMINOPHEN 500 MG TAB PO SCH ×3 (08:45→20:57)
[2022-12-03] MEDS: APIXABAN 2.5 MG TAB (ELIQUIS) PO SCH ×2 (08:45→20:56)
[2022-12-03] MEDS: MULTIVITAMINS/MINERALS THERAP 1 TAB PO SCH ×2 (08:45→08:52)
[2022-12-03] MEDS: LACTOBACILLUS ACIDOPHILUS CAP (BACID) PO SCH ×3 (08:45→16:59)
[2022-12-03] MEDS: ATORVASTATIN 20 MG TAB PO SCH (08:45)
[2022-12-03] MEDS: FINASTERIDE 5MG TAB PO SCH (08:45)
[2022-12-03] MEDS: PANTOPRAZOLE 40MG TAB (PROTONIX) PO SCH (08:45)
[2022-12-03] MEDS: MIRALAX *UNIT DOSE* 17GM PACKET PO SCH ×2 (08:46→20:56)
[2022-12-03] MEDS: LACTIC ACID 12% LOTION 225 GM BTL TOP SCH ×2 (08:46→21:14)
[2022-12-03 09:55] LABS: BASO % 0.1 % (0.0-1.0); HEMOGLOBIN 8.4 g/dl (13.5-17.5); LYMPH # 0.2 10^3/uL (1.5-5.0); MEAN CORPUSCULAR HGB CONC 33.6 g/dl (32.0-36.5); MEAN CORPUSCULAR VOLUME 104.2 fl (80.0-96.0); MONO # 0.5 10^3/uL (0.0-0.8); NEUTROPHILS # 10.3 10^3/uL (1.5-8.5); NEUTROPHILS % 91.5 % (36.0-66.0); PLATELET COUNT, AUTOMATED 124 10^3/uL (150-450); WHITE BLOOD COUNT 11.3 10^3/uL (4.0-10.0)
[2022-12-03 10:16] LABS: CREATININE FOR GFR 3.55 MG/DL (0.70-1.30); GLOMERULAR FILTRATION RATE 17.4 (>35); POTASSIUM SERUM 4.3 MMOL/L (3.5-5.1)
[2022-12-03 14:00] VITALS: BP 120/83; TEMP 98.4; O2SAT 96
[2022-12-03 20:43] VITALS: BP 113/63; TEMP 98.6; O2SAT 93
[2022-12-03] MEDS: RAMELTEON 8 MG TAB (ROZEREM) PO PRN (20:55)
[2022-12-03] MEDS: SENOKOT S TAB PO PRN (20:56)
[2022-12-03] MEDS: allopurinoL 300 MG TAB PO SCH (21:13)
[2022-12-04] MEDS: IPRATROPIUM 0.5MG/ALBUTEROL 2.5MG INH SOL UD 3ML (DUONEB) NEB SCH ×7 (00:17→23:36)
[2022-12-04 04:33] VITALS: BP 138/90; TEMP 98.6; O2SAT 97
[2022-12-04] MEDS: MAGNESIUM GLUCONATE 500 MG TAB PO SCH ×2 (05:42→19:49)
[2022-12-04] MEDS: FINASTERIDE 5MG TAB PO SCH (05:42)
[2022-12-04] MEDS: ASPIRIN 81MG ENTERIC TABLET PO SCH (05:42)
[2022-12-04] MEDS: ATORVASTATIN 20 MG TAB PO SCH (05:42)
[2022-12-04] MEDS: LEVOTHYROXINE 37.5MCG PER 1/2TAB (0.0375MG) PO SCH (05:42)
[2022-12-04] MEDS: PANTOPRAZOLE 40MG TAB (PROTONIX) PO SCH (05:43)
[2022-12-04] MEDS: APIXABAN 2.5 MG TAB (ELIQUIS) PO SCH ×2 (05:43→19:49)
[2022-12-04] MEDS: MULTIVITAMINS/MINERALS THERAP 1 TAB PO SCH (05:43)
[2022-12-04] MEDS: ACETAMINOPHEN 500 MG TAB PO SCH ×3 (05:43→19:50)
[2022-12-04] MEDS: MIRALAX *UNIT DOSE* 17GM PACKET PO SCH ×2 (05:44→21:42)
[2022-12-04] MEDS: LACTOBACILLUS ACIDOPHILUS CAP (BACID) PO SCH ×3 (05:46→16:55)
[2022-12-04] MEDS: SUCRALFATE SUSP 1GM/10ML UD PO SCH ×4 (05:46→19:50)
[2022-12-04] MEDS ORDERED: HEPARIN 1,000UNITS/ML 10ML VIAL (FOR RADIOLOGY & DIALYSIS ONLY) IV PRN (07:00)
[2022-12-04] MEDS ORDERED: HEPARIN 1,000UNITS/ML 10ML VIAL (FOR RADIOLOGY & DIALYSIS ONLY) XX SCH (07:00)
[2022-12-04] MEDS ORDERED: SODIUM CHLORIDE 0.9% 1000ML IV PRN (07:00)
[2022-12-04] MEDS: LACTIC ACID 12% LOTION 225 GM BTL TOP SCH ×2 (07:48→21:39)
[2022-12-04] MEDS: methylPREDNISolone 40MG 1ML VIAL IV SCH (07:50)
[2022-12-04 09:13] LABS: BASO % 0.1 % (0.0-1.0); EOS # 0.3 10^3/uL (0.0-0.5); EOS % 1.6 % (0.0-3.0); HEMATOCRIT 23.2 % (42.0-52.0); HEMOGLOBIN 7.8 g/dl (13.5-17.5); LYMPH # 1.4 10^3/uL (1.5-5.0); LYMPH % 7.9 % (24.0-44.0); MEAN CORPUSCULAR HEMOGLOBIN 35.9 pg (27.0-33.0); MEAN CORPUSCULAR HGB CONC 33.6 g/dl (32.0-36.5); MEAN CORPUSCULAR VOLUME 106.9 fl (80.0-96.0); MONO # 0.7 10^3/uL (0.0-0.8); NEUTROPHILS # 14.5 10^3/uL (1.5-8.5); NEUTROPHILS % 85.1 % (36.0-66.0); PLATELET COUNT, AUTOMATED 121 10^3/uL (150-450); RED BLOOD COUNT 2.17 10^6/uL (4.30-6.10); WHITE BLOOD COUNT 17.1 10^3/uL (4.0-10.0)
[2022-12-04 09:31] LABS: CALCIUM LEVEL 7.9 MG/DL (8.3-10.6); CREATININE FOR GFR 4.41 MG/DL (0.70-1.30); GLOMERULAR FILTRATION RATE 13.6 (>35); MAGNESIUM LEVEL 2.1 MG/DL (1.8-2.4); POTASSIUM SERUM 4.1 MMOL/L (3.5-5.1)
[2022-12-04] MEDS ORDERED: DARBEPOETIN 100MCG/0.5ML *DIALYSIS* SYRINGE IV SCH (10:40)
[2022-12-04 14:00] VITALS: BP 137/89; TEMP 98.2; O2SAT 96
[2022-12-04] MEDS ORDERED: QUEtiapine FUMARATE 25 MG TAB PO ONE (19:45)
[2022-12-04] MEDS: allopurinoL 300 MG TAB PO SCH (19:49)
[2022-12-04] MEDS: RAMELTEON 8 MG TAB (ROZEREM) PO PRN (19:49)
[2022-12-04 19:59] VITALS: BP 138/84; TEMP 98.2; O2SAT 98
[2022-12-04] MEDS: SENOKOT S TAB PO PRN (21:42)
[2022-12-04] MEDS ORDERED: OLANZapine INTRAMUSCULAR 10MG VIAL IM ONE (23:30)
[2022-12-05] MEDS: IPRATROPIUM 0.5MG/ALBUTEROL 2.5MG INH SOL UD 3ML (DUONEB) NEB SCH ×4 (03:18→15:07)
[2022-12-05] MEDS: LEVOTHYROXINE 37.5MCG PER 1/2TAB (0.0375MG) PO SCH (05:31)
[2022-12-05 05:45] VITALS: BP 133/83; TEMP 97.9; O2SAT 96
[2022-12-05] MEDS: methylPREDNISolone 40MG 1ML VIAL IV SCH (09:15)
[2022-12-05] MEDS: MIRALAX *UNIT DOSE* 17GM PACKET PO SCH (09:15)
[2022-12-05] MEDS: APIXABAN 2.5 MG TAB (ELIQUIS) PO SCH (09:15)
[2022-12-05] MEDS: ASPIRIN 81MG ENTERIC TABLET PO SCH (09:15)
[2022-12-05] MEDS: LACTIC ACID 12% LOTION 225 GM BTL TOP SCH (09:15)
[2022-12-05] MEDS: SUCRALFATE SUSP 1GM/10ML UD PO SCH ×3 (09:15→17:18)
[2022-12-05] MEDS: ATORVASTATIN 20 MG TAB PO SCH (09:16)
[2022-12-05] MEDS: FINASTERIDE 5MG TAB PO SCH (09:16)
[2022-12-05] MEDS: LACTOBACILLUS ACIDOPHILUS CAP (BACID) PO SCH ×3 (09:16→17:19)
[2022-12-05] MEDS: MAGNESIUM GLUCONATE 500 MG TAB PO SCH (09:16)
[2022-12-05] MEDS: SENOKOT S TAB PO PRN (09:16)
[2022-12-05] MEDS: MULTIVITAMINS/MINERALS THERAP 1 TAB PO SCH (09:16)
[2022-12-05] MEDS: ACETAMINOPHEN 500 MG TAB PO SCH ×3 (09:16→17:20)
[2022-12-05] MEDS: PANTOPRAZOLE 40MG TAB (PROTONIX) PO SCH (09:16)
[2022-12-05 14:00] VITALS: BP 99/72; TEMP 98.1; O2SAT 92
[2022-12-05] MEDS ORDERED: FLEET ENEMA PR PRN (17:25)
[2022-12-05] MEDS ORDERED: MORPHINE 10MG/0.5ML ORAL CONCENTRATE SOLUTION U/D SL PRN (17:25)
[2022-12-05] MEDS ORDERED: SCOPOLAMINE 1MG TRANSDERMAL PATCH TOP PRN (17:25)
[2022-12-05] MEDS ORDERED: ONDANSETRON 4MG 2ML VIAL IV PRN (17:25)
[2022-12-05] MEDS ORDERED: LORazepam 1 MG TAB PO PRN (17:25)
[2022-12-05 20:53] VITALS: BP 104/72; TEMP 98.1; O2SAT 97
[2022-12-08] MEDS ORDERED: ALBUTEROL SULFATE 2.5MG/0.5ML INH NEB SOLN NEB PRN (16:50)
[2022-12-08 18:00] VITALS: BP 107/71; TEMP 98.1; O2SAT 100
[2022-12-08] MEDS ORDERED: HEPARIN SOD (PORCINE) 5000UNITS/ML 1ML VIAL/SYRINGE PD ONE (18:00)
[2022-12-08] MEDS ORDERED: HEPARIN 1,000UNITS/ML 10ML VIAL (FOR RADIOLOGY & DIALYSIS ONLY) XX ONE (18:00)
[2022-12-08] MEDS: ADVAIR HFA 230/21MCG INHALER INH SCH (20:00)
[2022-12-08 20:18] VITALS: BP 139/62; TEMP 98.4; O2SAT 95
[2022-12-08] MEDS: TAMSULOSIN 0.4 MG CAP PO SCH (20:23)
[2022-12-08] MEDS: allopurinoL 300 MG TAB PO SCH (20:23)
[2022-12-08] MEDS: CARVedilol 6.25 MG TAB PO SCH (20:24)
[2022-12-09] VITALS (9 sets, daily range): BP systolic 78–120; BP diastolic 40–68; TEMP 97.3–99.1; O2SAT 91–98
[2022-12-09] MEDS: LEVOTHYROXINE 37.5MCG PER 1/2TAB (0.0375MG) PO SCH (05:07)
[2022-12-09 07:05] LABS: BASO % 0.1 % (0.0-1.0); EOS # 0.4 10^3/uL (0.0-0.5); EOS % 2.5 % (0.0-3.0); HEMATOCRIT 25.1 % (42.0-52.0); LYMPH # 0.4 10^3/uL (1.5-5.0); LYMPH % 2.6 % (24.0-44.0); MEAN CORPUSCULAR HEMOGLOBIN 34.3 pg (27.0-33.0); MEAN CORPUSCULAR HGB CONC 31.9 g/dl (32.0-36.5); MEAN CORPUSCULAR VOLUME 107.7 fl (80.0-96.0); MONO # 0.9 10^3/uL (0.0-0.8); MONO % 5.6 % (2.0-8.0); NEUTROPHILS # 14.8 10^3/uL (1.5-8.5); NEUTROPHILS % 88.7 % (36.0-66.0); PLATELET COUNT, AUTOMATED 150 10^3/uL (150-450); RED BLOOD COUNT 2.33 10^6/uL (4.30-6.10); WHITE BLOOD COUNT 16.6 10^3/uL (4.0-10.0)
[2022-12-09] MEDS: TIOTROPIUM INHALER/CAPSULE (SPIRIVA) INH SCH (07:14)
[2022-12-09] MEDS: ADVAIR HFA 230/21MCG INHALER INH SCH ×2 (07:14→19:21)
[2022-12-09 07:24] LABS: CALCIUM LEVEL 7.6 MG/DL (8.3-10.6); CREATININE FOR GFR 6.02 MG/DL (0.70-1.30); GLOMERULAR FILTRATION RATE 9.5 (>35); MAGNESIUM LEVEL 2.3 MG/DL (1.8-2.4); PHOSPHORUS LEVEL 5.9 MG/DL (2.4-5.1); POTASSIUM SERUM 4.1 MMOL/L (3.5-5.1)
[2022-12-09 08:27] LABS: PROCALCITONIN 0.6 ng/ml
[2022-12-09] MEDS: ASPIRIN 81MG ENTERIC TABLET PO SCH (10:18)
[2022-12-09] MEDS: CARVedilol 6.25 MG TAB PO SCH ×2 (10:19→20:55)
[2022-12-09] MEDS: ATORVASTATIN 20 MG TAB PO SCH (10:20)
[2022-12-09 11:47] LABS: PERITONEAL DIALYSATE FL COLOR COLORLESS (COLORLESS); SOURCE, BODY FLUID PERITONEAL DIALYSATE
[2022-12-09 11:48] LABS: APPEARANCE, BODY FLUID CLEAR (CLEAR)
[2022-12-09] MEDS: HEPARIN SOD (PORCINE) 5000UNITS/ML 1ML VIAL/SYRINGE SQ SCH ×2 (14:15→21:41)
[2022-12-09] MEDS ORDERED: NS 500 ML IV ONE (14:55)
[2022-12-09] MEDS: MIDODRINE 2.5 MG TAB PO SCH (16:04)
[2022-12-09] MEDS: allopurinoL 300 MG TAB PO SCH (20:28)
[2022-12-09] MEDS: TAMSULOSIN 0.4 MG CAP PO SCH (20:56)
[2022-12-10 02:00] VITALS: BP 114/59; TEMP 97.5; O2SAT 94
[2022-12-10] MEDS: LEVOTHYROXINE 37.5MCG PER 1/2TAB (0.0375MG) PO SCH (05:24)
[2022-12-10] MEDS: HEPARIN SOD (PORCINE) 5000UNITS/ML 1ML VIAL/SYRINGE SQ SCH ×2 (05:24→14:07)
[2022-12-10 06:00] VITALS: BP 109/57; TEMP 98.1; O2SAT 97
[2022-12-10 06:58] LABS: BASO % 0.1 % (0.0-1.0); EOS # 0.7 10^3/uL (0.0-0.5); EOS % 7.7 % (0.0-3.0); HEMATOCRIT 21.1 % (42.0-52.0); HEMOGLOBIN 7.1 g/dl (13.5-17.5); LYMPH # 0.5 10^3/uL (1.5-5.0); LYMPH % 5.6 % (24.0-44.0); MEAN CORPUSCULAR HEMOGLOBIN 36.2 pg (27.0-33.0); MEAN CORPUSCULAR HGB CONC 33.6 g/dl (32.0-36.5); MEAN CORPUSCULAR VOLUME 107.7 fl (80.0-96.0); MONO # 0.5 10^3/uL (0.0-0.8); MONO % 5.7 % (2.0-8.0); NEUTROPHILS # 7.2 10^3/uL (1.5-8.5); NEUTROPHILS % 80.2 % (36.0-66.0); PLATELET COUNT, AUTOMATED 136 10^3/uL (150-450); RED BLOOD COUNT 1.96 10^6/uL (4.30-6.10); WHITE BLOOD COUNT 8.9 10^3/uL (4.0-10.0)
[2022-12-10 07:18] LABS: ALBUMIN 1.6 G/DL (3.2-5.2); BILIRUBIN,TOTAL 0.3 MG/DL (0.3-1.2); CALCIUM LEVEL 7.3 MG/DL (8.3-10.6); CREATININE FOR GFR 5.67 MG/DL (0.70-1.30); GLOMERULAR FILTRATION RATE 10.2 (>35); MAGNESIUM LEVEL 2.1 MG/DL (1.8-2.4); POTASSIUM SERUM 3.6 MMOL/L (3.5-5.1); TOTAL PROTEIN 3.7 G/DL (5.7-8.2)
[2022-12-10] MEDS: TIOTROPIUM INHALER/CAPSULE (SPIRIVA) INH SCH (07:36)
[2022-12-10] MEDS: ADVAIR HFA 230/21MCG INHALER INH SCH ×2 (07:36→19:33)
[2022-12-10] MEDS: MIDODRINE 2.5 MG TAB PO SCH ×2 (08:09→16:37)
[2022-12-10] MEDS: ASPIRIN 81MG ENTERIC TABLET PO SCH (08:10)
[2022-12-10] MEDS: ATORVASTATIN 20 MG TAB PO SCH (08:10)
[2022-12-10 08:11] VITALS: BP 113/57
[2022-12-10] MEDS: CARVedilol 6.25 MG TAB PO SCH (08:11)
[2022-12-10] MEDS ORDERED: DARBEPOETIN 100MCG/0.5ML *NON-DIALYSIS* SYRINGE SC SCH (09:00)
[2022-12-10 10:30] VITALS: TEMP 97.9; O2SAT 96
[2022-12-10 12:40] VITALS: BP 115/57
[2022-12-10] MEDS ORDERED: LORazepam 1 MG TAB PO PRN (17:55)
[2022-12-10] MEDS ORDERED: HYOSCYAMINE SULFATE 0.125 MG SUBL TABLET PO PRN (17:55)
[2022-12-10] MEDS ORDERED: ONDANSETRON 4MG ORAL DISINTEGRATING TAB PO PRN (17:55)
[2022-12-11] MEDS: ADVAIR HFA 230/21MCG INHALER INH SCH ×2 (08:13→19:42)
[2022-12-11] MEDS ORDERED: CEPACOL LOZENGE PO PRN (10:05)
[2022-12-12] MEDS: CALCIUM CARBONATE 500 MG CHEW U/D PO PRN (02:30)
[2022-12-12] MEDS: ADVAIR HFA 230/21MCG INHALER INH SCH ×2 (07:21→19:26)
[2022-12-13] MEDS: CALCIUM CARBONATE 500 MG CHEW U/D PO PRN (02:33)
[2022-12-13] MEDS: MORPHINE 10MG/0.5ML ORAL CONCENTRATE SOLUTION U/D SL PRN ×4 (02:34→23:03)
[2022-12-13] MEDS: ADVAIR HFA 230/21MCG INHALER INH SCH ×2 (07:18→20:16)
[2022-12-13] MEDS ORDERED: SCOPOLAMINE 1MG TRANSDERMAL PATCH TOP SCH (12:30)
[2022-12-14] MEDS: ADVAIR HFA 230/21MCG INHALER INH SCH (07:28)
[2022-12-14] MEDS ORDERED: HYOS125TA PO (09:44)
[2022-12-14] MEDS ORDERED: MORP1SOL5 PO (09:44)
[2022-12-14] MEDS ORDERED: ATIV1TAB10 PO (09:44)
== END 2022-12-14 11:11 | disposition hospice, inpatient (51) | DRG 91 ==
LOC: M ED 17:13 → M ED INP 23:54 → M MSPAV 11-24 01:51
PROVIDERS: ADMIT Internal Medicine; ATTEND Internal Medicine
PROC: 3E1M39Z Irrigation of Peritoneal Cavity using Dialysate, Percutaneous Approach (ICD-10-PCS; 2022-11-23)
PROC: B246ZZZ Ultrasonography of Right and Left Heart (ICD-10-PCS; 2022-11-28)
PROC: 02H633Z Insertion of Infusion Device into Right Atrium, Percutaneous Approach (ICD-10-PCS; 2022-11-29)
PROC: 0JH63XZ Insertion of Tunneled Vascular Access Device into Chest Subcutaneous Tissue and Fascia, Percutaneous Approach (ICD-10-PCS; principal; 2022-11-29 11:00)
PROC: 5A1D70Z Performance of Urinary Filtration, Intermittent, Less than 6 Hours Per Day (ICD-10-PCS; 2022-11-30)
DX: G92.8 Other toxic encephalopathy (principal); N18.6 End stage renal disease; G93.41 Metabolic encephalopathy; I50.32 Chronic diastolic (congestive) heart failure; I13.2 Hypertensive heart and chronic kidney disease with heart failure and with stage 5 chronic kidney disease, or end stage renal disease; I48.20 Chronic atrial fibrillation, unspecified; E87.20 Acidosis, unspecified; N39.0 Urinary tract infection, site not specified; F01.511 Vascular dementia, unspecified severity, with agitation; J44.1 Chronic obstructive pulmonary disease with (acute) exacerbation; Z51.5 Encounter for palliative care; Z66 Do not resuscitate; R29.6 Repeated falls; R53.1 Weakness; E03.9 Hypothyroidism, unspecified; E78.5 Hyperlipidemia, unspecified; G47.33 Obstructive sleep apnea (adult) (pediatric); N40.0 Benign prostatic hyperplasia without lower urinary tract symptoms; E11.22 Type 2 diabetes mellitus with diabetic chronic kidney disease; M19.90 Unspecified osteoarthritis, unspecified site; M10.9 Gout, unspecified; E11.40 Type 2 diabetes mellitus with diabetic neuropathy, unspecified; Z99.2 Dependence on renal dialysis; Z98.42 Cataract extraction status, left eye; Z95.2 Presence of prosthetic heart valve; R41.0 Disorientation, unspecified; T45.0X5A Adverse effect of antiallergic and antiemetic drugs, initial encounter; L29.9 Pruritus, unspecified; L20.9 Atopic dermatitis, unspecified; G89.29 Other chronic pain; I25.10 Atherosclerotic heart disease of native coronary artery without angina pectoris; E86.1 Hypovolemia; D63.1 Anemia in chronic kidney disease; I95.3 Hypotension of hemodialysis; K74.60 Unspecified cirrhosis of liver; I71.43 Infrarenal abdominal aortic aneurysm, without rupture; K57.90 Diverticulosis of intestine, part unspecified, without perforation or abscess without bleeding; Z86.73 Personal history of transient ischemic attack (TIA), and cerebral infarction without residual deficits; Z79.01 Long term (current) use of anticoagulants; Z79.82 Long term (current) use of aspirin; Z79.890 Hormone replacement therapy; Z98.41 Cataract extraction status, right eye; Z87.891 Personal history of nicotine dependence; Z88.6 Allergy status to analgesic agent; Z79.899 Other long term (current) drug therapy